=== PATIENT | female | born 1950 | race Asian ===

== ENCOUNTER 2018-01-09 13:09 | Outpatient (CLI) | payer MEDICARE, BC, SELFPAY ==
[2018-01-09 13:44] LABS: Abs Immature Grans 0.01 k/cumm (0.0-0.09); Absolute Basophil Count 0.01 k/cumm (0.0-0.2); Absolute Eosinophil Count 0.21 k/cumm (0.0-0.7); Absolute Lymphocyte Count 1.42 k/cumm (1.2-3.4); Absolute Neutrophil Count 2.07 k/cumm (1.2-6.7); Basophils % 0.3; Eosinophils % 5.4; HCT 36.4 % (36.0-46.0); HGB 12.5 g/dL (12.0-15.5); Immature Grans % 0.3; Lymphocytes % 36.2; Mean Corp. HGB Concentration 34.3 g/dL (32.0-36.0); Mean Corpuscular Hemoglobin 32.1 pg (27.0-33.0); Mean Corpuscular Volume 93.6 fL (80-95); Mean Platelet Volume 8.7 fL (8.0-11.0); Monocytes % 5.1; Neutrophils % 52.7; Platelet Count 187 x1000/uL (130-400); RBC 3.89 m/cumm (4.00-5.20); RBC Distribution Width 12.1 % (11.7-14.6); White Blood Cell Count 3.92 k/cumm (4.4-10.8)
[2018-01-09 13:58] LABS: ALT 20 U/L (12-78); AST 22 U/L (15-37); Albumin 3.4 g/dL (3.4-5.0); Alkaline Phosphatase 73 U/L (46-116); BUN 9 mg/dL (7-18); Bilirubin, Total 0.4 mg/dL (0.2-1.0); CREATININE 0.64 mg/dL (0.55-1.02); Calcium 8.8 mg/dL (8.5-10.1); Chloride 98 mmol/L (98-107); Glucose 99 mg/dL (70-100); Sodium 135 mmol/L (136-145); Total Protein 7.6 g/dL (6.4-8.2)
[2018-01-10 09:52] LABS: IgA 331 mg/dL (85-499); IgG 1750 mg/dL (610-1616); IgM 128 mg/dL (35-242); Kappa Free Light Chain 1.67 mg/dl (0.33-1.94); Lambda Free Light Chain 1.52 mg/dl (0.57-2.63)
[2018-01-10 13:17] LABS: Albumin 53.6 % (55.8-66.1); Total Protein 7.4 g/dl (6.3-8.2)
== END 2018-01-09 13:29 ==
PROVIDERS: PCP Emergency Medicine; Visit Provider Nurse Practitioner Family
DX: C90.00 Multiple myeloma not having achieved remission (principal)
CPT/HCPCS: 36415; 80053; 82784; 83883; 84165; 85025

== ENCOUNTER 2018-03-09 01:26 | Outpatient (CLI) | payer MEDICARE, BC, SELFPAY ==
--- NOTE | 2018-03-09 13:31 | DI.MAMMO_ITS ---
SYMPTOMS/DIAGNOSIS: SCREENING, Z12.31 BILATERAL SCREENING MAMMOGRAM: Mammograms were interpreted according to the usual protocol including computer analysis with CAD system, tomosynthesis and C view imaging. Comparison is made with exams from 2015 through 2017. The breasts are composed of heterogeneously dense fibroglandular tissue, breast density category C. No suspicious masses or suspicious microcalcifications are seen. There has been no significant change. IMPRESSION: Category 1C, negative mammogram. Yearly screening mammography is recommended. [facility] ASSESSMENT OF FINDINGS: Negative. Category 1. Patient will receive a letter notifying them of these results. Bi-RADS category C. The breasts are heterogeneously dense, which may obscure small masses.
== END 2018-03-09 01:46 ==
PROVIDERS: PCP Emergency Medicine; Visit Provider Family Medicine
DX: Z12.31 Encounter for screening mammogram for malignant neoplasm of breast (principal)
CPT/HCPCS: 77063; 77067

== ENCOUNTER 2018-04-20 12:59 | Outpatient (CLI) | payer MEDICARE, BC, SELFPAY ==
[2018-04-20 13:39] LABS: Absolute Basophil Count 0.01 k/cumm (0.0-0.2); Absolute Eosinophil Count 0.26 k/cumm (0.0-0.7); Absolute Lymphocyte Count 1.28 k/cumm (1.2-3.4); Absolute Monocyte Count 0.23 k/cumm (0.11-0.7); Absolute Neutrophil Count 1.98 k/cumm (1.2-6.7); Basophils % 0.3; Eosinophils % 6.9; HCT 36.3 % (36.0-46.0); HGB 12.7 g/dL (12.0-15.5); Mean Corpuscular Hemoglobin 32.5 pg (27.0-33.0); Mean Corpuscular Volume 92.8 fL (80-95); Mean Platelet Volume 8.9 fL (8.0-11.0); Monocytes % 6.1; Neutrophils % 52.7; Platelet Count 154 x1000/uL (130-400); RBC 3.91 m/cumm (4.00-5.20); RBC Distribution Width 11.9 % (11.7-14.6); White Blood Cell Count 3.76 k/cumm (4.4-10.8)
[2018-04-20 13:55] LABS: ALT 39 U/L (12-78); AST 25 U/L (15-37); Albumin 3.6 g/dL (3.4-5.0); Alkaline Phosphatase 74 U/L (46-116); Anion Gap 8.2 mmol/L (3-11); BUN 10 mg/dL (7-18); Bilirubin, Total 0.4 mg/dL (0.2-1.0); CO2 28.8 mmol/L (21.0-32.0); Calcium 8.9 mg/dL (8.5-10.1); Chloride 100 mmol/L (98-107); Glucose 92 mg/dL (70-100); Potassium 3.9 mmol/L (3.5-5.1); Sodium 137 mmol/L (136-145); Total Protein 7.6 g/dL (6.4-8.2)
[2018-04-21 11:23] LABS: IgA 289 mg/dL (85-499); IgG 1603 mg/dL (610-1616); IgM 123 mg/dL (35-242); Kappa Free Light Chain 1.61 mg/dl (0.33-1.94); Lambda Free Light Chain 1.06 mg/dl (0.57-2.63)
[2018-04-21 13:18] LABS: Albumin 55.7 % (55.8-66.1); Total Protein 7.3 g/dl (6.3-8.2)
== END 2018-04-20 13:19 ==
PROVIDERS: PCP Emergency Medicine; Visit Provider Internal Medicine Hematology & Oncology
DX: C90.00 Multiple myeloma not having achieved remission (principal)
CPT/HCPCS: 36415; 80053; 82784; 83883; 84165; 85025

== ENCOUNTER 2018-05-12 12:35 | Emergency (ER) | payer MEDICARE, BC, SELFPAY ==
[2018-05-12 12:44] VITALS: BP 116/80; PULSE 97; RESP 18; TEMP 36.5; O2SAT 97
--- NOTE | 2018-05-12 13:03 | ED.GENADUL_ITS ---
Discharge Plan Disposition Patient Disposition: HOME Condition: Good Discharge Details Chief Complaint: Cellulitis Clinical Impression: Shingles Primary Care Provider: Александр Davila ED Provider: Brigido Mcmanus Home Meds and New Rx's Prescriptions: New lidocaine [Lidoderm] 1 PATCH patch 1 patch Topical Q24H Qty: 4 RF: 0 acetaminophen [Mapap Extra Strength] 500 MG tablet 1,000 mg PO Q6H 5 Days Qty: 60 RF: 0 famciclovir 500 mg tablet 500 mg PO TID 7 Days Qty: 21 RF: 0 ibuprofen [Motrin IB] 200 MG tablet 600 mg PO Q6H 5 Days Qty: 60 RF: 0 capsaicin 0.1 % cream 1 applic TP TID Qty: 42.5 RF: 0 No Action flu vac 2018 [id number](PF) 45 mcg (15 mcg x 3)/0.5 mL syringe 45 mcg IM ONCE Qty: 0.5 RF: 0 omeprazole 40 MG capsule,delayed release(DR/EC) 40 mg PO DAILY Qty: 90 RF: 4 gabapentin 600 MG tablet 600 mg PO TID RF: 0 morphine [MS Contin] 30 MG tablet extended release 30 mg PO TID RF: 0 morphine 30 MG tablet 30 mg PO Q6H PRN RF: 0 diphenhydramine HCl 25 MG capsule 25 - 75 mg PO PRN PRNRF: 0 docusate sodium 100 MG capsule 1 cap PO DAILY PRN PRNRF: 0 aspirin [Aspirin Low-Strength] 81 MG tablet,chewable 81 mg PO DAILY RF: 0 Discharge Instructions Instructions: Arben (ED) Additional Instructions: Please take medication as directed. Please continue taking her gabapentin. If you notice any worsening of your symptoms, or any new symptoms such as vomiting, diarrhea, fever, chills, shortness of breath, chest pain, numbness, weakness, or fainting , please return immediately to the emergency department for reevaluation. Please follow up with your primary care provider as soon as possible for reassessment and reevaluation. As always, it was a pleasure participating in your medical care today. Referrals: Александр Davila, [Primary Care Provider] - Discharge Data Discharge Date/Time-TO BE ENTERED AT DEPARTURE: 05/12/18 13:35 Medical Decision Making This is a pleasant 67-year-old female who presents for evaluation of rash over her left neck, and scalp. Signs and symptoms are clinically consistent with shingles. She is on no immune suppressants. No evidence of involvement over the tip of the nose, the inside of the ear, or the eyes. Patient will be started on treatment for shingles. She has gabapentin we recommend that she continue this, we will start her on famciclovir, Lidoderm patch, spacing cream. I have extensively reviewed the treatment plan and discharge instructions with the patient and their family. I have addressed all patient concerns at this time. The patient and family was made aware of what symptoms to monitor for that would warrant a return to the emergency department. Discussed the plan with the patient and family, they demonstrate verbal understanding and agreement with our assessment and plan at this time. HPI General Date/Time Provider Initiated Documentation: 05/12/18 12:39 . HPI Narrative: This is a 67-year-old female with a past medical history of previous cancers which led to chronic pain and now chronic narcotic use for pain control, who presents today for rash on the left side of her face and neck and scalp. Patient states that it is been present for the last 2-3 days. She is concerned that it may be because of her shampoo but she has been using the shampoo for over a year. She describes the pain as tight, burning, and stabbing. She denies any severe headache or neck pain. She denies any fever or chills she did not get her shingles shot. She has no other complaints at this time. No other modifying factors. She denies any visual changes, numbness or tingling, auditory changes Related Data Home Medications Medication Instructions Recorded Confirmed omeprazole 40 mg PO DAILY #90 tab-cap 10/16/12 02/21/18 morphine 30 mg PO Q6H PRN 12/10/13 02/21/18 morphine [Ms Contin] 30 mg PO TID 12/10/13 02/21/18 aspirin [Aspirin Low-Strength] 81 mg PO DAILY 08/19/14 02/21/18 diphenhydramine HCl 25 - 75 mg PO PRN PRN 08/19/14 02/21/18 docusate sodium 1 cap PO DAILY PRN PRN 08/19/14 02/21/18 gabapentin 600 mg PO TID tab-cap 12/27/16 02/21/18 acetaminophen [Mapap Extra 1,000 mg PO Q6H 5 Days #60 tab 05/12/18 Strength] capsaicin 1 applic TP TID #42.5 gm 05/12/18 famciclovir 500 mg PO TID 7 Days #21 tab 05/12/18 ibuprofen [Motrin Ib] 600 mg PO Q6H 5 Days #60 tab 05/12/18 lidocaine [Lidoderm] 1 patch TOPICAL Q24H #4 patch 05/12/18 Previous Rx's Medication Instructions Recorded acetaminophen [Mapap Extra 1,000 mg PO Q6H 5 Days #60 tab 05/12/18 Strength] capsaicin 1 applic TP TID #42.5 gm 05/12/18 famciclovir 500 mg PO TID 7 Days #21 tab 05/12/18 ibuprofen [Motrin Ib] 600 mg PO Q6H 5 Days #60 tab 05/12/18 lidocaine [Lidoderm] 1 patch TOPICAL Q24H #4 patch 05/12/18 Allergies Allergy/AdvReac Type Severity Reaction Status Date / Time iodine Allergy Intermediate Unverified 02/21/18 13:19 DUST Allergy Unknown Uncoded 02/21/18 13:19 MOLD AND SMUT Allergy Unknown Uncoded 02/21/18 13:19 General Stated Complaint: Cellulitis RICKI: 4 Review of Systems Review of Systems All systems reviewed & are unremarkable except as noted in HPI and below PFSH Surgical History Biopsy of breast (05/11/16) Cholecystectomy Family History Mother No problems noted. Father No problems noted. Sister No problems noted. Sister No problems noted. Brother No problems noted. Brother No problems noted. Brother No problems noted. Brother No problems noted. Brother No problems noted. Son No problems noted. Social History highest education level completed: 3rd grade frequency: daily duration: 45-60 minutes/day Smoking and Tabacco status: Never alcohol intake: never substance use type: does not use shane/nondenominational: [employer] special shane needs: No Exam Narrative Exam Narrative: 1.Const: Well-nourished, Well-developed, appearing stated age 2.Eyes: PERRL, no conjunctival injection, and symmetrical lids. 3.ENT: Atraumatic external nose and ears. Moist MM. Neck: Symmetric, trachea midline, No thyromegaly. 4.CVS: +S1/S2, No murmurs or gallops. Peripheral pulses 2+ and equal in all extremities. Brisk capillary refill in all extremities. 5.RESP: Unlabored respiratory effort. Clear to auscultation bilaterally. No wheezes rales or rhonchi 6.GI: Soft, Nontender/Nondistended, No hepatosplenomegaly. No guarding or rebound. 7.MSK: Normocephalic/Atraumatic, Extremities w/o deformity or ttp No cyanosis or clubbing, Normal movement of all extremities 8.Skin: Warm, Dry. Notable vesicular lesions with signs and symptoms consistent with shingles of the dermatome of the left neck and scalp. There is some involvement over the posterior component of the ear. No evidence of shingles inside the ear or infection by the tympanic membrane. No shingles or rash or lesions on the nose, where the eyes. No evidence of staph scalded skin syndrome, Ferraro-Luis syndrome, toxic epidermal macro lysis. Negative Nikolsky sign. No oral lesions 9.Neuro: bobbin dumper II-XII grossly intact. Sensation grossly intact, no focal neurologic deficits. 10.Psych: (AAO) x3. Appropriate mood and affect Course Vital Signs Temperature 36.5 C 05/12/18 12:44 Pulse 97 H 05/12/18 12:44 Respiratory Rate 18 05/12/18 12:44 Blood Pressure 116/80 05/12/18 12:44 Pulse Oximetry 97 05/12/18 12:44 Temperature 36.5 C 05/12/18 12:44 Temperature Source Temporal Artery Scan 05/12/18 12:44 Pulse 97 H 05/12/18 12:44 Respiratory Rate 18 05/12/18 12:44 Respiratory Effort Non-Labored 05/12/18 12:46 Blood Pressure 116/80 05/12/18 12:44 Pulse Oximetry 97 05/12/18 12:44 Oxygen Delivery Method Room Air 05/12/18 12:44 Oxygen Flow Rate 0 05/12/18 12:44 Pain Level 10 05/12/18 12:44 Comment 05/12/18 12:44
[2018-05-12] MEDS: Lidocaine 5% Patch 1 PATCH TP (13:23)
[2018-05-12 13:43] VITALS: BP 116/80; PULSE 97; RESP 18; TEMP 36.5; O2SAT 97
== END 2018-05-12 13:35 | disposition home or self-care (01) ==
PROVIDERS: Emergency Provider Student in an Organized Health Care Education/Training Program; PCP Emergency Medicine
DX: B02.9 Zoster without complications (principal)
CPT/HCPCS: 99283

== ENCOUNTER 2018-05-17 12:30 | Outpatient (CLI) | payer MEDICARE, BC, SELFPAY ==
[2018-05-17 12:52] LABS: Absolute Basophil Count 0.01 k/cumm (0.0-0.2); Absolute Lymphocyte Count 1.84 k/cumm (1.2-3.4); Absolute Monocyte Count 0.23 k/cumm (0.11-0.7); Absolute Neutrophil Count 1.62 k/cumm (1.2-6.7); Basophils % 0.3; Eosinophils % 5.1; HCT 37.6 % (36.0-46.0); HGB 13.4 g/dL (12.0-15.5); Lymphocytes % 47.2; Mean Corp. HGB Concentration 35.6 g/dL (32.0-36.0); Mean Corpuscular Hemoglobin 32.1 pg (27.0-33.0); Mean Corpuscular Volume 90.2 fL (80-95); Mean Platelet Volume 8.4 fL (8.0-11.0); Monocytes % 5.9; Neutrophils % 41.5; Platelet Count 146 x1000/uL (130-400); RBC 4.17 m/cumm (4.00-5.20); RBC Distribution Width 11.8 % (11.7-14.6)
[2018-05-17 13:00] LABS: Bilirubin Negative (Negative); Blood Negative (Negative); Clarity Clear; Glucose Negative (Negative); Ketones Negative (Negative); Leukocyte Esterase Negative (Negative); Nitrite Negative (Negative); Urobilinogen 0.2 EU/dL (Up TO 0.2)
[2018-05-17 13:04] LABS: ALT 38 U/L (12-78); AST 37 U/L (15-37); Albumin 3.7 g/dL (3.4-5.0); Alkaline Phosphatase 91 U/L (46-116); BUN 8 mg/dL (7-18); Bilirubin, Total 0.3 mg/dL (0.2-1.0); CREATININE 0.71 mg/dL (0.55-1.02); Calcium 9.3 mg/dL (8.5-10.1); Chloride 97 mmol/L (98-107); Glucose 100 mg/dL (70-100); Potassium 4.2 mmol/L (3.5-5.1); Sodium 134 mmol/L (136-145); Total Protein 8.8 g/dL (6.4-8.2)
== END 2018-05-17 12:50 ==
PROVIDERS: PCP Family Medicine; Visit Provider Family Medicine
DX: B02.9 Zoster without complications (principal); R39.11 Hesitancy of micturition
CPT/HCPCS: 36415; 80053; 81003; 85025

== ENCOUNTER 2018-05-17 17:07 | Inpatient (IN) | payer MEDICARE, BC, SELFPAY ==
[2018-05-17 17:48] VITALS: BP 141/86; PULSE 78; RESP 18; TEMP 36.8; O2SAT 97
[2018-05-17 20:09] VITALS: BP 138/74; PULSE 74; RESP 18; TEMP 36.7; O2SAT 96
--- NOTE | 2018-05-17 21:02 | W.PM.HP.N ---
Date of service: 05/17/18 Time of Service: 21:02 Assessment and Plan (1) Disseminated zoster: Current visit: No Status: Acute change famcyclovir to iv acyclovir, incr. gabapentin to 900 mg TID and increase her morphine dose/frequency to help with her post herpetic pain. she will need 10 days of antiviral treatment however once all of her lesions have crusted over and she has no new outbreaks then she can be switched to oral meds. History of Present Illness Chief Complaint: shingles Narrative: 67 yr old female w/ PMH of uterine CA, multiple myeloma (currently in remission, not currently on immunosuppressive meds) who presents to the hospital as a direct admission from Dr. Berrios due to disseminated zoster that has been unresponsive to oral famcyclovir. The patient developed painful blistering dermatomal pattern lesions over the left side of her scalp, left cheek, external left ear, left neck 2 to 3 days prior to presenting to the ER on 05/12/2018 with the above complaints. she denies any eye pain, or pain inside her ears (but has pain over the external left ear), nor any fevers, headaches, or auditory changes. She was prescribed Famvir 500 mg tid x 7 days along w/ capsaicin 0.1% ointment, ibuprofen, and lidoderm patch. She has follow up with Dr Berrios today where she complained to him of unrelenting burning pain from the lesions over the left side of her face, neck, and scalp and development of new lesions over her right upper inner thigh, right buttock and over her right mid thoracic back. She still has no eye pain nor any lesions over over her eyes nor on the tip of her nose nor in her nostrils and none inside her mouth. She has a lesion over her right cheek near the stomal crease of her mouth. She still has no fevers, nor headaches other than pain w/ palpation of her scalp, however she has developed nausea and diarrhea having couple of watery stools today. She is admitted for iv acyclovir for treatment of disseminated zoster. Review of Systems Constitutional Reports difficulty sleeping, Denies fever(s) and Reports poor appetite Eyes Denies blurry vision, Denies change in vision, Denies diplopia, Reports eye discharge (complains of watery eyes), Denies loss of vision and Denies eye pain ENT Reports facial pain, Denies hearing loss and Denies mouth lesions Cardiovascular Reports system reviewed and no additional complaints, except as docu Respiratory Reports system reviewed and no additional complaints, except as docu Gastrointestinal Denies abdominal pain, Reports heartburn, Reports diarrhea, Reports loose stools, Reports nausea and Denies vomiting Genitourinary Reports system reviewed and no additional complaints, except as docu Musculoskeletal Reports system reviewed and no additional complaints, except as docu Integumentary/Breasts Reports as per HPI Neurologic Reports as per HPI and Denies loss of vision Psychiatric Reports system reviewed and no additional complaints, except as docu Endocrine Reports system reviewed and no additional complaints, except as docu Hematologic/Lymphatic Reports system reviewed and no additional complaints, except as docu Allergic/Immunologic Reports system reviewed and no additional complaints, except [facility] Medical History Psoriasis (Chronic) Onychomycosis (Chronic) Malignant neoplasm of uterus (Inactive) Chronic hepatitis B (Chronic 12/29/16) Multiple myeloma in remission (Chronic) GERD (gastroesophageal reflux disease) (Chronic) chronic diffuse bony pain (Chronic) Port catheter in place (Chronic) Surgical History H/O breast biopsy (Resolved) History of cholecystectomy (Resolved) Biopsy of breast (05/11/16) Cholecystectomy Family History Mother No problems noted. Father No problems noted. Sister No problems noted. Sister No problems noted. Brother No problems noted. Brother No problems noted. Brother No problems noted. Brother No problems noted. Brother No problems noted. Son No problems noted. Social History highest education level completed: 3rd grade frequency: daily duration: 45-60 minutes/day Smoking and Tabacco status: Never alcohol intake: never substance use type: does not use shane/[employer] special shane needs: No Meds Home Medications Medication Instructions Recorded Confirmed Type omeprazole 40 mg PO DAILY #90 tab-cap 10/16/12 05/17/18 History morphine 30 mg PO Q6H PRN 12/10/13 05/17/18 History morphine [Ms Contin] 30 mg PO TID 12/10/13 05/17/18 History aspirin [Aspirin Low-Strength] 81 mg PO DAILY 08/19/14 05/17/18 History diphenhydramine HCl 25 - 75 mg PO PRN PRN 08/19/14 05/17/18 History docusate sodium 1 cap PO DAILY PRN PRN 08/19/14 05/17/18 History gabapentin 600 mg PO TID tab-cap 12/27/16 05/17/18 History flu vacc 2018-(64yr 45 mcg IM ONCE #0.5 02/21/18 05/17/18 Clinic up)-MF59C(PF) 45 mcg(15 mcgx3)/0.5 mL IM syringe capsaicin 1 applic TP TID #42.5 gm 05/12/18 05/17/18 Rx lidocaine [Lidoderm] 1 patch TOPICAL Q24H #4 patch 05/12/18 05/17/18 Rx Allergies Allergy/AdvReac Type Severity Reaction Status Date / Time iodine Allergy Intermediate Unverified 05/17/18 11:24 DUST Allergy Unknown Uncoded 05/17/18 11:24 MOLD AND SMUT Allergy Unknown Uncoded 05/17/18 11:24 Exam Const General: cooperative, well developed, acute distress moderate, anxious and ill appearing acutely Nutritional Appearance: average body habitus Orientation: alert, awake and oriented x3 HENMT Head: scalp lesion vertex vesicle, left temporal vesicle, left occipital vesicle Ears: hearing grossly normal bilaterally and external ear abnormal auricular tenderness on the left and pain with movement of external ear on the left General nose exam: external nose normal and nasal mucous membranes and turbinates normal Face and sinus: face symmetric Mouth: oral mucosae normal, lip normal and tongue normal Throat: posterior oropharynx normal Eyes General: appearance normal, both eyes and all related structures Visual Hoover: normal visual hoover by confrontation Alignment and Position: alignment normal Periorbital: periorbital findings normal Eyelids: eyelids normal Conjunctivae: conjunctivae normal Sclera: sclerae normal Cornea: corneas normal Pupils: PERRL and normal by confrontation EOM: EOM intact bilaterally Direct ophthalmoscopy: normal light reflex Neck Neck: full ROM, no lymphadenopathy, no meningeal signs, trachea midline, supple and other (multiple erythematous, vesicular lesions over ext. ear, lobe, auricle) Carotids: normal carotid upstroke Chest Chest: normal inspection of the chest Resp Effort & Inspection: normal respiratory effort and able to speak in complete sentences Auscultation: clear to auscultation bilaterally Cardio Jugular venous pressure: no JVD Palpation: normal PMI Rate: regular rate Rhythm: regular rhythm Heart Sounds: S1 normal, S2 normal and normal, physiologic split S2 Pulses: normal peripheral pulses Back/Spine/Pelvis Back: no CVA tenderness Cervical Spine: normal cervical lordosis Thoracic/Lumbar Spine: thoracic and lumbar spine normal to inspection Skin Lesions: lesion noted vesicle left lateral scalp color with an erythematous base and violaceous and tender, vesicle left parietal region tender, vesicle left temporal region tender, vesicle left ear tender, vesicle left earlobe tender, vesicle left posterior auricular area tender, vesicle left neck tender, right back roller, right buttock tender, vesicle right dorsal upper leg tender Neuro General: alert, awake, oriented x3, moves all extremities and no focal motor deficits Cranial Nerves: CN's II-XI intact bilaterally Cognition: normal cognition Speech: speech normal Motor: muscle tone normal throughout, strength 5/5 throughout and no movement abnormalities noted Sensory Exam: no sensory deficits noted Extrem General: normal exam except as noted (as noted above per skin exam) and no clubbing, cyanosis or edema Psych Appearance: grossly normal Mental Status: mental status grossly normal Speech and Movement: speech and movement normal Mood: congruent mood Affect: normal affect Attitude: cooperative Thought Process: normal Thought Content: normal Insight: insight good Judgment: judgment good Results Labs : 05/19/18 07:00 05/18/18 11:20 Last Vital Signs Temp 36.7 C 05/17/18 20:09 Pulse 74 05/17/18 20:09 Resp 18 05/17/18 20:09 BP 138/74 05/17/18 20:09 Pulse Ox 96 05/17/18 20:09
--- NOTE | 2018-05-17 21:08 | HPE_ITS ---
Date of service: 05/17/18 Time of Service: 21:02 Assessment and Plan (1) Disseminated zoster: Current visit: No Status: Acute change famcyclovir to iv acyclovir, incr. gabapentin to 900 mg TID and increase her morphine dose/frequency to help with her post herpetic pain. she will need 10 days of antiviral treatment however once all of her lesions have crusted over and she has no new outbreaks then she can be switched to oral meds. History of Present Illness Chief Complaint: shingles Narrative: 67 yr old female w/ PMH of uterine CA, multiple myeloma (currently in remission, not currently on immunosuppressive meds) who presents to the hospital as a direct admission from Dr. Berrios due to disseminated zoster that has been unresponsive to oral famcyclovir. The patient developed painful blistering dermatomal pattern lesions over the left side of her scalp, left cheek, external left ear, left neck 2 to 3 days prior to presenting to the ER on 05/12/2018 with the above complaints. she denies any eye p ain, or pain inside her ears (but has pain over the external left ear), nor any fevers, headaches, or auditory changes. She was prescribed Famvir 500 mg tid x 7 days along w/ capsaicin 0.1% ointment, ibuprofen, and lidoderm patch. She has follow up with Dr Berrios today where she complained to him of unrelenting burning pain from the lesions over the left side of her face, neck, and scalp and development of new lesions over her right upper inner thigh, right buttock and over her right mid thoracic back. She still has no eye pain nor any lesions over over her eyes nor on the tip of her nose nor in her nostrils and none inside her mouth. She has a lesion over her right cheek near the stomal crease of her mouth. She still has no fevers, nor headaches other than pain w/ palpation of her scalp, however she has developed nausea and diarrhea having couple of watery stools today. She is admitted for iv acyclovir for treatment of disseminated zoster. Review of Systems Constitutional Reports difficulty sleeping, Denies fever(s) and Reports poor appetite Eyes Denies blurry vision, Denies change in vision, Denies diplopia, Reports eye discharge (complains of watery eyes), Denies loss of vision and Denies eye pain ENT Reports facial pain, Denies hearing loss and Denies mouth lesions Cardiovascular Reports system reviewed and no additional complaints, except as docu Respiratory Reports system reviewed and no additional complaints, except as docu Gastrointestinal Denies abdominal pain, Reports heartburn, Reports diarrhea, Reports loose stools, Reports nausea and Denies vomiting Genitourinary Reports system reviewed and no additional complaints, except as docu Musculoskeletal Reports system reviewed and no additional complaints, except as docu Integumentary/Breasts Reports as per HPI Neurologic Reports as per HPI and Denies loss of vision Psychiatric Reports system reviewed and no additional complaints, except as docu Endocrine Reports system reviewed and no additional complaints, except as docu Hematologic/Lymphatic Reports system reviewed and no additional complaints, except as docu Allergic/Immunologic Reports system reviewed and no additional complaints, except as docu PFSH Medical History Psoriasis (Chronic) Onychomycosis (Chronic) Malignant neoplasm of uterus (Inactive) Chronic hepatitis B (Chronic 12/29/16) Multiple myeloma in remission (Chronic) GERD (gastroesophageal reflux disease) (Chronic) chronic diffuse bony pain (Chronic) Port catheter in place (Chronic) Surgical History H/O breast biopsy (Resolved) History of cholecystectomy (Resolved) Biopsy of breast (05/11/16) Cholecystectomy Family History Mother No problems noted. Father No problems noted. Sister No problems noted. Sister No problems noted. Brother No problems noted. Brother No problems noted. Brother No problems noted. Brother No problems noted. Brother No problems noted. Son No problems noted. Social History highest education level completed: 3rd grade frequency: daily duration: 45-60 minutes/day Smoking and Tabacco status: Never alcohol intake: never substance use type: does not use shane/taoism: Quaker special shane needs: No Meds Home Medications Medication Instructions Recorded Confirmed Type omeprazole 40 mg PO DAILY #90 tab-cap 10/16/12 05/17/18 History morphine 30 mg PO Q6H PRN 12/10/13 05/17/18 History morphine [Ms Contin] 30 mg PO TID 12/10/13 05/17/18 History aspirin [Aspirin Low-Strength] 81 mg PO DAILY 08/19/14 05/17/18 History diphenhydramine HCl 25 - 75 mg PO PRN PRN 08/19/14 05/17/18 History docusate sodium 1 cap PO DAILY PRN PRN 08/19/14 05/17/18 History gabapentin 600 mg PO TID tab-cap 12/27/16 05/17/18 History flu vacc 2018-(64yr 45 mcg IM ONCE #0.5 02/21/18 05/17/18 Clinic up)-MF59C(PF) 45 mcg(15 mcgx3)/0.5 mL IM syringe capsaicin 1 applic TP TID #42.5 gm 05/12/18 05/17/18 Rx lidocaine [Lidoderm] 1 patch TOPICAL Q24H #4 patch 05/12/18 05/17/18 Rx Allergies Allergy/AdvReac Type Severity Reaction Status Date / Time iodine Allergy Intermediate Unverified 05/17/18 11:24 DUST Allergy Unknown Uncoded 05/17/18 11:24 MOLD AND SMUT Allergy Unknown Uncoded 05/17/18 11:24 Exam Const General: cooperative, well developed, acute distress moderate, anxious and ill appearing acutely Nutritional Appearance: average body habitus Orientation: alert, awake and oriented x3 HENMT Head: scalp lesion vertex vesicle, left temporal vesicle, left occipital vesicle Ears: hearing grossly normal bilaterally and external ear abnormal auricular tenderness on the left and pain with movement of external ear on the left General nose exam: external nose normal and nasal mucous membranes and turbinates normal Face and sinus: face symmetric Mouth: oral mucosae normal, lip normal and tongue normal Throat: posterior oropharynx normal Eyes General: appearance normal, both eyes and all related structures Visual Hoover: normal visual hoover by confrontation Alignment and Position: alignment normal Periorbital: periorbital findings normal Eyelids: eyelids normal Conjunctivae: conjunctivae normal Sclera: sclerae normal Cornea: corneas normal Pupils: PERRL and normal by confrontation EOM: EOM intact bilaterally Direct ophthalmoscopy: normal light reflex Neck Neck: full ROM, no lymphadenopathy, no meningeal signs, trachea midline, supple and other (multiple erythematous, vesicular lesions over ext. ear, lobe, auric le) Carotids: normal carotid upstroke Chest Chest: normal inspection of the chest Resp Effort & Inspection: normal respiratory effort and able to speak in complete sentences Auscultation: clear to auscultation bilaterally Cardio Jugular venous pressure: no JVD Palpation: normal PMI Rate: regular rate Rhythm: regular rhythm Heart Sounds: S1 normal, S2 normal and normal, physiologic split S2 Pulses: normal peripheral pulses Back/Spine/Pelvis Back: no CVA tenderness Cervical Spine: normal cervical lordosis Thoracic/Lumbar Spine: thoracic and lumbar spine normal to inspection Skin Lesions: lesion noted vesicle left lateral scalp color with an erythematous base and violaceous and tender, vesicle left parietal region tender, vesicle left temporal region tender, vesicle left ear tender, vesicle left earlobe tender, vesicle left posterior auricular area tender, vesicle left neck tender, right insulation board back tender, right buttock tender, vesicle right dorsal upper leg tender Neuro General: alert, awake, oriented x3, moves all extremities and no focal motor deficits Cranial Nerves: CN's II-XI intact bilaterally Cognition: normal cognition Speech: speech normal Motor: muscle tone normal throughout, strength 5/5 throughout and no movement abnormalities noted Sensory Exam: no sensory deficits noted Extrem General: normal exam except as noted (as noted above per skin exam) and no cl ubbing, cyanosis or edema Psych Appearance: grossly normal Mental Status: mental status grossly normal Speech and Movement: speech and movement normal Mood: congruent mood Affect: normal affect Attitude: cooperative Thought Process: normal Thought Content: normal Insight: insight good Judgment: judgment good Results Labs : 05/19/18 07:00 05/18/18 11:20 Last Vital Signs Temp 36.7 C 05/17/18 20:09 Pulse 74 05/17/18 20:09 Resp 18 05/17/18 20:09 BP 138/74 05/17/18 20:09 Pulse Ox 96 05/17/18 20:09
[2018-05-17] MEDS: Gabapentin 600 MG TAB PO (21:17)
[2018-05-17] MEDS: Lidocaine 5% Patch 1 PATCH TP (21:18)
[2018-05-17] MEDS: Famciclovir 500 MG TAB PO (21:56)
[2018-05-17] MEDS: Normal Saline 1,000 ML 125 ML IV (22:32)
[2018-05-18] MEDS: predniSONE 20 MG TAB 60 MG PO ×2 (01:36→08:45)
[2018-05-18] MEDS: Gabapentin 300 MG CAP PO (04:00)
[2018-05-18] MEDS: Gabapentin 300 MG CAP (04:56)
--- NOTE | 2018-05-18 07:27 | PDOC.CMIN ---
- If Service Date Differs Date of service: 05/18/18 Time of Service: 07:27 Care Management Initial Assess REASON FOR HOSPITALIZATION:: Disseminated Zoster PAST MEDICAL HISTORY/PAST SURGICAL HISTORY:: Psoriasis (Chronic). Onychomycosis (Chronic). Malignant neoplasm of uterus (Inactive). Chronic hepatitis B (Chronic 12/29/16). Multiple myeloma in remission (Chronic). GERD (gastroesophageal reflux disease) (Chronic). chronic diffuse bony pain (Chronic). Port catheter in place (Chronic). H/O breast biopsy (Resolved). History of cholecystectomy (Resolved). Biopsy of breast (05/11/16). Cholecystectomy PREVIOUS FUNCTIONAL STATUS/SOCIAL/FAMILY SUPPORTS:: Reyna resides with her Mick in [place]. She states that she has one son whom resides in [place] and she gets to see him once a year. Reyna states that she has had a lot of medical issues in the past and that it has taken a toll on her body. Reyna is independent at baseline, drives, and manages ADL's. CURRENT FUNCTIONAL STATUS:: Currently Reyna is sitting up in her bed, her Mick is in the room with her. ADVANCE DIRECTIVES:: None on file Has patient been provided with information about the portal?: Yes Did the patient sign up for the portal?: No CODE STATUS:: Full Code INSURANCE COVERAGE / FINANCIAL ISSUES:: Medicare, BCBS CURRENT HOME/COMMUNITY SERVICES/EQUIPMENT:: Currently Reyna has no services or medical equipment in the community. PRIMARY CARE PHYSICIAN:: Dr. Saha POTENTIAL DISCHARGE NEEDS:: F/U appointment with PCP PATIENT/FAMILY EDUCATION NEEDS:: Review DC instructions, any limitations, and ongoing DC planning discussion. Discuss 'Ask Me Three' ANTICIPATED BARRIERS TO DISCHARGE:: None identified at this time TRANSPORTATION:: Via private vehicle with Mick PLAN:: Reyna will return home with no anticipated services once medically cleared. She will F/U with PCP and plan of care as prescribed. Reyna's Mick will transport when ready.
--- NOTE | 2018-05-18 07:39 | INITIAL_ITS ---
- If Service Date Differs Date of service: 05/18/18 Time of Service: 07:27 Care Management Initial Assess REASON FOR HOSPITALIZATION:: Disseminated Zoster PAST MEDICAL HISTORY/PAST SURGICAL HISTORY:: Psoriasis (Chronic). Onychomycosis (Chronic). Malignant neoplasm of uterus (Inactive). Chronic hepatitis B (Chronic 12/29/16). Multiple myeloma in remission (Chronic). GERD (gastroesophageal reflux disease) (Chronic). chronic diffuse bony pain (Chronic ). Port catheter in place (Chronic). H/O breast biopsy (Resolved). History of cholecystectomy (Resolved). Biopsy of breast (05/11/16). Cholecystectomy PREVIOUS FUNCTIONAL STATUS/SOCIAL/FAMILY SUPPORTS:: Reyna resides with her Mick in [place]. She states that she has one son whom resides in [place] and she gets to see him once a year. Reyna states that she has had a lot of medical issues in the past and that it has taken a toll on her body. Reyna is independent at baseline, drives, and manages ADL's. CURRENT FUNCTIONAL STATUS:: Currently Reyna is sitting up in her bed, her Mick is in the room with her. ADVANCE DIRECTIVES:: None on file Has patient been provided with information about the portal?: Yes Did the patient sign up for the portal?: No CODE STATUS:: Full Code INSURANCE COVERAGE / FINANCIAL ISSUES:: Medicare, BCBS CURRENT HOME/COMMUNITY SERVICES/EQUIPMENT:: Currently Reyna has no services or medical equipment in the community. PRIMARY CARE PHYSICIAN:: Dr. Saha POTENTIAL DISCHARGE NEEDS:: F/U appointment with PCP PATIENT/FAMILY EDUCATION NEEDS:: Review DC instructions, any limitations, and ongoing DC planning discussion. Discuss 'Ask Me Three' ANTICIPATED BARRIERS TO DISCHARGE:: None identified at this time TRANSPORTATION:: Via private vehicle with Mick PLAN:: Reyna will return home with no anticipated services once medically cleared. She will F/U with PCP and plan of care as prescribed. Reyna's Mick will transport when ready.
[2018-05-18 07:45] VITALS: BP 141/84; PULSE 82; RESP 16; TEMP 36.7; O2SAT 95
[2018-05-18] MEDS: Aspirin 81 MG CHEW PO (08:44)
[2018-05-18] MEDS: Gabapentin 300 MG CAP 900 MG PO ×3 (08:44→20:10)
[2018-05-18] MEDS: Omeprazole 20 MG CAPCR 40 MG PO (08:45)
[2018-05-18] MEDS: Patch Removal 1 EACH TP (11:24)
[2018-05-18 11:46] LABS: ALT 34 U/L (12-78); AST 30 U/L (15-37); Albumin 3.4 g/dL (3.4-5.0); Alkaline Phosphatase 83 U/L (46-116); Anion Gap 10.6 mmol/L (3-11); BUN 7 mg/dL (7-18); Bilirubin, Direct 0.09 mg/dL (0.00-0.20); Bilirubin, Total 0.3 mg/dL (0.2-1.0); CO2 26.4 mmol/L (21.0-32.0); Calcium 8.8 mg/dL (8.5-10.1); Chloride 100 mmol/L (98-107); Glucose 158 mg/dL (70-100); Potassium 3.8 mmol/L (3.5-5.1); Sodium 137 mmol/L (136-145); Total Protein 8.1 g/dL (6.4-8.2)
[2018-05-18] MEDS: Normal Saline 1,000 ML 125 ML IV (12:46)
--- NOTE | 2018-05-18 13:20 | PHARADMIT ---
Addendum entered by Rajat Arechiga III 05/24/18 14:31: Pharmacy Note Subjective IV Acyclovir dc'd yesterday. SCr-1.97 improved today, Valtrex 1000mg Daily started. Chin lesions are crusting over Objective VS-OK K+5.3 H&H-up, Plts-177 Voids independently. Assessment Patiromer X 1 given, Plan Watch K+, Plan is for discharge home tomorrow Original Note: Addendum entered by Jane Saavedra 05/20/18 10:37: Pharmacy Note Subjective MD expects patient will require 1-2 more days of Acyclovir IV and steroids, until the lesions crust over Objective vs stable, pain 5-8/10 Assessment KCL x 1 , no med changes noted, gabapentin, lidoderm patch, morphine er and ir for pain Plan nursing to check for crusting lesions Original Note: Addendum entered by Rajat Arechiga III 05/19/18 16:50: Pharmacy Note Subjective MD expects patient will require 2-3 more days of Acyclovir IV and steroids, until the lesions crust over. Objective VS-OK Pain:5/10 H&H-10.7/30.8 Plts-168 Had BM today Assessment Capsaicin changed to TID prn,Lovenox started. Morphine PO for pain. Plan Waiting for Shingles lesions to crust over. Original Note: Admission Pharmacy Clinical Review ZOSTER (Disseminated) Code Status Full Code Current Weight Wgt-57.5 kg Renally Cleared and Narrow Therapeutic Index Meds CrCl~ 42.9mL/min Meds-OK QTc Value / Action Taken none current BP Control, Fever BP- 141/84 Tmax- 36.7C Electrolytes reviewed Na-137 K+3.8 Mag-2.0 DVT Prophylaxis ASA, Opiate Usage / Scheduled Bowel Regimen Ordered Yes Yes Plt/SCr for Heparin / Enoxaparin SCr-0.9 INR for Warfarin NA H/H stable, WBC/Bands NA Antibiotic appropriateness Acyclovir Cultures and Sensitivities Lactoferrin Surgical ABX d/c within 24 hr NA DM control / Insulin Dosing BG- 158 Heart Failure (Check EF%) (TOYA's, B-Block, Diuretics) NONE IV to PO Switch No Home Meds Reviewed Yes Home Meds Not Ordered Amoxil, Famvir, Comments
[2018-05-18 16:25] VITALS: BP 139/104; PULSE 103; RESP 18; TEMP 37.1; O2SAT 98
--- NOTE | 2018-05-18 17:08 | PGE_ITS ---
Date of Service Date of service: 05/18/18 Time of Service: 17:06 Assessment and Plan (1) Disseminated zoster: Current visit: No Status: Acute Improving. Continue IV Acyclovir, she will need 10 days of antiviral treatment however once all of her lesions have crusted over and she has no new outbreaks then she can be switched to oral antivirals. Continue gabapentin to 900 mg TID and PRN morphine. (2) DVT prophylaxis: Current visit: Yes Status: Acute Subcutaneous Lovenox. (3) Discharge planning issues: Current visit: Yes Status: Acute She is a FULL CODE. She will return home when she is medically stable. This case was discussed with Dr. Ott who is in agreement. Subjective Interval history since last seen: Reyna is a very pleasant 67-year-old female with a past medical history significant for uterine cancer, multiple myeloma (currently in remission, currently not on any immunosuppressive medications), and chornic hepatitis B who presented to the hospital yesterday due to disseminated zoster that has been unresponsive to oral antivirals. She is currently on IV acyclovir and oral prednisone. She reports lesions on the left side of her scalp, over her left ear, down the left side of her jaw, onto the left side of her face, (spares her eye), she has one lesion on below her nare on the right, one lesion under her left breast, on the right side of her back, right inner gluteal cleft, one on her left labia, and on the back of her right leg. She reports continued pain, which has improved mildly, she did not sleep well last night due to pain, she denies fevers, chills, shortness of breath, coughing, wheezing, chest pain, pressure, p alpitations, nausea, vomiting. She is eating and drinking and tolerating her diet. She did have some loose stools overnight, no loose stools reported today. She denies any dysuria or hematuria. Exam Narrative Exam Narrative: General: Awake and alert, sitting up in bed, in no acute distress. She is pleasant and cooperative, answers questions appropriately. Skin: Multiple lesions scattered about, some crusted, some remain vesicles (on left neck/face). She has lesions on the left side of her scalp, over her left ear, down the left side of her jaw, onto the left side of her face, (spares her eye), she has one lesion on below her nare on the right, one lesion under her left breast, on the right side of her back, right inner gluteal cleft, one on her left labia, and on the back of her right leg. HEENT: Normocephalic, atraumatic, mucous membranes moist, pupils equal and round. Neck: supple, no JVD. Respiratory: respirations even and unlabored, lung sounds clear to auscultation throughout. Cardiovasular: heart has regular rate and rhythm, no murmur appreciated. GI: abdomen soft, nontender, nondistended, normoactive bowel sounds throughout, no masses appreciated. Extremities: Well perfused, mild edema to her RLE. Mild muscle atrophy to her left calf. Pedal pulses palpable bilaterally. Objective Objective Clinical Data: Abnormal lab results 05/18/18 Range/Units 11:20 Glucose 158 H (70-100) mg/dL Vital Signs Temperature 37.1 C 05/18/18 16:25 Temperature Source Tympanic 05/18/18 16:25 Pulse 103 H 05/18/18 16:25 Pulse Rhythm Regular 05/18/18 09:10 Respiratory Rate 18 05/18/18 16:25 Respiratory Effort Non-Labored 05/18/18 09:10 Respiratory Depth Normal 05/18/18 09:10 Respiratory Pattern Normal 05/18/18 09:10 Blood Pressure 139/104 H 05/18/18 16:25 Pulse Oximetry 98 05/18/18 16:25 Oxygen Delivery Method Room Air 05/18/18 16:25 Oxygen Flow Rate 0 05/18/18 16:25 Pain Level 5 05/18/18 07:45 Intake & Output 05/17/18 05/18/18 05/18/18 23:59 11:59 23:59 Intake Total 240 / 240 1750 / 2240 490 / 2240 Output Total 500 / 500 200 / 500 300 / 500 Balance -260 / -260 1550 / 1740 190 / 1740 Weight 60.781 kg 57.5 kg Intake: IV 1510 / 1520 10 1520 Oral 240 / 240 240 / 720 480 / 720 Output: Urine 500 / 500 200 / 500 300 / 500 Other: Urine Color Yellow Yellow Yellow Urine Appearance Clear Urine Odor Normal Voiding Methods Toilet Toilet Toilet Laboratory Results Sodium 137 mmol/L (136-145) 05/18/18 11:20 Potassium 3.8 mmol/L (3.5-5.1) 05/18/18 11:20 Chloride 100 mmol/L (98-107) 05/18/18 11:20 Carbon Dioxide 26.4 mmol/L (21.0-32.0) 05/18/18 11:20 Anion Gap 10.6 mmol/L (3-11) 05/18/18 11:20 BUN 7 mg/dL (7-18) 05/18/18 11:20 Creatinine 0.90 mg/dL (0.55-1.02) 05/18/18 11:20 Estimated GFR/1.73 m2 >= 60.00 (mL/min/1.73m2) 05/18/18 11:20 Glucose 158 mg/dL (70-100) H 05/18/18 11:20 Calcium 8.8 mg/dL (8.5-10.1) 05/18/18 11:20 Magnesium 2.0 mg/dL (1.8-2.4) 05/18/18 11:20 Total Bilirubin 0.3 mg/dL (0.2-1.0) 05/18/18 11:20 Conjugated Bilirubin 0.09 mg/dL (0.00-0.20) 05/18/18 11:20 AST 30 U/L (15-37) 05/18/18 11:20 ALT 34 U/L (12-78) 05/18/18 11:20 Alkaline Phosphatase 83 U/L (46-116) 05/18/18 11:20 Total Protein 8.1 g/dL (6.4-8.2) 05/18/18 11:20 Albumin 3.4 g/dL (3.4-5.0) 05/18/18 11:20
[2018-05-18 17:09] VITALS: BP 138/87; PULSE 98; O2SAT 96
[2018-05-18] MEDS: Enoxaparin 40 MG/0.4 ML SYR SC (18:44)
[2018-05-18 20:07] VITALS: BP 144/80; PULSE 98; RESP 18; TEMP 37.1; O2SAT 97
[2018-05-18] MEDS: Acetaminophen 325 MG TAB PO (22:32)
[2018-05-19 00:14] VITALS: BP 140/80; PULSE 98; RESP 18; TEMP 37.1; O2SAT 95
[2018-05-19 07:27] LABS: HCT 30.8 % (36.0-46.0); HGB 10.7 g/dL (12.0-15.5); Mean Corp. HGB Concentration 34.7 g/dL (32.0-36.0); Mean Corpuscular Hemoglobin 31.8 pg (27.0-33.0); Mean Corpuscular Volume 91.4 fL (80-95); Mean Platelet Volume 8.7 fL (8.0-11.0); Platelet Count 168 x1000/uL (130-400); RBC 3.37 m/cumm (4.00-5.20); RBC Distribution Width 11.9 % (11.7-14.6)
[2018-05-19 07:48] VITALS: BP 133/80; PULSE 80; RESP 18; TEMP 36.9; O2SAT 98
[2018-05-19] MEDS: Gabapentin 300 MG CAP 900 MG PO ×3 (09:22→20:22)
[2018-05-19] MEDS: Omeprazole 20 MG CAPCR 40 MG PO (09:22)
[2018-05-19] MEDS: Aspirin 81 MG CHEW PO (09:23)
[2018-05-19] MEDS: predniSONE 20 MG TAB 60 MG PO (09:23)
[2018-05-19] MEDS: Potassium Chloride 20 MEQ TABCR PO (12:23)
--- NOTE | 2018-05-19 14:12 | PDOC.CMPRO ---
- If Service Date Differs Date of service: 05/19/18 Time of Service: 14:12 Care Management Progress Note S/O: Reyna is sitting up in her bed when this keno writer visits this morning, she is pleasant and receptive to discussion. Vi continues to report pain and states that it is difficult for her to get comfortable. Her has been at her bedside frequently and offers support. No change in DC plan. A: 67 y/o female admitted 05/17/18 for Disseminated Zoster P: Vi will return home with no anticipated services once medically cleared. She will F/U with PCP and plan of care as prescribed. Vi's Mick to transport when ready.
--- NOTE | 2018-05-19 14:18 | CMPROGNOTE_ITS ---
- If Service Date Differs Date of service: 05/19/18 Time of Service: 14:12 Care Management Progress Note S/O: Reyna is sitting up in her bed when this movie writer visits this morning, she is pleasant and receptive to discussion. Vi continues to report pain and states that it is difficult for her to get comfortable. Her has been at her bedside frequently and offers support. No change in DC plan. A: 67 y/o female admitted 05/17/18 for Disseminated Zoster P: Vi will return home with no anticipated services once medically cleared. She will F/U with PCP and plan of care as prescribed. Vi's Mick to transport when ready.
[2018-05-19 16:09] VITALS: BP 146/96; PULSE 79; RESP 18; TEMP 36.7; O2SAT 98
--- NOTE | 2018-05-19 16:44 | W.PM.PROGNOT ---
Date of Service Date of service: 05/19/18 Time of Service: 16:44 Assessment and Plan (1) Disseminated zoster: Current visit: No Status: Acute Improving. Continue IV Acyclovir, she will need 10 days of antiviral treatment however once all of her lesions have crusted over and she has no new outbreaks then she can be switched to oral antivirals. Continue gabapentin to 900 mg TID and PRN morphine. Capsaicin changed to PRN. (2) DVT prophylaxis: Current visit: Yes Status: Acute Subcutaneous Lovenox. (3) Discharge planning issues: Current visit: Yes Status: Acute She is a FULL CODE. She will return home when she is medically stable. This case was discussed with Dr. Ott who is in agreement. Subjective Interval history since last seen: Reyna is a very pleasant 67-year-old female with a past medical history significant for uterine cancer, multiple myeloma (currently in remission, currently not on any immunosuppressive medications), and chornic hepatitis B who presented to the hospital yesterday due to disseminated zoster that has been unresponsive to oral antivirals. She is currently on IV acyclovir and oral prednisone. She reports lesions on the left side of her scalp, over her left ear, down the left side of her jaw, onto the left side of her face, (spares her eye), she has one lesion on below her nare on the right, one lesion under her left breast, on the right side of her back, right inner gluteal cleft, one on her left labia, and on the back of her right leg. She reports continued pain, which has improved mildly, she did not sleep well last night due to pain. She did not experience relief from capsaicin cream. She denies fevers, chills, vision changes, eye pain, shortness of breath, coughing, wheezing, chest pain, pressure, palpitations, nausea, vomiting or diarrhea. She is eating and drinking and tolerating her diet. She denies any dysuria or hematuria. Exam Narrative Exam Narrative: General: Awake and alert, sitting up in bed, in no acute distress. She is pleasant and cooperative, answers questions appropriately. Skin: Multiple lesions scattered about, some crusted, some remain vesicles (on left neck/face). She has lesions on the left side of her scalp, over her left ear, down the left side of her jaw, onto the left side of her face, (spares her eye), she has one lesion on below her nare on the right, one lesion under her left breast, on the right side of her back, right inner gluteal cleft, one on her left labia (she declined inspection of her labia), and on the back of her right leg. HEENT: Normocephalic, atraumatic, mucous membranes moist, pupils equal and round. Neck: supple, no JVD. Respiratory: respirations even and unlabored, lung sounds clear to auscultation throughout. Cardiovasular: heart has regular rate and rhythm, no murmur appreciated. GI: abdomen soft, nontender, nondistended, normoactive bowel sounds throughout, no masses appreciated. Extremities: Well perfused, no significant edema to her lower extremities. Mild muscle atrophy to her left calf. Pedal pulses palpable bilaterally. Objective Objective Clinical Data: Abnormal lab results 05/19/18 Range/Units 07:00 RBC 3.37 L (4.00-5.20) m/cumm Hgb 10.7 L D (12.0-15.5) g/dL Hct 30.8 L (36.0-46.0) % Vital Signs Temperature 36.7 C 05/19/18 16:09 Temperature Source Tympanic 05/19/18 16:09 Pulse 79 05/19/18 16:09 Pulse Rhythm Regular 05/19/18 12:51 Respiratory Rate 18 05/19/18 16:09 Respiratory Effort 05/19/18 12:51 Respiratory Depth Shallow 05/19/18 12:51 Respiratory Pattern Normal 05/19/18 12:51 Blood Pressure 146/96 H 05/19/18 16:09 Pulse Oximetry 98 05/19/18 16:09 Oxygen Delivery Method Room Air 05/19/18 16:09 Oxygen Flow Rate 0 05/19/18 16:09 Pain Level 5 05/19/18 07:48 Comment 05/18/18 17:09 Intake & Output 05/18/18 05/19/18 05/19/18 23:59 11:59 23:59 Intake Total 2094.167 / 3844.167 1140 / 1140 Output Total 1000 / 1200 1250 / 1250 Balance 1094.167 / 2644.167 -110 / -110 Weight 56.7 kg Intake: IV 814.167 / 2324.167 500 / 500 Oral 1280 / 1520 640 / 640 Output: Urine 1000 / 1200 1250 / 1250 Other: Urine Color Yellow Yellow Urine Appearance Clear Clear Comment paitent is indepandabt in the bathroom Stool Size Moderate Stool Characteristics Soft Formed Brown Voiding Methods Toilet Toilet Laboratory Results WBC 6.70 k/cumm (4.4-10.8) 05/19/18 07:00 RBC 3.37 m/cumm (4.00-5.20) L 05/19/18 07:00 Hgb 10.7 g/dL (12.0-15.5) L D 05/19/18 07:00 Hct 30.8 % (36.0-46.0) L 05/19/18 07:00 MCV 91.4 fL (80-95) 05/19/18 07:00 MCH 31.8 pg (27.0-33.0) 05/19/18 07:00 MCHC 34.7 g/dL (32.0-36.0) 05/19/18 07:00 RDW 11.9 % (11.7-14.6) 05/19/18 07:00 Plt Count 168 x1000/uL (130-400) 05/19/18 07:00 MPV 8.7 fL (8.0-11.0) 05/19/18 07:00 Sodium 137 mmol/L (136-145) 05/18/18 11:20 Potassium 3.8 mmol/L (3.5-5.1) 05/18/18 11:20 Chloride 100 mmol/L (98-107) 05/18/18 11:20 Carbon Dioxide 26.4 mmol/L (21.0-32.0) 05/18/18 11:20 Anion Gap 10.6 mmol/L (3-11) 05/18/18 11:20 BUN 7 mg/dL (7-18) 05/18/18 11:20 Creatinine 0.90 mg/dL (0.55-1.02) 05/18/18 11:20 Estimated GFR/1.73 m2 >= 60.00 (mL/min/1.73m2) 05/18/18 11:20 Glucose 158 mg/dL (70-100) H 05/18/18 11:20 Calcium 8.8 mg/dL (8.5-10.1) 05/18/18 11:20 Magnesium 2.0 mg/dL (1.8-2.4) 05/18/18 11:20 Total Bilirubin 0.3 mg/dL (0.2-1.0) 05/18/18 11:20 Conjugated Bilirubin 0.09 mg/dL (0.00-0.20) 05/18/18 11:20 AST 30 U/L (15-37) 05/18/18 11:20 ALT 34 U/L (12-78) 05/18/18 11:20 Alkaline Phosphatase 83 U/L (46-116) 05/18/18 11:20 Total Protein 8.1 g/dL (6.4-8.2) 05/18/18 11:20 Albumin 3.4 g/dL (3.4-5.0) 05/18/18 11:20
[2018-05-19] MEDS: Enoxaparin 40 MG/0.4 ML SYR SC (18:12)
[2018-05-19] MEDS: Normal Saline Flush 10 ML SYR IVP (18:23)
[2018-05-19 23:40] VITALS: BP 140/86; PULSE 80; RESP 17; TEMP 36.4; O2SAT 100
[2018-05-20] MEDS: Omeprazole 20 MG CAPCR 40 MG PO (07:44)
[2018-05-20 07:45] VITALS: BP 144/86; PULSE 73; RESP 20; TEMP 36.7; O2SAT 98
[2018-05-20] MEDS: predniSONE 20 MG TAB 60 MG PO (07:45)
[2018-05-20] MEDS: Gabapentin 300 MG CAP 900 MG PO ×3 (07:45→20:40)
[2018-05-20] MEDS: Aspirin 81 MG CHEW PO (07:45)
[2018-05-20] MEDS: Normal Saline Flush 10 ML SYR IVP ×2 (07:45→15:41)
[2018-05-20 08:00] VITALS: BP 140/92; PULSE 78; RESP 18; TEMP 36.9; O2SAT 96
[2018-05-20 08:02] LABS: HCT 32.2 % (36.0-46.0); Mean Corp. HGB Concentration 34.2 g/dL (32.0-36.0); Mean Corpuscular Hemoglobin 31.3 pg (27.0-33.0); Mean Corpuscular Volume 91.7 fL (80-95); Platelet Count 187 x1000/uL (130-400); RBC 3.51 m/cumm (4.00-5.20); RBC Distribution Width 12.1 % (11.7-14.6); White Blood Cell Count 6.45 k/cumm (4.4-10.8)
[2018-05-20 12:23] LABS: Anion Gap 8.8 mmol/L (3-11); BUN 12 mg/dL (7-18); CO2 29.2 mmol/L (21.0-32.0); CREATININE 0.72 mg/dL (0.55-1.02); Calcium 8.6 mg/dL (8.5-10.1); Chloride 98 mmol/L (98-107); Glucose 92 mg/dL (70-100); Magnesium 2.1 mg/dL (1.8-2.4); Potassium 3.6 mmol/L (3.5-5.1); Sodium 136 mmol/L (136-145)
--- NOTE | 2018-05-20 13:42 | PDOC.CMPRO ---
Care Management Progress Note S/O: Independently ambulating in her room. Chatting on the phone and watching TV. No complaints offered. A: 67 y.o. female admitted for shingles outbreal and is receiving IV Acyclovir. Lesions are not yet crusting over. P:Return home when medically cleared for discharge. Mick will transport by private vehicle. No services needed.
[2018-05-20 15:53] VITALS: BP 148/84; PULSE 81; RESP 18; TEMP 36.4; O2SAT 94
[2018-05-20] MEDS: Enoxaparin 40 MG/0.4 ML SYR SC (17:42)
--- NOTE | 2018-05-20 19:33 | PGE_ITS ---
Date of Service Date of service: 05/20/18 Time of Service: 19:28 Assessment and Plan (1) Disseminated zoster: Current visit: No Status: Acute Improving. Continue IV Acyclovir. Needs otoscopic exam to ensure that she does not have any vessicles inside her ear. Continue gabapentin to 900 mg TID and PRN morphine. Capsaicin changed to PRN. Add amitryptilline. (2) Neuralgia, post-herpetic: Current visit: Yes Status: Acute Add amitryptilline; continue capsaicin and gabapentin (3) Multiple myeloma in remission: Current visit: No Status: Chronic F/u as outpatient (4) GERD (gastroesophageal reflux disease): Current visit: No Status: Chronic Continue PPI (5) Discharge planning issues: Current visit: No Status: Acute She is a FULL CODE. She will return home when she is medically stable. (6) DVT prophylaxis: Current visit: No Status: Acute Subcutaneous Lovenox. Subjective Interval history since last seen: Ms Haskins is complaining of a lot of pain under her L chin, on the left side of her face, her ear (sometimes inside her ear) and on top and at the back of her head. While she shows me her other lesions (LLE, under L breast, on her face under her nose), the left side of her neck/head is what bothers her the most. She can't sleep at night because of the pain. She denies dizziness, chest pain, shortness of breath, nausea, vomiting. Exam Narrative Exam Narrative: General: Very pleasant [place] female, appears uncomfortable HEENT: L-side of the neck/chin, ear and posterior head are covered in vessicles that are mostly crusted over today. Heart: RRR, no m/r/g Lungs: CTAB GI: abdomen is soft, nontender, nondistended Extremities; no e/c/c BLE's Objective Objective Clinical Data: Abnormal lab results 05/20/18 Range/Units 07:30 RBC 3.51 L (4.00-5.20) m/cumm Hgb 11.0 L (12.0-15.5) g/dL Hct 32.2 L (36.0-46.0) % Vital Signs Temperature 36.4 C L 05/20/18 15:53 Temperature Source Tympanic 05/20/18 15:53 Pulse 81 05/20/18 15:53 Pulse Rhythm Regular 05/20/18 07:45 Respiratory Rate 18 05/20/18 15:53 Respiratory Effort Non-Labored 05/20/18 07:45 Respiratory Depth Normal 05/20/18 07:45 Respiratory Pattern Normal 05/20/18 07:45 Blood Pressure 148/84 H 05/20/18 15:53 Pulse Oximetry 94 L 05/20/18 15:53 Oxygen Delivery Method Room Air 05/20/18 15:53 Oxygen Flow Rate 0 05/20/18 15:53 Pain Level 7 05/20/18 15:41 Comment 05/18/18 17:09 Intake & Output 05/19/18 05/20/18 05/20/18 23:59 11:59 23:59 Intake Total 610 / 1750 1240 / 2220 980 / 2220 Output Total 2125 / 3375 600 / 900 300 / 900 Balance -1515 / -1625 640 / 1320 680 / 1320 Intake: IV 250 / 750 520 / 780 260 / 780 Oral 360 / 1000 720 / 1440 720 / 1440 Output: Urine 2125 / 3375 600 / 900 300 / 900 Other: Urine Color Pale Yellow Yellow Urine Appearance Clear Clear Urine Odor None Comment paitent is indepandabt in the bathroom Pt toileting independently. Voiding Methods Toilet Toilet Toilet Laboratory Results WBC 6.45 k/cumm (4.4-10.8) 05/20/18 07:30 RBC 3.51 m/cumm (4.00-5.20) L 05/20/18 07:30 Hgb 11.0 g/dL (12.0-15.5) L 05/20/18 07:30 Hct 32.2 % (36.0-46.0) L 05/20/18 07:30 MCV 91.7 fL (80-95) 05/20/18 07:30 MCH 31.3 pg (27.0-33.0) 05/20/18 07:30 MCHC 34.2 g/dL (32.0-36.0) 05/20/18 07:30 RDW 12.1 % (11.7-14.6) 05/20/18 07:30 Plt Count 187 x1000/uL (130-400) 05/20/18 07:30 MPV 9.0 fL (8.0-11.0) 05/20/18 07:30 Sodium 136 mmol/L (136-145) 05/20/18 07:30 Potassium 3.6 mmol/L (3.5-5.1) 05/20/18 07:30 Chloride 98 mmol/L (98-107) 05/20/18 07:30 Carbon Dioxide 29.2 mmol/L (21.0-32.0) 05/20/18 07:30 Anion Gap 8.8 mmol/L (3-11) 05/20/18 07:30 BUN 12 mg/dL (7-18) 05/20/18 07:30 Creatinine 0.72 mg/dL (0.55-1.02) 05/20/18 07:30 Estimated GFR/1.73 m2 >= 60.00 (mL/min/1.73m2) 05/20/18 07:30 Glucose 92 mg/dL (70-100) D 05/20/18 07:30 Calcium 8.6 mg/dL (8.5-10.1) 05/20/18 07:30 Magnesium 2.1 mg/dL (1.8-2.4) 05/20/18 07:30 Total Bilirubin 0.3 mg/dL (0.2-1.0) 05/18/18 11:20 Conjugated Bilirubin 0.09 mg/dL (0.00-0.20) 05/18/18 11:20 AST 30 U/L (15-37) 05/18/18 11:20 ALT 34 U/L (12-78) 05/18/18 11:20 Alkaline Phosphatase 83 U/L (46-116) 05/18/18 11:20 Total Protein 8.1 g/dL (6.4-8.2) 05/18/18 11:20 Albumin 3.4 g/dL (3.4-5.0) 05/18/18 11:20
[2018-05-20] MEDS: Amitriptyline 10 MG TAB PO (22:10)
[2018-05-21] MEDS: Normal Saline Flush 10 ML SYR IVP ×3 (00:15→12:30)
[2018-05-21 00:58] VITALS: BP 140/82; PULSE 79; RESP 18; TEMP 36.5; O2SAT 95
[2018-05-21 07:40] VITALS: BP 122/64; PULSE 93; RESP 18; TEMP 37.5; O2SAT 94
[2018-05-21 07:44] LABS: HCT 30.9 % (36.0-46.0); HGB 10.8 g/dL (12.0-15.5); Mean Corpuscular Hemoglobin 32.3 pg (27.0-33.0); Mean Corpuscular Volume 92.5 fL (80-95); Mean Platelet Volume 8.8 fL (8.0-11.0); Platelet Count 172 x1000/uL (130-400); RBC 3.34 m/cumm (4.00-5.20); RBC Distribution Width 12.2 % (11.7-14.6); White Blood Cell Count 7.35 k/cumm (4.4-10.8)
[2018-05-21 07:55] LABS: Anion Gap 7.3 mmol/L (3-11); BUN 27 mg/dL (7-18); CO2 28.7 mmol/L (21.0-32.0); CREATININE 2.28 mg/dL (0.55-1.02); Calcium 8.6 mg/dL (8.5-10.1); Chloride 98 mmol/L (98-107); Glucose 105 mg/dL (70-100); Potassium 4.3 mmol/L (3.5-5.1); Sodium 134 mmol/L (136-145)
[2018-05-21] MEDS: Gabapentin 300 MG CAP 900 MG PO (08:47)
[2018-05-21] MEDS: Aspirin 81 MG CHEW PO (08:47)
[2018-05-21] MEDS: predniSONE 20 MG TAB 60 MG PO (08:47)
[2018-05-21] MEDS: Omeprazole 20 MG CAPCR 40 MG PO (08:48)
[2018-05-21] MEDS: Normal Saline 1,000 ML 100 ML IV ×2 (12:29→21:17)
[2018-05-21 15:41] VITALS: BP 114/62; PULSE 81; RESP 20; TEMP 37; O2SAT 94
--- NOTE | 2018-05-21 15:58 | W.PM.PROGNOT ---
Date of Service Date of service: 05/21/18 Time of Service: 15:58 Assessment and Plan (1) Disseminated zoster: Current visit: No Status: Acute Improving. Continue IV Acyclovir (dose adjusted) and prednisone. Continue gabapentin (dose adjusted due to TEX) and PRN morphine. Capsaicin PRN, amitryptilline. (2) [place] auricular syndrome: Current visit: Yes Status: Acute Appears to be better. Continue acyclovir/prednisone. (3) TEX (acute kidney injury): Current visit: Yes Status: Acute Gabapentin, lovenox, acyclovir doses adjusted. IVF started. Monitor Cr, I/O's and daily weights. (4) Neuralgia, post-herpetic: Current visit: Yes Status: Acute Continue amitryptilline; continue capsaicin and dose adjusted gabapentin (5) Multiple myeloma in remission: Current visit: No Status: Chronic F/u as outpatient (6) GERD (gastroesophageal reflux disease): Current visit: No Status: Chronic Continue PPI (7) Discharge planning issues: Current visit: No Status: Acute She is a FULL CODE. She will return home when she is medically stable. (8) DVT prophylaxis: Current visit: No Status: Acute Subcutaneous Lovenox. Subjective Interval history since last seen: Ms Haskins states her pain is a little bit better. It is still the worst in the back of her head and under her chin. She was able to sleep at night. Complains of feeling thirsty. Denies dizziness, chest pain, shortness of breath, nausea, vomiting. Exam Narrative Exam Narrative: General: Very pleasant [place] female, looks better today HEENT: L-side of the neck/chin with vessicles that are not quiet crusted over; vessciles over the L ear and posterior head are mostly crusted over today Otoscopic exam of L ear reveals crusted vessicles in the ear canal Heart: RRR, no m/r/g Lungs: CTAB GI: abdomen is soft, nontender, nondistended Extremities; no e/c/c BLE's Objective Objective Clinical Data: Abnormal lab results 05/21/18 05/21/18 Range/Units 07:12 07:12 RBC 3.34 L (4.00-5.20) m/cumm Hgb 10.8 L (12.0-15.5) g/dL Hct 30.9 L (36.0-46.0) % Sodium 134 L (136-145) mmol/L BUN 27 H D (7-18) mg/dL Creatinine 2.28 H D (0.55-1.02) mg/dL Glucose 105 H (70-100) mg/dL Vital Signs Temperature 37.0 C 05/21/18 15:41 Temperature Source Tympanic 05/21/18 15:41 Pulse 81 05/21/18 15:41 Pulse Rhythm Regular 05/21/18 08:40 Respiratory Rate 20 05/21/18 15:41 Respiratory Effort Non-Labored 05/21/18 08:40 Respiratory Depth Normal 05/21/18 08:40 Respiratory Pattern Normal 05/21/18 08:40 Blood Pressure 114/62 05/21/18 15:41 Pulse Oximetry 94 L 05/21/18 15:41 Oxygen Delivery Method Room Air 05/21/18 15:41 Oxygen Flow Rate 0 05/21/18 15:41 Pain Level 7 05/21/18 00:58 Comment 05/18/18 17:09 Intake & Output 05/20/18 05/21/18 05/21/18 23:59 11:59 23:59 Intake Total 980 / 2220 760 / 1075 315 / 1075 Output Total 1150 / 1750 450 / 450 Balance -170 / 470 310 / 625 315 / 625 Intake: IV 260 / 780 760 / 1075 315 / 1075 Oral 720 / 1440 Output: Urine 1150 / 1750 450 / 450 Other: Urine Color Yellow Yellow Urine Appearance Clear Clear Comment Pt toileting independently. Voiding Methods Toilet Toilet Laboratory Results WBC 7.35 k/cumm (4.4-10.8) 05/21/18 07:12 RBC 3.34 m/cumm (4.00-5.20) L 05/21/18 07:12 Hgb 10.8 g/dL (12.0-15.5) L 05/21/18 07:12 Hct 30.9 % (36.0-46.0) L 05/21/18 07:12 MCV 92.5 fL (80-95) 05/21/18 07:12 MCH 32.3 pg (27.0-33.0) 05/21/18 07:12 MCHC 35.0 g/dL (32.0-36.0) 05/21/18 07:12 RDW 12.2 % (11.7-14.6) 05/21/18 07:12 Plt Count 172 x1000/uL (130-400) 05/21/18 07:12 MPV 8.8 fL (8.0-11.0) 05/21/18 07:12 Sodium 134 mmol/L (136-145) L 05/21/18 07:12 Potassium 4.3 mmol/L (3.5-5.1) 05/21/18 07:12 Chloride 98 mmol/L (98-107) 05/21/18 07:12 Carbon Dioxide 28.7 mmol/L (21.0-32.0) 05/21/18 07:12 Anion Gap 7.3 mmol/L (3-11) 05/21/18 07:12 BUN 27 mg/dL (7-18) H D 05/21/18 07:12 Creatinine 2.28 mg/dL (0.55-1.02) H D 05/21/18 07:12 Estimated GFR/1.73 m2 21.30 (mL/min/1.73m2) 05/21/18 07:12 Glucose 105 mg/dL (70-100) H 05/21/18 07:12 Calcium 8.6 mg/dL (8.5-10.1) 05/21/18 07:12 Magnesium 2.0 mg/dL (1.8-2.4) 05/21/18 07:12 Total Bilirubin 0.3 mg/dL (0.2-1.0) 05/18/18 11:20 Conjugated Bilirubin 0.09 mg/dL (0.00-0.20) 05/18/18 11:20 AST 30 U/L (15-37) 05/18/18 11:20 ALT 34 U/L (12-78) 05/18/18 11:20 Alkaline Phosphatase 83 U/L (46-116) 05/18/18 11:20 Total Protein 8.1 g/dL (6.4-8.2) 05/18/18 11:20 Albumin 3.4 g/dL (3.4-5.0) 05/18/18 11:20
--- NOTE | 2018-05-21 16:49 | PDOC.CMPRO ---
Care Management Progress Note S/O: Independently ambulating in her room. watching TV. No complaints offered other than pain from lesions under her chin. A: 67 y.o. female admitted for shingles outbreak and is receiving IV Acyclovir. Lesions under her chin are not yet crusting over. P:Return home when medically cleared for discharge. Mick will transport by private vehicle. No services needed.
[2018-05-21] MEDS: Enoxaparin 30 MG/0.3 ML SYR SC (17:10)
[2018-05-21] MEDS: Amitriptyline 10 MG TAB PO (21:11)
[2018-05-22] MEDS: Acetaminophen 325 MG TAB PO (01:22)
[2018-05-22 01:25] VITALS: BP 161/90; PULSE 98; RESP 16; TEMP 37.1; O2SAT 95
[2018-05-22] MEDS: Normal Saline 1,000 ML 100 ML IV ×2 (06:00→16:38)
[2018-05-22 07:07] LABS: Abs Immature Grans 0.03 k/cumm (0.0-0.09); Absolute Lymphocyte Count 1.24 k/cumm (1.2-3.4); Absolute Monocyte Count 0.85 k/cumm (0.11-0.7); Absolute Neutrophil Count 5.23 k/cumm (1.2-6.7); HCT 28.5 % (36.0-46.0); Immature Grans % 0.4; Lymphocytes % 16.9; Mean Corp. HGB Concentration 35.1 g/dL (32.0-36.0); Mean Corpuscular Hemoglobin 32.4 pg (27.0-33.0); Mean Corpuscular Volume 92.2 fL (80-95); Mean Platelet Volume 8.3 fL (8.0-11.0); Monocytes % 11.6; Neutrophils % 71.1; Platelet Count 146 x1000/uL (130-400); RBC 3.09 m/cumm (4.00-5.20); White Blood Cell Count 7.35 k/cumm (4.4-10.8)
[2018-05-22 07:21] LABS: Anion Gap 6.9 mmol/L (3-11); BUN 38 mg/dL (7-18); CO2 26.1 mmol/L (21.0-32.0); CREATININE 2.61 mg/dL (0.55-1.02); Calcium 7.8 mg/dL (8.5-10.1); Chloride 104 mmol/L (98-107); Estimated GFR 18.22 (mL/min/1.73m2); Glucose 119 mg/dL (70-100); Magnesium 1.9 mg/dL (1.8-2.4); Potassium 4.3 mmol/L (3.5-5.1); Sodium 137 mmol/L (136-145)
[2018-05-22 07:55] VITALS: BP 124/71; PULSE 81; RESP 18; TEMP 36.4; O2SAT 92
[2018-05-22] MEDS: Omeprazole 20 MG CAPCR 40 MG PO (08:13)
[2018-05-22] MEDS: Gabapentin 300 MG CAP 600 MG PO (08:13)
[2018-05-22] MEDS: Aspirin 81 MG CHEW PO (08:13)
--- NOTE | 2018-05-22 14:55 | PDOC.CMPRO ---
- If Service Date Differs Date of service: 05/22/18 Time of Service: 14:55 Care Management Progress Note S/O: Reyna is sitting up in bed when this policy writer sales visits this morning, she is pleasant and receptive to discussion. Vi states that she is starting to feel better. Per morning report Vi to have bladder scans at this time. No change in DC plan. A: 67 y.o. female admitted for shingles outbreak and is receiving IV Acyclovir. Lesions under her chin are not yet crusting over. P:Return home when medically cleared for discharge. Mick will transport by private vehicle. No services needed.
[2018-05-22 16:09] VITALS: BP 128/98; PULSE 84; RESP 17; TEMP 36.7; O2SAT 97
[2018-05-22] MEDS: Enoxaparin 30 MG/0.3 ML SYR SC (18:09)
--- NOTE | 2018-05-22 20:17 | W.PM.PROGNOT ---
Date of Service Date of service: 05/22/18 Time of Service: 16:15 Assessment and Plan (1) Disseminated zoster: Current visit: No Status: Acute Improving. However, as the kidney function continues to worsen, consider discontinuing IV acyclovir. Finished prednisone. Continue gabapentin (dose adjusted due to TEX) and PRN morphine. Capsaicin PRN, amitryptilline. (2) [place] auricular syndrome: Current visit: Yes Status: Acute Appears to be better. Continue acyclovir. Finished prednisone. (3) TEX (acute kidney injury): Current visit: Yes Status: Acute Gabapentin, lovenox, acyclovir doses adjusted. Continue IV fluids. I am concerned that the creatinine is worse today. Consider stopping acyclovir entirely. Monitor Cr, I/O's and daily weights. (4) Neuralgia, post-herpetic: Current visit: Yes Status: Acute Continue amitryptilline; continue capsaicin and dose adjusted gabapentin (5) Multiple myeloma in remission: Current visit: No Status: Chronic F/u as outpatient (6) GERD (gastroesophageal reflux disease): Current visit: No Status: Chronic Continue PPI (7) Discharge planning issues: Current visit: No Status: Acute She is a FULL CODE. She will return home when she is medically stable. (8) DVT prophylaxis: Current visit: No Status: Acute Subcutaneous Lovenox. Subjective Interval history since last seen: Vi feels better today. She still reports pain at the back of her head, top of her head, under the chin, and into her ear, but all is better. She got more sleep last night as well. She denies any dizziness, chest pain, shortness of breath, cough, nausea, vomiting. She notes that her legs are a little bit more swollen today. Exam Narrative Exam Narrative: General: Very pleasant middle-aged [place] female, looks better today HEENT: L-side of the neck/chin with vessicles that are not quiet crusted over; vesicles over the L ear and posterior head are completely crusted over today Heart: RRR, no m/r/g Lungs: CTAB GI: abdomen is soft, nontender, nondistended Extremities; no e/c/c BLE's Objective Objective Clinical Data: Abnormal lab results 05/22/18 05/22/18 Range/Units 06:50 06:50 RBC 3.09 L (4.00-5.20) m/cumm Hgb 10.0 L (12.0-15.5) g/dL Hct 28.5 L (36.0-46.0) % Absolute Monocytes 0.85 H (0.11-0.7) k/cumm BUN 38 H D (7-18) mg/dL Creatinine 2.61 H (0.55-1.02) mg/dL Glucose 119 H (70-100) mg/dL Calcium 7.8 L (8.5-10.1) mg/dL Vital Signs Temperature 36.7 C 05/22/18 16:09 Temperature Source Tympanic 05/22/18 16:09 Pulse 84 05/22/18 16:09 Pulse Rhythm Regular 05/22/18 08:15 Respiratory Rate 17 05/22/18 16:09 Respiratory Effort Non-Labored 05/22/18 08:15 Respiratory Depth Normal 05/22/18 08:15 Respiratory Pattern Normal 05/22/18 08:15 Blood Pressure 128/98 H 05/22/18 16:09 Pulse Oximetry 97 05/22/18 16:09 Oxygen Delivery Method Room Air 05/22/18 16:09 Oxygen Flow Rate 0 05/22/18 16:09 Pain Level 4 05/22/18 08:15 Comment 05/22/18 01:25 Intake & Output 05/21/18 05/22/18 05/22/18 23:59 11:59 23:59 Intake Total 1610.000 / 2370.000 1781.667 / 3381.667 1600 / 3381.667 Output Total 400 / 850 400 / 1400 1000 / 1400 Balance 1210.000 / 6534.653 8645.667 / 1981.667 600 / 1980.667 Intake: IV 890.000 / 4678.983 0511.667 / 2121.667 1000 / 2121.667 Oral 720 / 720 660 / 1260 600 / 1260 Output: Urine 400 / 850 400 / 1400 1000 / 1400 Other: Urine Color Pale Yellow Yellow Yellow Urine Appearance Clear Clear Urine Odor Normal Comment Pt toileting independently. Stool Size Small Stool Characteristics Formed Voiding Methods Toilet Toilet Toilet Laboratory Results WBC 7.35 k/cumm (4.4-10.8) 05/22/18 06:50 RBC 3.09 m/cumm (4.00-5.20) L 05/22/18 06:50 Hgb 10.0 g/dL (12.0-15.5) L 05/22/18 06:50 Hct 28.5 % (36.0-46.0) L 05/22/18 06:50 MCV 92.2 fL (80-95) 05/22/18 06:50 MCH 32.4 pg (27.0-33.0) 05/22/18 06:50 MCHC 35.1 g/dL (32.0-36.0) 05/22/18 06:50 RDW 12.0 % (11.7-14.6) 05/22/18 06:50 Plt Count 146 x1000/uL (130-400) 05/22/18 06:50 MPV 8.3 fL (8.0-11.0) 05/22/18 06:50 Immature Gran % 0.4 05/22/18 06:50 Neutrophils % 71.1 05/22/18 06:50 Lymphocytes % 16.9 05/22/18 06:50 Monocytes % 11.6 05/22/18 06:50 Eosinophils % 0.0 05/22/18 06:50 Basophils % 0.0 05/22/18 06:50 Absolute Neutrophils 5.23 k/cumm (1.2-6.7) 05/22/18 06:50 Absolute Lymphocytes 1.24 k/cumm (1.2-3.4) 05/22/18 06:50 Absolute Monocytes 0.85 k/cumm (0.11-0.7) H 05/22/18 06:50 Absolute Eosinophils 0.00 k/cumm (0.0-0.7) 05/22/18 06:50 Absolute Basophils 0.00 k/cumm (0.0-0.2) 05/22/18 06:50 Sodium 137 mmol/L (136-145) 05/22/18 06:50 Potassium 4.3 mmol/L (3.5-5.1) 05/22/18 06:50 Chloride 104 mmol/L (98-107) 05/22/18 06:50 Carbon Dioxide 26.1 mmol/L (21.0-32.0) 05/22/18 06:50 Anion Gap 6.9 mmol/L (3-11) 05/22/18 06:50 BUN 38 mg/dL (7-18) H D 05/22/18 06:50 Creatinine 2.61 mg/dL (0.55-1.02) H 05/22/18 06:50 Estimated GFR/1.73 m2 18.22 (mL/min/1.73m2) 05/22/18 06:50 Glucose 119 mg/dL (70-100) H 05/22/18 06:50 Calcium 7.8 mg/dL (8.5-10.1) L 05/22/18 06:50 Magnesium 1.9 mg/dL (1.8-2.4) 05/22/18 06:50 Total Bilirubin 0.3 mg/dL (0.2-1.0) 05/18/18 11:20 Conjugated Bilirubin 0.09 mg/dL (0.00-0.20) 05/18/18 11:20 AST 30 U/L (15-37) 05/18/18 11:20 ALT 34 U/L (12-78) 05/18/18 11:20 Alkaline Phosphatase 83 U/L (46-116) 05/18/18 11:20 Total Protein 8.1 g/dL (6.4-8.2) 05/18/18 11:20 Albumin 3.4 g/dL (3.4-5.0) 05/18/18 11:20
[2018-05-22] MEDS: Amitriptyline 10 MG TAB PO (21:05)
[2018-05-22] MEDS: diphenhydrAMINE 25 MG CAP PO (21:05)
[2018-05-22 23:34] VITALS: BP 144/79; PULSE 83; RESP 18; TEMP 37.3; O2SAT 97
[2018-05-23] MEDS: Normal Saline 1,000 ML 100 ML IV ×3 (01:35→21:03)
[2018-05-23 07:35] VITALS: BP 131/77; PULSE 95; RESP 18; TEMP 37.2; O2SAT 94
[2018-05-23 07:58] LABS: Abs Immature Grans 0.05 k/cumm (0.0-0.09); Absolute Basophil Count 0.01 k/cumm (0.0-0.2); Absolute Eosinophil Count 0.06 k/cumm (0.0-0.7); Absolute Lymphocyte Count 1.62 k/cumm (1.2-3.4); Absolute Monocyte Count 0.57 k/cumm (0.11-0.7); Absolute Neutrophil Count 2.69 k/cumm (1.2-6.7); Basophils % 0.2; Eosinophils % 1.2; HCT 28.8 % (36.0-46.0); HGB 9.7 g/dL (12.0-15.5); Lymphocytes % 32.4; Mean Corp. HGB Concentration 33.7 g/dL (32.0-36.0); Mean Platelet Volume 8.7 fL (8.0-11.0); Monocytes % 11.4; Neutrophils % 53.8; Platelet Count 151 x1000/uL (130-400); RBC 3.03 m/cumm (4.00-5.20); RBC Distribution Width 12.7 % (11.7-14.6)
[2018-05-23 07:59] LABS: Anion Gap 5.5 mmol/L (3-11); BUN 34 mg/dL (7-18); CO2 27.5 mmol/L (21.0-32.0); CREATININE 2.42 mg/dL (0.55-1.02); Calcium 8.1 mg/dL (8.5-10.1); Chloride 109 mmol/L (98-107); Estimated GFR 19.88 (mL/min/1.73m2); Glucose 97 mg/dL (70-100); Magnesium 2.1 mg/dL (1.8-2.4); Potassium 5.3 mmol/L (3.5-5.1); Sodium 142 mmol/L (136-145)
[2018-05-23] MEDS: Gabapentin 300 MG CAP 600 MG PO (08:47)
[2018-05-23] MEDS: Aspirin 81 MG CHEW PO (08:47)
[2018-05-23] MEDS: Omeprazole 20 MG CAPCR 40 MG PO (08:47)
[2018-05-23] MEDS: Acetaminophen 325 MG TAB PO (08:47)
--- NOTE | 2018-05-23 10:18 | PDOC.CMPRO ---
- If Service Date Differs Date of service: 05/23/18 Time of Service: 10:18 Care Management Progress Note S/O: Reyna is sitting up in bed when this physician underwriter visits this afternoon. She is pleasant and receptive to discussion. Vi states that she is feeling okay today, and that the pain is much better than when she was first admitted to the hospital. A: 67 y.o. female admitted for shingles outbreak and is receiving IV Acyclovir. Lesions under her chin are not yet crusting over. P:Return home when medically cleared for discharge. Mick will transport by private vehicle. No services needed.
[2018-05-23 14:32] LABS: Anion Gap 5.6 mmol/L (3-11); BUN 28 mg/dL (7-18); CO2 28.4 mmol/L (21.0-32.0); CREATININE 2.43 mg/dL (0.55-1.02); Chloride 106 mmol/L (98-107); Creatine Kinase 45 U/L (26-192); Estimated GFR 19.79 (mL/min/1.73m2); Glucose 111 mg/dL (70-100); Potassium 5.2 mmol/L (3.5-5.1); Sodium 140 mmol/L (136-145)
[2018-05-23 15:50] VITALS: BP 139/84; PULSE 74; RESP 18; TEMP 37.6; O2SAT 97
--- NOTE | 2018-05-23 17:31 | W.PM.PROGNOT ---
Date of Service Date of service: 05/23/18 Time of Service: 17:31 Assessment and Plan (1) Disseminated zoster: Current visit: No Status: Acute Improving. Renal function not back to baseline. Prednisone course complete. Discontinue IV acyclovir today. Reassess BMP in the morning. Consider Oral Valacyclovir when renal function improves. (2) Prabhu Barbour auricular syndrome: Current visit: Yes Status: Acute Continues to improve. Continues to have pain in and around left ear. Prednisone completed. Discontinue acyclovir as above. (3) TEX (acute kidney injury): Current visit: Yes Status: Acute Creatinine improved but remains elevated. Continue IV fluids overnight. D/C acyclovir as above. Hold lovenox. Repeat BMP in the morning. Continue to monitor Intake and output and daily weights. (4) Neuralgia, post-herpetic: Current visit: Yes Status: Acute Continue amitryptilline; continue capsaicin and dose adjusted gabapentin. (5) Multiple myeloma in remission: Current visit: No Status: Chronic F/u as outpatient. (6) GERD (gastroesophageal reflux disease): Current visit: No Status: Chronic Continue PPI therapy. (7) DVT prophylaxis: Current visit: No Status: Acute Lovenox on hold due to TEX. Continue SCDs, TEDs, ambulation, hydration. (8) Discharge planning issues: Current visit: No Status: Acute She is a FULL CODE. She will return home when she is medically stable. This case was discussed with Dr. Goldman who is in agreement. Subjective Interval history since last seen: Reyna is a very pleasant 67 year female with a past medical history significant for multiple myeloma (in remission), uterine Ca, chronic hepatitis B and GERD, currently being treated for disseminated zoster. She has been on IV acyclovir, however, she has an acute kidney injury and the acyclovir has been stopped. She continues to report pain on her head (top and back), under her chin and in and around her left ear. She did not sleep well last night. The lesions are itchy. She denies dizziness, shortness of breath, coughing, wheezing, chest pain/pressure, palpitations, she continues to have edema in her legs. She is eating and drinking and tolerating her diet without nausea, vomiting or diarrhea. Exam Narrative Exam Narrative: General: Very pleasant Sammy female, laying in bed, appears fatigued. Answers questions appropriatly. HEENT: L-side of the neck/chin with vessicles that appear to be crusting over; vesicles over the L ear and posterior head are completely crusted over today Heart: regular rate and rhythm, no murmur appreciated. Lungs: respirations even and unlabored, lung sounds clear throughout. GI: abdomen is soft, nontender, nondistended with normoactive bowel sounds throughout. Extremities: She has trace to +1 pitting edema to BLEs, right greater than left. Peripheral pulses palpable bilaterally. Objective Objective Clinical Data: Abnormal lab results 05/23/18 05/23/18 05/23/18 Range/Units 07:16 07:16 14:10 RBC 3.03 L (4.00-5.20) m/cumm Hgb 9.7 L (12.0-15.5) g/dL Hct 28.8 L (36.0-46.0) % Potassium 5.3 H 5.2 H (3.5-5.1) mmol/L Chloride 109 H (98-107) mmol/L BUN 34 H 28 H (7-18) mg/dL Creatinine 2.42 H 2.43 H (0.55-1.02) mg/dL Glucose 111 H (70-100) mg/dL Calcium 8.1 L 8.0 L (8.5-10.1) mg/dL Vital Signs Temperature 37.6 C H 05/23/18 15:50 Temperature Source Tympanic 05/23/18 15:50 Pulse 74 05/23/18 15:50 Pulse Rhythm Regular 05/22/18 21:00 Respiratory Rate 18 05/23/18 15:50 Respiratory Effort Non-Labored 05/22/18 21:00 Respiratory Depth Normal 05/22/18 21:00 Respiratory Pattern Normal 05/22/18 21:00 Blood Pressure 139/84 05/23/18 15:50 Pulse Oximetry 97 05/23/18 15:50 Oxygen Delivery Method Room Air 05/23/18 15:50 Oxygen Flow Rate 0 05/23/18 15:50 Pain Level 4 05/23/18 08:47 Comment 05/22/18 01:25 Intake & Output 05/22/18 05/23/18 05/23/18 23:59 11:59 23:59 Intake Total 3160 / 3621.667 2968.333 / 2968.333 Output Total 4300 / 4700 1200 / 1700 500 / 1700 Balance -2460 / -7372.251 4746.333 / 1268.333 -500 / 1268.333 Intake: IV 1000 / 2121.667 1928.333 / 1928.333 Oral 840 / 1500 1040 / 1040 Output: Urine 2200 / 2600 1200 / 1700 500 / 1700 Stool 2100 / 2100 Other: Urine Color Yellow Pale Pale Yellow Yellow Urine Appearance Clear Clear Clear Urine Odor Normal None None Comment Void x1 in the toilet. Void x1 in the toilet. Stool Size Small Small Stool Characteristics Formed Soft Formed Brown Voiding Methods Toilet Toilet Toilet Laboratory Results WBC 5.00 k/cumm (4.4-10.8) D 05/23/18 07:16 RBC 3.03 m/cumm (4.00-5.20) L 05/23/18 07:16 Hgb 9.7 g/dL (12.0-15.5) L 05/23/18 07:16 Hct 28.8 % (36.0-46.0) L 05/23/18 07:16 MCV 95.0 fL (80-95) 05/23/18 07:16 MCH 32.0 pg (27.0-33.0) 05/23/18 07:16 MCHC 33.7 g/dL (32.0-36.0) 05/23/18 07:16 RDW 12.7 % (11.7-14.6) 05/23/18 07:16 Plt Count 151 x1000/uL (130-400) 05/23/18 07:16 MPV 8.7 fL (8.0-11.0) 05/23/18 07:16 Immature Gran % 1.0 05/23/18 07:16 Neutrophils % 53.8 05/23/18 07:16 Lymphocytes % 32.4 05/23/18 07:16 Monocytes % 11.4 05/23/18 07:16 Eosinophils % 1.2 05/23/18 07:16 Basophils % 0.2 05/23/18 07:16 Absolute Neutrophils 2.69 k/cumm (1.2-6.7) 05/23/18 07:16 Absolute Lymphocytes 1.62 k/cumm (1.2-3.4) 05/23/18 07:16 Absolute Monocytes 0.57 k/cumm (0.11-0.7) 05/23/18 07:16 Absolute Eosinophils 0.06 k/cumm (0.0-0.7) 05/23/18 07:16 Absolute Basophils 0.01 k/cumm (0.0-0.2) 05/23/18 07:16 Sodium 140 mmol/L (136-145) 05/23/18 14:10 Potassium 5.2 mmol/L (3.5-5.1) H 05/23/18 14:10 Chloride 106 mmol/L (98-107) 05/23/18 14:10 Carbon Dioxide 28.4 mmol/L (21.0-32.0) 05/23/18 14:10 Anion Gap 5.6 mmol/L (3-11) 05/23/18 14:10 BUN 28 mg/dL (7-18) H 05/23/18 14:10 Creatinine 2.43 mg/dL (0.55-1.02) H 05/23/18 14:10 Estimated GFR/1.73 m2 19.79 (mL/min/1.73m2) 05/23/18 14:10 Glucose 111 mg/dL (70-100) H 05/23/18 14:10 Calcium 8.0 mg/dL (8.5-10.1) L 05/23/18 14:10 Magnesium 2.1 mg/dL (1.8-2.4) 05/23/18 07:16 Total Bilirubin 0.3 mg/dL (0.2-1.0) 05/18/18 11:20 Conjugated Bilirubin 0.09 mg/dL (0.00-0.20) 05/18/18 11:20 AST 30 U/L (15-37) 05/18/18 11:20 ALT 34 U/L (12-78) 05/18/18 11:20 Alkaline Phosphatase 83 U/L (46-116) 05/18/18 11:20 Creatine Kinase 45 U/L (26-192) 05/23/18 14:10 Total Protein 8.1 g/dL (6.4-8.2) 05/18/18 11:20 Albumin 3.4 g/dL (3.4-5.0) 05/18/18 11:20 Stool Campylobacter PCR Cancelled 05/17/18 Unknown Stool Salmonella PCR Cancelled 05/17/18 Unknown Stool Shigella PCR Cancelled 05/17/18 Unknown Shiga Toxin (PCR) Cancelled 05/17/18 Unknown
[2018-05-23] MEDS: Amitriptyline 10 MG TAB PO (21:03)
[2018-05-23] MEDS: diphenhydrAMINE 25 MG CAP PO (21:03)
[2018-05-23 23:55] VITALS: BP 164/91; PULSE 93; RESP 18; TEMP 36.2; O2SAT 95
[2018-05-24] MEDS: Normal Saline 1,000 ML 100 ML IV (06:09)
[2018-05-24] MEDS: Acetaminophen 325 MG TAB PO (06:41)
[2018-05-24 07:36] LABS: HCT 31.2 % (36.0-46.0); HGB 10.5 g/dL (12.0-15.5); Mean Corp. HGB Concentration 33.7 g/dL (32.0-36.0); Mean Corpuscular Hemoglobin 32.2 pg (27.0-33.0); Mean Corpuscular Volume 95.7 fL (80-95); Platelet Count 177 x1000/uL (130-400); RBC 3.26 m/cumm (4.00-5.20); RBC Distribution Width 12.9 % (11.7-14.6); White Blood Cell Count 5.11 k/cumm (4.4-10.8)
[2018-05-24 07:47] LABS: Anion Gap 5.3 mmol/L (3-11); BUN 24 mg/dL (7-18); CO2 29.7 mmol/L (21.0-32.0); CREATININE 1.97 mg/dL (0.55-1.02); Calcium 9.3 mg/dL (8.5-10.1); Chloride 107 mmol/L (98-107); Estimated GFR 25.21 (mL/min/1.73m2); Glucose 101 mg/dL (70-100); Magnesium 1.9 mg/dL (1.8-2.4); Potassium 5.3 mmol/L (3.5-5.1); Sodium 142 mmol/L (136-145)
[2018-05-24 07:50] VITALS: BP 125/79; PULSE 94; RESP 18; TEMP 37.3; O2SAT 93
[2018-05-24] MEDS: Omeprazole 20 MG CAPCR 40 MG PO (08:56)
[2018-05-24] MEDS: Gabapentin 300 MG CAP 600 MG PO (08:56)
[2018-05-24] MEDS: Aspirin 81 MG CHEW PO (08:56)
[2018-05-24] MEDS: Normal Saline Flush 10 ML SYR IVP ×2 (08:57→09:40)
--- NOTE | 2018-05-24 14:47 | PDOC.CMPRO ---
- If Service Date Differs Date of service: 05/24/18 Time of Service: 14:47 Care Management Progress Note S/O: Reyna is sitting in bed today when this loan underwriter visits this morning, she is pleasant and receptive to discussion. Reyna discussed her stay with this loan underwriter this morning, and states that she hopes that she can go home soon. No change in DC plan at this time. A: 67 y.o. female admitted for shingles outbreak P:Return home when medically cleared for discharge. Mick will transport by private vehicle. No services needed.
--- NOTE | 2018-05-24 14:53 | CMPROGNOTE_ITS ---
- If Service Date Differs Date of service: 05/24/18 Time of Service: 14:47 Care Management Progress Note S/O: Reyna is sitting in bed today when this marketing underwriter visits this morning, she is pleasant and receptive to discussion. Reyna discussed her stay with this marketing underwriter this morning, and states that she hopes that she can go home soon. No change in DC plan at this time. A: 67 y.o. female admitted for shingles outbreak P:Return home when medically cleared for discharge. Mick will transport by private vehicle. No services needed.
--- NOTE | 2018-05-24 15:37 | W.PM.PROGNOT ---
Date of Service Date of service: 05/24/18 Time of Service: 15:37 Assessment and Plan (1) Disseminated zoster: Current visit: No Status: Acute Improving again today. Renal function not back to baseline. Prednisone course complete. IV acyclovir discontinued today. Oral Valacyclovir started today with renal dosing. Continue IV fluids at reduced rate. Reassess BMP in the morning. (2) Prabhu Barbour auricular syndrome: Current visit: Yes Status: Acute Continues to improve. Continues to have pain in and around left ear. Prednisone completed. Antivirals as above. (3) TEX (acute kidney injury): Current visit: Yes Status: Acute Creatinine improved but remains elevated. Continue IV fluids overnight at decreased rate. Acyclovir discontinued as above. Continue to hold lovenox. Valtrex started today, renally dosed. Repeat BMP in the morning. Continue to monitor Intake and output and daily weights. (4) Neuralgia, post-herpetic: Current visit: Yes Status: Acute Continue amitriptyline; continue capsaicin and dose adjusted gabapentin. (5) Multiple myeloma in remission: Current visit: No Status: Chronic F/u as outpatient. (6) GERD (gastroesophageal reflux disease): Current visit: No Status: Chronic Continue PPI therapy. (7) DVT prophylaxis: Current visit: No Status: Acute Lovenox on hold due to TEX. Continue SCDs, TEDs, ambulation, hydration. (8) Discharge planning issues: Current visit: No Status: Acute She is a FULL CODE. She will return home when she is medically stable. This case was discussed with Dr. Goldman who is in agreement. Subjective Interval history since last seen: Reyna is a very pleasant 67 year female with a past medical history significant for multiple myeloma (in remission), uterine Ca, chronic hepatitis B and GERD, currently being treated for disseminated zoster. She has been on IV acyclovir, however, she had an acute kidney injury and the acyclovir has been discontinued. Her renal function improved with IV fluids and she was started on Valtrex with renal dosing. Reyna continues to report pain mostly on her head (top and back), but also under her chin and in and around her left ear. She reports some improvement in her pain. She is not sleeping well. She was up voiding frequently last night. The lesions are itchy. She denies dizziness, shortness of breath, coughing, wheezing, chest pain/pressure, palpitations, she continues to have edema in her legs. She is eating and drinking and tolerating her diet without nausea, vomiting or diarrhea. Exam Narrative Exam Narrative: General: Very pleasant Sammy female, sitting up on the edge of the be. Answers questions appropriately. HEENT: L-side of the neck/chin with vesicles that appear crusted over; vesicles over the L ear and posterior head are completely crusted over today, the vesicles on her scalp appear to be crusted. Heart: regular rate and rhythm, no murmur appreciated. Lungs: respirations even and unlabored, lung sounds clear throughout. GI: abdomen is soft, nontender, nondistended with normoactive bowel sounds throughout. Extremities: She has trace edema to BLEs, right greater than left. Peripheral pulses palpable bilaterally. Objective Objective Clinical Data: Abnormal lab results 05/24/18 05/24/18 Range/Units 06:26 06:26 RBC 3.26 L (4.00-5.20) m/cumm Hgb 10.5 L (12.0-15.5) g/dL Hct 31.2 L (36.0-46.0) % MCV 95.7 H (80-95) fL Potassium 5.3 H (3.5-5.1) mmol/L BUN 24 H (7-18) mg/dL Creatinine 1.97 H (0.55-1.02) mg/dL Glucose 101 H (70-100) mg/dL Vital Signs Temperature 37.3 C 05/24/18 07:50 Temperature Source Tympanic 05/24/18 07:50 Pulse 94 H 05/24/18 07:50 Pulse Rhythm Regular 05/24/18 08:55 Respiratory Rate 18 05/24/18 07:50 Respiratory Effort Non-Labored 05/24/18 08:55 Respiratory Depth Normal 05/24/18 08:55 Respiratory Pattern Normal 05/24/18 08:55 Blood Pressure 125/79 05/24/18 07:50 Pulse Oximetry 93 L 05/24/18 07:50 Oxygen Delivery Method Room Air 05/24/18 07:50 Oxygen Flow Rate 0 05/24/18 07:50 Pain Level 4 05/23/18 08:47 Comment 05/22/18 01:25 Intake & Output 05/23/18 05/24/18 05/24/18 23:59 11:59 23:59 Intake Total 1936.667 / 4905.000 1520 / 1520 Output Total 1700 / 2900 1750 / 1750 Balance 236.667 / 2005.000 -230 / -230 Intake: IV 916.667 / 2845.000 920 / 920 Oral 1020 / 2060 600 / 600 Output: Urine 1700 / 2900 1750 / 1750 Other: Urine Color Yellow Pale Urine Appearance Clear Clear Urine Odor None None Comment Void x1 in the toilet. Pt toileting independently. Stool Size Moderate Stool Characteristics Soft Voiding Methods Toilet Toilet Laboratory Results WBC 5.11 k/cumm (4.4-10.8) 05/24/18 06:26 RBC 3.26 m/cumm (4.00-5.20) L 05/24/18 06:26 Hgb 10.5 g/dL (12.0-15.5) L 05/24/18 06:26 Hct 31.2 % (36.0-46.0) L 05/24/18 06:26 MCV 95.7 fL (80-95) H 05/24/18 06:26 MCH 32.2 pg (27.0-33.0) 05/24/18 06:26 MCHC 33.7 g/dL (32.0-36.0) 05/24/18 06:26 RDW 12.9 % (11.7-14.6) 05/24/18 06:26 Plt Count 177 x1000/uL (130-400) 05/24/18 06:26 MPV 9.0 fL (8.0-11.0) 05/24/18 06:26 Immature Gran % 1.0 05/23/18 07:16 Neutrophils % 53.8 05/23/18 07:16 Lymphocytes % 32.4 05/23/18 07:16 Monocytes % 11.4 05/23/18 07:16 Eosinophils % 1.2 05/23/18 07:16 Basophils % 0.2 05/23/18 07:16 Absolute Neutrophils 2.69 k/cumm (1.2-6.7) 05/23/18 07:16 Absolute Lymphocytes 1.62 k/cumm (1.2-3.4) 05/23/18 07:16 Absolute Monocytes 0.57 k/cumm (0.11-0.7) 05/23/18 07:16 Absolute Eosinophils 0.06 k/cumm (0.0-0.7) 05/23/18 07:16 Absolute Basophils 0.01 k/cumm (0.0-0.2) 05/23/18 07:16 Sodium 142 mmol/L (136-145) 05/24/18 06:26 Potassium 5.3 mmol/L (3.5-5.1) H 05/24/18 06:26 Chloride 107 mmol/L (98-107) 05/24/18 06:26 Carbon Dioxide 29.7 mmol/L (21.0-32.0) 05/24/18 06:26 Anion Gap 5.3 mmol/L (3-11) 05/24/18 06:26 BUN 24 mg/dL (7-18) H 05/24/18 06:26 Creatinine 1.97 mg/dL (0.55-1.02) H 05/24/18 06:26 Estimated GFR/1.73 m2 25.21 (mL/min/1.73m2) 05/24/18 06:26 Glucose 101 mg/dL (70-100) H 05/24/18 06:26 Calcium 9.3 mg/dL (8.5-10.1) 05/24/18 06:26 Magnesium 1.9 mg/dL (1.8-2.4) 05/24/18 06:26 Total Bilirubin 0.3 mg/dL (0.2-1.0) 05/18/18 11:20 Conjugated Bilirubin 0.09 mg/dL (0.00-0.20) 05/18/18 11:20 AST 30 U/L (15-37) 05/18/18 11:20 ALT 34 U/L (12-78) 05/18/18 11:20 Alkaline Phosphatase 83 U/L (46-116) 05/18/18 11:20 Creatine Kinase 45 U/L (26-192) 05/23/18 14:10 Total Protein 8.1 g/dL (6.4-8.2) 05/18/18 11:20 Albumin 3.4 g/dL (3.4-5.0) 05/18/18 11:20 Stool Campylobacter PCR Cancelled 05/17/18 Unknown Stool Salmonella PCR Cancelled 05/17/18 Unknown Stool Shigella PCR Cancelled 05/17/18 Unknown Shiga Toxin (PCR) Cancelled 05/17/18 Unknown
[2018-05-24 16:15] VITALS: BP 136/80; PULSE 80; RESP 16; TEMP 36.4; O2SAT 97
[2018-05-24] MEDS: Normal Saline 1,000 ML 50 ML IV (16:15)
--- NOTE | 2018-05-24 19:15 | NUR.NOTE ---
Nursing Note: Report received from the off going nurse, patient is currently in stable condition, resting in bed, no needs at this time, the bed is in the low and locked position, side rails up x2, call light within reach.
[2018-05-24] MEDS: Amitriptyline 10 MG TAB PO (21:32)
[2018-05-24 23:35] VITALS: BP 148/82; PULSE 90; RESP 16; TEMP 37.2; O2SAT 94
[2018-05-25] MEDS: Acetaminophen 325 MG TAB PO (04:42)
[2018-05-25 07:40] VITALS: BP 134/84; PULSE 90; RESP 18; TEMP 36.3; O2SAT 94
[2018-05-25] MEDS: Omeprazole 20 MG CAPCR 40 MG PO (08:53)
[2018-05-25] MEDS: Gabapentin 300 MG CAP 600 MG PO (08:53)
[2018-05-25] MEDS: Aspirin 81 MG CHEW PO (08:53)
[2018-05-25 10:58] LABS: Abs Immature Grans 0.05 k/cumm (0.0-0.09); Absolute Basophil Count 0.01 k/cumm (0.0-0.2); Absolute Eosinophil Count 0.32 k/cumm (0.0-0.7); Absolute Lymphocyte Count 1.38 k/cumm (1.2-3.4); Absolute Monocyte Count 0.41 k/cumm (0.11-0.7); Absolute Neutrophil Count 2.76 k/cumm (1.2-6.7); Basophils % 0.2; Eosinophils % 6.5; HCT 33.6 % (36.0-46.0); HGB 11.3 g/dL (12.0-15.5); Mean Corp. HGB Concentration 33.6 g/dL (32.0-36.0); Mean Corpuscular Volume 95.2 fL (80-95); Mean Platelet Volume 8.5 fL (8.0-11.0); Monocytes % 8.3; Platelet Count 181 x1000/uL (130-400); RBC 3.53 m/cumm (4.00-5.20); RBC Distribution Width 12.7 % (11.7-14.6); White Blood Cell Count 4.93 k/cumm (4.4-10.8)
[2018-05-25 11:11] LABS: Anion Gap 7.4 mmol/L (3-11); BUN 19 mg/dL (7-18); CO2 29.6 mmol/L (21.0-32.0); CREATININE 1.49 mg/dL (0.55-1.02); Calcium 8.7 mg/dL (8.5-10.1); Chloride 102 mmol/L (98-107); Glucose 100 mg/dL (70-100); Potassium 4.5 mmol/L (3.5-5.1); Sodium 139 mmol/L (136-145)
--- NOTE | 2018-05-25 14:00 | PDOC.CMPRO ---
- If Service Date Differs Date of service: 05/25/18 Time of Service: 14:00 Care Management Progress Note S/O: Reyna is sitting up in bed when this underwriter solicitation director visits this morning, she is pleasant and receptive to discussion. Reyna's Mick has been in to visit with her and is supportive. No change in DC plan. A: 67 y.o. female admitted for shingles outbreak P:Return home when medically cleared for discharge. Mick will transport by private vehicle. No services needed.
--- NOTE | 2018-05-25 14:12 | CMPROGNOTE_ITS ---
- If Service Date Differs Date of service: 05/25/18 Time of Service: 14:00 Care Management Progress Note S/O: Reyna is sitting up in bed when this technical writer and editor visits this morning, she is pleasant and receptive to discussion. Reyna's Mick has been in to visit with her and is supportive. No change in DC plan. A: 67 y.o. female admitted for shingles outbreak P:Return home when medically cleared for discharge. Mick will transport by private vehicle. No services needed.
--- NOTE | 2018-05-25 18:27 | W.PM.DS.N ---
Date of service: 05/25/18 Time of Service: 18:27 DS: Diagnosis Discharge Diagnosis (1) Disseminated zoster: Status: Acute (2) [place] auricular syndrome: Status: Acute (3) TEX (acute kidney injury): Status: Acute (4) Neuralgia, post-herpetic: Status: Acute (5) Multiple myeloma in remission: Status: Chronic (6) GERD (gastroesophageal reflux disease): Status: Chronic Discharge Plan Disposition Patient Disposition: HOME Condition: Improving Discharge Details Reason For Visit: ZOSTER Admit Date/Time: 05/17/18 17:07 Admit Provider: Cedrick Ott Attending Provider: Cedrick Ott [facility] Course: 67 yr old female w/ PMH of uterine CA, multiple myeloma (currently in remission, not currently on immunosuppressive meds) who presents to the hospital as a direct admission from Dr. Berrios due to disseminated zoster that has been unresponsive to oral famcyclovir. The patient developed painful blistering dermatomal pattern lesions over the left side of her scalp, left cheek, external left ear, left neck 2 to 3 days prior to presenting to the ER on 05/12/2018 with the above complaints. She was prescribed Famvir 500 mg tid x 7 days along w/ capsaicin 0.1% ointment, ibuprofen, and lidoderm patch. She is admitted for iv acyclovir for treatment of disseminated zoster. The acyclovir caused a bump in her creatinine to 1.61. Acyclovir was discontinued and she was changed to valacyclovir 1000 mg daily based on her creatinine clearance of 26. Her lesions have continued to improve and have all fully crusted over. She is still complaining of a significant significant amount of postherpetic neuralgic pain along the left side of her scalp, left ear, left neck. She did have a few satellite lesions in her mid back, mid left buttocks and behind her left thigh that have completely crusted over none grew larger than 7 mm in size. I spoke with Dr. Pradhan, hematology. She felt that she should be on chronic suppressive therapy and we decided on valacyclovir 500 mg twice daily. She will continue on the gabapentin at 600 mg daily based on her creatinine clearance. She will continue on the MS Contin 30 mg 3 times daily for continued pain control. Home Meds and New Rx's Prescriptions: New amitriptyline 10 mg Tablet 10 mg PO HS Qty: 30 RF: 0 gabapentin 300 mg Capsule 600 mg PO DAILY Qty: 60 RF: 3 valacyclovir 500 mg tablet 500 mg PO BID Qty: 60 RF: 3 Continued flu vac 2017 [id number](PF) 45 mcg (15 mcg x 3)/0.5 mL syringe 45 mcg IM ONCE Qty: 0.5 RF: 0 omeprazole 40 MG capsule,delayed release(DR/EC) 40 mg PO DAILY Qty: 90 RF: 4 morphine [MS Contin] 30 MG tablet extended release 30 mg PO TID RF: 0 morphine 30 MG tablet 30 mg PO Q6H PRN RF: 0 diphenhydramine HCl 25 MG capsule 25 - 75 mg PO PRN PRNRF: 0 docusate sodium 100 MG capsule 1 cap PO DAILY PRN PRNRF: 0 aspirin [Aspirin Low-Strength] 81 MG tablet,chewable 81 mg PO DAILY RF: 0 lidocaine [Lidoderm] 1 PATCH patch 1 patch Topical Q24H Qty: 4 RF: 0 capsaicin 0.1 % cream 1 applic TP TID Qty: 42.5 RF: 0 Discontinued gabapentin 600 MG tablet 600 mg PO TID RF: 0 Discharge Instructions Instructions: Shingles (DC) Stand Alone Forms: Nursing Discharge Form Referrals: Anu Roblero MD [ [facility] STAFF PHYSICIAN] - 05/31/18 12:30 pm Activity:: Activity as Tolerated Equipment/Supplies:: No Equipment Needed Diet:: As Tolerated Discharge Orders Discharge Orders: Discharge Order (Routine); Ordered 05/25/18 Ordered By: Eros Pak Discharge Data Discharge Date/Time-TO BE ENTERED AT DEPARTURE: 05/25/18 17:15 DS: Summary Time Spent with Patient Greater than 30 minutes Exam Narrative Exam Narrative: The patient has zoster rash on the left side of her face involving her left cheek, left neck, left scalp. There is no apparent involvement of her left eye. She had 3 other areas that had crusted over lesions that were satellite lesions on her left buttocks left posterior thigh and on her back. All of the lesions had crusted over and did not appear infected. She was complaining of pain primarily in the left side of her head but states it was better today. DS: Data Vitals/I&O Vitals and I&O: Vital Signs Temperature 36.3 C L 05/25/18 07:40 Temperature Source Tympanic 05/25/18 07:40 Pulse 90 05/25/18 07:40 Pulse Rhythm Regular 05/25/18 16:00 Respiratory Rate 18 05/25/18 07:40 Respiratory Effort Non-Labored 05/25/18 16:00 Respiratory Depth Normal 05/25/18 16:00 Respiratory Pattern Normal 05/25/18 16:00 Blood Pressure 134/84 05/25/18 07:40 Pulse Oximetry 94 L 05/25/18 07:40 Oxygen Delivery Method Room Air 05/25/18 07:40 Oxygen Flow Rate 0 05/25/18 07:40 Pain Level 1 05/25/18 05:42 Comment 05/22/18 01:25 Intake & Output 05/24/18 05/25/18 05/25/18 23:59 11:59 23:59 Intake Total 1755.834 / 3275.834 450 / 750 300 / 750 Output Total 950 / 2700 800 / 800 Balance 805.834 / 575.834 -350 / -50 300 / -50 Weight 59.8 kg Intake: IV 1095.834 / 2015.834 Oral 660 / 1260 450 / 750 300 / 750 Output: Urine 950 / 2700 800 / 800 Other: Urine Color Pale Pale Yellow Urine Appearance Clear Clear Urine Odor Strong Normal Comment reports voiding w/o difficuly Voiding Methods Toilet Toilet Labs on day of discharge: Labs from last 24 hours 05/25/18 05/25/18 10:50 10:50 WBC 4.93 RBC 3.53 L Hgb 11.3 L Hct 33.6 L MCV 95.2 H MCH 32.0 MCHC 33.6 RDW 12.7 Plt Count 181 MPV 8.5 Immature Gran % 1.0 Neutrophils % 56.0 Lymphocytes % 28.0 Monocytes % 8.3 Eosinophils % 6.5 Basophils % 0.2 Absolute Neutrophils 2.76 Absolute Lymphocytes 1.38 Absolute Monocytes 0.41 Absolute Eosinophils 0.32 Absolute Basophils 0.01 Sodium 139 Potassium 4.5 Chloride 102 Carbon Dioxide 29.6 Anion Gap 7.4 BUN 19 H Creatinine 1.49 H Estimated GFR/1.73 m2 34.80 Glucose 100 Calcium 8.7 [facility] Medical History Psoriasis (Chronic) Onychomycosis (Chronic) Malignant neoplasm of uterus (Inactive) Chronic hepatitis B (Chronic 12/29/16) Multiple myeloma in remission (Chronic) GERD (gastroesophageal reflux disease) (Chronic) chronic diffuse bony pain (Chronic) Port catheter in place (Chronic) Surgical History H/O breast biopsy (Resolved) History of cholecystectomy (Resolved) Biopsy of breast (05/11/16) Cholecystectomy Family History Mother No problems noted. Father No problems noted. Sister No problems noted. Sister No problems noted. Brother No problems noted. Brother No problems noted. Brother No problems noted. Brother No problems noted. Brother No problems noted. Son No problems noted. Social History highest education level completed: 3rd grade frequency: daily duration: 45-60 minutes/day Smoking and Tabacco status: Never alcohol intake: never substance use type: does not use shane/zoroastrian: Jew special shane needs: No
--- NOTE | 2018-05-25 18:30 | DSE_ITS ---
Date of service: 05/25/18 Time of Service: 18:27 DS: Diagnosis Discharge Diagnosis (1) Disseminated zoster: Status: Acute (2) [place] auricular syndrome: Status: Acute (3) TEX (acute kidney injury): Status: Acute (4) Neuralgia, post-herpetic: Status: Acute (5) Multiple myeloma in remission: Status: Chronic (6) GERD (gastroesophageal reflux disease): Status: Chronic Discharge Plan Disposition Patient Disposition: HOME Condition: Improving Discharge Details Reason For Visit: ZOSTER Admit Date/Time: 05/17/18 17:07 Admit Provider: Cedrick Ott Attending Provider: Cedrick Ott [facility] Hospital Course: 67 yr old female w/ PMH of uterine CA, multiple myeloma (currently in remission, not currently on immunosuppressive meds) who presents to the hospital as a direct admission from Dr. Berrios due to disseminated zoster that has been unresponsive to oral famcyclovir. The patient developed painful blistering dermatomal pattern lesions over the left side of her scalp, left cheek, external left ear, left neck 2 to 3 days prior to presenting to the ER on 05/12/2018 with the above complaints. She was prescribed Famvir 500 mg tid x 7 days along w/ capsaicin 0.1% ointment, ibuprofen, and lidoderm patch. She is admitted for iv acyclovir for treatment of disseminated zoster. The acyclovir caused a bump in her creatinine to 1.61. Acyclovir was discontinued and she was changed to valacyclovir 1000 mg daily based on her creatinine clearance of 26. Her lesions have continued to improve and have all fully crusted over. She is still complaining of a significant significant amount of postherpetic neuralgic pain along the left side of her scalp, left ear, left neck. She did have a few satellite lesions in her mid back, mid left buttocks and behind her left thigh that have completely crusted over none grew larger than 7 mm in size. I spoke with Dr. Pradhan, hematology. She felt that she should be on chronic suppressive therapy and we decided on valacyclovir 500 mg twice daily. She will continue on the gabapentin at 600 mg daily based on her creatinine clearance. She will continue on the MS Contin 30 mg 3 times daily for continued pain control. Home Meds and New Rx's Prescriptions: New amitriptyline 10 mg Tablet 10 mg PO HS Qty: 30 RF: 0 gabapentin 300 mg Capsule 600 mg PO DAILY Qty: 60 RF: 3 valacyclovir 500 mg tablet 500 mg PO BID Qty: 60 RF: 3 Continued flu vac 2017 [id number](PF) 45 mcg (15 mcg x 3)/0.5 mL syringe 45 mcg IM ONCE Qty: 0.5 RF: 0 omeprazole 40 MG capsule,delayed release(DR/EC) 40 mg PO DAILY Qty: 90 RF: 4 morphine [MS Contin] 30 MG tablet extended release 30 mg PO TID RF: 0 morphine 30 MG tablet 30 mg PO Q6H PRN RF: 0 diphenhydramine HCl 25 MG capsule 25 - 75 mg PO PRN PRNRF: 0 docusate sodium 100 MG capsule 1 cap PO DAILY PRN PRNRF: 0 aspirin [Aspirin Low-Strength] 81 MG tablet,chewable 81 mg PO DAILY RF: 0 lidocaine [Lidoderm] 1 PATCH patch 1 patch Topical Q24H Qty: 4 RF: 0 capsaicin 0.1 % cream 1 applic TP TID Qty: 42.5 RF: 0 Discontinued gabapentin 600 MG tablet 600 mg PO TID RF: 0 Discharge Instructions Instructions: [place] (DC) Stand Alone Forms: Nursing Discharge Form Referrals: Anu Roblero MD [ [facility] STAFF PHYSICIAN] - 05/31/18 12:30 pm Activity:: Activity as Tolerated Equipment/Supplies:: No Equipment Needed Diet:: As Tolerated Discharge Orders Discharge Orders: Discharge Order (Routine); Ordered 05/25/18 Ordered By: Eros Pak Discharge Data Discharge Date/Time-TO BE ENTERED AT DEPARTURE: 05/25/18 17:15 DS: Summary Time Spent with Patient Greater than 30 minutes Exam Narrative Exam Narrative: The patient has zoster rash on the left side of her face involving her left cheek, left neck, left scalp. There is no apparent involvement of her left eye. She had 3 other areas that had crusted over lesions that were satellite lesions on her left buttocks left posterior thigh and on her back. All of the lesions had crusted over and did not appear infected. She was complaining of pain primarily in the left side of her head but states it was better today. DS: Data Vitals/I&O Vitals and I&O: Vital Signs Temperature 36.3 C L 05/25/18 07:40 Temperature Source Tympanic 05/25/18 07:40 Pulse 90 05/25/18 07:40 Pulse Rhythm Regular 05/25/18 16:00 Respiratory Rate 18 05/25/18 07:40 Respiratory Effort Non-Labored 05/25/18 16:00 Respiratory Depth Normal 05/25/18 16:00 Respiratory Pattern Normal 05/25/18 16:00 Blood Pressure 134/84 05/25/18 07:40 Pulse Oximetry 94 L 05/25/18 07:40 Oxygen Delivery Method Room Air 05/25/18 07:40 Oxygen Flow Rate 0 05/25/18 07:40 Pain Level 1 05/25/18 05:42 Comment 05/22/18 01:25 Intake & Output 05/24/18 05/25/18 05/25/18 23:59 11:59 23:59 Intake Total 1755.834 / 3275.834 450 / 750 300 / 750 Output Total 950 / 2700 800 / 800 Balance 805.834 / 575.834 -350 / -50 300 / -50 Weight 59.8 kg Intake: IV 1095.834 / 2015.834 Oral 660 / 1260 450 / 750 300 / 750 Output: Urine 950 / 2700 800 / 800 Other: Urine Color Pale Pale Yellow Urine Appearance Clear Clear Urine Odor Strong Normal Comment reports voiding w/o difficuly Voiding Methods Toilet Toilet Labs on day of discharge: Labs from last 24 hours 05/25/18 05/25/18 10:50 10:50 WBC 4.93 RBC 3.53 L Hgb 11.3 L Hct 33.6 L MCV 95.2 H MCH 32.0 MCHC 33.6 RDW 12.7 Plt Count 181 MPV 8.5 Immature Gran % 1.0 Neutrophils % 56.0 Lymphocytes % 28.0 Monocytes % 8.3 Eosinophils % 6.5 Basophils % 0.2 Absolute Neutrophils 2.76 Absolute Lymphocytes 1.38 Absolute Monocytes 0.41 Absolute Eosinophils 0.32 Absolute Basophils 0.01 Sodium 139 Potassium 4.5 Chloride 102 Carbon Dioxide 29.6 Anion Gap 7.4 BUN 19 H Creatinine 1.49 H Estimated GFR/1.73 m2 34.80 Glucose 100 Calcium 8.7 [facility] Medical History Psoriasis (Chronic) Onychomycosis (Chronic) Malignant neoplasm of uterus (Inactive) Chronic hepatitis B (Chronic 12/29/16) Multiple myeloma in remission (Chronic) GERD (gastroesophageal reflux disease) (Chronic) chronic diffuse bony pain (Chronic) Port catheter in place (Chronic) Surgical History H/O breast biopsy (Resolved) History of cholecystectomy (Resolved) Biopsy of breast (05/11/16) Cholecystectomy Family History Mother No problems noted. Father No problems noted. Sister No problems noted. Sister No problems noted. Brother No problems noted. Brother No problems noted. Brother No problems noted. Brother No problems noted. Brother No problems noted. Son No problems noted. Social History highest education level completed: 3rd grade frequency: daily duration: 45-60 minutes/day Smoking and Tabacco status: Never alcohol intake: never substance use type: does not use shane/confucianism: Yarsani special shane needs: No
== END 2018-05-25 17:15 | disposition home or self-care (01) | DRG 866 ==
PROVIDERS: Internal Medicine; Nurse Practitioner; Admitting Provider Internal Medicine; PCP Family Medicine; Visit Provider Family Medicine
DX: B02.7 Disseminated zoster (principal); N17.9 Acute kidney failure, unspecified; C90.01 Multiple myeloma in remission; B18.1 Chronic viral hepatitis B without delta-agent; B02.21 Postherpetic geniculate ganglionitis; B02.29 Other postherpetic nervous system involvement; T37.5X5A Adverse effect of antiviral drugs, initial encounter; K21.9 Gastro-esophageal reflux disease without esophagitis; R60.0 Localized edema; R11.0 Nausea; R19.7 Diarrhea, unspecified
CPT/HCPCS: 36415; 80048; 80076; 82550; 85027; 99223; 99232; 99239; J1650; 83630; 83735; 85025; 99222; J0133; J3490; J7512

== ENCOUNTER 2018-07-03 13:37 | Outpatient (CLI) | payer MEDICARE, BC, SELFPAY ==
[2018-07-03 14:17] LABS: Abs Immature Grans 0.02 k/cumm (0.0-0.09); Absolute Basophil Count 0.02 k/cumm (0.0-0.2); Absolute Eosinophil Count 0.46 k/cumm (0.0-0.7); Absolute Lymphocyte Count 1.57 k/cumm (1.2-3.4); Absolute Monocyte Count 0.31 k/cumm (0.11-0.7); Basophils % 0.5; Eosinophils % 10.7; HCT 32.4 % (36.0-46.0); HGB 11.3 g/dL (12.0-15.5); Immature Grans % 0.5; Lymphocytes % 36.7; Mean Corp. HGB Concentration 34.9 g/dL (32.0-36.0); Mean Corpuscular Hemoglobin 33.6 pg (27.0-33.0); Mean Corpuscular Volume 96.4 fL (80-95); Mean Platelet Volume 9.1 fL (8.0-11.0); Monocytes % 7.2; Neutrophils % 44.4; Platelet Count 177 x1000/uL (130-400); RBC 3.36 m/cumm (4.00-5.20); RBC Distribution Width 13.6 % (11.7-14.6); White Blood Cell Count 4.28 k/cumm (4.4-10.8)
[2018-07-03 15:22] LABS: ALT 19 U/L (12-78); AST 21 U/L (15-37); Albumin 3.7 g/dL (3.4-5.0); Alkaline Phosphatase 72 U/L (46-116); Anion Gap 8.7 mmol/L (3-11); BUN 15 mg/dL (7-18); Bilirubin, Total 0.3 mg/dL (0.2-1.0); CO2 28.3 mmol/L (21.0-32.0); CREATININE 0.83 mg/dL (0.55-1.02); Calcium 8.7 mg/dL (8.5-10.1); Chloride 98 mmol/L (98-107); Glucose 94 mg/dL (70-100); Potassium 4.4 mmol/L (3.5-5.1); Sodium 135 mmol/L (136-145); Total Protein 7.5 g/dL (6.4-8.2)
[2018-07-04 11:41] LABS: IgA 255 mg/dL (85-499); IgG 1529 mg/dL (610-1616); IgM 117 mg/dL (35-242); Kappa Free Light Chain 1.96 mg/dl (0.33-1.94); Lambda Free Light Chain 1.48 mg/dl (0.57-2.63)
[2018-07-04 13:45] LABS: Albumin 55.8 % (55.8-66.1); Comment SEE COMMENTS; Monoclonal Spike 6.3 %; Total Protein 7.5 g/dl (6.3-8.2)
== END 2018-07-03 13:57 ==
PROVIDERS: PCP Family Medicine; Visit Provider Internal Medicine Hematology & Oncology
DX: C90.00 Multiple myeloma not having achieved remission (principal)
CPT/HCPCS: 36415; 80053; 82784; 83883; 84165; 85025; 86320

== ENCOUNTER 2018-08-10 13:12 | Outpatient (CLI) | payer MEDICARE, BC, SELFPAY ==
[2018-08-10 13:33] LABS: Abs Immature Grans 0.01 k/cumm (0.0-0.09); Absolute Basophil Count 0.01 k/cumm (0.0-0.2); Absolute Eosinophil Count 0.28 k/cumm (0.0-0.7); Absolute Lymphocyte Count 1.63 k/cumm (1.2-3.4); Absolute Monocyte Count 0.24 k/cumm (0.11-0.7); Basophils % 0.2; Eosinophils % 6.9; HCT 35.3 % (36.0-46.0); HGB 12.3 g/dL (12.0-15.5); Immature Grans % 0.2; Lymphocytes % 40.3; Mean Corp. HGB Concentration 34.8 g/dL (32.0-36.0); Mean Corpuscular Hemoglobin 33.6 pg (27.0-33.0); Mean Corpuscular Volume 96.4 fL (80-95); Mean Platelet Volume 8.9 fL (8.0-11.0); Monocytes % 5.9; Neutrophils % 46.5; Platelet Count 191 x1000/uL (130-400); RBC 3.66 m/cumm (4.00-5.20); RBC Distribution Width 12.1 % (11.7-14.6); White Blood Cell Count 4.04 k/cumm (4.4-10.8)
[2018-08-10 13:34] LABS: Absolute Neutrophil Count 1.88 k/cumm (1.2-6.7)
[2018-08-10 13:47] LABS: ALT 27 U/L (12-78); AST 21 U/L (15-37); Albumin 3.6 g/dL (3.4-5.0); Alkaline Phosphatase 75 U/L (46-116); Anion Gap 6.6 mmol/L (3-11); BUN 14 mg/dL (7-18); Bilirubin, Total 0.4 mg/dL (0.2-1.0); CO2 28.4 mmol/L (21.0-32.0); CREATININE 0.77 mg/dL (0.55-1.02); Chloride 100 mmol/L (98-107); Glucose 97 mg/dL (70-100); Potassium 4.3 mmol/L (3.5-5.1); Sodium 135 mmol/L (136-145); Total Protein 8.2 g/dL (6.4-8.2)
== END 2018-08-10 13:32 ==
PROVIDERS: PCP Family Medicine; Visit Provider Internal Medicine Hematology & Oncology
DX: C90.00 Multiple myeloma not having achieved remission (principal)
CPT/HCPCS: 36415; 80053; 85025

== ENCOUNTER 2018-08-23 14:02 | Outpatient (CLI) | payer MEDICARE, BC, SELFPAY ==
[2018-08-23 14:26] LABS: Absolute Basophil Count 0.01 k/cumm (0.0-0.2); Absolute Eosinophil Count 0.38 k/cumm (0.0-0.7); Absolute Lymphocyte Count 1.49 k/cumm (1.2-3.4); Absolute Monocyte Count 0.27 k/cumm (0.11-0.7); Absolute Neutrophil Count 1.68 k/cumm (1.2-6.7); Basophils % 0.3; Eosinophils % 9.9; HCT 35.9 % (36.0-46.0); HGB 12.2 g/dL (12.0-15.5); Lymphocytes % 38.9; Neutrophils % 43.9; Platelet Count 167 x1000/uL (130-400); RBC Distribution Width 11.8 % (11.7-14.6); White Blood Cell Count 3.83 k/cumm (4.4-10.8)
[2018-08-23 15:26] LABS: ALT 22 U/L (12-78); AST 22 U/L (15-37); Albumin 3.7 g/dL (3.4-5.0); Alkaline Phosphatase 69 U/L (46-116); Anion Gap 6.6 mmol/L (3-11); BUN 13 mg/dL (7-18); Bilirubin, Total 0.3 mg/dL (0.2-1.0); CO2 29.4 mmol/L (21.0-32.0); CREATININE 0.81 mg/dL (0.55-1.02); Calcium 8.8 mg/dL (8.5-10.1); Chloride 100 mmol/L (98-107); Glucose 88 mg/dL (70-100); Potassium 4.5 mmol/L (3.5-5.1); Sodium 136 mmol/L (136-145); Total Protein 7.5 g/dL (6.4-8.2)
[2018-08-24 09:44] LABS: IgA 264 mg/dL (85-499); IgG 1590 mg/dL (610-1616); IgM 125 mg/dL (35-242); Kappa Free Light Chain 1.58 mg/dl (0.33-1.94); Lambda Free Light Chain 1.18 mg/dl (0.57-2.63)
[2018-08-24 15:44] LABS: Albumin 56.7 % (55.8-66.1); Monoclonal Spike 6.2 %; Total Protein 7.6 g/dl (6.3-8.2)
== END 2018-08-23 14:22 ==
PROVIDERS: PCP Family Medicine; Visit Provider Internal Medicine Hematology & Oncology
DX: C90.00 Multiple myeloma not having achieved remission (principal)
CPT/HCPCS: 36415; 80053; 82784; 83883; 84165; 85025

== ENCOUNTER 2018-09-27 08:17 | Outpatient (CLI) | payer MEDICARE, BC, SELFPAY ==
[2018-09-27 08:41] LABS: Absolute Basophil Count 0.03 k/cumm (0.0-0.2); Absolute Eosinophil Count 0.34 k/cumm (0.0-0.7); Absolute Lymphocyte Count 1.47 k/cumm (1.2-3.4); Absolute Monocyte Count 0.41 k/cumm (0.11-0.7); Absolute Neutrophil Count 1.53 k/cumm (1.2-6.7); Basophils % 0.8; HCT 36.6 % (36.0-46.0); HGB 12.4 g/dL (12.0-15.5); Lymphocytes % 38.9; Mean Corp. HGB Concentration 33.9 g/dL (32.0-36.0); Mean Corpuscular Hemoglobin 32.6 pg (27.0-33.0); Mean Corpuscular Volume 96.3 fL (80-95); Mean Platelet Volume 8.8 fL (8.0-11.0); Monocytes % 10.8; Neutrophils % 40.5; Platelet Count 183 x1000/uL (130-400); RBC Distribution Width 12.1 % (11.7-14.6); White Blood Cell Count 3.78 k/cumm (4.4-10.8)
[2018-09-27 09:03] LABS: ALT 24 U/L (12-78); AST 25 U/L (15-37); Albumin 3.5 g/dL (3.4-5.0); Alkaline Phosphatase 74 U/L (46-116); Anion Gap 8.2 mmol/L (3-11); BUN 12 mg/dL (7-18); Bilirubin, Total 0.5 mg/dL (0.2-1.0); CO2 27.8 mmol/L (21.0-32.0); Calcium 8.7 mg/dL (8.5-10.1); Chloride 104 mmol/L (98-107); Glucose 88 mg/dL (70-100); Potassium 3.8 mmol/L (3.5-5.1); Sodium 140 mmol/L (136-145); Total Protein 7.9 g/dL (6.4-8.2)
[2018-09-28 09:49] LABS: IgA 258 mg/dL (85-499); IgG 1553 mg/dL (610-1616); IgM 117 mg/dL (35-242); Kappa Free Light Chain 2.75 mg/dl (0.33-1.94); Lambda Free Light Chain 1.66 mg/dl (0.57-2.63)
[2018-09-29 14:26] LABS: Albumin 55.6 % (55.8-66.1); Monoclonal Spike 4.1 %; Total Protein 7.1 g/dl (6.3-8.2)
[2018-09-29 16:10] LABS: HBV DNA Detect/Quant, PCR Undetected IU/mL (Undetected)
== END 2018-09-27 08:37 ==
PROVIDERS: PCP Family Medicine; Visit Provider Internal Medicine Hematology & Oncology
DX: C90.00 Multiple myeloma not having achieved remission (principal)
CPT/HCPCS: 36415; 80053; 82784; 87517; 83883; 84165; 85025; 86320

== ENCOUNTER 2018-10-19 10:51 | Outpatient (REF) | payer MEDICARE, BC, SELFPAY ==
--- NOTE | 2018-10-19 10:30 | PAPFTD_PTH ---
PATIENT: Reyna Haskins LOC: [facility] U#:[id number] AGE/SX: 68/F ROOM: RE10/19/[address]: Lor Devlin MD : 1950 BED: DIS: 10/19/2018 SPEC #: [id number] RECD: 10/19/18 12:58 STATUS: SANIYA REQ #: [id number] ARACELI: 10/19/18 10:[address]: Lor Devlin DEPT: [facility] Cytology RECD BY: Yessenia Landry ENTERED: 10/19/18 12:59 SP TYPE: PAPFTD OTHR DR: Gianfranco Saha MD Tissues: 1 - CX/ENDOCX FOR PAP SMEARS Procedures: PAP THIN PREP/UVM Diagnostic Comments: (UNSATISFACTORY FOR EVALUATION) [id number]
== END 2018-10-19 11:11 ==
LOC: LBN 10:51
PROVIDERS: PCP Family Medicine; Visit Provider Obstetrics & Gynecology
DX: Z12.4 Encounter for screening for malignant neoplasm of cervix (principal)
CPT/HCPCS: 88175

== ENCOUNTER 2018-10-27 13:35 | Outpatient (CLI) | payer MEDICARE, BC, SELFPAY ==
[2018-10-27 14:17] LABS: Absolute Basophil Count 0.01 k/cumm (0.0-0.2); Absolute Eosinophil Count 0.21 k/cumm (0.0-0.7); Absolute Monocyte Count 0.28 k/cumm (0.11-0.7); Absolute Neutrophil Count 1.67 k/cumm (1.2-6.7); Basophils % 0.3; Eosinophils % 6.1; HCT 35.9 % (36.0-46.0); HGB 12.3 g/dL (12.0-15.5); Lymphocytes % 37.5; Mean Corp. HGB Concentration 34.3 g/dL (32.0-36.0); Mean Corpuscular Hemoglobin 32.6 pg (27.0-33.0); Mean Corpuscular Volume 95.2 fL (80-95); Mean Platelet Volume 9.4 fL (8.0-11.0); Monocytes % 8.1; Platelet Count 194 x1000/uL (130-400); RBC 3.77 m/cumm (4.00-5.20); RBC Distribution Width 12.1 % (11.7-14.6); White Blood Cell Count 3.47 k/cumm (4.4-10.8)
[2018-10-27 14:47] LABS: ALT 29 U/L (12-78); AST 33 U/L (15-37); Albumin 3.4 g/dL (3.4-5.0); Alkaline Phosphatase 58 U/L (46-116); Anion Gap 8.7 mmol/L (3-11); BUN 15 mg/dL (7-18); Bilirubin, Total 0.3 mg/dL (0.2-1.0); CO2 27.3 mmol/L (21.0-32.0); CREATININE 0.67 mg/dL (0.55-1.02); Calcium 8.6 mg/dL (8.5-10.1); Chloride 101 mmol/L (98-107); Glucose 87 mg/dL (70-100); Potassium 3.9 mmol/L (3.5-5.1); Sodium 137 mmol/L (136-145); Total Protein 7.6 g/dL (6.4-8.2)
[2018-10-30 10:01] LABS: IgA 295 mg/dL (85-499); IgG 1526 mg/dL (610-1616); IgM 96 mg/dL (35-242); Kappa Free Light Chain 2.79 mg/dl (0.33-1.94); Lambda Free Light Chain 1.83 mg/dl (0.57-2.63)
[2018-10-30 13:19] LABS: Albumin 54.1 % (55.8-66.1); Total Protein 6.8 g/dl (6.3-8.2)
== END 2018-10-27 13:55 ==
PROVIDERS: PCP Family Medicine; Visit Provider Internal Medicine Hematology & Oncology
DX: C90.00 Multiple myeloma not having achieved remission (principal)
CPT/HCPCS: 36415; 80053; 82784; 83883; 84165; 85025; 86320

== ENCOUNTER 2018-11-24 14:26 | Outpatient (CLI) | payer MEDICARE, BC, SELFPAY ==
[2018-11-24 15:03] LABS: Abs Immature Grans 0.01 k/cumm (0.0-0.09); HCT 35.3 % (36.0-46.0); HGB 12.1 g/dL (12.0-15.5); Mean Corp. HGB Concentration 34.3 g/dL (32.0-36.0); Mean Corpuscular Hemoglobin 32.6 pg (27.0-33.0); Mean Corpuscular Volume 95.1 fL (80-95); Mean Platelet Volume 9.4 fL (8.0-11.0); Platelet Count 187 x1000/uL (130-400); RBC 3.71 m/cumm (4.00-5.20); RBC Distribution Width 12.3 % (11.7-14.6); White Blood Cell Count 3.16 k/cumm (4.4-10.8)
[2018-11-24 15:12] LABS: ALT 28 U/L (14-59); AST 23 U/L (15-37); Albumin 3.2 g/dL (3.4-5.0); Alkaline Phosphatase 72 U/L (46-116); Anion Gap 7.1 mmol/L (3-11); BUN 12 mg/dL (7-18); Bilirubin, Total 0.3 mg/dL (0.2-1.0); CO2 27.9 mmol/L (21.0-32.0); Calcium 8.1 mg/dL (8.5-10.1); Chloride 104 mmol/L (98-107); Glucose 88 mg/dL (70-100); Sodium 139 mmol/L (136-145); Total Protein 7.3 g/dL (6.4-8.2)
[2018-11-24 15:44] LABS: Absolute Eosinophil Count 0.13 k/cumm (0.0-0.7); Absolute Lymphocyte Count 1.36 k/cumm (1.2-3.4); Absolute Monocyte Count 0.25 k/cumm (0.11-0.7); Absolute Neutrophil Count 1.42 k/cumm (1.2-6.7)
[2018-11-24 15:45] LABS: Diff Comment Manual Differential; RBC Morphology Normal
[2018-11-27 11:12] LABS: Kappa Free Light Chain 2.64 mg/dl (0.33-1.94)
[2018-11-27 12:59] LABS: Albumin 55.4 % (55.8-66.1); Total Protein 6.9 g/dl (6.3-8.2)
== END 2018-11-24 14:46 ==
PROVIDERS: PCP Family Medicine; Visit Provider Internal Medicine Hematology & Oncology
DX: C90.00 Multiple myeloma not having achieved remission (principal)
CPT/HCPCS: 36415; 80053; 83883; 84165; 85025

== ENCOUNTER 2018-12-20 12:53 | Outpatient (CLI) | payer MEDICARE, BC, SELFPAY ==
[2018-12-20 13:26] LABS: HCT 37.3 % (36.0-46.0); HGB 12.8 g/dL (12.0-15.5); Mean Corp. HGB Concentration 34.3 g/dL (32.0-36.0); Mean Corpuscular Hemoglobin 31.6 pg (27.0-33.0); Mean Corpuscular Volume 92.1 fL (80-95); RBC 4.05 m/cumm (4.00-5.20)
[2018-12-20 13:27] LABS: Mean Platelet Volume 9.1 fL (8.0-11.0); Platelet Count 209 x1000/uL (130-400); RBC Distribution Width 12.9 % (11.7-14.6)
[2018-12-20 13:35] LABS: ALT 38 U/L (14-59); AST 29 U/L (15-37); Albumin 3.3 g/dL (3.4-5.0); Alkaline Phosphatase 79 U/L (46-116); Anion Gap 7.2 mmol/L (3-11); BUN 10 mg/dL (7-18); Bilirubin, Total 0.4 mg/dL (0.2-1.0); CO2 28.8 mmol/L (21.0-32.0); CREATININE 0.75 mg/dL (0.55-1.02); Calcium 8.5 mg/dL (8.5-10.1); Chloride 101 mmol/L (98-107); Glucose 93 mg/dL (70-100); Sodium 137 mmol/L (136-145); Total Protein 7.9 g/dL (6.4-8.2)
[2018-12-20 13:42] LABS: Absolute Basophil Count 0.03 k/cumm (0.0-0.2); Absolute Eosinophil Count 0.33 k/cumm (0.0-0.7); Absolute Lymphocyte Count 1.08 k/cumm (1.2-3.4); Absolute Monocyte Count 0.27 k/cumm (0.11-0.7); Absolute Neutrophil Count 1.29 k/cumm (1.2-6.7); Atypical Lymphocytes % 1; Diff Comment Manual Differential
[2018-12-20 13:43] LABS: Polychromasia Present
[2018-12-21 11:41] LABS: IgA 346 mg/dL (85-499); IgG 1620 mg/dL (610-1616); IgM 87 mg/dL (35-242); Kappa Free Light Chain 3.47 mg/dl (0.33-1.94); Lambda Free Light Chain 2.43 mg/dl (0.57-2.63)
[2018-12-21 15:12] LABS: Albumin 53.1 % (55.8-66.1); Comment SEE COMMENTS; Total Protein 7.5 g/dl (6.3-8.2)
[2018-12-23 15:41] LABS: HBV DNA Detect/Quant, PCR Undetected IU/mL (Undetected)
== END 2018-12-20 13:13 ==
PROVIDERS: PCP Family Medicine; Visit Provider Internal Medicine Hematology & Oncology
DX: C90.00 Multiple myeloma not having achieved remission (principal)
CPT/HCPCS: 36415; 80053; 82784; 87517; 83883; 84165; 85025; 86320

== ENCOUNTER 2019-01-17 13:52 | Outpatient (CLI) | payer MEDICARE, BC, SELFPAY ==
[2019-01-17 14:16] LABS: Abs Immature Grans 0.01 k/cumm (0.0-0.09); Absolute Basophil Count 0.01 k/cumm (0.0-0.2); Absolute Eosinophil Count 0.49 k/cumm (0.0-0.7); Absolute Lymphocyte Count 1.37 k/cumm (1.2-3.4); Absolute Monocyte Count 0.29 k/cumm (0.11-0.7); Absolute Neutrophil Count 0.89 k/cumm (1.2-6.7); Basophils % 0.3; HCT 33.4 % (36.0-46.0); HGB 11.4 g/dL (12.0-15.5); Immature Grans % 0.3; Lymphocytes % 44.8; Mean Corp. HGB Concentration 34.1 g/dL (32.0-36.0); Mean Corpuscular Hemoglobin 32.5 pg (27.0-33.0); Mean Corpuscular Volume 95.2 fL (80-95); Mean Platelet Volume 8.9 fL (8.0-11.0); Monocytes % 9.5; Neutrophils % 29.1; Platelet Count 181 x1000/uL (130-400); RBC 3.51 m/cumm (4.00-5.20); RBC Distribution Width 13.2 % (11.7-14.6); White Blood Cell Count 3.06 k/cumm (4.4-10.8)
[2019-01-17 14:33] LABS: Diff Comment Agrees w/ Instrument; RBC Morphology Normal
[2019-01-17 14:45] LABS: ALT 22 U/L (14-59); AST 22 U/L (15-37); Albumin 3.2 g/dL (3.4-5.0); Alkaline Phosphatase 72 U/L (46-116); Anion Gap 6.4 mmol/L (3-11); BUN 9 mg/dL (7-18); Bilirubin, Total 0.3 mg/dL (0.2-1.0); CO2 30.6 mmol/L (21.0-32.0); CREATININE 0.87 mg/dL (0.55-1.02); Calcium 8.3 mg/dL (8.5-10.1); Chloride 102 mmol/L (98-107); Glucose 89 mg/dL (70-100); Potassium 3.7 mmol/L (3.5-5.1); Sodium 139 mmol/L (136-145); Total Protein 7.1 g/dL (6.4-8.2)
[2019-01-18 09:32] LABS: IgA 326 mg/dL (85-499); IgG 1708 mg/dL (610-1616); IgM 80 mg/dL (35-242); Kappa Free Light Chain 3.97 mg/dl (0.33-1.94); Lambda Free Light Chain 2.48 mg/dl (0.57-2.63)
[2019-01-18 13:45] LABS: Albumin 53.7 % (55.8-66.1); Total Protein 7.1 g/dl (6.3-8.2)
== END 2019-01-17 14:12 ==
PROVIDERS: PCP Family Medicine; Visit Provider Internal Medicine Hematology & Oncology
DX: C90.00 Multiple myeloma not having achieved remission (principal)
CPT/HCPCS: 36415; 80053; 82784; 83883; 84165; 85025

== ENCOUNTER 2019-02-14 13:12 | Outpatient (CLI) | payer MEDICARE, BC, SELFPAY ==
[2019-02-14 13:51] LABS: ALT 23 U/L (14-59); AST 23 U/L (15-37); Albumin 3.3 g/dL (3.4-5.0); Alkaline Phosphatase 66 U/L (46-116); Anion Gap 4.1 mmol/L (3-11); BUN 12 mg/dL (7-18); Bilirubin, Total 0.3 mg/dL (0.2-1.0); CO2 29.9 mmol/L (21.0-32.0); CREATININE 0.74 mg/dL (0.55-1.02); Calcium 8.4 mg/dL (8.5-10.1); Chloride 102 mmol/L (98-107); Glucose 98 mg/dL (70-100); Potassium 4.2 mmol/L (3.5-5.1); Sodium 136 mmol/L (136-145); Total Protein 7.8 g/dL (6.4-8.2)
[2019-02-14 13:57] LABS: Abs Immature Grans 0.01 k/cumm (0.0-0.09); Absolute Basophil Count 0.02 k/cumm (0.0-0.2); Absolute Eosinophil Count 0.43 k/cumm (0.0-0.7); Absolute Lymphocyte Count 1.21 k/cumm (1.2-3.4); Absolute Monocyte Count 0.25 k/cumm (0.11-0.7); Absolute Neutrophil Count 0.96 k/cumm (1.2-6.7); Basophils % 0.7; Eosinophils % 14.9; HGB 12.3 g/dL (12.0-15.5); Immature Grans % 0.3; Mean Corp. HGB Concentration 34.2 g/dL (32.0-36.0); Mean Corpuscular Hemoglobin 32.8 pg (27.0-33.0); Mean Platelet Volume 9.1 fL (8.0-11.0); Monocytes % 8.7; Neutrophils % 33.4; Platelet Count 187 x1000/uL (130-400); RBC 3.75 m/cumm (4.00-5.20); White Blood Cell Count 2.88 k/cumm (4.4-10.8)
[2019-02-14 14:25] LABS: Diff Comment Agrees w/ Instrument; RBC Morphology Normal
[2019-02-16 11:23] LABS: Lambda Free Light Chain 1.93 mg/dL (0.57-2.63)
[2019-02-16 14:42] LABS: IgA 345 mg/dL (85-499); IgG 1893 mg/dL (610-1,616); IgM 94 mg/dL (35-242)
[2019-02-16 15:16] LABS: Albumin 54.3 % (55.8-66.1); Total Protein 7.5 g/dL (6.3-8.2)
== END 2019-02-14 13:32 ==
PROVIDERS: PCP Family Medicine; Visit Provider Internal Medicine Hematology & Oncology
DX: C90.00 Multiple myeloma not having achieved remission (principal)
CPT/HCPCS: 36415; 80053; 82784; 83883; 84165; 85025

== ENCOUNTER 2019-02-19 13:07 | Outpatient (CLI) | payer MEDICARE, BC, SELFPAY ==
[2019-02-19 13:41] LABS: Abs Immature Grans 0.01 k/cumm (0.0-0.09); Absolute Basophil Count 0.04 k/cumm (0.0-0.2); Absolute Lymphocyte Count 1.43 k/cumm (1.2-3.4); Absolute Monocyte Count 0.23 k/cumm (0.11-0.7); Absolute Neutrophil Count 1.24 k/cumm (1.2-6.7); Basophils % 1.2; Eosinophils % 9.2; Immature Grans % 0.3; Mean Corp. HGB Concentration 34.3 g/dL (32.0-36.0); Mean Corpuscular Volume 96.2 fL (80-95); Mean Platelet Volume 8.6 fL (8.0-11.0); Monocytes % 7.1; Neutrophils % 38.2; Platelet Count 195 x1000/uL (130-400); RBC 3.64 m/cumm (4.00-5.20); RBC Distribution Width 12.9 % (11.7-14.6); White Blood Cell Count 3.25 k/cumm (4.4-10.8)
== END 2019-02-19 13:27 ==
PROVIDERS: PCP Family Medicine; Visit Provider Internal Medicine Hematology & Oncology
DX: C90.00 Multiple myeloma not having achieved remission (principal)
CPT/HCPCS: 36415; 85025

== ENCOUNTER 2019-03-19 13:36 | Outpatient (CLI) | payer MEDICARE, BC, SELFPAY ==
[2019-03-19 14:06] LABS: Absolute Basophil Count 0.02 k/cumm (0.0-0.2); Absolute Eosinophil Count 0.24 k/cumm (0.0-0.7); Absolute Lymphocyte Count 1.57 k/cumm (1.2-3.4); Absolute Monocyte Count 0.25 k/cumm (0.11-0.7); Absolute Neutrophil Count 1.14 k/cumm (1.2-6.7); Basophils % 0.6; Eosinophils % 7.5; HCT 36.7 % (36.0-46.0); HGB 12.7 g/dL (12.0-15.5); Lymphocytes % 48.8; Mean Corp. HGB Concentration 34.6 g/dL (32.0-36.0); Mean Corpuscular Hemoglobin 33.1 pg (27.0-33.0); Mean Corpuscular Volume 95.6 fL (80-95); Mean Platelet Volume 8.6 fL (8.0-11.0); Monocytes % 7.8; Neutrophils % 35.3; Platelet Count 175 x1000/uL (130-400); RBC 3.84 m/cumm (4.00-5.20); RBC Distribution Width 12.3 % (11.7-14.6); White Blood Cell Count 3.22 k/cumm (4.4-10.8)
[2019-03-19 15:02] LABS: ALT 22 U/L (14-59); AST 22 U/L (15-37); Albumin 3.6 g/dL (3.4-5.0); Alkaline Phosphatase 69 U/L (46-116); Anion Gap 7.1 mmol/L (3-11); BUN 13 mg/dL (7-18); Bilirubin, Total 0.4 mg/dL (0.2-1.0); CO2 28.9 mmol/L (21.0-32.0); CREATININE 0.74 mg/dL (0.55-1.02); Calcium 8.5 mg/dL (8.5-10.1); Chloride 102 mmol/L (98-107); Glucose 87 mg/dL (74-106); Potassium 4.3 mmol/L (3.5-5.1); Sodium 138 mmol/L (136-145); Total Protein 7.7 g/dL (6.4-8.2)
[2019-03-20 12:00] LABS: IgA 341 mg/dL (85-499); IgG 1984 mg/dL (610-1,616); IgM 89 mg/dL (35-242); Kappa Free Light Chain 2.64 mg/dL (0.33-1.94); Lambda Free Light Chain 1.81 mg/dL (0.57-2.63)
[2019-03-21 16:10] LABS: Albumin 54.5 % (55.8-66.1); Total Protein 7.9 g/dL (6.3-8.2)
== END 2019-03-19 13:56 ==
PROVIDERS: PCP Family Medicine; Visit Provider Internal Medicine Hematology & Oncology
DX: C90.00 Multiple myeloma not having achieved remission (principal)
CPT/HCPCS: 36415; 80053; 82784; 83883; 84165; 85025

== ENCOUNTER 2019-03-27 02:54 | Outpatient (CLI) | payer MEDICARE, BC, SELFPAY ==
--- NOTE | 2019-03-27 11:43 | DI.MAMMO_ITS ---
EXAM: MG MAMMO SCREENING CLINICAL HISTORY: screening, Z12.31 TECHNIQUE: Bilateral full field digital CC and MLO mammographic images were obtained with 3D tomosyn thesis and utilizing computer aided detection (CAD). COMPARISON: Available for comparison. FINDINGS: Masses/Architectural Distortion: None seen. Microcalcifications: No suspicious pleomorphic-type are seen. Skin Thickening/Nipple Retraction: None. IMPRESSION: 1. No significant interval change with no specific features of malignancy noted. 2. Unless there is more urgent need, screening mammography is recommended, as per [employer] guidelines. ACR BI-RAD Category- 1 Negative Breast Density - Category C - Heterogeneously dense The mammogram demonstrates the patient's breast tissue is dense. Dense breast tissue is very common a nd is not abnormal but dense breast tissue can make it harder to find cancer on a mammogram. Also, de nse breast tissue may increase their breast cancer risk. This information about the result of the [facility] mogram report was provided to the patient to raise their awareness. Use this report when you speak wi th the patient about their risks for breast cancer, which includes their family history. At that time , you may recommend for more screening tests (Ultrasound or MRI) as they might be useful based on the ir risk. A negative radiographic report should not delay biopsy if a dominant or clinically suspicious mass is present. Up to ten percent of cancers are not identified on mammography. A negative report may reinforce clinical impression. Adenosis and dense breasts may obscure an underlying neoplasm. False positive reports average 6 to 10%. Patient will receive a letter notifying them of these results.
== END 2019-03-27 03:14 ==
PROVIDERS: PCP Family Medicine; Visit Provider Family Medicine
DX: Z12.31 Encounter for screening mammogram for malignant neoplasm of breast (principal)
CPT/HCPCS: 77063; 77067

== ENCOUNTER 2019-04-16 13:38 | Outpatient (CLI) | payer MEDICARE, BC, SELFPAY ==
[2019-04-16 14:29] LABS: Absolute Basophil Count 0.03 k/cumm (0.0-0.2); Absolute Eosinophil Count 0.13 k/cumm (0.0-0.7); Absolute Lymphocyte Count 1.26 k/cumm (1.2-3.4); Absolute Monocyte Count 0.25 k/cumm (0.11-0.7); Absolute Neutrophil Count 1.45 k/cumm (1.2-6.7); Eosinophils % 4.2; HCT 38.2 % (36.0-46.0); HGB 13.2 g/dL (12.0-15.5); Lymphocytes % 40.4; Mean Corp. HGB Concentration 34.6 g/dL (32.0-36.0); Mean Corpuscular Volume 95.5 fL (80-95); Mean Platelet Volume 8.7 fL (8.0-11.0); Neutrophils % 46.4; Platelet Count 207 x1000/uL (130-400); RBC Distribution Width 12.3 % (11.7-14.6); White Blood Cell Count 3.12 k/cumm (4.4-10.8)
[2019-04-16 14:44] LABS: ALT 20 U/L (14-59); AST 23 U/L (15-37); Albumin 3.7 g/dL (3.4-5.0); Alkaline Phosphatase 77 U/L (46-116); Anion Gap 7.7 mmol/L (3-11); BUN 18 mg/dL (7-18); Bilirubin, Total 0.3 mg/dL (0.2-1.0); CO2 28.3 mmol/L (21.0-32.0); CREATININE 0.69 mg/dL (0.55-1.02); Calcium 8.9 mg/dL (8.5-10.1); Chloride 99 mmol/L (98-107); Glucose 94 mg/dL (74-106); Potassium 4.1 mmol/L (3.5-5.1); Sodium 135 mmol/L (136-145); Total Protein 8.3 g/dL (6.4-8.2)
[2019-04-17 11:42] LABS: IgA 372 mg/dL (85-499); IgG 2097 mg/dL (610-1,616); IgM 89 mg/dL (35-242); Kappa Free Light Chain 2.65 mg/dL (0.33-1.94); Lambda Free Light Chain 2.13 mg/dL (0.57-2.63)
[2019-04-17 15:24] LABS: Albumin 54.4 % (55.8-66.1); Total Protein 8.6 g/dL (6.3-8.2)
== END 2019-04-16 13:58 ==
PROVIDERS: PCP Family Medicine; Visit Provider Internal Medicine Hematology & Oncology
DX: C90.00 Multiple myeloma not having achieved remission (principal)
CPT/HCPCS: 36415; 80053; 82784; 83883; 84165; 85025

== ENCOUNTER 2019-05-14 13:15 | Outpatient (CLI) | payer MEDICARE, BC, SELFPAY ==
[2019-05-14 14:03] LABS: Absolute Basophil Count 0.02 k/cumm (0.0-0.2); Absolute Eosinophil Count 0.17 k/cumm (0.0-0.7); Absolute Lymphocyte Count 1.43 k/cumm (1.2-3.4); Absolute Monocyte Count 0.24 k/cumm (0.11-0.7); Absolute Neutrophil Count 1.15 k/cumm (1.2-6.7); Basophils % 0.7; Eosinophils % 5.6; HCT 34.2 % (36.0-46.0); HGB 11.6 g/dL (12.0-15.5); Lymphocytes % 47.5; Mean Corp. HGB Concentration 33.9 g/dL (32.0-36.0); Mean Corpuscular Hemoglobin 32.7 pg (27.0-33.0); Mean Corpuscular Volume 96.3 fL (80-95); Mean Platelet Volume 8.5 fL (8.0-11.0); Neutrophils % 38.2; Platelet Count 200 x1000/uL (130-400); RBC 3.55 m/cumm (4.00-5.20); RBC Distribution Width 12.7 % (11.7-14.6); White Blood Cell Count 3.01 k/cumm (4.4-10.8)
[2019-05-14 14:06] LABS: ALT 21 U/L (14-59); AST 22 U/L (15-37); Albumin 3.1 g/dL (3.4-5.0); Alkaline Phosphatase 72 U/L (46-116); Anion Gap 4.1 mmol/L (3-11); BUN 10 mg/dL (7-18); Bilirubin, Total 0.3 mg/dL (0.2-1.0); CO2 28.9 mmol/L (21.0-32.0); CREATININE 0.74 mg/dL (0.55-1.02); Calcium 7.8 mg/dL (8.5-10.1); Chloride 101 mmol/L (98-107); Glucose 102 mg/dL (74-106); Potassium 4.1 mmol/L (3.5-5.1); Sodium 134 mmol/L (136-145); Total Protein 7.2 g/dL (6.4-8.2)
[2019-05-15 10:42] LABS: IgA 299 mg/dL (85-499); IgG 1532 mg/dL (610-1,616); IgM 77 mg/dL (35-242); Kappa Free Light Chain 2.38 mg/dL (0.33-1.94); Lambda Free Light Chain 1.52 mg/dL (0.57-2.63)
[2019-05-15 13:16] LABS: Albumin 52.4 % (55.8-66.1); Total Protein 6.9 g/dL (6.3-8.2)
== END 2019-05-14 13:35 ==
PROVIDERS: PCP Family Medicine; Visit Provider Internal Medicine Hematology & Oncology
DX: C90.00 Multiple myeloma not having achieved remission (principal)
CPT/HCPCS: 36415; 80053; 82784; 83883; 84165; 85025

== ENCOUNTER 2019-06-11 13:18 | Outpatient (CLI) | payer MEDICARE, BC, SELFPAY ==
[2019-06-11 14:38] LABS: Abs Immature Grans 0.01 k/cumm (0.0-0.09); Absolute Basophil Count 0.02 k/cumm (0.0-0.2); Absolute Eosinophil Count 0.18 k/cumm (0.0-0.7); Absolute Lymphocyte Count 1.18 k/cumm (1.2-3.4); Absolute Monocyte Count 0.21 k/cumm (0.11-0.7); Absolute Neutrophil Count 1.26 k/cumm (1.2-6.7); Basophils % 0.7; Eosinophils % 6.3; HCT 36.1 % (36.0-46.0); HGB 12.3 g/dL (12.0-15.5); Immature Grans % 0.3 %; Lymphocytes % 41.3; Mean Corp. HGB Concentration 34.1 g/dL (32.0-36.0); Mean Corpuscular Hemoglobin 33.3 pg (27.0-33.0); Mean Corpuscular Volume 97.8 fL (80-95); Mean Platelet Volume 9.1 fL (8.0-11.0); Monocytes % 7.3; Neutrophils % 44.1; Platelet Count 204 x1000/uL (130-400); RBC 3.69 m/cumm (4.00-5.20); White Blood Cell Count 2.86 k/cumm (4.4-10.8)
[2019-06-11 14:55] LABS: ALT 25 U/L (14-59); AST 26 U/L (15-37); Albumin 3.6 g/dL (3.4-5.0); Alkaline Phosphatase 74 U/L (46-116); Anion Gap 7.4 mmol/L (3-11); BUN 13 mg/dL (7-18); Bilirubin, Total 0.4 mg/dL (0.2-1.0); CO2 29.6 mmol/L (21.0-32.0); CREATININE 0.65 mg/dL (0.55-1.02); Calcium 8.7 mg/dL (8.5-10.1); Chloride 101 mmol/L (98-107); Glucose 84 mg/dL (74-106); Potassium 4.1 mmol/L (3.5-5.1); Sodium 138 mmol/L (136-145); Total Protein 7.7 g/dL (6.4-8.2)
[2019-06-12 10:25] LABS: IgA 347 mg/dL (85-499); IgG 1861 mg/dL (610-1,616); IgM 74 mg/dL (35-242); Kappa Free Light Chain 2.78 mg/dL (0.33-1.94)
[2019-06-12 15:27] LABS: Albumin 53.8 % (55.8-66.1); Total Protein 7.6 g/dL (6.3-8.2)
== END 2019-06-11 13:38 ==
PROVIDERS: PCP Family Medicine; Visit Provider Internal Medicine Hematology & Oncology
DX: C90.00 Multiple myeloma not having achieved remission (principal)
CPT/HCPCS: 36415; 80053; 82784; 83883; 84165; 85025

== ENCOUNTER 2019-07-09 02:18 | Outpatient (CLI) | payer MEDICARE, BC, SELFPAY ==
[2019-07-09 13:24] LABS: Absolute Basophil Count 0.02 k/cumm (0.0-0.2); Absolute Eosinophil Count 0.19 k/cumm (0.0-0.7); Absolute Lymphocyte Count 1.61 k/cumm (1.2-3.4); Absolute Monocyte Count 0.26 k/cumm (0.11-0.7); Absolute Neutrophil Count 1.62 k/cumm (1.2-6.7); Basophils % 0.5; Eosinophils % 5.1; HGB 12.4 g/dL (12.0-15.5); Lymphocytes % 43.6; Mean Corp. HGB Concentration 35.4 g/dL (32.0-36.0); Mean Corpuscular Hemoglobin 34.1 pg (27.0-33.0); Mean Corpuscular Volume 96.2 fL (80-95); Mean Platelet Volume 8.1 fL (8.0-11.0); Neutrophils % 43.8; Platelet Count 182 x1000/uL (130-400); RBC 3.64 m/cumm (4.00-5.20); RBC Distribution Width 12.4 % (11.7-14.6); White Blood Cell Count 3.69 k/cumm (4.4-10.8)
[2019-07-09 14:21] LABS: ALT 28 U/L (14-59); AST 25 U/L (15-37); Albumin 3.5 g/dL (3.4-5.0); Alkaline Phosphatase 65 U/L (46-116); Anion Gap 5.2 mmol/L (3-11); BUN 9 mg/dL (7-18); Bilirubin, Total 0.4 mg/dL (0.2-1.0); CO2 29.8 mmol/L (21.0-32.0); CREATININE 0.75 mg/dL (0.55-1.02); Calcium 8.5 mg/dL (8.5-10.1); Chloride 101 mmol/L (98-107); Glucose 83 mg/dL (74-106); Potassium 4.4 mmol/L (3.5-5.1); Sodium 136 mmol/L (136-145); Total Protein 7.6 g/dL (6.4-8.2)
[2019-07-10 09:56] LABS: IgA 320 mg/dL (85-499); IgG 1761 mg/dL (610-1,616); IgM 83 mg/dL (35-242); Kappa Free Light Chain 2.63 mg/dL (0.33-1.94); Lambda Free Light Chain 1.59 mg/dL (0.57-2.63)
[2019-07-11 15:46] LABS: Albumin 53.2 % (55.8-66.1); Total Protein 7.8 g/dL (6.3-8.2)
== END 2019-07-09 02:38 ==
PROVIDERS: PCP Family Medicine; Visit Provider Internal Medicine Hematology & Oncology
DX: C90.00 Multiple myeloma not having achieved remission (principal)
CPT/HCPCS: 36415; 80053; 82784; 83883; 84165; 85025

== ENCOUNTER 2019-08-06 03:22 | Outpatient (CLI) | payer MEDICARE, BC, SELFPAY ==
[2019-08-06 13:15] LABS: Absolute Basophil Count 0.01 k/cumm (0.0-0.2); Absolute Eosinophil Count 0.13 k/cumm (0.0-0.7); Absolute Lymphocyte Count 1.16 k/cumm (1.2-3.4); Absolute Monocyte Count 0.21 k/cumm (0.11-0.7); Basophils % 0.3; Eosinophils % 4.5; HCT 35.9 % (36.0-46.0); HGB 12.4 g/dL (12.0-15.5); Lymphocytes % 39.9; Mean Corp. HGB Concentration 34.5 g/dL (32.0-36.0); Mean Corpuscular Hemoglobin 33.3 pg (27.0-33.0); Mean Corpuscular Volume 96.5 fL (80-95); Mean Platelet Volume 8.6 fL (8.0-11.0); Monocytes % 7.2; Neutrophils % 48.1; Platelet Count 197 x1000/uL (130-400); RBC 3.72 m/cumm (4.00-5.20); RBC Distribution Width 12.2 % (11.7-14.6); White Blood Cell Count 2.91 k/cumm (4.4-10.8)
[2019-08-06 14:06] LABS: ALT 62 U/L (14-59); AST 28 U/L (15-37); Albumin 3.5 g/dL (3.4-5.0); Alkaline Phosphatase 91 U/L (46-116); Anion Gap 4.3 mmol/L (3-11); BUN 11 mg/dL (7-18); Bilirubin, Total 0.4 mg/dL (0.2-1.0); CO2 29.7 mmol/L (21.0-32.0); Calcium 8.6 mg/dL (8.5-10.1); Chloride 98 mmol/L (98-107); Glucose 95 mg/dL (74-106); Potassium 4.5 mmol/L (3.5-5.1); Sodium 132 mmol/L (136-145); Total Protein 7.8 g/dL (6.4-8.2)
[2019-08-08 14:25] LABS: IgA 349 mg/dL (85-499); IgG 1800 mg/dL (610-1,616); IgM 74 mg/dL (35-242); Kappa Free Light Chain 2.63 mg/dL (0.33-1.94); Lambda Free Light Chain 1.36 mg/dL (0.57-2.63)
[2019-08-08 15:21] LABS: Albumin 53.1 % (55.8-66.1); Total Protein 7.7 g/dL (6.3-8.2)
== END 2019-08-06 03:42 ==
PROVIDERS: PCP Family Medicine; Visit Provider Internal Medicine Hematology & Oncology
DX: C90.00 Multiple myeloma not having achieved remission (principal)
CPT/HCPCS: 36415; 80053; 82784; 83883; 84165; 85025

== ENCOUNTER 2019-09-03 02:33 | Outpatient (CLI) | payer MEDICARE, BC, SELFPAY ==
[2019-09-03 13:19] LABS: Absolute Basophil Count 0.02 k/cumm (0.0-0.2); Absolute Eosinophil Count 0.16 k/cumm (0.0-0.7); Absolute Lymphocyte Count 1.41 k/cumm (1.2-3.4); Absolute Monocyte Count 0.28 k/cumm (0.11-0.7); Absolute Neutrophil Count 1.36 k/cumm (1.2-6.7); Basophils % 0.6; HCT 36.2 % (36.0-46.0); HGB 12.4 g/dL (12.0-15.5); Lymphocytes % 43.7; Mean Corp. HGB Concentration 34.3 g/dL (32.0-36.0); Mean Corpuscular Hemoglobin 33.2 pg (27.0-33.0); Mean Corpuscular Volume 96.8 fL (80-95); Mean Platelet Volume 8.7 fL (8.0-11.0); Monocytes % 8.7; Platelet Count 225 x1000/uL (130-400); RBC 3.74 m/cumm (4.00-5.20); White Blood Cell Count 3.23 k/cumm (4.4-10.8)
[2019-09-03 13:33] LABS: ALT 86 U/L (14-59); AST 34 U/L (15-37); Albumin 3.6 g/dL (3.4-5.0); Alkaline Phosphatase 91 U/L (46-116); Anion Gap 2.9 mmol/L (3-11); BUN 10 mg/dL (7-18); Bilirubin, Total 0.4 mg/dL (0.2-1.0); CO2 30.1 mmol/L (21.0-32.0); CREATININE 0.82 mg/dL (0.55-1.02); Chloride 98 mmol/L (98-107); Glucose 90 mg/dL (74-106); Potassium 4.6 mmol/L (3.5-5.1); Sodium 131 mmol/L (136-145); Total Protein 8.1 g/dL (6.4-8.2)
[2019-09-04 10:04] LABS: IgA 316 mg/dL (85-499); IgG 1759 mg/dL (610-1,616); IgM 67 mg/dL (35-242); Kappa Free Light Chain 2.71 mg/dL (0.33-1.94); Lambda Free Light Chain 1.49 mg/dL (0.57-2.63)
[2019-09-04 12:56] LABS: Albumin 53.8 % (55.8-66.1); Total Protein 7.6 g/dL (6.3-8.2)
== END 2019-09-03 02:53 ==
PROVIDERS: PCP Family Medicine; Visit Provider Internal Medicine Hematology & Oncology
DX: C90.00 Multiple myeloma not having achieved remission (principal)
CPT/HCPCS: 36415; 80053; 82784; 83883; 84165; 85025

== ENCOUNTER 2019-10-01 04:59 | Outpatient (CLI) | payer MEDICARE, BC, SELFPAY ==
[2019-10-01 13:14] LABS: Absolute Basophil Count 0.02 k/cumm (0.0-0.2); Absolute Eosinophil Count 0.19 k/cumm (0.0-0.7); Absolute Lymphocyte Count 1.38 k/cumm (1.2-3.4); Absolute Monocyte Count 0.23 k/cumm (0.11-0.7); Absolute Neutrophil Count 1.11 k/cumm (1.2-6.7); Basophils % 0.7; Eosinophils % 6.5; HCT 33.7 % (36.0-46.0); Lymphocytes % 47.1; Mean Corp. HGB Concentration 35.6 g/dL (32.0-36.0); Mean Corpuscular Hemoglobin 34.1 pg (27.0-33.0); Mean Corpuscular Volume 95.7 fL (80-95); Mean Platelet Volume 8.4 fL (8.0-11.0); Monocytes % 7.8; Neutrophils % 37.9; Platelet Count 194 x1000/uL (130-400); RBC 3.52 m/cumm (4.00-5.20); RBC Distribution Width 12.4 % (11.7-14.6); White Blood Cell Count 2.93 k/cumm (4.4-10.8)
[2019-10-01 13:29] LABS: ALT 40 U/L (14-59); AST 33 U/L (15-37); Albumin 3.5 g/dL (3.4-5.0); Alkaline Phosphatase 81 U/L (46-116); Anion Gap 1.4 mmol/L (3-11); BUN 9 mg/dL (7-18); Bilirubin, Total 0.4 mg/dL (0.2-1.0); CO2 31.6 mmol/L (21.0-32.0); CREATININE 0.73 mg/dL (0.55-1.02); Calcium 8.9 mg/dL (8.5-10.1); Chloride 98 mmol/L (98-107); Glucose 94 mg/dL (74-106); Sodium 131 mmol/L (136-145); Total Protein 7.9 g/dL (6.4-8.2)
[2019-10-02 10:52] LABS: IgA 321 mg/dL (85-499); IgG 1883 mg/dL (610-1,616); IgM 66 mg/dL (35-242); Kappa Free Light Chain 2.71 mg/dL (0.33-1.94); Lambda Free Light Chain 1.58 mg/dL (0.57-2.63)
[2019-10-02 13:18] LABS: Albumin 53.9 % (55.8-66.1); Total Protein 7.4 g/dL (6.3-8.2)
== END 2019-10-01 05:19 ==
PROVIDERS: PCP Family Medicine; Visit Provider Internal Medicine Hematology & Oncology
DX: C90.00 Multiple myeloma not having achieved remission (principal)
CPT/HCPCS: 36415; 80053; 82784; 83883; 84165; 85025

== ENCOUNTER 2019-10-29 02:01 | Outpatient (CLI) | payer MEDICARE, BC, SELFPAY ==
[2019-10-29 13:41] LABS: Abs Immature Grans 0.01 k/cumm (0.0-0.09); Absolute Basophil Count 0.02 k/cumm (0.0-0.2); Absolute Eosinophil Count 0.18 k/cumm (0.0-0.7); Absolute Neutrophil Count 1.25 k/cumm (1.2-6.7); Basophils % 0.8; HCT 33.6 % (36.0-46.0); HGB 11.7 g/dL (12.0-15.5); Immature Grans % 0.4 %; Lymphocytes % 35.2; Mean Corp. HGB Concentration 34.8 g/dL (32.0-36.0); Mean Corpuscular Hemoglobin 33.8 pg (27.0-33.0); Mean Corpuscular Volume 97.1 fL (80-95); Monocytes % 7.8; Neutrophils % 48.8; Platelet Count 189 x1000/uL (130-400); RBC 3.46 m/cumm (4.00-5.20); RBC Distribution Width 12.5 % (11.7-14.6); White Blood Cell Count 2.56 k/cumm (4.4-10.8)
[2019-10-29 14:00] LABS: ALT 30 U/L (14-59); AST 32 U/L (15-37); Albumin 3.3 g/dL (3.4-5.0); Alkaline Phosphatase 68 U/L (46-116); Anion Gap 6.6 mmol/L (3-11); BUN 10 mg/dL (7-18); Bilirubin, Total 0.3 mg/dL (0.2-1.0); CO2 27.4 mmol/L (21.0-32.0); CREATININE 0.66 mg/dL (0.55-1.02); Calcium 8.4 mg/dL (8.5-10.1); Chloride 100 mmol/L (98-107); Glucose 89 mg/dL (74-106); Potassium 4.8 mmol/L (3.5-5.1); Sodium 134 mmol/L (136-145)
[2019-10-30 11:12] LABS: IgA 302 mg/dL (85-499); IgG 1685 mg/dL (610-1,616); IgM 60 mg/dL (35-242); Kappa Free Light Chain 2.74 mg/dL (0.33-1.94); Lambda Free Light Chain 1.58 mg/dL (0.57-2.63)
[2019-10-30 13:19] LABS: Albumin 53.4 % (55.8-66.1); Total Protein 6.9 g/dL (6.3-8.2)
== END 2019-10-29 02:21 ==
PROVIDERS: PCP Family Medicine; Visit Provider Internal Medicine Hematology & Oncology
DX: C90.00 Multiple myeloma not having achieved remission (principal)
CPT/HCPCS: 36415; 80053; 82784; 83883; 84165; 85025

== ENCOUNTER 2019-11-23 04:26 | Outpatient (CLI) | payer MEDICARE, BC, SELFPAY ==
[2019-11-23] MEDS: Omnipaque 350 MG/ML 100 ML BTL IJ (15:31)
--- NOTE | 2019-11-23 15:33 | DI.CT_ITS ---
EXAM: CT ABDOMEN PELVIS W CLINICAL HISTORY: S/P HYST,BSO,AND RADIATION FOR ENDOMETRIAL CA, VAG BLEEDING. TECHNIQUE: Imaging Protocol: Axial computed tomography images with coronal and sagittal reformatted images were created and reviewed CONTRAST MATERIAL: Intravenous: Omnipaque 350 Contrast volume:84 cc Patient was pre-medicated prior to the exam. No contrast reaction was observed. Oral: yes COMPARISON: CT CT Abdomen / Pelvis Wi from 11/18/2009 CR,RF CHOLANGIOGRAM T TUBE from 12/14/2013 CT ABD PELVIS WITH CONTRAST from 12/26/2016 FINDINGS: ABDOMEN: Lung Bases: Normal where visualized. Liver: Normal density. No measurable mass. Gallbladder and biliary tract: Status post cholecystectomy. Pancreas: Mildly atrophic. No abnormal calcifications or inflammatory process. Spleen: Normal. Kidneys: Normal size, contour and axis. No radiodense stones or obstructive uropathy. No masses seen. Adrenal glands: No masses seen. Abdominal Aorta: Abdominal portion non-dilated. Mild atherosclerotic changes. PELVIS: Bladder: Symmetric distention, no gross wall thickening. Bowel: No obstruction or bowel wall thickening. Increased stool. Peritoneal cavity: No ascites, collection or mesenteric inflammatory response. Bones: Degenerative changes and scoliosis in the spine. Stable appearance of chronic mixed lytic and sclerotic lesion in the left iliac wing. Stable mild L5 compression fracture. Stable lucencies in the L3 and L4 vertebral bodies. Reproductive organs: Status post hysterectomy. No vaginal mass is visible. Lymph nodes: Unremarkable. Impression: Status post hysterectomy. No evidence of mass or adenopathy. Chronic bony changes are seen. RADIATION DOSE DELIVERED: 1,162.97mGy.cm Total DLP DATA REPOSITORY: All CT scans at this facility are submitted to the National Radiology Data Registry (NRDR) Dose Index Registry (DIR) with the [employer] (A[employer]). RADIATION OPTIMIZATION: All CT scans at this facility use at least one of these dose optimization te chniques: automated exposure control; mA and/or kV adjustment per patient size (includes targeted exa ms where dose is matched to clinical indication); or iterative reconstruction.
== END 2019-11-23 04:46 ==
PROVIDERS: PCP Family Medicine; Visit Provider Radiology Radiation Oncology
DX: Z90.710 Acquired absence of both cervix and uterus (principal)
CPT/HCPCS: 74177; J3490

== ENCOUNTER 2019-11-26 02:38 | Outpatient (CLI) | payer MEDICARE, BC, SELFPAY ==
[2019-11-26 13:35] LABS: Absolute Basophil Count 0.03 10^3/uL (0.0-0.2); Absolute Eosinophil Count 0.13 10^3/uL (0.0-0.7); Absolute Lymphocyte Count 1.31 10^3/uL (1.2-3.4); Absolute Monocyte Count 0.32 10^3/uL (0.1-0.8); Absolute Neutrophil Count 1.86 10^3/uL (1.2-6.7); Basophils % 0.8; Eosinophils % 3.6; HCT 37.5 % (36.0-46.0); Lymphocytes % 35.9; MCH 33.8 pg (27.0-33.0); MCHC 34.7 % (32.0-36.0); MCV 97.4 fL (80-95); MPV 9.1 fL (8.0-11.0); Monocytes % 8.8; Neutrophils % 50.9; Nucleated RBC 0 %; Platelet Count 172 10^3/uL (130-400); RBC 3.85 10^6/uL (3.93-5.22); RDW 12.5 % (11.7-14.6); RDW-SD 44.6 fL; WBC 3.65 10^3/uL (4.4-10.8)
[2019-11-26 13:55] LABS: ALT 39 U/L (14-59); AST 27 U/L (15-37); Albumin 3.5 g/dL (3.4-5.0); Alkaline Phosphatase 67 U/L (46-116); Anion Gap 4.6 mmol/L (3-11); BUN 11 mg/dL (7-18); Bilirubin, Total 0.4 mg/dL (0.2-1.0); CO2 30.4 mmol/L (21.0-32.0); CREATININE 0.72 mg/dL (0.55-1.02); Chloride 99 mmol/L (98-107); Glucose 89 mg/dL (74-106); Potassium 3.8 mmol/L (3.5-5.1); Sodium 134 mmol/L (136-145); Total Protein 7.9 g/dL (6.4-8.2)
[2019-11-27 09:29] LABS: IgA 308 mg/dL (85-499); IgG 1672 mg/dL (610-1,616); IgM 66 mg/dL (35-242); Lambda Free Light Chain 1.29 mg/dL (0.57-2.63)
[2019-11-27 13:43] LABS: Albumin 53.8 % (55.8-66.1); Total Protein 7.3 g/dL (6.3-8.2)
== END 2019-11-26 02:58 ==
PROVIDERS: PCP Family Medicine; Visit Provider Internal Medicine Hematology & Oncology
DX: C90.00 Multiple myeloma not having achieved remission (principal)
CPT/HCPCS: 36415; 80053; 82784; 83883; 84165; 85025

== ENCOUNTER 2019-12-24 02:08 | Outpatient (CLI) | payer MEDICARE, BC, SELFPAY ==
[2019-12-24 13:21] LABS: Absolute Basophil Count 0.02 10^3/uL (0.0-0.2); Absolute Eosinophil Count 0.15 10^3/uL (0.0-0.7); Absolute Monocyte Count 0.27 10^3/uL (0.1-0.8); Absolute Neutrophil Count 1.36 10^3/uL (1.2-6.7); Basophils % 0.7; Eosinophils % 5.4; HCT 33.8 % (36.0-46.0); HGB 11.9 g/dL (11.2-15.7); Lymphocytes % 35.7; MCH 33.9 pg (27.0-33.0); MCHC 35.2 % (32.0-36.0); MCV 96.3 fL (80-95); MPV 9.4 fL (8.0-11.0); Monocytes % 9.6; Neutrophils % 48.6; Nucleated RBC 0 %; Platelet Count 177 10^3/uL (130-400); RBC 3.51 10^6/uL (3.93-5.22); RDW 12.7 % (11.7-14.6); RDW-SD 44.3 fL
[2019-12-24 13:23] LABS: ALT 45 U/L (14-59); AST 32 U/L (15-37); Albumin 3.2 g/dL (3.4-5.0); Alkaline Phosphatase 85 U/L (46-116); Anion Gap 3.8 mmol/L (3-11); BUN 12 mg/dL (7-18); Bilirubin, Total 0.5 mg/dL (0.2-1.0); CO2 30.2 mmol/L (21.0-32.0); CREATININE 0.76 mg/dL (0.55-1.02); Calcium 8.4 mg/dL (8.5-10.1); Chloride 98 mmol/L (98-107); Glucose 91 mg/dL (74-106); Potassium 4.4 mmol/L (3.5-5.1); Sodium 132 mmol/L (136-145); Total Protein 7.2 g/dL (6.4-8.2)
[2019-12-25 13:21] LABS: IgA 315 mg/dL (85-499); IgG 1480 mg/dL (610-1,616); IgM 66 mg/dL (35-242); Kappa Free Light Chain 3.09 mg/dL (0.33-1.94); Lambda Free Light Chain 1.82 mg/dL (0.57-2.63)
[2019-12-25 14:00] LABS: Albumin 53.7 % (55.8-66.1)
== END 2019-12-24 02:28 ==
PROVIDERS: PCP Family Medicine; Visit Provider Internal Medicine Hematology & Oncology
DX: C90.00 Multiple myeloma not having achieved remission (principal)
CPT/HCPCS: 36415; 80053; 82784; 83883; 84165; 85025

== ENCOUNTER 2020-01-21 12:57 | Outpatient (CLI) | payer MEDICARE, BC, SELFPAY ==
[2020-01-21 13:27] LABS: Absolute Basophil Count 0.02 10^3/uL (0.0-0.2); Absolute Eosinophil Count 0.16 10^3/uL (0.0-0.7); Absolute Lymphocyte Count 1.15 10^3/uL (1.2-3.4); Absolute Monocyte Count 0.24 10^3/uL (0.1-0.8); Absolute Neutrophil Count 1.32 10^3/uL (1.2-6.7); Basophils % 0.7; Eosinophils % 5.5; HCT 36.2 % (36.0-46.0); HGB 12.6 g/dL (11.2-15.7); Lymphocytes % 39.8; MCH 33.5 pg (27.0-33.0); MCHC 34.8 % (32.0-36.0); MCV 96.3 fL (80-95); MPV 8.8 fL (8.0-11.0); Monocytes % 8.3; Neutrophils % 45.7; Nucleated RBC 0 %; Platelet Count 165 10^3/uL (130-400); RBC 3.76 10^6/uL (3.93-5.22); RDW 12.2 % (11.7-14.6); RDW-SD 42.8 fL; WBC 2.89 10^3/uL (4.4-10.8)
[2020-01-21 13:30] LABS: ALT 62 U/L (14-59); AST 36 U/L (15-37); Albumin 3.5 g/dL (3.4-5.0); Alkaline Phosphatase 93 U/L (46-116); Anion Gap 3.7 mmol/L (3-11); BUN 9 mg/dL (7-18); Bilirubin, Total 0.5 mg/dL (0.2-1.0); CO2 29.3 mmol/L (21.0-32.0); CREATININE 0.68 mg/dL (0.55-1.02); Calcium 8.7 mg/dL (8.5-10.1); Chloride 97 mmol/L (98-107); Glucose 98 mg/dL (74-106); Potassium 4.3 mmol/L (3.5-5.1); Sodium 130 mmol/L (136-145); Total Protein 7.9 g/dL (6.4-8.2)
[2020-01-22 12:43] LABS: IgA 329 mg/dL (85-499); IgG 1619 mg/dL (610-1,616); IgM 71 mg/dL (35-242); Kappa Free Light Chain 2.42 mg/dL (0.33-1.94); Lambda Free Light Chain 1.43 mg/dL (0.57-2.63)
[2020-01-22 13:35] LABS: Albumin 53.5 % (55.8-66.1); Total Protein 7.5 g/dL (6.3-8.2)
== END 2020-01-21 13:17 ==
PROVIDERS: PCP Family Medicine; Visit Provider Internal Medicine Hematology & Oncology
DX: C90.00 Multiple myeloma not having achieved remission (principal)
CPT/HCPCS: 36415; 80053; 82784; 83883; 84165; 85025

== ENCOUNTER 2020-02-18 02:46 | Outpatient (CLI) | payer MEDICARE, BC, SELFPAY ==
[2020-02-18 13:21] LABS: Absolute Basophil Count 0.02 10^3/uL (0.0-0.2); Absolute Eosinophil Count 0.17 10^3/uL (0.0-0.7); Absolute Lymphocyte Count 1.45 10^3/uL (1.2-3.4); Absolute Monocyte Count 0.31 10^3/uL (0.1-0.8); Absolute Neutrophil Count 1.28 10^3/uL (1.2-6.7); Basophils % 0.6; Eosinophils % 5.3; HCT 34.9 % (36.0-46.0); HGB 12.4 g/dL (11.2-15.7); Lymphocytes % 44.9; MCH 34.3 pg (27.0-33.0); MCHC 35.5 % (32.0-36.0); MCV 96.7 fL (80-95); MPV 8.9 fL (8.0-11.0); Monocytes % 9.6; Neutrophils % 39.6; Nucleated RBC 0 %; Platelet Count 184 10^3/uL (130-400); RBC 3.61 10^6/uL (3.93-5.22); RDW 12.5 % (11.7-14.6); WBC 3.23 10^3/uL (4.4-10.8)
[2020-02-18 13:40] LABS: ALT 20 U/L (14-59); AST 22 U/L (15-37); Albumin 3.6 g/dL (3.4-5.0); Alkaline Phosphatase 66 U/L (46-116); Anion Gap 5.8 mmol/L (3-11); BUN 13 mg/dL (7-18); Bilirubin, Total 0.5 mg/dL (0.2-1.0); CO2 29.2 mmol/L (21.0-32.0); CREATININE 0.62 mg/dL (0.55-1.02); Calcium 8.7 mg/dL (8.5-10.1); Chloride 96 mmol/L (98-107); Glucose 87 mg/dL (74-106); Sodium 131 mmol/L (136-145); Total Protein 7.9 g/dL (6.4-8.2)
[2020-03-05 11:44] LABS: IgA 336 mg/dL (61-356); IgG 1740 mg/dL (767-1590); IgM 60 mg/dL (37-286); Kappa Free Light Chain 1.97 mg/dL (0.3300-1.94)
[2020-03-05 11:45] LABS: Albumin 3.5 g/dL (3.4-4.7); Lambda Free Light Chain 1.65 mg/dL (0.5700-2.63); Total Protein 7.3 g/dL (6.3-7.9)
[2020-03-05 11:46] LABS: Comment See Comments
== END 2020-02-18 03:06 ==
PROVIDERS: PCP Family Medicine; Visit Provider Internal Medicine Hematology & Oncology
DX: C90.00 Multiple myeloma not having achieved remission (principal)
CPT/HCPCS: 36415; 80053; 82784; 83883; 84165; 85025

== ENCOUNTER 2020-03-17 03:33 | Outpatient (CLI) | payer MEDICARE, BC, SELFPAY ==
[2020-03-17 13:27] LABS: Abs Immature Grans 0.01 10^3/uL (0.0-0.06); Absolute Basophil Count 0.02 10^3/uL (0.0-0.2); Absolute Eosinophil Count 0.16 10^3/uL (0.0-0.7); Absolute Lymphocyte Count 1.41 10^3/uL (1.2-3.4); Absolute Monocyte Count 0.25 10^3/uL (0.1-0.8); Absolute Neutrophil Count 1.18 10^3/uL (1.2-6.7); Basophils % 0.7; Eosinophils % 5.3; HCT 36.2 % (36.0-46.0); HGB 12.7 g/dL (11.2-15.7); Immature Grans % 0.3; Lymphocytes % 46.5; MCH 34.2 pg (27.0-33.0); MCHC 35.1 % (32.0-36.0); MCV 97.6 fL (80-95); MPV 8.7 fL (8.0-11.0); Monocytes % 8.3; Neutrophils % 38.9; Nucleated RBC 0 %; Platelet Count 175 10^3/uL (130-400); RBC 3.71 10^6/uL (3.93-5.22); RDW 12.2 % (11.7-14.6); RDW-SD 43.8 fL; WBC 3.03 10^3/uL (4.4-10.8)
[2020-03-17 14:30] LABS: ALT 22 U/L (14-59); AST 23 U/L (15-37); Albumin 3.7 g/dL (3.4-5.0); Alkaline Phosphatase 70 U/L (46-116); Anion Gap 4.2 mmol/L (3-11); BUN 11 mg/dL (7-18); Bilirubin, Total 0.5 mg/dL (0.2-1.0); CO2 28.8 mmol/L (21.0-32.0); CREATININE 0.75 mg/dL (0.55-1.02); Calcium 8.7 mg/dL (8.5-10.1); Chloride 97 mmol/L (98-107); Glucose 87 mg/dL (74-106); Potassium 4.1 mmol/L (3.5-5.1); Sodium 130 mmol/L (136-145); Total Protein 7.8 g/dL (6.4-8.2)
[2020-03-18 09:50] LABS: IgA 327 mg/dL (85-499); IgG 1626 mg/dL (610-1,616); IgM 66 mg/dL (35-242); Kappa Free Light Chain 2.26 mg/dL (0.33-1.94); Lambda Free Light Chain 1.59 mg/dL (0.57-2.63)
[2020-03-18 14:34] LABS: Albumin 54.5 % (55.8-66.1); Total Protein 7.6 g/dL (6.3-8.2)
== END 2020-03-17 03:53 ==
PROVIDERS: PCP Family Medicine; Visit Provider Internal Medicine Hematology & Oncology
DX: C90.00 Multiple myeloma not having achieved remission (principal)
CPT/HCPCS: 36415; 80053; 82784; 83883; 84165; 85025

== ENCOUNTER 2020-03-31 01:55 | Outpatient (CLI) | payer MEDICARE, BC, SELFPAY ==
--- NOTE | 2020-03-31 08:15 | DI.MAMMO_ITS ---
EXAM: MG MAMMO SCREENING CLINICAL HISTORY: screening, Z12.31. TECHNIQUE: Bilateral full field digital CC and MLO mammographic images were obtained with 3D tomosyn thesis and utilizing computer aided detection (CAD). COMPARISON: Prior mammograms dating back to 2011, the most recent being March 2019.. Breast ultr asound February 2015 was reviewed. FINDINGS: There are no CAD designations. The fibroglandular tissue is moderately dense. There are no new obvious spiculated masses nor malignant appearing microcalcification groups. There is no significant architectural distortion nor skin thickening-retraction. IMPRESSION: Moderately dense fibroglandular tissue. No obvious radiographic evidence of malignancy. Given the density of her fibroglandular tissue and the abnormal findings on the right breast ultrasou nd performed 2014 I recommend repeat breast ultrasound at this time. BI-RADS Category 0 - Assessment Incomplete: Need additional imaging evaluation Breast Density - Category C - Heterogeneously dense Breast density Category C or D implies that the patient has dense breast tissue. Dense breast tissue can make it harder to find cancer on a mammogram. Dense breast tissue is also associated with an incr eased risk of breast cancer. This information about the result of the mammogram report was provided to the patient to raise their awareness. Use this report when you speak with the patient about their risks for breast cancer, which includes their family history. At that time, you may recommend additional screening tests (Ultrasoun d or MRI) as these tests may add significant information. A negative radiographic report should not delay biopsy if a dominant or clinically suspicious mass is present. Up to ten percent of cancers are not identified on mammography. A negative report may reinforce clinical impression. Adenosis and dense breasts may obscure an underlying neoplasm. False positive reports average 6 to 10%. Patient will receive a letter notifying them of these results.
== END 2020-03-31 02:15 ==
PROVIDERS: PCP Family Medicine; Visit Provider Family Medicine
DX: Z12.31 Encounter for screening mammogram for malignant neoplasm of breast (principal); R92.8 Other abnormal and inconclusive findings on diagnostic imaging of breast
CPT/HCPCS: 77063; 77067

== ENCOUNTER 2020-04-08 01:33 | Outpatient (CLI) | payer MEDICARE, BC, SELFPAY ==
--- NOTE | 2020-04-08 | DI.US_ITS ---
EXAM: US BREAST RT COMPLETE CLINICAL HISTORY: F/U INCONCLUSIVE MAMMO, R92.8,COMPARE TO US 2015 TECHNIQUE: Ultrasound right breast performed using standard protocol. COMPARISON: US RIGHT BREAST ULTRASOUND from 03/05/2016 US ULTRASOUN GUIDED BIOPSY BREAST from 05/11/2016 MG MG MAMMO SCREENING from 03/27/2019 FINDINGS: All 4 quadrants of the right breast were evaluated sonographically. No solid or cystic masses, hypoe choic foci, areas of abnormal shadowing, or areas of skin thickening. IMPRESSION: No sonographically suspicious finding. Yearly mammography is recommended in this patient. Findings were discussed with the patient on the d ate of the examination. BI-RADS Category 1 - Negative DATA REPOSITORY:
== END 2020-04-08 01:53 ==
PROVIDERS: PCP Family Medicine; Visit Provider Family Medicine
DX: Z12.31 Encounter for screening mammogram for malignant neoplasm of breast (principal); R92.8 Other abnormal and inconclusive findings on diagnostic imaging of breast; N64.59 Other signs and symptoms in breast
CPT/HCPCS: 76642

== ENCOUNTER 2020-05-12 03:29 | Outpatient (CLI) | payer MEDICARE, BC, SELFPAY ==
[2020-05-12 13:05] LABS: Abs Immature Grans 0.01 10^3/uL (0.0-0.06); Absolute Basophil Count 0.02 10^3/uL (0.0-0.2); Absolute Eosinophil Count 0.12 10^3/uL (0.0-0.7); Absolute Lymphocyte Count 1.26 10^3/uL (1.2-3.4); Absolute Monocyte Count 0.28 10^3/uL (0.1-0.8); Basophils % 0.5; Eosinophils % 3.1; HCT 35.5 % (36.0-46.0); HGB 12.4 g/dL (11.2-15.7); Immature Grans % 0.3; Lymphocytes % 32.4; MCHC 34.9 % (32.0-36.0); MCV 97.3 fL (80-95); MPV 8.3 fL (8.0-11.0); Monocytes % 7.2; Neutrophils % 56.5; Nucleated RBC 0 %; Platelet Count 156 10^3/uL (130-400); RBC 3.65 10^6/uL (3.93-5.22); RDW 12.1 % (11.7-14.6); RDW-SD 42.9 fL; WBC 3.89 10^3/uL (4.4-10.8)
[2020-05-12 13:20] LABS: ALT 22 U/L (14-59); AST 18 U/L (15-37); Albumin 3.4 g/dL (3.4-5.0); Alkaline Phosphatase 80 U/L (46-116); Anion Gap 5.6 mmol/L (3-11); BUN 9 mg/dL (7-18); Bilirubin, Total 0.4 mg/dL (0.2-1.0); CO2 30.4 mmol/L (21.0-32.0); CREATININE 0.7 mg/dL (0.55-1.02); Calcium 8.7 mg/dL (8.5-10.1); Chloride 101 mmol/L (98-107); Glucose 87 mg/dL (74-106); Potassium 4.2 mmol/L (3.5-5.1); Sodium 137 mmol/L (136-145); Total Protein 7.7 g/dL (6.4-8.2)
[2020-05-13 10:53] LABS: IgA 321 mg/dL (85-499); IgG 1573 mg/dL (610-1,616); IgM 57 mg/dL (35-242); Kappa Free Light Chain 2.51 mg/dL (0.33-1.94); Lambda Free Light Chain 1.83 mg/dL (0.57-2.63)
[2020-05-13 15:01] LABS: Albumin 54.8 % (55.8-66.1); Total Protein 7.2 g/dL (6.3-8.2)
== END 2020-05-12 03:30 | disposition home or self-care (01) ==
LOC: LBO 03:30
PROVIDERS: PCP Family Medicine; Visit Provider Internal Medicine Hematology & Oncology
DX: C90.00 Multiple myeloma not having achieved remission (principal)
CPT/HCPCS: 36415; 80053; 82784; 83883; 84165; 85025

== ENCOUNTER 2020-07-07 04:27 | Outpatient (CLI) | payer MEDICARE, BC, SELFPAY ==
[2020-07-07 13:18] LABS: Absolute Basophil Count 0.02 10^3/uL (0.0-0.2); Absolute Eosinophil Count 0.12 10^3/uL (0.0-0.7); Absolute Lymphocyte Count 0.74 10^3/uL (1.2-3.4); Absolute Monocyte Count 0.25 10^3/uL (0.1-0.8); Absolute Neutrophil Count 1.23 10^3/uL (1.2-6.7); Basophils % 0.8; Eosinophils % 5.1; HCT 34.7 % (36.0-46.0); HGB 12.2 g/dL (11.2-15.7); Lymphocytes % 31.4; MCHC 35.2 % (32.0-36.0); MCV 96.7 fL (80-95); MPV 8.7 fL (8.0-11.0); Monocytes % 10.6; Neutrophils % 52.1; Nucleated RBC 0 %; Platelet Count 154 10^3/uL (130-400); RBC 3.59 10^6/uL (3.93-5.22); RDW 12.5 % (11.7-14.6); RDW-SD 44.3 fL; WBC 2.36 10^3/uL (4.4-10.8)
[2020-07-07 14:22] LABS: ALT 289 U/L (14-59); AST 604 U/L (15-37); Albumin 3.5 g/dL (3.4-5.0); Alkaline Phosphatase 118 U/L (46-116); Anion Gap 5.1 mmol/L (3-11); BUN 12 mg/dL (7-18); Bilirubin, Total 0.6 mg/dL (0.2-1.0); CO2 29.9 mmol/L (21.0-32.0); CREATININE 0.8 mg/dL (0.55-1.02); Calcium 8.7 mg/dL (8.5-10.1); Chloride 100 mmol/L (98-107); Glucose 89 mg/dL (74-106); Potassium 3.9 mmol/L (3.5-5.1); Sodium 135 mmol/L (136-145); Total Protein 7.5 g/dL (6.4-8.2)
[2020-07-08 12:10] LABS: IgA 324 mg/dL (85-499); IgG 1732 mg/dL (610-1,616); IgM 68 mg/dL (35-242); Kappa Free Light Chain 2.84 mg/dL (0.33-1.94); Lambda Free Light Chain 1.93 mg/dL (0.57-2.63)
[2020-07-08 15:22] LABS: Albumin 55.1 % (55.8-66.1); Total Protein 7.3 g/dL (6.3-8.2)
== END 2020-07-07 04:28 | disposition home or self-care (01) ==
LOC: LBO 04:28
PROVIDERS: PCP Family Medicine; Visit Provider Internal Medicine Hematology & Oncology
DX: C90.00 Multiple myeloma not having achieved remission (principal)
CPT/HCPCS: 36415; 80053; 82784; 83883; 84165; 85025

== ENCOUNTER 2020-07-09 03:27 | Outpatient (CLI) | payer MEDICARE, BC, SELFPAY ==
[2020-07-09 08:21] LABS: ALT 154 U/L (14-59); AST 69 U/L (15-37); Albumin 3.3 g/dL (3.4-5.0); Alkaline Phosphatase 106 U/L (46-116); Anion Gap 6.5 mmol/L (3-11); BUN 11 mg/dL (7-18); Bilirubin, Total 0.3 mg/dL (0.2-1.0); CO2 29.5 mmol/L (21.0-32.0); CREATININE 0.8 mg/dL (0.55-1.02); Calcium 8.7 mg/dL (8.5-10.1); Chloride 101 mmol/L (98-107); Glucose 69 mg/dL (74-106); Potassium 3.8 mmol/L (3.5-5.1); Sodium 137 mmol/L (136-145); Total Protein 7.7 g/dL (6.4-8.2)
[2020-07-10 11:11] LABS: IgA 303 mg/dL (85-499); IgG 1579 mg/dL (610-1,616); IgM 62 mg/dL (35-242)
[2020-07-10 15:21] LABS: ANA Interpretation Negative (Negative)
[2020-07-10 15:26] LABS: HCV RNA Qualitative Undetected (Undetected)
[2020-07-11 12:28] LABS: Smooth Muscle Ab Screen Negative (Negative)
[2020-07-11 13:01] LABS: EBNA IgG Negative (Negative); EBV Interpretation (See Note); VCA IgG Positive (Negative); VCA IgM Negative (Negative)
[2020-07-11 17:31] LABS: HBV DNA Detect/Quant, PCR Undetected IU/mL (Undetected)
[2020-07-11 20:49] LABS: EBV DNA Detect/Quant, P Undetected IU/mL (Undetected)
== END 2020-07-09 03:28 | disposition home or self-care (01) ==
LOC: LBO 03:27
PROVIDERS: PCP Family Medicine; Visit Provider Internal Medicine Hematology & Oncology
DX: K75.9 Inflammatory liver disease, unspecified (principal); C90.00 Multiple myeloma not having achieved remission
CPT/HCPCS: 36415; 80053; 82784; 87517; 87522; 87799; 86038; 86255; 86664; 86665

== ENCOUNTER 2020-07-14 04:09 | Outpatient (CLI) | payer MEDICARE, BC, SELFPAY ==
[2020-07-14 10:07] LABS: Abs Immature Grans 0.01 10^3/uL (0.0-0.06); Absolute Basophil Count 0.02 10^3/uL (0.0-0.2); Absolute Eosinophil Count 0.18 10^3/uL (0.0-0.7); Absolute Lymphocyte Count 1.36 10^3/uL (1.2-3.4); Absolute Monocyte Count 0.22 10^3/uL (0.1-0.8); Absolute Neutrophil Count 1.36 10^3/uL (1.2-6.7); Basophils % 0.6; Eosinophils % 5.7; HCT 34.7 % (36.0-46.0); HGB 12.2 g/dL (11.2-15.7); Immature Grans % 0.3; Lymphocytes % 43.2; MCH 33.8 pg (27.0-33.0); MCHC 35.2 % (32.0-36.0); MCV 96.1 fL (80-95); MPV 8.8 fL (8.0-11.0); Neutrophils % 43.2; Nucleated RBC 0 %; Platelet Count 173 10^3/uL (130-400); RBC 3.61 10^6/uL (3.93-5.22); RDW-SD 42.2 fL; WBC 3.15 10^3/uL (4.4-10.8)
[2020-07-14 10:20] LABS: ALT 53 U/L (14-59); AST 17 U/L (15-37); Albumin 3.3 g/dL (3.4-5.0); Alkaline Phosphatase 87 U/L (46-116); Anion Gap 5.9 mmol/L (3-11); BUN 11 mg/dL (7-18); Bilirubin, Total 0.3 mg/dL (0.2-1.0); CO2 29.1 mmol/L (21.0-32.0); CREATININE 0.9 mg/dL (0.55-1.02); Calcium 8.7 mg/dL (8.5-10.1); Chloride 99 mmol/L (98-107); Glucose 85 mg/dL (74-106); Potassium 4.2 mmol/L (3.5-5.1); Sodium 134 mmol/L (136-145); Total Protein 7.6 g/dL (6.4-8.2)
[2020-07-15 08:56] LABS: IgA 318 mg/dL (85-499); IgG 1631 mg/dL (610-1,616); IgM 62 mg/dL (35-242); Kappa Free Light Chain 2.47 mg/dL (0.33-1.94); Lambda Free Light Chain 1.69 mg/dL (0.57-2.63)
[2020-07-15 14:09] LABS: Albumin 54.6 % (55.8-66.1); Total Protein 7.2 g/dL (6.3-8.2)
== END 2020-07-14 04:10 | disposition home or self-care (01) ==
LOC: LBO 04:09
PROVIDERS: PCP Family Medicine; Visit Provider Internal Medicine Hematology & Oncology
DX: C90.00 Multiple myeloma not having achieved remission (principal)
CPT/HCPCS: 36415; 80053; 82784; 83883; 84165; 85025

== ENCOUNTER 2020-08-06 04:28 | Outpatient (CLI) | payer MEDICARE, BC, SELFPAY ==
[2020-08-06 10:20] LABS: Abs Immature Grans 0.01 10^3/uL (0.0-0.06); Absolute Basophil Count 0.01 10^3/uL (0.0-0.2); Absolute Eosinophil Count 0.19 10^3/uL (0.0-0.7); Absolute Lymphocyte Count 1.02 10^3/uL (1.2-3.4); Absolute Monocyte Count 0.24 10^3/uL (0.1-0.8); Absolute Neutrophil Count 0.72 10^3/uL (1.2-6.7); Basophils % 0.5; Eosinophils % 8.7; HCT 35.3 % (36.0-46.0); Immature Grans % 0.5; Lymphocytes % 46.6; MCH 33.3 pg (27.0-33.0); MCV 98.1 fL (80-95); MPV 9.3 fL (8.0-11.0); Neutrophils % 32.7; Nucleated RBC 0 %; Platelet Count 153 10^3/uL (130-400); RDW 12.5 % (11.7-14.6); RDW-SD 45.1 fL; WBC 2.19 10^3/uL (4.4-10.8)
[2020-08-06 10:37] LABS: Diff Comment Diff Reviewed; RBC Morphology Normal
[2020-08-06 10:40] LABS: ALT 29 U/L (14-59); AST 23 U/L (15-37); Albumin 3.4 g/dL (3.4-5.0); Alkaline Phosphatase 69 U/L (46-116); Anion Gap 3.9 mmol/L (3-11); BUN 12 mg/dL (7-18); Bilirubin, Total 0.5 mg/dL (0.2-1.0); CO2 32.1 mmol/L (21.0-32.0); CREATININE 0.9 mg/dL (0.55-1.02); Calcium 8.7 mg/dL (8.5-10.1); Chloride 105 mmol/L (98-107); Glucose 88 mg/dL (74-106); Potassium 3.8 mmol/L (3.5-5.1); Sodium 141 mmol/L (136-145); Total Protein 7.8 g/dL (6.4-8.2)
[2020-08-07 10:05] LABS: IgA 320 mg/dL (85-499); IgG 1664 mg/dL (610-1,616); IgM 64 mg/dL (35-242); Kappa Free Light Chain 3.68 mg/dL (0.33-1.94); Lambda Free Light Chain 2.18 mg/dL (0.57-2.63)
[2020-08-07 14:39] LABS: Albumin 54.7 % (55.8-66.1); Total Protein 7.2 g/dL (6.3-8.2)
== END 2020-08-06 04:29 | disposition home or self-care (01) ==
LOC: LBO 04:28
PROVIDERS: PCP Family Medicine; Visit Provider Internal Medicine Hematology & Oncology
DX: C90.00 Multiple myeloma not having achieved remission (principal)
CPT/HCPCS: 36415; 80053; 82784; 83883; 84165; 85025

== ENCOUNTER 2020-08-11 03:21 | Outpatient (CLI) | payer MEDICARE, BC, SELFPAY ==
[2020-08-11 13:19] LABS: Abs Immature Grans 0.03 10^3/uL (0.0-0.06); Absolute Basophil Count 0.02 10^3/uL (0.0-0.2); Absolute Eosinophil Count 0.07 10^3/uL (0.0-0.7); Absolute Lymphocyte Count 1.34 10^3/uL (1.2-3.4); Absolute Monocyte Count 0.23 10^3/uL (0.1-0.8); Absolute Neutrophil Count 1.87 10^3/uL (1.2-6.7); Basophils % 0.6; HCT 34.2 % (36.0-46.0); Immature Grans % 0.8; Lymphocytes % 37.6; MCH 34.3 pg (27.0-33.0); MCHC 35.1 % (32.0-36.0); MCV 97.7 fL (80-95); Monocytes % 6.5; Neutrophils % 52.5; Nucleated RBC 0 %; Platelet Count 162 10^3/uL (130-400); RDW 12.4 % (11.7-14.6); WBC 3.56 10^3/uL (4.4-10.8)
[2020-08-11 13:32] LABS: ALT 26 U/L (14-59); AST 22 U/L (15-37); Albumin 3.4 g/dL (3.4-5.0); Alkaline Phosphatase 70 U/L (46-116); Anion Gap 6.7 mmol/L (3-11); BUN 13 mg/dL (7-18); Bilirubin, Total 0.3 mg/dL (0.2-1.0); CO2 28.3 mmol/L (21.0-32.0); CREATININE 0.8 mg/dL (0.55-1.02); Calcium 8.4 mg/dL (8.5-10.1); Chloride 100 mmol/L (98-107); Glucose 101 mg/dL (74-106); Potassium 4.4 mmol/L (3.5-5.1); Sodium 135 mmol/L (136-145); Total Protein 7.8 g/dL (6.4-8.2)
[2020-08-13 12:16] LABS: IgA 318 mg/dL (85-499); IgG 1714 mg/dL (610-1,616); IgM 66 mg/dL (35-242); Kappa Free Light Chain 2.61 mg/dL (0.33-1.94); Lambda Free Light Chain 1.85 mg/dL (0.57-2.63)
[2020-08-13 14:04] LABS: Albumin 55.4 % (55.8-66.1); Total Protein 7.3 g/dL (6.3-8.2)
== END 2020-08-11 03:22 | disposition home or self-care (01) ==
LOC: LBO 03:21
PROVIDERS: PCP Family Medicine; Visit Provider Internal Medicine Hematology & Oncology
DX: C90.00 Multiple myeloma not having achieved remission (principal)
CPT/HCPCS: 36415; 80053; 82784; 83883; 84165; 85025

== ENCOUNTER 2020-09-08 09:22 | Outpatient (CLI) | payer MEDICARE, BC, SELFPAY ==
[2020-09-08 13:18] LABS: Abs Immature Grans 0.01 10^3/uL (0.0-0.06); Absolute Basophil Count 0.02 10^3/uL (0.0-0.2); Absolute Eosinophil Count 0.17 10^3/uL (0.0-0.7); Absolute Lymphocyte Count 1.43 10^3/uL (1.2-3.4); Absolute Monocyte Count 0.26 10^3/uL (0.1-0.8); Absolute Neutrophil Count 1.22 10^3/uL (1.2-6.7); Basophils % 0.6; Eosinophils % 5.5; HCT 34.2 % (36.0-46.0); HGB 12.1 g/dL (11.2-15.7); Immature Grans % 0.3; MCH 33.7 pg (27.0-33.0); MCHC 35.4 % (32.0-36.0); MCV 95.3 fL (80-95); MPV 8.9 fL (8.0-11.0); Monocytes % 8.4; Neutrophils % 39.2; Nucleated RBC 0 %; Platelet Count 156 10^3/uL (130-400); RBC 3.59 10^6/uL (3.93-5.22); RDW 12.2 % (11.7-14.6); RDW-SD 42.7 fL; WBC 3.11 10^3/uL (4.4-10.8)
[2020-09-08 13:26] LABS: ALT 37 U/L (14-59); AST 28 U/L (15-37); Albumin 3.3 g/dL (3.4-5.0); Alkaline Phosphatase 76 U/L (46-116); Anion Gap 7.2 mmol/L (3-11); BUN 15 mg/dL (7-18); Bilirubin, Total 0.3 mg/dL (0.2-1.0); CO2 26.8 mmol/L (21.0-32.0); CREATININE 0.8 mg/dL (0.55-1.02); Calcium 8.3 mg/dL (8.5-10.1); Chloride 101 mmol/L (98-107); Glucose 102 mg/dL (74-106); Potassium 4.2 mmol/L (3.5-5.1); Sodium 135 mmol/L (136-145); Total Protein 7.7 g/dL (6.4-8.2)
[2020-09-09 09:39] LABS: IgA 307 mg/dL (85-499); IgG 1666 mg/dL (610-1,616); IgM 64 mg/dL (35-242); Kappa Free Light Chain 2.58 mg/dL (0.33-1.94); Lambda Free Light Chain 1.71 mg/dL (0.57-2.63)
[2020-09-09 12:20] LABS: Albumin 55.3 % (55.8-66.1); Total Protein 7.3 g/dL (6.3-8.2)
== END 2020-09-08 09:23 | disposition home or self-care (01) ==
LOC: LBO 09:26
PROVIDERS: PCP Family Medicine; Visit Provider Internal Medicine Hematology & Oncology
DX: C90.00 Multiple myeloma not having achieved remission (principal)
CPT/HCPCS: 36415; 80053; 82784; 83883; 84165; 85025

== ENCOUNTER 2020-10-07 04:15 | Outpatient (CLI) | payer MEDICARE, BC, SELFPAY ==
[2020-10-07 13:24] LABS: Absolute Basophil Count 0.02 10^3/uL (0.0-0.2); Absolute Eosinophil Count 0.15 10^3/uL (0.0-0.7); Absolute Lymphocyte Count 1.29 10^3/uL (1.2-3.4); Absolute Monocyte Count 0.27 10^3/uL (0.1-0.8); Absolute Neutrophil Count 1.46 10^3/uL (1.2-6.7); Basophils % 0.6; Eosinophils % 4.7; HCT 35.2 % (36.0-46.0); HGB 12.3 g/dL (11.2-15.7); Lymphocytes % 40.4; MCH 33.7 pg (27.0-33.0); MCHC 34.9 % (32.0-36.0); MCV 96.4 fL (80-95); Monocytes % 8.5; Neutrophils % 45.8; Nucleated RBC 0 %; Platelet Count 162 10^3/uL (130-400); RBC 3.65 10^6/uL (3.93-5.22); RDW 12.3 % (11.7-14.6); RDW-SD 43.5 fL; WBC 3.19 10^3/uL (4.4-10.8)
[2020-10-07 13:40] LABS: ALT 31 U/L (14-59); AST 25 U/L (15-37); Albumin 3.4 g/dL (3.4-5.0); Alkaline Phosphatase 72 U/L (46-116); Anion Gap 8.7 mmol/L (3-11); BUN 13 mg/dL (7-18); Bilirubin, Total 0.4 mg/dL (0.2-1.0); CO2 26.3 mmol/L (21.0-32.0); CREATININE 0.8 mg/dL (0.55-1.02); Calcium 8.9 mg/dL (8.5-10.1); Chloride 103 mmol/L (98-107); Glucose 97 mg/dL (74-106); Potassium 4.5 mmol/L (3.5-5.1); Sodium 138 mmol/L (136-145); Total Protein 7.8 g/dL (6.4-8.2)
[2020-10-08 09:55] LABS: IgA 324 mg/dL (85-499); IgG 1775 mg/dL (610-1,616); IgM 69 mg/dL (35-242); Kappa Free Light Chain 2.55 mg/dL (0.33-1.94); Lambda Free Light Chain 1.85 mg/dL (0.57-2.63)
[2020-10-08 13:30] LABS: Albumin 54.3 % (55.8-66.1); Total Protein 7.5 g/dL (6.3-8.2)
== END 2020-10-07 04:16 | disposition home or self-care (01) ==
LOC: LBO 04:15
PROVIDERS: PCP Family Medicine; Visit Provider Internal Medicine Hematology & Oncology
DX: C90.00 Multiple myeloma not having achieved remission (principal)
CPT/HCPCS: 36415; 80053; 82784; 83883; 84165; 85025

== ENCOUNTER 2020-11-03 13:13 | Outpatient (CLI) | payer MEDICARE, BC, SELFPAY ==
[2020-11-03 13:19] LABS: Absolute Basophil Count 0.02 10^3/uL (0.0-0.2); Absolute Eosinophil Count 0.09 10^3/uL (0.0-0.7); Absolute Monocyte Count 0.22 10^3/uL (0.1-0.8); Basophils % 0.7; Eosinophils % 3.2; HCT 34.7 % (36.0-46.0); Lymphocytes % 42.4; MCH 33.1 pg (27.0-33.0); MCHC 34.6 % (32.0-36.0); MCV 95.6 fL (80-95); MPV 8.8 fL (8.0-11.0); Monocytes % 7.8; Neutrophils % 45.9; Nucleated RBC 0 %; Platelet Count 166 10^3/uL (130-400); RBC 3.63 10^6/uL (3.93-5.22); RDW 12.5 % (11.7-14.6); RDW-SD 43.8 fL; WBC 2.83 10^3/uL (4.4-10.8)
[2020-11-03 16:00] LABS: ALT 27 U/L (14-59); AST 26 U/L (15-37); Albumin 3.4 g/dL (3.4-5.0); Alkaline Phosphatase 66 U/L (46-116); Anion Gap 5.4 mmol/L (3-11); BUN 11 mg/dL (7-18); Bilirubin, Total 0.4 mg/dL (0.2-1.0); CO2 29.6 mmol/L (21.0-32.0); CREATININE 0.6 mg/dL (0.55-1.02); Calcium 8.8 mg/dL (8.5-10.1); Chloride 100 mmol/L (98-107); Glucose 87 mg/dL (74-106); Sodium 135 mmol/L (136-145); Total Protein 7.3 g/dL (6.4-8.2)
[2020-11-04 10:02] LABS: IgA 333 mg/dL (85-499); IgG 1827 mg/dL (610-1,616); IgM 64 mg/dL (35-242); Kappa Free Light Chain 2.32 mg/dL (0.33-1.94); Lambda Free Light Chain 1.71 mg/dL (0.57-2.63)
[2020-11-04 13:39] LABS: Albumin 53.6 % (55.8-66.1); Total Protein 7.3 g/dL (6.3-8.2)
== END 2020-11-03 13:14 | disposition home or self-care (01) ==
LOC: LBO 13:13
PROVIDERS: PCP Family Medicine; Visit Provider Internal Medicine Hematology & Oncology
DX: C90.00 Multiple myeloma not having achieved remission (principal)
CPT/HCPCS: 36415; 80053; 82784; 83883; 84165; 85025

== ENCOUNTER 2020-12-01 03:49 | Outpatient (CLI) | payer MEDICARE, BC, SELFPAY ==
[2020-12-01 13:32] LABS: Absolute Basophil Count 0.03 10^3/uL (0.0-0.2); Absolute Eosinophil Count 0.06 10^3/uL (0.0-0.7); Absolute Lymphocyte Count 0.85 10^3/uL (1.2-3.4); Absolute Neutrophil Count 1.55 10^3/uL (1.2-6.7); Basophils % 1.1; Eosinophils % 2.2; HCT 35.2 % (36.0-46.0); Lymphocytes % 31.6; MCH 33.1 pg (27.0-33.0); MCHC 34.1 % (32.0-36.0); MPV 9.3 fL (8.0-11.0); Monocytes % 7.4; Neutrophils % 57.7; Nucleated RBC 0 %; Platelet Count 173 10^3/uL (130-400); RBC 3.63 10^6/uL (3.93-5.22); RDW 12.9 % (11.7-14.6); RDW-SD 45.9 fL; WBC 2.69 10^3/uL (4.4-10.8)
[2020-12-01 13:41] LABS: ALT 39 U/L (14-59); AST 26 U/L (15-37); Albumin 3.4 g/dL (3.4-5.0); Alkaline Phosphatase 76 U/L (46-116); Anion Gap 4.2 mmol/L (3-11); BUN 8 mg/dL (7-18); Bilirubin, Total 0.3 mg/dL (0.2-1.0); CO2 30.8 mmol/L (21.0-32.0); CREATININE 0.7 mg/dL (0.55-1.02); Calcium 8.6 mg/dL (8.5-10.1); Chloride 101 mmol/L (98-107); Glucose 98 mg/dL (74-106); Potassium 4.4 mmol/L (3.5-5.1); Sodium 136 mmol/L (136-145); Total Protein 7.7 g/dL (6.4-8.2)
[2020-12-02 09:20] LABS: IgA 351 mg/dL (85-499); IgG 1702 mg/dL (610-1,616); IgM 66 mg/dL (35-242); Kappa Free Light Chain 2.14 mg/dL (0.33-1.94); Lambda Free Light Chain 1.64 mg/dL (0.57-2.63)
[2020-12-02 12:30] LABS: Albumin 55.2 % (55.8-66.1); Total Protein 7.2 g/dL (6.3-8.2)
== END 2020-12-01 03:50 | disposition home or self-care (01) ==
LOC: LBO 03:49
PROVIDERS: PCP Family Medicine; Visit Provider Internal Medicine Hematology & Oncology
DX: C90.00 Multiple myeloma not having achieved remission (principal)
CPT/HCPCS: 36415; 80053; 82784; 83883; 84165; 85025

== ENCOUNTER 2020-12-29 03:26 | Outpatient (CLI) | payer MEDICARE, BC, SELFPAY ==
[2020-12-29 13:07] LABS: Absolute Basophil Count 0.02 10^3/uL (0.0-0.2); Absolute Eosinophil Count 0.12 10^3/uL (0.0-0.7); Absolute Monocyte Count 0.27 10^3/uL (0.1-0.8); Basophils % 0.7; Eosinophils % 4.1; HGB 12.2 g/dL (11.2-15.7); Lymphocytes % 37.8; MCH 33.2 pg (27.0-33.0); MCHC 33.9 % (32.0-36.0); MCV 97.8 fL (80-95); MPV 8.1 fL (8.0-11.0); Monocytes % 9.3; Neutrophils % 48.1; Nucleated RBC 0 %; Platelet Count 148 10^3/uL (130-400); RBC 3.68 10^6/uL (3.93-5.22); RDW 12.7 % (11.7-14.6); RDW-SD 45.5 fL; WBC 2.91 10^3/uL (4.4-10.8)
[2020-12-29 13:23] LABS: ALT 29 U/L (14-59); AST 27 U/L (15-37); Albumin 3.4 g/dL (3.4-5.0); Alkaline Phosphatase 62 U/L (46-116); Anion Gap 2.5 mmol/L (3-11); BUN 11 mg/dL (7-18); Bilirubin, Total 0.3 mg/dL (0.2-1.0); CO2 31.5 mmol/L (21.0-32.0); CREATININE 0.7 mg/dL (0.55-1.02); Calcium 8.8 mg/dL (8.5-10.1); Chloride 102 mmol/L (98-107); Glucose 89 mg/dL (74-106); Potassium 4.2 mmol/L (3.5-5.1); Sodium 136 mmol/L (136-145); Total Protein 7.8 g/dL (6.4-8.2)
[2020-12-30 09:24] LABS: IgA 343 mg/dL (85-499); IgG 1743 mg/dL (610-1,616); IgM 65 mg/dL (35-242); Kappa Free Light Chain 2.32 mg/dL (0.33-1.94); Lambda Free Light Chain 1.83 mg/dL (0.57-2.63)
[2020-12-30 13:27] LABS: Albumin 56.4 % (55.8-66.1); Total Protein 7.4 g/dL (6.3-8.2)
== END 2020-12-29 03:27 | disposition home or self-care (01) ==
LOC: LBO 03:26
PROVIDERS: PCP Family Medicine; Visit Provider Internal Medicine Hematology & Oncology
DX: C90.00 Multiple myeloma not having achieved remission (principal)
CPT/HCPCS: 36415; 80053; 82784; 83883; 84165; 85025

== ENCOUNTER 2021-01-26 02:40 | Outpatient (CLI) | payer MEDICARE, BC, SELFPAY ==
[2021-01-26 13:18] LABS: Abs Immature Grans 0.01 10^3/uL (0.0-0.06); Absolute Basophil Count 0.03 10^3/uL (0.0-0.2); Absolute Eosinophil Count 0.09 10^3/uL (0.0-0.7); Absolute Monocyte Count 0.28 10^3/uL (0.1-0.8); Basophils % 0.9; Eosinophils % 2.7; HGB 12.2 g/dL (11.2-15.7); Immature Grans % 0.3; Lymphocytes % 33.2; MCH 33.3 pg (27.0-33.0); MCHC 33.9 % (32.0-36.0); MCV 98.4 fL (80-95); MPV 8.4 fL (8.0-11.0); Monocytes % 8.5; Neutrophils % 54.4; Nucleated RBC 0 %; Platelet Count 160 10^3/uL (130-400); RBC 3.66 10^6/uL (3.93-5.22); RDW 12.7 % (11.7-14.6); RDW-SD 45.4 fL; WBC 3.31 10^3/uL (4.4-10.8)
[2021-01-26 13:46] LABS: ALT 26 U/L (14-59); AST 22 U/L (15-37); Albumin 3.6 g/dL (3.4-5.0); Alkaline Phosphatase 69 U/L (46-116); Anion Gap 5.3 mmol/L (3-11); BUN 12 mg/dL (7-18); Bilirubin, Total 0.4 mg/dL (0.2-1.0); CO2 30.7 mmol/L (21.0-32.0); CREATININE 0.9 mg/dL (0.55-1.02); Calcium 8.7 mg/dL (8.5-10.1); Chloride 102 mmol/L (98-107); Glucose 95 mg/dL (74-106); Potassium 4.3 mmol/L (3.5-5.1); Sodium 138 mmol/L (136-145); Total Protein 8.1 g/dL (6.4-8.2)
[2021-01-27 12:06] LABS: IgA 351 mg/dL (85-499); IgG 1731 mg/dL (610-1,616); IgM 71 mg/dL (35-242); Kappa Free Light Chain 2.42 mg/dL (0.33-1.94); Lambda Free Light Chain 1.75 mg/dL (0.57-2.63)
[2021-01-27 13:29] LABS: Albumin 54.5 % (55.8-66.1); Total Protein 7.8 g/dL (6.3-8.2)
== END 2021-01-26 02:41 | disposition home or self-care (01) ==
LOC: LBO 02:41
PROVIDERS: PCP Family Medicine; Visit Provider Internal Medicine Hematology & Oncology
DX: C90.00 Multiple myeloma not having achieved remission (principal)
CPT/HCPCS: 36415; 80053; 82784; 83883; 84165; 85025

== ENCOUNTER 2021-02-23 03:39 | Outpatient (CLI) | payer MEDICARE, BC, SELFPAY ==
[2021-02-23 13:18] LABS: Absolute Basophil Count 0.03 10^3/uL (0.0-0.2); Absolute Eosinophil Count 0.14 10^3/uL (0.0-0.7); Absolute Lymphocyte Count 1.31 10^3/uL (1.2-3.4); Absolute Monocyte Count 0.31 10^3/uL (0.1-0.8); Absolute Neutrophil Count 1.15 10^3/uL (1.2-6.7); Eosinophils % 4.8; HCT 33.1 % (36.0-46.0); HGB 11.3 g/dL (11.2-15.7); Lymphocytes % 44.6; MCH 33.1 pg (27.0-33.0); MCHC 34.1 % (32.0-36.0); MCV 97.1 fL (80-95); MPV 8.9 fL (8.0-11.0); Monocytes % 10.5; Neutrophils % 39.1; Nucleated RBC 0 %; Platelet Count 163 10^3/uL (130-400); RBC 3.41 10^6/uL (3.93-5.22); RDW 12.9 % (11.7-14.6); RDW-SD 45.9 fL; WBC 2.94 10^3/uL (4.4-10.8)
[2021-02-23 13:30] LABS: ALT 59 U/L (14-59); AST 42 U/L (15-37); Albumin 3.4 g/dL (3.4-5.0); Alkaline Phosphatase 73 U/L (46-116); Anion Gap 3.5 mmol/L (3-11); BUN 16 mg/dL (7-18); Bilirubin, Total 0.3 mg/dL (0.2-1.0); CO2 31.5 mmol/L (21.0-32.0); CREATININE 0.7 mg/dL (0.55-1.02); Calcium 8.4 mg/dL (8.5-10.1); Chloride 99 mmol/L (98-107); Glucose 95 mg/dL (74-106); Potassium 4.6 mmol/L (3.5-5.1); Sodium 134 mmol/L (136-145); Total Protein 7.7 g/dL (6.4-8.2)
[2021-02-24 09:52] LABS: IgA 339 mg/dL (85-499); IgG 1754 mg/dL (610-1,616); IgM 60 mg/dL (35-242); Kappa Free Light Chain 2.55 mg/dL (0.33-1.94); Lambda Free Light Chain 1.81 mg/dL (0.57-2.63)
[2021-02-24 14:22] LABS: Albumin 56.1 % (55.8-66.1); Total Protein 7.6 g/dL (6.3-8.2)
== END 2021-02-23 03:40 | disposition home or self-care (01) ==
LOC: LBO 03:39
PROVIDERS: PCP Family Medicine; Visit Provider Internal Medicine Hematology & Oncology
DX: C90.00 Multiple myeloma not having achieved remission (principal)
CPT/HCPCS: 36415; 80053; 82784; 83883; 84165; 85025

== ENCOUNTER 2021-03-23 03:26 | Outpatient (CLI) | payer MEDICARE, BC, SELFPAY ==
[2021-03-23 13:26] LABS: Absolute Basophil Count 0.02 10^3/uL (0.0-0.2); Absolute Eosinophil Count 0.08 10^3/uL (0.0-0.7); Absolute Monocyte Count 0.22 10^3/uL (0.1-0.8); Absolute Neutrophil Count 1.48 10^3/uL (1.2-6.7); Basophils % 0.7; Eosinophils % 2.8; HCT 35.4 % (36.0-46.0); HGB 12.4 g/dL (11.2-15.7); Lymphocytes % 37.9; MCH 33.8 pg (27.0-33.0); MCV 96.5 fL (80-95); MPV 8.9 fL (8.0-11.0); Monocytes % 7.6; Nucleated RBC 0 %; Platelet Count 150 10^3/uL (130-400); RBC 3.67 10^6/uL (3.93-5.22); RDW 12.2 % (11.7-14.6); RDW-SD 43.1 fL
[2021-03-23 13:39] LABS: ALT 19 U/L (14-59); AST 23 U/L (15-37); Albumin 3.5 g/dL (3.4-5.0); Alkaline Phosphatase 60 U/L (46-116); Anion Gap 5.2 mmol/L (3-11); BUN 10 mg/dL (7-18); Bilirubin, Total 0.5 mg/dL (0.2-1.0); CO2 27.8 mmol/L (21.0-32.0); CREATININE 0.6 mg/dL (0.55-1.02); Calcium 8.4 mg/dL (8.5-10.1); Chloride 100 mmol/L (98-107); Glucose 92 mg/dL (74-106); Potassium 4.1 mmol/L (3.5-5.1); Sodium 133 mmol/L (136-145); Total Protein 7.9 g/dL (6.4-8.2)
[2021-03-23 16:27] LABS: Calculated LDL 103 mg/dL (<100); Cholesterol 212 mg/dL (<200); HDL Cholesterol 48 mg/dL (40-60); Triglyceride 306 mg/dL (<150)
[2021-03-24 09:29] LABS: IgA 348 mg/dL (85-499); IgG 1870 mg/dL (610-1,616); IgM 78 mg/dL (35-242); Kappa Free Light Chain 2.57 mg/dL (0.33-1.94); Lambda Free Light Chain 1.78 mg/dL (0.57-2.63)
[2021-03-24 13:51] LABS: Albumin 54.1 % (55.8-66.1); Total Protein 7.9 g/dL (6.3-8.2)
== END 2021-03-23 03:27 | disposition home or self-care (01) ==
LOC: LBO 03:26
PROVIDERS: PCP Family Medicine; Visit Provider Internal Medicine Hematology & Oncology
DX: C90.00 Multiple myeloma not having achieved remission (principal); E78.79 Other disorders of bile acid and cholesterol metabolism
CPT/HCPCS: 36415; 80053; 80061; 82784; 83883; 84165; 85025

== ENCOUNTER 2021-03-26 05:38 | Inpatient (IN) | payer MEDICARE, BC, SELFPAY ==
[2021-03-26] VITALS (69 sets, daily range): BP systolic 114–182; BP diastolic 50–97; PULSE 66–87; RESP 9–25; TEMP 37.2–37.9; O2SAT 91–100
--- NOTE | 2021-03-26 05:45 | DI.CT_ITS ---
Exam(s) CT ABDOMEN PELVIS W EXAM: CT ABDOMEN PELVIS W CLINICAL HISTORY: abd pain and vomiting. TECHNIQUE: Imaging Protocol: Axial computed tomography images with coronal and sagittal reformatted images were created and reviewed CONTRAST MATERIAL: Intravenous: Omnipaque 350 Contrast volume:100 ml Oral: no COMPARISON: CT CT ABDOMEN PELVIS W from 11/23/2019 FINDINGS: ABDOMEN: Lung Bases: Mild respiratory motion. Liver: Normal density. No measurable mass. Gallbladder and biliary tract: Status post cholecystectomy. Mild intrahepatic biliary dilatation, un changed. Pancreas: Mildly atrophic. Normal density, no abnormal calcifications or inflammatory process. Spleen: Normal. Kidneys: Normal size, contour and axis. No radiodense stones or obstructive uropathy. No masses seen. Adrenal glands: No masses seen. Abdominal Aorta: Abdominal portion non-dilated. PELVIS: Bladder: No gross wall thickening. No calculi.No focal mass. Bowel: Multiple dilated loops of small bowel with transition point in the mid lower pelvis, adjacent to the urinary bladder.. Colon decompressed. Peritoneal cavity: No ascites, collection or mesenteric inflammatory response. No mesenteric mass is seen. Bones: Stable mixed lytic sclerotic lesion left ilium. Stable mild compression of the superior endpl ate of S1. Stable small areas lucency in the lumbar spine. Reproductive organs: Status post hysterectomy. Lymph nodes: Unremarkable. Impression: Partial small bowel obstruction with transition point in the lower pelvis. RADIATION DOSE DELIVERED: 790.71mGy.cm Total DLP DATA REPOSITORY: All CT scans at this facility are submitted to the National Radiology Data Registry (NRDR) Dose Index Registry (DIR) with the [employer] (ACR). RADIATION OPTIMIZATION: All CT scans at this facility use at least one of these dose optimization te chniques: automated exposure control; mA and/or kV adjustment per patient size (includes targeted exa ms where dose is matched to clinical indication); or iterative reconstruction.
--- NOTE | 2021-03-26 05:45 | RT.EKG_ITS ---
APPROVED REPORT Exam: Resting ECG Reason for Exam: weakness Patient Location: E HR:67 bpm ECG Measurements Heart Rate 67 AXIS TX 151 P 28 QRSd 97 QRS 13 QT 495 T -72 QTc 522 Conclusion Sinus rhythm...normal P axis, V-rate 60- 99 Nonspecific T abnormalities, diffuse leads...T <-0.10mV, ant/lat/inf Prolonged QT interval...QTc >500mS I have reviewed and interpreted ECG and agree with software generated interpretation.
--- NOTE | 2021-03-26 05:45 | ED.GENADUL_ITS ---
Discharge Plan Disposition Patient Disposition: [facility] INPATIENT Condition: Stable Discharge Details Clinical Impression: Small bowel obstruction Admit Date/Time: 03/26/21 09:40 Admit Provider: Macarena Castrejon Attending Provider: Macarena Castrejon Primary Care Provider: Reyna Abrams ED Provider: Marie Ryder Medical Decision Making <Juan A Payne MD - Last Filed: 03/26/21 07:49> Patient presenting with 24 hours of diffuse abdominal pain, vomiting and now generalized weakness. She is not febrile. Her abdomen is soft and nontender. She has had previous surgery including cholecystectomy and hysterectomy. Concern for SBO. IV established and laboratory studies sent. Fluids, ketorolac, ondansetron ordered. CT scan with IV contrast of the abdomen pelvis ordered. Records report history of iodine allergy but previous CT scan with contrast has been done. After discussion with diesel technology instructor patient will get a dose of Benadryl prior to scan. Patient's labs look ok with baseline neutropenia and slight bump in transaminases but normal bilirubin. Urine and CT scan pending. Medical Records Medical records reviewed: Yes I reviewed the patient's medical records. Lab Data Lab results reviewed: Yes I reviewed the patient's lab results. ECG Data Attestation: I personally reviewed and interpreted this ECG (s) as follows: Prior ECG tracings: available for review Interpretation: see EKG <Marie Ryder DO - Last Filed: 03/26/21 15:05> 0800 -- Please see Dr. Payne's note for initial presentation, exam and plan. Case endorsed to follow-up on urinalysis, CT and final disposition. Patient assessed by me at bedside. She is complaining of feeling extremely fatigued and weak. She appears moderately dehydrated with dry mucous membranes and appears generally weak. Her abdomen is soft and diffusely mildly tender. We will give additional IV fluids and a dose of morphine. Urinalysis notes ketones but no evidence of infection. CT reviewed and notes: IMPRESSION: 1. Low-grade partial small bowel obstruction with a transition point in the lower pelvis, at the bed of the resected uterus. Thickened loops of bowel in this area suggest post radiation enteritis/fibrosis. Underlying neoplasm is not excluded, but a mesenteric mass is not visualized. No evidence of perforation or pneumatosis. 2. Thickening of the gastric and duodenal katz that may be secondary to gastroduodenitis or less likely under distention. 3. Diffuse thickening of the colonic wall without inflammatory stranding. This may be secondary to colitis or under distention. 4. Stable lytic lesions of the left iliac bone and multiple vertebral bodies as described. Case discussed with Dr. Castrejon who accepts patient for admission. Would like an NG tube if pt has return of vomiting and a CA-125 sent. Admission orders placed. Discussed with nursing welding supervisor and currently no beds available but there are pending discharges. Will hold in the ED at this time. 1200 -- Bed ready and pt now being transferred to the floor. Her pain and nausea is improved and she had no further vomiting. Medical Records Medical records reviewed: Yes I reviewed the patient's medical records. Imaging Data Radiologic Study: Radiologist's impression: CT Abdomen And Pelvis With Contrast Exam date and time: 03/26/2021 5:58 AM Age: 70 years old Clinical indication: Abdominal pain; Generalized; Patient HX: Abdomen pain and vomiting. There is history of uterine and vaginal cancer. TECHNIQUE: Imaging protocol: Computed tomography of the abdomen and pelvis with contrast. Radiation optimization: All CT scans at this facility use at least one of these dose optimization techniques: automated exposure control; mA and/or kV adjustment per patient size (includes targeted exams where dose is matched to clinical indication); or iterative reconstruction. Contrast material: OMNI-PAQUE 350; Contrast volume: 84 ml; Contrast route: INTRAVENOUS (IV); COMPARISON: CT ABDOMEN PELVIS W 11/23/2019 3:09 PM FINDINGS: Lungs: The visualized lung hoover show mild bibasilar atelectasis. Liver: No hepatomegaly. There are no enhancing liver masses. Gallbladder and bile ducts: There has been a cholecystectomy. There is a mild, expected degree of intrahepatic and common bile duct dilation. Pancreas: Normal in size and homogeneous enhancement. No ductal dilation. Spleen: Normal. No splenomegaly. Adrenal glands: Normal. No mass. Kidneys and ureters: There is no hydronephrosis. No renal or obstructing ureteral calculi. Stomach and bowel: There are multiple mildly dilated loops of small bowel, some with air-fluid levels (series 5, image 504; series 6, image 35). There is a transition point in the lower pelvis, at the bed of the uterus, where there are some matted loops of bowel with thickened katz, perhaps related to post radiation enteritis/fibrosis (series 5, images 606-650; series 6, images 66-75). Metastatic disease is not excluded. There is no pneumatosis or gas in the portal vein. No evidence of perforation. There is gas and stool throughout the colon. There is diffuse thickening of the colonic wall without inflammatory stranding that may be secondary to colitis or under distention. There is thickening of the gastric and duodenal katz that may be secondary to gastroduodenitis, less likely, under distention. Appendix: No evidence of appendicitis. Intraperitoneal space: No free air. No significant fluid collection. Vasculature: There is mild atherosclerotic calcification of the abdominal aorta and its branches without aneurysm. Lymph nodes: No enlarged retroperitoneal or mesenteric lymph nodes. Urinary bladder: The bladder shows a normal contour and is free of calcific opacities. Reproductive: Prior hysterectomy. Bones/joints: Moderate levoconvex lumbar rotoscoliosis, unchanged. Expansile blastic and lytic lesion of the left iliac bone, unchanged from comparison. Lumbar vertebral body lucencies at multiple levels remains stable. Soft tissues: Normal. IMPRESSION: 1. Low-grade partial small bowel obstruction with a transition point in the lower pelvis, at the bed of the resected uterus. Thickened loops of bowel in this area suggest post radiation enteritis/fibrosis. Underlying neoplasm is not excluded, but a mesenteric mass is not visualized. No evidence of perforation or pneumatosis. 2. Thickening of the gastric and duodenal katz that may be secondary to gastroduodenitis or less likely under distention. 3. Diffuse thickening of the colonic wall without inflammatory stranding. This may be secondary to colitis or under distention. 4. Stable lytic lesions of the left iliac bone and multiple vertebral bodies as described. Lab Data Lab results reviewed: Yes I reviewed the patient's lab results. Labs: Laboratory Tests Range/Units 03/26/21 03/26/21 03/26/21 05:57 05:57 07:50 WBC (4.4-10.8) 10^3/uL 3.85 L RBC (3.93-5.22) 10^6/uL 4.26 Hgb (11.2-15.7) g/dL 14.5 D Hct (36.0-46.0) % 40.5 MCV (80-95) fL 95.1 H MCH (27.0-33.0) pg 34.0 H MCHC (32.0-36.0) % 35.8 RDW (11.7-14.6) % 12.2 Plt Count (130-400) 10^3/uL 198 MPV (8.0-11.0) fL 9.6 Immature Gran % 0.5 Neutrophils % 74.5 Lymphocytes % 15.8 Monocytes % 8.1 Eosinophils % 0.3 Basophils % 0.8 Nucleated RBC % % 0 Absolute Neutrophils (1.2-6.7) 10^3/uL 2.87 Absolute Lymphocytes (1.2-3.4) 10^3/uL 0.61 L Absolute Monocytes (0.1-0.8) 10^3/uL 0.31 Absolute Eosinophils (0.0-0.7) 10^3/uL 0.01 Absolute Basophils (0.0-0.2) 10^3/uL 0.03 Sodium (136-145) mmol/L 133 L Potassium (3.5-5.1) mmol/L 3.6 Chloride (98-107) mmol/L 94 L Carbon Dioxide (21.0-32.0) mmol/L 30.2 Anion Gap (3-11) mmol/L 8.8 BUN (7-18) mg/dL 13 Creatinine (0.55-1.02) mg/dL 0.8 Estimated GFR/1.73 m2 (mL/min/1.73m2) >= 60.00 Glucose (74-106) mg/dL 158 H Calcium (8.5-10.1) mg/dL 10.3 H Magnesium (1.8-2.4) mg/dL 2.0 Total Bilirubin (0.2-1.0) mg/dL 0.8 AST (15-37) U/L 173 H ALT (14-59) U/L 97 H Alkaline Phosphatase (46-116) U/L 86 Troponin I (<or=60) ng/L < 50 Total Protein (6.4-8.2) g/dL 9.0 H Albumin (3.4-5.0) g/dL 4.0 Lipase (73-393) U/L 40 Urine Color (Yellow) Yellow Urine Clarity (Clear) Sl Cloudy Urine pH (5-8) 8.5 H Ur Specific [place] (1.005-1.025) 1.020 Urine Protein (Negative) mg/dL Negative Urine Ketones (Negative) mg/dL Trace H Urine Blood (Negative) Negative Urine Nitrite (Negative) Negative Urine Bilirubin (Negative) Negative Urine Urobilinogen (Up TO 0.2) EU/dL 1.0 H Ur Leukocyte Esterase (Negative) Negative Urine Glucose (Negative) mg/dL Negative HPI <Juan A Payne MD - Last Filed: 03/26/21 07:49> General Mode of arrival: EMS . Date/Time Provider Initiated Documentation: 03/26/21 05:39 . Limitations to Documentation: no limitations . Information obtained by: patient, RN notes reviewed and old records reviewed . HPI Narrative: Patient presents to the ED by ambulance with vomiting and abdominal pain for the last 24 hours. Patient reports generalized abdominal pain with persistent vomiting and inability to keep anything down. She has had previous abdominal surgery. She denies having any chest pain, shortness of breath, back pain. She reports generalized weakness at this point. She denies fever or cough. She does report that she continues to make urine needs to urinate but was too weak to get to her bathroom. Related Data Home Medications Medication Instructions Recorded Confirmed morphine 30 mg PO Q4H PRN PRN 12/10/13 03/26/21 aspirin [Aspirin Low-Strength] 81 mg PO DAILY 08/19/14 03/26/21 valacyclovir 500 mg PO BID #60 tab 05/25/18 03/26/21 lenalidomide 5 mg capsule 5 mg PO DAILY 02/21/19 03/26/21 omeprazole 40 mg capsule,delayed 40 mg PO DAILY PRN #90 tab-cap 02/21/19 03/26/21 release gabapentin 300 mg capsule 600 mg PO BID #60 cap 03/11/21 03/26/21 morphine 60 mg PO BID 03/26/21 03/26/21 Previous Rx's Medication Instructions Recorded valacyclovir 500 mg PO BID #60 tab 05/25/18 gabapentin 300 mg capsule 600 mg PO BID #60 cap 03/11/21 Allergies Allergy/AdvReac Type Severity Reaction Status Date / Time iodine Allergy Intermediate Unverified 03/26/21 05:46 DUST Allergy Unknown Uncoded 03/26/21 05:46 MOLD AND SMUT Allergy Unknown Uncoded 03/26/21 05:46 General Stated Complaint: Nausea/Vomit/Diar RICKI: 3 Review of Systems <Juan A Payne MD - Last Filed: 03/26/21 07:49> Narrative: 01/15 Review of Systems completed and is negative except as stated above in HPI (Systems reviewed: Const, Eyes, ENT, Resp, CV, GI, , MSK, Skin, Neuro) PFSH <Juan A Payne MD - Last Filed: 03/26/21 07:49> All Active Problems Small bowel obstruction (Acute) Pain from bone metastases (Acute) maintained on morphine ER and IR; managed by [facility] heme onc. 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 04/2011 Hyst and BSO at [facility] Path= stage A1, Gr 11 Multiple myeloma in remission on revlimid Psoriasis Prabhu Barbour auricular syndrome Surgical History H/O breast biopsy Right, 1o'clock, 12cm from nipple, US-guided needle core biopsy: negative for malignancy. fibroadipose tissue with assoc hemorrhage. History of cholecystectomy S/P hysterectomy Family History Mother , AGE 84 No problems noted. Father , AGE 92 No problems noted. Sister , AGE 79 No problems noted. Sister No problems noted. Brother , AGE 68 Stomach cancer Brother No problems noted. Brother No problems noted. Brother No problems noted. Brother No problems noted. Son No problems noted. 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 Pets and animals: No Sexually active: No Do you think of yourself as: straight/heterosexual Current gender identity: female What is your relationship status?: How often do you talk on the phone with friends or family?: three or more times per week How often do you attend gnosticist or restorationism services?: decline to answer Do you belong to any clubs or organized social groups?: no Panel score (0-1 are the most socially isolated patients): 2 What type of physical activity do you participate in: running Duration: 30-45 minutes/day Frequency: 3-4 times per week Christianne/Moravian: Shinto Seatbelt use: always Drive intox or ride w/intox 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 Exam <Juan A Payne MD - Last Filed: 03/26/21 07:49> Narrative Exam Narrative: Const: WDWN female in NAD. HEENT: NC/AT. Normal facial exam. Eyes: Normal conjunctiva and sclera. Neck: Supple. Trachea midline. Lungs: Normal respiratory effort. Lungs are clear. Cor: RRR without murmur/gallop. Good radial pulses. GI: Soft. NT/ND. No guarding or rebound. Neuro: A+O x 3. Normal speech, mentation, gait. Cranial nerves II - XII grossly intact. No gross motor or sensory deficit. Ext: No C/C/E. Skin: Warm and dry without rash. Course <Juan A Payne MD - Last Filed: 03/26/21 07:49> Vital Signs Vital signs: Vital Signs Pulse 69 03/26/21 05:39 Respiratory Rate 18 03/26/21 05:39 Blood Pressure 182/82 H 03/26/21 05:39 Pulse Oximetry 99 03/26/21 05:39 Pulse 69 03/26/21 05:39 Respiratory Rate 18 03/26/21 05:39 Blood Pressure 182/82 H 03/26/21 05:39 Pulse Oximetry 99 03/26/21 05:39 Pain Level 10 03/26/21 05:39 Sign Out <Juan A Payne MD - Last Filed: 03/26/21 07:49> Sign Out Data: Sign Out Comment: pending official radiology read but does look like bowel obstruction on my review Last updated by Juan A Payne MD at 03/26/21 08:21
[2021-03-26 06:13] LABS: Abs Immature Grans 0.02 10^3/uL (0.0-0.06); Absolute Basophil Count 0.03 10^3/uL (0.0-0.2); Absolute Eosinophil Count 0.01 10^3/uL (0.0-0.7); Absolute Lymphocyte Count 0.61 10^3/uL (1.2-3.4); Absolute Monocyte Count 0.31 10^3/uL (0.1-0.8); Absolute Neutrophil Count 2.87 10^3/uL (1.2-6.7); Basophils % 0.8; Eosinophils % 0.3; HCT 40.5 % (36.0-46.0); HGB 14.5 g/dL (11.2-15.7); Immature Grans % 0.5; Lymphocytes % 15.8; MCHC 35.8 % (32.0-36.0); MCV 95.1 fL (80-95); MPV 9.6 fL (8.0-11.0); Monocytes % 8.1; Neutrophils % 74.5; Nucleated RBC 0 %; Platelet Count 198 10^3/uL (130-400); RBC 4.26 10^6/uL (3.93-5.22); RDW 12.2 % (11.7-14.6); RDW-SD 42.7 fL; WBC 3.85 10^3/uL (4.4-10.8)
[2021-03-26] MEDS: Ondansetron 4 MG/2 ML VIAL IVP (06:20)
[2021-03-26] MEDS: Ketorolac 15 MG/ML VIAL IVP ×3 (06:20→21:50)
[2021-03-26] MEDS: diphenhydrAMINE 50 MG/ML VIAL IVP (06:20)
[2021-03-26] MEDS: Lactated Ringers 1,000 ML 1000 ML IV (06:21)
[2021-03-26 06:30] LABS: ALT 97 U/L (14-59); AST 173 U/L (15-37); Alkaline Phosphatase 86 U/L (46-116); Anion Gap 8.8 mmol/L (3-11); BUN 13 mg/dL (7-18); Bilirubin, Total 0.8 mg/dL (0.2-1.0); CO2 30.2 mmol/L (21.0-32.0); CREATININE 0.8 mg/dL (0.55-1.02); Calcium 10.3 mg/dL (8.5-10.1); Chloride 94 mmol/L (98-107); Glucose 158 mg/dL (74-106); Lipase 40 U/L (73-393); Potassium 3.6 mmol/L (3.5-5.1); Sodium 133 mmol/L (136-145); Troponin I < 50 ng/L (<or=60)
[2021-03-26] MEDS: Omnipaque 350 MG/ML 100 ML BTL 84 ML IJ (07:24)
[2021-03-26 07:59] LABS: Bilirubin Negative (Negative); Blood Negative (Negative); Clarity Sl Cloudy (Clear); Glucose Negative (Negative); Ketones Trace mg/dL (Negative); Leukocyte Esterase Negative (Negative); Nitrite Negative (Negative); pH 8.5 (5-8)
[2021-03-26] MEDS: Lactated Ringers 500 ML IV (09:05)
[2021-03-26] MEDS: Normal Saline Flush 10 ML SYR IVP ×4 (09:05→21:50)
--- NOTE | 2021-03-26 09:45 | DI.VRAD_ITS ---
PROCEDURE INFORMATION: Exam: CT Abdomen And Pelvis With Contrast Exam date and time: 03/26/2021 5:58 AM Age: 70 years old Clinical indication: Abdominal pain; Generalized; Patient HX: Abdomen pain and vomiting. There is history of uterine and vaginal cancer. TECHNIQUE: Imaging protocol: Computed tomography of the abdomen and pelvis with contrast. Radiation optimization: All CT scans at this facility use at least one of these dose optimization techniques: automated exposure control; mA and/or kV adjustment per patient size (includes targeted exams where dose is matched to clinical indication); or iterative reconstruction. Contrast material: OMNI-PAQUE 350; Contrast volume: 84 ml; Contrast route: INTRAVENOUS (IV); COMPARISON: CT ABDOMEN PELVIS W 11/23/2019 3:09 PM FINDINGS: Lungs: The visualized lung hoover show mild bibasilar atelectasis. Liver: No hepatomegaly. There are no enhancing liver masses. Gallbladder and bile ducts: There has been a cholecystectomy. There is a mild, expected degree of intrahepatic and common bile duct dilation. Pancreas: Normal in size and homogeneous enhancement. No ductal dilation. Spleen: Normal. No splenomegaly. Adrenal glands: Normal. No mass. Kidneys and ureters: There is no hydronephrosis. No renal or obstructing ureteral calculi. Stomach and bowel: There are multiple mildly dilated loops of small bowel, some with air-fluid levels (series 5, image 504; series 6, image 35). There is a transition point in the lower pelvis, at the bed of the uterus, where there are some matted loops of bowel with thickened katz, perhaps related to post radiation enteritis/fibrosis (series 5, images 606-650; series 6, images 66-75). Metastatic disease is not excluded. There is no pneumatosis or gas in the portal vein. No evidence of perforation. There is gas and stool throughout the colon. There is diffuse thickening of the colonic wall without inflammatory stranding that may be secondary to colitis or under distention. There is thickening of the gastric and duodenal katz that may be secondary to gastroduodenitis, less likely, under distention. Appendix: No evidence of appendicitis. Intraperitoneal space: No free air. No significant fluid collection. Vasculature: There is mild atherosclerotic calcification of the abdominal aorta and its branches without aneurysm. Lymph nodes: No enlarged retroperitoneal or mesenteric lymph nodes. Urinary bladder: The bladder shows a normal contour and is free of calcific opacities. Reproductive: Prior hysterectomy. Bones/joints: Moderate levoconvex lumbar rotoscoliosis, unchanged. Expansile blastic and lytic lesion of the left iliac bone, unchanged from comparison. Lumbar vertebral body lucencies at multiple levels remains stable. Soft tissues: Normal. IMPRESSION: 1. Low-grade partial small bowel obstruction with a transition point in the lower pelvis, at the bed of the resected uterus. Thickened loops of bowel in this area suggest post radiation enteritis/fibrosis. Underlying neoplasm is not excluded, but a mesenteric mass is not visualized. No evidence of perforation or pneumatosis. 2. Thickening of the gastric and duodenal katz that may be secondary to gastroduodenitis or less likely under distention. 3. Diffuse thickening of the colonic wall without inflammatory stranding. This may be secondary to colitis or under distention. 4. Stable lytic lesions of the left iliac bone and multiple vertebral bodies as described. THIS REPORT CONTAINS FINDINGS THAT MAY BE CRITICAL TO PATIENT CARE. The findings were verbally communicated via telephone conference with Dr. Ryder at 9:23 AM EST on 03/26/2021. The findings were acknowledged and understood. Findings were discussed with Dr. Ryedr at 03/26/2021 9:38 AM EST. Dictated and Authenticated by: Gianfranco Gee MD. Ordering:ALLISON Velazco MD
[2021-03-26 09:58] LABS: Source Nasal/Nares
[2021-03-26] MEDS: ACETAMINOPHEN 1,000 MG/100 ML BTL 400 MG IVPB ×2 (10:02→18:08)
--- NOTE | 2021-03-26 11:01 | HPE_ITS ---
Date of service: 03/26/21 Time of Service: 11:01 Assessment and Plan Assessment and plan (1) Small bowel obstruction: Status: Acute Assessment and plan: 70 year old with a SBO. Discussed ewith patient plan for admission and bowel rest. Hopefully the SBO will resolve on its own if it doesn't she may need surgery. Plan for NG tube placement and NPO status IV fluids DVT prophilaxis with lovenox and SCD's Needs to get up and walk (2) Pain from bone metastases: Status: Acute Assessment and plan: will need high dosed of pain medications History of Present Illness History of Present Illness Chief Complaint: N/V Consults Consult date: 03/26/21 Requesting physician: Marie Ryder Narrative: Ms Haskins presented to the ED by ambulance with vomiting and abdominal pain for the last 24 hours. Patient reports generalized abdominal pain with persistent vomiting and inability to keep anything down. She has had previous abdominal surgery. She denies having any chest pain, shortness of breath, back pain. She reports generalized weakness at this point. She denies fever or cough. She does report that she continues to make urine needs to urinate but was too weak to get to her bathroom. PAst medical history is significant for Cholecystectomy and FLAVIA and oopherectomy for uterin cancer. She has bone mets and is on chronic pain medications. She had a normal BM yesterday and was passing flatus yesterday. NO Flatus today. CT scan reviewed and shows a small bowel obstruction in the pelvis. Review of Systems Constitutional Constitutional: Reports fatigue, Denies fever(s) and Denies headache(s) Eyes Eyes: Denies change in vision ENT Ears, Nose, Mouth, and Throat: Denies change in voice, Denies dysphagia and Denies headache(s) Cardiovascular Cardiovascular: Denies chest pain, Denies chest pain at rest, Denies irregular heart rhythm, Denies dyspnea and Denies dyspnea on exertion Respiratory Respiratory: Denies cough, Denies dyspnea and Denies dyspnea on exertion Gastrointestinal Gastrointestinal: Reports as per HPI, Reports system reviewed and no additional complaints, except as documented and Denies dysphagia Genitourinary Genitourinary: Reports system reviewed and no additional complaints, except as documented, Denies dysuria, Denies urinary incontinence and Denies urinary urgency Musculoskeletal Musculoskeletal: Reports system reviewed and no additional complaints, except as documented Integumentary/Breasts Skin/Breast: Reports system reviewed and no additional complaints, except as documented Neurologic Neurologic: Reports system reviewed and no additional complaints, except as documented and Denies headache(s) Psychiatric Psychiatric: Reports system reviewed and no additional complaints, except as documented Endocrine Endocrine: Reports system reviewed and no additional complaints, except as documented and Reports fatigue Hematologic/Lymphatic Hematologic/Lymphatic: Reports system reviewed and no additional complaints, except as documented, Denies easy bruising and Denies lymphadenopathy PFSH All Active Problems Small bowel obstruction (Acute) Pain from bone metastases (Acute) maintained on morphine ER and IR; managed by [facility] heme onc. 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 04/2011 Hyst and BSO at [facility] Path= stage A1, Gr 11 Multiple myeloma in remission on revlimid Psoriasis [place] auricular syndrome Surgical History H/O breast biopsy Right, 1o'clock, 12cm from nipple, US-guided needle core biopsy: negative for malignancy. fibroadipose tissue with assoc hemorrhage. History of cholecystectomy S/P hysterectomy Family History Mother , AGE 84 No problems noted. Father , AGE 92 No problems noted. Sister , AGE 79 No problems noted. Sister No problems noted. Brother , AGE 68 Stomach cancer Brother No problems noted. Brother No problems noted. Brother No problems noted. Brother No problems noted. Son No problems noted. 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 Pets and animals: No Sexually active: No Do you think of yourself as: straight/heterosexual Current gender identity: female What is your relationship status?: How often do you talk on the phone with friends or family?: three or more times per week How often do you attend druze or cheondoism services?: decline to answer Do you belong to any clubs or organized social groups?: no Panel score (0-1 are the most socially isolated patients): 2 What type of physical activity do you participate in: running Duration: 30-45 minutes/day Frequency: 3-4 times per week Christianne/Shinto: Alevism Seatbelt use: always Drive intox or ride w/intox patrol driver: No Do you feel safe at home: Yes Do you feel safe in your relationship?: Yes Victim of physical abuse: No Victim of emotional abuse: No Victim of sexual abuse: No Additional Social history: Originally from [facility]; moved to age 23. Meds Allergies and Home Medications Allergies Allergy/AdvReac Type Severity Reaction Status Date / Time iodine Allergy Intermediate Unverified 03/26/21 05:46 DUST Allergy Unknown Uncoded 03/26/21 05:46 MOLD AND SMUT Allergy Unknown Uncoded 03/26/21 05:46 Home Medications Medication Instructions Recorded Confirmed Type morphine 30 mg PO Q6H PRN 12/10/13 03/26/21 History morphine [Ms Contin] 30 mg PO TID 12/10/13 03/26/21 History aspirin [Aspirin Low-Strength] 81 mg PO DAILY 08/19/14 03/26/21 History valacyclovir 500 mg PO BID #60 tab 05/25/18 03/26/21 Rx lenalidomide 5 mg capsule 5 mg PO DAILY 02/21/19 03/26/21 History omeprazole 40 mg capsule,delayed 40 mg PO DAILY PRN #90 tab-cap 02/21/19 03/26/21 History release gabapentin 300 mg capsule 600 mg PO BID #60 cap 03/11/21 03/26/21 Rx Exam Const General: cooperative, comfortable and no acute distress Orientation: alert and oriented x3 HENMT Head: normocephalic and atraumatic Resp Effort & Inspection: normal respiratory effort Auscultation: clear to auscultation bilaterally Cardio Rate: regular rate Rhythm: regular rhythm Heart Sounds: no gallops, no murmurs and no rubs GI Inspection: normal to inspection and non-distended Palpation: soft, no hepatosplenomegaly and tender (mild diffuse tenderness without gaurding or rebound) Auscultation: hypoactive bowel sounds Results Labs Result diagrams: 03/26/21 05:57 03/26/21 05:57 Labs: Laboratory Results - last 24 hr 03/26/21 03/26/21 03/26/21 05:57 05:57 07:50 WBC 3.85 L RBC 4.26 Hgb 14.5 D Hct 40.5 MCV 95.1 H MCH 34.0 H MCHC 35.8 RDW 12.2 Plt Count 198 MPV 9.6 Immature Gran % 0.5 Neutrophils % 74.5 Lymphocytes % 15.8 Monocytes % 8.1 Eosinophils % 0.3 Basophils % 0.8 Nucleated RBC % 0 Absolute Neutrophils 2.87 Absolute Lymphocytes 0.61 L Absolute Monocytes 0.31 Absolute Eosinophils 0.01 Absolute Basophils 0.03 Sodium 133 L Potassium 3.6 Chloride 94 L Carbon Dioxide 30.2 Anion Gap 8.8 BUN 13 Creatinine 0.8 Estimated GFR/1.73 m2 >= 60.00 Glucose 158 H Calcium 10.3 H Magnesium 2.0 Total Bilirubin 0.8 AST 173 H ALT 97 H Alkaline Phosphatase 86 Troponin I < 50 Total Protein 9.0 H Albumin 4.0 Lipase 40 Urine Color Yellow Urine Clarity Sl Cloudy Urine pH 8.5 H Ur Specific [place] 1.020 Urine Protein Negative Urine Ketones Trace H Urine Blood Negative Urine Nitrite Negative Urine Bilirubin Negative Urine Urobilinogen 1.0 H Ur Leukocyte Esterase Negative Urine Glucose Negative COVID-19 Source 03/26/21 09:45 WBC RBC Hgb Hct MCV MCH MCHC RDW Plt Count MPV Immature Gran % Neutrophils % Lymphocytes % Monocytes % Eosinophils % Basophils % Nucleated RBC % Absolute Neutrophils Absolute Lymphocytes Absolute Monocytes Absolute Eosinophils Absolute Basophils Sodium Potassium Chloride Carbon Dioxide Anion Gap BUN Creatinine Estimated GFR/1.73 m2 Glucose Calcium Magnesium Total Bilirubin AST ALT Alkaline Phosphatase Troponin I Total Protein Albumin Lipase Urine Color Urine Clarity Urine pH Ur Specific [place] Urine Protein Urine Ketones Urine Blood Urine Nitrite Urine Bilirubin Urine Urobilinogen Ur Leukocyte Esterase Urine Glucose COVID-19 Source Nasal/Nares Last Vital Signs Temp 99.0 F 03/26/21 10:09 Pulse 75 03/26/21 10:01 Resp 13 03/26/21 10:01 BP 124/53 L 03/26/21 10:01 Pulse Ox 96 03/26/21 10:01
[2021-03-26] MEDS: Lactated Ringers 1,000 ML 125 ML IV ×3 (11:30→22:40)
[2021-03-26] MEDS: Enoxaparin 40 MG/0.4 ML SYR SC (12:49)
[2021-03-26 13:30] LABS: COVID-19 PCR Negative (Negative)
--- NOTE | 2021-03-26 14:51 | DI.RAD_ITS ---
Exam(s) XR ABDOMEN FLAT PLATE EXAM: 2D digital imaging was performed. CLINICAL HISTORY: confirmation of NG tube placement.. COMPARISON: CT CT ABDOMEN PELVIS W from 03/26/2021 TECHNIQUE: Supine views of the abdomen performed. FINDINGS: A nasogastric tube has been inserted which projects in the body of the stomach. A small amount of ai r is noted within the stomach. There is no significant small bowel distension. The visualized porti ons of the lung bases are clear. A small amount of contrast remains and present within the renal col lecting systems and urinary bladder. Right upper quadrant surgical clips are seen. Degenerative americo nges and scoliosis are noted in the lumbar spine. A of sclerotic lesion is again noted in the left i lium. IMPRESSION: Satisfactory placement of nasogastric tube. DATA REPOSITORY: RADIATION DOSE DELIVERED:
[2021-03-26] MEDS: Pantoprazole 40 MG VIAL IVP (15:44)
[2021-03-27] MEDS: ACETAMINOPHEN 1,000 MG/100 ML BTL 400 MG IVPB ×3 (02:07→17:52)
[2021-03-27 03:14] VITALS: BP 131/72; PULSE 73; RESP 18; TEMP 37.1; O2SAT 95
[2021-03-27] MEDS: Ketorolac 15 MG/ML VIAL IVP ×4 (03:44→21:20)
[2021-03-27] MEDS: Normal Saline Flush 10 ML SYR IVP ×3 (03:45→21:21)
[2021-03-27] MEDS: Lactated Ringers 1,000 ML 125 ML IV ×2 (06:00→23:23)
[2021-03-27 07:10] LABS: Absolute Basophil Count 0.01 10^3/uL (0.0-0.2); Absolute Eosinophil Count 0.06 10^3/uL (0.0-0.7); Absolute Monocyte Count 0.34 10^3/uL (0.1-0.8); Absolute Neutrophil Count 1.12 10^3/uL (1.2-6.7); Basophils % 0.4; Eosinophils % 2.5; HCT 29.3 % (36.0-46.0); MCH 33.2 pg (27.0-33.0); MCHC 34.1 % (32.0-36.0); MCV 97.3 fL (80-95); MPV 9.7 fL (8.0-11.0); Neutrophils % 46.1; Nucleated RBC 0 %; Platelet Count 148 10^3/uL (130-400); RBC 3.01 10^6/uL (3.93-5.22); RDW 12.5 % (11.7-14.6); RDW-SD 44.6 fL; WBC 2.43 10^3/uL (4.4-10.8)
[2021-03-27 07:34] LABS: ALT 50 U/L (14-59); AST 40 U/L (15-37); Albumin 2.7 g/dL (3.4-5.0); Alkaline Phosphatase 62 U/L (46-116); Anion Gap 2.8 mmol/L (3-11); BUN 13 mg/dL (7-18); Bilirubin, Total 0.7 mg/dL (0.2-1.0); CO2 35.2 mmol/L (21.0-32.0); CREATININE 0.9 mg/dL (0.55-1.02); Calcium 8.5 mg/dL (8.5-10.1); Chloride 102 mmol/L (98-107); Glucose 94 mg/dL (74-106); Potassium 3.2 mmol/L (3.5-5.1); Sodium 140 mmol/L (136-145); Total Protein 6.3 g/dL (6.4-8.2)
--- NOTE | 2021-03-27 10:23 | INITIAL_ITS ---
- If Service Date Differs Date of service: 03/27/21 Time of Service: 10:23 Care Management Initial Assess REASON FOR HOSPITALIZATION:: Small bowel obstruction and vomiting. PAST MEDICAL HISTORY/PAST SURGICAL HISTORY:: All Active Problems: Small bowel obstruction (Acute), Pain from bone metastases (Acute) - maintained on morphine ER and IR; managed by [facility] heme onc., Onychomycosis (Chronic), and GERD (gastroesophageal reflux disease) (Chronic). Medical History: Chronic hepatitis B (12/29/16), Disseminated zoster -. hospitalized at [facility], on lifelong valacyclovir, Malaria, Malignant neoplasm of uterus - 04/01/11 [facility]; ADENOCARCINOMA; ENDOMETROID TYPE ESTIMATED FIGO GRADE I. - 04/2011 Hyst and BSO at [facility] Path= stage A1, Gr 11, Multiple myeloma in remission - on revlimid, Psoriasis, and [place] auricular syndrome. Surgical History: H/O breast biopsy - Right, 1o'clock, 12cm from nipple, US-guided needle core biopsy: negative for malignancy. fibroadipose tissue with assoc hemorrhage., History of cholecystectomy, and S/P hysterectomy. PREVIOUS FUNCTIONAL STATUS/SOCIAL/FAMILY SUPPORTS:: Reyna lives in [place] with her , Mick. The couple has one son who resides in [place]. Reyna shares that in the summer she enjoys gardening and caring for her khanna. During the winter months she crochets and watches television. Reyna states her is very supportive of her. CURRENT FUNCTIONAL STATUS:: Reyna is sitting in a chair when CM comes to meet with her. Her is present in the room. Reyna is pleasant and easily engages in conversation. She states she was home alone when she began having abdominal pain and the pain became so severe she had to call the ambulance. She is feeling better today and hopes she will get to go home tomorrow. ADVANCE DIRECTIVES:: On file; Mick Haskins is appointed as Health Care Agent. Has patient been provided with info about the portal/API?: Yes Did the patient sign up for the portal?: No CODE STATUS:: Full Code INSURANCE COVERAGE / FINANCIAL ISSUES:: BCBS and Medicare. CURRENT HOME/COMMUNITY SERVICES/EQUIPMENT:: No home/community services or equipment. PRIMARY CARE PHYSICIAN:: Reyna Abrams MD ([facility]). POTENTIAL DISCHARGE NEEDS:: Follow up appointment with PCP and plan of care. PATIENT/FAMILY EDUCATION NEEDS:: Review discharge instructions, limitations, and follow up plan of care; discuss Ask Me Three and self-management. ANTICIPATED BARRIERS TO DISCHARGE:: No anticipated barriers to discharge at this time. TRANSPORTATION:: Via private vehicle with , Mick. PLAN:: Vi will likely be discharged home when medically cleared by provider. She will follow up with her PCP and plan of care as directed. Her , Mick, will drive her home via private vehicle when ready. CM will continue to support Vi and any discharge planning needs.
[2021-03-27 10:25] LABS: CA 125 6 U/mL (<30)
[2021-03-27] MEDS: POTASSIUM CHLORIDE 20 MEQ/100 ML BAG 50 MEQ IVPB (13:21)
--- NOTE | 2021-03-27 14:23 | CHAPLAIN ---
Reyna was resting in bed. She didn't look comfortable and told me she would like to see the doctor right away about getting the Ng tube out. I told her I would let the Clinical Regional Education Coordinator know, and did that. Reyna is expecting her in at 1 p.m. to visit. According to our [employer], Reyna is [employer].
--- NOTE | 2021-03-27 15:28 | W.PM.PROGNOT ---
Date of Service Date of service: 03/27/21 Time of Service: 12:28 Assessment and Plan Assessment and plan (1) Small bowel obstruction: Status: Acute Assessment and plan: -Clinically improving with multiple bowel movements and flatus -Minimal NG tube output today -4 hour clamp trial; if <250cc ok to remove and start sips of clears -Ambulation encouraged -Abdominal x-ray ordered for tomorrow -Labs reviewed, leukopenia from chemotherapy, electrolytes repleted (2) Pain from bone metastases: Status: Acute Assessment and plan: -Will resume PO medications when tolerating PO -Chronic narcotics likely contributing to poor bowel motility in addition to adhesions from previous surgery (3) GERD (gastroesophageal reflux disease): Status: Chronic Assessment and plan: -IV Protonix daily Qualifiers: Esophagitis presence: esophagitis presence not specified Qualified Code(s): K21.9 - Gastro-esophageal reflux disease without esophagitis Subjective Subjective Patient reports: feels better, flatus and bowel movement; denies nausea and vomiting Exam Const General: cooperative, healthy appearing, comfortable and no acute distress Orientation: alert, awake and oriented x3 HENMT Head: normocephalic and atraumatic Face and sinus: other (NG tube in place) Eyes General: appearance normal, both eyes and all related structures Resp Effort & Inspection: normal respiratory effort, no audible wheezes, no cough and no respiratory distress Cardio Rate: regular rate Rhythm: regular rhythm GI Inspection: normal to inspection and non-distended Palpation: soft, no guarding and tender (mild tenderness in the suprapubic area) Percussion: normal to percussion Skin General skin exam: no rashes or lesions noted Objective Last Vital Signs Temp 98.8 F 03/27/21 03:14 Pulse 73 03/27/21 03:14 Resp 18 03/27/21 03:14 BP 131/72 03/27/21 03:14 Pulse Ox 95 03/27/21 03:14 Laboratory Results - last 24 hr 03/27/21 03/27/21 06:10 06:10 WBC 2.43 L D RBC 3.01 L Hgb 10.0 L D Hct 29.3 L D MCV 97.3 H MCH 33.2 H MCHC 34.1 RDW 12.5 Plt Count 148 MPV 9.7 Immature Gran % 0.0 Neutrophils % 46.1 Lymphocytes % 37.0 Monocytes % 14.0 Eosinophils % 2.5 Basophils % 0.4 Nucleated RBC % 0 Absolute Neutrophils 1.12 L Absolute Lymphocytes 0.90 L Absolute Monocytes 0.34 Absolute Eosinophils 0.06 Absolute Basophils 0.01 Sodium 140 Potassium 3.2 L Chloride 102 Carbon Dioxide 35.2 H Anion Gap 2.8 L BUN 13 Creatinine 0.9 Estimated GFR/1.73 m2 >= 60.00 Glucose 94 D Calcium 8.5 Total Bilirubin 0.7 AST 40 H ALT 50 Alkaline Phosphatase 62 Total Protein 6.3 L Albumin 2.7 L
[2021-03-27] MEDS: Pantoprazole 40 MG VIAL IVP (16:07)
[2021-03-27 21:30] VITALS: BP 130/74; PULSE 74; RESP 18; TEMP 36.6; O2SAT 96
[2021-03-28] MEDS: ACETAMINOPHEN 1,000 MG/100 ML BTL 400 MG IVPB ×3 (00:54→17:45)
[2021-03-28] MEDS: Ketorolac 15 MG/ML VIAL IVP ×4 (03:39→21:46)
[2021-03-28 03:52] VITALS: BP 167/78; PULSE 75; RESP 18; TEMP 36.3; O2SAT 98
[2021-03-28 06:06] LABS: Abs Immature Grans 0.01 10^3/uL (0.0-0.06); Absolute Basophil Count 0.01 10^3/uL (0.0-0.2); Absolute Monocyte Count 0.29 10^3/uL (0.1-0.8); Absolute Neutrophil Count 1.29 10^3/uL (1.2-6.7); Basophils % 0.4; Eosinophils % 3.6; HCT 31.2 % (36.0-46.0); Immature Grans % 0.4; Lymphocytes % 39.3; MCHC 35.3 % (32.0-36.0); MCV 96.3 fL (80-95); MPV 8.7 fL (8.0-11.0); Monocytes % 10.4; Neutrophils % 45.9; Nucleated RBC 0 %; Platelet Count 140 10^3/uL (130-400); RBC 3.24 10^6/uL (3.93-5.22); RDW 12.7 % (11.7-14.6); RDW-SD 44.8 fL
[2021-03-28 06:28] LABS: ALT 44 U/L (14-59); AST 36 U/L (15-37); Alkaline Phosphatase 61 U/L (46-116); Anion Gap 5.8 mmol/L (3-11); BUN 8 mg/dL (7-18); Bilirubin, Total 0.6 mg/dL (0.2-1.0); CO2 31.2 mmol/L (21.0-32.0); CREATININE 0.7 mg/dL (0.55-1.02); Calcium 8.2 mg/dL (8.5-10.1); Chloride 100 mmol/L (98-107); Glucose 81 mg/dL (74-106); Magnesium 1.8 mg/dL (1.8-2.4); PHOSPHORUS 2.5 mg/dL (2.6-4.7); Sodium 137 mmol/L (136-145); Total Protein 6.9 g/dL (6.4-8.2)
[2021-03-28 06:45] LABS: Potassium 2.8 mmol/L (3.5-5.1)
--- NOTE | 2021-03-28 08:35 | DI.RAD_ITS ---
Exam(s) XR ABDOMEN FLAT UPRIGHT EXAM: XR ABDOMEN FLAT UPRIGHT CLINICAL HISTORY: SBO. TECHNIQUE: 2D digital imaging was performed. COMPARISON: CR XR ABDOMEN FLAT PLATE from 03/26/2021 FINDINGS: Surgical clips are again noted in the right upper quadrant. The NG tube is been removed. Stomach is not distended. Air is seen in small and large bowel loops. No obstruction pattern and no free intr aperitoneal air evident. Again noted is a mixed lytic and sclerotic lesion left iliac wing which is unchanged. IMPRESSION: DATA REPOSITORY: RADIATION DOSE DELIVERED:
[2021-03-28 08:42] VITALS: BP 130/80; PULSE 70; RESP 15; TEMP 37.1; O2SAT 98
--- NOTE | 2021-03-28 09:13 | DI.VRAD_ITS ---
PROCEDURE INFORMATION: Exam: XR Abdomen Exam date and time: 03/28/2021 12:00 AM Age: 70 years old Clinical indication: Other: Sbo TECHNIQUE: Imaging protocol: XR of the abdomen. Views: 2 Views. Upright and supine views. COMPARISON: CR XR ABDOMEN FLAT PLATE 26/03/2021 14:46 FINDINGS: Gastrointestinal tract: There is a slightly increased amount of bowel gas present mainly within the colon with a few scattered short air-fluid levels. Intraperitoneal space: Surgical clips are present in the right upper quadrant. Bones/joints: There is levoscoliosis of the thoracolumbar spine centered at L1. Mixed lytic and sclerotic lesion in the left iliac wing is stable compared to previous exam. IMPRESSION: Mild colonic ileus. Dictated and Authenticated by: Sergo Ashley MD. Ordering:CINDY Drake MD
[2021-03-28] MEDS: Lactated Ringers 1,000 ML 125 ML IV ×2 (09:22→16:15)
[2021-03-28] MEDS: Potassium Chloride Liquid 20 MEQ PKT 40 MEQ PO (09:23)
[2021-03-28] MEDS: POTASSIUM CHLORIDE 20 MEQ/100 ML BAG 50 MEQ IVPB (11:13)
--- NOTE | 2021-03-28 12:22 | W.PM.PROGNOT ---
Date of Service Date of service: 03/28/21 Time of Service: 10:22 Assessment and Plan Assessment and plan (1) Small bowel obstruction: Status: Acute Assessment and plan: -Clinically improving with multiple bowel movements and flatus -Advanced to regular diet, advised to choose light, bland foods -Will decrease IVF rate as PO intake improves -Ambulation encouraged -Abdominal x-ray reviewed, gaseous colon, improvement -Labs reviewed, leukopenia from chemotherapy, electrolytes repleted -Repeat BMP 12pm -Lovenox for DVT ppx (2) Pain from bone metastases: Status: Acute Assessment and plan: -Will resume PO narcotic medications when tolerating PO better -Chronic narcotics likely contributing to poor bowel motility in addition to adhesions from previous surgery (3) GERD (gastroesophageal reflux disease): Status: Chronic Assessment and plan: -Home PO Omeprazole resumed Qualifiers: Esophagitis presence: esophagitis presence not specified Qualified Code(s): K21.9 - Gastro-esophageal reflux disease without esophagitis Subjective Subjective Patient reports: feels better, tolerating liquids well, flatus and bowel movement; denies nausea and vomiting Exam Const General: cooperative, comfortable and no acute distress Resp Effort & Inspection: normal respiratory effort, no audible wheezes, no cough and no respiratory distress Cardio Rate: regular rate Rhythm: regular rhythm GI Inspection: normal to inspection and distended (mildly) Palpation: soft, no guarding and nontender Percussion: tympanic to percussion Skin General skin exam: no rashes or lesions noted Objective Last Vital Signs Temp 98.8 F 03/28/21 08:42 Pulse 70 03/28/21 08:42 Resp 15 03/28/21 08:42 BP 130/80 03/28/21 08:42 Pulse Ox 98 03/28/21 08:42 Laboratory Results - last 24 hr 03/26/21 03/28/21 03/28/21 05:55 05:44 05:44 WBC 2.80 L RBC 3.24 L Hgb 11.0 L Hct 31.2 L MCV 96.3 H MCH 34.0 H MCHC 35.3 RDW 12.7 Plt Count 140 MPV 8.7 Immature Gran % 0.4 Neutrophils % 45.9 Lymphocytes % 39.3 Monocytes % 10.4 Eosinophils % 3.6 Basophils % 0.4 Nucleated RBC % 0 Absolute Neutrophils 1.29 Absolute Lymphocytes 1.10 L Absolute Monocytes 0.29 Absolute Eosinophils 0.10 Absolute Basophils 0.01 Sodium 137 Potassium 2.8 L* Chloride 100 Carbon Dioxide 31.2 Anion Gap 5.8 BUN 8 Creatinine 0.7 Estimated GFR/1.73 m2 >= 60.00 Glucose 81 Calcium 8.2 L Phosphorus 2.5 L Magnesium 1.8 Total Bilirubin 0.6 AST 36 ALT 44 Alkaline Phosphatase 61 Total Protein 6.9 Albumin 3.0 L CA 125 Antigen 6
[2021-03-28 12:54] LABS: Anion Gap 7.6 mmol/L (3-11); BUN 8 mg/dL (7-18); CO2 28.4 mmol/L (21.0-32.0); CREATININE 0.7 mg/dL (0.55-1.02); Calcium 8.5 mg/dL (8.5-10.1); Chloride 100 mmol/L (98-107); Glucose 111 mg/dL (74-106); Potassium 3.8 mmol/L (3.5-5.1); Sodium 136 mmol/L (136-145)
[2021-03-28] MEDS: Enoxaparin 40 MG/0.4 ML SYR SC (13:24)
[2021-03-28 15:22] VITALS: BP 138/78; RESP 17; TEMP 37.1; O2SAT 94
[2021-03-28 16:21] VITALS: BP 152/78; PULSE 70; RESP 18; TEMP 36.5; O2SAT 100
[2021-03-28] MEDS: Pantoprazole 40 MG VIAL IVP (17:45)
[2021-03-28] MEDS: Normal Saline Flush 10 ML SYR IVP (21:47)
[2021-03-28 22:48] VITALS: BP 152/75; PULSE 56; RESP 18; TEMP 36.8; O2SAT 99
[2021-03-29] MEDS: ACETAMINOPHEN 1,000 MG/100 ML BTL 400 MG IVPB (00:18)
[2021-03-29] MEDS: Lactated Ringers 1,000 ML 125 ML IV ×2 (00:19→09:20)
[2021-03-29] MEDS: Normal Saline Flush 10 ML SYR IVP ×2 (00:26→02:57)
[2021-03-29] MEDS: Ketorolac 15 MG/ML VIAL IVP ×2 (02:56→09:20)
[2021-03-29 06:10] LABS: Absolute Basophil Count 0.02 10^3/uL (0.0-0.2); Absolute Lymphocyte Count 1.27 10^3/uL (1.2-3.4); Absolute Monocyte Count 0.26 10^3/uL (0.1-0.8); Absolute Neutrophil Count 1.36 10^3/uL (1.2-6.7); Basophils % 0.7; Eosinophils % 3.3; HCT 29.8 % (36.0-46.0); HGB 10.6 g/dL (11.2-15.7); Lymphocytes % 42.2; MCH 33.8 pg (27.0-33.0); MCHC 35.6 % (32.0-36.0); MCV 94.9 fL (80-95); MPV 9.8 fL (8.0-11.0); Monocytes % 8.6; Neutrophils % 45.2; Nucleated RBC 0 %; Platelet Count 159 10^3/uL (130-400); RBC 3.14 10^6/uL (3.93-5.22); RDW 12.5 % (11.7-14.6); WBC 3.01 10^3/uL (4.4-10.8)
[2021-03-29 06:20] LABS: Anion Gap 5.9 mmol/L (3-11); BUN 6 mg/dL (7-18); CO2 29.1 mmol/L (21.0-32.0); CREATININE 0.7 mg/dL (0.55-1.02); Calcium 8.2 mg/dL (8.5-10.1); Chloride 103 mmol/L (98-107); Glucose 89 mg/dL (74-106); Sodium 138 mmol/L (136-145)
[2021-03-29 07:31] VITALS: BP 163/81; PULSE 62; RESP 17; TEMP 36.3; O2SAT 100
[2021-03-29] MEDS: Potassium Chloride Liquid 20 MEQ PKT 40 MEQ PO (09:21)
[2021-03-29 11:59] VITALS: BP 134/68; PULSE 62; RESP 17; TEMP 37.1; O2SAT 98
[2021-03-29 15:36] VITALS: BP 157/85; PULSE 62; RESP 16; TEMP 37.1; O2SAT 100
--- NOTE | 2021-03-29 17:17 | DSE_ITS ---
Date of service: 03/29/21 Time of Service: 16:17 DS: Diagnosis Discharge Diagnosis (1) Small bowel obstruction: Status: Acute Asessment and Plan: -Resolved, tolerating regular diet having multiple bowel movements (2) Pain from bone metastases: Status: Acute (3) GERD (gastroesophageal reflux disease): Status: Chronic Discharge Plan Disposition Patient Disposition: HOME Condition: Stable Discharge Details Reason For Visit: Small Bowel Obstruction, Vomiting Admit Date/Time: 03/29/21 10:43 Admit Provider: Macarena Castrejon Attending Provider: Macarena Castrejon Primary Care Provider: Reyna Abrams Hospital Course Hospital Course: Patient was admitted to the hospital after being found to have a small bowel obstruction. She had an NG tube placed and had significant clinical improvement with resolution of symptoms within 48 hours. On Hospital day #3 she was deemed stable to be discharged home as she was tolerating adequate PO intake and continued to have bowel activity without nausea or vomiting. Home Meds and New Rx's Prescriptions: Continued gabapentin 300 mg capsule 600 mg PO BID Qty: 60 RF: 3 Revlimid 5 mg capsule 5 mg PO DAILY RF: 0 omeprazole 40 mg capsule,delayed release(DR/EC) 40 mg PO DAILY PRNQty: 90 RF: 4 morphine 30 MG tablet 30 mg PO Q4H PRN PRN (Reason: Pain) RF: 0 aspirin [Aspirin Low-Strength] 81 MG tablet,chewable 81 mg PO DAILY RF: 0 valacyclovir 500 mg tablet 500 mg PO BID Qty: 60 RF: 3 morphine 60 mg Tablet Extended Release 60 mg PO BID RF: 0 Discharge Instructions Instructions: Diet for Stomach Ulcers and Gastritis (GEN) Referrals: Macarena Castrejon MD [ [facility] STAFF PHYSICIAN] - None (call for follow up as needed) Activity:: Activity as Tolerated Equipment/Supplies:: No Equipment Needed Diet:: [place]/soft for 1 weeks Discharge Orders Discharge Orders: Discharge Order (Routine); Ordered 03/29/21 Ordered By: Noelle Du DS: Summary Time Spent with Patient providing and/or coordinating discharge services: Less than 30 minutes Status at Discharge Functional status at discharge: independent ambulation Overall status at discharge: patient is progressing back to baseline Mental Status: mental status grossly normal Speech and Movement: speech and movement normal Mood: congruent mood Affect: normal affect Exam Const General: cooperative, comfortable and no acute distress Resp Effort & Inspection: normal respiratory effort, no audible wheezes, no cough and no respiratory distress Cardio Rate: regular rate Rhythm: regular rhythm GI Inspection: normal to inspection and non-distended Palpation: soft, no guarding and nontender Percussion: normal to percussion Skin General skin exam: no rashes or lesions noted Psych Mental Status: mental status grossly normal Speech and Movement: speech and movement normal Mood: congruent mood Affect: normal affect DS: Data Vitals/I&O Vitals and I&O: Vital Signs Temperature 98.8 F 03/29/21 15:36 Temperature Source Tympanic 03/29/21 15:36 Pulse 62 03/29/21 15:36 Pulse Rhythm Regular 03/29/21 15:56 Pulse 74 03/26/21 12:01 Respiratory Rate 16 03/29/21 15:36 Respiratory Effort Non-Labored 03/29/21 15:56 Respiratory Depth Normal 03/29/21 15:56 Respiratory Pattern Normal 03/29/21 15:56 Blood Pressure 157/85 H 03/29/21 15:36 Blood Pressure Mean 73 03/26/21 12:01 Pulse Oximetry 100 03/29/21 15:36 Oxygen Delivery Method Room Air 03/29/21 15:36 Oxygen Flow Rate 0 03/29/21 15:36 Pain Level 0 03/29/21 15:36 Intake & Output 03/28/21 03/29/21 03/29/21 23:59 11:59 23:59 Intake Total 1560.417 / 2660.417 3500 / 4000 500 / 4000 Output Total 650 / 2800 2200 / 2700 500 / 2700 Balance 910.417 / -305.933 4300 / 1300 0 / 1300 Intake: IV 1160.417 / 2260.417 3100 / 3100 Oral 400 / 400 400 / 900 500 / 900 Output: Urine 650 / 2800 2200 / 2700 500 / 2700 Other: Urine Color Yellow Yellow Yellow Urine Appearance Clear Clear Clear Urine Odor None Stool Size Small Stool Characteristics Soft Liquid Voiding Methods Bedside Commode Data Completed and Pending Labs on day of discharge: Labs from last 24 hours 03/29/21 03/29/21 05:48 05:48 WBC 3.01 L RBC 3.14 L Hgb 10.6 L Hct 29.8 L MCV 94.9 MCH 33.8 H MCHC 35.6 RDW 12.5 Plt Count 159 MPV 9.8 Immature Gran % 0.0 Neutrophils % 45.2 Lymphocytes % 42.2 Monocytes % 8.6 Eosinophils % 3.3 Basophils % 0.7 Nucleated RBC % 0 Absolute Neutrophils 1.36 Absolute Lymphocytes 1.27 Absolute Monocytes 0.26 Absolute Eosinophils 0.10 Absolute Basophils 0.02 Sodium 138 Potassium 3.0 L Chloride 103 Carbon Dioxide 29.1 Anion Gap 5.9 BUN 6 L Creatinine 0.7 Estimated GFR/1.73 m2 >= 60.00 Glucose 89 Calcium 8.2 L PFSH All Active Problems (Updated 03/27/21 @ 15:31 by Noelle Du DO) Small bowel obstruction (Acute) Pain from bone metastases (Acute) maintained on morphine ER and IR; managed by [facility] [facility] heme onc. Onychomycosis (Chronic) GERD (gastroesophageal reflux disease) (Chronic) Medical History Chronic hepatitis B (12/29/16) Disseminated zoster hospitalized at [facility], on lifelong valacyclovir Malaria Malignant neoplasm of uterus 04/01/11 [facility]; ADENOCARCINOMA; ENDOMETROID TYPE ESTIMATED FIGO GRADE I. 04/2011 Hyst and BSO at [facility] [place] Path= stage A1, Gr 11 Multiple myeloma in remission on revlimid Psoriasis Prabhu Barbour auricular syndrome Surgical History H/O breast biopsy Right, 1o'clock, 12cm from nipple, US-guided needle core biopsy: negative for malignancy. fibroadipose tissue with assoc hemorrhage. History of cholecystectomy S/P hysterectomy Family History Mother , AGE 84 No problems noted. Father , AGE 92 No problems noted. Sister , AGE 79 No problems noted. Sister No problems noted. Brother , AGE 68 Stomach cancer Brother No problems noted. Brother No problems noted. Brother No problems noted. Brother No problems noted. Son No problems noted. 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 Pets and animals: No Sexually active: No Do you think of yourself as: straight/heterosexual Current gender identity: female What is your relationship status?: How often do you talk on the phone with friends or family?: three or more times per week How often do you attend worship or baptism services?: decline to answer Do you belong to any clubs or organized social groups?: no Panel score (0-1 are the most socially isolated patients): 2 What type of physical activity do you participate in: running Duration: 30-45 minutes/day Frequency: 3-4 times per week Christianne/Quaker: Synagogue Seatbelt use: always Drive intox or ride w/intox class c driver: No Do you feel safe at home: Yes Do you feel safe in your relationship?: Yes Victim of physical abuse: No Victim of emotional abuse: No Victim of sexual abuse: No Additional Social history: Originally from [facility]; [place] 23.
--- NOTE | 2021-03-29 17:27 | PDOC.CMDIS ---
- If Service Date Differs Date of service: 03/29/21 Time of Service: 17:28 LACE Index Scoring Tool - Questions: Length of Stay (in days): 3 Acuity (Admit via E.D.?): Yes Comorbidities: Metastatic Solid Tumor E.D. Visits: 1 - Answers: Total Score: 12 Risk of Readmission: High Risk Care Management Discharge Reason for Hospitalization: Small bowel obstruction and vomiting. Discharge Plan: Reyna returned home today with no new services. Her drove her home via private vehicle. She will follow up with her PCP and discharge plan of care. Patient/Family Education Needs: Review discharge instructions and limitations, discussion of self care needs including ask me three.
== END 2021-03-29 18:15 | disposition home or self-care (01) | DRG 389 ==
LOC: ER 09:50 → MS 12:13
PROVIDERS: Emergency Medicine; Surgery; Admitting Provider Surgery; Emergency Provider Physician Assistant; PCP Family Medicine; Visit Provider Surgery
DX: K56.609 Unspecified intestinal obstruction, unspecified as to partial versus complete obstruction (principal); C79.51 Secondary malignant neoplasm of bone; C90.01 Multiple myeloma in remission; B02.7 Disseminated zoster; K21.9 Gastro-esophageal reflux disease without esophagitis; G89.3 Neoplasm related pain (acute) (chronic); Z85.42 Personal history of malignant neoplasm of other parts of uterus; L40.9 Psoriasis, unspecified
CPT/HCPCS: 36415; 80048; 80053; 83690; 86304; 87635; 93005; 96361; 96374; 96375; 99220; 99225; 99238; 99285; J1650; 74018; 74019; 74177; 81003; 83735; 84100; 84484; 85025; 93010; G0378; J0131; J1200; J1885; J2270; J2405; J3480; J3490

== ENCOUNTER 2021-04-20 14:17 | Outpatient (CLI) | payer MEDICARE, BC, SELFPAY ==
[2021-04-20 14:02] LABS: Abs Immature Grans 0.01 10^3/uL (0.0-0.06); Absolute Basophil Count 0.01 10^3/uL (0.0-0.2); Absolute Eosinophil Count 0.16 10^3/uL (0.0-0.7); Absolute Lymphocyte Count 1.88 10^3/uL (1.2-3.4); Absolute Neutrophil Count 1.47 10^3/uL (1.2-6.7); Basophils % 0.3; Eosinophils % 4.2; HCT 34.1 % (36.0-46.0); HGB 11.8 g/dL (11.2-15.7); Immature Grans % 0.3; MCH 33.6 pg (27.0-33.0); MCHC 34.6 % (32.0-36.0); MCV 97.2 fL (80-95); MPV 9.1 fL (8.0-11.0); Monocytes % 7.8; Neutrophils % 38.4; Nucleated RBC 0 %; Platelet Count 178 10^3/uL (130-400); RBC 3.51 10^6/uL (3.93-5.22); RDW 12.9 % (11.7-14.6); RDW-SD 45.4 fL; WBC 3.84 10^3/uL (4.4-10.8)
[2021-04-20 14:14] LABS: ALT 20 U/L (14-59); AST 20 U/L (15-37); Albumin 3.4 g/dL (3.4-5.0); Alkaline Phosphatase 67 U/L (46-116); Anion Gap 4.2 mmol/L (3-11); BUN 11 mg/dL (7-18); Bilirubin, Total 0.3 mg/dL (0.2-1.0); CO2 30.8 mmol/L (21.0-32.0); CREATININE 0.6 mg/dL (0.55-1.02); Calcium 8.7 mg/dL (8.5-10.1); Chloride 100 mmol/L (98-107); Glucose 89 mg/dL (74-106); Potassium 4.2 mmol/L (3.5-5.1); Sodium 135 mmol/L (136-145); Total Protein 7.7 g/dL (6.4-8.2)
[2021-04-21 10:42] LABS: IgA 325 mg/dL (85-499); IgG 1688 mg/dL (610-1,616); IgM 69 mg/dL (35-242); Kappa Free Light Chain 2.06 mg/dL (0.33-1.94); Lambda Free Light Chain 1.51 mg/dL (0.57-2.63)
[2021-04-21 13:15] LABS: Total Protein 7.6 g/dL (6.3-8.2)
== END 2021-04-20 14:18 | disposition home or self-care (01) ==
LOC: LBO 14:24
PROVIDERS: PCP Family Medicine; Visit Provider Internal Medicine Hematology & Oncology
DX: C90.00 Multiple myeloma not having achieved remission (principal)
CPT/HCPCS: 36415; 80053; 82784; 83883; 84165; 85025

== ENCOUNTER 2021-05-18 01:43 | Outpatient (CLI) | payer MEDICARE, BC, SELFPAY ==
[2021-05-18 13:21] LABS: Absolute Basophil Count 0.03 10^3/uL (0.0-0.2); Absolute Eosinophil Count 0.12 10^3/uL (0.0-0.7); Absolute Lymphocyte Count 1.69 10^3/uL (1.2-3.4); Absolute Neutrophil Count 1.49 10^3/uL (1.2-6.7); Basophils % 0.8; Eosinophils % 3.3; HCT 35.5 % (36.0-46.0); HGB 12.1 g/dL (11.2-15.7); Lymphocytes % 46.6; MCH 33.7 pg (27.0-33.0); MCHC 34.1 % (32.0-36.0); MCV 98.9 fL (80-95); MPV 8.7 fL (8.0-11.0); Monocytes % 8.3; Nucleated RBC 0 %; Platelet Count 155 10^3/uL (130-400); RBC 3.59 10^6/uL (3.93-5.22); RDW 12.4 % (11.7-14.6); RDW-SD 45.2 fL; WBC 3.63 10^3/uL (4.4-10.8)
[2021-05-18 13:42] LABS: ALT 20 U/L (14-59); AST 24 U/L (15-37); Albumin 3.6 g/dL (3.4-5.0); Alkaline Phosphatase 57 U/L (46-116); BUN 12 mg/dL (7-18); Bilirubin, Total 0.4 mg/dL (0.2-1.0); CREATININE 0.7 mg/dL (0.55-1.02); Calcium 8.9 mg/dL (8.5-10.1); Chloride 100 mmol/L (98-107); Glucose 94 mg/dL (74-106); Potassium 4.2 mmol/L (3.5-5.1); Sodium 133 mmol/L (136-145); Total Protein 8.1 g/dL (6.4-8.2)
[2021-05-19 10:37] LABS: IgA 337 mg/dL (85-499); IgG 1878 mg/dL (610-1,616); IgM 73 mg/dL (35-242); Lambda Free Light Chain 1.78 mg/dL (0.57-2.63)
[2021-05-19 14:58] LABS: Albumin 54.9 % (55.8-66.1); Total Protein 7.4 g/dL (6.3-8.2)
== END 2021-05-18 01:44 | disposition home or self-care (01) ==
LOC: LBO 01:43
PROVIDERS: PCP Family Medicine; Visit Provider Nurse Practitioner Family
DX: C90.00 Multiple myeloma not having achieved remission (principal)
CPT/HCPCS: 36415; 80053; 82784; 83883; 84165; 85025

== ENCOUNTER 2021-06-15 01:59 | Outpatient (CLI) | payer MEDICARE, BC, SELFPAY ==
[2021-06-15 13:12] LABS: Abs Immature Grans 0.01 10^3/uL (0.0-0.06); Absolute Basophil Count 0.02 10^3/uL (0.0-0.2); Absolute Eosinophil Count 0.12 10^3/uL (0.0-0.7); Absolute Lymphocyte Count 1.62 10^3/uL (1.2-3.4); Absolute Monocyte Count 0.24 10^3/uL (0.1-0.8); Basophils % 0.5; Eosinophils % 3.1; HCT 36.5 % (36.0-46.0); HGB 12.4 g/dL (11.2-15.7); Immature Grans % 0.3; Lymphocytes % 42.5; MCV 97.1 fL (80-95); MPV 8.3 fL (8.0-11.0); Monocytes % 6.3; Neutrophils % 47.3; Nucleated RBC 0 %; Platelet Count 150 10^3/uL (130-400); RBC 3.76 10^6/uL (3.93-5.22); RDW 12.3 % (11.7-14.6); RDW-SD 43.6 fL; WBC 3.81 10^3/uL (4.4-10.8)
[2021-06-15 14:18] LABS: ALT 23 U/L (14-59); AST 21 U/L (15-37); Albumin 3.6 g/dL (3.4-5.0); Alkaline Phosphatase 60 U/L (46-116); Anion Gap 4.1 mmol/L (3-11); BUN 14 mg/dL (7-18); Bilirubin, Total 0.3 mg/dL (0.2-1.0); CO2 30.9 mmol/L (21.0-32.0); CREATININE 0.7 mg/dL (0.55-1.02); Calcium 8.7 mg/dL (8.5-10.1); Chloride 99 mmol/L (98-107); Glucose 92 mg/dL (74-106); Potassium 4.2 mmol/L (3.5-5.1); Sodium 134 mmol/L (136-145); Total Protein 7.7 g/dL (6.4-8.2)
[2021-06-16 10:30] LABS: IgA 335 mg/dL (85-499); IgG 1770 mg/dL (610-1,616); IgM 62 mg/dL (35-242); Kappa Free Light Chain 2.53 mg/dL (0.33-1.94); Lambda Free Light Chain 1.86 mg/dL (0.57-2.63)
[2021-06-16 13:41] LABS: Albumin 52.9 % (55.8-66.1); Total Protein 7.6 g/dL (6.3-8.2)
== END 2021-06-15 02:00 | disposition home or self-care (01) ==
LOC: LBO 01:59
PROVIDERS: Nurse Practitioner Family; PCP Family Medicine; Visit Provider Internal Medicine Hematology & Oncology
DX: C90.00 Multiple myeloma not having achieved remission (principal)
CPT/HCPCS: 36415; 80053; 82784; 83883; 84165; 85025

== ENCOUNTER 2021-07-13 02:55 | Outpatient (CLI) | payer MEDICARE, BC, SELFPAY ==
[2021-07-13 13:11] LABS: Abs Immature Grans 0.01 10^3/uL (0.0-0.06); Absolute Basophil Count 0.03 10^3/uL (0.0-0.2); Absolute Eosinophil Count 0.13 10^3/uL (0.0-0.7); Absolute Lymphocyte Count 1.36 10^3/uL (1.2-3.4); Absolute Monocyte Count 0.28 10^3/uL (0.1-0.8); Basophils % 0.8; Eosinophils % 3.3; HCT 35.4 % (36.0-46.0); HGB 12.1 g/dL (11.2-15.7); Immature Grans % 0.3; MCH 33.1 pg (27.0-33.0); MCHC 34.2 % (32.0-36.0); MCV 96.7 fL (80-95); MPV 8.8 fL (8.0-11.0); Neutrophils % 54.6; Nucleated RBC 0 %; Platelet Count 160 10^3/uL (130-400); RBC 3.66 10^6/uL (3.93-5.22); RDW 12.5 % (11.7-14.6); RDW-SD 44.3 fL
[2021-07-13 13:13] LABS: Absolute Neutrophil Count 2.18 10^3/uL (1.2-6.7)
[2021-07-13 13:27] LABS: ALT 24 U/L (14-59); AST 18 U/L (15-37); Albumin 3.4 g/dL (3.4-5.0); Alkaline Phosphatase 60 U/L (46-116); Anion Gap 5.1 mmol/L (3-11); BUN 10 mg/dL (7-18); Bilirubin, Total 0.3 mg/dL (0.2-1.0); CO2 28.9 mmol/L (21.0-32.0); CREATININE 0.7 mg/dL (0.55-1.02); Calcium 8.6 mg/dL (8.5-10.1); Chloride 100 mmol/L (98-107); Glucose 100 mg/dL (74-106); Potassium 4.3 mmol/L (3.5-5.1); Sodium 134 mmol/L (136-145); Total Protein 7.7 g/dL (6.4-8.2)
[2021-07-14 09:54] LABS: IgA 327 mg/dL (85-499); IgG 1686 mg/dL (610-1,616); IgM 61 mg/dL (35-242); Lambda Free Light Chain 1.94 mg/dL (0.57-2.63)
[2021-07-14 12:31] LABS: Albumin 54.3 % (55.8-66.1); Total Protein 7.2 g/dL (6.3-8.2)
== END 2021-07-13 02:56 | disposition home or self-care (01) ==
LOC: LBO 02:55
PROVIDERS: PCP Family Medicine; Visit Provider Internal Medicine Hematology & Oncology
DX: C90.00 Multiple myeloma not having achieved remission (principal)
CPT/HCPCS: 36415; 80053; 82784; 83883; 84165; 85025

== ENCOUNTER 2021-08-03 09:39 | Day surgery (SDC) | payer MEDICARE, BC, SELFPAY ==
[2021-08-03 09:56] VITALS: BP 125/78; PULSE 67; RESP 16; TEMP 36.3; O2SAT 100
[2021-08-03] MEDS: Tropicam./Phenyleph. (1/2.5%) 5 ML BTL OS ×3 (10:11→10:22)
--- NOTE | 2021-08-03 10:17 | ANES.PREOP_ITS ---
General Info Date of Service Date Performed: 08/03/21 Height: 4 ft 11 in Weight: 59.2 kg Body Mass Index (BMI): 26.3 Surgical Procedure: Operation Date: 08/03/21 11:25 Proposed Procedure Side Surgeon p Cataract Extraction with IOL Implant Left Mike Wells MD Meds Allergies and Home Medications Allergies Allergy/AdvReac Type Severity Reaction Status Date / Time iodine Allergy Intermediate Verified 08/03/21 09:51 DUST Allergy Unknown Uncoded 07/31/21 11:23 MOLD AND SMUT Allergy Unknown Uncoded 07/31/21 11:23 Home Medication Medication Instructions Recorded morphine 30 mg immediate release 30 mg PO Q4H PRN PRN 12/10/13 tablet aspirin 81 mg chewable tablet 81 mg PO DAILY 08/19/14 (Aspirin Low-Strength) valacyclovir 500 mg tablet 500 mg PO BID #60 tab 05/25/18 lenalidomide 5 mg capsule 5 mg PO DAILY 02/21/19 (Revlimid) omeprazole 40 mg capsule,delayed 40 mg PO DAILY PRN #90 tab-cap 02/21/19 release gabapentin 300 mg capsule 600 mg PO BID #60 cap 03/11/21 morphine 60 mg tablet,extended 60 mg PO BID 03/26/21 release Current Visit Medications: Current Medications Generic Name Dose Route Start Last Admin Trade Name Freq PRN Reason Stop Dose Admin Acetaminophen 1,000 mg 08/03/21 06:00 Acetaminophen 500 Mg Tab PO Q4H PRN PRN Miscellaneous Medication 0 ml 08/03/21 06:00 Prednisolone 1%, Moxifloxacin 0.5%, Nepafenac 0.1% 5ml Btl OS DIRECTED [facility] Miscellaneous Medication 0 ml 08/03/21 06:00 08/03/21 10:17 Tropicam./Phenyleph. (1/2.5%) 5 Ml Btl OS 1 drp DIRECTED YESSENIA Administration Tetracaine HCl 0 ml 08/03/21 06:00 Tetracaine 0.5% 4 Ml Btl OS DIRECTED YESSENIA PFSH Active Problems Active Problems: Problem Status Onset Code GERD (gastroesophageal reflux disease) K21.9 Onychomycosis B35.1 Pain from bone metastases G89.3, C79.51 Nuclear sclerotic cataract of left eye H25.12 Cortical cataract of left eye H26.9 Medical History Medical History (Updated 08/02/21 @ 11:48 by Mike Wells MD) Chronic hepatitis B (12/29/16) Disseminated zoster hospitalized at [facility], on lifelong valacyclovir Malaria Malignant neoplasm of uterus 04/01/11 [facility]; ADENOCARCINOMA; ENDOMETROID TYPE ESTIMATED FIGO GRADE I. 04/2011 Hyst and BSO at [facility] [place] Path= stage A1, Gr 11 Multiple myeloma in remission on revlimid Psoriasis Tarkio Barbour auricular syndrome Small bowel obstruction (03/2021) admitted, resolved without intervention Surgical History Surgical History (Updated 08/03/21 @ 09:51 by Timothy Deng) H/O breast biopsy Right, 1o'clock, 12cm from nipple, US-guided needle core biopsy: negative for malignancy. fibroadipose tissue with assoc hemorrhage. History of cholecystectomy Hx of cholecystectomy S/P hysterectomy Tobacco Smoking/Tobacco Use Status: Never Passive smoking exposure: Yes Second hand exposure: Yes Alcohol Alcohol Intake: never Substance Use Substance use: Never Vital Signs and Lab Results Vital Signs Most Recent Vital Signs in EMR: Most Recent Vital Signs Temp Pulse Resp BP Pulse Ox 36.3 C L 67 16 125/78 100 08/03/21 09:56 08/03/21 09:56 08/03/21 09:56 08/03/21 09:56 08/03/21 09:56 Lab Results Blood Type / Crossmatch: No Data to Display Complete Blood Count: White Blood Count 4.00 10^3/uL (4.4-10.8) L 07/13/21 13:05 07/13/21 Red Blood Count 3.66 10^6/uL (3.93-5.22) L 07/13/21 13:05 07/13/21 Hemoglobin 12.1 g/dL (11.2-15.7) 07/13/21 13:05 07/13/21 Hematocrit 35.4 % (36.0-46.0) L 07/13/21 13:05 07/13/21 Platelet Count 160 10^3/uL (130-400) 07/13/21 13:05 07/13/21 Complete Metabolic Panel: Sodium Level 134 mmol/L (136-145) L 07/13/21 13:05 07/13/21 Potassium Level 4.3 mmol/L (3.5-5.1) 07/13/21 13:05 07/13/21 Chloride Level 100 mmol/L (98-107) 07/13/21 13:05 07/13/21 Carbon Dioxide Level 28.9 mmol/L (21.0-32.0) 07/13/21 13:05 07/13/21 Blood Urea Nitrogen 10 mg/dL (7-18) 07/13/21 13:05 07/13/21 Creatinine 0.7 mg/dL (0.55-1.02) 07/13/21 13:05 07/13/21 Estimated GFR/1.73 m2 >= 60.00 (mL/min/1.73m2) 07/13/21 13:05 07/13/21 Calcium Level 8.6 mg/dL (8.5-10.1) 07/13/21 13:05 07/13/21 Albumin 3.4 g/dL (3.4-5.0) 07/13/21 13:05 07/13/21 Glucose Level 100 mg/dL (74-106) 07/13/21 13:05 07/13/21 Liver Function Panel: Alanine Aminotransferase (ALT/SGPT) 24 U/L (14-59) 07/13/21 13:05 07/13/21 Aspartate Amino Transf (AST/SGOT) 18 U/L (15-37) 07/13/21 13:05 07/13/21 Coagulation Panel: No Data to Display Cardiac Panel: No Data to Display Arterial Blood Gas: No Data to Display Venous Blood Gas: No Data to Display Pancreas Panel: No Data to Display Thyroid Panel: No Data to Display Infectious Disease: No Data to Display Blood Cultures: No Data to Display Toxicology Panel: No Data to Display Anesthesia Assessment and Plan Anesthesia History Personal History: No History of Anesthesia Complications Family History: No Family History of Anesthesia Complications Exercise Tolerance Exercise Tolerance: Metabolic Equivalents>4 Cardiac & Pulmonary Exam Cardiac Exam: Normal S1/S2 Heart Sounds Pulmonary Exam: Clear Bilateral Breath Sounds Implantable Cardiac Device Does patient have a Pacemaker or an ICD?: No Airway Exam Known Difficult Airway: No Mallampati Class: 2 Mouth Opening: Normal (> 3cm) Thyromental Distance: Greater than 3 cm Neck Range of Motion: Full ROM Neck Circumference: Normal Teeth Condition: Removable Dentures/Plates Upper ASA Classification ASA Score: ASA 3 Emergency Case?: No NPO Status NPO Status: NPO Clears >2 hours, Solids >8 hours Anesthesia Plan Resuscitation Status: Full Code Anesthesia Technique: MAC Anesthesia Airway Planned: Natural Airway Monitors Used: Standard Monitors
[2021-08-03 10:21] VITALS: BMI 26.3
[2021-08-03] MEDS: Triamcinolone 40 MG/ML VIAL (10:51)
[2021-08-03] MEDS: Tetracaine 0.5% 4 ML BTL (10:52)
[2021-08-03] MEDS: Balanced Salt Soln.-PLUS 500 ML BAG (10:52)
[2021-08-03] MEDS: Duovisc Viscoelastic System EACH 1 EACH (10:53)
[2021-08-03] MEDS: Lidocaine 2% Jelly 6 ML SYR (10:54)
[2021-08-03] MEDS: Povidone-Iodine Ophth 30 ML BTL (10:55)
[2021-08-03 11:19] VITALS: BP 125/74; PULSE 66; RESP 16; TEMP 36.2; O2SAT 100
--- NOTE | 2021-08-03 11:23 | W.PM.DSUDISC ---
Discharge Plan Disposition Patient Disposition: HOME Condition: Good Discharge Details Attending Provider: Mike Wells Primary Care Provider: Reyna Abrams Home Meds and New Rx's Prescriptions: No Action gabapentin 300 mg capsule 600 mg PO BID Qty: 60 3RF lenalidomide [Revlimid] 5 mg capsule 5 mg PO DAILY 0RF omeprazole 40 mg capsule,delayed release(DR/EC) 40 mg PO DAILY PRNQty: 90 4RF Label Comments: 04/09/16 takes prn. mdh morphine 30 MG tablet 30 mg PO Q4H PRN PRN (Reason: Pain) 0RF aspirin [Aspirin Low-Strength] 81 MG tablet,chewable 81 mg PO DAILY 0RF Label Comments: 09-21-17 pt reports that she takes this med every other day. hb valacyclovir 500 mg tablet 500 mg PO BID Qty: 60 3RF morphine 60 mg Tablet Extended Release 60 mg PO BID 0RF Discharge Instructions Stand Alone Forms: Post-op Block Cataract, Post-op Topical Cataract, Press Ganey (DSU) Discharge Orders Discharge Orders: Discharge Order (Routine); Ordered 08/03/21 Ordered By: Mike Wells DS: Diagnosis Discharge Diagnosis (1) Nuclear sclerotic cataract of left eye: Status: Resolved (2) Cortical cataract of left eye: Status: Resolved
--- NOTE | 2021-08-03 11:24 | W.PM.OP ---
Date of service: 08/03/21 Time of Service: 11:24 Operative Note Operative Note DATE OF PROCEDURE: 08/03/21 PRE-OP DIAGNOSIS: Nuclear/cortical cataract, left POST-OP DIAGNOSIS: same PROCEDURE: Cataract extraction using phacoemulsification with intraocular lens implant, left eye SURGEON: Mike Wells ANESTHESIA TYPE: Local By Surgeon and MAC Refer to Anesthesia Record PATHOLOGY: none sent COMPLICATIONS: None Patient was transported to: same day Patient's condition: stable Implants: Luis and Luis / [employer] Tecnis [id number] Indications: Progressive decreased vision due to cataract, left eye Procedure Description: CATARACT SURGERY OPERATIVE REPORT PREOPERATIVE DIAGNOSIS: 1. Nuclear/cortical cataract, left eye POSTOPERATIVE DIAGNOSIS: Same OPERATION: 1. Cataract extraction using phacoemulsification with posterior chamber intraocular lens implant, left eye. IOL: IOL Pipe Fitter Supervisor Maintenance/Model: Luis & Luis / IVAN Tecnis [id number] IOL Power: + 17.5 diopters IOL Serial Number: [id number] Optic Diameter: 6.0 mm Haptic/Overall Diameter: 13.0 mm PHACO INFO: Mando[employer]leon Vision System with OZil and Active [employer]uidics Cumulative Dispersed Energy (CDE): 14.96 seconds SURGEON: Mike Wells MD, DREW ANESTHESIA: Monitored A [facility] (MAC), with local sub-tenon's anesthetic infiltration COMPLICATIONS: None SPECIMENS: None INDICATIONS FOR PROCEDURE: The patient is a 70-year-old lady with history of diminished visual acuity in both eyes secondary to the development of bilateral nuclear/cortical cataract. She is significantly symptomatic that she desires cataract surgery and attempt to improve and maximize her vision. In addition, she has an epiretinal membrane in the left eye with distortion of the foveal depression, and is at higher risk for postoperative steroid macular edema. The option of cataract surgery was offered to the patient and she wished to proceed. PROCEDURE: The correct surgical eye was identified and marked as the left eye and the pupil was dilated in the preoperative area using mydriatics and cycloplegics. The dilated pupil size was 7.0 mm. She elected to proceed without oral sedation. The patient was brought to the operating room where cardiopulmonary monitoring was instituted and surgical time-out was performed, confirming the correct operative eye and IOL power. Topical anesthesia was administered and ophthalmic povidone-iodine 5% was instilled into the conjunctival fornices. Lidocaine gel was applied to the cornea and the luis f-ocular area was prepped with Betadine 10% solution and draped in the usual sterile fashion for intraocular surgery, including an aperture drape. A Tegaderm transparent film dressing was cut in half and used to cover the lashes and lid margins. Care was taken to sequester the lashes and lid margins under the Tegaderm dressing. A lid speculum was placed between the lids of the operative eye and the Mando LuxOR Revalia operating microscope was maneuvered into position. Martita scissors were then used to make a conjunctival buttonhole approximately 6mm posterior to the limbus in the inferonasal quadrant. Blunt dissection was carried out to expose bare sclera, and a blunt-tipped sub-tenon?s anesthesia cannula was introduced and passed posteriorly along the globe where non-preserved plain lidocaine was injected into posterior sub-Tenon?s space. A sideport knife was used to make a paracentesis port superiorly/superiortemporally. Intraocular phenylephrine/lidocaine was injected int the anterior chamber.. The anterior chamber was filled with viscoelastic. A 2.4mm keratome knife was used to create a half-thickness groove at the limbus and then to construct a three-plane near-clear corneal tunnel extending 2.0mm into clear cornea at the 3:00 position. A flap was raised on the anterior capsule and capsulorhexis forceps were used to complete a continuous curvilinear capsulorhexis of 5.0 mm. Balanced salt solution was then used to perform cortical cleaving hydrodissection and nuclear hydrodelineation until the lens could be freely rotated within the capsular bag. The lens nucleus was then disassembled and removed within the capsular bag and iris plane using phacoemulsification. Residual cortical material was removed using the 45-degree angled silicone I/A tip with 0.3mm port. The posterior capsule was carefully polished to remove as much residual lens epithelial cells as safely possible. The capsular bag was then inflated and the anterior chamber deepened with viscoelastic. The lens implant described above was inserted into the capsular bag using the IVAN [place] Injector. A Kuglen hook was used to dial the IOL into position. Residual viscoelastic was then removed first from posterior to the IOL, then from the anterior chamber using the I/A handpiece. The lens implant was noted to center nicely within the capsular bag. The incisions were stromally hydrated, and the anterior chamber was reformed using BSS. Then 0.5cc of moxifloxacin 1.0mg/ml were injected into the capsular bag and anterior chamber. The incisions were checked with a Weck spear and found to be secure. Several drops of ophthalmic povidone-iodine 5% were then applied to the eye followed by two drops of Imprimis combination prednisolone/moxifloxacin/nepafenac solution. The drapes were removed and a clear plastic protective eye shield was placed over the eye. The patient was then returned to Same Day Surgery in stable condition.
--- NOTE | 2021-08-03 11:37 | W.ANESPOSTOP ---
Postoperative Evaluation Date, Time and Location Date Performed: 08/03/21 Time Performed: 11:30 Patient Location: Day Surgery Unit Vital Signs Most Recent Imported Vital Signs: Most Recent Vital Signs Temp Pulse Resp BP Pulse Ox 36.2 C L 66 16 125/74 100 08/03/21 11:19 08/03/21 11:19 08/03/21 11:19 08/03/21 11:19 08/03/21 11:19 Pain Score Most Recent Pain Score: Most Recent Pain Score Pain Level 0 08/03/21 11:19 Assessment Mental Status: Awake (Alert & Oriented to Patient Baseline) Airway and Respiratory Function: Patent airway with normal (patient baseline) respiratory exam Cardiovascular Function: Hemodynamically Stable Hydration Status: Adequately Hydrated Nausea & Vomiting: No Nausea or Vomiting Pain: Pt. Denies Any Pain Peripheral Nerve Block: Patient did not receive a nerve block
== END 2021-08-03 11:48 | disposition home or self-care (01) ==
PROVIDERS: PCP Family Medicine; Visit Provider Ophthalmology
PROC: (CPT 66984; principal; 2021-08-03 11:15)
DX: H25.12 Age-related nuclear cataract, left eye (principal); C90.01 Multiple myeloma in remission
CPT/HCPCS: 66984; V2632

== ENCOUNTER 2021-08-10 01:42 | Outpatient (CLI) | payer MEDICARE, BC, SELFPAY ==
[2021-08-10 13:19] LABS: Absolute Basophil Count 0.03 10^3/uL (0.0-0.2); Absolute Eosinophil Count 0.06 10^3/uL (0.0-0.7); Absolute Lymphocyte Count 1.64 10^3/uL (1.2-3.4); Absolute Monocyte Count 0.34 10^3/uL (0.1-0.8); Absolute Neutrophil Count 1.61 10^3/uL (1.2-6.7); Basophils % 0.8; Eosinophils % 1.6; HCT 35.6 % (36.0-46.0); HGB 12.3 g/dL (11.2-15.7); Lymphocytes % 44.6; MCH 32.5 pg (27.0-33.0); MCHC 34.6 % (32.0-36.0); MCV 94 fL (80-95); MPV 8.9 fL (8.0-11.0); Monocytes % 9.2; Neutrophils % 43.8; Platelet Count 190 10^3/uL (130-400); RBC 3.78 10^6/uL (3.93-5.22); RDW-SD 44.5 fL; WBC 3.68 10^3/uL (4.4-10.8)
[2021-08-10 14:16] LABS: ALT 92 U/L (14-59); AST 40 U/L (15-37); Albumin 3.5 g/dL (3.4-5.0); Alkaline Phosphatase 88 U/L (46-116); Anion Gap 4.7 mmol/L (3-11); BUN 14 mg/dL (7-18); Bilirubin, Total 0.4 mg/dL (0.2-1.0); CO2 29.3 mmol/L (21.0-32.0); CREATININE 0.8 mg/dL (0.55-1.02); Calcium 8.5 mg/dL (8.5-10.1); Chloride 98 mmol/L (98-107); Glucose 83 mg/dL (74-106); Potassium 4.2 mmol/L (3.5-5.1); Sodium 132 mmol/L (136-145); Total Protein 7.7 g/dL (6.4-8.2)
[2021-08-11 10:03] LABS: IgA 370 mg/dL (85-499); IgG 1821 mg/dL (610-1,616); IgM 70 mg/dL (35-242); Kappa Free Light Chain 2.47 mg/dL (0.33-1.94); Lambda Free Light Chain 1.61 mg/dL (0.57-2.63)
[2021-08-11 13:15] LABS: Albumin 53.8 % (55.8-66.1); Albumin g/dL 4.1 g/dL (3.6-5.2); Total Protein 7.7 g/dL (6.3-8.2)
== END 2021-08-10 01:43 | disposition home or self-care (01) ==
PROVIDERS: PCP Family Medicine; Visit Provider Nurse Practitioner Family
DX: C90.00 Multiple myeloma not having achieved remission (principal)
CPT/HCPCS: 36415; 80053; 82784; 83883; 84165; 85025

== ENCOUNTER 2021-08-17 08:13 | Day surgery (SDC) | payer MEDICARE, BC, SELFPAY ==
[2021-08-17] MEDS: Tropicam./Phenyleph. (1/2.5%) 5 ML BTL ×3 (08:44→08:58)
[2021-08-17 08:45] VITALS: BP 119/60; PULSE 65; RESP 16; TEMP 36.3; O2SAT 99
--- NOTE | 2021-08-17 09:22 | ANES.PREOP_ITS ---
General Info Date of Service Date Performed: 08/17/21 Height: 4 ft 11 in Weight: 58.7 kg Body Mass Index (BMI): 26.1 Surgical Procedure: Operation Date: 08/17/21 09:55 Proposed Procedure Side Surgeon p Cataract Extraction with IOL Implant Right Mike Wells MD Meds Allergies and Home Medications Allergies Allergy/AdvReac Type Severity Reaction Status Date / Time iodine Allergy Intermediate Verified 08/17/21 08:41 DUST Allergy Unknown Uncoded 08/17/21 08:41 MOLD AND SMUT Allergy Unknown Uncoded 08/17/21 08:41 Home Medication Medication Instructions Recorded morphine 30 mg immediate release 30 mg PO Q4H PRN PRN Pain 12/10/13 tablet aspirin 81 mg chewable tablet 81 mg PO DAILY 08/19/14 (Aspirin Low-Strength) valacyclovir 500 mg tablet 500 mg PO BID #60 tabs 05/25/18 lenalidomide 5 mg capsule 5 mg PO DAILY 02/21/19 (Revlimid) omeprazole 40 mg capsule,delayed 40 mg PO DAILY PRN #90 tab-caps 02/21/19 release gabapentin 300 mg capsule 600 mg PO BID #60 caps 03/11/21 morphine 60 mg tablet,extended 60 mg PO BID 03/26/21 release PFSH Active Problems Active Problems: Problem Status Onset Code GERD (gastroesophageal reflux disease) K21.9 Onychomycosis B35.1 Pain from bone metastases G89.3, C79.51 Nuclear sclerotic cataract of left eye H25.12 Cortical cataract of left eye H26.9 Nuclear sclerotic cataract of right eye H25.11 Cortical cataract of right eye H26.9 Medical History Medical History Chronic hepatitis B (12/29/16) Disseminated zoster hospitalized at [facility], on lifelong valacyclovir Malaria Malignant neoplasm of uterus 04/01/11 [facility]; ADENOCARCINOMA; ENDOMETROID TYPE ESTIMATED FIGO GRADE I. 04/2011 [place]st [place] [facility] Path= stage A1, Gr 11 Multiple myeloma in remission on revlimid Psoriasis Prabhu Barbour auricular syndrome Small bowel obstruction (03/2021) admitted, resolved without intervention Surgical History Surgical History (Updated 08/17/21 @ 08:37 by Areli Kirk) H/O breast biopsy Right, 1o'clock, 12cm from nipple, US-guided needle core biopsy: negative for malignancy. fibroadipose tissue with assoc hemorrhage. History of cholecystectomy Hx of cataract surgery Hx of cholecystectomy S/P hysterectomy Tobacco Smoking/Tobacco Use Status: Never Passive smoking exposure: Yes Second hand exposure: Yes Alcohol Alcohol Intake: never Substance Use Substance use: Never Substance use type: does not use Vital Signs and Lab Results Vital Signs Most Recent Vital Signs in EMR: Most Recent Vital Signs Temp Pulse Resp BP Pulse Ox 36.3 C L 65 16 119/60 99 08/17/21 08:45 08/17/21 08:45 08/17/21 08:45 08/17/21 08:45 08/17/21 08:45 Lab Results Blood Type / Crossmatch: No Data to Display Complete Blood Count: White Blood Count 3.68 10^3/uL (4.4-10.8) L 08/10/21 13:05 Red Blood Count 3.78 10^6/uL (3.93-5.22) L 08/10/21 13:05 Hemoglobin 12.3 g/dL (11.2-15.7) 08/10/21 13:05 Hematocrit 35.6 % (36.0-46.0) L 08/10/21 13:05 Platelet Count 190 10^3/uL (130-400) 08/10/21 13:05 Complete Metabolic Panel: Sodium Level 132 mmol/L (136-145) L 08/10/21 13:05 Potassium Level 4.2 mmol/L (3.5-5.1) 08/10/21 13:05 Chloride Level 98 mmol/L (98-107) 08/10/21 13:05 Carbon Dioxide Level 29.3 mmol/L (21.0-32.0) 08/10/21 13:05 Blood Urea Nitrogen 14 mg/dL (7-18) 08/10/21 13:05 Creatinine 0.8 mg/dL (0.55-1.02) 08/10/21 13:05 Estimated GFR/1.73 m2 >= 60.00 (mL/min/1.73m2) 08/10/21 13:05 Calcium Level 8.5 mg/dL (8.5-10.1) 08/10/21 13:05 Albumin 3.5 g/dL (3.4-5.0) 08/10/21 13:05 Glucose Level 83 mg/dL (74-106) 08/10/21 13:05 Liver Function Panel: Alanine Aminotransferase (ALT/SGPT) 92 U/L (14-59) H 08/10/21 1 3:05 Aspartate Amino Transf (AST/SGOT) 40 U/L (15-37) H 08/10/21 13: 05 Coagulation Panel: No Data to Display Cardiac Panel: No Data to Display Arterial Blood Gas: No Data to Display Venous Blood Gas: No Data to Display Pancreas Panel: No Data to Display Thyroid Panel: No Data to Display Infectious Disease: No Data to Display Blood Cultures: No Data to Display Toxicology Panel: No Data to Display Anesthesia Assessment and Plan Anesthesia History Personal History: No History of Anesthesia Complications Family History: No Family History of Anesthesia Complications Exercise Tolerance Exercise Tolerance: Metabolic Equivalents>4 Pertinent Negatives Pertinent Negatives: No Symptoms of GERD, No Major Cardiovascular Symptoms or Complaints, No Major Pulmonary Symptoms or Complaints and No History of CVA/TIA Cardiac & Pulmonary Exam Cardiac Exam: Normal S1/S2 Heart Sounds Pulmonary Exam: Clear Bilateral Breath Sounds Implantable Cardiac Device Does patient have a Pacemaker or an ICD?: No Airway Exam Known Difficult Airway: No Mallampati Class: 2 Mouth Opening: Normal (> 3cm) Thyromental Distance: Greater than 3 cm Neck Range of Motion: Full ROM Neck Circumference: Normal Teeth Condition: Removable Dentures/Plates Upper ASA Classification ASA Score: ASA 2 Emergency Case?: No NPO Status NPO Status: NPO Clears >2 hours, Solids >8 hours Anesthesia Plan Resuscitation Status: Full Code Anesthesia Technique: MAC Anesthesia Airway Planned: Natural Airway Monitors Used: Standard Monitors
[2021-08-17 09:24] VITALS: BMI 26.1
[2021-08-17] MEDS: Balanced Salt Soln.-PLUS 500 ML BAG (09:42)
[2021-08-17] MEDS: Triamcinolone 40 MG/ML VIAL (09:42)
[2021-08-17] MEDS: Duovisc Viscoelastic System EACH 1 EACH (09:43)
[2021-08-17] MEDS: Lidocaine 2% Jelly 6 ML SYR (09:43)
[2021-08-17] MEDS: Povidone-Iodine Ophth 30 ML BTL (09:44)
[2021-08-17] MEDS: Tetracaine 0.5% 4 ML BTL (09:45)
--- NOTE | 2021-08-17 10:10 | W.PM.DSUDISC ---
Discharge Plan Disposition Patient Disposition: HOME Condition: Good Discharge Details Attending Provider: Mike Wells Primary Care Provider: Reyna Abrams Home Meds and New Rx's Prescriptions: No Action gabapentin 300 mg capsule 600 mg PO BID Qty: 60 3RF lenalidomide [Revlimid] 5 mg capsule 5 mg PO DAILY omeprazole 40 mg capsule,delayed release(DR/EC) 40 mg PO DAILY PRNQty: 90 Label Comments: 04/09/16 takes prn. mdh morphine 30 MG tablet 30 mg PO Q4H PRN PRN (Reason: Pain) aspirin [Aspirin Low-Strength] 81 MG tablet,chewable 81 mg PO DAILY Label Comments: 09-21-17 pt reports that she takes this med every other day. hb valacyclovir 500 mg tablet 500 mg PO BID Qty: 60 3RF morphine 60 mg Tablet Extended Release 60 mg PO BID Discharge Instructions Stand Alone Forms: Post-op Topical Cataract, Press Ganey (DSU) Discharge Orders Discharge Orders: Discharge Order (Routine); Ordered 08/17/21 Ordered By: Mike Wells DS: Diagnosis Discharge Diagnosis (1) Nuclear sclerotic cataract of right eye: Status: Resolved (2) Cortical cataract of right eye: Status: Resolved
--- NOTE | 2021-08-17 10:11 | ROE_ITS ---
Date of service: 08/17/21 Time of Service: 09:11 Operative Note Operative Note DATE OF PROCEDURE: 08/17/21 PRE-OP DIAGNOSIS: Nuclear/cortical cataract, right eye POST-OP DIAGNOSIS: same PROCEDURE: Cataract extraction using phacoemulsification with intraocular lens implant, right eye SURGEON: Mike Wells ANESTHESIA TYPE: Local By Surgeon and MAC Refer to Anesthesia Record ESTIMATED BLOOD LOSS: 0 PATHOLOGY: none sent COMPLICATIONS: None Patient was transported to: same day Patient's condition: stable Implants: Luis & Luis/IVAN Tecnis [id number] Indications: Progressive visual loss due to cataract, right eye Procedure Description: CATARACT SURGERY OPERATIVE REPORT PREOPERATIVE DIAGNOSIS: 1. Nuclear/cortical cataract, right eye POSTOPERATIVE DIAGNOSIS: Same OPERATION: 1. Cataract extraction using phacoemulsification with posterior chamber intraocular lens implant, right eye. IOL: IOL Finisher Card Tender/Model: Luis & Luis / IVAN Tecnis [id number] IOL Power: + 18.0 diopters IOL Serial Number: [id number] Optic Diameter: 6.0mm Haptic/Overall Diameter: 13.0mm PHACO INFO: MandoCopinyurion Vision System with OZil and Active Fluidics Cumulative Dispersed Energy (CDE): 10.30 seconds SURGEON: Mike Wells MD, DREW ANESTHESIA: Monitored Anesthesia Care (MAC), with local sub-tenon's anesthetic infiltration COMPLICATIONS: None SPECIMENS: None INDICATIONS FOR PROCEDURE: The patient is a 70-year-old lady with history of diminished visual acuity in both eyes secondary to the development of bilateral nuclear/cortical cataract. She also has a history of bilateral epiretinal membranes. She has already undergone cataract surgery in the left eye and is doing well postoperatively. She now presents for cataract surgery in the right eye. PROCEDURE: The correct surgical eye was identified and marked as the right eye and the pupil was dilated in the preoperative area using mydriatics and cycloplegics. The dilated pupil size was 7.0 mm. She elected to proceed without sedation. The patient was brought to the operating room where cardiopulmonary monitoring was instituted and surgical time-out was performed, confirming the correct operative eye and IOL power. Topical anesthesia was administered and ophthalmic povidone-iodine 5% was instilled into the conjunctival fornices. Lidocaine gel was applied to the cornea and the luis f-ocular area was prepped with Betadine 10% solution and draped in the usual sterile fashion for intraocular surgery, including an aperture drape. A Tegaderm transparent film dressing was cut in half and used to cover the lashes and lid margins. Care was taken to sequester the lashes and lid margins under the Tegaderm dressing. A lid speculum was placed between the lids of the operative eye and the Mando LuxOR Revalia operating microscope was maneuvered into position. Exposure was challenging due to blepharospasm and a very narrow palpebral fissure. Martita scissors were then used to make a conjunctival buttonhole approximately 6mm posterior to the limbus in the inferonasal quadrant. Blunt dissection was carried out to expose bare sclera, and a blunt-tipped sub-tenon?s anesthesia cannula was introduced and passed posteriorly along the globe where non-p reserved plain lidocaine was injected into posterior sub-Tenon?s space. A sideport knife was used to make a paracentesis port inferotemporally. Intraocular phenylephrine/lidocaine was injected into the anterior chamber. The anterior chamber was filled with viscoelastic. A 2.4mm keratome knife was used to construct a 2-plane near-clear corneal tunnel extending 2.0mm into clear cornea superiortemporally. A flap was raised on the anterior capsule and capsulorhexis forceps were used to complete a continuous curvilinear capsulorhexis of 5.0 mm. Balanced salt solution was then used to perform cortical cleaving hydrodissection and nuclear hydrodelineation until the lens could be freely rotated within the capsular bag. The lens nucleus was then disassembled and removed within the capsular bag and iris plane using phacoemulsification. Residual cortical material was removed using the I/A handpiece. The posterior capsule was carefully polished to remove as much residual lens epithelial cells as safely possible. The capsular bag was then inflated and the anterior chamber deepened with viscoelastic. The lens implant described above was inserted into the capsular bag using the IVAN [place] Injector. A Kuglen hook was used to dial the IOL into position. Residual viscoelastic was then removed first from posterior to the IOL, then from the anterior chamber using the I/A handpiece. The lens implant was noted to center nicely within the capsular bag. The incisions were stromally hydrated, and the anterior chamber was reformed using BSS. Then 0.5cc of moxifloxacin 1.0mg/ml were injected into the capsular bag and anterior chamber. The incisions were checked with a Weck spear and found to be secure. At the conclusion of the procedure, Kenalog 20 mg in 0.5 cc were injected into posterior sub-tenon's space using the sub-tenon's anesthesia injection cannula. Several drops of ophthalmic povidone-iodine 5% were then applied to the eye followed by two drops of Imprimis combination prednisolone/moxifloxacin/nepafenac solution. The drapes were removed and a clear plastic protective eye shield was placed over the eye. The patient was then returned to Same Day Surgery in stable condition.
--- NOTE | 2021-08-17 10:12 | W.ANESPOSTOP ---
Postoperative Evaluation Date, Time and Location Date Performed: 08/17/21 Time Performed: 10:12 Patient Location: Day Surgery Unit Vital Signs Most Recent Imported Vital Signs: Most Recent Vital Signs Temp Pulse Resp BP Pulse Ox 36.3 C L 65 16 119/60 99 08/17/21 08:45 08/17/21 08:45 08/17/21 08:45 08/17/21 08:45 08/17/21 08:45 Most Recent Manually Entered Vital Signs: Adult Blood Pressure: 132/69 Heart Rate: 78 Respirations: 10 Oxygen Saturation (%): 98 Temperature (C): 36.1 C Pain Score (0-10 Scale): 0 Pain Score Most Recent Pain Score: Most Recent Pain Score Pain Level 0 08/17/21 08:45 Assessment Mental Status: Awake (Alert & Oriented to Patient Baseline) Airway and Respiratory Function: Patent airway with normal (patient baseline) respiratory exam Cardiovascular Function: Hemodynamically Stable Hydration Status: Adequately Hydrated Nausea & Vomiting: No Nausea or Vomiting Pain: Pt. Denies Any Pain Peripheral Nerve Block: Patient did not receive a nerve block
[2021-08-17 10:13] VITALS: BP 132/69; PULSE 78; RESP 10; TEMPC 36.1; O2SAT 98
[2021-08-17 10:17] VITALS: BP 132/69; PULSE 65; RESP 16; TEMP 36.1; O2SAT 100
== END 2021-08-17 10:39 | disposition home or self-care (01) ==
PROVIDERS: PCP Family Medicine; Visit Provider Ophthalmology
PROC: (CPT 66984; principal; 2021-08-17 09:45)
DX: H25.11 Age-related nuclear cataract, right eye (principal); K21.9 Gastro-esophageal reflux disease without esophagitis; C90.01 Multiple myeloma in remission
CPT/HCPCS: 66984; V2632

== ENCOUNTER 2021-09-07 03:48 | Outpatient (CLI) | payer MEDICARE, BC, SELFPAY ==
[2021-09-07 13:11] LABS: Absolute Basophil Count 0.02 10^3/uL (0.0-0.2); Absolute Eosinophil Count 0.12 10^3/uL (0.0-0.7); Absolute Lymphocyte Count 1.22 10^3/uL (1.2-3.4); Absolute Monocyte Count 0.31 10^3/uL (0.1-0.8); Absolute Neutrophil Count 1.54 10^3/uL (1.2-6.7); Basophils % 0.6; Eosinophils % 3.7; HCT 34.8 % (36.0-46.0); MCHC 34.5 % (32.0-36.0); MCV 96 fL (80-95); Monocytes % 9.7; Platelet Count 162 10^3/uL (130-400); RBC 3.64 10^6/uL (3.93-5.22); RDW 13.1 % (11.7-14.6); RDW-SD 46.2 fL; WBC 3.21 10^3/uL (4.4-10.8)
[2021-09-07 13:42] LABS: ALT 35 U/L (14-59); Albumin 3.4 g/dL (3.4-5.0); BUN 12 mg/dL (7-18); Calcium 9.2 mg/dL (8.5-10.1); Chloride 98 mmol/L (98-107); Sodium 134 mmol/L (136-145)
[2021-09-07 13:44] LABS: AST 40 U/L (15-37); Alkaline Phosphatase 59 U/L (46-116); Anion Gap 6.2 mmol/L (3-11); Bilirubin, Total 0.4 mg/dL (0.2-1.0); CO2 29.8 mmol/L (21.0-32.0); CREATININE 0.7 mg/dL (0.55-1.02); Glucose 99 mg/dL (74-106); Potassium 4.2 mmol/L (3.5-5.1); Total Protein 7.8 g/dL (6.4-8.2)
[2021-09-08 09:13] LABS: IgA 351 mg/dL (85-499); IgG 1646 mg/dL (610-1,616); IgM 61 mg/dL (35-242); Kappa Free Light Chain 2.34 mg/dL (0.33-1.94); Lambda Free Light Chain 1.65 mg/dL (0.57-2.63)
[2021-09-08 15:33] LABS: Albumin 52.8 % (55.8-66.1); Albumin g/dL 3.9 g/dL (3.6-5.2); Total Protein 7.3 g/dL (6.3-8.2)
== END 2021-09-07 03:49 | disposition home or self-care (01) ==
LOC: LBO 03:48
PROVIDERS: Nurse Practitioner Family; PCP Family Medicine; Visit Provider Internal Medicine Hematology & Oncology
DX: C90.00 Multiple myeloma not having achieved remission (principal)
CPT/HCPCS: 36415; 80053; 82784; 83883; 84165; 85025

== ENCOUNTER 2021-09-23 11:53 | Observation (INO) | payer MEDICARE, BC, SELFPAY ==
[2021-09-23] VITALS (39 sets, daily range): BP systolic 122–174; BP diastolic 67–133; PULSE 57–72; RESP 6–20; TEMP 36.3–37.5; O2SAT 94–100
--- NOTE | 2021-09-23 11:45 | RT.EKG_ITS ---
APPROVED REPORT Exam: Resting ECG Reason for Exam: abd pain Patient Location: E HR:65 bpm ECG Measurements Heart Rate 65 AXIS WY 150 P 34 QRSd 105 QRS 7 QT 438 T 18 QTc 455 Conclusion Sinus rhythm...normal P axis, V-rate 60- 99 Probable left ventricular hypertrophy...multiple LVH criteria
--- NOTE | 2021-09-23 11:45 | DI.CT_ITS ---
Exam(s) CT ABDOMEN PELVIS WO EXAM: CT ABDOMEN PELVIS WO CLINICAL HISTORY: BLoating, abd pain, nausea. TECHNIQUE: Imaging Protocol: Axial computed tomography images with coronal and sagittal reformatted images were created and reviewed. COMPARISON: CT CT ABDOMEN PELVIS W from 03/26/2021 FINDINGS: ABDOMEN: Lung Bases: Normal where visualized. Coronary artery calcifications are present. Liver: Normal density. No measurable mass. Gallbladder and biliary tract: Status post cholecystectomy. There is stable prominence of the extrah epatic bile ducts likely reflecting the post cholecystectomy state. Pancreas: Normal density, no abnormal calcifications or inflammatory process. Spleen: Normal. Kidneys: Normal size, contour and axis.No radiodense stones or obstructive uropathy. No masses seen. Adrenal glands: No mass is seen. Lymph nodes: Within normal limits. Abdominal Aorta: Abdominal portion non-dilated. Atherosclerosis is present. PELVIS: Bladder:Symmetric distention, no gross wall thickening. Bowel: The colon is of normal caliber. There is no evidence of appendicitis. There are dilated loop s of small bowel to the level of the distal ileum. The terminal ileum is of normal caliber. There i s fecalization of the distal small bowel. The findings are suspicious for small bowel obstruction. Peritoneal cavity: No ascites, collection or mesenteric inflammatory response. No free air. Reproductive organs: Status post hysterectomy. Bones: There again seen mixed lytic and sclerotic lesions and in the bones which appears stable. Soft Tissues: Within normal limits. IMPRESSION: 1. Dilated loops of small bowel to the level of the distal ileum suspicious for small bowel obstructi on. 2. Results of this exam have been verbally communicated with provider. RADIATION DOSE DELIVERED: 686.5mGy.cm Total DLP DATA REPOSITORY: All CT scans at this facility are submitted to the National Radiology Data Registry (NRDR) Dose Index Registry (DIR) with the [employer] (ACR). RADIATION OPTIMIZATION: All CT scans at this facility use at least one of these dose optimization te chniques: automated exposure control; mA and/or kV adjustment per patient size (includes targeted exa ms where dose is matched to clinical indication); or iterative reconstruction.
--- NOTE | 2021-09-23 12:00 | W.ED.GENAD ---
Discharge Plan Disposition Patient Disposition: [facility] INPATIENT Condition: Improving Discharge Details Clinical Impression: Multiple myeloma in remission, Pain from bone metastases, Therapeutic opioid induced constipation Primary Care Provider: Reyna Abrams ED Provider: Sergo Evans Home Meds and New Rx's Prescriptions: No Action gabapentin 300 mg capsule 600 mg PO BID Qty: 60 3RF triamcinolone acetonide 0.1 % cream 1 applic TP BID Qty: 30 1RF nystatin 100,000 unit/gram cream 1 applic TP BID Qty: 30 1RF Movantik 12.5 mg tablet 12.5 mg PO QAM Qty: 30 1RF Rx Instructions: must be taken on empty stomach; no food 1 hr after or 2-3 hrs before dose lenalidomide [Revlimid] 5 mg capsule 5 mg PO DAILY omeprazole 40 mg capsule,delayed release(DR/EC) 40 mg PO DAILY PRNQty: 90 Label Comments: 04/09/16 takes prn. mdh morphine 30 MG tablet 30 mg PO Q4H PRN PRN (Reason: Pain) aspirin [Aspirin Low-Strength] 81 MG tablet,chewable 81 mg PO DAILY Label Comments: 09-21-17 pt reports that she takes this med every other day. hb valacyclovir 500 mg tablet 500 mg PO BID Qty: 60 3RF morphine 60 mg Tablet Extended Release 60 mg PO BID Medical Decision Making 71-year-old female presents from home via EMS. She has a history of bowel obstructions, has a history of multiple Aloma with bony disease for which she takes morphine twice daily. She reports 2 to 3 days of intermittent slowing of her bowels, progressive bloating and distention with nausea. She has not had emesis and no fever. No diarrhea. She arrives to the ER alert and interactive, in some pain. She is at risk for Paramus's syndrome, bowel obstruction. IV access is established, patient given analgesia and antiemetic. Fluids initiated and she is referred for CT imaging. Patient's lab work reveals a white count of 3.6, hematocrit 34, platelets 162. She has had mild hyponatremia in the past and today sodium 131, potassium 3.6, chloride 95, bicarb 29, BUN 10, creatinine 0.7. LFTs unremarkable. Troponin and lipase were negative. Per Dr. Man, patient has evidence of small bowel obstruction. NG tube was placed, case discussed with Dr. Castrejon. This may be more of an Mi's type syndrome with constipation. Dr. Castrejon recommends admission. HPI General Mode of arrival: ambulatory. Date/Time Provider Initiated Documentation: 09/23/21 13:01. Limitations to Documentation: no limitations. Information obtained by: patient. History of Present Illness 71 year old F presents to the emergency department with the chief complaint of Abdominal pain and bloating, described as moderate, Quality is described as dull, and is localized to the abdomen. Patient reports no radiation. Patient started experiencing this day(s) and it has been intermittent. No relieving factors improve symptom(s), No exacerbating factors reported . Patient notes loss of appetite and other (Nauseated without emesis); denies fever/chills. Patient did receive the following treatments prior to arrival, none Related Data Home Medications Medication Instructions Recorded Confirmed morphine 30 mg immediate release 30 mg PO Q4H PRN PRN Pain 12/10/13 09/23/21 tablet aspirin 81 mg chewable tablet 81 mg PO DAILY 08/19/14 09/23/21 (Aspirin Low-Strength) valacyclovir 500 mg tablet 500 mg PO BID #60 tabs 05/25/18 09/23/21 lenalidomide 5 mg capsule 5 mg PO DAILY 02/21/19 09/23/21 (Revlimid) omeprazole 40 mg capsule,delayed 40 mg PO DAILY PRN #90 tab-caps 02/21/19 09/23/21 release gabapentin 300 mg capsule 600 mg PO BID #60 caps 03/11/21 09/23/21 morphine 60 mg tablet,extended 60 mg PO BID 03/26/21 09/23/21 release naloxegol 12.5 mg tablet (Movantik) 12.5 mg PO QAM #30 tabs 08/26/21 09/23/21 nystatin 100,000 unit/gram topical 1 applic topical BID #30 grams 08/26/21 09/23/21 cream triamcinolone acetonide 0.1 % 1 applic topical BID #30 grams 08/26/21 09/23/21 topical cream Previous Rx's Medication Instructions Recorded valacyclovir 500 mg tablet 500 mg PO BID #60 tabs 05/25/18 gabapentin 300 mg capsule 600 mg PO BID #60 caps 03/11/21 naloxegol 12.5 mg tablet (Movantik) 12.5 mg PO QAM #30 tabs 08/26/21 nystatin 100,000 unit/gram topical 1 applic topical BID #30 grams 08/26/21 cream triamcinolone acetonide 0.1 % 1 applic topical BID #30 grams 08/26/21 topical cream Allergies Allergy/AdvReac Type Severity Reaction Status Date / Time iodine Allergy Intermediate Verified 09/23/21 12:22 DUST Allergy Unknown Uncoded 09/23/21 12:22 MOLD AND SMUT Allergy Unknown Uncoded 09/23/21 12:22 General Stated Complaint: Abd Prob RICKI: 3 Review of Systems Narrative: No fever. Had a bowel movement that was small this morning. Feels similar to previous bowel obstructions. Takes morphine twice daily for multiple myeloma and bone pain. 8 systems were reviewed and otherwise negative PFSH All Active Problems (Updated 09/23/21 @ 14:28 by POLLY Belcher) Small bowel obstruction (Acute) Radiation vulvitis (Chronic) Therapeutic opioid induced constipation (Acute) Chronic hepatitis B (Acute 12/29/16) Multiple myeloma in remission (Acute) on revlimid GERD (gastroesophageal reflux disease) (Chronic) Onychomycosis (Chronic) Pain from bone metastases (Acute) maintained on morphine ER and IR; managed by [facility] heme onc. Medical History Disseminated zoster hospitalized at [facility], on lifelong valacyclovir Malaria Malignant neoplasm of uterus 04/01/11 [facility]; ADENOCARCINOMA; ENDOMETROID TYPE ESTIMATED FIGO GRADE I. 04/2011 Hyst and BSO at [facility] Path= stage A1, Gr 11 Psoriasis [place] Barbour auricular syndrome Small bowel obstruction (03/2021) admitted, resolved without intervention Surgical History H/O breast biopsy Right, 1o'clock, 12cm from nipple, US-guided needle core biopsy: negative for malignancy. fibroadipose tissue with assoc hemorrhage. History of cholecystectomy Hx of cataract surgery Hx of cholecystectomy S/P hysterectomy Family History Mother , AGE 84 No problems noted. Father , AGE 92 No problems noted. Sister , AGE 79 No problems noted. Sister No problems noted. Brother , AGE 68 Stomach cancer Brother No problems noted. Brother No problems noted. Brother No problems noted. Brother No problems noted. Son No problems noted. 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 Pets and animals: No Sexually active: No Do you think of yourself as: straight/heterosexual Current gender identity: female What is your relationship status?: How often do you talk on the phone with friends or family?: three or more times per week How often do you attend jehovah's witness or episcopal services?: decline to answer Do you belong to any clubs or organized social groups?: no Panel score (0-1 are the most socially isolated patients): 2 What type of physical activity do you participate in: running Duration: 30-45 minutes/day Frequency: 3-4 times per week Christianne/Gnosticist: Caodaism Seatbelt use: always Drive intox or ride w/intox log driver: No Do you feel safe at home: Yes Do you feel safe in your relationship?: Yes Victim of physical abuse: No Victim of emotional abuse: No Victim of sexual abuse: No Exam Narrative Exam Narrative: GEN: awake, alert, oriented 3. Pleasant, well groomed, interactive, in mild to moderate distress. HEAD: Normocephalic, atraumatic ENT: Mucous membranes moist, oropharynx unremarkable, External ear exam unremarkable EYES: PERRL, EOMI NECK: Full ROM, no LEX, no menigismus CHEST/RESP: Nontender, clear to auscultation bilateral, no wheeze/rhonchi/rales CARDIOVASCULAR: RRR, no murmur, rub karrie. 2+ Rad pulse bilateral ABDOMEN: Soft, distended, diffusely tender, absent bowel sounds EXT: Full ROM, no edema, no rash Neuro: Grossly normal neurologic exam, conversant, interactive. Psych: Speech fluent, thoughts congruent, affect normal Course Vital Signs Vital signs: Temperature Source Skin 09/23/21 11:54 Oxygen Delivery Method Room Air 09/23/21 11:54 Oxygen Flow Rate 0 09/23/21 11:54 Pain Level 10 09/23/21 11:54
[2021-09-23] MEDS: Normal Saline 1,000 ML 125 ML IV ×2 (12:10→20:22)
[2021-09-23] MEDS: Normal Saline Flush 10 ML SYR IVP ×2 (12:10→17:52)
[2021-09-23] MEDS: Ondansetron 4 MG/2 ML VIAL IVP ×3 (12:10→19:39)
[2021-09-23] MEDS: MORPHine 10 MG/ML VIAL 8 MG IVP (12:11)
[2021-09-23 12:26] LABS: Abs Immature Grans 0.01 10^3/uL (0.0-0.06); Absolute Basophil Count 0.02 10^3/uL (0.0-0.2); Absolute Eosinophil Count 0.05 10^3/uL (0.0-0.7); Absolute Lymphocyte Count 0.56 10^3/uL (1.2-3.4); Absolute Monocyte Count 0.34 10^3/uL (0.1-0.8); Absolute Neutrophil Count 2.71 10^3/uL (1.2-6.7); Basophils % 0.5; Eosinophils % 1.4; HCT 34.7 % (36.0-46.0); HGB 12.5 g/dL (11.2-15.7); Immature Grans % 0.3; Lymphocytes % 15.2; MCH 34.2 pg (27.0-33.0); MCV 95 fL (80-95); MPV 9.2 fL (8.0-11.0); Monocytes % 9.2; Neutrophils % 73.4; Platelet Count 162 10^3/uL (130-400); RBC 3.65 10^6/uL (3.93-5.22); RDW-SD 45.1 fL; WBC 3.69 10^3/uL (4.4-10.8)
[2021-09-23 12:53] LABS: ALT 30 U/L (14-59); AST 22 U/L (15-37); Albumin 3.4 g/dL (3.4-5.0); Alkaline Phosphatase 62 U/L (46-116); Anion Gap 6.9 mmol/L (3-11); BUN 10 mg/dL (7-18); Bilirubin, Total 0.4 mg/dL (0.2-1.0); CO2 29.1 mmol/L (21.0-32.0); CREATININE 0.7 mg/dL (0.55-1.02); Calcium 9.3 mg/dL (8.5-10.1); Chloride 95 mmol/L (98-107); Glucose 109 mg/dL (74-106); Lipase 58 U/L (73-393); Magnesium 1.9 mg/dL (1.8-2.4); Potassium 3.6 mmol/L (3.5-5.1); Sodium 131 mmol/L (136-145); Total Protein 8.1 g/dL (6.4-8.2); Troponin I < 50 ng/L (<or=60)
[2021-09-23 14:23] LABS: Source Nasal/Nares
[2021-09-23] MEDS: Lidocaine 2% Jelly 6 ML SYR (14:23)
--- NOTE | 2021-09-23 14:24 | HPE_ITS ---
Assessment and Plan Assessment and plan (1) Small bowel obstruction: Status: Acute Assessment and plan: Small bowel obstruction versus obstipation due to chronic morphine use. Patient will be admitted for bowel decompression, bowel rest, pain control and IV hydration Recommend placement of NG tube Will order enemas to promote bowel movements. Pain control IV tylenol and dilaudid NPO Ambulation, sitting in the chair as tolerated History of Present Illness Narrative: 71-year-old female with a history of bowel obstructions, GERD and multiple myeloma presented to the ER with complaints of a 2 to 3-day history of decrease in bowels, progressive bloating and abdominal distention that was associated with nausea without vomiting. CT scan was performed and noted question of small bowel obstruction. Patient reports severe abdominal pain. She states she last ate yesterday 09/22 at 6 PM. She denies feeling nauseous at this time. Patient denies feeling short of breath or having chest pain. PFSH All Active Problems (Updated 09/23/21 @ 14:28 by POLLY Belcher) Small bowel obstruction (Acute) Radiation vulvitis (Chronic) Therapeutic opioid induced constipation (Acute) Chronic hepatitis B (Acute 12/29/16) Multiple myeloma in remission (Acute) on revlimid GERD (gastroesophageal reflux disease) (Chronic) Onychomycosis (Chronic) Pain from bone metastases (Acute) maintained on morphine ER and IR; managed by [facility] heme onc. 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 04/2011 Hyst and BSO at [facility] Path= stage A1, Gr 11 Psoriasis Gonzales Barbour auricular syndrome Small bowel obstruction (03/2021) admitted, resolved without intervention Surgical History H/O breast biopsy Right, 1o'clock, 12cm from nipple, US-guided needle core biopsy: negative for malignancy. fibroadipose tissue with assoc hemorrhage. History of cholecystectomy Hx of cataract surgery Hx of cholecystectomy S/P hysterectomy Family History Mother , AGE 84 No problems noted. Father , AGE 92 No problems noted. Sister , AGE 79 No problems noted. Sister No problems noted. Brother , AGE 68 Stomach cancer Brother No problems noted. Brother No problems noted. Brother No problems noted. Brother No problems noted. Son No problems noted. 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 Pets and animals: No Sexually active: No Do you think of yourself as: straight/heterosexual Current gender identity: female What is your relationship status?: How often do you talk on the phone with friends or family?: three or more times per week How often do you attend tenriism or christian services?: decline to answer Do you belong to any clubs or organized social groups?: no Panel score (0-1 are the most socially isolated patients): 2 What type of physical activity do you participate in: running Duration: 30-45 minutes/day Frequency: 3-4 times per week Christianne/Holiness: Denominational Seatbelt use: always Drive intox 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 Do you feel safe at home: Yes Do you feel safe in your relationship?: Yes Victim of physical abuse: No Victim of emotional abuse: No Victim of sexual abuse: No Meds Allergies and Home Medications Allergies Allergy/AdvReac Type Severity Reaction Status Date / Time iodine Allergy Intermediate Verified 09/23/21 12:22 DUST Allergy Unknown Uncoded 09/23/21 12:22 MOLD AND SMUT Allergy Unknown Uncoded 09/23/21 12:22 Home Medications Medication Instructions Recorded Confirmed Type morphine 30 mg immediate release 30 mg PO Q4H PRN PRN Pain 12/10/13 09/23/21 History tablet aspirin 81 mg chewable tablet 81 mg PO DAILY 08/19/14 09/23/21 History (Aspirin Low-Strength) valacyclovir 500 mg tablet 500 mg PO BID #60 tabs 05/25/18 09/23/21 Rx lenalidomide 5 mg capsule 5 mg PO DAILY 02/21/19 09/23/21 History (Revlimid) omeprazole 40 mg capsule,delayed 40 mg PO DAILY PRN #90 tab-caps 02/21/19 09/23/21 History release gabapentin 300 mg capsule 600 mg PO BID #60 caps 03/11/21 09/23/21 Rx morphine 60 mg tablet,extended 60 mg PO BID 03/26/21 09/23/21 History release naloxegol 12.5 mg tablet (Movantik) 12.5 mg PO QAM #30 tabs 08/26/21 09/23/21 Rx nystatin 100,000 unit/gram topical 1 applic topical BID #30 grams 08/26/21 09/23/21 Rx cream triamcinolone acetonide 0.1 % 1 applic topical BID #30 grams 08/26/21 09/23/21 Rx topical cream Exam Const General: cooperative and in distress moderate Orientation: alert and oriented x3 Resp Effort & Inspection: normal respiratory effort, no audible wheezes and no cough GI Inspection: distended Palpation: soft, no guarding and tender (Throughout) Auscultation: high-pitched sounds Results Labs Result diagrams: 09/23/21 12:15 09/23/21 12:15 Labs: Laboratory Results - last 24 hr 09/23/21 09/23/21 09/23/21 12:15 12:15 12:15 WBC 3.69 L RBC 3.65 L Hgb 12.5 Hct 34.7 L MCV 95 MCH 34.2 H MCHC 36.0 RDW 13.0 Plt Count 162 MPV 9.2 Immature Gran % 0.3 Neutrophils % 73.4 Lymphocytes % 15.2 Monocytes % 9.2 Eosinophils % 1.4 Basophils % 0.5 Nucleated RBC % 0.0 Absolute Neutrophils 2.71 Absolute Lymphocytes 0.56 L Absolute Monocytes 0.34 Absolute Eosinophils 0.05 Absolute Basophils 0.02 Sodium 131 L Potassium 3.6 Chloride 95 L Carbon Dioxide 29.1 Anion Gap 6.9 BUN 10 Creatinine 0.7 Estimated GFR/1.73 m2 >= 60.00 Glucose 109 H Calcium 9.3 Magnesium Cancelled 1.9 Total Bilirubin 0.4 AST 22 ALT 30 Alkaline Phosphatase 62 Troponin I Cancelled < 50 Total Protein 8.1 Albumin 3.4 Lipase Cancelled 58 COVID-19 Source 09/23/21 14:10 WBC RBC Hgb Hct MCV MCH MCHC RDW Plt Count MPV Immature Gran % Neutrophils % Lymphocytes % Monocytes % Eosinophils % Basophils % Nucleated RBC % Absolute Neutrophils Absolute Lymphocytes Absolute Monocytes Absolute Eosinophils Absolute Basophils Sodium Potassium Chloride Carbon Dioxide Anion Gap BUN Creatinine Estimated GFR/1.73 m2 Glucose Calcium Magnesium Total Bilirubin AST ALT Alkaline Phosphatase Troponin I Total Protein Albumin Lipase COVID-19 Source Nasal/Nares Last Vital Signs Temp 36.4 C L 09/23/21 11:54 Pulse 60 09/23/21 14:23 Resp 12 09/23/21 14:23 BP 158/67 H 09/23/21 14:23 Pulse Ox 100 09/23/21 14:23
[2021-09-23 14:43] LABS: Bilirubin Negative (Negative); Blood Negative (Negative); Clarity Sl Cloudy (Clear); Glucose Negative (Negative); Ketones Negative (Negative); Leukocyte Esterase Negative (Negative); Nitrite Negative (Negative); Urobilinogen 0.2 EU/dL (Up TO 0.2); pH 8.5 (5-8)
[2021-09-23] MEDS: ACETAMINOPHEN 1,000 MG/100 ML BTL 400 MG IVPB (14:58)
[2021-09-23 15:22] LABS: COVID-19 PCR Negative (Negative)
--- NOTE | 2021-09-23 16:40 | NUR.NOTE ---
Nursing Note: Mick [phone]
[2021-09-23] MEDS: Enoxaparin 40 MG/0.4 ML SYR SC (17:49)
[2021-09-23] MEDS: Magnesium Citrate 300 ML BTL PO (17:49)
[2021-09-23] MEDS: Pantoprazole 40 MG VIAL IVP (17:51)
--- NOTE | 2021-09-23 18:34 | NUR.NOTE ---
Nursing Note: 150 cc of milk and molasses enema given via gravity bag at 1830.
[2021-09-23] MEDS: HYDROmorphone 2 MG/ML SYR 0.5 MG IVP (20:00)
--- NOTE | 2021-09-23 22:00 | DI.RAD_ITS ---
Exam(s) XR PORTABLE CHEST AP EXAM: XR PORTABLE CHEST AP CLINICAL HISTORY: confirmation of NG tube placement TECHNIQUE: 2D digital imaging was performed. COMPARISON: CR CHEST 2 VIEWS PA,LAT from 12/26/2016 FINDINGS: LUNGS: Poorly inflated but clear. No pleural abnormality seen. HEART: Mildly enlarged. Tortuous aorta. AORTA: Normal. BONES: Scoliosis and degenerative changes. Soft tissues: Nasogastric tube projects in stomach.. IMPRESSION: Satisfactory placement nasogastric tube. DATA REPOSITORY: RADIATION DOSE DELIVERED:
--- NOTE | 2021-09-23 22:29 | NUR.NOTE ---
Nursing Note: at shift change, this RN spoke with pharmacist in charge to clarify md order for NGT to be to suction or not. md confirmed to place to suction if patient has nausea/vomiting, otherwise clamped. this rn notified relief charge nursern ccu was not verified and requested cxr. relief charge nurse and this rn aspirated contents from NG and used gastric contents ph strip with result of 4-5. order was also placed for cxr, pending results at this time. 2230-patient is currently sleeping comfortably after phenergan administration at this time
[2021-09-23] MEDS: Ketorolac 15 MG/ML VIAL IVP (22:59)
--- NOTE | 2021-09-23 23:05 | DI.VRAD_ITS ---
PROCEDURE INFORMATION: Exam: XR Chest Exam date and time: 09/23/2021 9:34 PM Age: 71 years old Clinical indication: Device placement; Ng tube TECHNIQUE: Imaging protocol: Radiologic exam of the chest. Views: 1 view. COMPARISON: CR CHEST 2 VIEWS PA,LAT 12/26/2016 2:51 AM FINDINGS: Tubes, catheters and devices: Enteric tube in place with distal tip and side port subdiaphragmatic. Lungs: Lungs are adequately inflated. No focal consolidation. Mild basilar atelectasis. Pleural spaces: No visible pleural effusion. No pneumothorax. Heart/Mediastinum: Cardiomediastinal contour stable, mildly enlarged. Vasculature: Thoracic aorta appears tortuous. Diaphragm: Asymmetric elevation of the right hemidiaphragm, similar to mildly worsened to prior. Bones/joints: Multilevel thoracic spondylosis. No acute osseous finding. Organs: Cholecystectomy clips are in place. IMPRESSION: Enteric tube in place with distal tip and side port subdiaphragmatic. Dictated and Authenticated by: Bryant Liz MD. Ordering:RAUL Fiore MD
[2021-09-24] MEDS: HYDROmorphone 2 MG/ML SYR 0.5 MG IVP ×2 (02:13→08:24)
[2021-09-24] MEDS: Ketorolac 15 MG/ML VIAL IVP ×2 (05:05→13:14)
[2021-09-24 07:34] VITALS: BP 175/96; PULSE 77; RESP 18; TEMP 37.3; O2SAT 98
[2021-09-24] MEDS: Ondansetron 4 MG/2 ML VIAL IVP ×2 (08:13→13:37)
--- NOTE | 2021-09-24 08:25 | W.PM.PROGNOT ---
Date of Service Date of service: 09/24/21 Time of Service: 08:25 Assessment and Plan Assessment and plan (1) Small bowel obstruction: Status: Acute Assessment and plan: Small bowel obstruction versus obstipation due to chronic morphine use. 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 c/o severe nausea. min from NGT + BS check ngt positon/flat plate passed air today but no flatus still having overall generalized pain. addendum-patient been having a bowel movement with Relistor. We will pull NG tube and start her on clears. Hopefully DC home in a.m. Subjective Subjective Interval history since last seen: Arrived with patient sitting up in the chair. She states she feels slightly better this morning however is feeling nauseous. She denies any fevers, chills or night sweats Exam Const General: cooperative and comfortable Orientation: alert and oriented x3 Resp Effort & Inspection: normal respiratory effort, no audible wheezes and no cough GI Inspection: distended Palpation: soft, no guarding and nontender Auscultation: hypoactive bowel sounds Other: NG tube in place on intermittent suction. Objective Last Vital Signs Temp 37.3 C 09/24/21 07:34 Pulse 77 09/24/21 07:34 Resp 18 09/24/21 07:34 BP 175/96 H 09/24/21 07:34 Pulse Ox 98 09/24/21 07:34 Laboratory Results - last 24 hr 09/23/21 09/23/21 09/23/21 12:15 12:15 12:15 WBC 3.69 L RBC 3.65 L Hgb 12.5 Hct 34.7 L MCV 95 MCH 34.2 H MCHC 36.0 RDW 13.0 Plt Count 162 MPV 9.2 Immature Gran % 0.3 Neutrophils % 73.4 Lymphocytes % 15.2 Monocytes % 9.2 Eosinophils % 1.4 Basophils % 0.5 Nucleated RBC % 0.0 Absolute Neutrophils 2.71 Absolute Lymphocytes 0.56 L Absolute Monocytes 0.34 Absolute Eosinophils 0.05 Absolute Basophils 0.02 Sodium 131 L Potassium 3.6 Chloride 95 L Carbon Dioxide 29.1 Anion Gap 6.9 BUN 10 Creatinine 0.7 Estimated GFR/1.73 m2 >= 60.00 Glucose 109 H Calcium 9.3 Magnesium Cancelled 1.9 Total Bilirubin 0.4 AST 22 ALT 30 Alkaline Phosphatase 62 Troponin I Cancelled < 50 Total Protein 8.1 Albumin 3.4 Lipase Cancelled 58 Urine Color Urine Clarity Urine pH Ur Specific [place] Urine Protein Urine Ketones Urine Blood Urine Nitrite Urine Bilirubin Urine Urobilinogen Ur Leukocyte Esterase Urine Glucose COVID-19 Source SARS-CoV-2 (PCR) 09/23/21 09/23/21 14:10 14:19 WBC RBC Hgb Hct MCV MCH MCHC RDW Plt Count MPV Immature Gran % Neutrophils % Lymphocytes % Monocytes % Eosinophils % Basophils % Nucleated RBC % Absolute Neutrophils Absolute Lymphocytes Absolute Monocytes Absolute Eosinophils Absolute Basophils Sodium Potassium Chloride Carbon Dioxide Anion Gap BUN Creatinine Estimated GFR/1.73 m2 Glucose Calcium Magnesium Total Bilirubin AST ALT Alkaline Phosphatase Troponin I Total Protein Albumin Lipase Urine Color Yellow Urine Clarity Sl Cloudy Urine pH 8.5 H Ur Specific [place] 1.020 Urine Protein Negative Urine Ketones Negative Urine Blood Negative Urine Nitrite Negative Urine Bilirubin Negative Urine Urobilinogen 0.2 Ur Leukocyte Esterase Negative Urine Glucose Negative COVID-19 Source Nasal/Nares SARS-CoV-2 (PCR) Negative
[2021-09-24] MEDS: Normal Saline 1,000 ML 125 ML IV (13:08)
[2021-09-24 15:16] VITALS: BP 157/77; PULSE 81; RESP 18; TEMP 37.7; O2SAT 97
--- NOTE | 2021-09-24 16:45 | DI.RAD_ITS ---
Exam(s) XR PORTABLE CHEST AP EXAM: XR PORTABLE CHEST AP CLINICAL HISTORY: NG tube placement TECHNIQUE: 2D digital imaging was performed of the chest. One image was obtained. An AP view was ob tained. COMPARISON: No exams were available for comparison FINDINGS: MEDIASTINUM: Normal. HEART: Normal. PULMONARY VASCULATURE: Normal. LUNGS: No focal consolidating infiltrates. PLEURAL SPACE: No pleural effusion or pneumothorax. BONE:Within normal limits for the patient's age. There is an S-type thoracolumbar scoliosis. OTHER FINDINGS:The nasogastric tube tip is seen in the stomach. The side-port is seen in the distal esophagus. Surgical clips are seen in the right upper quadrant likely IMPRESSION: The tip of the nasogastric tube is seen in the stomach. The side port is seen in the distal esophagu s. Consider slight advancement of the tube for better positioning. DATA REPOSITORY: RADIATION DOSE DELIVERED:
[2021-09-24] MEDS: Pantoprazole 40 MG VIAL IVP (17:31)
[2021-09-24] MEDS: Enoxaparin 40 MG/0.4 ML SYR SC (17:31)
[2021-09-24] MEDS: Methylnaltrexone 12 MG/0.6 ML VIAL 8 MG SC (17:31)
--- NOTE | 2021-09-24 17:44 | DI.VRAD_ITS ---
PROCEDURE INFORMATION: Exam: XR Chest Exam date and time: 09/24/2021 4:45 PM Age: 71 years old Clinical indication: Device placement; Ng tube TECHNIQUE: Imaging protocol: Radiologic exam of the chest. Views: 1 view. COMPARISON: XR PORTABLE CHEST AP 09/23/2021 9:34 PM FINDINGS: Tubes, catheters and devices: NG tube tip projects over the stomach with the side port overlying the distal esophagus. Lungs: Subsegmental left basilar atelectasis. Pleural spaces: Unremarkable. No pleural effusion. No pneumothorax. Heart/Mediastinum: Unremarkable. No cardiomegaly. Vasculature: Atherosclerotic calcification of the aortic arch. Bones/joints: Degenerative osseous changes. Chronic left rib fractures. Intraperitoneal space: Right upper quadrant surgical clips. IMPRESSION: NG tube tip projects over the stomach with side port overlying the distal esophagus. Consider slight advancement for optimal positioning. Dictated and Authenticated by: Bernard Tijerina MD. Ordering:NAM Ring MD
[2021-09-24] MEDS: valACYclovir 500 MG TAB PO (19:32)
[2021-09-24] MEDS: Docusate Sodium 100 MG CAP PO (19:34)
[2021-09-24] MEDS: Gabapentin 300 MG CAP 600 MG PO (19:34)
[2021-09-24 22:19] VITALS: BP 157/82; PULSE 78; RESP 20; TEMP 37.8; O2SAT 97
[2021-09-25 07:25] VITALS: BP 99/55; PULSE 78; RESP 16; TEMP 36.4; O2SAT 97
[2021-09-25] MEDS: Polyethylene Glycol 3350 17 GM PACKET PO (07:45)
[2021-09-25] MEDS: valACYclovir 500 MG TAB PO (07:46)
[2021-09-25] MEDS: Methylnaltrexone 12 MG/0.6 ML VIAL 8 MG SC (07:46)
[2021-09-25] MEDS: Docusate Sodium 100 MG CAP PO ×2 (07:47→13:33)
[2021-09-25] MEDS: Gabapentin 300 MG CAP 600 MG PO (07:47)
--- NOTE | 2021-09-25 08:00 | DI.RAD_ITS ---
Exam(s) XR ABDOMEN FLAT UPRIGHT EXAM: 2D digital imaging was performed. CLINICAL HISTORY: fecal impaction. COMPARISON: CR,XR XR ABDOMEN FLAT UPRIGHT from 03/28/2021 CR,XR XR PORTABLE CHEST AP from 09/23/2021 TECHNIQUE: Supine and upright views of the abdomen was performed. Two images were obtained. FINDINGS: LUNG BASES: Clear. BOWEL GAS PATTERN: Nondistended. FREE AIR: None. CALCIFICATIONS: No radiopaque calcifications. OSSEOUS STRUCTURES: Normal for age. There is a left convex thoracolumbar scoliosis. There is unchang ed sclerosis of the left iliac bone. OTHER FINDINGS: The nasogastric tube has been removed. Surgical clips are seen in the right upper qu adrant likely reflecting prior cholecystectomy. IMPRESSION: No evidence of bowel obstruction. DATA REPOSITORY: RADIATION DOSE DELIVERED:
[2021-09-25] MEDS: Normal Saline Flush 10 ML SYR IVP (09:44)
--- NOTE | 2021-09-25 09:51 | PDOC.CMIN ---
- If Service Date Differs Date of service: 09/25/21 Time of Service: 09:51 Care Management Initial Assess REASON FOR HOSPITALIZATION:: Multiple myeloma in remission, Pain from bone metastases, Therapeutic opioid induced constipation; Obstipation PAST MEDICAL HISTORY/PAST SURGICAL HISTORY:: Medical History . Disseminated zoster. hospitalized at [facility], on lifelong valacyclovir. Malaria. Malignant neoplasm of uterus. 04/01/11 [facility]; ADENOCARCINOMA; ENDOMETROID TYPE ESTIMATED FIGO GRADE I. 04/2011 [place]st [place] [facility] Path= stage A1, Gr 11. Psoriasis. [facility] Barbour auricular syndrome. Small bowel obstruction (03/2021). admitted, resolved without intervention. Surgical History . H/O breast biopsy. Right, 1o'clock, 12cm from nipple, US-guided needle core biopsy: negative for malignancy. fibroadipose tissue with assoc hemorrhage. History of cholecystectomy. Hx of cataract surgery. Hx of cholecystectomy. S/P hysterectomy PREVIOUS FUNCTIONAL STATUS/SOCIAL/FAMILY SUPPORTS:: Resides in [place] with , Mick. 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 CURRENT FUNCTIONAL STATUS:: Reyna is being treated for constipation, per provider constipation secondary to narcotic use for chronic pain. She remains on IVF, NG tube, bowel rest and IV pain medication. ADVANCE DIRECTIVES:: None on file. Has patient been provided with info about the portal/API?: Yes Did the patient sign up for the portal?: No CODE STATUS:: Full Code INSURANCE COVERAGE / FINANCIAL ISSUES:: BC/BS. Medicare CURRENT HOME/COMMUNITY SERVICES/EQUIPMENT:: None, currently. PRIMARY CARE PHYSICIAN:: Reyna Abrams POTENTIAL DISCHARGE NEEDS:: Follow up appointments. PATIENT/FAMILY EDUCATION NEEDS:: Review discharge instructions, discuss Ask Me Three. ANTICIPATED BARRIERS TO DISCHARGE:: None identified. TRANSPORTATION:: Via private vehicle with her . PLAN:: Reyna will return home when ready per MD. She will follow up with her PCP and plan of care as prescribed. She will transport via private vehicle with her .
--- NOTE | 2021-09-25 10:35 | CHAPLAIN ---
Reyna was up in the chair when I visited. She said she is feeling better, but that she had had severe abdominal pain and her called 911 to bring her to the ED. Something is twisted in her stomach, she said, and that's causing the pain. Reyna is from [facility] [place]. She has family in [facility] [place] and in [place]. She hopes to visit family again in [facility] [place], but COVID has prevented her from traveling there. Reyna is part of a [employer] community, somewhere in the [facility]. I wasn't able to follow exactly where she was describing. She's not part of the [employer] centers in [place], this one is somewhere else. They are preparing for three Buddhas to visit this summer, she said. Reyna has been in touch with her by phone. She is worried about her khanna and hopes that he is watering them.
--- NOTE | 2021-09-25 12:14 | DSE_ITS ---
Date of service: 09/25/21 Time of Service: 12:27 DS: Diagnosis Discharge Diagnosis (1) Small bowel obstruction: Status: Acute Asessment and Plan: -Resolved -Tolerating PO diet -Having bowel movements Discharge Plan Disposition Patient Disposition: HOME Condition: Improving Discharge Details Reason For Visit: Obstipation Admit Date/Time: 09/23/21 16:12 Admit Provider: Macarena Castrejon Attending Provider: Macarena Castrejon Primary Care Provider: Reyna Abrams Hospital Course Hospital Course: Patient was admitted and treated for small bowel obstruction, shes having bowel movements and tolerating regular diet. Home Meds and New Rx's Prescriptions: Continued gabapentin 300 mg capsule 600 mg PO BID Qty: 60 3RF triamcinolone acetonide 0.1 % cream 1 applic TP BID Qty: 30 1RF nystatin 100,000 unit/gram cream 1 applic TP BID Qty: 30 1RF Movantik 12.5 mg tablet 12.5 mg PO QAM Qty: 30 1RF Rx Instructions: must be taken on empty stomach; no food 1 hr after or 2-3 hrs before dose lenalidomide [Revlimid] 5 mg capsule 5 mg PO DAILY omeprazole 40 mg capsule,delayed release(DR/EC) 40 mg PO DAILY PRNQty: 90 Label Comments: 04/09/16 takes prn. md morphine 30 MG tablet 30 mg PO Q4H PRN PRN (Reason: Pain) aspirin [Aspirin Low-Strength] 81 MG tablet,chewable 81 mg PO DAILY Label Comments: 09-21-17 pt reports that she takes this med every other day. hb valacyclovir 500 mg tablet 500 mg PO BID Qty: 60 3RF morphine 60 mg Tablet Extended Release 60 mg PO BID Discharge Instructions Instructions: Bowel Obstruction (DC) Referrals: Macarena Castrejon MD [ [facility] STAFF PHYSICIAN] - Activity:: Activity as Tolerated Equipment/Supplies:: No Equipment Needed Diet:: As Tolerated Discharge Orders Discharge Orders: Discharge Order (Routine); Ordered 09/25/21 Ordered By: Noelle Du DS: Summary Time Spent with Patient providing and/or coordinating discharge services: Less than 30 minutes Status at Discharge Functional status at discharge: independent ambulation Overall status at discharge: patient is progressing back to baseline Mental Status: mental status grossly normal Speech and Movement: speech and movement normal Mood: congruent mood Affect: normal affect Exam Const General: cooperative and comfortable Orientation: alert and oriented x3 Resp Effort & Inspection: normal respiratory effort, no audible wheezes and no cough GI Inspection: normal to inspection and non-distended Palpation: soft, no guarding and nontender Skin General skin exam: no rashes or lesions noted Psych Mental Status: mental status grossly normal Speech and Movement: speech and movement normal Mood: congruent mood Affect: normal affect DS: Data Vitals/I&O Vitals and I&O: Vital Signs Temperature 97.5 F L 09/25/21 07:25 Temperature Source Tympanic 09/25/21 07:25 Pulse 78 09/25/21 07:25 Pulse Rhythm Regular 09/25/21 10:17 Pulse 63 09/23/21 15:50 Respiratory Rate 16 09/25/21 07:25 Respiratory Effort Non-Labored 09/25/21 10:17 Respiratory Depth Normal 09/25/21 10:17 Respiratory Pattern Normal 09/25/21 10:17 Blood Pressure 99/55 L 09/25/21 07:25 Blood Pressure Mean 81 09/23/21 15:46 Pulse Oximetry 97 09/25/21 07:25 Oxygen Delivery Method Room Air 09/25/21 07:25 Oxygen Flow Rate 0 09/25/21 07:25 Pain Level 3 09/25/21 07:25 Comment 09/25/21 07:25 Intake & Output 09/24/21 09/25/21 09/25/21 23:59 11:59 23:59 Intake Total 590.833 / 1590.833 729.167 / 729.167 Output Total 1199 / 2024 Balance -609.167 / -434.167 729.167 / 729.167 Intake: IV 470.833 / 1470.833 529.167 / 529.167 Oral 120 / 120 200 / 200 Output: Gastric Drainage 1150 / 1150 Left Nare 1150 / 1150 Urine 50 / 875 Other: Urine Color Yellow Urine Appearance Clear Clear Urine Odor Normal Comment unclear amount of urine, no hat, was mixed with a little stool. could not evaluate, mixed with stool Stool Size Small Large Stool Characteristics Formed Liquid Voiding Methods Bedside Commode PFSH All Active Problems (Updated 09/23/21 @ 14:28 by Janette Montrose, PA) Small bowel obstruction (Acute) Radiation vulvitis (Chronic) Therapeutic opioid induced constipation (Acute) Chronic hepatitis B (Acute 12/29/16) Multiple myeloma in remission (Acute) on revlimid GERD (gastroesophageal reflux disease) (Chronic) Onychomycosis (Chronic) Pain from bone metastases (Acute) maintained on morphine ER and IR; [place] [facility] [place]. 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 fibroadipose tissue with assoc hemorrhage. History of cholecystectomy Hx of cataract surgery Hx of cholecystectomy S/P hysterectomy Family History Mother , AGE 84 No problems noted. Father , AGE 92 No problems noted. Sister , AGE 79 No problems noted. Sister No problems noted. Brother , AGE 68 Stomach cancer Brother No problems noted. Brother No problems noted. Brother No problems noted. Brother No problems noted. Son No problems noted. 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 Pets and animals: No Sexually active: No Do you think of yourself as: straight/heterosexual Current gender identity: female What is your relationship status?: How often do you talk on the phone with friends or family?: three or more times per week How often do you attend anglican or gnosticism services?: decline to answer Do you belong to any clubs or organized social groups?: no Panel score (0-1 are the most socially isolated patients): 2 What type of physical activity do you participate in: running Duration: 30-45 minutes/day Frequency: 3-4 times per week Christianne/Faith: Yarsanism Seatbelt use: always Drive intox 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
[2021-09-25 14:39] VITALS: BP 106/66; PULSE 71; RESP 18; TEMP 36.4; O2SAT 99
== END 2021-09-25 17:16 | disposition home or self-care (01) ==
LOC: ER 14:37 → MS 09-24 07:23
PROVIDERS: Admitting Provider Surgery; Emergency Provider Emergency Medicine; PCP Family Medicine; Visit Provider Surgery
DX: K56.609 Unspecified intestinal obstruction, unspecified as to partial versus complete obstruction (principal); K21.9 Gastro-esophageal reflux disease without esophagitis; L40.9 Psoriasis, unspecified; B02.21 Postherpetic geniculate ganglionitis; C79.51 Secondary malignant neoplasm of bone; G89.3 Neoplasm related pain (acute) (chronic); K59.03 Drug induced constipation; T40.2X5A Adverse effect of other opioids, initial encounter; E87.1 Hypo-osmolality and hyponatremia; N76.2 Acute vulvitis; Y84.2 Radiological procedure and radiotherapy as the cause of abnormal reaction of the patient, or of later complication, without mention of misadventure at the time of the procedure; B18.1 Chronic viral hepatitis B without delta-agent; C90.01 Multiple myeloma in remission; Z86.13 Personal history of malaria; B02.7 Disseminated zoster; Z85.42 Personal history of malignant neoplasm of other parts of uterus
CPT/HCPCS: 80053; 83690; 87635; 93005; 96361; 96365; 96372; 96374; 96375; 96376; 99217; 99219; 99225; 99285; J1650; 71045; 74019; 74176; 81003; 83735; 84484; 85025; 93010; G0378; J0131; J1170; J1885; J2270; J2405

== ENCOUNTER 2021-10-12 03:06 | Outpatient (CLI) | payer MEDICARE, BC, SELFPAY ==
[2021-10-12 13:09] LABS: Absolute Basophil Count 0.02 10^3/uL (0.0-0.2); Absolute Eosinophil Count 0.08 10^3/uL (0.0-0.7); Absolute Lymphocyte Count 1.13 10^3/uL (1.2-3.4); Absolute Monocyte Count 0.25 10^3/uL (0.1-0.8); Absolute Neutrophil Count 1.69 10^3/uL (1.2-6.7); Basophils % 0.6; Eosinophils % 2.5; HCT 32.5 % (36.0-46.0); HGB 11.4 g/dL (11.2-15.7); Lymphocytes % 35.6; MCH 34.4 pg (27.0-33.0); MCHC 35.1 % (32.0-36.0); MCV 98 fL (80-95); MPV 8.6 fL (8.0-11.0); Monocytes % 7.9; Neutrophils % 53.4; Platelet Count 163 10^3/uL (130-400); RBC 3.31 10^6/uL (3.93-5.22); RDW-SD 46.4 fL; WBC 3.17 10^3/uL (4.4-10.8)
[2021-10-12 13:28] LABS: ALT 25 U/L (14-59); AST 25 U/L (15-37); Albumin 3.2 g/dL (3.4-5.0); Alkaline Phosphatase 83 U/L (46-116); Anion Gap 5.8 mmol/L (3-11); BUN 10 mg/dL (7-18); Bilirubin, Total 0.3 mg/dL (0.2-1.0); CO2 28.2 mmol/L (21.0-32.0); CREATININE 0.7 mg/dL (0.55-1.02); Calcium 8.3 mg/dL (8.5-10.1); Chloride 98 mmol/L (98-107); Glucose 97 mg/dL (74-106); Potassium 4.1 mmol/L (3.5-5.1); Sodium 132 mmol/L (136-145); Total Protein 7.2 g/dL (6.4-8.2)
[2021-10-13 08:45] LABS: IgA 328 mg/dL (85-499); IgG 1495 mg/dL (610-1,616); IgM 54 mg/dL (35-242); Kappa Free Light Chain 2.14 mg/dL (0.33-1.94); Lambda Free Light Chain 1.45 mg/dL (0.57-2.63)
[2021-10-13 13:16] LABS: Albumin 54.2 % (55.8-66.1); Albumin g/dL 3.7 g/dL (3.6-5.2); Total Protein 6.8 g/dL (6.3-8.2)
== END 2021-10-12 03:07 | disposition home or self-care (01) ==
PROVIDERS: PCP Family Medicine; Visit Provider Nurse Practitioner Family
DX: C90.00 Multiple myeloma not having achieved remission (principal)
CPT/HCPCS: 36415; 80053; 82784; 83883; 84165; 85025

== ENCOUNTER 2021-11-09 03:56 | Outpatient (CLI) | payer MEDICARE, BC, SELFPAY ==
[2021-11-09 13:26] LABS: Absolute Basophil Count 0.03 10^3/uL (0.0-0.2); Absolute Eosinophil Count 0.08 10^3/uL (0.0-0.7); Absolute Lymphocyte Count 1.41 10^3/uL (1.2-3.4); Absolute Monocyte Count 0.32 10^3/uL (0.1-0.8); Basophils % 0.8; Eosinophils % 2.3; HCT 33.4 % (36.0-46.0); HGB 11.7 g/dL (11.2-15.7); Lymphocytes % 39.8; MCH 34.1 pg (27.0-33.0); MCV 97 fL (80-95); MPV 9.1 fL (8.0-11.0); Neutrophils % 48.1; Platelet Count 174 10^3/uL (130-400); RBC 3.43 10^6/uL (3.93-5.22); RDW 12.8 % (11.7-14.6); RDW-SD 45.1 fL; WBC 3.54 10^3/uL (4.4-10.8)
[2021-11-09 13:39] LABS: ALT 23 U/L (14-59); AST 22 U/L (15-37); Albumin 3.4 g/dL (3.4-5.0); Alkaline Phosphatase 57 U/L (46-116); Anion Gap 5.7 mmol/L (3-11); BUN 12 mg/dL (7-18); Bilirubin, Total 0.4 mg/dL (0.2-1.0); CO2 27.3 mmol/L (21.0-32.0); CREATININE 0.8 mg/dL (0.55-1.02); Calcium 8.3 mg/dL (8.5-10.1); Chloride 98 mmol/L (98-107); Glucose 100 mg/dL (74-106); Potassium 4.3 mmol/L (3.5-5.1); Sodium 131 mmol/L (136-145); Total Protein 7.5 g/dL (6.4-8.2)
[2021-11-10 10:16] LABS: IgA 329 mg/dL (85-499); IgG 1634 mg/dL (610-1,616); IgM 59 mg/dL (35-242); Kappa Free Light Chain 2.66 mg/dL (0.33-1.94); Lambda Free Light Chain 1.71 mg/dL (0.57-2.63)
[2021-11-10 14:10] LABS: Albumin 55.2 % (55.8-66.1); Albumin g/dL 3.9 g/dL (3.6-5.2); Total Protein 7.1 g/dL (6.3-8.2)
== END 2021-11-09 03:57 | disposition home or self-care (01) ==
LOC: LBO 03:56
PROVIDERS: PCP Family Medicine; Visit Provider Internal Medicine Hematology & Oncology
DX: C90.00 Multiple myeloma not having achieved remission (principal)
CPT/HCPCS: 36415; 80053; 82784; 83883; 84165; 85025

== ENCOUNTER 2021-12-08 13:02 | Outpatient (CLI) | payer MEDICARE, BC, SELFPAY ==
[2021-12-08 13:16] LABS: Absolute Basophil Count 0.03 10^3/uL (0.0-0.2); Absolute Eosinophil Count 0.12 10^3/uL (0.0-0.7); Absolute Lymphocyte Count 1.37 10^3/uL (1.2-3.4); Absolute Monocyte Count 0.34 10^3/uL (0.1-0.8); Absolute Neutrophil Count 1.67 10^3/uL (1.2-6.7); Basophils % 0.8; Eosinophils % 3.4; HCT 35.2 % (36.0-46.0); Lymphocytes % 38.8; MCH 33.4 pg (27.0-33.0); MCHC 34.1 % (32.0-36.0); MCV 98 fL (80-95); MPV 8.9 fL (8.0-11.0); Monocytes % 9.6; Neutrophils % 47.4; Platelet Count 167 10^3/uL (130-400); RBC 3.59 10^6/uL (3.93-5.22); RDW 12.2 % (11.7-14.6); RDW-SD 43.7 fL; WBC 3.53 10^3/uL (4.4-10.8)
[2021-12-08 13:42] LABS: ALT 28 U/L (14-59); AST 23 U/L (15-37); Albumin 3.3 g/dL (3.4-5.0); Alkaline Phosphatase 59 U/L (46-116); Anion Gap 2.4 mmol/L (3-11); BUN 12 mg/dL (7-18); Bilirubin, Total 0.4 mg/dL (0.2-1.0); CO2 32.6 mmol/L (21.0-32.0); CREATININE 0.9 mg/dL (0.55-1.02); Calcium 8.5 mg/dL (8.5-10.1); Chloride 99 mmol/L (98-107); Estimated GFR 67.92 (mL/min/1.73m2); Glucose 96 mg/dL (74-106); Potassium 4.1 mmol/L (3.5-5.1); Sodium 134 mmol/L (136-145); Total Protein 7.8 g/dL (6.4-8.2)
[2021-12-09 11:22] LABS: IgA 339 mg/dL (85-499); IgG 1709 mg/dL (610-1,616); IgM 59 mg/dL (35-242); Kappa Free Light Chain 2.85 mg/dL (0.33-1.94); Lambda Free Light Chain 1.88 mg/dL (0.57-2.63)
[2021-12-09 13:37] LABS: Albumin 53.1 % (55.8-66.1); Albumin g/dL 3.9 g/dL (3.6-5.2); Total Protein 7.3 g/dL (6.3-8.2)
== END 2021-12-08 13:03 | disposition home or self-care (01) ==
LOC: LBO 13:10
PROVIDERS: PCP Family Medicine; Visit Provider Nurse Practitioner Family
DX: C90.00 Multiple myeloma not having achieved remission (principal)
CPT/HCPCS: 36415; 80053; 82784; 83883; 84165; 85025

== ENCOUNTER 2022-01-04 04:44 | Outpatient (CLI) | payer MEDICARE, BC, SELFPAY ==
[2022-01-04 13:19] LABS: Abs Immature Grans 0.02 10^3/uL (0.0-0.06); Absolute Basophil Count 0.01 10^3/uL (0.0-0.2); Absolute Eosinophil Count 0.03 10^3/uL (0.0-0.7); Absolute Lymphocyte Count 0.78 10^3/uL (1.2-3.4); Absolute Monocyte Count 0.16 10^3/uL (0.1-0.8); Absolute Neutrophil Count 2.12 10^3/uL (1.2-6.7); Basophils % 0.3; HCT 35.7 % (36.0-46.0); HGB 12.5 g/dL (11.2-15.7); Immature Grans % 0.6; MCH 33.8 pg (27.0-33.0); MCV 97 fL (80-95); MPV 8.5 fL (8.0-11.0); Monocytes % 5.1; Platelet Count 166 10^3/uL (130-400); RDW 12.2 % (11.7-14.6); RDW-SD 43.3 fL; WBC 3.12 10^3/uL (4.4-10.8)
[2022-01-04 13:38] LABS: ALT 24 U/L (14-59); AST 22 U/L (15-37); Albumin 3.5 g/dL (3.4-5.0); Alkaline Phosphatase 71 U/L (46-116); Anion Gap 4.1 mmol/L (3-11); BUN 9 mg/dL (7-18); Bilirubin, Total 0.4 mg/dL (0.2-1.0); CO2 30.9 mmol/L (21.0-32.0); CREATININE 0.7 mg/dL (0.55-1.02); Chloride 99 mmol/L (98-107); Estimated GFR 91.83 (mL/min/1.73m2); Glucose 104 mg/dL (74-106); Potassium 3.9 mmol/L (3.5-5.1); Sodium 134 mmol/L (136-145); Total Protein 8.2 g/dL (6.4-8.2)
[2022-01-05 09:45] LABS: IgA 370 mg/dL (85-499); IgG 1830 mg/dL (610-1,616); IgM 68 mg/dL (35-242); Kappa Free Light Chain 2.71 mg/dL (0.33-1.94); Lambda Free Light Chain 1.85 mg/dL (0.57-2.63)
[2022-01-05 14:57] LABS: Albumin 52.5 % (55.8-66.1); Albumin g/dL 3.9 g/dL (3.6-5.2); Total Protein 7.5 g/dL (6.3-8.2)
== END 2022-01-04 04:45 | disposition home or self-care (01) ==
PROVIDERS: PCP Family Medicine; Visit Provider Nurse Practitioner Family
DX: C90.00 Multiple myeloma not having achieved remission (principal)
CPT/HCPCS: 36415; 80053; 82784; 83883; 84165; 85025

== ENCOUNTER 2022-02-01 13:19 | Outpatient (CLI) | payer MEDICARE, BC, SELFPAY ==
[2022-02-01 13:21] LABS: Absolute Basophil Count 0.02 10^3/uL (0.0-0.2); Absolute Eosinophil Count 0.12 10^3/uL (0.0-0.7); Absolute Lymphocyte Count 1.18 10^3/uL (1.2-3.4); Absolute Monocyte Count 0.27 10^3/uL (0.1-0.8); Absolute Neutrophil Count 1.31 10^3/uL (1.2-6.7); Basophils % 0.7; Eosinophils % 4.1; HCT 36.5 % (36.0-46.0); HGB 12.8 g/dL (11.2-15.7); Lymphocytes % 40.7; MCHC 35.1 % (32.0-36.0); MCV 97 fL (80-95); MPV 8.7 fL (8.0-11.0); Monocytes % 9.3; Neutrophils % 45.2; Platelet Count 156 10^3/uL (130-400); RBC 3.76 10^6/uL (3.93-5.22); RDW 12.5 % (11.7-14.6); RDW-SD 44.2 fL
[2022-02-01 13:53] LABS: ALT 22 U/L (14-59); AST 22 U/L (15-37); Albumin 3.5 g/dL (3.4-5.0); Alkaline Phosphatase 61 U/L (46-116); Anion Gap 6.1 mmol/L (3-11); BUN 9 mg/dL (7-18); Bilirubin, Total 0.4 mg/dL (0.2-1.0); CO2 29.9 mmol/L (21.0-32.0); CREATININE 0.7 mg/dL (0.55-1.02); Calcium 8.9 mg/dL (8.5-10.1); Chloride 102 mmol/L (98-107); Estimated GFR 91.83 (mL/min/1.73m2); Glucose 92 mg/dL (74-106); Sodium 138 mmol/L (136-145); Total Protein 8.2 g/dL (6.4-8.2)
[2022-02-03 11:38] LABS: IgA 365 mg/dL (85-499); IgG 1845 mg/dL (610-1,616); IgM 64 mg/dL (35-242); Kappa Free Light Chain 3.26 mg/dL (0.33-1.94); Lambda Free Light Chain 1.91 mg/dL (0.57-2.63)
[2022-02-03 14:09] LABS: Albumin 53.5 % (55.8-66.1); Albumin g/dL 3.9 g/dL (3.6-5.2); Total Protein 7.3 g/dL (6.3-8.2)
== END 2022-02-01 13:20 | disposition home or self-care (01) ==
PROVIDERS: PCP Family Medicine; Visit Provider Nurse Practitioner Family
DX: C90.00 Multiple myeloma not having achieved remission (principal)
CPT/HCPCS: 36415; 80053; 82784; 83883; 84165; 85025

== ENCOUNTER 2022-03-01 14:25 | Outpatient (CLI) | payer MEDICARE, BC, SELFPAY ==
[2022-03-01 13:19] LABS: Absolute Basophil Count 0.02 10^3/uL (0.0-0.2); Absolute Eosinophil Count 0.09 10^3/uL (0.0-0.7); Absolute Monocyte Count 0.23 10^3/uL (0.1-0.8); Absolute Neutrophil Count 1.67 10^3/uL (1.2-6.7); Basophils % 0.7; Eosinophils % 3.2; HCT 34.3 % (36.0-46.0); HGB 12.1 g/dL (11.2-15.7); Lymphocytes % 28.5; MCH 34.2 pg (27.0-33.0); MCHC 35.3 % (32.0-36.0); MCV 97 fL (80-95); MPV 8.2 fL (8.0-11.0); Monocytes % 8.2; Neutrophils % 59.4; Platelet Count 168 10^3/uL (130-400); RBC 3.54 10^6/uL (3.93-5.22); RDW 12.5 % (11.7-14.6); WBC 2.81 10^3/uL (4.4-10.8)
[2022-03-01 13:27] LABS: ALT 19 U/L (14-59); AST 24 U/L (15-37); Albumin 3.3 g/dL (3.4-5.0); Alkaline Phosphatase 63 U/L (46-116); Anion Gap 5.3 mmol/L (3-11); BUN 11 mg/dL (7-18); Bilirubin, Total 0.4 mg/dL (0.2-1.0); CO2 29.7 mmol/L (21.0-32.0); CREATININE 0.7 mg/dL (0.55-1.02); Calcium 8.3 mg/dL (8.5-10.1); Chloride 98 mmol/L (98-107); Estimated GFR 91.83 (mL/min/1.73m2); Glucose 92 mg/dL (74-106); Potassium 4.1 mmol/L (3.5-5.1); Sodium 133 mmol/L (136-145); Total Protein 7.8 g/dL (6.4-8.2)
[2022-03-02 09:15] LABS: IgA 362 mg/dL (85-499); IgG 1738 mg/dL (610-1616); IgM 62 mg/dL (35-242); Kappa Free Light Chain 2.95 mg/dL (0.33-1.94); Lambda Free Light Chain 1.76 mg/dL (0.57-2.63)
[2022-03-02 13:27] LABS: Albumin 53.4 % (55.8-66.1); Albumin g/dL 3.8 g/dL (3.6-5.2); Total Protein 7.1 g/dL (6.3-8.2)
== END 2022-03-01 14:26 | disposition home or self-care (01) ==
LOC: LBO 14:25
PROVIDERS: PCP Family Medicine; Visit Provider Nurse Practitioner Family
DX: C90.00 Multiple myeloma not having achieved remission (principal)
CPT/HCPCS: 36415; 80053; 82784; 83883; 84165; 85025

== ENCOUNTER → 2022-03-08 03:26 | Outpatient (CLI) | payer MEDICARE, BC, SELFPAY ==
--- NOTE | 2022-03-08 07:30 | DI.MAMMO_ITS ---
Exam(s) MAMMO SCREENING EXAM: MAMMO SCREENING CLINICAL HISTORY: screening,z12.39 TECHNIQUE: Mammograms were interpreted according to the usual protocol including computer analysis w Revaluate CAD system, tomosynthesis and C-view imaging. COMPARISON: 2012 through 2019 FINDINGS: The breasts are composed of scattered fibroglandular densities, Breast Density category B. No suspicious masses or suspicious microcalcifications are seen. No skin thickening or abnormal axillary lymph nodes are seen. There has been no significant change from prior exams. IMPRESSION: BI-RADS Category 1, Negative mammogram Yearly screening mammography is recommended. Breast Density - Category B, scattered fibroglandular densities. A negative radiographic report should not delay biopsy if a dominant or clinically suspicious mass is present. Up to ten percent of cancers are not identified on mammography. A negative report may reinforce clinical impression. Adenosis and dense breasts may obscure an underlying neoplasm. False positive reports average 6 to 10%. Patient will receive a letter notifying them of these results.
== END ==
PROVIDERS: PCP Family Medicine; Visit Provider Family Medicine
DX: Z12.31 Encounter for screening mammogram for malignant neoplasm of breast (principal)
CPT/HCPCS: 77063; 77067

== ENCOUNTER 2022-03-30 04:01 | Outpatient (CLI) | payer MEDICARE, BC, SELFPAY ==
[2022-03-30 13:11] LABS: Abs Immature Grans 0.01 10^3/uL (0.0-0.06); Absolute Basophil Count 0.02 10^3/uL (0.0-0.2); Absolute Eosinophil Count 0.08 10^3/uL (0.0-0.7); Absolute Lymphocyte Count 1.48 10^3/uL (1.2-3.4); Absolute Monocyte Count 0.41 10^3/uL (0.1-0.8); Absolute Neutrophil Count 2.07 10^3/uL (1.2-6.7); Basophils % 0.5; HCT 34.7 % (36.0-46.0); HGB 12.5 g/dL (11.2-15.7); Immature Grans % 0.2; Lymphocytes % 36.4; MCH 33.8 pg (27.0-33.0); MCV 94 fL (80-95); MPV 8.3 fL (8.0-11.0); Monocytes % 10.1; Neutrophils % 50.8; Platelet Count 189 10^3/uL (130-400); RDW 12.2 % (11.7-14.6); RDW-SD 42.5 fL; WBC 4.07 10^3/uL (4.4-10.8)
[2022-03-30 13:26] LABS: ALT 89 U/L (14-59); AST 36 U/L (15-37); Albumin 3.8 g/dL (3.4-5.0); Alkaline Phosphatase 97 U/L (46-116); Anion Gap 6.1 mmol/L (3-11); BUN 11 mg/dL (7-18); Bilirubin, Total 0.4 mg/dL (0.2-1.0); CO2 28.9 mmol/L (21.0-32.0); CREATININE 0.7 mg/dL (0.55-1.02); Chloride 96 mmol/L (98-107); Estimated GFR 91.83 (mL/min/1.73m2); Glucose 104 mg/dL (74-106); Potassium 3.2 mmol/L (3.5-5.1); Sodium 131 mmol/L (136-145); Total Protein 8.5 g/dL (6.4-8.2)
[2022-03-31 09:53] LABS: IgA 421 mg/dL (85-499); IgG 1914 mg/dL (610-1616); IgM 70 mg/dL (35-242); Lambda Free Light Chain 1.71 mg/dL (0.57-2.63)
[2022-03-31 12:28] LABS: Albumin 52.3 % (55.8-66.1); Albumin g/dL 4.3 g/dL (3.6-5.2); Total Protein 8.2 g/dL (6.3-8.2)
== END 2022-03-30 04:02 | disposition home or self-care (01) ==
LOC: LBO 04:01
PROVIDERS: PCP Family Medicine; Visit Provider Internal Medicine Hematology & Oncology
DX: C90.00 Multiple myeloma not having achieved remission (principal)
CPT/HCPCS: 36415; 80053; 82784; 83883; 84165; 85025

== ENCOUNTER 2022-04-26 13:43 | Outpatient (CLI) | payer MEDICARE, BC, SELFPAY ==
[2022-04-26 13:18] LABS: Abs Immature Grans 0.01 10^3/uL (0.0-0.06); Absolute Basophil Count 0.02 10^3/uL (0.0-0.2); Absolute Eosinophil Count 0.06 10^3/uL (0.0-0.7); Absolute Lymphocyte Count 1.29 10^3/uL (1.2-3.4); Absolute Monocyte Count 0.26 10^3/uL (0.1-0.8); Absolute Neutrophil Count 1.75 10^3/uL (1.2-6.7); Basophils % 0.6; Eosinophils % 1.8; HCT 33.4 % (36.0-46.0); HGB 12.1 g/dL (11.2-15.7); Immature Grans % 0.3; Lymphocytes % 38.1; MCH 34.3 pg (27.0-33.0); MCHC 36.2 % (32.0-36.0); MCV 95 fL (80-95); MPV 8.4 fL (8.0-11.0); Monocytes % 7.7; Neutrophils % 51.5; Platelet Count 179 10^3/uL (130-400); RBC 3.53 10^6/uL (3.93-5.22); RDW 12.5 % (11.7-14.6); RDW-SD 43.1 fL; WBC 3.39 10^3/uL (4.4-10.8)
[2022-04-26 13:34] LABS: ALT 21 U/L (14-59); AST 27 U/L (15-37); Albumin 3.5 g/dL (3.4-5.0); Alkaline Phosphatase 60 U/L (46-116); Anion Gap 6.4 mmol/L (3-11); BUN 11 mg/dL (7-18); Bilirubin, Total 0.5 mg/dL (0.2-1.0); CO2 27.6 mmol/L (21.0-32.0); CREATININE 0.7 mg/dL (0.55-1.02); Calcium 8.4 mg/dL (8.5-10.1); Chloride 96 mmol/L (98-107); Estimated GFR 91.83 (mL/min/1.73m2); Glucose 99 mg/dL (74-106); Potassium 3.9 mmol/L (3.5-5.1); Sodium 130 mmol/L (136-145); Total Protein 7.7 g/dL (6.4-8.2)
[2022-04-27 09:02] LABS: IgA 388 mg/dL (85-499); IgG 1755 mg/dL (610-1616); IgM 59 mg/dL (35-242); Kappa Free Light Chain 3.02 mg/dL (0.33-1.94)
[2022-04-27 13:06] LABS: Albumin 54.1 % (55.8-66.1); Albumin g/dL 4.1 g/dL (3.6-5.2); Total Protein 7.6 g/dL (6.3-8.2)
== END 2022-04-26 13:44 | disposition home or self-care (01) ==
LOC: LBO 13:44
PROVIDERS: PCP Family Medicine; Visit Provider Nurse Practitioner Family
DX: C90.00 Multiple myeloma not having achieved remission (principal)
CPT/HCPCS: 36415; 80053; 82784; 83883; 84165; 85025

== ENCOUNTER 2022-05-24 12:34 | Outpatient (CLI) | payer MEDICARE, BC, SELFPAY ==
[2022-05-24 13:21] LABS: Abs Immature Grans 0.01 10^3/uL (0.0-0.06); Absolute Basophil Count 0.01 10^3/uL (0.0-0.2); Absolute Eosinophil Count 0.08 10^3/uL (0.0-0.7); Absolute Lymphocyte Count 1.29 10^3/uL (1.2-3.4); Absolute Monocyte Count 0.25 10^3/uL (0.1-0.8); Absolute Neutrophil Count 1.81 10^3/uL (1.2-6.7); Basophils % 0.3; Eosinophils % 2.3; HCT 34.1 % (36.0-46.0); HGB 12.1 g/dL (11.2-15.7); Immature Grans % 0.3; Lymphocytes % 37.4; MCHC 35.5 % (32.0-36.0); MCV 96 fL (80-95); MPV 8.4 fL (8.0-11.0); Monocytes % 7.2; Neutrophils % 52.5; Platelet Count 173 10^3/uL (130-400); RBC 3.56 10^6/uL (3.93-5.22); RDW 13.1 % (11.7-14.6); RDW-SD 46.5 fL; WBC 3.45 10^3/uL (4.4-10.8)
[2022-05-24 13:53] LABS: ALT 21 U/L (14-59); AST 22 U/L (15-37); Albumin 3.6 g/dL (3.4-5.0); Alkaline Phosphatase 51 U/L (46-116); Anion Gap 6.3 mmol/L (3-11); BUN 10 mg/dL (7-18); Bilirubin, Total 0.5 mg/dL (0.2-1.0); CO2 30.7 mmol/L (21.0-32.0); CREATININE 0.7 mg/dL (0.55-1.02); Calcium 8.8 mg/dL (8.5-10.1); Chloride 97 mmol/L (98-107); Estimated GFR 91.83 (mL/min/1.73m2); Glucose 92 mg/dL (74-106); Potassium 3.8 mmol/L (3.5-5.1); Sodium 134 mmol/L (136-145); Total Protein 7.6 g/dL (6.4-8.2)
[2022-05-25 10:57] LABS: IgA 354 mg/dL (85-499); IgG 1626 mg/dL (610-1616); IgM 59 mg/dL (35-242); Kappa Free Light Chain 2.52 mg/dL (0.33-1.94); Lambda Free Light Chain 1.64 mg/dL (0.57-2.63)
[2022-05-25 13:59] LABS: Albumin 55.7 % (55.8-66.1); Albumin g/dL 4.2 g/dL (3.6-5.2); Total Protein 7.6 g/dL (6.3-8.2)
== END 2022-05-24 12:35 | disposition home or self-care (01) ==
PROVIDERS: PCP Family Medicine; Visit Provider Nurse Practitioner Adult Health
DX: C90.00 Multiple myeloma not having achieved remission (principal)
CPT/HCPCS: 36415; 80053; 82784; 83883; 84165; 85025

== ENCOUNTER 2022-06-21 13:23 | Outpatient (CLI) | payer MEDICARE, BC, SELFPAY ==
[2022-06-21 13:29] LABS: Abs Immature Grans 0.01 10^3/uL (0.0-0.06); Absolute Basophil Count 0.03 10^3/uL (0.0-0.2); Absolute Eosinophil Count 0.06 10^3/uL (0.0-0.7); Absolute Lymphocyte Count 1.07 10^3/uL (1.2-3.4); Absolute Monocyte Count 0.36 10^3/uL (0.1-0.8); Absolute Neutrophil Count 2.28 10^3/uL (1.2-6.7); Basophils % 0.8; Eosinophils % 1.6; HCT 35.7 % (36.0-46.0); HGB 12.9 g/dL (11.2-15.7); Immature Grans % 0.3; Lymphocytes % 28.1; MCH 34.5 pg (27.0-33.0); MCHC 36.1 % (32.0-36.0); MCV 96 fL (80-95); MPV 8.6 fL (8.0-11.0); Monocytes % 9.4; Neutrophils % 59.8; Platelet Count 180 10^3/uL (130-400); RBC 3.74 10^6/uL (3.93-5.22); RDW 12.7 % (11.7-14.6); RDW-SD 44.6 fL; WBC 3.81 10^3/uL (4.4-10.8)
[2022-06-21 13:55] LABS: ALT 31 U/L (14-59); AST 28 U/L (15-37); Albumin 3.7 g/dL (3.4-5.0); Alkaline Phosphatase 59 U/L (46-116); BUN 11 mg/dL (7-18); Bilirubin, Total 0.5 mg/dL (0.2-1.0); CREATININE 0.7 mg/dL (0.55-1.02); Calcium 8.7 mg/dL (8.5-10.1); Chloride 96 mmol/L (98-107); Estimated GFR 91.83 (mL/min/1.73m2); Glucose 94 mg/dL (74-106); Potassium 3.9 mmol/L (3.5-5.1); Sodium 133 mmol/L (136-145)
[2022-06-22 09:55] LABS: IgA 364 mg/dL (85-499); IgG 1705 mg/dL (610-1616); IgM 66 mg/dL (35-242); Kappa Free Light Chain 2.61 mg/dL (0.33-1.94)
[2022-06-22 12:54] LABS: Albumin 55.7 % (55.8-66.1); Albumin g/dL 4.3 g/dL (3.6-5.2); Total Protein 7.8 g/dL (6.3-8.2)
== END 2022-06-21 13:24 | disposition home or self-care (01) ==
LOC: LBO 13:24
PROVIDERS: PCP Family Medicine; Visit Provider Nurse Practitioner Adult Health
DX: C90.00 Multiple myeloma not having achieved remission (principal)
CPT/HCPCS: 36415; 80053; 82784; 83883; 84165; 85025

== ENCOUNTER 2022-07-26 01:31 | Outpatient (CLI) | payer MEDICARE, BC, SELFPAY ==
[2022-07-26 14:02] LABS: Abs Immature Grans 0.01 10^3/uL (0.0-0.06); Absolute Basophil Count 0.03 10^3/uL (0.0-0.2); Absolute Eosinophil Count 0.05 10^3/uL (0.0-0.7); Absolute Lymphocyte Count 1.08 10^3/uL (1.2-3.4); Absolute Monocyte Count 0.28 10^3/uL (0.1-0.8); Absolute Neutrophil Count 2.17 10^3/uL (1.2-6.7); Basophils % 0.8; Eosinophils % 1.4; HCT 36.3 % (36.0-46.0); HGB 12.6 g/dL (11.2-15.7); Immature Grans % 0.3; Lymphocytes % 29.8; MCH 33.3 pg (27.0-33.0); MCHC 34.7 % (32.0-36.0); MCV 96 fL (80-95); Monocytes % 7.7; Platelet Count 202 10^3/uL (130-400); RBC 3.78 10^6/uL (3.93-5.22); RDW 12.9 % (11.7-14.6); RDW-SD 45.6 fL; WBC 3.62 10^3/uL (4.4-10.8)
[2022-07-26 14:10] LABS: ALT 30 U/L (14-59); AST 28 U/L (15-37); Albumin 3.6 g/dL (3.4-5.0); Alkaline Phosphatase 68 U/L (46-116); Anion Gap 4.8 mmol/L (3-11); BUN 10 mg/dL (7-18); Bilirubin, Total 0.5 mg/dL (0.2-1.0); CO2 30.2 mmol/L (21.0-32.0); CREATININE 0.7 mg/dL (0.55-1.02); Calcium 8.5 mg/dL (8.5-10.1); Chloride 96 mmol/L (98-107); Estimated GFR 91.83 (mL/min/1.73m2); Glucose 93 mg/dL (74-106); Sodium 131 mmol/L (136-145); Total Protein 7.7 g/dL (6.4-8.2)
[2022-07-27 09:33] LABS: IgA 377 mg/dL (85-499); IgG 1622 mg/dL (610-1616); IgM 62 mg/dL (35-242); Kappa Free Light Chain 2.68 mg/dL (0.33-1.94); Lambda Free Light Chain 1.64 mg/dL (0.57-2.63)
[2022-07-27 13:15] LABS: Albumin 54.8 % (55.8-66.1); Albumin g/dL 4.2 g/dL (3.6-5.2); Total Protein 7.7 g/dL (6.3-8.2)
== END 2022-07-26 01:32 | disposition home or self-care (01) ==
PROVIDERS: PCP Family Medicine; Visit Provider Nurse Practitioner Adult Health
DX: C90.00 Multiple myeloma not having achieved remission (principal)
CPT/HCPCS: 36415; 80053; 82784; 83883; 84165; 85025

== ENCOUNTER 2022-07-29 00:19 | Inpatient (IN) | payer MEDICARE, BC, SELFPAY ==
[2022-07-29] VITALS (7 sets, daily range): BP systolic 156–186; BP diastolic 81–96; PULSE 71–85; RESP 16–20; TEMP 36.2–37.6; O2SAT 97–100
--- NOTE | 2022-07-29 00:15 | DI.CT_ITS ---
Exam(s) CT ABDOMEN PELVIS WO EXAM: CT ABDOMEN PELVIS WO CLINICAL HISTORY: nausea and abdominal pain, r/o obstruction. TECHNIQUE: Imaging Protocol: Axial computed tomography images with coronal and sagittal reformatted images were created and reviewed. COMPARISON: CT CT ABDOMEN PELVIS WO from 09/23/2021 FINDINGS: ABDOMEN: Lung Bases: There is coronary artery calcifications are present. Liver: Normal density. No measurable mass. Gallbladder and biliary tract: Status post cholecystectomy. No significant biliary ductal dilatation . Pancreas: Normal density, no abnormal calcifications or inflammatory process. Spleen: Normal. Kidneys: Normal size, contour and axis.No radiodense stones or obstructive uropathy. No masses seen. Adrenal glands: No mass is seen. Lymph nodes: Within normal limits. Abdominal Aorta: Abdominal portion non-dilated. Atherosclerosis is present. PELVIS: Bladder:Symmetric distention, no gross wall thickening. Bowel: There are dilated loops of small bowel present air-fluid levels are seen in several loops of s mall bowel. The terminal ileum appears to be of normal caliber. The transition appears to lie in th e posterior pelvis. No bowel wall thickening is present. The stomach is distended. Appendix is unr emarkable. Peritoneal cavity: There is a trace amount of free fluid in the pelvis. No focal fluid collection is seen. No free air. Reproductive organs: Status post hysterectomy. Bones: Within normal limits for the patient's age. There is a left convex lumbar scoliosis. The exp ansile and sclerotic lesion in the left iliac bone is unchanged. Soft Tissues: Within normal limits. IMPRESSION: 1. Mildly dilated loops of small bowel with air-fluid levels. The transition appears to lie in the p osterior pelvis. Findings are suspicious for obstruction. RADIATION DOSE DELIVERED: 516.99mGy.cm Total DLP DATA REPOSITORY: All CT scans at this facility are submitted to the National Radiology Data Registry (NRDR) Dose Index Registry (DIR) with the [employer] (ACR). RADIATION OPTIMIZATION: All CT scans at this facility use at least one of these dose optimization te chniques: automated exposure control; mA and/or kV adjustment per patient size (includes targeted exa ms where dose is matched to clinical indication); or iterative reconstruction.
[2022-07-29 00:33] LABS: Abs Immature Grans 0.03 10^3/uL (0.0-0.06); Absolute Basophil Count 0.04 10^3/uL (0.0-0.2); Absolute Eosinophil Count 0.05 10^3/uL (0.0-0.7); Absolute Lymphocyte Count 1.18 10^3/uL (1.2-3.4); Absolute Monocyte Count 0.49 10^3/uL (0.1-0.8); Absolute Neutrophil Count 3.88 10^3/uL (1.2-6.7); Basophils % 0.7; Eosinophils % 0.9; HCT 37.2 % (36.0-46.0); HGB 13.4 g/dL (11.2-15.7); Immature Grans % 0.5; Lymphocytes % 20.8; MCH 33.8 pg (27.0-33.0); MCV 94 fL (80-95); MPV 8.9 fL (8.0-11.0); Monocytes % 8.6; Neutrophils % 68.5; Platelet Count 189 10^3/uL (130-400); RBC 3.97 10^6/uL (3.93-5.22); RDW 12.3 % (11.7-14.6); RDW-SD 42.5 fL; WBC 5.67 10^3/uL (4.4-10.8)
[2022-07-29 00:36] LABS: Lactate 2.1 mmol/L (0.6-1.4)
--- NOTE | 2022-07-29 00:49 | W.ED.GENAD ---
Discharge Plan Disposition Patient Disposition: Admit to [facility] Condition: Improving Discharge Details Clinical Impression: SBO (small bowel obstruction) Primary Care Provider: Reyna Abrams ED Provider: Brigido Mcmanus Home Meds and New Rx's Prescriptions: No Action gabapentin 300 mg capsule 600 mg PO BID Qty: 60 3RF Movantik 12.5 mg tablet 12.5 mg PO QAM Qty: 30 12RF triamcinolone acetonide 0.1 % cream 1 applic TP BID Qty: 30 1RF nystatin 100,000 unit/gram cream 1 applic TP BID Qty: 30 1RF lenalidomide [Revlimid] 5 mg capsule 5 mg PO DAILY omeprazole 40 mg capsule,delayed release(DR/EC) 40 mg PO DAILY PRNQty: 90 Patient Comments: 04/09/16 takes prn. eugene duloxetine 30 mg capsule,delayed release(DR/EC) 30 mg PO DAILY Qty: 30 5RF aspirin [Aspirin Low-Strength] 81 MG tablet,chewable 81 mg PO DAILY Patient Comments: 09-21-17 pt reports that she takes this med every other day. hb valacyclovir 500 mg tablet 500 mg PO BID Qty: 60 3RF morphine 60 mg Tablet Extended Release 60 mg PO BID Medical Decision Making 71-year-old female with past medical history of uterine cancer, previous small bowel obstructions, cholecystectomy, hysterectomy, who presents today for evaluation of abdominal pain and bloating. Patient states that she had a bowel movement 24 hours ago. She has not had any since then. She has been nauseous but no vomiting. She denies chest pain or shortness of breath. She states that her abdominal pain feels like her previous obstructions. She denies any fever or chills. No other complaints at this time. No other modifying factors. Exam demonstrates mild abdominal distention, diminished bowel sounds throughout. Concern for potential obstruction. We will get a CT scan, gently rehydrate, monitor closely and reassess. 2:07 AM Laboratory work-up demonstrates mild hyponatremia, mild hypokalemia. Magnesium level normal. Patient had already been given a fluid bolus of normal saline, will continue at 150 mL/h. Repeat labs in the morning. We will give 20 mill equivalents of IV potassium. CT scan shows evidence of dilated small bowel loops, concerning for obstruction. Discussed risks and benefits of NG tube, patient elected for NG tube as she has had it before. NG tube was placed by nursing staff without complication. I did contact Dr. Castrejon of surgery and discussed the case with her. She accepts the patient for admission. At her request I will place bridging orders on her behalf. I will continue the saline, every 6 hours Tylenol, and Zofran as needed. Patient has refused narcotics here when we did try to get morphine earlier. I have extensively reviewed the treatment plan with the patient. I have addressed all patient concerns at this time. I have also discussed the plan with the admitting physician and they agree with the current assessment and plan and have agreed to assume responsibility for the patient. All parties demonstrate verbal understanding and agreement with our assessment and plan at this time. The documentation in this chart was dictated using [employer] dictation software. Please excuse any dictation errors. FINDINGS: Lungs: Unremarkable. No consolidation. Pleural spaces: Unremarkable. No pleural effusion. No pneumothorax. Heart/Mediastinum: NG tube tip overlies stomach. No cardiomegaly. Bones/joints: Unremarkable. IMPRESSION: No acute findings. Thank you for allowing us to participate in the care of your patient. Dictated and Authenticated by: Eros Lowe MD 07/29/2022 2:20 AM Eastern Time ([place] & [place]) FINDINGS: Liver: Normal. No mass. Gallbladder and bile ducts: Status post cholecystectomy. Pancreas: Normal. No ductal dilation. Spleen: Normal. No splenomegaly. Adrenal glands: Normal. No mass. Kidneys and ureters: Normal. No hydronephrosis. Stomach and bowel: Borderline dilated small bowel loops , suspicious for obstruction with transition point in the pelvis. Appendix: No evidence of appendicitis. Intraperitoneal space: Minimal intraperitoneal free fluid. Vasculature: Unremarkable. No abdominal aortic aneurysm. Lymph nodes: Unremarkable. No enlarged lymph nodes. Urinary bladder: Unremarkable as visualized. Reproductive: Status post hysterectomy Bones/joints: Unremarkable. No acute fracture. Soft tissues: Unremarkable. IMPRESSION: 1. Borderline dilated small bowel loops , suspicious for obstruction with transition point in the pelvis. 2. Minimal intraperitoneal free fluid. Thank you for allowing us to participate in the care of your patient. Dictated and Authenticated by: Eros Lowe MD 07/29/2022 1:16 AM Eastern Time ([place] & [place]) HPI General Date/Time Provider Initiated Documentation: 07/29/22 00:48. HPI Narrative: 71-year-old female with past medical history of uterine cancer, previous small bowel obstructions, cholecystectomy, hysterectomy, who presents today for evaluation of abdominal pain and bloating. Patient states that she had a bowel movement 24 hours ago. She has not had any since then. She has been nauseous but no vomiting. She denies chest pain or shortness of breath. She states that her abdominal pain feels like her previous obstructions. She denies any fever or chills. No other complaints at this time. No other modifying factors. Related Data Home Medications Medication Instructions Recorded Confirmed aspirin 81 mg chewable tablet 81 mg PO DAILY 08/19/14 03/17/22 (Aspirin Low-Strength) valacyclovir 500 mg tablet 500 mg PO BID #60 tabs 05/25/18 03/17/22 lenalidomide 5 mg capsule 5 mg PO DAILY 02/21/19 03/17/22 (Revlimid) omeprazole 40 mg capsule,delayed 40 mg PO DAILY PRN #90 tab-caps 02/21/19 03/17/22 release gabapentin 300 mg capsule 600 mg PO BID #60 caps 03/11/21 03/17/22 morphine 60 mg tablet,extended 60 mg PO BID 03/26/21 03/17/22 release nystatin 100,000 unit/gram topical 1 applic topical BID #30 grams 01/01/22 03/17/22 cream triamcinolone acetonide 0.1 % 1 applic topical BID #30 grams 01/01/22 03/17/22 topical cream naloxegol 12.5 mg tablet (Movantik) 12.5 mg PO QAM #30 tabs 03/17/22 03/17/22 duloxetine 30 mg capsule,delayed 30 mg PO DAILY #30 caps 05/28/22 release Previous Rx's Medication Instructions Recorded valacyclovir 500 mg tablet 500 mg PO BID #60 tabs 05/25/18 gabapentin 300 mg capsule 600 mg PO BID #60 caps 03/11/21 nystatin 100,000 unit/gram topical 1 applic topical BID #30 grams 01/01/22 cream triamcinolone acetonide 0.1 % 1 applic topical BID #30 grams 01/01/22 topical cream naloxegol 12.5 mg tablet (Movantik) 12.5 mg PO QAM #30 tabs 03/17/22 duloxetine 30 mg capsule,delayed 30 mg PO DAILY #30 caps 05/28/22 release Allergies Allergy/AdvReac Type Severity Reaction Status Date / Time iodine Allergy Intermediate Verified 03/17/22 14:10 DUST Allergy Unknown Uncoded 03/17/22 14:10 MOLD AND SMUT Allergy Unknown Uncoded 03/17/22 14:10 General Stated Complaint: Abd Prob RICKI: 3 Review of Systems All systems reviewed & are unremarkable except as noted in HPI and below PFSH All Active Problems (Updated 07/29/22 @ 02:09 by Brigido Mcmanus DO) Multiple myeloma in remission (Acute) on revlimid GERD (gastroesophageal reflux disease) (Chronic) Chronic hepatitis B (Acute 12/29/16) Onychomycosis (Chronic) Radiation vulvitis (Chronic) Pain from bone metastases (Acute) maintained on morphine ER; managed by [facility] [place] [place] heme [place]. 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 fibroadipose tissue with assoc hemorrhage. History of cholecystectomy Hx of cataract surgery Hx of cholecystectomy S/P hysterectomy Family History Mother , AGE 84 No problems noted. Father , AGE 92 No problems noted. Sister , AGE 79 No problems noted. Sister No problems noted. Brother , AGE 68 Stomach cancer Brother No problems noted. Brother No problems noted. Brother No problems noted. Brother No problems noted. Son No problems noted. 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 and animals: No Sexually active: No Do you think of yourself as: straight/heterosexual Current gender identity: female What is your relationship status?: How often do you talk on the phone with friends or family?: twice per week How often do you get together with friends or relatives?: decline to answer How often do you attend advent or hoahaoism services?: decline to answer Do you belong to any clubs or organized social groups?: no Panel score (0-1 are the most socially isolated patients): 1 What type of physical activity do you participate in: walking and running Duration: 30-45 minutes/day Frequency: 3-4 times per week Christianne/Holiness: Tenriism Special christianne needs: No Seatbelt use: always Drive intox 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 3.ENT: Atraumatic external nose and ears. Dry MM. Neck: Symmetric, trachea midline, No thyromegaly. 4.CVS: +S1/S2, No murmurs or gallops. Peripheral pulses 2+ and equal in all extremities. Brisk capillary refill in all extremities. 5.RESP: Unlabored respiratory effort. Clear to auscultation bilaterally. No wheezes rales or rhonchi 6.GI: Mildly distended, no guarding or rebound. Mild generalized tenderness throughout. No focal tenderness. 7.MSK: Normocephalic/Atraumatic, Extremities w/o deformity or ttp No cyanosis or clubbing, Normal movement of all extremities 8.Skin: Warm, Dry. No rashes or lesions. 9.Neuro: statistics manager II-XII grossly intact. Sensation grossly intact, no focal neurologic deficits. 10.Psych: (AAO) x3. Appropriate mood and affect Course Vital Signs Vital signs: Vital Signs Temperature 36.2 C L 07/29/22 00:14 Pulse 71 07/29/22 00:14 Respiratory Rate 20 07/29/22 00:14 Blood Pressure 172/94 H 07/29/22 00:14 Pulse Oximetry 100 07/29/22 00:14 Temperature 36.2 C L 07/29/22 00:14 Temperature Source Skin 07/29/22 00:14 Pulse 71 07/29/22 00:14 Respiratory Rate 20 07/29/22 00:14 Respiratory Effort Normal 07/29/22 00:16 Blood Pressure 172/94 H 07/29/22 00:14 Blood Pressure Position Supine 07/29/22 00:14 Pulse Oximetry 100 07/29/22 00:14 Oxygen Delivery Method Room Air 07/29/22 00:14 Oxygen Flow Rate 0 07/29/22 00:14 Pain Level 10 07/29/22 00:14 Lab/Test Results Lab/Test Results: Laboratory Tests Range/Units 07/29/22 07/29/22 00:27 00:27 WBC (4.4-10.8) 10^3/uL 5.67 RBC (3.93-5.22) 10^6/uL 3.97 Hgb (11.2-15.7) g/dL 13.4 Hct (36.0-46.0) % 37.2 MCV (80-95) fL 94 MCH (27.0-33.0) pg 33.8 H MCHC (32.0-36.0) % 36.0 RDW (11.7-14.6) % 12.3 Plt Count (130-400) 10^3/uL 189 MPV (8.0-11.0) fL 8.9 Immature Gran % 0.5 Neutrophils % 68.5 Lymphocytes % 20.8 Monocytes % 8.6 Eosinophils % 0.9 Basophils % 0.7 Nucleated RBC % (0.0-0.3) % 0.0 Absolute Neutrophils (1.2-6.7) 10^3/uL 3.88 Absolute Lymphocytes (1.2-3.4) 10^3/uL 1.18 L Absolute Monocytes (0.1-0.8) 10^3/uL 0.49 Absolute Eosinophils (0.0-0.7) 10^3/uL 0.05 Absolute Basophils (0.0-0.2) 10^3/uL 0.04 VBG Lactate (0.6-1.4) mmol/L 2.1 H
[2022-07-29 00:50] LABS: ALT 33 U/L (14-59); AST 37 U/L (15-37); Albumin 3.8 g/dL (3.4-5.0); Alkaline Phosphatase 71 U/L (46-116); Anion Gap 6.7 mmol/L (3-11); BUN 11 mg/dL (7-18); Bilirubin, Total 0.4 mg/dL (0.2-1.0); CO2 29.3 mmol/L (21.0-32.0); CREATININE 0.8 mg/dL (0.55-1.02); Calcium 8.8 mg/dL (8.5-10.1); Chloride 90 mmol/L (98-107); Estimated GFR 78.24 (mL/min/1.73m2); Glucose 116 mg/dL (74-106); Lipase 29 U/L (16-77); Potassium 3.3 mmol/L (3.5-5.1); Sodium 126 mmol/L (136-145); Total Protein 8.1 g/dL (6.4-8.2)
[2022-07-29] MEDS: Normal Saline 1,000 ML 1000 ML IV (00:50)
[2022-07-29] MEDS: Ondansetron 4 MG/2 ML VIAL IVP ×2 (00:50→06:27)
[2022-07-29] MEDS: ACETAMINOPHEN 1,000 MG/100 ML BTL 400 MG IVPB ×2 (00:57→16:13)
--- NOTE | 2022-07-29 01:15 | DI.RAD_ITS ---
Exam(s) XR PORTABLE CHEST AP EXAM: XR PORTABLE CHEST AP CLINICAL HISTORY: post ng tube placement TECHNIQUE: 2D digital imaging was performed of the chest. One image was obtained. An AP view was ob tained. COMPARISON: CR,XR XR PORTABLE CHEST AP from 09/24/2021 FINDINGS: MEDIASTINUM: Normal. HEART: Normal. PULMONARY VASCULATURE: Normal. LUNGS: Clear. PLEURAL SPACE: No pleural effusion or pneumothorax. BONE:Within normal limits for the patient's age. There is a reverse S-type thoracolumbar scoliosis. OTHER FINDINGS:The tip of the enteric tube is below the hemidiaphragms within the stomach in good pos ition. IMPRESSION: 1. No acute pulmonary findings. 2. Tip of the enteric tube is in good position in the stomach. DATA REPOSITORY: RADIATION DOSE DELIVERED:
--- NOTE | 2022-07-29 01:16 | DI.VRAD_ITS ---
PROCEDURE INFORMATION: Exam: CT Abdomen And Pelvis Without Contrast Exam date and time: 07/29/2022 12:40 AM Age: 71 years old Clinical indication: Abdominal pain; Generalized; Additional info: Nausea and abdominal pain, R/O obstruction TECHNIQUE: Imaging protocol: Computed tomography of the abdomen and pelvis without contrast. Radiation optimization: All CT scans at this facility use at least one of these dose optimization techniques: automated exposure control; mA and/or kV adjustment per patient size (includes targeted exams where dose is matched to clinical indication); or iterative reconstruction. COMPARISON: CT ABDOMEN PELVIS WO 09/23/2021 12:52 PM FINDINGS: Liver: Normal. No mass. Gallbladder and bile ducts: Status post cholecystectomy. Pancreas: Normal. No ductal dilation. Spleen: Normal. No splenomegaly. Adrenal glands: Normal. No mass. Kidneys and ureters: Normal. No hydronephrosis. Stomach and bowel: Borderline dilated small bowel loops , suspicious for obstruction with transition point in the pelvis. Appendix: No evidence of appendicitis. Intraperitoneal space: Minimal intraperitoneal free fluid. Vasculature: Unremarkable. No abdominal aortic aneurysm. Lymph nodes: Unremarkable. No enlarged lymph nodes. Urinary bladder: Unremarkable as visualized. Reproductive: Status post hysterectomy. Bones/joints: Unremarkable. No acute fracture. Soft tissues: Unremarkable. IMPRESSION: 1. Borderline dilated small bowel loops , suspicious for obstruction with transition point in the pelvis. 2. Minimal intraperitoneal free fluid. Dictated and Authenticated by: Eros Lowe MD. Ordering:RAND Fofana MD
[2022-07-29 01:55] LABS: Bilirubin Negative (Negative); Blood Trace-intact (Negative); Clarity Clear (Clear); Glucose Negative (Negative); Ketones Negative (Negative); Leukocyte Esterase Negative (Negative); Nitrite Negative (Negative); Specific Gravity 1.015 (1.005-1.025); Urobilinogen 0.2 mg/dL (Up to 0.2)
[2022-07-29 02:03] LABS: Bacteria Rare HPF (Negative); C & S Indicated? No; Crystals Negative HPF (Negative); Epithelial Cells Rare HPF (Negative); Mucus Negative (Negative); RBC 0-2 HPF (0-2); WBC 0-2 HPF (0-5)
--- NOTE | 2022-07-29 02:20 | DI.VRAD_ITS ---
PROCEDURE INFORMATION: Exam: XR Chest Exam date and time: 07/29/2022 2:14 AM Age: 71 years old Clinical indication: Device placement; Ng tube TECHNIQUE: Imaging protocol: Radiologic exam of the chest. Views: 1 view. COMPARISON: XR PORTABLE CHEST AP 09/24/2021 4:45 PM FINDINGS: Lungs: Unremarkable. No consolidation. Pleural spaces: Unremarkable. No pleural effusion. No pneumothorax. Heart/Mediastinum: NG tube tip overlies stomach. No cardiomegaly. Bones/joints: Unremarkable. IMPRESSION: No acute findings. Dictated and Authenticated by: Eros Lowe MD. Ordering:RAND Fofana MD
[2022-07-29] MEDS: POTASSIUM CHLORIDE 20 MEQ/100 ML BAG 50 MEQ IVPB (02:22)
[2022-07-29] MEDS: Normal Saline 1,000 ML 150 ML IV (03:16)
[2022-07-29] MEDS: Acetaminophen 650 MG SUPP PR (06:25)
[2022-07-29 06:44] LABS: Anion Gap 6.9 mmol/L (3-11); BUN 8 mg/dL (7-18); CO2 26.1 mmol/L (21.0-32.0); CREATININE 0.7 mg/dL (0.55-1.02); Calcium 8.4 mg/dL (8.5-10.1); Chloride 95 mmol/L (98-107); Estimated GFR 91.83 (mL/min/1.73m2); Glucose 105 mg/dL (74-106); Potassium 4.2 mmol/L (3.5-5.1); Sodium 128 mmol/L (136-145)
--- NOTE | 2022-07-29 09:12 | INITIAL_ITS ---
- If Service Date Differs Date of service: 07/29/22 Time of Service: 09:12 Care Management Initial Assess REASON FOR HOSPITALIZATION:: SBO PAST MEDICAL HISTORY/PAST SURGICAL HISTORY:: All Active Problems (Updated 09/23/21 @ 14:28 by POLLY Belcher). Small bowel obstruction (Acute). Radiation vulvitis (Chronic). Therapeutic opioid induced constipation (Acute). Chronic hepatitis B (Acute 12/29/16). Multiple myeloma in remission (Acute). on revlimid. GERD (gastroesophageal reflux disease) (Chronic). Onychomycosis (Chronic). Pain from bone metastases (Acute). maintained on morphine ER and IR; managed by [facility] heme onc. Medical History . 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 Malaria. Malignant neoplasm of uterus. 04/01/11 [facility]; ADENOCARCINOMA; ENDOMETROID TYPE ESTIMATED FIGO GRADE I. 04/2011 Hyst and BSO at [facility] Path= stage A1, Gr 11. Psoriasis. [place] auricular syndrome. Small bowel obstruction (03/2021). admitted, resolved without intervention. Surgical History . H/O breast biopsy. Right, 1o'clock, 12cm from nipple, US-guided needle core biopsy: negative for malignancy. fibroadipose tissue with assoc hemorrhage. History of cholecystectomy. Hx of cataract surgery. Hx of cholecystectomy. S/P hysterectomy PREVIOUS FUNCTIONAL STATUS/SOCIAL/FAMILY SUPPORTS:: Reyna lives in [place] with her , Mick. She has one son who lives in [place]. Reyna is independent at baseline in the community, but is disabled due to multiple myeloma. 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 CURRENT FUNCTIONAL STATUS:: Reyna was sitting up in a chair when CM met with her. She has an NG tube and informed CM that it is very uncomfortable. Reyna also stated that she has not slept in 2 days, and is very tired. CM chose to abbreviate the meeting and will see her tomorrow. She remains NPO and did state that the pain medicine helps to control her pain. ADVANCE DIRECTIVES:: On file. Mick [facility] Has patient been provided with info about the portal/API?: Yes Did the patient sign up for the portal?: No CODE STATUS:: Full Code INSURANCE COVERAGE / FINANCIAL ISSUES:: Medicare. BC BS CURRENT HOME/COMMUNITY SERVICES/EQUIPMENT:: none PRIMARY CARE PHYSICIAN:: Reyna Abrams POTENTIAL DISCHARGE NEEDS:: follow up with surgery, PCP and plan of care PATIENT/FAMILY EDUCATION NEEDS:: Review of discharge instructions, limitations, diet, follow up plan and discuss [facility] Me [employer] TRANSPORTATION:: via private vehicle with family PLAN:: Anticipate Vi will be dischjarged home with no new services. She will follow up with her surgeon and plan of care and transport with family. CM will follow and assess for discharge planning concerns.
--- NOTE | 2022-07-29 09:35 | DI.RAD_ITS ---
Exam(s) XR ABDOMEN FLAT UPRIGHT EXAM: 2D digital imaging was performed. CLINICAL HISTORY: sbo. COMPARISON: CR XR ABDOMEN FLAT UPRIGHT from 09/25/[address] ABDOMEN PELVIS WO from 07/29/2022 TECHNIQUE: Supine and upright views of the abdomen was performed. Three images were obtained. FINDINGS: LUNG BASES: Clear. BOWEL GAS PATTERN: Nondistended. There is a small amount of stool seen in the ascending colon. FREE AIR: None. CALCIFICATIONS: No radiopaque calcifications. OSSEOUS STRUCTURES: Within normal limits for the patient's age. There is an S-type thoracolumbar sco liosis. OTHER FINDINGS: The tip of the enteric tube is in good position within the stomach. Surgical clips a re seen in the right upper quadrant of the abdomen. IMPRESSION: No evidence of an acute abdomen. DATA REPOSITORY: RADIATION DOSE DELIVERED:
[2022-07-29] MEDS: MORPHine 2 MG/ML SYR IVP ×4 (09:38→21:50)
[2022-07-29] MEDS: Normal Saline Flush 10 ML SYR IVP (09:39)
--- NOTE | 2022-07-29 10:25 | HPE_ITS ---
Date of service: 07/29/22 Time of Service: 08:30 Assessment and Plan Assessment and plan (1) Multiple myeloma in remission: Status: Acute Assessment and plan: we will need to hold the lenalidomide (2) GERD (gastroesophageal reflux disease): Status: Chronic Assessment and plan: IV protonix Qualifiers: Esophagitis presence: esophagitis presence not specified Qualified Code(s): K21.9 - Gastro-esophageal reflux disease without esophagitis (3) Pain from bone metastases: Status: Acute Assessment and plan: Patient is on 120 MME's daily. I did discuss this with pharmacy. This works out to roughly 2 mg IV every hour to cover her baseline pain. Patient has not been taking any narcotics since she got to the floor. Patient is encouraged to use the narcotics for pain control of this acute pain issue and for her chronic pain otherwise she is going to go into withdrawal and will exacerbate her obstruction (4) SBO (small bowel obstruction): Status: Acute Assessment and plan: NGT decompression. Flate plate does show quit a bit of stool in R colon. We will try some relistor and see if this helps w/ her bowels. Also noted on CT. On CT there is a transition point in the pelvis. Her last two SBO's have resolved w/ conservative management. (5) Disseminated zoster: Assessment and plan: currently holding valtrix (6) Malaria: (7) [place] auricular syndrome: (8) S/P hysterectomy: (9) Chronic narcotic dependence: Status: Acute History of Present Illness Narrative: . Patient is known to the surgical service. She has a history of small bowel obstructions. She had a radical hysterectomy in the past for cancer. She does follow-up with [facility]. I did review her CT. She does have a transition point that seems to be down in the pelvis. She also has had a open cholecystectomy for acute disease. She also has multiple myeloma with bony metastases. She is on 120 MME's a day for chronic pain. She normally takes Movantik. Today she is still having acute abdominal pain and nausea and vomiting around her NG tube. She has not had any narcotics since [facility]. She is actually been refusing pain meds. On exam today her abdomen is soft but there are no bowel sounds. She does not have any peritonitis. But she is very acutely uncomfortable and has not had any narcotics since 1 AM. And given her baseline dose I am worried that she may be in a little withdrawal at this time. We do need to get her more comfortable. Review of Systems All systems reviewed & are unremarkable except as noted in HPI and below PFSH All Active Problems Chronic narcotic dependence (Acute) Multiple myeloma in remission (Acute) on revlimid GERD (gastroesophageal reflux disease) (Chronic) Chronic hepatitis B (Acute 12/29/16) Onychomycosis (Chronic) Radiation vulvitis (Chronic) Pain from bone metastases (Acute) maintained on morphine ER; managed by [facility] [place]. SBO (small bowel obstruction) (Acute) Medical History Disseminated zoster hospitalized at [facility], on lifelong valacyclovir Malaria Malignant neoplasm of uterus 04/01/11 [facility]; ADENOCARCINOMA; ENDOMETROID TYPE ESTIMATED FIGO GRADE I. 04/2011 Hyst and BSO [place] [facility] Path= stage A1, Gr 11 Psoriasis [place] auricular syndrome Small bowel obstruction (03/2021) admitted, resolved without intervention Surgical History H/O breast biopsy Right, 1o'clock, 12cm from nipple, US-guided needle core biopsy: negative for malignancy. fibroadipose tissue with assoc hemorrhage. History of cholecystectomy Hx of cataract surgery Hx of cholecystectomy S/P hysterectomy Family History Mother , AGE 84 No problems noted. Father , AGE 92 No problems noted. Sister , AGE 79 No problems noted. Sister No problems noted. Brother , AGE 68 Stomach cancer Brother No problems noted. Brother No problems noted. Brother No problems noted. Brother No problems noted. Son No problems noted. 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 Pets and animals: No Sexually active: No Do you think of yourself as: straight/heterosexual Current gender identity: female What is your relationship status?: How often do you talk on the phone with friends or family?: twice per week How often do you get together with friends or relatives?: decline to answer How often do you attend oriental orthodox or orthodoxy services?: decline to answer Do you belong to any clubs or organized social groups?: no Panel score (0-1 are the most socially isolated patients): 1 What type of physical activity do you participate in: walking and running Duration: 30-45 minutes/day Frequency: 3-4 times per week Christianne/Restoration: Caodaism Special christianne needs: No Seatbelt use: always Drive intox or ride w/intox combine driver: No Do you feel safe at home: Yes Do you feel safe in your relationship?: Yes Victim of physical abuse: No Victim of emotional abuse: No Victim of sexual abuse: No Meds Allergies and Home Medications Allergies Allergy/AdvReac Type Severity Reaction Status Date / Time iodine Allergy Intermediate Verified 03/17/22 14:10 DUST Allergy Unknown Uncoded 03/17/22 14:10 MOLD AND SMUT Allergy Unknown Uncoded 03/17/22 14:10 Home Medications Medication Instructions Recorded Confirmed Type aspirin 81 mg chewable tablet 81 mg PO DAILY 08/19/14 07/29/22 History (Aspirin Low-Strength) valacyclovir 500 mg tablet 500 mg PO BID #60 tabs 05/25/18 07/29/22 Rx lenalidomide 5 mg capsule 5 mg PO DAILY 02/21/19 07/29/22 History (Revlimid) omeprazole 40 mg capsule,delayed 40 mg PO DAILY PRN #90 tab-caps 02/21/19 07/29/22 History release gabapentin 300 mg capsule 600 mg PO BID #60 caps 03/11/21 07/29/22 Rx morphine 60 mg tablet,extended 60 mg PO BID 03/26/21 07/29/22 History release nystatin 100,000 unit/gram topical 1 applic topical BID #30 grams 01/01/22 07/29/22 Rx cream triamcinolone acetonide 0.1 % 1 applic topical BID #30 grams 01/01/22 07/29/22 Rx topical cream naloxegol 12.5 mg tablet (Movantik) 12.5 mg PO QAM #30 tabs 03/17/22 07/29/22 Rx duloxetine 30 mg capsule,delayed 30 mg PO DAILY #30 caps 05/28/22 07/29/22 Rx release Exam Chest Chest: normal inspection of the chest Resp Effort & Inspection: normal respiratory effort and able to speak in complete sentences Auscultation: clear to auscultation bilaterally Cardio Rate: regular rate Rhythm: regular rhythm GI Other: soft no peritonitis pain in lower abdomen no BS Extrem General: no clubbing, cyanosis or edema Results Labs 07/29/22 00:27 07/29/22 06:05 Labs: Laboratory Results - last 24 hr 07/29/22 07/29/22 07/29/22 00:27 00:27 00:27 WBC 5.67 RBC 3.97 Hgb 13.4 Hct 37.2 MCV 94 MCH 33.8 H MCHC 36.0 RDW 12.3 Plt Count 189 MPV 8.9 Immature Gran % 0.5 Neutrophils % 68.5 Lymphocytes % 20.8 Monocytes % 8.6 Eosinophils % 0.9 Basophils % 0.7 Nucleated RBC % 0.0 Absolute Neutrophils 3.88 Absolute Lymphocytes 1.18 L Absolute Monocytes 0.49 Absolute Eosinophils 0.05 Absolute Basophils 0.04 VBG Lactate 2.1 H Sodium 126 L Potassium 3.3 L Chloride 90 L Carbon Dioxide 29.3 Anion Gap 6.7 BUN 11 Creatinine 0.8 Est GFR (CKD-EPI 2020) 78.24 Glucose 116 H Calcium 8.8 Magnesium Total Bilirubin 0.4 AST 37 ALT 33 Alkaline Phosphatase 71 Total Protein 8.1 Albumin 3.8 Lipase 29 Urine Color Urine Clarity Urine pH Ur Specific [place] Urine Protein Urine Ketones Urine Blood Urine Nitrite Urine Bilirubin Urine Urobilinogen Ur Leukocyte Esterase Urine RBC Urine WBC Ur Epithelial Cells Urine Crystals Urine Bacteria Urine Mucus Ur Culture Indicated? Urine Glucose 07/29/22 07/29/22 07/29/22 00:27 01:46 06:05 WBC RBC Hgb Hct MCV MCH MCHC RDW Plt Count MPV Immature Gran % Neutrophils % Lymphocytes % Monocytes % Eosinophils % Basophils % Nucleated RBC % Absolute Neutrophils Absolute Lymphocytes Absolute Monocytes Absolute Eosinophils Absolute Basophils VBG Lactate Sodium 128 L Potassium 4.2 Chloride 95 L Carbon Dioxide 26.1 Anion Gap 6.9 BUN 8 Creatinine 0.7 Est GFR (CKD-EPI 2020) 91.83 Glucose 105 Calcium 8.4 L Magnesium 2.0 Total Bilirubin AST ALT Alkaline Phosphatase Total Protein Albumin Lipase Urine Color Yellow Urine Clarity Clear Urine pH 7.0 Ur Specific [place] 1.015 Urine Protein Negative Urine Ketones Negative Urine Blood Trace-intact H Urine Nitrite Negative Urine Bilirubin Negative Urine Urobilinogen 0.2 Ur Leukocyte Esterase Negative Urine RBC 0-2 Urine WBC 0-2 Ur Epithelial Cells Rare Urine Crystals Negative Urine Bacteria Rare Urine Mucus Negative Ur Culture Indicated? No Urine Glucose Negative Last Vital Signs Temp 37.5 C 07/29/22 06:19 Pulse 77 07/29/22 06:19 Resp 18 07/29/22 06:19 BP 184/90 H 07/29/22 06:19 Pulse Ox 99 07/29/22 06:19 Time Spent Time spent with Patient: 55-74 minutes Time was spent: preparing to see the patient(eg.review tests), obtaining and/or reviewing separately otained hiistory, ordering medications,tests, procedures, referring, communicating with other health progressive care manager, indepentently interpreting results, counseling the patient and care coordination
[2022-07-29] MEDS: Pantoprazole 40 MG VIAL IVP (11:31)
[2022-07-29] MEDS: Methylnaltrexone 12 MG/0.6 ML VIAL 8 MG SC (11:32)
[2022-07-29 12:55] LABS: Lab Add On Test DONE
[2022-07-29 13:06] LABS: C-Reactive Protein 0.13 mg/dL (0.0-0.3)
[2022-07-29] MEDS: LORazepam 2 MG/ML VIAL 0.5 MG IVP (21:47)
[2022-07-30] VITALS (10 sets, daily range): BP systolic 153–204; BP diastolic 71–87; PULSE 65–85; RESP 16–20; TEMP 36.5–36.9; O2SAT 99–100
[2022-07-30] MEDS: ACETAMINOPHEN 1,000 MG/100 ML BTL 400 MG IVPB ×4 (01:15→23:50)
[2022-07-30] MEDS: POTASSIUM CHLORIDE/D5-0.45NACL 1,000 ML 80 MEQ IV ×2 (01:16→11:16)
[2022-07-30 07:02] LABS: Anion Gap 6.4 mmol/L (3-11); BUN 9 mg/dL (7-18); CO2 30.6 mmol/L (21.0-32.0); CREATININE 0.9 mg/dL (0.55-1.02); Calcium 8.3 mg/dL (8.5-10.1); Chloride 99 mmol/L (98-107); Estimated GFR 67.92 (mL/min/1.73m2); Glucose 108 mg/dL (74-106); Magnesium 2.2 mg/dL (1.8-2.4); Potassium 3.4 mmol/L (3.5-5.1); Sodium 136 mmol/L (136-145)
--- NOTE | 2022-07-30 09:06 | PDOC.CMPRO ---
- If Service Date Differs Date of service: 07/30/22 Time of Service: 09:06 Care Management Progress Note S/O:Reyna was sitting up in a chair when CM met with her.She informed CM that her NG tube is very uncomfortable and she hopes that it can be removed soon. Reyna remains NPO. She stated that her pain is well managed and that she has had several bowel movements. Reyna also shared that she is lonely at [facility]. She has no family here except for her . Reyna is from [facility] and her extended family is there. She has one son, but he lives in [place] and does not get to visit often as he has a family of his own and works. A: Reyna is a 71 year old woman admitted on 07/29/22 with a SBO P:Anticipate Reyna will be discharged home with no new services. She will follow up with her surgeon and plan of care and transport with family. CM will follow and assess for discharge planning concerns.
--- NOTE | 2022-07-30 09:45 | DI.RAD_ITS ---
Exam(s) XR ABDOMEN FLAT UPRIGHT EXAM: 2D digital imaging was performed. CLINICAL HISTORY: sbo. COMPARISON: CR XR ABDOMEN FLAT UPRIGHT from 07/29/[address] ABDOMEN PELVIS WO from 07/29/2022 TECHNIQUE: Supine and uprightSupine and Lateral views of the abdomen were performed. FINDINGS: BOWEL GAS PATTERN: Nasogastric tube again noted within the stomach. Gas scattered in small and large bowel. Mild dilatation of central small bowel. No evidence of pneumatosis. No free air. Surgical clips right upper quadrant. CALCIFICATIONS: No urinary tract calcifications. OSSEOUS STRUCTURES: Degenerative changes and scoliosis. Chronic appearing sclerotic lesion again not ed in the left ilium. Visualized portions of chest: Unremarkable. IMPRESSION: Mild small bowel dilatation. DATA REPOSITORY: RADIATION DOSE DELIVERED:
[2022-07-30] MEDS: MORPHine 2 MG/ML SYR IVP ×3 (10:16→21:53)
[2022-07-30] MEDS: Pantoprazole 40 MG VIAL IVP (10:17)
--- NOTE | 2022-07-30 11:19 | W.PM.PROGNOT ---
Date of Service Date of service: 07/30/22 Time of Service: 11:19 Assessment and Plan Assessment and plan (1) SBO (small bowel obstruction): Status: Acute Assessment and plan: Patient did have another bowel movement today. 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 She has been up and walking today. Patient is encouraged to walk She can have ice chips and hard candies. Patient would like me to discuss her care with her . He will be there at 1:00 tomorrow and I will try to meet him at that time. Patient looks much better today (2) Chronic narcotic dependence: Status: Acute Assessment and plan: Patient is trying to wean herself off narcotics. She notes she has a lot of leg pain at night still but gets around during the day She continue to work with Dr. Abrams for this. (3) Multiple myeloma in remission: Status: Acute Assessment and plan: We are currently holding her medication. (4) GERD (gastroesophageal reflux disease): Status: Chronic Qualifiers: Esophagitis presence: esophagitis presence not specified Qualified Code(s): K21.9 - Gastro-esophageal reflux disease without esophagitis (5) Chronic hepatitis B: Status: Acute (6) HTN (hypertension): Status: Chronic Assessment and plan: Patient is having some elevated blood pressure readings tonight. She is not having any significant amount of pain. She has been making good urine. She is not having any tachycardia. She is not having any fevers. She is not normally on blood pressure meds at home. Patient did receive 5 mg of IV metoprolol with good results in decreasing her blood pressure but not dropping her heart rate. Patient is resting comfortably. Please see nurses notes for numbers. We will continue her on IV metoprolol until she can tolerate oral Subjective Subjective Interval history since last seen: Pt is doing well. no headaches. No CP or SOB. no productive cough. no dysuria. no leg pain or swelling. Patient has had good urine output. She complains of some occasional crampy pain. Patient had 2 bowel movements yesterday. She is having 450 on her NG tube so far today. Upright was read as continued SBO. He was up walking today and does have a few bowel sounds in her abdomen Exam Resp Effort & Inspection: normal respiratory effort and able to speak in complete sentences Auscultation: clear to auscultation bilaterally Cardio Rate: regular rate Rhythm: regular rhythm GI Palpation: soft Other: No pain currently. Less distention today. She has had a couple bowel movements. She does have a few small scattered bowel sounds this afternoon. Extrem General: no clubbing, cyanosis or edema Objective Last Vital Signs Temp 36.7 C 07/30/22 11:11 Pulse 73 07/30/22 11:11 Resp 20 07/30/22 11:11 BP 161/71 H 07/30/22 11:11 Pulse Ox 100 07/30/22 11:11 Laboratory Results - last 24 hr 07/29/22 07/29/22 07/30/22 00:27 Unknown 06:05 Sodium 136 Potassium 3.4 L Chloride 99 Carbon Dioxide 30.6 Anion Gap 6.4 BUN 9 Creatinine 0.9 Est GFR (CKD-EPI 2020) 67.92 Glucose 108 H Calcium 8.3 L Magnesium 2.2 C-Reactive Protein 0.13 Add-On Test Request DONE Time Spent with Patient Time Spent with Patient: 25-34 minutes Time was spent: preparing to see the patient(eg.review tests), obtaining and/or reviewing separately otained hiistory, ordering medications,tests, procedures, referring, communicating with other health occasional caregiver, indepentently interpreting results, counseling the patient and care coordination
[2022-07-30] MEDS: POTASSIUM CHLORIDE 10 MEQ/100 ML BAG 100 MEQ IVPB (13:52)
[2022-07-30] MEDS: Normal Saline Flush 10 ML SYR IVP (15:17)
[2022-07-30] MEDS: LORazepam 2 MG/ML VIAL 0.5 MG IVP (21:53)
[2022-07-30] MEDS: Metoprolol 5 MG/5 ML VIAL IVP (21:53)
[2022-07-31] VITALS (14 sets, daily range): BP systolic 124–184; BP diastolic 75–102; PULSE 61–80; RESP 15–20; TEMP 36.8–37.6; O2SAT 97–100
[2022-07-31] MEDS: POTASSIUM CHLORIDE/D5-0.45NACL 1,000 ML 80 MEQ IV ×2 (01:31→14:54)
[2022-07-31 06:29] LABS: Abs Immature Grans 0.01 10^3/uL (0.0-0.06); Absolute Basophil Count 0.02 10^3/uL (0.0-0.2); Absolute Eosinophil Count 0.06 10^3/uL (0.0-0.7); Absolute Lymphocyte Count 1.32 10^3/uL (1.2-3.4); Absolute Monocyte Count 0.37 10^3/uL (0.1-0.8); Absolute Neutrophil Count 2.28 10^3/uL (1.2-6.7); Basophils % 0.5; Eosinophils % 1.5; HGB 12.5 g/dL (11.2-15.7); Immature Grans % 0.2; Lymphocytes % 32.5; MCH 33.4 pg (27.0-33.0); MCHC 35.7 % (32.0-36.0); MCV 94 fL (80-95); MPV 9.1 fL (8.0-11.0); Monocytes % 9.1; Neutrophils % 56.2; Platelet Count 203 10^3/uL (130-400); RBC 3.74 10^6/uL (3.93-5.22); RDW 12.6 % (11.7-14.6); RDW-SD 42.7 fL; WBC 4.06 10^3/uL (4.4-10.8)
[2022-07-31 06:55] LABS: Anion Gap 7.2 mmol/L (3-11); BUN 6 mg/dL (7-18); C-Reactive Protein 0.86 mg/dL (0.0-0.3); CO2 28.8 mmol/L (21.0-32.0); CREATININE 0.7 mg/dL (0.55-1.02); Calcium 8.7 mg/dL (8.5-10.1); Chloride 101 mmol/L (98-107); Estimated GFR 91.83 (mL/min/1.73m2); Glucose 117 mg/dL (74-106); Magnesium 2.1 mg/dL (1.8-2.4); Sodium 137 mmol/L (136-145)
[2022-07-31] MEDS: ACETAMINOPHEN 1,000 MG/100 ML BTL 400 MG IVPB ×2 (07:51→16:21)
--- NOTE | 2022-07-31 08:15 | DI.RAD_ITS ---
Exam(s) XR ABDOMEN FLAT UPRIGHT EXAM: 2D digital imaging was performed. CLINICAL HISTORY: sbo. COMPARISON: CR XR ABDOMEN FLAT UPRIGHT from 07/30/2022 TECHNIQUE: Supine and upright views of the abdomen was performed. Three images were obtained. FINDINGS: LUNG BASES: Clear. BOWEL GAS PATTERN: Nondistended. FREE AIR: None. CALCIFICATIONS: No radiopaque calcifications. OSSEOUS STRUCTURES: Within normal limits for the patient's age. There is a left convex thoracolumbar scoliosis. There is an unchanged sclerotic focus in the left ilium. OTHER FINDINGS: The tip of the nasogastric tube is below the diaphragms in the stomach. There are rosenberg rgical clips in the right upper quadrant of the abdomen. IMPRESSION: No evidence of an acute abdomen. DATA REPOSITORY: RADIATION DOSE DELIVERED:
--- NOTE | 2022-07-31 09:11 | DI.VRAD_ITS ---
PROCEDURE INFORMATION: Exam: XR Abdomen Exam date and time: 07/31/2022 9:02 AM Age: 71 years old Clinical indication: Other: Sbo TECHNIQUE: Imaging protocol: Radiologic exam of the abdomen. Views: 2 Views. Upright and supine views. COMPARISON: CR XR ABDOMEN FLAT UPRIGHT 07/30/2022 9:44 AM FINDINGS: Tubes, catheters and devices: Nasogastric tube to the stomach. Gastrointestinal tract: Nonspecific bowel gas pattern, without gaseous distention. Intraperitoneal space: Normal. No free air. Bones/joints: Scoliotic curvature of the thoracolumbar spine. Stable chronic appearing sclerotic lesion left ilium. IMPRESSION: Nonspecific bowel gas pattern, without gaseous distention. Dictated and Authenticated by: Ginny Smith MD. Ordering:NAM Ring MD
[2022-07-31] MEDS: Pantoprazole 40 MG VIAL IVP (09:48)
[2022-07-31] MEDS: Metoprolol 5 MG/5 ML VIAL IVP ×3 (09:49→21:33)
[2022-07-31] MEDS: MORPHine 2 MG/ML SYR IVP ×3 (10:23→18:13)
--- NOTE | 2022-07-31 11:36 | PGE_ITS ---
Date of Service Date of service: 07/31/22 Time of Service: 11:36 Assessment and Plan Assessment and plan (1) SBO (small bowel obstruction): Status: Acute Assessment and plan: -resolving d/c NGT clears encourage walking resume valacyclovir & lenalidomide &duloxatine (2) HTN (hypertension): Status: Chronic Assessment and plan: been consistently elevated added atenolol (3) Chronic narcotic dependence: Status: Acute Assessment and plan: Patient is interested in getting off of her chronic narcotics increase nerutontin to TID celebrex q 12 Duloxatine (4) Multiple myeloma in remission: Status: Acute (5) GERD (gastroesophageal reflux disease): Status: Chronic Qualifiers: Esophagitis presence: esophagitis presence not specified Qualified Code(s): K21.9 - Gastro-esophageal reflux disease without esophagitis (6) Chronic hepatitis B: Status: Acute (7) Pain from bone metastases: Status: Acute Subjective Subjective Interval history since last seen: Pt is doing well. no headaches. No CP or SOB. no productive cough. no dysuria. no leg pain or swelling. She has been passing gas today. She has been tolerating ice chips. She has had her NG tube clamped for multiple hours. She has been walking adn passing gas and had BM today. Will d/c NGT adn starts clears. Abdomen is soft w/ good BS. Exam Narrative Exam Narrative: PHYSICAL EXAM GENERAL APPEARANCE: Alert, healthy appearance, oriented, x 3,? in no acute distress LUNGS: normal respiration/normal chest excursion. ?Clear to auscultation bilaterally. ? ?HEART: Regular rate and rhythm. no murmurs EXTREMITY: No edema or cyanosis.? no leg pain, redness, swelling.? ABDOMEN: soft and non-tender to palpation.? Normal bowel sounds.? Objective Last Vital Signs Temp 37 C 07/31/22 10:18 Pulse 72 07/31/22 10:19 Resp 20 07/31/22 10:18 BP 178/83 H 07/31/22 10:19 Pulse Ox 100 07/31/22 10:18 Laboratory Results - last 24 hr 07/31/22 07/31/22 06:20 06:20 WBC 4.06 L RBC 3.74 L Hgb 12.5 Hct 35.0 L MCV 94 MCH 33.4 H MCHC 35.7 RDW 12.6 Plt Count 203 MPV 9.1 Immature Gran % 0.2 Neutrophils % 56.2 Lymphocytes % 32.5 Monocytes % 9.1 Eosinophils % 1.5 Basophils % 0.5 Nucleated RBC % 0.0 Absolute Neutrophils 2.28 Absolute Lymphocytes 1.32 Absolute Monocytes 0.37 Absolute Eosinophils 0.06 Absolute Basophils 0.02 Sodium 137 Potassium 3.0 L Chloride 101 Carbon Dioxide 28.8 Anion Gap 7.2 BUN 6 L Creatinine 0.7 Est GFR (CKD-EPI 2020) 91.83 Glucose 117 H Calcium 8.7 Magnesium 2.1 C-Reactive Protein 0.86 H Time Spent with Patient Time Spent with Patient: 35-49 minutes Time was spent: preparing to see the patient(eg.review tests), obtaining and/or reviewing separately otained hiistory, ordering medications,tests, procedures, r eferring, communicating with other health care program director, indepentently interpreting results, counseling the patient and care coordination
[2022-07-31] MEDS: POTASSIUM CHLORIDE 10 MEQ/100 ML BAG 100 MEQ IVPB ×2 (11:54→15:11)
[2022-07-31] MEDS: Celecoxib 100 MG CAP PO (20:30)
[2022-07-31] MEDS: Normal Saline Flush 10 ML SYR IVP ×2 (20:31→22:47)
[2022-07-31] MEDS: Gabapentin 300 MG CAP 600 MG PO (20:47)
[2022-07-31] MEDS: valACYclovir 500 MG TAB PO (21:24)
[2022-07-31] MEDS: LORazepam 2 MG/ML VIAL 0.5 MG IVP (22:47)
[2022-08-01] VITALS (12 sets, daily range): BP systolic 134–181; BP diastolic 75–96; PULSE 58–80; RESP 15–21; TEMP 36.2–37; O2SAT 97–100
[2022-08-01] MEDS: MORPHine 2 MG/ML SYR IVP (01:39)
[2022-08-01] MEDS: POTASSIUM CHLORIDE/D5-0.45NACL 1,000 ML 80 MEQ IV (04:10)
[2022-08-01 06:42] LABS: Anion Gap 6.9 mmol/L (3-11); BUN 4 mg/dL (7-18); CO2 28.1 mmol/L (21.0-32.0); CREATININE 0.7 mg/dL (0.55-1.02); Calcium 8.3 mg/dL (8.5-10.1); Chloride 106 mmol/L (98-107); Estimated GFR 91.83 (mL/min/1.73m2); Glucose 115 mg/dL (74-106); Magnesium 2.1 mg/dL (1.8-2.4); Sodium 141 mmol/L (136-145)
[2022-08-01 06:53] LABS: Potassium 2.8 mmol/L (3.5-5.1)
[2022-08-01] MEDS: Polyethylene Glycol 3350 17 GM PACKET PO (08:02)
[2022-08-01] MEDS: Gabapentin 300 MG CAP 600 MG PO ×3 (08:02→23:44)
[2022-08-01] MEDS: Atenolol 25 MG TAB 12.5 MG PO ×2 (08:03→21:57)
[2022-08-01] MEDS: DULoxetine 30 MG CAP PO (08:06)
[2022-08-01] MEDS: Celecoxib 100 MG CAP PO ×2 (08:06→21:58)
[2022-08-01] MEDS: valACYclovir 500 MG TAB PO ×2 (08:11→21:58)
[2022-08-01] MEDS: POTASSIUM CHLORIDE 10 MEQ/100 ML BAG 100 MEQ IVPB ×3 (09:05→11:25)
[2022-08-01] MEDS: Normal Saline Flush 10 ML SYR IVP (10:26)
[2022-08-01] MEDS: Pantoprazole 40 MG VIAL IVP (10:26)
[2022-08-01] MEDS: Metoprolol 5 MG/5 ML VIAL IVP (10:28)
--- NOTE | 2022-08-01 14:09 | PGE_ITS ---
Date of Service Date of service: 08/01/22 Time of Service: 12:00 Assessment and Plan Assessment and plan (1) HTN (hypertension): Status: Chronic Assessment and plan: Atenolol 12.5 twice daily (2) Chronic narcotic dependence: Status: Acute Assessment and plan: - The patient is used minimal narcotics since she has been in the hospital. She is kind of detoxed so to speak because of her n.p.o. status. We have adjusted her medications to try to get her on a nonnarcotic pain regimen. This may account for the elevation of her blood pressure due to decreased amount of narcotic use and will need to be monitored closely in the outpatient so that we are not overtreating her blood pressure. But in the meantime she seems to be tolerating the atenolol well. -I do feel that narcotics to played some extent in her developing a bowel obstruction. She definitely has scar tissue from her hysterectomy. But it sounds like she has been struggling struggling with constipation from the pain meds. She may actually notice some diarrhea at this time because she is not taking the narcotics until her body adjusts to not having them on board. -Discussed with the patient and her . I will also send a message to Dr. Gama. Patient would prefer to not be on narcotics. Hopefully she continues to do well without them. She has not seemed to require a lot since she has been in the hospital and is not complaining of significant leg pain today (3) Multiple myeloma in remission: Status: Acute (4) GERD (gastroesophageal reflux disease): Status: Chronic Qualifiers: Esophagitis presence: esophagitis presence not specified Qualified Code(s): K21.9 - Gastro-esophageal reflux disease without esophagitis (5) Chronic hepatitis B: Status: Acute (6) SBO (small bowel obstruction): Status: Acute Assessment and plan: Advance diet to soft Encourage walking Anticipate discharge in a.m. Subjective Subjective Interval history since last seen: Pt is doing well. no headaches. No CP or SOB. no productive cough. no dysuria. no leg pain or swelling. Patient is tolerating clear liquids. She reports she is liquid bowel movements 3 times today. Patient's only had liquids for the past 24 hours. I did review with nursing her narcotic use. Yesterday she had 6 mg morphine IV push. So far today she has only had 2 mg IV morphine push. I did increase her gabapentin to 3 times a day. I started her on Celebrex twice a day. As well as scheduled Tylenol every 8 hours. I encouraged her to do Robaxin instead of narcotics. And may be a small dose of oxycodone at bedtime. Exam Const Other: Abdomen is soft and nontender today. She has had multiple bowel movements. She is tolerating clears. Lungs are clear bilaterally Heart is regular rate and rhythm. Blood pressures been better since we started the atenolol. Lower extremities-no pain or swelling Objective Last Vital Signs Temp 36.2 C L 08/01/22 11:44 Pulse 65 08/01/22 11:44 Resp 21 08/01/22 11:44 BP 181/82 H 08/01/22 11:44 Pulse Ox 100 08/01/22 11:44 Laboratory Results - last 24 hr 08/01/22 06:08 Sodium 141 Potassium 2.8 L* Chloride 106 Carbon Dioxide 28.1 Anion Gap 6.9 BUN 4 L Creatinine 0.7 Est GFR (CKD-EPI 2020) 91.83 Glucose 115 H Calcium 8.3 L Magnesium 2.1 Time Spent with Patient Time Spent with Patient: 35-49 minutes Time was spent: preparing to see the patient(eg.review tests), obtaining and/or reviewing separately otained hiistory, ordering medications,tests, procedures, referring, communicating with other health district manager primary care sales, indepentently interpreting results, counseling the patient and care coordination
[2022-08-01] MEDS: LORazepam 2 MG/ML VIAL 0.5 MG IVP ×2 (15:07→21:58)
--- NOTE | 2022-08-01 17:51 | NUR.NOTE ---
Nursing Note: Pt refusing SCDs. Pt educated on benefits of use. Pt refusing.
[2022-08-01] MEDS: oxyCODONE 5 MG TAB PO ×2 (17:55→23:43)
--- NOTE | 2022-08-01 19:05 | NUR.NOTE ---
Nursing Note: Pt requesting anti-anxiety medication, stating, I feel shaky also c/o generalized pain. Pt advised that she can have ativan again after 8 pm. Per order, Robaxin offered with pt questioning whether medication will help her feel less shaky. Pt advised that oxycodone is also available but preferably after robaxin, per physician order. Pt agreeable to try the oxycodone as the oral medication will provide longer relief; declined robaxin.
[2022-08-01] MEDS: traZODone 50 MG TAB PO (21:58)
[2022-08-01] MEDS: Methocarbamol 750 MG TAB PO (21:58)
[2022-08-02] MEDS: Acetaminophen 500 MG TAB 1000 MG PO (00:14)
[2022-08-02 06:34] VITALS: BP 147/84; PULSE 86; RESP 16; TEMP 36.8; O2SAT 97
[2022-08-02 07:36] VITALS: BP 112/61; PULSE 69; RESP 17; TEMP 36.6; O2SAT 96
[2022-08-02] MEDS: Celecoxib 100 MG CAP PO (08:02)
[2022-08-02] MEDS: Polyethylene Glycol 3350 17 GM PACKET PO (08:02)
[2022-08-02] MEDS: Gabapentin 300 MG CAP 600 MG PO (08:02)
[2022-08-02] MEDS: valACYclovir 500 MG TAB PO (08:02)
[2022-08-02] MEDS: Atenolol 25 MG TAB 12.5 MG PO (08:02)
[2022-08-02] MEDS: DULoxetine 30 MG CAP PO (08:02)
[2022-08-02] MEDS: Omeprazole 20 MG CAPCR 40 MG PO (08:02)
--- NOTE | 2022-08-02 09:22 | PDOC.CMPRO ---
- If Service Date Differs Date of service: 08/02/22 Time of Service: 09:22 Care Management Progress Note S/O:Reyna was sitting up in a chair when CM met with her. A: Reyna is a 71 year old woman admitted on 07/29/22 with a SBO P:Anticipate Vi will be discharged home with no new services. She will follow up with her surgeon and plan of care and transport with family. CM will follow and assess for discharge planning concerns.
--- NOTE | 2022-08-02 11:12 | DSE_ITS ---
Date of service: 08/02/22 Time of Service: 11:12 DS: Diagnosis Discharge Diagnosis (1) HTN (hypertension): Status: Chronic (2) Chronic narcotic dependence: Status: Acute (3) Multiple myeloma in remission: Status: Acute (4) GERD (gastroesophageal reflux disease): Status: Chronic (5) Chronic hepatitis B: Status: Acute (6) SBO (small bowel obstruction): Status: Acute Discharge Plan Disposition Patient Disposition: Home Condition: Improving Discharge Details Reason For Visit: SBO Admit Date/Time: 07/29/22 01:56 Admit Provider: Macarena Castrejon Attending Provider: Macarena Castrejon Primary Care Provider: Reyna Abrams Hospital Course Hospital Course: see addendum Home Meds and New Rx's Prescriptions: New acetaminophen 500 mg Tablet 1,000 mg PO Q8H PRN PRNQty: 60 0RF celecoxib [Celebrex] 100 mg capsule 100 mg PO BID Qty: 60 0RF Rx Instructions: take in 7am and 7pm methocarbamol 750 mg tablet 750 mg PO QID Qty: 120 0RF acetaminophen [Tylenol Extra Strength] 500 mg tablet 1,000 mg PO Q6H PRNQty: 60 0RF Rx Instructions: take at noon and bedtime oxycodone 5 mg tablet 5 mg PO Q6H PRNQty: 20 0RF polyethylene glycol 3350 [Miralax] 17 gram/dose powder 17 g PO HS Qty: 238 0RF Rx Instructions: take a dose at bedtime if no BM during the day Continued triamcinolone acetonide 0.1 % cream 1 applic TP BID Qty: 30 1RF nystatin 100,000 unit/gram cream 1 applic TP BID Qty: 30 1RF lenalidomide [Revlimid] 5 mg capsule 5 mg PO DAILY omeprazole 40 mg capsule,delayed release(DR/EC) 40 mg PO DAILY PRNQty: 90 Patient Comments: 04/09/16 takes prn. mdh duloxetine 30 mg capsule,delayed release(DR/EC) 30 mg PO DAILY Qty: 30 5RF aspirin [Aspirin Low-Strength] 81 MG tablet,chewable 81 mg PO DAILY Patient Comments: 09-21-17 pt reports that she takes this med every other day. hb valacyclovir 500 mg tablet 500 mg PO BID Qty: 60 3RF Changed gabapentin 300 mg capsule 600 mg PO TID Qty: 60 3RF Discontinued Movantik 12.5 mg tablet 12.5 mg PO QAM Qty: 30 12RF morphine 60 mg Tablet Extended Release 60 mg PO BID Discharge Instructions Instructions: GERD (Gastroesophageal Reflux Disease) (DC), Chronic Hypertension (DC) Additional Instructions: Gastrointestinal Soft Diet Overview Overview What is a gastrointestinal soft diet? This diet is soft in texture, low in fiber, and easy to digest. The goal is to decrease) ?in the bowel that may cause and discomfort. This diet is often used after abdominal surgery or as a transitional diet after flares. Meats & Meat Substitutes ? Foods Allowed: Chicken, turkey, fish, tender cuts of beef and pork, ground meats, eggs, creamy nut butters, tofu, skinless hot dogs, sausage patties without whole spices ? Foods to Avoid : Tough, fibrous meats with gristle, meat with casings (hot dogs, sausage, kielbasa), lunch meats with whole spices, shellfish, beans, chunky peanut butter, nuts Fruits and Juices ? Foods Allowed: Fruit juices without pulp, banana, avocado, applesauce, canned peaches and pears, cooked fruit without the skin/seeds.? Ground or over- cooked fruits.? Fruits ground finely in a ?smoothie?. ? Foods to Avoid: Juices with pulp, fresh fruit (except banana and avocado), dried fruits, canned fruit cocktail and pineapple, coconut, frozen/thawed berries Vegetables ? Foods Allowed: Well-cooked or canned vegetables, potatoes without skin, tomato sauces, vegetable juice ? Foods to Avoid: Raw vegetables, all corn, all mushrooms, stewed tomatoes, potato skins, stir-orozco vegetables, sauerkraut, pickles, olives, all dried beans, peas, and legumes Cereals and Grains ? Foods Allowed: Low- fiber dry or cooked cereals (less than 2 grams fiber per serving), white rice, pasta, macaroni, or noodles ? Foods to Avoid: Cereals with nuts, berries, dried fruits, whole grain cereals, bran cereals, granola, brown or wild rice, whole grain pasta Breads and Crackers ? Foods Allowed: White/refined breads and rolls, plain bagel, toast, plain multi craft maintenance technician ckers, leobardo crackers ? Foods to Avoid: Whole grain breads- including white whole grain; bread/ rolls with raisins, nuts or seeds, multi-grain crackers Dairy ? Foods Allowed: Milk, cheese, yogurt, milkshakes, pudding, ice cream, cottage cheese, sherbet ;?lactose free or low lactose versions if lactose intolerant ? Foods to Avoid: Dairy product mixed with fresh fruit (except banana), berries, nuts or seeds Desserts ? Foods Allowed: Plain cake, pudding, custard, ice cream, sherbet, gelatin, fruit whips ? Foods to Avoid: Any dessert that contains nuts, dried fruits, coconut, or fruits with seeds Herbs and Spices ? Foods Allowed: All ground spices or herbs, salt ? Foods to Avoid: Whole spices such as peppercorns, whole cloves, anise seeds, celery seeds, constantine, mario seeds, and fresh herbs Snacks/Other Foods ? Foods Allowed: Sugar, honey, jelly, mayonnaise, mustard, soy sauce, oil, butter, margarine, marshmallows, cookies without dried fruits or nuts, snack chips and pretzels using refined flours ? Foods to Avoid: Carbonated beverages, jams or jellies with seeds, popcorn After several weeks, slowly start to reintroduce the ?Foods to Avoid? back into your diet unless your doctor has told you otherwise. Try a small portion of one of these foods each day. If it does not bother you within 24 hours, it can be added to your diet. Continue to add new foods in this way. Some people may continue to have food sensitivities and may need to continue to avoid certain foods. If you cannot tolerate a food, avoid that food for a few weeks before you try it again. Guidelines when eating 1.??? Avoid any food that you cannot tolerate or that causes gas, bloating, or stomach pain. 2.??? Make time for your meals. Do not eat while you are in a hurry. Cut your food into small pieces. Chew each bite to a mashed potato consistency. Do not eat when you cannot concentrate on chewing well. 3.??? Drink at least 6-8 cups of fluid per day? Fluids include: water, coffee, tea, juice, milk, popsicles, soups, gelatin, pudding, ice cream, sherbet, and yogurt. In addition, choose caffeine-free beverages more often, especially if yo u are having?diarrhea. 4.??? A daily multivitamin may be recommended if diet is limited in amounts or variety of foods. Do not take any herbal supplements without first checking with your doctor. -stay on a Soft Diet for 5 days. Than transition to a regular diet -F/u w/ Dr. Hamilton in 2 wks -Make sure you are moving your bowels daily. If you do not have a BM during the day, take a dose of Miralax at bedtime. -You may find you are more tired after being in the hospital. Rest as needed. -Fluid- 8-12 glasses of water a day PAIN PLAN -Celebrex 100mg (relieves inflammation). Take a dose in am and than another dose 12 hours later -Tylenol 1000mg (Relieves inflammation). Take a dose at noon and at bedtime -Methocarbamol 800mg (Muscle relaxer). take a dose 3-4 times a day as needed for pain/muscle spasms or jumping -oxcodone 5mg. Can take 1-2 times a day for SEVERE pain that is not relieved by the muscle relaxers. Trazadone 50mg (sleeping pill). Take as needed if you cannot sleep at night Stand Alone Forms: Nursing Discharge Form Referrals: Reyna Abrams MD [Primary Care Provider] - 08/16/22 9:20 am Activity:: Activity as Tolerated Equipment/Supplies:: No Equipment Needed Diet:: see above Discharge Orders Discharge Orders: Discharge Order (Routine); Ordered 08/02/22 Ordered By: María Elena Mcelroy DS: Summary Time Spent with Patient providing and/or coordinating discharge services: Greater than 30 minutes Status at Discharge Functional status at discharge: independent ambulation Overall status at discharge: patient is progressing back to baseline Mental Status: mental status grossly normal Speech and Movement: speech and movement normal Mood: congruent mood Affect: normal affect Exam Const Other: PHYSICAL EXAM GENERAL APPEARANCE: Alert, healthy appearance, oriented, x 3,? in no acute distress HYDRATION: Well hydrated HEAD, EYES, EARS, NECK, THROAT: Head is normocephalic, pupils equal, round, reactive to light and accommodation, ocular movement intact, sclera clear and no jaundice. ?Dentition intact. NECK: no lymphadenopathy.? Trachea midline.? Neck supple.? No JVD LUNGS: normal respiration/normal chest excursion. ?Clear to auscultation bilaterally. ?No wheeze. ?HEART: Regular rate and rhythm. no murmurs EXTREMITY: No edema or cyanosis.? no leg pain, redness, swelling.? Patient states her pain is well controlled on a nonnarcotic pain regimen ABDOMEN: soft and non-tender to palpation.? Normal bowel sounds.? Abdomen is soft and nontender. She is tolerating a soft diet. She has been having bowel movements. Psych Mental Status: mental status grossly normal Speech and Movement: speech and movement normal Mood: congruent mood Affect: normal affect DS: Data Vitals/I&O Vitals and I&O: Vital Signs Temperature 36.6 C 08/02/22 07:36 Temperature Source Tympanic 08/02/22 07:36 Pulse 69 08/02/22 07:36 Pulse Rhythm Regular 08/02/22 08:00 Respiratory Rate 17 08/02/22 07:36 Respiratory Effort Normal, Non-Labored 08/02/22 08:00 Respiratory Depth Normal 08/02/22 08:00 Respiratory Pattern Normal 08/02/22 08:00 Blood Pressure 112/61 08/02/22 07:36 Blood Pressure Position Supine 07/29/22 00:14 Pulse Oximetry 96 08/02/22 07:36 Oxygen Delivery Method Room Air 08/02/22 07:36 Oxygen Flow Rate 0 08/02/22 07:36 Pain Level 0 08/02/22 07:36 Comment tele shows sinus rosas. 08/01/22 04:22 Intake & Output 08/01/22 08/01/22 08/02/22 11:59 23:59 11:59 Intake Total 1398.333 / 1758.333 360 / 6216.149 4786 / 1100 Output Total 1150 / 1350 200 / 1350 Balance 248.333 / 408.333 160 / 033.663 5104 / 1100 Weight 60 kg 61 kg Intake: IV 1198.333 / 7746.460 7488 / 1100 Oral 200 / 560 360 / 560 Output: Urine 950 / 1150 200 / 1150 Stool 200 / 200 Other: Urine Color Yellow Yellow Urine Appearance Cloudy Clear Urine Odor Normal Comment Void x1 in the bedside commode. Mixed with stool. Patient voiding independently. Stool Size Moderate Small Stool Characteristics Soft Liquid Brown Voiding Methods Bedside Commode Toilet PFSH All Active Problems (Updated 07/30/22 @ 22:47 by María Elena Mcelroy DO) HTN (hypertension) (Chronic) Chronic narcotic dependence (Acute) Multiple myeloma in remission (Acute) on revlimid GERD (gastroesophageal reflux disease) (Chronic) Chronic hepatitis B (Acute 12/29/16) Onychomycosis (Chronic) Radiation vulvitis (Chronic) Pain from bone metastases (Acute) maintained on morphine ER; managed by [facility] [place] heme onc. 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 fibroadipose tissue with assoc hemorrhage. History of cholecystectomy Hx of cataract surgery Hx of cholecystectomy S/P hysterectomy Family History Mother , AGE 84 No problems noted. Father , AGE 92 No problems noted. Sister , AGE 79 No problems noted. Sister No problems noted. Brother , AGE 68 Stomach cancer Brother No problems noted. Brother No problems noted. Brother No problems noted. Brother No problems noted. Son No problems noted. 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 Pets and animals: No Sexually active: No Do you think of yourself as: straight/heterosexual Current gender identity: female What is your relationship status?: How often do you talk on the phone with friends or family?: twice per week How often do you get together with friends or relatives?: decline to answer How often do you attend scientologist or caodaism services?: decline to answer Do you belong to any clubs or organized social groups?: no Panel score (0-1 are the most socially isolated patients): 1 What type of physical activity do you participate in: walking and running Duration: 30-45 minutes/day Frequency: 3-4 times per week Christianne/Sabianism: Shinto Special christianne needs: No Seatbelt use: always Drive intox or ride w/intox bookmobile driver: No Do you feel safe at home: Yes Do you feel safe in your relationship?: Yes Victim of physical abuse: No Victim of emotional abuse: No Victim of sexual abuse: No Time Spent with Patient Time Spent with Patient: 45-69 minutes Time was spent: preparing to see the patient(eg.review tests), obtaining and/or reviewing separately otained hiistory, ordering medications,tests, procedures, referring, communicating with other health daycare director, indepentently interpreting results, counseling the patient and care coordination
[2022-08-02 11:13] VITALS: BP 131/76; PULSE 69; RESP 16; TEMP 36.9; O2SAT 100
--- NOTE | 2022-08-02 11:53 | CMDISCH_ITS ---
- If Service Date Differs Date of service: 08/02/22 Time of Service: 11:53 LACE Index Scoring Tool - Questions: Length of Stay (in days): 4 - 6 Acuity (Admit via E.D.?): Yes Comorbidities: Liver or Renal Disease, Metastatic Solid Tumor E.D. Visits: 2 - Answers: Total Score: 14 Risk of Readmission: High Risk Care Management Discharge Reason for Hospitalization: SBO Discharge Plan: Vi will be discharged home with no new services. She will follow up with her surgeon and plan of care and transport with her . CM provided Vi with information re: [facility] [employer] [facility], at her request. While she identified that she does not need any additional services or support at this time, she anticipates a possible need in the future. Patient/Family Education Needs: Review of discharge instructions, limitations, diet, follow up plan and discuss Ask Me Three
== END 2022-08-02 13:21 | disposition home or self-care (01) | DRG 389 ==
LOC: ER 02:46 → MS 02:47
PROVIDERS: Surgery; Admitting Provider Surgery; Emergency Provider Student in an Organized Health Care Education/Training Program; PCP Family Medicine; Visit Provider Surgery
DX: K56.699 Other intestinal obstruction unspecified as to partial versus complete obstruction (principal); B02.21 Postherpetic geniculate ganglionitis; B02.7 Disseminated zoster; C79.51 Secondary malignant neoplasm of bone; E87.1 Hypo-osmolality and hyponatremia; B18.1 Chronic viral hepatitis B without delta-agent; C90.01 Multiple myeloma in remission; F11.20 Opioid dependence, uncomplicated; G89.3 Neoplasm related pain (acute) (chronic); K21.9 Gastro-esophageal reflux disease without esophagitis; Z85.42 Personal history of malignant neoplasm of other parts of uterus; E87.6 Hypokalemia; N76.2 Acute vulvitis; Y84.2 Radiological procedure and radiotherapy as the cause of abnormal reaction of the patient, or of later complication, without mention of misadventure at the time of the procedure; Z79.899 Other long term (current) drug therapy; L40.9 Psoriasis, unspecified; I10 Essential (primary) hypertension; K59.03 Drug induced constipation; T40.2X5A Adverse effect of other opioids, initial encounter
CPT/HCPCS: 36415; 80048; 80053; 83690; 96361; 96365; 96375; 99222; 99231; 99232; 99239; 99285; 71045; 74019; 74176; 81003; 81015; 83605; 83735; 85025; 86140; J0131; J2060; J2270; J2405; J3480

== ENCOUNTER 2022-08-06 01:19 | Outpatient (CLI) | payer MEDICARE, BC, SELFPAY ==
[2022-08-06 12:24] LABS: ALT 55 U/L (14-59); AST 38 U/L (15-37); Albumin 3.6 g/dL (3.4-5.0); Alkaline Phosphatase 94 U/L (46-116); Anion Gap 5.6 mmol/L (3-11); BUN 7 mg/dL (7-18); Bilirubin, Total 0.4 mg/dL (0.2-1.0); CO2 31.4 mmol/L (21.0-32.0); CREATININE 0.7 mg/dL (0.55-1.02); Chloride 95 mmol/L (98-107); Estimated GFR 91.83 (mL/min/1.73m2); Glucose 93 mg/dL (74-106); Sodium 132 mmol/L (136-145)
[2022-08-06 12:36] LABS: Potassium 2.5 mmol/L (3.5-5.1)
== END 2022-08-06 01:20 | disposition home or self-care (01) ==
LOC: LOS 01:20
PROVIDERS: PCP Family Medicine; Visit Provider Family Medicine
DX: I10 Essential (primary) hypertension (principal)
CPT/HCPCS: 36415; 80053

== ENCOUNTER 2022-08-10 12:43 | Outpatient (CLI) | payer MEDICARE, BC, SELFPAY ==
[2022-08-10 12:48] LABS: Anion Gap 5.2 mmol/L (3-11); BUN 12 mg/dL (7-18); CO2 30.8 mmol/L (21.0-32.0); CREATININE 0.8 mg/dL (0.55-1.02); Calcium 9.3 mg/dL (8.5-10.1); Chloride 96 mmol/L (98-107); Estimated GFR 78.24 (mL/min/1.73m2); Glucose 104 mg/dL (74-106); Sodium 132 mmol/L (136-145)
== END 2022-08-10 12:44 | disposition home or self-care (01) ==
LOC: LOS 12:44
PROVIDERS: PCP Family Medicine; Visit Provider Family Medicine
DX: E87.6 Hypokalemia (principal); I10 Essential (primary) hypertension
CPT/HCPCS: 36415; 80048

== ENCOUNTER 2022-08-13 23:05 | Emergency (ER) | payer MEDICARE, BC, SELFPAY ==
[2022-08-13 23:12] VITALS: BP 139/73; PULSE 81; RESP 16; O2SAT 98
--- NOTE | 2022-08-13 23:28 | ED.GENADUL_ITS ---
Discharge Plan Disposition Patient Disposition: Home Discharge Details Chief Complaint: Abd Prob Clinical Impression: Abdominal pain Primary Care Provider: Reyna Abrams ED Provider: Mike Julian Home Meds and New Rx's Prescriptions: No Action triamcinolone acetonide 0.1 % cream 1 applic TP BID Qty: 30 1RF nystatin 100,000 unit/gram cream 1 applic TP BID Qty: 30 1RF polyethylene glycol 3350 [Miralax] 17 gram/dose powder 17 g PO HS PRN (Reason: constipation) Rx Instructions: take a dose at bedtime if no BM during the day buprenorphine HCl 150 mcg film 150 mcg buccal Q12H Qty: 60 0RF lenalidomide [Revlimid] 5 mg capsule 5 mg PO DAILY omeprazole 40 mg capsule,delayed release(DR/EC) 40 mg PO DAILY PRNQty: 90 Patient Comments: 04/09/16 takes prn. md aspirin [Aspirin Low-Strength] 81 MG tablet,chewable 81 mg PO DAILY Patient Comments: 09-21-17 pt reports that she takes this med every other day. hb valacyclovir 500 mg tablet 500 mg PO BID Qty: 60 3RF acetaminophen 500 mg Tablet 1,000 mg PO Q8H PRN PRNQty: 60 0RF Hold Instructions: Changed by Provider celecoxib [Celebrex] 100 mg capsule 100 mg PO BID Qty: 60 0RF Hold Instructions: Changed by Provider Rx Instructions: take in 7am and 7pm methocarbamol 750 mg tablet 750 mg PO QID Qty: 120 0RF Hold Instructions: Changed by Provider acetaminophen [Tylenol Extra Strength] 500 mg tablet 1,000 mg PO Q6H PRNQty: 60 0RF Hold Instructions: Changed by Provider Rx Instructions: take at noon and bedtime gabapentin 300 mg capsule 600 mg PO TID Qty: 60 3RF Hold Instructions: Changed by Provider oxycodone 5 mg tablet 5 mg PO Q6H PRNQty: 20 0RF Hold Instructions: Changed by Provider Discharge Instructions Instructions: Abdominal Pain (ED) Additional Instructions: Please return to the emergency department if you develop worsening symptoms. Please follow-up with your primary care physician Medical Decision Making 71-year-old female history of SBO presents with resolved constipation, gave her prune juice that she was constipated earlier today and now she is having diarrhea and abdominal cramping. Patient is afebrile nontoxic nondistended nonperitoneal. Currently on the commode having a BM. Consider resolving constipation in the setting of chronic opioid use. Must also consider SBO given age and history. Lower suspicion for colitis or appendicitis. Screening labs imaging fluids Zofran close reassessment likely home with close follow-up 1: [address] performed given patient's iodine allergy, limiting detailed scan. Patient does not have clinical evidence of appendicitis or bowel obstruction at this time. Patient had bowel movement at bedside, no vomiting. Abdomen soft nontender nondistended. Afebrile no white count. Feeling better after fluids and Zofran. Likely component of chronic ileus related to opiate use and cramping from diarrhea. Home care instructions and strict return precautions given for worsening symptoms HPI General Date/Time Provider Initiated Documentation: 08/13/22 23:18 . HPI Narrative: 71-year-old female history of SBO presents with abdominal cramping, was constipated earlier today, her gave her some prune juice now she is having some diarrhea. Related Data Home Medications Medication Instructions Recorded Confirmed aspirin 81 mg chewable tablet 81 mg PO DAILY 08/19/14 08/04/22 (Aspirin Low-Strength) valacyclovir 500 mg tablet 500 mg PO BID #60 tabs 05/25/18 08/04/22 lenalidomide 5 mg capsule 5 mg PO DAILY 02/21/19 08/04/22 (Revlimid) omeprazole 40 mg capsule,delayed 40 mg PO DAILY PRN #90 tab-caps 02/21/19 08/04/22 release nystatin 100,000 unit/gram topical 1 applic topical BID #30 grams 01/01/22 08/04/22 cream triamcinolone acetonide 0.1 % 1 applic topical BID #30 grams 01/01/22 08/04/22 topical cream acetaminophen 500 mg tablet 1,000 mg PO Q8H PRN PRN #60 tabs 08/02/22 08/04/22 acetaminophen 500 mg tablet 1,000 mg PO Q6H PRN #60 tabs 08/02/22 08/04/22 (Tylenol Extra Strength) celecoxib 100 mg capsule (Celebrex) 100 mg PO BID #60 caps 08/02/22 08/04/22 gabapentin 300 mg capsule 600 mg PO TID #60 caps 08/02/22 08/04/22 methocarbamol 750 mg tablet 750 mg PO QID #120 tabs 08/02/22 08/04/22 oxycodone 5 mg tablet 5 mg PO Q6H PRN #20 tabs 08/02/22 08/04/22 buprenorphine HCl 150 mcg buccal 150 mcg buccal Q12H #60 ea 08/04/22 08/04/22 film polyethylene glycol 3350 17 17 g PO HS PRN constipation 08/04/22 08/04/22 gram/dose oral powder (Miralax) Previous Rx's Medication Instructions Recorded valacyclovir 500 mg tablet 500 mg PO BID #60 tabs 05/25/18 nystatin 100,000 unit/gram topical 1 applic topical BID #30 grams 01/01/22 cream triamcinolone acetonide 0.1 % 1 applic topical BID #30 grams 01/01/22 topical cream acetaminophen 500 mg tablet 1,000 mg PO Q8H PRN PRN #60 tabs 08/02/22 acetaminophen 500 mg tablet 1,000 mg PO Q6H PRN #60 tabs 08/02/22 (Tylenol Extra Strength) celecoxib 100 mg capsule (Celebrex) 100 mg PO BID #60 caps 08/02/22 gabapentin 300 mg capsule 600 mg PO TID #60 caps 08/02/22 methocarbamol 750 mg tablet 750 mg PO QID #120 tabs 08/02/22 oxycodone 5 mg tablet 5 mg PO Q6H PRN #20 tabs 08/02/22 buprenorphine HCl 150 mcg buccal 150 mcg buccal Q12H #60 ea 08/04/22 film Allergies Allergy/AdvReac Type Severity Reaction Status Date / Time iodine Allergy Intermediate Verified 08/04/22 14:42 DUST Allergy Unknown Uncoded 08/04/22 14:42 MOLD AND SMUT Allergy Unknown Uncoded 08/04/22 14:42 General Stated Complaint: Abd Prob RICKI: 3 Review of Systems Narrative: Review of Systems Constitutional: negative Eyes: negative ENT: negative Cardiovascular: negative Respiratory: negative Gastrointestinal: Constipation, now diarrhea : negative Musculoskeletal: negative Skin: negative Neurologic: negative Psych: negative PFSH All Active Problems (Updated 08/14/22 @ 01:55 by Mike Julian MD) Multiple myeloma in remission (Acute) on revlimid GERD (gastroesophageal reflux disease) (Chronic) Chronic hepatitis B (Acute 12/29/16) Onychomycosis (Chronic) Radiation vulvitis (Chronic) Pain from bone metastases (Acute) maintained on morphine ER; [place] [facility] [place]. 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 [place] to be due to opioid-induced constipation. Resolves with bowel rest. Malaria Malignant neoplasm of uterus 04/01/11 [facility]; ADENOCARCINOMA; ENDOMETROID TYPE ESTIMATED FIGO GRADE I. 04/2011 Hyst and BSO [place] [facility] Path= stage A1, Gr 11 Psoriasis [place] [place] auricular syndrome Surgical History H/O breast biopsy Right, 1o'clock, 12cm from nipple, US-guided needle core biopsy: negative for malignancy. fibroadipose tissue with assoc hemorrhage. History of cholecystectomy Hx of cataract surgery Hx of cholecystectomy S/P hysterectomy Family History Mother , AGE 84 No problems noted. Father , AGE 92 No problems noted. Sister , AGE 79 No problems noted. Sister No problems noted. Brother , AGE 68 Stomach cancer Brother No problems noted. Brother No problems noted. Brother No problems noted. Brother No problems noted. Son No problems noted. 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 Pets and animals: No Sexually active: No Do you think of yourself as: straight/heterosexual Current gender identity: female What is your relationship status?: How often do you talk on the phone with friends or family?: twice per week How often do you get together with friends or relatives?: decline to answer How often do you attend yazidism or anabaptist services?: decline to answer Do you belong to any clubs or organized social groups?: no Panel score (0-1 are the most socially isolated patients): 1 What type of physical activity do you participate in: walking and running Duration: 30-45 minutes/day Frequency: 3-4 times per week Christianne/Lutheran: Spiritism Special christianne needs: No Seatbelt use: always Drive intox or ride w/intox tanker driver: No Do you feel safe at home: Yes Do you feel safe in your relationship?: Yes Victim of physical abuse: No Victim of emotional abuse: No Victim of sexual abuse: No Exam Narrative Exam Narrative: Physical Examination General: alert, awake, cooperative, resting comfortably, no acute distress HEENT: normocephalic, atraumatic; PERRL, EOM intact, conjunctiva normal; no nasal discharge; moist mucous membranes, oral and pharyngeal mucosa normal, tolerating secretions Neck: supple, trachea midline; full ROM Chest: normal to inspection Respiratory: normal respiratory effort, speaking in full sentences, clear to auscultation, no wheezing, rales or rhonchi Cardiac: regular rate, regular rhythm, S1S2 intact, no murmurs rubs or gallops GI: abdomen soft, non-tender, non-distended; no palpable mass or hepatosplenomegaly Skin: no lesions, rashes or trauma appreciated Neuro: AAOx3, normal speech, moving all extremities Psych: Appropriate mood and affect Course Vital Signs Vital signs: Vital Signs Pulse 81 08/13/22 23:12 Respiratory Rate 16 08/13/22 23:12 Blood Pressure 139/73 08/13/22 23:12 Pulse Oximetry 98 08/13/22 23:12 Pulse 81 08/13/22 23:12 Respiratory Rate 16 08/13/22 23:12 Respiratory Effort Normal 08/13/22 23:12 Blood Pressure 139/73 08/13/22 23:12 Blood Pressure Position Sitting 08/13/22 23:12 Pulse Oximetry 98 08/13/22 23:12 Pain Level 19 08/13/22 23:12
--- NOTE | 2022-08-13 23:30 | DI.CT_ITS ---
Exam(s) CT ABDOMEN PELVIS WO EXAM: CT ABDOMEN PELVIS WO CLINICAL HISTORY: diarrhea now constipation, hx of SBO. TECHNIQUE: Imaging Protocol: Axial computed tomography images with coronal and sagittal reformatted images were created and reviewed. Oral: no COMPARISON: CT CT ABDOMEN PELVIS WO from 07/29/2022 CR,XR XR ABDOMEN FLAT UPRIGHT from 07/31/2022 FINDINGS: ABDOMEN: Lung Bases: Normal where visualized. Liver: Normal density. No measurable mass. Gallbladder and biliary tract: No radiodense calculus or dilation. Pancreas: Normal density, no abnormal calcifications or inflammatory process. Spleen: Normal. Kidneys: Normal size, contour and axis. No radiodense stones or obstructive uropathy. No masses seen. Adrenal glands: No masses seen. Lymph nodes: Within normal limits. Abdominal Aorta: Abdominal portion non-dilated. PELVIS: Bladder: Symmetric distention, no gross wall thickening. Bowel: Large amount of food and fluid within stomach. Diffuse dilatation of small and large bowel wi th which is fluid filled. Tendon also appears dilated or there is no definite wall thickening. No t ransition point identified. Findings consistent with diffuse ileus. No pneumatosis. Peritoneal cavity: Small amount of fluid around the liver. Reproductive organs: Status post hysterectomy. Bones: Stable appearance of severe no scoliosis and degenerative changes. Stable mild L5 compression fracture. Stable mild compression superior S1. Stable sclerotic lesion left ilium. IMPRESSION: Diffuse dilatation of small and large bowel compatible with ileus. Trace ascites. RADIATION DOSE DELIVERED: 588.1mGy.cm Total DLP DATA REPOSITORY: All CT scans at this facility are submitted to the National Radiology Data Registry (NRDR) Dose Index Registry (DIR) with the [employer] (ACR). RADIATION OPTIMIZATION: All CT scans at this facility use at least one of these dose optimization te chniques: automated exposure control; mA and/or kV adjustment per patient size (includes targeted exa ms where dose is matched to clinical indication); or iterative reconstruction.
[2022-08-13 23:50] LABS: Abs Immature Grans 0.03 10^3/uL (0.0-0.06); Absolute Basophil Count 0.04 10^3/uL (0.0-0.2); Absolute Eosinophil Count 0.05 10^3/uL (0.0-0.7); Absolute Lymphocyte Count 0.67 10^3/uL (1.2-3.4); Absolute Monocyte Count 0.26 10^3/uL (0.1-0.8); Absolute Neutrophil Count 6.02 10^3/uL (1.2-6.7); Basophils % 0.6; Eosinophils % 0.7; HCT 39.8 % (36.0-46.0); HGB 13.9 g/dL (11.2-15.7); Immature Grans % 0.4; Lymphocytes % 9.5; MCH 33.6 pg (27.0-33.0); MCHC 34.9 % (32.0-36.0); MCV 96 fL (80-95); MPV 8.8 fL (8.0-11.0); Monocytes % 3.7; Neutrophils % 85.1; Platelet Count 245 10^3/uL (130-400); RBC 4.14 10^6/uL (3.93-5.22); RDW 12.6 % (11.7-14.6); RDW-SD 44.3 fL; WBC 7.07 10^3/uL (4.4-10.8)
[2022-08-13] MEDS: Normal Saline 500 ML 1000 ML IV (23:50)
[2022-08-13] MEDS: Ondansetron 4 MG/2 ML VIAL IVP (23:57)
[2022-08-14 00:06] LABS: ALT 97 U/L (14-59); AST 52 U/L (15-37); Albumin 4.2 g/dL (3.4-5.0); Alkaline Phosphatase 115 U/L (46-116); Anion Gap 7.8 mmol/L (3-11); BUN 13 mg/dL (7-18); Bilirubin, Total 0.6 mg/dL (0.2-1.0); CO2 29.2 mmol/L (21.0-32.0); CREATININE 0.9 mg/dL (0.55-1.02); Calcium 9.5 mg/dL (8.5-10.1); Chloride 92 mmol/L (98-107); Estimated GFR 67.92 (mL/min/1.73m2); Glucose 141 mg/dL (74-106); Potassium 4.2 mmol/L (3.5-5.1); Sodium 129 mmol/L (136-145); Total Protein 9.1 g/dL (6.4-8.2)
--- NOTE | 2022-08-14 01:39 | DI.VRAD_ITS ---
PROCEDURE INFORMATION: Exam: CT Abdomen And Pelvis Without Contrast Exam date and time: 08/14/2022 12:13 AM Age: 71 years old Clinical indication: Other: Diarrhea now constipation, HX of sbo TECHNIQUE: Imaging protocol: Computed tomography of the abdomen and pelvis without contrast. Radiation optimization: All CT scans at this facility use at least one of these dose optimization techniques: automated exposure control; mA and/or kV adjustment per patient size (includes targeted exams where dose is matched to clinical indication); or iterative reconstruction. COMPARISON: CT ABDOMEN PELVIS WO 07/29/2022 12:40 AM FINDINGS: Liver: Normal. No mass. Gallbladder and bile ducts: Status post cholecystectomy. Pancreas: Normal. No ductal dilation. Spleen: Normal. No splenomegaly. Adrenal glands: Normal. No mass. Kidneys and ureters: Normal. No hydronephrosis. Stomach and bowel: Numerous dilated small bowel loops suspicious for ileus with obstruction not excluded. Appendix: Tubular structure near base of cecum is suspicious for mildly dilated appendix with evaluation limited due to lack of oral contrast, recommend clinical exclusion of acute appendicitis.. Intraperitoneal space: Small ascites. Vasculature: Unremarkable. No abdominal aortic aneurysm. Lymph nodes: Unremarkable. No enlarged lymph nodes. Urinary bladder: Unremarkable as visualized. Reproductive: Status post hysterectomy. Bones/joints: Unremarkable. No acute fracture. Soft tissues: Unremarkable. IMPRESSION: 1. Tubular structure near base of cecum is suspicious for mildly dilated appendix with evaluation limited due to lack of oral contrast, recommend clinical exclusion of acute appendicitis.. 2. Small ascites. 3. Numerous dilated small bowel loops suspicious for ileus with obstruction not excluded. Dictated and Authenticated by: Eros Lowe MD. Ordering:JUNIOR Mckeon MD
[2022-08-14 02:00] VITALS: BP 124/64; PULSE 84; RESP 16; TEMP 37; O2SAT 100
== END 2022-08-14 02:18 | disposition home or self-care (01) ==
PROVIDERS: Emergency Provider Emergency Medicine; PCP Family Medicine
DX: R10.9 Unspecified abdominal pain (principal); R11.10 Vomiting, unspecified; R19.7 Diarrhea, unspecified
CPT/HCPCS: 36415; 80053; 96361; 96374; 99284; 74176; 85025; J2405

== ENCOUNTER 2022-08-23 02:03 | Outpatient (CLI) | payer MEDICARE, BC, SELFPAY ==
[2022-08-23 13:17] LABS: Abs Immature Grans 0.01 10^3/uL (0.0-0.06); Absolute Basophil Count 0.01 10^3/uL (0.0-0.2); Absolute Lymphocyte Count 1.44 10^3/uL (1.2-3.4); Absolute Monocyte Count 0.25 10^3/uL (0.1-0.8); Absolute Neutrophil Count 1.76 10^3/uL (1.2-6.7); Basophils % 0.3; Eosinophils % 5.4; HCT 33.6 % (36.0-46.0); HGB 11.6 g/dL (11.2-15.7); Immature Grans % 0.3; Lymphocytes % 39.2; MCH 33.4 pg (27.0-33.0); MCHC 34.5 % (32.0-36.0); MCV 97 fL (80-95); MPV 8.5 fL (8.0-11.0); Monocytes % 6.8; Platelet Count 183 10^3/uL (130-400); RBC 3.47 10^6/uL (3.93-5.22); RDW-SD 46.1 fL; WBC 3.67 10^3/uL (4.4-10.8)
[2022-08-23 14:02] LABS: ALT 23 U/L (14-59); AST 23 U/L (15-37); Albumin 3.5 g/dL (3.4-5.0); Alkaline Phosphatase 78 U/L (46-116); Anion Gap 2.6 mmol/L (3-11); BUN 8 mg/dL (7-18); Bilirubin, Total 0.4 mg/dL (0.2-1.0); CO2 29.4 mmol/L (21.0-32.0); CREATININE 0.8 mg/dL (0.55-1.02); Calcium 8.5 mg/dL (8.5-10.1); Chloride 98 mmol/L (98-107); Estimated GFR 78.24 (mL/min/1.73m2); Glucose 96 mg/dL (74-106); Potassium 4.1 mmol/L (3.5-5.1); Sodium 130 mmol/L (136-145); Total Protein 7.6 g/dL (6.4-8.2)
[2022-08-24 09:50] LABS: IgA 332 mg/dL (85-499); IgG 1429 mg/dL (610-1616); IgM 53 mg/dL (35-242); Kappa Free Light Chain 2.22 mg/dL (0.33-1.94); Lambda Free Light Chain 1.29 mg/dL (0.57-2.63)
[2022-08-24 13:22] LABS: Albumin 55.3 % (55.8-66.1); Albumin g/dL 3.9 g/dL (3.6-5.2)
== END 2022-08-23 02:04 | disposition home or self-care (01) ==
PROVIDERS: PCP Family Medicine; Visit Provider Nurse Practitioner Adult Health
DX: C90.00 Multiple myeloma not having achieved remission (principal)
CPT/HCPCS: 36415; 80053; 82784; 83883; 84165; 85025

== ENCOUNTER 2022-09-20 04:14 | Outpatient (CLI) | payer MEDICARE, BC, SELFPAY ==
[2022-09-20 13:17] LABS: Abs Immature Grans 0.01 10^3/uL (0.0-0.06); Absolute Basophil Count 0.04 10^3/uL (0.0-0.2); Absolute Eosinophil Count 0.12 10^3/uL (0.0-0.7); Absolute Lymphocyte Count 1.18 10^3/uL (1.2-3.4); Absolute Monocyte Count 0.28 10^3/uL (0.1-0.8); Absolute Neutrophil Count 3.15 10^3/uL (1.2-6.7); Basophils % 0.8; Eosinophils % 2.5; HCT 30.1 % (36.0-46.0); HGB 10.4 g/dL (11.2-15.7); Immature Grans % 0.2; Lymphocytes % 24.7; MCH 33.7 pg (27.0-33.0); MCHC 34.6 % (32.0-36.0); MCV 97 fL (80-95); MPV 8.3 fL (8.0-11.0); Monocytes % 5.9; Neutrophils % 65.9; Platelet Count 277 10^3/uL (130-400); RBC 3.09 10^6/uL (3.93-5.22); RDW 12.8 % (11.7-14.6); RDW-SD 45.7 fL; WBC 4.78 10^3/uL (4.4-10.8)
[2022-09-20 14:04] LABS: ALT 43 U/L (14-59); AST 25 U/L (15-37); Albumin 2.9 g/dL (3.4-5.0); Alkaline Phosphatase 160 U/L (46-116); BUN 6 mg/dL (7-18); Bilirubin, Total 0.2 mg/dL (0.2-1.0); CREATININE 0.7 mg/dL (0.55-1.02); Calcium 9.2 mg/dL (8.5-10.1); Chloride 99 mmol/L (98-107); Estimated GFR 91.26 (mL/min/1.73m2); Glucose 104 mg/dL (74-106); Potassium 3.5 mmol/L (3.5-5.1); Sodium 135 mmol/L (136-145); Total Protein 8.3 g/dL (6.4-8.2)
[2022-09-21 12:03] LABS: Kappa Free Light Chain 3.57 mg/dL (0.33-1.94); Lambda Free Light Chain 2.11 mg/dL (0.57-2.63)
[2022-09-21 13:25] LABS: Albumin 45.4 % (55.8-66.1); Albumin g/dL 3.4 g/dL (3.6-5.2); Comment (See Note); Total Protein 7.4 g/dL (6.3-8.2)
[2022-09-21 14:33] LABS: IgA 393 mg/dL (85-499); IgG 1501 mg/dL (610-1616); IgM 96 mg/dL (35-242)
[2022-09-21 15:26] LABS: Immunotyping, Serum (See Note)
== END 2022-09-20 04:15 | disposition home or self-care (01) ==
LOC: LBO 04:14
PROVIDERS: PCP Family Medicine; Visit Provider Internal Medicine Hematology & Oncology
DX: C90.00 Multiple myeloma not having achieved remission (principal)
CPT/HCPCS: 36415; 80053; 82784; 99213; 83883; 84165; 85025; 86320

== ENCOUNTER 2022-10-18 13:28 | Outpatient (CLI) | payer MEDICARE, BC, SELFPAY ==
[2022-10-18 13:39] LABS: Absolute Basophil Count 0.04 10^3/uL (0.0-0.2); Absolute Eosinophil Count 0.46 10^3/uL (0.0-0.7); Absolute Lymphocyte Count 1.49 10^3/uL (1.2-3.4); Absolute Monocyte Count 0.39 10^3/uL (0.1-0.8); Absolute Neutrophil Count 1.58 10^3/uL (1.2-6.7); Eosinophils % 11.6; HGB 11.9 g/dL (11.2-15.7); Lymphocytes % 37.6; MCV 97 fL (80-95); MPV 8.1 fL (8.0-11.0); Monocytes % 9.8; Platelet Count 172 10^3/uL (130-400); RDW 13.1 % (11.7-14.6); RDW-SD 46.4 fL; WBC 3.96 10^3/uL (4.4-10.8)
[2022-10-18 14:03] LABS: ALT 25 U/L (14-59); AST 28 U/L (15-37); Albumin 3.6 g/dL (3.4-5.0); Alkaline Phosphatase 81 U/L (46-116); Anion Gap 3.6 mmol/L (3-11); BUN 9 mg/dL (7-18); Bilirubin, Total 0.4 mg/dL (0.2-1.0); CO2 30.4 mmol/L (21.0-32.0); CREATININE 0.8 mg/dL (0.55-1.02); Chloride 100 mmol/L (98-107); Estimated GFR 77.75 (mL/min/1.73m2); Glucose 101 mg/dL (74-106); Potassium 4.1 mmol/L (3.5-5.1); Sodium 134 mmol/L (136-145); Total Protein 7.9 g/dL (6.4-8.2)
[2022-10-18 16:10] LABS: Iron 78 ug/dL (50-170); Total Iron Binding Capacity 378 ug/dL (250-450); Transferrin Sat 21 % (15-50)
[2022-10-18 16:40] LABS: Ferritin 40 ng/mL (8-252); TSH 2.56 uIU/mL (0.36-3.74); Vitamin B12 292 pg/mL (193-986)
[2022-10-18 16:42] LABS: Folate > 20.0 ng/mL (8.6-20.0)
[2022-10-19 09:30] LABS: IgA 430 mg/dL (85-499); IgG 1737 mg/dL (610-1616); IgM 76 mg/dL (35-242); Kappa Free Light Chain 3.73 mg/dL (0.33-1.94); Lambda Free Light Chain 1.93 mg/dL (0.57-2.63)
[2022-10-19 14:38] LABS: Albumin 52.4 % (55.8-66.1); Albumin g/dL 4.1 g/dL (3.6-5.2); Alpha 1 g/dL 0.27 g/dL (0.15-0.40); Alpha 2 g/dL 0.62 g/dL (0.50-1.00); Beta g/dL 0.97 g/dL (0.60-1.20); Gamma g/dL 1.86 g/dL (0.60-1.60); Total Protein 7.8 g/dL (6.3-8.2)
[2022-10-20 17:11] LABS: Erythropoietin 22.6 mIU/mL (2.6 - 18.5)
== END 2022-10-18 13:29 | disposition home or self-care (01) ==
LOC: LBO 13:29
PROVIDERS: Internal Medicine Hematology & Oncology; PCP Family Medicine; Visit Provider Nurse Practitioner Adult Health
DX: C90.00 Multiple myeloma not having achieved remission (principal); D64.9 Anemia, unspecified
CPT/HCPCS: 36415; 80053; 82668; 82784; 82607; 82728; 82746; 83540; 83550; 83883; 84165; 84443; 85025

== ENCOUNTER 2022-10-26 09:49 | Day surgery (SDC) | payer MEDICARE, BC, SELFPAY ==
--- NOTE | 2022-10-25 19:54 | HPE_ITS ---
Date of service: 10/26/22 Time of Service: 11:24 Assessment and Plan Assessment and plan (1) GERD (gastroesophageal reflux disease): Status: Chronic Qualifiers: Esophagitis presence: esophagitis presence not specified Qualified Code(s): K21.9 - Gastro-esophageal reflux disease without esophagitis (2) Chronic hepatitis B: Status: Acute (3) Multiple myeloma in remission: Status: Chronic (4) Pain from bone metastases: Status: Acute (5) Therapeutic opioid induced constipation: Status: Chronic (6) Chronic narcotic dependence: Status: Chronic (7) HTN (hypertension): Status: Chronic (8) Hx SBO: Assessment and plan: Informed consent is obtained for the procedural (explained in simple layman's terms that the pt. and/or family could understand) explaining risks vs benefits and alternatives to the procedure and consequences if we do not do the procedure and need/rational for the procedure. Risks include but are not limited to: bleeding, infection, perforation of esophagus, stomach, colon, small intestines, bronchus or trachea, or PTX. This would necessitate emergency surgery to repair the damage w/ possible ostomy; and other associated complications w/ the required surgery. Also complications of anesthesia including aspiration, NV/CVA/. History of Present Illness Narrative: today 10/26: Patient is here today for colonoscopy for CRC screening.??? They completed a bowel prep with just a clear yellow residual effluent.? They not having any chest pain or shortness of breath, currently.? They are not experiencing any fev er or chills.? They deny any productive cough or upper respiratory tract infection signs or symptoms.? They are not having abdominal pain, or nausea and vomiting.? They have not had any changes in medications, past medical history or past surgical history since previously being seen in the office. They have not had any accidents or have been in the ER since the clinic pre-operative evaluation. ??I reviewed the procedure with the patient today, including risks and benefits of the procedure, and what they could expect at home for recovery.? All questions are answered to the patient?s satisfaction today, and they are stable to proceed with the proposed procedure. THey stopped her narcotics and she is buprenorphine. Clinic Consult 09/20 Pt was inpatient in early August for possible SBO.? Pt was in pt for several days w/ an SBO vs fecal impaction from chronic narcotics.? She is working w/ PCP to wean off of medications.? She has also had a FLAVIA Her bowels have been working daily to QOD. We d/w importance of fiber therapy and pt was given information on this. She has had an open jony.? She has had x12 SBO's. ? No issues today w/ obstruction s/s. She is still on revlimid that she takes daily.? She is on daily buprenorphine for chronic pain now instead of just narcotics.? Pt seen at the request of PCP regarding colon cancer screening. Pt has never had a colon cancer screening before.?? They deny any pain or difficulty with bowel movements, or rectal bleeding.? There is no family history of any colon cancer.? Pt has not had any weight loss.? Their appetite is good.? ?They deny heart, lung, or kidney problems. They are not having heartburn or indigestion. They have not had any prior colo-rectal surgery.? She has had a prior FLAVIA for u terine cancer and had XRT.? ? They deny any problems with anesthesia in the past. Anesthesia: general (without airway) Previous surgical intolerances: No Previous surgical complications: No Pulmonary risk factors: Date of surgery: Planned procedure: Yes Sleep apnea risks: No COPD/Asthma/Smoker:no Can climb one flight of stairs (12-13 steps) in less than [address] and without symptoms: Yes The surgery proposed for this patient is: low risk Active cardiac conditions: none Active risk factors: none ASA (acetylsalicylic acid): yes Beta blockers: not used Kidneys: no concerns DM:no mUlt Myleoma and chronic revlimid therapy (daily) chronic narcotic therapy due to chronic pain from MM ?Patient needs to be Natural airway general because of:? Medical conditions/airway control/ ?Pain control? Meds/NKDA/PMHx/PSHx: see [facility] ?ROS: 4 point ROS neg other than the symptoms noted above in the HPI. Review of Systems All systems reviewed & are unremarkable except as noted in HPI and below PFSH All Active Problems Screening for malignant neoplasm of colon performed (Acute) Multiple myeloma in remission (Chronic) on revlimid GERD (gastroesophageal reflux disease) (Chronic) Chronic hepatitis B (Acute 12/29/16) Onychomycosis (Chronic) Radiation vulvitis (Chronic) Pain from bone metastases (Acute) maintained on morphine ER; managed by [facility] [place]. 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 [place] to be due to opioid-induced constipation. Resolves with bowel rest. Malaria Malignant neoplasm of uterus 04/01/11 [facility]; ADENOCARCINOMA; ENDOMETROID TYPE ESTIMATED FIGO GRADE I. 04/2011 Hyst and BSO at [facility] Path= stage A1, Gr 11 Psoriasis [place] auricular syndrome Surgical History H/O breast biopsy Right, 1o'clock, 12cm from nipple, US-guided needle core biopsy: negative for malignancy. fibroadipose tissue with assoc hemorrhage. History of cholecystectomy Hx of cataract surgery Hx of cholecystectomy S/P hysterectomy Family History Mother , AGE 84 No problems noted. Father , AGE 92 No problems noted. Sister , AGE 79 No problems noted. Sister No problems noted. Brother , AGE 68 Stomach cancer Brother No problems noted. Brother No problems noted. Brother No problems noted. Brother No problems noted. Son No problems noted. 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 and animals: No Sexually active: No Do you think of yourself as: straight/heterosexual Current gender identity: female What is your relationship status?: How often do you talk on the phone with friends or family?: twice per week How often do you get together with friends or relatives?: decline to answer How often do you attend sabianism or christian services?: decline to answer Do you belong to any clubs or organized social groups?: no Panel score (0-1 are the most socially isolated patients): 1 What type of physical activity do you participate in: walking and running Duration: 30-45 minutes/day Frequency: 3-4 times per week Christianne/Yarsanism: Amish Special christianne needs: No Seatbelt use: always Drive intox or ride w/intox hazardous materials driver: No Do you feel safe at home: Yes Do you feel safe in your relationship?: Yes Victim of physical abuse: No Victim of emotional abuse: No Victim of sexual abuse: No Meds Allergies and Home Medications Allergies Allergy/AdvReac Type Severity Reaction Status Date / Time iodine Allergy Intermediate Verified 10/26/22 10:15 DUST Allergy Unknown Uncoded 10/26/22 10:15 MOLD AND SMUT Allergy Unknown Uncoded 10/26/22 10:15 Home Medications Medication Instructions Recorded Confirmed Type aspirin 81 mg chewable tablet 81 mg PO DAILY 08/19/14 10/26/22 History (Aspirin Low-Strength) valacyclovir 500 mg tablet 500 mg PO BID #60 tabs 05/25/18 10/26/22 Rx lenalidomide 5 mg capsule 5 mg PO DAILY 02/21/19 10/26/22 History (Revlimid) omeprazole 40 mg capsule,delayed 40 mg PO DAILY PRN #90 tab-caps 02/21/19 10/26/22 History release nystatin 100,000 unit/gram topical 1 applic topical BID #30 grams 01/01/22 10/26/22 Rx cream triamcinolone acetonide 0.1 % 1 applic topical BID #30 grams 01/01/22 10/26/22 Rx topical cream acetaminophen 500 mg tablet 1,000 mg PO Q8H PRN PRN #60 tabs 08/02/22 10/26/22 Rx polyethylene glycol 3350 17 17 g PO HS PRN constipation 08/04/22 10/26/22 History gram/dose oral powder (Miralax) buprenorphine HCl 150 mcg buccal 150 mcg buccal Q12H #60 ea 08/20/22 10/26/22 Rx film gabapentin 300 mg capsule 300 mg PO TID #270 caps 08/20/22 10/26/22 Rx Exam Narrative Exam Narrative: PHYSICAL EXAM GENERAL APPEARANCE: Alert, healthy appearance, oriented, x 3,? in no acute distress HYDRATION: Well hydrated HEAD, EYES, EARS, NECK, THROAT: Head is normocephalic, pupils equal, round, reactive to light and accommodation, ocular movement intact, sclera clear and no jaundice. LUNGS: normal respiration/normal chest excursion. ?Clear to auscultation bilaterally. ?No wheeze. ?HEART: Regular rate and rhythm. no murmurs ABDOMEN: soft and non-tender to palpation.? Normal bowel sounds. Time Spent Time spent with Patient: <40 minutes Time was spent: preparing to see the patient(eg.review tests), obtaining and/or reviewing separately otained hiistory, ordering medications,tests, procedures, referring, communicating with other health rn urgent care, indepentently interpreting results, counseling the patient and care coordination
--- NOTE | 2022-10-25 20:01 | COLE_ITS ---
Date of service: 10/26/22 Time of Service: 12:00 Colonoscopy Report Date of procedure: 10/26/22 Pre-op diagnosis general: CRC screening Post-op diagnosis procedure note: other (-Internal and external hemorrhoids) Surgeon: María Elena Mcelroy Anesthesia Type: General:No Airway Estimated blood loss (mL): 0 Pathology: none sent Complications: None Disposition: same day Prep: Miralax/Dulcolax Retraction Time: 7 Procedure Description: After informed consent was obtained the patient was taken to the procedure room and placed in a left decubitous position. Monitors were applied and a time out was done. The patients name, date of , procedure, allergies to medications and metal in their body was reviewed. The patient was then sedated. Once sedated and comfortable a rectal exam was done. External exam shows moderate ex ternal hemorrhoids. There is no thrombosis. Internal exam revealed a normal sphincter tone and no palpable masses. The scope was then introduced and retrofelexed. Grade 2 in all 3 columns equine intern al hemorrhoids were identified. The scope was then advanced to the cecum without difficulty. The colon is tortuous and floppy. The TI and appendiceal orifice were identified. The prep was BBPS 2 in all segments for a total of 6. The scope was then slowly retracted over 7 minutes back into the rectum. there are no polyps, AVMs, or diverticula visualized today. The mucosa is pink and healthy with a normal vascular pattern. The scope was removed and the patient was woken up and taken back to Same day surgery in stable condition. The patient tolerated the procedure well and there were no immediate complications. Follow up: The patient should follow up in 10 years unless they develop changes in bowel habits or other new gastrointestinal complaints.
--- NOTE | 2022-10-25 20:02 | PDOC.DSDIS_ITS ---
Date of service: 10/26/22 Time of Service: 11:23 Discharge Plan Disposition Patient Disposition: Home Condition: Good Discharge Details Reason For Visit: colon scope Attending Provider: María Elena Mcelroy Primary Care Provider: Reyna Abrams Home Meds and New Rx's Prescriptions: Continued triamcinolone acetonide 0.1 % cream 1 applic TP BID Qty: 30 1RF nystatin 100,000 unit/gram cream 1 applic TP BID Qty: 30 1RF polyethylene glycol 3350 [Miralax] 17 gram/dose powder 17 g PO HS PRN (Reason: constipation) Rx Instructions: take a dose at bedtime if no BM during the day buprenorphine HCl 150 mcg film 150 mcg buccal Q12H Qty: 60 3RF gabapentin 300 mg capsule 300 mg PO TID Qty: 270 3RF Hold Instructions: Changed by Provider lenalidomide [Revlimid] 5 mg capsule 5 mg PO DAILY omeprazole 40 mg capsule,delayed release(DR/EC) 40 mg PO DAILY PRNQty: 90 Patient Comments: 04/09/16 takes prn. [facility] aspirin [Aspirin Low-Strength] 81 MG tablet,chewable 81 mg PO DAILY Patient Comments: 09-21-17 pt reports that she takes this med every other day. hb valacyclovir 500 mg tablet 500 mg PO BID Qty: 60 3RF acetaminophen 500 mg Tablet 1,000 mg PO Q8H PRN PRNQty: 60 0RF Hold Instructions: Changed by Provider Discontinued polyethylene glycol 3350 17 gram/dose powder 238 g PO ONCE Qty: 238 0RF Rx Instructions: take per colonoscopy instructions bisacodyl [Dulcolax (bisacodyl)] 5 mg tablet,delayed release (DR/EC) 5 mg PO ONCE Qty: 8 0RF Rx Instructions: take per colonoscopy instructions Discharge Instructions Instructions: Hemorrhoids (GEN) Additional Instructions: DSU Colonoscopy Post- Op Instructions Instructions for Everyone who is given Anesthesia: For your safety, please do the following for the next twenty-four (24) hours: *Do Not operate a motor vehicle (car, truck, motorcycle, etc.) *Do Not drink alcoholic beverages or use any recreational drugs for the first 24 hours or while taking pain medications. The medications in your body may have a reaction that can be dangerous. *Do Not make any important decisions or sign any important papers. Findings: Internal and external hemorrhoids. Otherwise normal -Consider starting metamucil daily. See handout Follow up: F/u W/ Dr. Abrams as aleena 1. No lifting over 20 pounds or strenuous activity for the first 24 hours after your procedure. After 24 hours there are no restrictions on your activity but y ou may feel fatigued for a few days. 2. After you arrive home you may have a light meal and return to your normal diet as you can tolerate it without feeling sick to your stomach. 3. You may have a bloated, gaseous feeling in your belly (abdomen) after a colonoscopy. Passing gas and belching will help. Walking or lying down on your left side with your knees flexed may relieve the discomfort. Call the office at [phone] (Office) or [phone] (Hospital) right away if you notice any of the following: a.Vomiting of blood or ?coffee ground stools?. b.Rectal bleeding 1Tbsp, blood clots or continuous bleeding. c.Severe belly (abdominal) pain. d.A hard distended belly (abdomen) and an inability to pass gas. 4. Please don?t expect to have a normal BM (bowel movement) for 2-3 days after your procedure. 5. If there are questions regarding the findings of your procedure, please contact your doctor 6. If you are unable to contact your doctor with a problem, contact the hospital at [phone]. 7. Continue all your regular medications unless directed otherwise. I understand the above instructions and have no questions. Signature of Patient or Adult Escort Name of Responsible Adult Escort Signature of Nurse Date/Time Stand Alone Forms: Anesthesia Discharge Inst., Kyler Piedra (DSU) Activity:: see above Diet:: see above Discharge Orders Discharge Orders: Discharge Order (Routine); Ordered 10/26/22 Ordered By: María Elena Mcelroy DS: Diagnosis Discharge Diagnosis (1) GERD (gastroesophageal reflux disease): Status: Chronic (2) Chronic hepatitis B: Status: Acute (3) Multiple myeloma in remission: Status: Chronic (4) Pain from bone metastases: Status: Acute (5) Therapeutic opioid induced constipation: Status: Chronic (6) Chronic narcotic dependence: Status: Chronic (7) HTN (hypertension): Status: Chronic (8) Hx SBO: (9) Screening for malignant neoplasm of colon performed: Status: Acute Asessment and Plan: ? The patient is seen and examined after their colonoscopy.? The patient has been able to pass gas.? They are not having abdominal pain.? They have been able to tolerate liquids and a snack.? They do not have any nausea or vomiting.? They are not having any chest pain or shortness of breath.??? They are not having any rectal bleeding. Their vital signs have been stable-see nursing notes.? ? We discussed findings during their colonoscopy, and any biopsies that were done/polyps that were removed. The patient will be sent a letter with any biopsy results, and when to repeat the colonoscopy.-see discharge instructions.? ? Patient was given explicit instructions to follow-up regarding colonoscopy-refer to discharge instructions.? We reviewed resumption of medications.? Patient verbalized understanding and discharged in stable and satisfactory condition- See nursing notes.?
--- NOTE | 2022-10-26 07:14 | W.ANESPRE ---
General Info Date of Service Date Performed: 10/26/22 Height: 4 ft 11 in Weight: 56.245 kg Body Mass Index (BMI): 25.0 Surgical Procedure: Operation Date: 10/26/22 10:50 Proposed Procedure Side Surgeon stephani Mcelroy, Meds Allergies and Home Medications Allergies Allergy/AdvReac Type Severity Reaction Status Date / Time iodine Allergy Intermediate Verified 10/26/22 10:15 DUST Allergy Unknown Uncoded 10/26/22 10:15 MOLD AND SMUT Allergy Unknown Uncoded 10/26/22 10:15 Home Medication Medication Instructions Recorded aspirin 81 mg chewable tablet 81 mg PO DAILY 08/19/14 (Aspirin Low-Strength) valacyclovir 500 mg tablet 500 mg PO BID #60 tabs 05/25/18 lenalidomide 5 mg capsule 5 mg PO DAILY 02/21/19 (Revlimid) omeprazole 40 mg capsule,delayed 40 mg PO DAILY PRN #90 tab-caps 02/21/19 release nystatin 100,000 unit/gram topical 1 applic topical BID #30 grams 01/01/22 cream triamcinolone acetonide 0.1 % 1 applic topical BID #30 grams 01/01/22 topical cream acetaminophen 500 mg tablet 1,000 mg PO Q8H PRN PRN #60 tabs 08/02/22 polyethylene glycol 3350 17 17 g PO HS PRN constipation 08/04/22 gram/dose oral powder (Miralax) buprenorphine HCl 150 mcg buccal 150 mcg buccal Q12H #60 ea 08/20/22 film gabapentin 300 mg capsule 300 mg PO TID #270 caps 08/20/22 Current Visit Medications: Current Medications Generic Name Dose Route Start Last Admin Trade Name Freq PRN Reason Stop Dose Admin Ringer's Solution 1,000 mls @ 80 mls/hr 10/26/22 06:00 IV 11/24/22 23:59 INFUSION [facility] IV Miscellaneous Supplies 1 each 10/26/22 06:00 Iv Access IV 11/24/22 23:59 DIRECTED [facility] Ondansetron HCl 4 mg 10/26/22 07:51 Ondansetron 4 Mg/2 Ml Vial IVP 11/25/22 07:50 Q4H PRN PRN Nausea / Vomiting Sodium Chloride 0 ml 10/26/22 06:00 Normal Saline Flush 10 Ml Syr IV 11/24/22 23:59 PRN PRN Sodium Chloride 0 ml 10/26/22 06:00 Normal Saline 10 Ml Vial IJ 11/24/22 23:59 DIRECTED PRN Sterile Water 0 ml 10/26/22 06:00 Water,Injection,Sterile 10 Ml Vial IJ 11/24/22 23:59 DIRECTED PRN PFSH Active Problems Active Problems: Problem Status Onset Code Screening for malignant neoplasm of colon performed Z12.11 Multiple myeloma in remission C90.01 GERD (gastroesophageal reflux disease) K21.9 Chronic hepatitis B 12/29/16 B18.1 Onychomycosis B35.1 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 [place] to be due to opioid-induced constipation. Resolves with bowel rest. Malaria Malignant neoplasm of uterus 04/01/11 [facility]; ADENOCARCINOMA; ENDOMETROID TYPE ESTIMATED FIGO GRADE I. 04/2011 Hyst and BSO at [facility] Path= stage A1, Gr 11 Psoriasis Prabhu Barbour auricular syndrome Surgical History Surgical History H/O breast biopsy Right, 1o'clock, 12cm from nipple, US-guided needle core biopsy: negative for malignancy. fibroadipose tissue with assoc hemorrhage. History of cholecystectomy Hx of cataract surgery Hx of cholecystectomy S/P hysterectomy Tobacco Smoking/Tobacco Use Status: Never Passive smoking exposure: Yes Second hand exposure: Yes Alcohol Alcohol Intake: never Substance Use Substance use: Never Substance use type: does not use Vital Signs and Lab Results Vital Signs Most Recent Vital Signs in EMR: Temp Pulse Resp BP Pulse Ox 36.1 C L 66 16 136/74 99 10/26/22 10:12 10/26/22 10:12 10/26/22 10:12 10/26/22 10:12 10/26/22 10:12 Lab Results Blood Type / Crossmatch: No Data to Display Complete Blood Count: White Blood Count 3.96 10^3/uL (4.4-10.8) L 10/18/22 13:34 Red Blood Count 3.50 10^6/uL (3.93-5.22) L 10/18/22 13:34 Hemoglobin 11.9 g/dL (11.2-15.7) 10/18/22 13:34 Hematocrit 34.0 % (36.0-46.0) L 10/18/22 13:34 Platelet Count 172 10^3/uL (130-400) 10/18/22 13:34 Complete Metabolic Panel: Sodium 134 mmol/L (136-145) L 10/18/22 13:34 Potassium 4.1 mmol/L (3.5-5.1) 10/18/22 13:34 Chloride 100 mmol/L (98-107) 10/18/22 13:34 Carbon Dioxide 30.4 mmol/L (21.0-32.0) 10/18/22 13:34 BUN 9 mg/dL (7-18) 10/18/22 13:34 Creatinine 0.8 mg/dL (0.55-1.02) 10/18/22 13:34 Est GFR (CKD-EPI 2020) 77.75 (mL/min/1.73m2) 10/18/22 13:34 Calcium 9.0 mg/dL (8.5-10.1) 10/18/22 13:34 Albumin 3.6 g/dL (3.4-5.0) 10/18/22 13:34 Glucose 101 mg/dL (74-106) 10/18/22 13:34 Liver Function Panel: Alanine Aminotransferase (ALT/SGPT) 25 U/L (14-59) 10/18/22 13:34 Aspartate Amino Transf (AST/SGOT) 28 U/L (15-37) 10/18/22 13:34 Coagulation Panel: No Data to Display Cardiac Panel: No Data to Display Arterial Blood Gas: No Data to Display Venous Blood Gas: No Data to Display Pancreas Panel: No Data to Display Thyroid Panel: Thyroid Stimulating Hormone (TSH) 2.56 uIU/mL (0.36-3.74) 10/18/22 13:34 Infectious Disease: No Data to Display Blood Cultures: No Data to Display Toxicology Panel: No Data to Display Imaging and Studies Imaging and Studies Study information below may be from another EMR and interpreted by another provider. Please see original notes in EMR for more complete details. EKG Summary: EKG PATIENT NAME: Ned Haskins #: [id number] ORDERING PROVIDER: David King M.D. PRIMARY CARE PROVIDER:SARAH BETH CORTES MD DATE/TIME OF SERVICE: 09/23/21 1211 : 1950PERFORMING LOCATION: [place] APPROVED REPORT Exam: Resting ECG Reason for Exam: abd pain Patient Location: E HR:65 bpm ECG Measurements Heart Rate 65 AXIS AL 150 P 34 QRSd 105 QRS 7 QT 438 T18 QTc 455 Conclusion Sinus rhythm...normal P axis, V-rate 60- 99 Probable left ventricular hypertrophy...multiple LVH criteria <Electronically signed by DAVID KING MD in [place]> E-Sign Date: 09/23/21 E-Sign Time: 1213 ADDENDUM APPROVED REPORT Exam: Resting ECG Reason for Exam: abd pain Patient Location: E HR:65 bpm ECG Measurements Heart Rate 65 AXIS AL 150 P 34 QRSd 105 QRS 7 QT 438 T18 QTc 455 Conclusion Sinus rhythm...normal P axis, V-rate 60- 99 Probable left ventricular hypertrophy...multiple LVH criteria I have reviewed and I agree with the emergency room physician's ECG interpretation. Electronically signed by: <Electronically signed by Marilu Marks M.D. in [place]> 09/24/21 0835 Cosigned by: Anesthesia Assessment and Plan Anesthesia History Personal History: No History of Anesthesia Complications Family History: No Family History of Anesthesia Complications Exercise Tolerance Exercise Tolerance: Metabolic Equivalents>4 Pertinent Negatives Pertinent Negatives: No Symptoms of GERD (Some symptoms during prep, now better. ), No Major Cardiovascular Symptoms or Complaints, No Major Pulmonary Symptoms or Complaints and No History of CVA/TIA Cardiac & Pulmonary Exam Cardiac Exam: Normal S1/S2 Heart Sounds Pulmonary Exam: Clear Bilateral Breath Sounds Implantable Cardiac Device Does patient have a Pacemaker or an ICD?: No Airway Exam Known Difficult Airway: No Mallampati Class: 2 Mouth Opening: Normal (> 3cm) Thyromental Distance: Greater than 3 cm Neck Range of Motion: Full ROM Neck Circumference: Normal Teeth Condition: Removable Dentures/Plates Upper (Left at home) ASA Classification ASA Score: ASA 2 Emergency Case?: No NPO Status NPO Status: NPO Clears >2 hours, Solids >8 hours Anesthesia Plan Resuscitation Status: Full Code Anesthesia Technique: General Anesthesia Airway Planned: Natural Airway Monitors Used: Standard Monitors
[2022-10-26 07:17] VITALS: BMI 25.0
[2022-10-26 10:12] VITALS: BP 136/74; PULSE 66; RESP 16; TEMP 36.1; O2SAT 99
[2022-10-26] MEDS: Lactated Ringers 1,000 ML 80 ML IV (10:40)
[2022-10-26 11:58] VITALS: BP 112/59; PULSE 59; RESP 16; TEMP 36; O2SAT 100
--- NOTE | 2022-10-26 12:07 | W.ANESPOSTOP ---
Postoperative Evaluation Date, Time and Location Date Performed: 10/26/22 Time Performed: 12:07 Patient Location: Day Surgery Unit Vital Signs Most Recent Imported Vital Signs: Most Recent Vital Signs Temp Pulse Resp BP Pulse Ox 36 C L 59 L 16 112/59 L 100 10/26/22 11:58 10/26/22 11:58 10/26/22 11:58 10/26/22 11:58 10/26/22 11:58 Assessment Mental Status: Arousable with meaningful communication Airway and Respiratory Function: Patent airway with normal (patient baseline) respiratory exam Cardiovascular Function: Hemodynamically Stable Hydration Status: Adequately Hydrated Nausea & Vomiting: No Nausea or Vomiting Pain: Pt. Denies Any Pain Peripheral Nerve Block: Patient did not receive a nerve block
[2022-10-26 12:26] VITALS: BP 130/66; PULSE 57; RESP 16; TEMP 36; O2SAT 100
== END 2022-10-26 13:00 | disposition home or self-care (01) ==
PROVIDERS: PCP Family Medicine; Visit Provider Surgery
PROC: 0DJD8ZZ Inspection of Lower Intestinal Tract, Via Natural or Artificial Opening Endoscopic (ICD-10-PCS; CPT 45378; principal; 2022-10-26 10:45)
DX: Z12.11 Encounter for screening for malignant neoplasm of colon (principal); K64.4 Residual hemorrhoidal skin tags; K64.8 Other hemorrhoids
CPT/HCPCS: G0121

== ENCOUNTER 2022-11-11 12:06 | Inpatient (IN) | payer MEDICARE, BC, SELFPAY ==
[2022-11-11] VITALS (36 sets, daily range): BP systolic 123–152; BP diastolic 61–79; PULSE 63–78; RESP 11–24; TEMP 36.7–37.1; O2SAT 96–100
--- NOTE | 2022-11-11 12:38 | W.ED.GENAD ---
Discharge Plan Disposition Patient Disposition: Admit to [facility] Condition: Stable Discharge Details Clinical Impression: Ileus Primary Care Provider: Reyna Abrams ED Provider: Anuradha Jennings Home Meds and New Rx's Prescriptions: No Action triamcinolone acetonide 0.1 % cream 1 applic TP BID Qty: 30 1RF Patient Comments: pt not sure if taking nystatin 100,000 unit/gram cream 1 applic TP BID Qty: 30 1RF Patient Comments: not taking per pt polyethylene glycol 3350 [Miralax] 17 gram/dose powder 17 g PO HS PRN (Reason: constipation) Rx Instructions: take a dose at bedtime if no BM during the day buprenorphine HCl 150 mcg film 150 mcg buccal Q12H Qty: 60 3RF Patient Comments: pt not sure if still taking gabapentin 300 mg capsule 300 mg PO TID Qty: 270 3RF Hold Instructions: Changed by Provider lenalidomide [Revlimid] 5 mg capsule 5 mg PO DAILY omeprazole 40 mg capsule,delayed release(DR/EC) 40 mg PO DAILY PRNQty: 90 Patient Comments: 04/09/16 takes prn. eugene aspirin [Aspirin Low-Strength] 81 MG tablet,chewable 81 mg PO DAILY Patient Comments: 09-21-17 pt reports that she takes this med every other day. hb valacyclovir 500 mg tablet 500 mg PO BID Qty: 60 3RF acetaminophen 500 mg Tablet 1,000 mg PO Q8H PRN PRNQty: 60 0RF Hold Instructions: Changed by Provider Medical Decision Making 72-year-old female with a past medical history of multiple myeloma in remission, GERD, chronic hepatitis B, hypertension presents to the ER with chief complaint of generalized abdominal pain, periumbilical abdominal pain subjective fever chills body aches and nausea and vomiting since last night. Patient denies any diarrhea. She recently was admitted and discharged from the hospital in August for similar episode. She had a colonoscopy couple weeks ago which was normal. She reports dizziness. 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 Patient is on buprenorphine which was filled on the November 04 per [employer]. Patient was given 500 cc normal saline, [address] abdomen pelvis ordered without contrast due to allergy to iodine patient reports that she gets hives. Abdominal workup ordered. CT exam shows mild to moderately dilated loops of small bowel throughout the entire length suggesting an ileus. She does have some stable distended fluid-filled appendix without surrounding inflammation abscess or air. No other acute changes. 1439: Spoke with Dr. Mcelroy with general surgery who is familiar with the patient. I did discuss CT results with her she will review the images and call me back. 1452: Spoke again with Dr. Mcelroy who agrees to accept patient for admission and does recommend admission at this time she also recommends NG tube and small amount of Ativan prior to NG tube placement. Will discuss plan of care with patient. Dr. Mcelroy here in department at bedside for patient eval and speak with patient. ED admission holding orders placed. Discussed plan of care with patient who verbalizes understanding she is in agreement with the plan. This text was generated using [employer] system, please disregard any oddities of phrase or misspellings. Medical Records Medical records reviewed: Yes I reviewed the patient's medical records. Lab Data Lab results reviewed: Yes I reviewed the patient's lab results. Labs: Laboratory Tests Range/Units 11/11/22 11/11/22 12:32 12:32 WBC (4.4-10.8) 10^3/uL 4.15 L RBC (3.93-5.22) 10^6/uL 4.37 Hgb (11.2-15.7) g/dL 14.4 Hct (36.0-46.0) % 41.3 MCV (80-95) fL 95 MCH (27.0-33.0) pg 33.0 MCHC (32.0-36.0) % 34.9 RDW (11.7-14.6) % 12.8 Plt Count (130-400) 10^3/uL 223 MPV (8.0-11.0) fL 8.5 Immature Gran % 0.2 Neutrophils % 80.3 Lymphocytes % 12.3 Monocytes % 6.3 Eosinophils % 0.2 Basophils % 0.7 Absolute Neutrophils (1.2-6.7) 10^3/uL 3.33 Absolute Lymphocytes (1.2-3.4) 10^3/uL 0.51 L Absolute Monocytes (0.1-0.8) 10^3/uL 0.26 Absolute Eosinophils (0.0-0.7) 10^3/uL 0.01 Absolute Basophils (0.0-0.2) 10^3/uL 0.03 Sodium (136-145) mmol/L 134 L Potassium (3.5-5.1) mmol/L 4.1 Chloride (98-107) mmol/L 96 L Carbon Dioxide (21.0-32.0) mmol/L 27.7 Anion Gap (3-11) mmol/L 10.3 BUN (7-18) mg/dL 12 Creatinine (0.55-1.02) mg/dL 0.9 Est GFR (CKD-EPI 2020) (mL/min/1.73m2) 67.50 Glucose (74-106) mg/dL 135 H Calcium (8.5-10.1) mg/dL 9.8 Magnesium (1.8-2.4) mg/dL 2.0 Total Bilirubin (0.2-1.0) mg/dL 0.6 AST (15-37) U/L 36 ALT (14-59) U/L 34 Alkaline Phosphatase (46-116) U/L 85 Total Protein (6.4-8.2) g/dL 9.2 H Albumin (3.4-5.0) g/dL 4.1 Lipase (16-77) U/L 35 HPI General Mode of arrival: wheelchair. Date/Time Provider Initiated Documentation: 11/11/22 12:06. Limitations to Documentation: no limitations. Information obtained by: patient, RN notes reviewed and old records reviewed. HPI Narrative: 72-year-old female with a past medical history of multiple myeloma in remission, GERD, chronic hepatitis B, hypertension presents to the ER with chief complaint of generalized abdominal pain, periumbilical abdominal pain subjective fever chills body aches and nausea and vomiting since last night. Patient denies any diarrhea. She recently was admitted and discharged from the hospital in August for similar episode. She had a colonoscopy couple weeks ago which was normal. She reports dizziness. 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 Related Data Home Medications Medication Instructions Recorded Confirmed aspirin 81 mg chewable tablet 81 mg PO DAILY 08/19/14 11/11/22 (Aspirin Low-Strength) valacyclovir 500 mg tablet 500 mg PO BID #60 tabs 02/21/19 08/10/23 lenalidomide 5 mg capsule 5 mg PO DAILY 02/21/19 11/11/22 (Revlimid) omeprazole 40 mg capsule,delayed 40 mg PO DAILY PRN #90 tab-caps 02/21/19 11/11/22 release nystatin 100,000 unit/gram topical 1 applic topical BID #30 grams 01/01/22 10/26/22 cream triamcinolone acetonide 0.1 % 1 applic topical BID #30 grams 01/01/22 10/26/22 topical cream acetaminophen 500 mg tablet 1,000 mg PO Q8H PRN PRN #60 tabs 08/02/22 11/11/22 polyethylene glycol 3350 17 17 g PO HS PRN constipation 08/04/22 11/11/22 gram/dose oral powder (Miralax) buprenorphine HCl 150 mcg buccal 150 mcg buccal Q12H #60 ea 08/20/22 11/11/22 film gabapentin 300 mg capsule 300 mg PO TID #270 caps 08/20/22 11/11/22 Previous Rx's Medication Instructions Recorded valacyclovir 500 mg tablet 500 mg PO BID #60 tabs 05/25/18 nystatin 100,000 unit/gram topical 1 applic topical BID #30 grams 01/01/22 cream triamcinolone acetonide 0.1 % 1 applic topical BID #30 grams 01/01/22 topical cream acetaminophen 500 mg tablet 1,000 mg PO Q8H PRN PRN #60 tabs 08/02/22 buprenorphine HCl 150 mcg buccal 150 mcg buccal Q12H #60 ea 08/20/22 film gabapentin 300 mg capsule 300 mg PO TID #270 caps 08/20/22 Allergies Allergy/AdvReac Type Severity Reaction Status Date / Time iodine Allergy Intermediate Verified 11/11/22 12:18 DUST Allergy Unknown Uncoded 11/11/22 12:18 MOLD AND SMUT Allergy Unknown Uncoded 11/11/22 12:18 General Stated Complaint: Abd Prob RICKI: 3 Review of Systems All systems reviewed & are unremarkable except as noted in HPI and below ENT Ears, Nose, Mouth, and Throat: Reports dizziness Cardiovascular Cardiovascular: Denies chest pain, Reports lightheadedness and Denies dyspnea Respiratory Respiratory: Denies cough and Denies dyspnea Gastrointestinal Gastrointestinal: Reports abdominal pain, Reports nausea and Reports vomiting Genitourinary Genitourinary: Reports urinary hesitancy Musculoskeletal Musculoskeletal: Reports numbness (At baseline feet, from Chemo Patient states) Neurologic Neurologic: Denies abnormal speech, Denies confusion, Reports dizziness, Denies localized weakness and Reports numbness (At baseline feet, from Chemo Patient states) Psychiatric Psychiatric: Denies confusion PFSH All Active Problems (Updated 11/11/22 @ 15:09 by Anuradha Jennings NP) Ileus (Acute) Screening for malignant neoplasm of colon performed (Acute) Multiple myeloma in remission (Chronic) on revlimid GERD (gastroesophageal reflux disease) (Chronic) Chronic hepatitis B (Acute 12/29/16) Onychomycosis (Chronic) Radiation vulvitis (Chronic) Pain from bone metastases (Acute) maintained on morphine ER; managed by [facility] heme onc. 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 [place] to be due to opioid-induced constipation. Resolves with bowel rest. Malaria Malignant neoplasm of uterus 04/01/11 [facility]; ADENOCARCINOMA; ENDOMETROID TYPE ESTIMATED FIGO GRADE I. 04/2011 Hyst and BSO at [facility] Path= stage A1, Gr 11 Psoriasis Prabhu Barbour auricular syndrome Surgical History H/O breast biopsy Right, 1o'clock, 12cm from nipple, US-guided needle core biopsy: negative for malignancy. fibroadipose tissue with assoc hemorrhage. History of cholecystectomy History of colonoscopy (~10/2022) Hx of cataract surgery Hx of cholecystectomy S/P hysterectomy Family History Mother , AGE 84 No problems noted. Father , AGE 92 No problems noted. Sister , AGE 79 No problems noted. Sister No problems noted. Brother , AGE 68 Stomach cancer Brother No problems noted. Brother No problems noted. Brother No problems noted. Brother No problems noted. Son No problems noted. 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 Pets and animals: No Sexually active: No Do you think of yourself as: straight/heterosexual Current gender identity: female What is your relationship status?: How often do you talk on the phone with friends or family?: twice per week How often do you get together with friends or relatives?: decline to answer How often do you attend temple or anabaptism services?: decline to answer Do you belong to any clubs or organized social groups?: no Panel score (0-1 are the most socially isolated patients): 1 What type of physical activity do you participate in: walking and running Duration: 30-45 minutes/day Frequency: 3-4 times per week Christianne/Congregation: [employer] Special christianne needs: No Seatbelt use: always Drive intox or ride 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 Appears stated age. Normal body habitus. Head: Normocephalic, no trauma. Eyes: Pupils PERRL, Red reflex noted, EOM's intact. Eyelids symmetrical without lesions, discharge, or swelling. ENT: Bilateral TM's WNL, External ear normal to inspection, no mastoid TTP, swelling, or erythema, Nasal turbinates WNL, no nasal discharge. Posterior pharynx WNL, no exudate. Chest: RRR, Normal S1, S2, distal pulses intact. Resp: Lungs clear to auscultation bilaterally, no wheezes, rales, or rhonchi. Abdomen: Soft, non-distended, tenderness to left lower quadrant and mid lower quadrant, no masses. Musculoskeletal: Unable to assess gait, she does have some swelling to her right lower leg which is baseline for her. She does have some numbness to her lower extremities which she reports is from the chemo and at her baseline. /5 strength to all four extremities. Skin: No suspicious rashes or lesions. Capillary refill less than 2 sec. Neurologic: Cranial nerves II-XII intact. Alert and oriented x 3. Motor: No deficits noted. Sensory: Decreased in her lower extremities from her feet up to her mid calf she reports this is her baseline. Hematologic/Lymphatic: No ecchymosis, no lymphadenopathy. Course Vital Signs Vital signs: Vital Signs Temperature 36.7 C 11/11/22 12:16 Pulse 73 11/11/22 12:16 Respiratory Rate 18 11/11/22 12:16 Blood Pressure 132/68 11/11/22 12:16 Pulse Oximetry 99 11/11/22 12:16 Temperature 36.7 C 11/11/22 12:16 Temperature Source Skin 11/11/22 12:16 Pulse 73 11/11/22 12:16 Respiratory Rate 18 11/11/22 12:16 Respiratory Effort Normal 11/11/22 12:34 Blood Pressure 132/68 11/11/22 12:16 Blood Pressure Position Sitting 11/11/22 12:16 Pulse Oximetry 99 11/11/22 12:16 Oxygen Delivery Method Room Air 11/11/22 12:16 Oxygen Flow Rate 0 11/11/22 12:16 Pain Level 10 11/11/22 12:16
[2022-11-11 12:44] LABS: HCT 41.3 % (36.0-46.0); HGB 14.4 g/dL (11.2-15.7); RBC 4.37 10^6/uL (3.93-5.22); WBC 4.15 10^3/uL (4.4-10.8)
[2022-11-11 12:45] LABS: Absolute Basophil Count 0.03 10^3/uL (0.0-0.2); Absolute Eosinophil Count 0.01 10^3/uL (0.0-0.7); Absolute Lymphocyte Count 0.51 10^3/uL (1.2-3.4); Absolute Monocyte Count 0.26 10^3/uL (0.1-0.8); Absolute Neutrophil Count 3.33 10^3/uL (1.2-6.7); Basophils % 0.7; Eosinophils % 0.2; Immature Grans % 0.2; Lymphocytes % 12.3; MCHC 34.9 % (32.0-36.0); MCV 95 fL (80-95); MPV 8.5 fL (8.0-11.0); Monocytes % 6.3; Neutrophils % 80.3; Platelet Count 223 10^3/uL (130-400); RDW 12.8 % (11.7-14.6); RDW-SD 44.3 fL
--- NOTE | 2022-11-11 12:45 | DI.CT_ITS ---
Exam(s) CT ABDOMEN PELVIS WO EXAM: CT ABDOMEN PELVIS WO CLINICAL HISTORY: Abd PAin, N/V, R/O SBO. TECHNIQUE: Imaging Protocol: Axial computed tomography images with coronal and sagittal reformatted images were created and reviewed. COMPARISON: CT CT ABDOMEN PELVIS WO from 07/29/[address] ABDOMEN PELVIS WO from 08/14/2022 FINDINGS: ABDOMEN: Lung Bases: Normal where visualized. Liver: Normal density. No measurable mass. Gallbladder and biliary tract: Status post cholecystectomy. No significant biliary ductal dilatation . Pancreas: Normal density, no abnormal calcifications or inflammatory process. Spleen: Normal. Kidneys: Normal size, contour and axis.No radiodense stones or obstructive uropathy. No masses seen. Adrenal glands: No mass is seen. Lymph nodes: Within normal limits. Abdominal Aorta: Abdominal portion non-dilated. Atherosclerosis is present. PELVIS: Bladder:Symmetric distention, no gross wall thickening. Bowel: There are mild to moderately dilated loops of small bladder all with air-fluid levels. There is no transition. The entire small bowel appears dilated. The colon is within normal limits in size or is a moderate amount of stool throughout the colon. The appendix is distended measuring 9 mm in diameter. It is fluid-filled. No appendicoliths is seen. No Radhika appendiceal inflammatory changes are present. It appears unchanged compared to 08/14/2022. Peritoneal cavity: No ascites, collection or mesenteric inflammatory response. No free air. Reproductive organs: Status post hysterectomy. Bones: Within normal limits. There has been no change in appearance of the mixed lytic and sclerotic lesion in the left iliac bone. There is a left convex curvature of the thoracolumbar spine. Soft Tissues: Within normal limits. IMPRESSION: 1. Mild to moderately dilated loops of small bowel through its entire length suggesting an ileus. Ob struction cannot be entirely excluded. 2. Stable distended fluid-filled appendix without periappendiceal inflammation. No appendicoliths, a bscess or free air. Please correlate for clinical indications for acute appendicitis. 3. Findings were discussed with Anuradha Jennings at 2:24 p.m. on 11/11/2022. RADIATION DOSE DELIVERED: 687.22mGy.cm Total DLP DATA REPOSITORY: All CT scans at this facility are submitted to the National Radiology Data Registry (NRDR) Dose Index Registry (DIR) with the [employer] (ACR). RADIATION OPTIMIZATION: All CT scans at this facility use at least one of these dose optimization te chniques: automated exposure control; mA and/or kV adjustment per patient size (includes targeted exa ms where dose is matched to clinical indication); or iterative reconstruction.
[2022-11-11] MEDS: Normal Saline 500 ML IV (12:57)
[2022-11-11 13:01] LABS: Calcium 9.8 mg/dL (8.5-10.1)
[2022-11-11 13:02] LABS: Albumin 4.1 g/dL (3.4-5.0); Alkaline Phosphatase 85 U/L (46-116); BUN 12 mg/dL (7-18); Bilirubin, Total 0.6 mg/dL (0.2-1.0); CREATININE 0.9 mg/dL (0.55-1.02); Glucose 135 mg/dL (74-106); Potassium 4.1 mmol/L (3.5-5.1); Sodium 134 mmol/L (136-145); Total Protein 9.2 g/dL (6.4-8.2)
[2022-11-11] MEDS: Ondansetron 4 MG/2 ML VIAL IVP (13:02)
[2022-11-11 13:03] LABS: ALT 34 U/L (14-59); AST 36 U/L (15-37); Anion Gap 10.3 mmol/L (3-11); CO2 27.7 mmol/L (21.0-32.0); Chloride 96 mmol/L (98-107); Lipase 35 U/L (16-77)
[2022-11-11] MEDS: FAMOTIDINE 20 MG in Normal Saline 100 ML 400 MG IVPB (14:04)
[2022-11-11 15:21] LABS: Bilirubin Negative (Negative); Blood Trace-intact (Negative); Clarity Clear (Clear); Glucose Negative (Negative); Ketones Negative (Negative); Leukocyte Esterase Negative (Negative); Nitrite Negative (Negative); Urobilinogen 0.2 mg/dL (Up to 0.2)
[2022-11-11 15:22] LABS: Bacteria Negative HPF (Negative); C & S Indicated? No; Casts Negative LPF (Negative); Crystals Negative HPF (Negative); Epithelial Cells Few HPF (Negative); Mucus Trace (Negative); RBC 0-2 HPF (0-2); WBC Negative HPF (0-5)
[2022-11-11] MEDS: LORazepam 2 MG/ML VIAL 0.5 MG IVP (15:56)
[2022-11-11] MEDS: Lactated Ringers 1,000 ML 75 ML IV (16:59)
--- NOTE | 2022-11-11 17:43 | W.PM.HP.N ---
Date of service: 11/11/22 Time of Service: 17:43 Assessment and Plan Assessment and plan (1) Small bowel obstruction: Status: Resolved Assessment and plan: recurrent supportive care NGT decompression relistor for BM pt has signif iodine allergy and cannot give gastrografin. (2) Multiple myeloma in remission: Status: Chronic (3) GERD (gastroesophageal reflux disease): Status: Chronic Qualifiers: Esophagitis presence: esophagitis presence not specified Qualified Code(s): K21.9 - Gastro-esophageal reflux disease without esophagitis (4) Chronic hepatitis B: Status: Acute (5) Therapeutic opioid induced constipation: Status: Chronic (6) Chronic narcotic dependence: Status: Chronic (7) HTN (hypertension): Status: Chronic (8) Malignant neoplasm of uterus: (9) Hx of cholecystectomy: (10) S/P hysterectomy: (11) History of radiation therapy: Status: Acute History of Present Illness Narrative: Is a 72-year-old female well-known to the surgical service. She has a history of bowel obstructions. She also is on chronic narcotic therapy due to bony metastases from multiple myeloma. She suffers from chronic constipation and I think this does play a part of her recurrent bowel obstructions. She is open also had an open cholecystectomy and a hysterectomy. She also had pelvic radiation for endometrial cancer. Tuesday night she started having diffuse crampy abdominal pain. She woke up today and had pretty significant epigastric and lower abdominal/pelvic pain. Currently she is having mostly pelvic pain. She did have a small bowel movement early this morning. She has not passed any flatus since that time. She complains of nausea but she has not had any vomiting. She denies any chest pain or shortness of breath. She denies any trauma. She currently has no fever or elevated white count or peritoneal signs She recently had a colonoscopy because of her chronic bowel issues. And this was significant only for internal and external hemorrhoids. Review of Systems All systems reviewed & are unremarkable except as noted in HPI and below PFSH All Active Problems (Updated 11/11/22 @ 17:55 by María Elena Mcelroy DO) History of radiation therapy (Acute) Multiple myeloma in remission (Chronic) on revlimid GERD (gastroesophageal reflux disease) (Chronic) Chronic hepatitis B (Acute 12/29/16) Onychomycosis (Chronic) Radiation vulvitis (Chronic) Pain from bone metastases (Acute) maintained on morphine ER; managed by [facility] heme onc. 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 [place] to be due to opioid-induced constipation. Resolves with bowel rest. Malaria Malignant neoplasm of uterus 04/01/11 [facility]; ADENOCARCINOMA; ENDOMETROID TYPE ESTIMATED FIGO GRADE I. 04/2011 Hyst and BSO at [facility] Path= stage A1, Gr 11 Psoriasis Prabhu Barbour auricular syndrome Screening for malignant neoplasm of colon performed Surgical History H/O breast biopsy Right, 1o'clock, 12cm from nipple, US-guided needle core biopsy: negative for malignancy. fibroadipose tissue with assoc hemorrhage. History of cholecystectomy History of colonoscopy (~10/2022) Hx of cataract surgery Hx of cholecystectomy S/P hysterectomy Family History Mother , AGE 84 No problems noted. Father , AGE 92 No problems noted. Sister , AGE 79 No problems noted. Sister No problems noted. Brother , AGE 68 Stomach cancer Brother No problems noted. Brother No problems noted. Brother No problems noted. Brother No problems noted. Son No problems noted. 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 Pets and animals: No Sexually active: No Do you think of yourself as: straight/heterosexual Current gender identity: female What is your relationship status?: How often do you talk on the phone with friends or family?: twice per week How often do you get together with friends or relatives?: decline to answer How often do you attend gnosticist or sikhism services?: decline to answer Do you belong to any clubs or organized social groups?: no Panel score (0-1 are the most socially isolated patients): 1 What type of physical activity do you participate in: walking and running Duration: 30-45 minutes/day Frequency: 3-4 times per week Christianne/Zoroastrian: Presybeterian Special christianne needs: No Seatbelt use: always Drive intox or ride w/intox bus driver school: No Do you feel safe at home: Yes Do you feel safe in your relationship?: Yes Victim of physical abuse: No Victim of emotional abuse: No Victim of sexual abuse: No Meds Allergies and Home Medications Allergies Allergy/AdvReac Type Severity Reaction Status Date / Time iodine Allergy Intermediate Verified 11/11/22 12:18 DUST Allergy Unknown Uncoded 11/11/22 12:18 MOLD AND SMUT Allergy Unknown Uncoded 11/11/22 12:18 Home Medications Medication Instructions Recorded Confirmed Type aspirin 81 mg chewable tablet 81 mg PO DAILY 08/19/14 11/11/22 History (Aspirin Low-Strength) valacyclovir 500 mg tablet 500 mg PO BID #60 tabs 05/25/18 11/11/22 Rx lenalidomide 5 mg capsule 5 mg PO DAILY 02/21/19 11/11/22 History (Revlimid) omeprazole 40 mg capsule,delayed 40 mg PO DAILY PRN #90 tab-caps 02/21/19 11/11/22 History release nystatin 100,000 unit/gram topical 1 applic topical BID #30 grams 01/01/22 10/26/22 Rx cream triamcinolone acetonide 0.1 % 1 applic topical BID #30 grams 01/01/22 10/26/22 Rx topical cream acetaminophen 500 mg tablet 1,000 mg PO Q8H PRN PRN #60 tabs 08/02/22 11/11/22 Rx polyethylene glycol 3350 17 17 g PO HS PRN constipation 08/04/22 11/11/22 History gram/dose oral powder (Miralax) buprenorphine HCl 150 mcg buccal 150 mcg buccal Q12H #60 ea 08/20/22 11/11/22 Rx film gabapentin 300 mg capsule 300 mg PO TID #270 caps 08/20/22 11/11/22 Rx Exam Const General: cooperative, comfortable and no acute distress Nutritional Appearance: average body habitus Orientation: alert, awake and oriented x3 HENMT Ears: hearing grossly normal bilaterally Mouth: oral mucosae normal Teeth and gingiva: dentition normal Resp Effort & Inspection: normal respiratory effort and able to speak in complete sentences Auscultation: clear to auscultation bilaterally Cardio Rate: regular rate Rhythm: regular rhythm GI Other: mild distention pain in mid-abdomen and pelvis no BS post-surgical changes noted. Extrem General: no clubbing, cyanosis or edema Results Labs 11/11/22 12:32 11/11/22 12:32 Labs: Laboratory Results - last 24 hr 11/11/22 11/11/22 11/11/22 12:32 12:32 14:39 WBC 4.15 L RBC 4.37 Hgb 14.4 Hct 41.3 MCV 95 MCH 33.0 MCHC 34.9 RDW 12.8 Plt Count 223 MPV 8.5 Immature Gran % 0.2 Neutrophils % 80.3 Lymphocytes % 12.3 Monocytes % 6.3 Eosinophils % 0.2 Basophils % 0.7 Absolute Neutrophils 3.33 Absolute Lymphocytes 0.51 L Absolute Monocytes 0.26 Absolute Eosinophils 0.01 Absolute Basophils 0.03 Sodium 134 L Potassium 4.1 Chloride 96 L Carbon Dioxide 27.7 Anion Gap 10.3 BUN 12 Creatinine 0.9 Est GFR (CKD-EPI 2020) 67.50 Glucose 135 H Calcium 9.8 Magnesium 2.0 Total Bilirubin 0.6 AST 36 ALT 34 Alkaline Phosphatase 85 Total Protein 9.2 H Albumin 4.1 Lipase 35 Urine Color Yellow Urine Clarity Clear Urine pH 7.0 Ur Specific [place] 1.020 Urine Protein Trace H Urine Ketones Negative Urine Blood Trace-intact H Urine Nitrite Negative Urine Bilirubin Negative Urine Urobilinogen 0.2 Ur Leukocyte Esterase Negative Urine RBC 0-2 Urine WBC Negative Ur Epithelial Cells Few Urine Crystals Negative Urine Bacteria Negative Urine Casts Negative Urine Mucus Trace Ur Culture Indicated? No Urine Glucose Negative Last Vital Signs Temp 37.1 C 11/11/22 17:25 Pulse 70 11/11/22 17:25 Resp 17 11/11/22 17:25 BP 152/79 H 11/11/22 17:25 Pulse Ox 99 11/11/22 17:25 Time Spent Time spent with Patient: 40-54 minutes Time was spent: preparing to see the patient(eg.review tests), obtaining and/or reviewing separately otained hiistory, ordering medications,tests, procedures, referring, communicating with other health rn homecare, indepentently interpreting results, counseling the patient and care coordination
[2022-11-11] MEDS: ACETAMINOPHEN 1,000 MG/100 ML BTL 400 MG IVPB (18:04)
[2022-11-11] MEDS: Enoxaparin 40 MG/0.4 ML SYR SC (18:08)
[2022-11-11] MEDS: Methylnaltrexone 12 MG/0.6 ML VIAL 8 MG SC (18:08)
[2022-11-11] MEDS: MORPHine 2 MG/ML SYR IVP (20:32)
[2022-11-11] MEDS: Normal Saline Flush 10 ML SYR IVP (20:32)
[2022-11-12] MEDS: MORPHine 2 MG/ML SYR IVP ×4 (06:59→23:16)
[2022-11-12] MEDS: Lactated Ringers 1,000 ML 75 ML IV ×2 (07:00→21:23)
--- NOTE | 2022-11-12 07:00 | DI.RAD_ITS ---
Exam(s) XR ABDOMEN FLAT PLATE EXAM: 2D digital imaging was performed. CLINICAL HISTORY: sbo. COMPARISON: CT CT ABDOMEN PELVIS WO from 11/11/2022 TECHNIQUE: Supine views of the abdomen performed. FINDINGS: A nasogastric tube is been placed which projects in the stomach. Mildly dilated loops of small bowel are seen in the mid abdomen. The colon is not distended. Lung bases are clear. Scoliosis and degenerative changes in the spine. Sclerotic lesion again noted left ilium. IMPRESSION: Mild small-bowel dilatation seen centrally. DATA REPOSITORY: RADIATION DOSE DELIVERED:
[2022-11-12 07:19] VITALS: BP 146/75; PULSE 65; RESP 20; TEMP 36.9; O2SAT 100
[2022-11-12] MEDS: Pantoprazole 40 MG VIAL IVP (08:51)
--- NOTE | 2022-11-12 09:06 | PDOC.CMIN ---
Date of service: 11/12/22 Time of Service: 09:06 Care Management Initial Assmt Initial Assessment REASON FOR HOSPITALIZATION:: Ileus, N/v PREVIOUS FUNCTIONAL STATUS/SOCIAL/FAMILY SUPPORTS:: Reyna lives in a single family home in [place], [place] with her Mick. She has one son who lives in [place]. 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 She receives disability because of her multiple myeloma but is otherwise independent. She does not receive any community services. CURRENT FUNCTIONAL STATUS:: Reyna was sitting up in bed when CM met with her. She engaged readily with CM, known to her from previous admissions. Reyna explained that she is frustrated by the fact that she keeps developing either an ileus or bowel obstruction every few months. Sometimes it requires an inpatient stay and sometimes just an ED visit. She stated that it really limits her. She shared that she would love to go back to [facility] but is afraid to travel. ADVANCE DIRECTIVES:: On file. Mick SOLIZ Has patient been provided with info about the portal/API?: Yes Did the patient sign up for the portal?: No CODE STATUS:: Full Code INSURANCE COVERAGE / FINANCIAL ISSUES:: Medicare BC/BS CURRENT HOME/COMMUNITY SERVICES/EQUIPMENT:: none PRIMARY CARE PHYSICIAN:: Reyna Abrams POTENTIAL DISCHARGE NEEDS:: follow up with surgeon, PCP and plan of care PATIENT/FAMILY EDUCATION NEEDS:: Review of discharge instructions, limitations, diet, follow up plan and discuss [employer] TRANSPORTATION:: via private vehicle PLAN:: Anticipate Reyna will be discharged home with no new services. She will follow up with her surgeon and plan of care and transport with family. CM will follow and assess for discharge planning concerns. PFSH All Active Problems (Updated 11/11/22 @ 17:55 by María Elena Mcelroy DO) History of radiation therapy (Acute) Multiple myeloma in remission (Chronic) on revlimid GERD (gastroesophageal reflux disease) (Chronic) Chronic hepatitis B (Acute 12/29/16) Onychomycosis (Chronic) Radiation vulvitis (Chronic) Pain from bone metastases (Acute) maintained on morphine ER; managed [place] [facility] [place]. 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 [place] to be due to opioid-induced constipation. Resolves with bowel rest. Malaria Malignant neoplasm of uterus 04/01/11 [facility]; ADENOCARCINOMA; ENDOMETROID TYPE ESTIMATED FIGO GRADE I. 04/2011 Hyst and [place] [facility] Path= stage A1, Gr 11 Psoriasis Prabhu Barbour auricular syndrome Screening for malignant neoplasm of colon performed Surgical History H/O breast biopsy Right, 1o'clock, 12cm from nipple, US-guided needle core biopsy: negative for malignancy. fibroadipose tissue with assoc hemorrhage. History of cholecystectomy History of colonoscopy (~10/2022) Hx of cataract surgery Hx of cholecystectomy S/P hysterectomy Family History Mother , AGE 84 No problems noted. Father , AGE 92 No problems noted. Sister , AGE 79 No problems noted. Sister No problems noted. Brother , AGE 68 Stomach cancer Brother No problems noted. Brother No problems noted. Brother No problems noted. Brother No problems noted. Son No problems noted. 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 Pets and animals: No Sexually active: No Do you think of yourself as: straight/heterosexual Current gender identity: female What is your relationship status?: How often do you talk on the phone with friends or family?: twice per week How often do you get together with friends or relatives?: decline to answer How often do you attend jew or spiritism services?: decline to answer Do you belong to any clubs or organized social groups?: no Panel score (0-1 are the most socially isolated patients): 1 What type of physical activity do you participate in: walking and running Duration: 30-45 minutes/day Frequency: 3-4 times per week Chirstianne/Adventism: Scientology Special christinane needs: No Seatbelt use: always Drive intox or ride w/intox ems driver: No Do you feel safe at home: Yes Do you feel safe in your relationship?: Yes Victim of physical abuse: No Victim of emotional abuse: No Victim of sexual abuse: No
--- NOTE | 2022-11-12 14:20 | W.PM.PROGNOT ---
Date of Service Date of service: 11/12/22 Time of Service: 14:20 Assessment and Plan Assessment and plan (1) Hx SBO: Assessment and plan: Vi si doing OK. NG output has decreased, but is still bilious. BS are hypoactive Continue with bowel rest tonight. Recheck tomorrow Up and walking OK to clamp NG to walk around Subjective Subjective Interval history since last seen: Vi is doing well. feels better then yesterday. Has had a few small BM's. NG tube still with bilious output although decreased 300 cc recorded so far ABDO XRay still with some dilated loops of small bowel although dilatation is decreased Exam Const General: cooperative, comfortable and no acute distress Nutritional Appearance: average body habitus Orientation: alert and oriented x3 HENMT Head: normocephalic and atraumatic Resp Effort & Inspection: normal respiratory effort Auscultation: clear to auscultation bilaterally Cardio Rate: regular rate Rhythm: regular rhythm GI Inspection: normal to inspection Palpation: soft, no hepatosplenomegaly and nontender Auscultation: hypoactive bowel sounds Objective Last Vital Signs Temp 98.4 F 11/12/22 07:19 Pulse 65 11/12/22 07:19 Resp 20 11/12/22 07:19 BP 146/75 H 11/12/22 07:19 Pulse Ox 100 11/12/22 07:19 Laboratory Results - last 24 hr 11/11/22 14:39 Urine Color Yellow Urine Clarity Clear Urine pH 7.0 Ur Specific [place] 1.020 Urine Protein Trace H Urine Ketones Negative Urine Blood Trace-intact H Urine Nitrite Negative Urine Bilirubin Negative Urine Urobilinogen 0.2 Ur Leukocyte Esterase Negative Urine RBC 0-2 Urine WBC Negative Ur Epithelial Cells Few Urine Crystals Negative Urine Bacteria Negative Urine Casts Negative Urine Mucus Trace Ur Culture Indicated? No Urine Glucose Negative Time Spent with Patient Time Spent with Patient: 25-34 minutes Time was spent: preparing to see the patient(eg.review tests), obtaining and/or reviewing separately otained hiistory, referring, communicating with other health senior care provider, indepentently interpreting results, counseling the patient and care coordination
[2022-11-12 15:40] VITALS: BP 115/77; PULSE 72; TEMP 37.3; O2SAT 98
[2022-11-12] MEDS: Enoxaparin 40 MG/0.4 ML SYR SC (18:20)
[2022-11-12] MEDS: ACETAMINOPHEN 1,000 MG/100 ML BTL 400 MG IVPB (20:13)
[2022-11-12] MEDS: Normal Saline Flush 10 ML SYR IVP (23:16)
[2022-11-12 23:33] VITALS: BP 170/75; PULSE 64; RESP 20; TEMP 36.7; O2SAT 99
[2022-11-13] MEDS: MORPHine 2 MG/ML SYR IVP (03:09)
[2022-11-13 07:40] VITALS: BP 154/77; PULSE 68; RESP 18; TEMP 36.5; O2SAT 98
[2022-11-13] MEDS: Pantoprazole 40 MG VIAL IVP (08:06)
--- NOTE | 2022-11-13 09:15 | DI.RAD_ITS ---
Exam(s) XR ABDOMEN FLAT PLATE EXAM: 2D digital imaging was performed. CLINICAL HISTORY: ileus, N/V. COMPARISON: CR XR ABDOMEN FLAT PLATE from 11/12/2022 TECHNIQUE: Supine views of the abdomen performed. FINDINGS: BOWEL GAS PATTERN: Nondistended. Nasogastric tube remains in stomach. CALCIFICATIONS: No radiopaque calcifications. OSSEOUS STRUCTURES: Scoliosis and degenerative changes. OTHER FINDINGS: Lung bases are clear. IMPRESSION: 1. Nonobstructive bowel gas pattern. DATA REPOSITORY: RADIATION DOSE DELIVERED:
--- NOTE | 2022-11-13 10:03 | DI.VRAD_ITS ---
PROCEDURE INFORMATION: Exam: XR Abdomen Exam date and time: 11/13/2022 9:46 AM Age: 72 years old Clinical indication: Other: Ileus, n/v TECHNIQUE: Imaging protocol: Radiologic exam of the abdomen. Views: Frontal supine view of the abdomen. 1 View. COMPARISON: CR XR ABDOMEN FLAT PLATE 11/12/2022 8:02 AM FINDINGS: Tubes, catheters and devices: Nasogastric tube within the stomach Gastrointestinal tract: Normal. No bowel dilation. Bones/joints: Multilevel degenerative change with scoliosis. Sclerotic lesion in the left ilium. IMPRESSION: Nasogastric tube within the stomach. Nonspecific bowel gas pattern Dictated and Authenticated by: Elissa Cisse MD. Ordering:NAM Ring MD
[2022-11-13 12:24] LABS: Absolute Basophil Count 0.02 10^3/uL (0.0-0.2); Absolute Eosinophil Count 0.06 10^3/uL (0.0-0.7); Absolute Monocyte Count 0.34 10^3/uL (0.1-0.8); Absolute Neutrophil Count 1.97 10^3/uL (1.2-6.7); Basophils % 0.6; Eosinophils % 1.7; HCT 34.6 % (36.0-46.0); HGB 12.1 g/dL (11.2-15.7); Lymphocytes % 31.5; MCH 33.3 pg (27.0-33.0); MCV 95 fL (80-95); MPV 9.1 fL (8.0-11.0); Monocytes % 9.7; Neutrophils % 56.5; Platelet Count 192 10^3/uL (130-400); RBC 3.63 10^6/uL (3.93-5.22); RDW 12.9 % (11.7-14.6); WBC 3.49 10^3/uL (4.4-10.8)
--- NOTE | 2022-11-13 14:56 | W.PM.DS.N ---
Date of service: 11/13/22 Time of Service: 14:57 DS: Diagnosis Discharge Diagnosis (1) Hx SBO: Discharge Plan Disposition Patient Disposition: Home Condition: Stable Discharge Details Reason For Visit: Ileus, N/V Admit Date/Time: 11/11/22 15:27 Admit Provider: María Elena Mcelroy Attending Provider: María Elena Mcelroy Primary Care Provider: Reyna Abrams Hospital Course Hospital Course: Mrs Haskins is a pleasant 72 year old female with a history of SBO and ileus. Some of it is thought to be due to her chronic pain medication use. She was re-admitted for SBO on 11/11/22. She had an NG tube placed. On PAD #1 her output decreased but she was not passing flatus and her Abdo Xray showed a Partial SBO. On the day of discharge her XRay was normal. Her NG tube was removed. She was given clear liquids for 2 meals that she tolerated. I was going to order a regular dinner and get her home tomorrow. Patient feels really well and would like to go home today. She is having diarrhea now which is not unusual after having a SBO. Recommend a regular diet. Once diarrhea has resolved she should start taking 1/2 a capfull of Miralax daily to try and avoid constipation. I also discussed trying to wean off her pain medications No need for surgery follow up as outpatient Home Meds and New Rx's Prescriptions: Continued triamcinolone acetonide 0.1 % cream 1 applic TP BID Qty: 30 1RF Patient Comments: pt not sure if taking nystatin 100,000 unit/gram cream 1 applic TP BID Qty: 30 1RF Patient Comments: not taking per pt buprenorphine HCl 150 mcg film 150 mcg buccal Q12H Qty: 60 3RF Patient Comments: pt not sure if still taking gabapentin 300 mg capsule 300 mg PO TID Qty: 270 3RF Hold Instructions: Changed by Provider lenalidomide [Revlimid] 5 mg capsule 5 mg PO DAILY omeprazole 40 mg capsule,delayed release(DR/EC) 40 mg PO DAILY PRNQty: 90 Patient Comments: 04/09/16 takes prn. md aspirin [Aspirin Low-Strength] 81 MG tablet,chewable 81 mg PO DAILY Patient Comments: 09-21-17 pt reports that she takes this med every other day. hb valacyclovir 500 mg tablet 500 mg PO BID Qty: 60 3RF acetaminophen 500 mg Tablet 1,000 mg PO Q8H PRN PRNQty: 60 0RF Hold Instructions: Changed by Provider Changed polyethylene glycol 3350 [Miralax] 17 gram/dose powder 8.5 g PO HS Qty: 0 0RF Rx Instructions: take a dose at bedtime if no BM during the day Discharge Instructions Instructions: Bowel Obstruction (DC) Referrals: Reyna Abrams MD [Primary Care Provider] - Activity:: Activity as Tolerated Equipment/Supplies:: No Equipment Needed Diet:: As Tolerated Discharge Orders Discharge Orders: Discharge Order (Routine); Ordered 11/13/22 Ordered By: Macarena Castrejon DS: Summary Time Spent with Patient providing and/or coordinating discharge services: Greater than 30 minutes Status at Discharge Functional status at discharge: independent ambulation Overall status at discharge: patient is back to baseline Mental Status: mental status grossly normal Speech and Movement: speech and movement normal Mood: congruent mood Affect: normal affect Exam Const General: cooperative, comfortable and no acute distress Nutritional Appearance: average body habitus Orientation: alert and oriented x3 HENMT Head: normocephalic and atraumatic Resp Effort & Inspection: normal respiratory effort Auscultation: clear to auscultation bilaterally Cardio Rate: regular rate Rhythm: regular rhythm GI Inspection: normal to inspection Palpation: soft, no hepatosplenomegaly and nontender Auscultation: normal bowel sounds Psych Mental Status: mental status grossly normal Speech and Movement: speech and movement normal Mood: congruent mood Affect: normal affect DS: Data Vitals/I&O Vitals and I&O: Vital Signs Temperature 97.7 F 11/13/22 07:40 Temperature Source Tympanic 11/13/22 07:40 Pulse 68 11/13/22 07:40 Pulse Rhythm Regular 11/13/22 07:30 Pulse 78 11/11/22 16:20 Respiratory Rate 18 11/13/22 07:40 Respiratory Effort Normal, Non-Labored 11/13/22 07:30 Respiratory Depth Normal 11/13/22 07:30 Respiratory Pattern Normal 11/13/22 07:30 Blood Pressure 154/77 H 11/13/22 07:40 Blood Pressure Mean 89 11/11/22 16:00 Blood Pressure Position Sitting 11/11/22 12:16 Pulse Oximetry 98 11/13/22 07:40 Oxygen Delivery Method Room Air 11/13/22 07:40 Oxygen Flow Rate 0 11/13/22 07:40 Pain Level 10 11/13/22 07:40 Comment RN informed of VS/ VS taken upon admission 11/11/22 17:25 Intake & Output 11/12/22 11/13/22 11/13/22 23:59 11:59 23:59 Intake Total 1092.50 / 1842.50 Output Total 800 / 1400 1200 / 1500 300 / 1500 Balance 292.50 / 442.50 -1200 / -1500 -300 / -1500 Intake: IV 1092.50 / 1842.50 Output: Gastric Drainage 800 / 1100 250 / 550 300 / 550 Left Nare 800 / 1100 250 / 550 300 / 550 Urine 950 / 950 Other: Urine Color Yellow Yellow Urine Appearance Clear Urine Odor None Stool Size Moderate Stool Characteristics Soft Brown Voiding Methods Bedside Commode Toilet Data Completed and Pending Labs on day of discharge: Labs from last 24 hours 11/13/22 11:58 WBC 3.49 L RBC 3.63 L Hgb 12.1 D Hct 34.6 L MCV 95 MCH 33.3 H MCHC 35.0 RDW 12.9 Plt Count 192 MPV 9.1 Immature Gran % 0.0 Neutrophils % 56.5 Lymphocytes % 31.5 Monocytes % 9.7 Eosinophils % 1.7 Basophils % 0.6 Nucleated RBC % 0.0 Absolute Neutrophils 1.97 Absolute Lymphocytes 1.10 L Absolute Monocytes 0.34 Absolute Eosinophils 0.06 Absolute Basophils 0.02 PFSH All Active Problems History of radiation therapy (Acute) Multiple myeloma in remission (Chronic) on revlimid GERD (gastroesophageal reflux disease) (Chronic) Chronic hepatitis B (Acute 12/29/16) Onychomycosis (Chronic) Radiation vulvitis (Chronic) Pain from bone metastases (Acute) maintained on morphine ER; managed by [facility] heme onc. 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 [place] to be due to opioid-induced constipation. Resolves with bowel rest. Malaria Malignant neoplasm of uterus 04/01/11 [facility]; ADENOCARCINOMA; ENDOMETROID TYPE ESTIMATED FIGO GRADE I. 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 fibroadipose tissue with assoc hemorrhage. History of cholecystectomy History of colonoscopy (~10/2022) Hx of cataract surgery Hx of cholecystectomy S/P hysterectomy Family History Mother , AGE 84 No problems noted. Father , AGE 92 No problems noted. Sister , AGE 79 No problems noted. Sister No problems noted. Brother , AGE 68 Stomach cancer Brother No problems noted. Brother No problems noted. Brother No problems noted. Brother No problems noted. Son No problems noted. 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 Pets and animals: No Sexually active: No Do you think of yourself as: straight/heterosexual Current gender identity: female What is your relationship status?: How often do you talk on the phone with friends or family?: twice per week How often do you get together with friends or relatives?: decline to answer How often do you attend orthodox or latter-day services?: decline to answer Do you belong to any clubs or organized social groups?: no Panel score (0-1 are the most socially isolated patients): 1 What type of physical activity do you participate in: walking and running Duration: 30-45 minutes/day Frequency: 3-4 times per week Christianne/Amish: Jehovah'S Witness Special christianne needs: No Seatbelt use: always 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
--- NOTE | 2022-11-13 15:43 | CMDISCH_ITS ---
Date of service: 11/13/22 Time of Service: 15:43 LACE Index Scoring Tool Questions: Length of Stay (in days): 2 Was the patient admitted via the E.D.?: Yes E.D. Visits: 2 Answers: Total Score: 7 Risk of Readmission: Low Risk Care Management Discharge Plan Reason for Hospitalization: Ileus, N/v Discharge Plan: Vi will return home today with no new services. Her will drive her home via private vehicle. She will follow up with her PCP and disch arge plan of care. She is happy to be going home. Patient/Family Education Needs: Review discharge instructions and limitations, discussion of self care needs including ask me three.
== END 2022-11-13 15:40 | disposition home or self-care (01) | DRG 389 ==
LOC: ER 15:40 → MS 16:49
PROVIDERS: Admitting Provider Surgery; Emergency Provider Registered Nurse Emergency; PCP Family Medicine; Visit Provider Surgery
DX: K56.609 Unspecified intestinal obstruction, unspecified as to partial versus complete obstruction (principal); B02.21 Postherpetic geniculate ganglionitis; B18.1 Chronic viral hepatitis B without delta-agent; C90.01 Multiple myeloma in remission; C79.51 Secondary malignant neoplasm of bone; K21.9 Gastro-esophageal reflux disease without esophagitis; I10 Essential (primary) hypertension; Z79.899 Other long term (current) drug therapy; Z86.13 Personal history of malaria; K59.03 Drug induced constipation; T40.2X5A Adverse effect of other opioids, initial encounter; Z85.42 Personal history of malignant neoplasm of other parts of uterus
CPT/HCPCS: 36415; 80053; 83690; 96361; 96365; 96375; 99222; 99233; 99236; 99239; 99285; J1650; 74018; 74176; 81003; 81015; 83735; 85025; J0131; J2060; J2270; J2405

== ENCOUNTER 2022-11-15 13:48 | Outpatient (CLI) | payer MEDICARE, BC, SELFPAY ==
[2022-11-15 13:18] LABS: Abs Immature Grans 0.01 10^3/uL (0.0-0.06); Absolute Basophil Count 0.02 10^3/uL (0.0-0.2); Absolute Eosinophil Count 0.13 10^3/uL (0.0-0.7); Absolute Lymphocyte Count 1.59 10^3/uL (1.2-3.4); Absolute Monocyte Count 0.42 10^3/uL (0.1-0.8); Absolute Neutrophil Count 1.16 10^3/uL (1.2-6.7); Basophils % 0.6; Eosinophils % 3.9; HCT 32.4 % (36.0-46.0); HGB 11.5 g/dL (11.2-15.7); Immature Grans % 0.3; Lymphocytes % 47.7; MCH 33.2 pg (27.0-33.0); MCHC 35.5 % (32.0-36.0); MCV 94 fL (80-95); MPV 8.8 fL (8.0-11.0); Monocytes % 12.6; Neutrophils % 34.9; Platelet Count 183 10^3/uL (130-400); RBC 3.46 10^6/uL (3.93-5.22); RDW 12.7 % (11.7-14.6); RDW-SD 43.3 fL; WBC 3.33 10^3/uL (4.4-10.8)
[2022-11-15 13:51] LABS: ALT 59 U/L (14-59); AST 56 U/L (15-37); Albumin 3.5 g/dL (3.4-5.0); Alkaline Phosphatase 70 U/L (46-116); Anion Gap 6.6 mmol/L (3-11); BUN 5 mg/dL (7-18); Bilirubin, Total 0.4 mg/dL (0.2-1.0); CO2 30.4 mmol/L (21.0-32.0); CREATININE 0.9 mg/dL (0.55-1.02); Chloride 98 mmol/L (98-107); Glucose 101 mg/dL (74-106); Sodium 135 mmol/L (136-145); Total Protein 7.7 g/dL (6.4-8.2)
[2022-11-15 14:05] LABS: Potassium 2.9 mmol/L (3.5-5.1)
[2022-11-16 09:37] LABS: IgA 376 mg/dL (85-499); IgG 1557 mg/dL (610-1616); IgM 95 mg/dL (35-242); Kappa Free Light Chain 3.42 mg/dL (0.33-1.94); Lambda Free Light Chain 1.78 mg/dL (0.57-2.63)
[2022-11-16 12:46] LABS: Albumin 54.3 % (55.8-66.1); Total Protein 7.4 g/dL (6.3-8.2)
== END 2022-11-15 13:49 | disposition home or self-care (01) ==
LOC: LBO 13:49
PROVIDERS: PCP Family Medicine; Visit Provider Nurse Practitioner Adult Health
DX: C90.00 Multiple myeloma not having achieved remission (principal)
CPT/HCPCS: 36415; 80053; 82784; 83883; 84165; 85025

== ENCOUNTER 2022-11-22 13:24 | Outpatient (CLI) | payer MEDICARE, BC, SELFPAY ==
[2022-11-22 13:18] LABS: Abs Immature Grans 0.01 10^3/uL (0.0-0.06); Absolute Basophil Count 0.03 10^3/uL (0.0-0.2); Absolute Eosinophil Count 0.12 10^3/uL (0.0-0.7); Absolute Monocyte Count 0.24 10^3/uL (0.1-0.8); Absolute Neutrophil Count 1.21 10^3/uL (1.2-6.7); Eosinophils % 3.9; Immature Grans % 0.3; Lymphocytes % 48.2; MCHC 34.3 % (32.0-36.0); MCV 96 fL (80-95); MPV 8.6 fL (8.0-11.0); Monocytes % 7.7; Neutrophils % 38.9; Platelet Count 186 10^3/uL (130-400); RBC 3.64 10^6/uL (3.93-5.22); RDW 12.7 % (11.7-14.6); RDW-SD 44.2 fL; WBC 3.11 10^3/uL (4.4-10.8)
[2022-11-22 14:00] LABS: ALT 31 U/L (14-59); AST 22 U/L (15-37); Albumin 3.5 g/dL (3.4-5.0); Alkaline Phosphatase 66 U/L (46-116); Anion Gap 4.6 mmol/L (3-11); BUN 5 mg/dL (7-18); Bilirubin, Total 0.5 mg/dL (0.2-1.0); CO2 30.4 mmol/L (21.0-32.0); CREATININE 0.7 mg/dL (0.55-1.02); Calcium 8.5 mg/dL (8.5-10.1); Chloride 94 mmol/L (98-107); Estimated GFR 91.26 (mL/min/1.73m2); Ferritin 26 ng/mL (8-252); Glucose 94 mg/dL (74-106); Potassium 4.6 mmol/L (3.5-5.1); Sodium 129 mmol/L (136-145); TSH 1.75 uIU/mL (0.36-3.74); Total Protein 7.7 g/dL (6.4-8.2); Vitamin B12 181 pg/mL (193-986)
[2022-11-22 14:02] LABS: Folate > 20.0 ng/mL (8.6-20.0)
[2022-11-22 14:04] LABS: Iron 88 ug/dL (50-170); Total Iron Binding Capacity 390 ug/dL (250-450); Transferrin Sat 23 % (15-50)
[2022-11-23 10:09] LABS: IgA 393 mg/dL (85-499); IgG 1697 mg/dL (610-1616); IgM 67 mg/dL (35-242); Kappa Free Light Chain 3.82 mg/dL (0.33-1.94); Lambda Free Light Chain 1.89 mg/dL (0.57-2.63)
[2022-11-23 14:40] LABS: Albumin 54.8 % (55.8-66.1); Albumin g/dL 4.3 g/dL (3.6-5.2); Total Protein 7.9 g/dL (6.3-8.2)
[2022-11-24 13:35] LABS: Erythropoietin 25.3 mIU/mL (2.6 - 18.5)
== END 2022-11-22 13:25 | disposition home or self-care (01) ==
LOC: LBO 13:24
PROVIDERS: PCP Family Medicine; Visit Provider Nurse Practitioner Adult Health
DX: C90.00 Multiple myeloma not having achieved remission (principal); D64.9 Anemia, unspecified; Z79.899 Other long term (current) drug therapy
CPT/HCPCS: 36415; 80053; 82668; 82784; 82607; 82728; 82746; 83540; 83550; 83883; 84165; 84443; 85025

== ENCOUNTER 2022-12-13 02:08 | Outpatient (CLI) | payer MEDICARE, BC, SELFPAY ==
[2022-12-13 14:00] LABS: Absolute Basophil Count 0.02 10^3/uL (0.0-0.2); Absolute Eosinophil Count 0.06 10^3/uL (0.0-0.7); Absolute Lymphocyte Count 1.23 10^3/uL (1.2-3.4); Absolute Monocyte Count 0.24 10^3/uL (0.1-0.8); Absolute Neutrophil Count 1.07 10^3/uL (1.2-6.7); Basophils % 0.8; Eosinophils % 2.3; HCT 33.7 % (36.0-46.0); HGB 11.6 g/dL (11.2-15.7); Lymphocytes % 46.9; MCH 33.2 pg (27.0-33.0); MCHC 34.4 % (32.0-36.0); MCV 97 fL (80-95); MPV 8.7 fL (8.0-11.0); Monocytes % 9.2; Neutrophils % 40.8; Platelet Count 211 10^3/uL (130-400); RBC 3.49 10^6/uL (3.93-5.22); RDW 13.1 % (11.7-14.6); RDW-SD 46.4 fL; WBC 2.62 10^3/uL (4.4-10.8)
[2022-12-13 14:55] LABS: Iron 114 ug/dL (50-170); Total Iron Binding Capacity 378 ug/dL (250-450); Transferrin Sat 30 % (15-50)
[2022-12-13 15:06] LABS: ALT 24 U/L (14-59); AST 24 U/L (15-37); Albumin 3.4 g/dL (3.4-5.0); Alkaline Phosphatase 60 U/L (46-116); Anion Gap 5.5 mmol/L (3-11); BUN 8 mg/dL (7-18); Bilirubin, Total 0.5 mg/dL (0.2-1.0); CO2 28.5 mmol/L (21.0-32.0); CREATININE 0.7 mg/dL (0.55-1.02); Calcium 8.7 mg/dL (8.5-10.1); Chloride 98 mmol/L (98-107); Estimated GFR 91.26 (mL/min/1.73m2); Ferritin 23 ng/mL (8-252); Glucose 91 mg/dL (74-106); Potassium 3.9 mmol/L (3.5-5.1); Sodium 132 mmol/L (136-145); TSH 1.43 uIU/mL (0.36-3.74); Total Protein 7.7 g/dL (6.4-8.2); Vitamin B12 108 pg/mL (193-986)
[2022-12-13 15:09] LABS: Folate > 20.0 ng/mL (8.6-20.0)
[2022-12-14 10:14] LABS: IgA 366 mg/dL (85-499); IgG 1656 mg/dL (610-1616); IgM 61 mg/dL (35-242); Kappa Free Light Chain 3.72 mg/dL (0.33-1.94); Lambda Free Light Chain 1.59 mg/dL (0.57-2.63)
[2022-12-14 15:14] LABS: Albumin g/dL 4.1 g/dL (3.6-5.2); Total Protein 7.4 g/dL (6.3-8.2)
== END 2022-12-13 02:09 | disposition home or self-care (01) ==
LOC: LBO 02:09
PROVIDERS: PCP Family Medicine; Visit Provider Internal Medicine Hematology & Oncology
DX: C90.00 Multiple myeloma not having achieved remission (principal); D64.9 Anemia, unspecified; Z79.899 Other long term (current) drug therapy
CPT/HCPCS: 36415; 80053; 82668; 82784; 82607; 82728; 82746; 83540; 83550; 83883; 84165; 84443; 85025

== ENCOUNTER 2022-12-20 04:42 | Outpatient (CLI) | payer MEDICARE, BC, SELFPAY ==
[2022-12-20 13:22] LABS: Abs Immature Grans 0.01 10^3/uL (0.0-0.06); Absolute Basophil Count 0.02 10^3/uL (0.0-0.2); Absolute Eosinophil Count 0.06 10^3/uL (0.0-0.7); Absolute Lymphocyte Count 1.15 10^3/uL (1.2-3.4); Absolute Monocyte Count 0.22 10^3/uL (0.1-0.8); Absolute Neutrophil Count 2.04 10^3/uL (1.2-6.7); Basophils % 0.6; Eosinophils % 1.7; HCT 32.3 % (36.0-46.0); HGB 11.4 g/dL (11.2-15.7); Immature Grans % 0.3; Lymphocytes % 32.9; MCH 33.7 pg (27.0-33.0); MCHC 35.3 % (32.0-36.0); MCV 96 fL (80-95); MPV 8.9 fL (8.0-11.0); Monocytes % 6.3; Neutrophils % 58.2; Platelet Count 187 10^3/uL (130-400); RBC 3.38 10^6/uL (3.93-5.22); RDW-SD 45.6 fL
[2022-12-20 13:46] LABS: ALT 21 U/L (14-59); AST 28 U/L (15-37); Albumin 3.4 g/dL (3.4-5.0); Alkaline Phosphatase 65 U/L (46-116); Anion Gap 5.4 mmol/L (3-11); BUN 5 mg/dL (7-18); Bilirubin, Total 0.4 mg/dL (0.2-1.0); CO2 27.6 mmol/L (21.0-32.0); CREATININE 0.7 mg/dL (0.55-1.02); Calcium 8.9 mg/dL (8.5-10.1); Chloride 97 mmol/L (98-107); Estimated GFR 91.26 (mL/min/1.73m2); Glucose 91 mg/dL (74-106); Sodium 130 mmol/L (136-145); Total Protein 8.1 g/dL (6.4-8.2)
[2022-12-21 09:49] LABS: IgA 401 mg/dL (85-499); IgG 1670 mg/dL (610-1616); IgM 65 mg/dL (35-242); Kappa Free Light Chain 2.96 mg/dL (0.33-1.94); Lambda Free Light Chain 1.45 mg/dL (0.57-2.63)
[2022-12-21 15:07] LABS: Albumin g/dL 4.1 g/dL (3.6-5.2); Total Protein 7.7 g/dL (6.3-8.2)
== END 2022-12-20 04:43 | disposition home or self-care (01) ==
PROVIDERS: PCP Family Medicine; Visit Provider Nurse Practitioner Adult Health
DX: C90.00 Multiple myeloma not having achieved remission (principal)
CPT/HCPCS: 36415; 80053; 82784; 83883; 84165; 85025

== ENCOUNTER → 2023-01-11 13:51 | Outpatient (BNVA) | payer MEDICARE, BC, SELFPAY | PROVIDERS: PCP Family Medicine; Referring Provider Family Medicine; Visit Provider Nurse Practitioner Adult Health | DX: R20.2 Paresthesia of skin (principal); I10 Essential (primary) hypertension | CPT/HCPCS: 99203; 99213 ==

== ENCOUNTER 2023-01-17 04:48 | Outpatient (CLI) | payer MEDICARE, BC, SELFPAY ==
[2023-01-17 13:19] LABS: Abs Immature Grans 0.01 10^3/uL (0.0-0.06); Absolute Basophil Count 0.01 10^3/uL (0.0-0.2); Absolute Lymphocyte Count 1.32 10^3/uL (1.2-3.4); Absolute Monocyte Count 0.26 10^3/uL (0.1-0.8); Absolute Neutrophil Count 1.23 10^3/uL (1.2-6.7); Basophils % 0.3; Eosinophils % 3.4; HCT 34.7 % (36.0-46.0); HGB 12.3 g/dL (11.2-15.7); Immature Grans % 0.3; Lymphocytes % 45.1; MCH 34.2 pg (27.0-33.0); MCHC 35.4 % (32.0-36.0); MCV 96 fL (80-95); MPV 8.4 fL (8.0-11.0); Monocytes % 8.9; Platelet Count 174 10^3/uL (130-400); RDW 13.5 % (11.7-14.6); RDW-SD 48.4 fL; WBC 2.93 10^3/uL (4.4-10.8)
[2023-01-17 13:59] LABS: ALT 24 U/L (14-59); AST 25 U/L (15-37); Albumin 3.5 g/dL (3.4-5.0); Alkaline Phosphatase 61 U/L (46-116); Anion Gap 6.5 mmol/L (3-11); BUN 12 mg/dL (7-18); Bilirubin, Total 0.4 mg/dL (0.2-1.0); CO2 27.5 mmol/L (21.0-32.0); CREATININE 0.6 mg/dL (0.55-1.02); Chloride 100 mmol/L (98-107); Estimated GFR 94.72 (mL/min/1.73m2); Glucose 97 mg/dL (74-106); Potassium 3.9 mmol/L (3.5-5.1); Sodium 134 mmol/L (136-145); Total Protein 7.9 g/dL (6.4-8.2)
[2023-01-18 09:52] LABS: IgA 400 mg/dL (85-499); IgG 1591 mg/dL (610-1616); IgM 82 mg/dL (35-242); Kappa Free Light Chain 2.98 mg/dL (0.33-1.94)
[2023-01-18 12:38] LABS: Albumin 55.9 % (55.8-66.1); Albumin g/dL 4.1 g/dL (3.6-5.2); Total Protein 7.4 g/dL (6.3-8.2)
== END 2023-01-17 04:49 | disposition home or self-care (01) ==
PROVIDERS: PCP Family Medicine; Visit Provider Nurse Practitioner Adult Health
DX: C90.00 Multiple myeloma not having achieved remission (principal)
CPT/HCPCS: 36415; 80053; 82784; 83883; 84165; 85025

== ENCOUNTER 2023-02-14 20:45 | Outpatient (CLI) | payer MEDICARE, BC, SELFPAY ==
[2023-02-14 13:27] LABS: Abs Immature Grans 0.01 10^3/uL (0.0-0.06); Absolute Basophil Count 0.02 10^3/uL (0.0-0.2); Absolute Eosinophil Count 0.14 10^3/uL (0.0-0.7); Absolute Lymphocyte Count 1.39 10^3/uL (1.2-3.4); Absolute Monocyte Count 0.23 10^3/uL (0.1-0.8); Absolute Neutrophil Count 1.25 10^3/uL (1.2-6.7); Basophils % 0.7; Eosinophils % 4.6; HCT 36.7 % (36.0-46.0); HGB 13.1 g/dL (11.2-15.7); Immature Grans % 0.3; Lymphocytes % 45.7; MCH 34.7 pg (27.0-33.0); MCHC 35.7 % (32.0-36.0); MCV 97 fL (80-95); MPV 8.6 fL (8.0-11.0); Monocytes % 7.6; Neutrophils % 41.1; Platelet Count 160 10^3/uL (130-400); RBC 3.78 10^6/uL (3.93-5.22); RDW 12.7 % (11.7-14.6); RDW-SD 44.7 fL; WBC 3.04 10^3/uL (4.4-10.8)
[2023-02-14 13:38] LABS: ALT 30 U/L (14-59); AST 24 U/L (15-37); Albumin 3.8 g/dL (3.4-5.0); Alkaline Phosphatase 62 U/L (46-116); Anion Gap 5.9 mmol/L (3-11); BUN 12 mg/dL (7-18); Bilirubin, Total 0.5 mg/dL (0.2-1.0); CO2 29.1 mmol/L (21.0-32.0); CREATININE 0.7 mg/dL (0.55-1.02); Calcium 9.3 mg/dL (8.5-10.1); Chloride 97 mmol/L (98-107); Estimated GFR 91.26 (mL/min/1.73m2); Glucose 97 mg/dL (74-106); Potassium 3.9 mmol/L (3.5-5.1); Sodium 132 mmol/L (136-145); Total Protein 8.1 g/dL (6.4-8.2)
[2023-02-15 09:31] LABS: IgA 423 mg/dL (85-499); IgG 1744 mg/dL (610-1616); IgM 86 mg/dL (35-242); Kappa Free Light Chain 3.28 mg/dL (0.33-1.94); Lambda Free Light Chain 1.28 mg/dL (0.57-2.63)
[2023-02-15 14:16] LABS: Albumin 56.6 % (55.8-66.1); Albumin g/dL 4.7 g/dL (3.6-5.2); Total Protein 8.3 g/dL (6.3-8.2)
== END 2023-02-14 20:46 | disposition home or self-care (01) ==
LOC: LBO 20:47
PROVIDERS: PCP Family Medicine; Visit Provider Nurse Practitioner Adult Health
DX: C90.00 Multiple myeloma not having achieved remission (principal)
CPT/HCPCS: 36415; 80053; 82784; 83883; 84165; 85025

== ENCOUNTER 2023-03-14 04:44 | Outpatient (CLI) | payer MEDICARE, BC, SELFPAY ==
[2023-03-14 13:22] LABS: Abs Immature Grans 0.01 10^3/uL (0.0-0.06); Absolute Basophil Count 0.02 10^3/uL (0.0-0.2); Absolute Eosinophil Count 0.11 10^3/uL (0.0-0.7); Absolute Lymphocyte Count 1.13 10^3/uL (1.2-3.4); Absolute Monocyte Count 0.25 10^3/uL (0.1-0.8); Absolute Neutrophil Count 2.21 10^3/uL (1.2-6.7); Basophils % 0.5; Eosinophils % 2.9; HCT 34.8 % (36.0-46.0); HGB 12.2 g/dL (11.2-15.7); Immature Grans % 0.3; Lymphocytes % 30.3; MCH 34.5 pg (27.0-33.0); MCHC 35.1 % (32.0-36.0); MCV 98 fL (80-95); MPV 8.3 fL (8.0-11.0); Monocytes % 6.7; Neutrophils % 59.3; Platelet Count 169 10^3/uL (130-400); RBC 3.54 10^6/uL (3.93-5.22); RDW 12.2 % (11.7-14.6); RDW-SD 44.3 fL; WBC 3.73 10^3/uL (4.4-10.8)
[2023-03-14 14:01] LABS: Iron 104 ug/dL (50-170); Total Iron Binding Capacity 306 ug/dL (250-450); Transferrin Sat 34 % (15-50)
[2023-03-14 14:07] LABS: ALT 26 U/L (14-59); AST 23 U/L (15-37); Albumin 3.6 g/dL (3.4-5.0); Alkaline Phosphatase 63 U/L (46-116); Anion Gap 6.8 mmol/L (3-11); BUN 8 mg/dL (7-18); Bilirubin, Total 0.4 mg/dL (0.2-1.0); CO2 28.2 mmol/L (21.0-32.0); CREATININE 0.7 mg/dL (0.55-1.02); Calcium 8.8 mg/dL (8.5-10.1); Chloride 98 mmol/L (98-107); Estimated GFR 91.26 (mL/min/1.73m2); Ferritin 312 ng/mL (8-252); Glucose 95 mg/dL (74-106); Potassium 3.6 mmol/L (3.5-5.1); Sodium 133 mmol/L (136-145); Total Protein 8.2 g/dL (6.4-8.2); Vitamin B12 398 pg/mL (193-986)
[2023-03-15 09:51] LABS: IgA 345 mg/dL (85-499); IgG 1484 mg/dL (610-1616); IgM 63 mg/dL (35-242); Kappa Free Light Chain 2.76 mg/dL (0.33-1.94); Lambda Free Light Chain 1.37 mg/dL (0.57-2.63)
[2023-03-15 13:42] LABS: Albumin 54.7 % (55.8-66.1); Albumin g/dL 4.2 g/dL (3.6-5.2); Total Protein 7.7 g/dL (6.3-8.2)
== END 2023-03-14 04:45 | disposition home or self-care (01) ==
PROVIDERS: PCP Family Medicine; Visit Provider Internal Medicine Hematology & Oncology
DX: D50.9 Iron deficiency anemia, unspecified (principal); C90.01 Multiple myeloma in remission
CPT/HCPCS: 36415; 80053; 82784; 82607; 82728; 83540; 83550; 83883; 84165; 85025

== ENCOUNTER 2023-04-11 05:11 | Outpatient (CLI) | payer MEDICARE, BC, SELFPAY ==
[2023-04-11 13:29] LABS: Abs Immature Grans 0.01 10^3/uL (0.0-0.06); Absolute Basophil Count 0.03 10^3/uL (0.0-0.2); Absolute Eosinophil Count 0.08 10^3/uL (0.0-0.7); Absolute Lymphocyte Count 1.51 10^3/uL (1.2-3.4); Absolute Monocyte Count 0.23 10^3/uL (0.1-0.8); Absolute Neutrophil Count 2.17 10^3/uL (1.2-6.7); Basophils % 0.7; HCT 36.1 % (36.0-46.0); HGB 13.1 g/dL (11.2-15.7); Immature Grans % 0.2; Lymphocytes % 37.5; MCH 35.4 pg (27.0-33.0); MCHC 36.3 % (32.0-36.0); MCV 98 fL (80-95); MPV 8.6 fL (8.0-11.0); Monocytes % 5.7; Neutrophils % 53.9; Platelet Count 221 10^3/uL (130-400); RDW 12.7 % (11.7-14.6); RDW-SD 45.4 fL; WBC 4.03 10^3/uL (4.4-10.8)
[2023-04-11 13:56] LABS: Iron 138 ug/dL (50-170); Total Iron Binding Capacity 332 ug/dL (250-450); Transferrin Sat 42 % (15-50)
[2023-04-11 14:14] LABS: ALT 28 U/L (14-59); AST 20 U/L (15-37); Albumin 3.7 g/dL (3.4-5.0); Alkaline Phosphatase 74 U/L (46-116); Anion Gap 4.1 mmol/L (3-11); BUN 11 mg/dL (7-18); Bilirubin, Total 0.5 mg/dL (0.2-1.0); CO2 28.9 mmol/L (21.0-32.0); CREATININE 0.7 mg/dL (0.55-1.02); Calcium 8.8 mg/dL (8.5-10.1); Chloride 97 mmol/L (98-107); Estimated GFR 91.26 (mL/min/1.73m2); Ferritin 370 ng/mL (8-252); Glucose 95 mg/dL (74-106); Sodium 130 mmol/L (136-145); Total Protein 8.5 g/dL (6.4-8.2); Vitamin B12 395 pg/mL (193-986)
[2023-04-12 10:07] LABS: IgA 427 mg/dL (85-499); IgG 1787 mg/dL (610-1616); IgM 78 mg/dL (35-242); Lambda Free Light Chain 1.51 mg/dL (0.57-2.63)
[2023-04-12 14:54] LABS: Albumin 53.7 % (55.8-66.1); Albumin g/dL 4.4 g/dL (3.6-5.2); Total Protein 8.2 g/dL (6.3-8.2)
== END 2023-04-11 05:12 | disposition home or self-care (01) ==
PROVIDERS: PCP Family Medicine; Visit Provider Internal Medicine Hematology & Oncology
DX: D50.9 Iron deficiency anemia, unspecified (principal)
CPT/HCPCS: 36415; 80053; 82784; 82607; 82728; 83540; 83550; 83883; 84165; 85025

== ENCOUNTER 2023-05-09 05:11 | Outpatient (CLI) | payer MEDICARE, BC, SELFPAY ==
[2023-05-09 13:27] LABS: Abs Immature Grans 0.01 10^3/uL (0.0-0.06); Absolute Basophil Count 0.02 10^3/uL (0.0-0.2); Absolute Lymphocyte Count 1.47 10^3/uL (1.2-3.4); Absolute Monocyte Count 0.27 10^3/uL (0.1-0.8); Absolute Neutrophil Count 1.55 10^3/uL (1.2-6.7); Basophils % 0.6; Eosinophils % 2.9; HCT 36.6 % (36.0-46.0); HGB 13.1 g/dL (11.2-15.7); Immature Grans % 0.3; MCH 35.4 pg (27.0-33.0); MCHC 35.8 % (32.0-36.0); MCV 99 fL (80-95); MPV 8.7 fL (8.0-11.0); Monocytes % 7.9; Neutrophils % 45.3; Platelet Count 171 10^3/uL (130-400); RDW 12.5 % (11.7-14.6); RDW-SD 45.4 fL; WBC 3.42 10^3/uL (4.4-10.8)
[2023-05-09 14:25] LABS: ALT 32 U/L (14-59); AST 28 U/L (15-37); Albumin 3.9 g/dL (3.4-5.0); Alkaline Phosphatase 59 U/L (46-116); Anion Gap 6.2 mmol/L (3-11); BUN 12 mg/dL (7-18); Bilirubin, Total 0.4 mg/dL (0.2-1.0); CO2 29.8 mmol/L (21.0-32.0); CREATININE 0.6 mg/dL (0.55-1.02); Calcium 8.6 mg/dL (8.5-10.1); Chloride 97 mmol/L (98-107); Estimated GFR 94.72 (mL/min/1.73m2); Ferritin 265 ng/mL (8-252); Glucose 94 mg/dL (74-106); Potassium 3.9 mmol/L (3.5-5.1); Sodium 133 mmol/L (136-145); Total Protein 8.6 g/dL (6.4-8.2); Vitamin B12 298 pg/mL (193-986)
[2023-05-09 15:16] LABS: Iron 67 ug/dL (50-170); Total Iron Binding Capacity 357 ug/dL (250-450); Transferrin Sat 19 % (15-50)
[2023-05-10 09:39] LABS: IgA 433 mg/dL (85-499); IgG 1798 mg/dL (610-1616); IgM 71 mg/dL (35-242); Kappa Free Light Chain 3.27 mg/dL (0.33-1.94); Lambda Free Light Chain 1.56 mg/dL (0.57-2.63)
[2023-05-10 13:10] LABS: Albumin 55.3 % (55.8-66.1); Albumin g/dL 4.6 g/dL (3.6-5.2); Total Protein 8.3 g/dL (6.3-8.2)
== END 2023-05-09 05:12 | disposition home or self-care (01) ==
LOC: LBO 05:11
PROVIDERS: PCP Family Medicine; Visit Provider Internal Medicine Hematology & Oncology
DX: D50.9 Iron deficiency anemia, unspecified (principal)
CPT/HCPCS: 36415; 80053; 82784; 82607; 82728; 83540; 83550; 83883; 84165; 85025

== ENCOUNTER 2023-05-13 14:13 | Inpatient (IN) | payer MEDICARE, BC, SELFPAY ==
[2023-05-13] VITALS (20 sets, daily range): BP systolic 112–170; BP diastolic 49–104; PULSE 65–84; RESP 16–18; TEMP 36.7–37.6; O2SAT 92–100
--- NOTE | 2023-05-13 | DI.RAD_ITS ---
Exam(s) XR PORTABLE CHEST AP EXAM: XR PORTABLE CHEST AP CLINICAL HISTORY: assess for NG in stomach TECHNIQUE: 2D digital imaging was performed. COMPARISON: CR,XR XR PORTABLE CHEST AP from 07/29/2022 FINDINGS: Nasogastric tube has been inserted. The tip lies in the fundus of the stomach. LUNGS: Clear. No pleural abnormality seen. HEART: Normal size. AORTA: Normal diameter. BONES: Scoliosis and degenerative changes. Soft tissues: Residual contrast in the renal collecting systems related to prior CT. IMPRESSION: Tip of nasogastric tube projects in gastric fundus. DATA REPOSITORY: RADIATION DOSE DELIVERED:
[2023-05-13] MEDS: Normal Saline 1,000 ML 1000 ML IV (14:38)
[2023-05-13] MEDS: Ondansetron 4 MG/2 ML VIAL IVP (14:39)
[2023-05-13 14:40] LABS: Abs Immature Grans 0.03 10^3/uL (0.0-0.06); Absolute Basophil Count 0.03 10^3/uL (0.0-0.2); Absolute Lymphocyte Count 0.86 10^3/uL (1.2-3.4); Absolute Neutrophil Count 6.31 10^3/uL (1.2-6.7); Basophils % 0.4; HCT 42.2 % (36.0-46.0); HGB 15.5 g/dL (11.2-15.7); Immature Grans % 0.4; Lymphocytes % 11.6; MCH 35.1 pg (27.0-33.0); MCHC 36.7 % (32.0-36.0); MCV 96 fL (80-95); MPV 9.1 fL (8.0-11.0); Monocytes % 2.7; Neutrophils % 84.9; Platelet Count 202 10^3/uL (130-400); RBC 4.41 10^6/uL (3.93-5.22); RDW 12.1 % (11.7-14.6); RDW-SD 42.4 fL; WBC 7.43 10^3/uL (4.4-10.8)
[2023-05-13] MEDS: Normal Saline Flush 10 ML SYR IVP ×2 (14:40→20:37)
--- NOTE | 2023-05-13 14:44 | ED.GENADUL_ITS ---
HPI General Mode of arrival: ambulatory . Date/Time Provider Initiated Documentation: 05/13/23 14:19 . Limitations to Documentation: no limitations . Information obtained by: patient . History of Present Illness 72 year old F presents to the emergency department with the chief complaint of Abdominal pain, described as severe, with intensity rated at 8. Quality is described as aching and sharp, and is localized to the abdomen. Patient reports no radiation. Patient started experiencing this day(s) (3) and it has been constant. No relieving factors improve symptom(s), No exacerbating factors reported . Patient notes nausea/vomiting. Patient did receive the following treatments prior to arrival, NSAID and Aspirin Related Data Home Medications Medication Instructions Recorded Confirmed aspirin 81 mg chewable tablet 81 mg PO DAILY 08/19/14 05/13/23 (Aspirin Low-Strength) valacyclovir 500 mg tablet 500 mg PO BID #60 tabs 05/25/18 05/13/23 lenalidomide 5 mg capsule 5 mg PO DAILY 02/21/19 05/13/23 (Revlimid) omeprazole 40 mg capsule,delayed 40 mg PO DAILY PRN #90 tab-caps 02/21/19 05/13/23 release acetaminophen 500 mg tablet 1,000 mg (2 x 500 mg) PO Q8H PRN 08/02/22 05/13/23 PRN #60 tabs gabapentin 300 mg capsule 300 mg PO TID #270 caps 08/20/22 05/13/23 polyethylene glycol 3350 17 8.5 g PO HS #0 grams 11/13/22 05/13/23 gram/dose oral powder (Miralax) buprenorphine HCl 150 mcg buccal 150 mcg buccal Q12H #60 ea 02/02/23 05/13/23 film nystatin 100,000 unit/gram topical 1 applic topical BID #30 grams 03/02/23 05/13/23 cream triamcinolone acetonide 0.1 % 1 applic topical BID #30 grams 03/02/23 05/13/23 topical cream acetaminophen 325 mg tablet 325 mg PO ONCE PRN 04/05/23 05/13/23 ibuprofen 200 mg tablet 200 mg PO Q6H PRN 04/05/23 05/13/23 Previous Rx's Medication Instructions Recorded valacyclovir 500 mg tablet 500 mg PO BID #60 tabs 05/25/18 acetaminophen 500 mg tablet 1,000 mg (2 x 500 mg) PO Q8H PRN 08/02/22 PRN #60 tabs gabapentin 300 mg capsule 300 mg PO TID #270 caps 08/20/22 polyethylene glycol 3350 17 8.5 g PO HS #0 grams 11/13/22 gram/dose oral powder (Miralax) buprenorphine HCl 150 mcg buccal 150 mcg buccal Q12H #60 ea 02/02/23 film nystatin 100,000 unit/gram topical 1 applic topical BID #30 grams 03/02/23 cream triamcinolone acetonide 0.1 % 1 applic topical BID #30 grams 03/02/23 topical cream Allergies Allergy/AdvReac Type Severity Reaction Status Date / Time iodine Allergy Intermediate rashes Verified 05/13/23 14:28 DUST Allergy Unknown sneezing Uncoded 05/13/23 14:28 MOLD AND SMUT Allergy Unknown respiratory Uncoded 05/13/23 14:28 General Stated Complaint: Abd Prob RICKI: 3 Review of Systems Constitutional Constitutional: Reports fatigue, Denies fever(s) and Denies weakness Cardiovascular Cardiovascular: Denies chest pain and Denies dyspnea Respiratory Respiratory: Denies cough and Denies dyspnea Gastrointestinal Gastrointestinal: Reports abdominal pain, Denies coffee ground emesis, Reports constipation (History of, last bowel movement 7 AM), Denies diarrhea, Reports nausea, Reports vomiting and Denies hematemesis Genitourinary Genitourinary: Denies dysuria Musculoskeletal Musculoskeletal: Denies back pain Integumentary/Breasts Skin/Breast: Denies rash Neurologic Neurologic: Denies weakness Endocrine Endocrine: Reports fatigue Hematologic/Lymphatic Hematologic/Lymphatic: Denies easy bleeding and Denies easy bruising Exam Const General: cooperative and no acute distress Orientation: alert, awake and oriented x3 HENMT Head: normal to inspection, normocephalic and atraumatic Mouth: moist mucous membranes abnormal (Dry) Eyes Conjunctivae: conjunctivae normal Neck Neck: normal visual inspection, trachea midline and supple Resp Effort & Inspection: normal respiratory effort and able to speak in complete sentences Auscultation: clear to auscultation bilaterally Cardio Rate: regular rate Rhythm: regular rhythm GI Inspection: normal to inspection Palpation: soft, not firm, no guarding, not rigid and tender in the LLQ, in the RLQ, in the LUQ and in the RUQ Auscultation: other (Decreased bowel sounds upper quadrants, absent lower quadrants.) Back/Spine/Pelvis Back: no CVA tenderness and No back tenderness Skin General skin exam: no rashes or lesions noted Neuro General: patient alert, patient awake, moves all extremities and no focal motor deficits Cognition: normal cognition Speech: speech normal Sensory Exam: no sensory deficits noted Extrem General: normal to inspection, full ROM and no pedal edema Psych Appearance: grossly normal Mental Status: mental status grossly normal Course Vital Signs Vital signs: Vital Signs Temperature 36.7 C 05/13/23 14:19 Pulse 65 05/13/23 14:19 Respiratory Rate 16 05/13/23 14:19 Blood Pressure 155/104 H 05/13/23 14:19 Pulse Oximetry 100 05/13/23 14:19 Temperature 36.7 C 05/13/23 14:19 Temperature Source Temporal Artery Scan 05/13/23 14:19 Pulse 65 05/13/23 14:19 Respiratory Rate 16 05/13/23 14:19 Respiratory Effort Normal, Non-Labored 05/13/23 14:23 Blood Pressure 155/104 H 05/13/23 14:19 Pulse Oximetry 100 05/13/23 14:19 End Tidal Co2 10 05/13/23 14:19 Lab/Test Results Lab/Test Results: Laboratory Tests Range/Units 05/13/23 14:30 WBC (4.4-10.8) 10^3/uL 7.43 RBC (3.93-5.22) 10^6/uL 4.41 Hgb (11.2-15.7) g/dL 15.5 Hct (36.0-46.0) % 42.2 MCV (80-95) fL 96 H MCH (27.0-33.0) pg 35.1 H MCHC (32.0-36.0) % 36.7 H RDW (11.7-14.6) % 12.1 Plt Count (130-400) 10^3/uL 202 MPV (8.0-11.0) fL 9.1 Immature Gran % 0.4 Neutrophils % 84.9 Lymphocytes % 11.6 Monocytes % 2.7 Eosinophils % 0.0 Basophils % 0.4 Nucleated RBC % (0.0-0.3) % 0.0 Absolute Neutrophils (1.2-6.7) 10^3/uL 6.31 Absolute Lymphocytes (1.2-3.4) 10^3/uL 0.86 L Absolute Monocytes (0.1-0.8) 10^3/uL 0.20 Absolute Eosinophils (0.0-0.7) 10^3/uL 0.00 Absolute Basophils (0.0-0.2) 10^3/uL 0.03 Medical Decision Making This is a 72-year-old female with a past medical history of GERD, history of multiple myeloma with bony metastasis, hypertension, prior chronic narcotic dependence which caused opioid-induced constipation, patient has been taken off of all narcotic medication and is now on buprenorphine. She does report history of cholecystectomy and hysterectomy. Reports multiple small bowel obstructions which never required surgical intervention. Plan to obtain IV access, give IV fluids, patient is requesting Tylenol, will give this IV as well. Certainly concern for small bowel obstruction, will have low threshold to give IV narcotic if needed. Patient does state that she had a bowel movement this morning but has not been able to have any food for the last couple of days. Reports increased abdominal pain, nausea, vomiting over the past 3 days. Decreased upper bowel sounds, very diminished or absent lower bowel sounds. Plan to obtain routine screening laboratory values including lactate. Once labs have resulted and kidney function has been assessed, will obtain CT imaging with IV contrast if able otherwise we will obtain without. Patient reports moderate relief with IV Tylenol. White blood cell count of 7.43 hemoglobin 15.4 hematocrit 42.2 platelet count 202. Sodium 132 potassium 3.9 anion gap 12.4 creatinine 0.9 with a GFR of 67.50. Will obtain CT imaging of the abdomen and pelvis with IV contrast. Glucose 178 calcium 10.6 total bili 0.9 AST 54 ALT 39 alk phosphatase 71 lipase 32. Urinalysis trace ketones trace blood trace leuk esterase. Negative nitrates. 0-2 red cells, 3-5 white cells. Culture indicated. Lactate pending. Case signed out to my colleague POLLY Cintron pending CT imaging of abdomen and pelvis, lactate, reassessment and final disposition. All questions were answered. Agree and understand treatment plan. Will call if any changes or concerns. Medical Records Medical records reviewed: Yes I reviewed the patient's medical records. Lab Data Lab results reviewed: Yes I reviewed the patient's lab results. Labs: 05/13/23 15:00 Urine - Reflex from Ua Urine Culture - Pending Laboratory Tests Range/Units 05/13/23 05/13/23 14:30 15:00 WBC (4.4-10.8) 10^3/uL 7.43 RBC (3.93-5.22) 10^6/uL 4.41 Hgb (11.2-15.7) g/dL 15.5 Hct (36.0-46.0) % 42.2 MCV (80-95) fL 96 H MCH (27.0-33.0) pg 35.1 H MCHC (32.0-36.0) % 36.7 H RDW (11.7-14.6) % 12.1 Plt Count (130-400) 10^3/uL 202 MPV (8.0-11.0) fL 9.1 Immature Gran % 0.4 Neutrophils % 84.9 Lymphocytes % 11.6 Monocytes % 2.7 Eosinophils % 0.0 Basophils % 0.4 Nucleated RBC % (0.0-0.3) % 0.0 Absolute Neutrophils (1.2-6.7) 10^3/uL 6.31 Absolute Lymphocytes (1.2-3.4) 10^3/uL 0.86 L Absolute Monocytes (0.1-0.8) 10^3/uL 0.20 Absolute Eosinophils (0.0-0.7) 10^3/uL 0.00 Absolute Basophils (0.0-0.2) 10^3/uL 0.03 Sodium (136-145) mmol/L 132 L Potassium (3.5-5.1) mmol/L 3.9 Chloride (98-107) mmol/L 91 L Carbon Dioxide (21.0-32.0) mmol/L 28.6 Anion Gap (3-11) mmol/L 12.4 H BUN (7-18) mg/dL 14 Creatinine (0.55-1.02) mg/dL 0.9 Est GFR (CKD-EPI 2020) (mL/min/1.73m2) 67.50 Glucose (74-106) mg/dL 178 H Calcium (8.5-10.1) mg/dL 10.6 H Total Bilirubin (0.2-1.0) mg/dL 0.9 AST (15-37) U/L 54 H ALT (14-59) U/L 39 Alkaline Phosphatase (46-116) U/L 71 Total Protein (6.4-8.2) g/dL 10.1 H Albumin (3.4-5.0) g/dL 4.7 Lipase (16-77) U/L 32 Urine Color (Yellow) Yellow Urine Clarity (Clear) Clear Urine pH (5-8) 7.0 Ur Specific [place] (1.005-1.025) 1.020 Urine Protein (Negative) mg/dL 30 H Urine Ketones (Negative) mg/dL Trace H Urine Blood (Negative) Trace-intact H Urine Nitrite (Negative) Negative Urine Bilirubin (Negative) Negative Urine Urobilinogen (Up to 0.2) mg/dL 0.2 Ur Leukocyte Esterase (Negative) Trace H Urine RBC (0-2) HPF 0-2 Urine WBC (0-5) HPF 3-5 Ur Epithelial Cells (Negative) HPF Few Urine Crystals (Negative) HPF Negative Urine Bacteria (Negative) HPF Rare Urine Casts (Negative) LPF 5-10 Hyaline Urine Mucus (Negative) Trace Ur Culture Indicated? Yes Urine Glucose (Negative) mg/dL Negative Quality:SDOH Health Related Social Needs: No Data to Display PFSH All Active Problems (Updated 05/13/23 @ 15:36 by POLLY Schulte) Abdominal pain (Acute) Insomnia (Acute) Right hand paresthesia (Acute) HTN (hypertension) (Chronic) Chronic narcotic dependence (Chronic) changed from morphine to buprenorphine Therapeutic opioid induced constipation (Chronic) Pain from bone metastases (Chronic) maintained on morphine ER; managed by [facility] heme onc. Now on buprenorphine. Radiation vulvitis (Chronic) Onychomycosis (Chronic) GERD (gastroesophageal reflux disease) (Chronic) Medical History History of radiation therapy Screening for malignant neoplasm of colon performed Hx SBO Multiple hospitalizations. [place] to be due to opioid-induced constipation. Resolves with bowel rest. 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 04/2011 Hyst and BSO at [facility] Path= stage A1, Gr 11 Chronic hepatitis B (12/29/16) Multiple myeloma in remission on revlimid Surgical History History of colonoscopy (~10/2022) Hx of cataract surgery Hx of cholecystectomy S/P hysterectomy History of cholecystectomy H/O breast biopsy Right, 1o'clock, 12cm from nipple, US-guided needle core biopsy: negative for malignancy. fibroadipose tissue with assoc hemorrhage. Family History Mother , AGE 84 No problems noted. Father , AGE 92 No problems noted. Sister , AGE 79 No problems noted. Sister No problems noted. Brother , AGE 68 Stomach cancer Brother No problems noted. Brother No problems noted. Brother No problems noted. Brother No problems noted. Son No problems noted. 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 Pets and animals: No Sexually active: No Do you think of yourself as: straight/heterosexual Current gender identity: female What is your relationship status?: How often do you talk on the phone with friends or family?: three or more times per week How often do you get together with friends or relatives?: decline to answer How often do you attend amish or jew services?: decline to answer Do you belong to any clubs or organized social groups?: no Panel score (0-1 are the most socially isolated patients): 2 What type of physical activity do you participate in: walking and running Duration: 30-45 minutes/day Frequency: 3-4 times per week Chrsitianne/Jehovah'S Witness: Baptist Special christianne needs: No Seatbelt use: always Drive intox or ride w/intox drivers license examiner: Yes Drive intox or w/intox drivers license examiner: rarely Working smoke detector in home: Yes Carbon monox detector in home: Yes Firearms in home: Yes Firearms unloaded and locked: Yes Do you feel safe at home: Yes Do you feel safe in your relationship?: Yes Victim of physical abuse: No Victim of emotional abuse: No Victim of sexual abuse: No Would you like helpful sources: No Discharge Plan Discharge Details Chief Complaint: Abd Prob Clinical Impression: Abdominal pain Primary Care Provider: Reyna Abrams ED Provider: Jasen Negron Home Meds and New Rx's Prescriptions: No Action gabapentin 300 mg capsule 300 mg PO TID Qty: 270 3RF Hold Instructions: Changed by Provider lenalidomide [Revlimid] 5 mg capsule 5 mg PO DAILY ibuprofen 200 mg tablet 200 mg PO Q6H PRN acetaminophen 325 mg tablet 325 mg PO ONCE PRN nystatin 100,000 unit/gram cream 1 applic TP BID Qty: 30 1RF Patient Comments: not taking per pt triamcinolone acetonide 0.1 % cream 1 applic TP BID Qty: 30 1RF Patient Comments: pt not sure if taking omeprazole 40 mg capsule,delayed release(DR/EC) 40 mg PO DAILY PRNQty: 90 Patient Comments: 04/09/16 takes prn. mdh buprenorphine HCl 150 mcg film 150 mcg buccal Q12H Qty: 60 3RF Patient Comments: pt not sure if still taking aspirin [Aspirin Low-Strength] 81 MG tablet,chewable 81 mg PO DAILY Patient Comments: 09-21-17 pt reports that she takes this med every other day. hb polyethylene glycol 3350 [Miralax] 17 gram/dose powder 8.5 g PO HS Qty: 0 0RF Rx Instructions: take a dose at bedtime if no BM during the day valacyclovir 500 mg tablet 500 mg PO BID Qty: 60 3RF acetaminophen 500 mg Tablet 1,000 mg PO Q8H PRN PRNQty: 60 0RF Hold Instructions: Changed by Provider
[2023-05-13 15:15] LABS: Bilirubin Negative (Negative); Blood Trace-intact (Negative); Clarity Clear (Clear); Glucose Negative (Negative); Ketones Trace mg/dL (Negative); Leukocyte Esterase Trace (Negative); Nitrite Negative (Negative); Urobilinogen 0.2 mg/dL (Up to 0.2)
[2023-05-13 15:20] LABS: ALT 39 U/L (14-59); AST 54 U/L (15-37); Albumin 4.7 g/dL (3.4-5.0); Alkaline Phosphatase 71 U/L (46-116); Anion Gap 12.4 mmol/L (3-11); BUN 14 mg/dL (7-18); Bilirubin, Total 0.9 mg/dL (0.2-1.0); CO2 28.6 mmol/L (21.0-32.0); CREATININE 0.9 mg/dL (0.55-1.02); Calcium 10.6 mg/dL (8.5-10.1); Chloride 91 mmol/L (98-107); Glucose 178 mg/dL (74-106); Lipase 32 U/L (16-77); Potassium 3.9 mmol/L (3.5-5.1); Sodium 132 mmol/L (136-145); Total Protein 10.1 g/dL (6.4-8.2)
[2023-05-13 15:27] LABS: Bacteria Rare HPF (Negative); C & S Indicated? Yes; Casts 5-10 Hyaline LPF (Negative); Crystals Negative HPF (Negative); Epithelial Cells Few HPF (Negative); Mucus Trace (Negative); RBC 0-2 HPF (0-2)
[2023-05-13 15:54] LABS: Lactate 4.1 MMOL/l (0.9-1.7)
--- NOTE | 2023-05-13 16:39 | DI.CT_ITS ---
Exam(s) CT ABDOMEN PELVIS W EXAM: CT ABDOMEN PELVIS W CLINICAL HISTORY: Pain, hx of SBO. TECHNIQUE: Imaging Protocol: Axial computed tomography images with coronal and sagittal reformatted images were created and reviewed CONTRAST MATERIAL: Intravenous: Omnipaque 350 Contrast volume:100 ml Oral: yes / no COMPARISON: CT CT ABDOMEN PELVIS WO from 07/29/[address] ABDOMEN PELVIS WO from 08/14/[address] ABDOMEN PELVIS WO from 11/11/2022 FINDINGS: ABDOMEN and PELVIS: Lung Bases: No acute findings. Liver: Normal density. No measurable mass. Gallbladder and biliary tract: Status post cholecystectomy. Stable mild dilatation of the common corie e duct and intrahepatic ducts.. Pancreas: Normal density. No abnormal calcifications or inflammatory process. No evidence of mass. Spleen: Normal. Kidneys: Normal size, contour and axis. No radiodense stones. No obstructive uropathy. No suspicious masses seen. Adrenal glands: No masses seen. Vasculature: Abdominal aorta non-dilated. Soft tissues: Unremarkable. Bladder: No gross wall thickening. No calculi.No focal mass. Bowel: Wall thickening of the antrum of the stomach. Moderate dilatation of small bowel loops down t o the low pelvis where there is a transition point in the right lower quadrant. There is some fecule nt material within small bowel loops just proximal to the area transition point.. Appendix normal. Peritoneal cavity: Trace ascites. No focal collection or mesenteric inflammatory response. Bones: Scoliosis and degenerative changes. Mild L5 compression fracture, stable. No change in area of sclerosis in the left ilium. Reproductive organs: Status post hysterectomy. Lymph nodes: Unremarkable. IMPRESSION:: Small-bowel obstruction with transition point in right lower quadrant. No pneumatosis. Findings discussed with ER provider. RADIATION DOSE DELIVERED: 634.63mGy.cm Total DLP DATA REPOSITORY: All CT scans at this facility are submitted to the National Radiology Data Registry (NRDR) Dose Index Registry (DIR) with the [employer] (ACR). RADIATION OPTIMIZATION: All CT scans at this facility use at least one of these dose optimization te chniques: automated exposure control; mA and/or kV adjustment per patient size (includes targeted exa ms where dose is matched to clinical indication); or iterative reconstruction.
[2023-05-13] MEDS: Normal Saline - Diluent 50 ML VIAL IJ (16:43)
[2023-05-13] MEDS: Omnipaque 350 MG/ML 100 ML BTL IJ (16:45)
[2023-05-13] MEDS: Lactated Ringers 1,000 ML 125 ML IV (18:16)
--- NOTE | 2023-05-13 19:11 | SCONE_ITS ---
Date of service: 05/13/23 Time of Service: 18:00 Assessment and Plan Assessment and plan (1) Small bowel obstruction: Status: Acute Assessment and plan: 72 yo woman with another mechanical SBO. HD stable and without peritoneal signs 3-4 days into the evolution of this. It can be assumed her bowel is not ischemic considering the timeline and she likely just needs hydration, resuscitation and decompression therapy. PLAN: Place NGT NPO with NGT - meds and ice around NGT ok. NG can be clamped 1 hour for necessary oral meds. IVF + replace NG losses analgesia prn DVT prophylaxis History of Present Illness Narrative: Called by ED provider to consult/admit patient known to us. History of mechanical SBO in the past that have resolved/responded to non- operative management multiple times. Reports that once again, patient comes in after 3-4 days of abdominal pain and discomfort. CT shows SBO in RLQ. Surgical history of multiple open procedures as well as radiation in the pelvis. Reportedly has chronic pain syndrome related to metastatic bone cancer and use of opiates for this problem considered to contribute to her presentation. [facility] All Active Problems (Updated 05/13/23 @ 17:42 by POLLY Richey) Small bowel obstruction (Acute) Abdominal pain (Acute) Insomnia (Acute) Right hand paresthesia (Acute) HTN (hypertension) (Chronic) Chronic narcotic dependence (Chronic) changed from morphine to buprenorphine Therapeutic opioid induced constipation (Chronic) Pain from bone metastases (Chronic) maintained on morphine ER; managed by [facility] heme onc. Now on buprenorphine. Radiation vulvitis (Chronic) Onychomycosis (Chronic) GERD (gastroesophageal reflux disease) (Chronic) Medical History History of radiation therapy Screening for malignant neoplasm of colon performed Hx SBO Multiple hospitalizations. [place] to be due to opioid-induced constipation. Resolves with bowel rest. 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 04/2011 Hyst and BSO at [facility] Path= stage A1, Gr 11 Chronic hepatitis B (12/29/16) Multiple myeloma in remission on revlimid Surgical History History of colonoscopy (~10/2022) Hx of cataract surgery Hx of cholecystectomy S/P hysterectomy History of cholecystectomy H/O breast biopsy Right, 1o'clock, 12cm from nipple, US-guided needle core biopsy: negative for malignancy. fibroadipose tissue with assoc hemorrhage. Family History Mother , AGE 84 No problems noted. Father , AGE 92 No problems noted. Sister , AGE 79 No problems noted. Sister No problems noted. Brother , AGE 68 Stomach cancer Brother No problems noted. Brother No problems noted. Brother No problems noted. Brother No problems noted. Son No problems noted. 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 and animals: No Sexually active: No Do you think of yourself as: straight/heterosexual Current gender identity: female What is your relationship status?: How often do you talk on the phone with friends or family?: three or more times per week How often do you get together with friends or relatives?: decline to answer How often do you attend nondenominational or jain services?: decline to answer Do you belong to any clubs or organized social groups?: no Panel score (0-1 are the most socially isolated patients): 2 What type of physical activity do you participate in: walking and running Duration: 30-45 minutes/day Frequency: 3-4 times per week Christianne/Restorationism: Jain Special christianne needs: No Seatbelt use: always Drive intox or ride w/intox experienced truck driver: Yes Drive intox or w/intox experienced truck driver: rarely Working smoke detector in home: Yes Carbon monox detector in home: Yes Firearms in home: Yes Firearms unloaded and locked: Yes Do you feel safe at home: Yes Do you feel safe in your relationship?: Yes Victim of physical abuse: No Victim of emotional abuse: No Victim of sexual abuse: No Would you like helpful sources: No Exam Narrative Exam Narrative: Per ER provider: Gen: Not toxic, comfortable and interative Neuro: AxOx3 Abdomen: Soft, distended, no peritoneal signs or any significant tenderness. Results Last Vital Signs Temp 98.1 F 05/13/23 14:19 Pulse 65 05/13/23 14:19 Resp 16 05/13/23 14:19 BP 155/104 H 05/13/23 14:19 Pulse Ox 100 05/13/23 14:19 Labs 05/13/23 14:30 05/13/23 14:30 Labs: Laboratory Results - last 24 hr 05/13/23 05/13/23 05/13/23 14:30 15:00 15:35 WBC 7.43 RBC 4.41 Hgb 15.5 Hct 42.2 MCV 96 H MCH 35.1 H MCHC 36.7 H RDW 12.1 Plt Count 202 MPV 9.1 Immature Gran % 0.4 Neutrophils % 84.9 Lymphocytes % 11.6 Monocytes % 2.7 Eosinophils % 0.0 Basophils % 0.4 Nucleated RBC % 0.0 Absolute Neutrophils 6.31 Absolute Lymphocytes 0.86 L Absolute Monocytes 0.20 Absolute Eosinophils 0.00 Absolute Basophils 0.03 VBG Lactate 4.1 H* Sodium 132 L Potassium 3.9 Chloride 91 L Carbon Dioxide 28.6 Anion Gap 12.4 H BUN 14 Creatinine 0.9 Est GFR (CKD-EPI 2020) 67.50 Glucose 178 H Calcium 10.6 H Total Bilirubin 0.9 AST 54 H ALT 39 Alkaline Phosphatase 71 Total Protein 10.1 H Albumin 4.7 Lipase 32 Urine Color Yellow Urine Clarity Clear Urine pH 7.0 Ur Specific [place] 1.020 Urine Protein 30 H Urine Ketones Trace H Urine Blood Trace-intact H Urine Nitrite Negative Urine Bilirubin Negative Urine Urobilinogen 0.2 Ur Leukocyte Esterase Trace H Urine RBC 0-2 Urine WBC 3-5 Ur Epithelial Cells Few Urine Crystals Negative Urine Bacteria Rare Urine Casts 5-10 Hyaline Urine Mucus Trace Ur Culture Indicated? Yes Urine Glucose Negative
[2023-05-13] MEDS: Enoxaparin 40 MG/0.4 ML SYR SC (20:37)
[2023-05-13] MEDS: MORPHine 2 MG/ML SYR IVP (20:37)
--- NOTE | 2023-05-13 22:21 | DI.VRAD_ITS ---
PROCEDURE INFORMATION: Exam: XR Chest Exam date and time: 05/13/2023 9:57 PM Age: 72 years old Clinical indication: Device placement; Ng tube; Patient HX: Assess for ng in stomach TECHNIQUE: Imaging protocol: Radiologic exam of the chest. Views: 1 view. COMPARISON: CR XR PORTABLE CHEST AP 07/29/2022 2:14 AM FINDINGS: Tubes, catheters and devices: NG tube enters the stomach. Tip is in the gastric fundal region. Lungs: Lung bases are clear. Pleural spaces: Unremarkable. No pleural effusion. No pneumothorax. Heart/Mediastinum: Unremarkable. No cardiomegaly. Bones/joints: Thoracolumbar dextroscoliosis. IMPRESSION: NG tube with distal tip in the region of the gastric fundus. Dictated and Authenticated by: Ed Calvillo MD. Ordering:YARELI Cisneros MD
[2023-05-13] MEDS: ACETAMINOPHEN 1,000 MG/100 ML BTL 400 MG IVPB (22:54)
[2023-05-14] MEDS: Lactated Ringers 1,000 ML 125 ML IV ×2 (02:07→11:44)
[2023-05-14] MEDS: ACETAMINOPHEN 1,000 MG/100 ML BTL 400 MG IVPB ×4 (03:01→22:30)
[2023-05-14] MEDS: MORPHine 2 MG/ML SYR IVP (05:22)
[2023-05-14] MEDS: Normal Saline Flush 10 ML SYR IVP (05:23)
[2023-05-14 06:51] LABS: Abs Immature Grans 0.01 10^3/uL (0.0-0.06); Absolute Basophil Count 0.02 10^3/uL (0.0-0.2); Absolute Eosinophil Count 0.06 10^3/uL (0.0-0.7); Absolute Lymphocyte Count 1.09 10^3/uL (1.2-3.4); Absolute Monocyte Count 0.27 10^3/uL (0.1-0.8); Absolute Neutrophil Count 1.53 10^3/uL (1.2-6.7); Basophils % 0.7; HGB 12.8 g/dL (11.2-15.7); Immature Grans % 0.3; Lymphocytes % 36.6; MCH 34.9 pg (27.0-33.0); MCHC 36.6 % (32.0-36.0); MCV 95 fL (80-95); MPV 9.1 fL (8.0-11.0); Monocytes % 9.1; Neutrophils % 51.3; Platelet Count 168 10^3/uL (130-400); RBC 3.67 10^6/uL (3.93-5.22); RDW 12.4 % (11.7-14.6); RDW-SD 43.3 fL; WBC 2.98 10^3/uL (4.4-10.8)
[2023-05-14 06:53] LABS: Lactate 1.5 mmol/L (0.6-1.4)
[2023-05-14 07:13] LABS: Anion Gap 9.6 mmol/L (3-11); BUN 20 mg/dL (7-18); CO2 29.4 mmol/L (21.0-32.0); Calcium 9.2 mg/dL (8.5-10.1); Chloride 95 mmol/L (98-107); Estimated GFR 59.49 (mL/min/1.73m2); Glucose 115 mg/dL (74-106); Potassium 3.6 mmol/L (3.5-5.1); Sodium 134 mmol/L (136-145)
[2023-05-14 07:14] VITALS: BP 134/62; PULSE 76; RESP 16; TEMP 36.7; O2SAT 95
[2023-05-14] MEDS: Docusate Sodium 100 MG/10 ML CUP PO ×2 (07:49→19:55)
--- NOTE | 2023-05-14 08:05 | W.PM.PROGNOT ---
Date of Service Date of service: 05/14/23 Time of Service: 10:00 Assessment and Plan Assessment and plan (1) Small bowel obstruction: Status: Acute Assessment and plan: 72-year-old woman with a small bowel obstruction that seems to be resolving clinically. 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 She is hemodynamically stable. Her abdominal exam is pretty benign although just a tiny bit distended still. Along with having bowel function now her NG tube is stopped putting out. This is all promising but she still has a little bit of subjective cramping. Overall plan: Gastrografin down the NG tube and clamp it. Will check for residuals in 6 hours-if less than 250 cc and will pull the tube and start her on clear liquids If she gets nauseated again we can put it back to suction and see where the oral contrast is going. Replace NG tube losses with IV fluid Hopeful discharge tomorrow Subjective Subjective Interval history since last seen: At the bedside the patient endorses feeling a lot better. She has had a bowel movement and passed much gas this morning. She says this is the fifth time this has happened. She has needed to tube every time. The NG tube has stopped having output as of this morning. The pain she was having yesterday is mostly gone but she says a small amount is still there. Exam Narrative Exam Narrative: General: Nontoxic, comfortable and interactive Neuro: Alert and oriented x 3 Psych: Good mood and affect, good insight and understanding NG tube: Scant gastric juice in the tubing at the bedside. (Over a liter out of bilious overnight) Abdomen: Soft, minimally distended, nontender Objective Last Vital Signs Temp 98.1 F 05/14/23 07:14 Pulse 76 05/14/23 07:14 Resp 16 05/14/23 07:14 BP 134/62 05/14/23 07:14 Pulse Ox 95 05/14/23 07:14 Laboratory Results - last 24 hr 05/13/23 05/13/23 05/13/23 14:30 15:00 15:35 WBC 7.43 RBC 4.41 Hgb 15.5 Hct 42.2 MCV 96 H MCH 35.1 H MCHC 36.7 H RDW 12.1 Plt Count 202 MPV 9.1 Immature Gran % 0.4 Neutrophils % 84.9 Lymphocytes % 11.6 Monocytes % 2.7 Eosinophils % 0.0 Basophils % 0.4 Nucleated RBC % 0.0 Absolute Neutrophils 6.31 Absolute Lymphocytes 0.86 L Absolute Monocytes 0.20 Absolute Eosinophils 0.00 Absolute Basophils 0.03 VBG Lactate 4.1 H* Sodium 132 L Potassium 3.9 Chloride 91 L Carbon Dioxide 28.6 Anion Gap 12.4 H BUN 14 Creatinine 0.9 Est GFR (CKD-EPI 2020) 67.50 Glucose 178 H Calcium 10.6 H Total Bilirubin 0.9 AST 54 H ALT 39 Alkaline Phosphatase 71 Total Protein 10.1 H Albumin 4.7 Lipase 32 Urine Color Yellow Urine Clarity Clear Urine pH 7.0 Ur Specific [place] 1.020 Urine Protein 30 H Urine Ketones Trace H Urine Blood Trace-intact H Urine Nitrite Negative Urine Bilirubin Negative Urine Urobilinogen 0.2 Ur Leukocyte Esterase Trace H Urine RBC 0-2 Urine WBC 3-5 Ur Epithelial Cells Few Urine Crystals Negative Urine Bacteria Rare Urine Casts 5-10 Hyaline Urine Mucus Trace Ur Culture Indicated? Yes Urine Glucose Negative 05/14/23 05/14/23 06:14 06:44 WBC 2.98 L RBC 3.67 L Hgb 12.8 D Hct 35.0 L MCV 95 MCH 34.9 H MCHC 36.6 H RDW 12.4 Plt Count 168 MPV 9.1 Immature Gran % 0.3 Neutrophils % 51.3 Lymphocytes % 36.6 Monocytes % 9.1 Eosinophils % 2.0 Basophils % 0.7 Nucleated RBC % 0.0 Absolute Neutrophils 1.53 Absolute Lymphocytes 1.09 L Absolute Monocytes 0.27 Absolute Eosinophils 0.06 Absolute Basophils 0.02 VBG Lactate 1.5 H Sodium 134 L Potassium 3.6 Chloride 95 L Carbon Dioxide 29.4 Anion Gap 9.6 BUN 20 H Creatinine 1.0 Est GFR (CKD-EPI 2020) 59.49 Glucose 115 H Calcium 9.2 Total Bilirubin AST ALT Alkaline Phosphatase Total Protein Albumin Lipase Urine Color Urine Clarity Urine pH Ur Specific [place] Urine Protein Urine Ketones Urine Blood Urine Nitrite Urine Bilirubin Urine Urobilinogen Ur Leukocyte Esterase Urine RBC Urine WBC Ur Epithelial Cells Urine Crystals Urine Bacteria Urine Casts Urine Mucus Ur Culture Indicated? Urine Glucose Time Spent with Patient Time Spent with Patient: 25-34 minutes Time was spent: preparing to see the patient(eg.review tests), ordering medications,tests, procedures, referring, communicating with other health memory care program director, indepentently interpreting results, counseling the patient and care coordination
[2023-05-14] MEDS: Gabapentin 300 MG CAP PO ×3 (10:55→19:55)
[2023-05-14] MEDS: Aspirin 81 MG CHEW PO (10:55)
[2023-05-14] MEDS: Gastrografin 120 ML BTL NG (11:04)
--- NOTE | 2023-05-14 14:36 | INITIAL_ITS ---
Date of service: 05/14/23 Time of Service: 14:37 Care Management Initial Assmt Initial Assessment REASON FOR HOSPITALIZATION:: SBO-recurrent bowel obstruction in the setting of multiple surgeries and likely adhesion disease PREVIOUS FUNCTIONAL STATUS/SOCIAL/FAMILY SUPPORTS:: Reyna lives in [place] with her , Mick. She has one son who lives in [place]. Reyna is independent at baseline in the community, but is disabled due to multiple myeloma. CURRENT FUNCTIONAL STATUS:: Lying in bed, reports feeling much better. CM following. ADVANCE DIRECTIVES:: On file. Mick [facility] Has patient been provided with info about the portal/API?: Yes Did the patient sign up for the portal?: No CODE STATUS:: Full Code INSURANCE COVERAGE / FINANCIAL ISSUES:: Medicare PRIMARY CARE PHYSICIAN:: Reyna Abrams POTENTIAL DISCHARGE NEEDS:: Follow up appointments. PATIENT/FAMILY EDUCATION NEEDS:: Review discharge instructions, discuss Ask Me Three. ANTICIPATED BARRIERS TO DISCHARGE:: None identified. TRANSPORTATION:: Via private vehicle with family. PLAN:: Per MD, obstruction seems to be resolving clinically, awaiting NG tube removal and diet advancements. Anticipate discharge home with no services, CM following. PFSH All Active Problems (Updated 05/13/23 @ 19:56 by SUHA BIANCHI) Small bowel obstruction (Acute) Abdominal pain (Acute) Insomnia (Acute) Right hand paresthesia (Acute) HTN (hypertension) (Chronic) Chronic narcotic dependence (Chronic) changed from morphine to buprenorphine Therapeutic opioid induced constipation (Chronic) Pain from bone metastases (Chronic) maintained on morphine ER; managed by [facility] heme onc. Now on buprenorphine. Radiation vulvitis (Chronic) Onychomycosis (Chronic) GERD (gastroesophageal reflux disease) (Chronic) Medical History History of radiation therapy Screening for malignant neoplasm of colon performed Hx SBO Multiple hospitalizations. [place] to be due to opioid-induced constipation. Resolves with bowel rest. 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 04/2011 Hyst and BSO at [facility] Path= stage A1, Gr 11 Chronic hepatitis B (12/29/16) Multiple myeloma in remission on revlimid Surgical History History of colonoscopy (~10/2022) Hx of cataract surgery Hx of cholecystectomy S/P hysterectomy History of cholecystectomy H/O breast biopsy Right, 1o'clock, 12cm from nipple, US-guided needle core biopsy: negative for malignancy. fibroadipose tissue with assoc hemorrhage. Family History Mother , AGE 84 No problems noted. Father , AGE 92 No problems noted. Sister , AGE 79 No problems noted. Sister No problems noted. Brother , AGE 68 Stomach cancer Brother No problems noted. Brother No problems noted. Brother No problems noted. Brother No problems noted. Son No problems noted. 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 Pets and animals: No Sexually active: No Do you think of yourself as: straight/heterosexual Current gender identity: female What is your relationship status?: How often do you talk on the phone with friends or family?: three or more times per week How often do you get together with friends or relatives?: decline to answer How often do you attend jain or mandaeism services?: decline to answer Do you belong to any clubs or organized social groups?: no Panel score (0-1 are the most socially isolated patients): 2 What type of physical activity do you participate in: walking and running Duration: 30-45 minutes/day Frequency: 3-4 times per week Christianne/Bahai: Episcopal Special christianne needs: No Seatbelt use: always Drive intox or ride w/intox backhaul driver: Yes Drive intox or w/intox backhaul driver: rarely Working smoke detector in home: Yes Carbon monox detector in home: Yes Firearms in home: Yes Firearms unloaded and locked: Yes Do you feel safe at home: Yes Do you feel safe in your relationship?: Yes Victim of physical abuse: No Victim of emotional abuse: No Victim of sexual abuse: No Would you like helpful sources: No SDOH(Care Management) Screening Will the Patient Participate in the Screening?: Yes Do you worry about having a steady place to live?: yes Problems where you live: no known problems In the past 12 months, have you had to go without electric, gas, oil or water in your home?: no Have you or anyone in your house had to go without enough food to eat?: no Has lack of transportation kept you from medical appointments or from doing things needed for daily living?: no Has anyone in your support network made you feel unsafe for any reason?: no Health Related Social Needs Health related social needs: housing instability, housed, with risk of homelessness(Z59.811)
--- NOTE | 2023-05-14 15:46 | NUR.NOTE ---
Nursing Note: Patient has had frequent moderate, mostly liquid stools throughout the day. This RN saw an episode but patient has reported at least ten occurrences of diarrhea. Patient is otherwise asymptomatic at this time and denies discomfort.
[2023-05-14 16:00] VITALS: BP 145/76; PULSE 77; RESP 16; TEMP 37.3; O2SAT 96
[2023-05-14 19:51] VITALS: BP 147/71; PULSE 89; RESP 18; TEMP 36.7; O2SAT 98
[2023-05-14] MEDS: Enoxaparin 40 MG/0.4 ML SYR SC (19:55)
--- NOTE | 2023-05-15 | DI.RAD_ITS ---
Exam(s) XR ABDOMEN FLAT UPRIGHT EXAM: 2D digital imaging was performed. CLINICAL HISTORY: Assess for transit of gastrograffin to colon/rectm. COMPARISON: CT CT ABDOMEN PELVIS W from 05/13/2023 TECHNIQUE: Supine and uprightSupine and Lateral views of the abdomen were performed. FINDINGS: BOWEL GAS PATTERN: Mildly dilated loops of small bowel in left and central abdomen. Findings appear somewhat improved when compared the previous exam. The colon is unremarkable. No significant quanti ty of stool visible. No free air. CALCIFICATIONS: No urinary tract calcifications. OSSEOUS STRUCTURES: Scoliosis and degenerative changes. Stable appearance of sclerotic lesion in lef t ilium. Visualized portions of chest: Unremarkable. IMPRESSION: Some improvement in small bowel obstruction. No free air. DATA REPOSITORY: RADIATION DOSE DELIVERED:
[2023-05-15] MEDS: MORPHine 2 MG/ML SYR IVP (00:34)
[2023-05-15] MEDS: Lactated Ringers 1,000 ML 125 ML IV ×2 (01:44→05:23)
[2023-05-15] MEDS: ACETAMINOPHEN 1,000 MG/100 ML BTL 400 MG IVPB ×4 (03:28→22:06)
[2023-05-15 07:26] VITALS: BP 138/71; PULSE 73; RESP 20; TEMP 36.5; O2SAT 98
[2023-05-15] MEDS: Gabapentin 300 MG CAP PO ×3 (09:09→19:50)
[2023-05-15] MEDS: Aspirin 81 MG CHEW PO (09:09)
--- NOTE | 2023-05-15 11:06 | PGE_ITS ---
Date of Service Date of service: 05/15/23 Time of Service: 11:06 Assessment and Plan Assessment and plan (1) Small bowel obstruction: Status: Acute Assessment and plan: 72-year-old woman with a resolving small bowel obstruction secondary to mechanical adhesion disease. She is hemodynamically stable. She has a benign abdominal exam. She is having excellent bowel function. There are 2 problems: #1. She is still having some cramping abdominal colic every hour or so. #2. Frequency of recurring small bowel obstructions, transition point in the same location each time. While I am very happy with her abdominal exam and the amount of bowel function she is having, I have some concern about the fact that she is still having some pain. It is not significant pain, but she is NOT symptom-free. With that said, even if she becomes symptom-free in the next 24 hours, it sounds like she is starting to live in fear from these obstructions and it sounds like she has partial obstructions from time to time at her home that resolved without her needing to come to the hospital. As such, I think she is having more frequent obstruction than we realize. Certainly she is going to have some dense adhesion disease within her abdominal cavity as the underlying culprit under almost all likely circumstances. I think her best opportunity for surgical exploration is under the current situation which is resolving obstruction which would render her bowel to be non- dilated to allow laparoscopic/minimally invasive exploration but also recent enough to her obstruction to hopefully show where the transition point likely is in her right lower quadrant. She is traveling to [place] in 3 weeks and is worried she is not going to be able to make the trip or worse, she will have an obstruction while she is on that trip. This is a reasonable fear. Certainly we could do an outpatient elective surgery for exploration, but that places her at risk to have another obstruction between now and then and also gives the bowel enough time to completely normalize making the transition/obstructing area more difficult to find potentially. I am and have a discussion with her and her later today. This is not an emergency surgery and it does not need to be done today on the weekend. I am going to recommend to them that she undergo diagnostic laparoscopy with likely laparoscopic lysis of adhesions and hopefully no bowel resection but that is possible if a bad segment is really twisted up and not viable to lyse free. I think it is in her interest to proceed with this because of how frequently she is having trouble. Despite having multiple open procedures in the past, minimally invasive approach is definitely a possibility but will likely be tedious and may be a 3 to 4-hour surgery. Alternatively, it could be very straightforward and short. There is no way to know. Overall plan: Family discussion in a few hours Possible diagnostic laparoscopy/laparoscopic exploration Tuesday or Tuesday. Subjective Subjective Interval history since last seen: In the last 24 hours the patient had a clamp trial and had Gastrografin administered. She tolerated the clamp trial for 6 hours and then had the NG tube removed because she was having no nausea or vomiting and was having significant bowel function and there was scant residual on the NG tube suction trial. Since having it removed she has been on a clear liquid diet and tolerating that without nausea or vomiting. She has had multiple bowel movements this morning. All of this being said, she remains concerned. She is still having cramping abdominal pain every 30 or 40 minutes that lasts just for a few seconds but she still feels some discomfort. She is further concerned because she says this is happening all the time now. She complains this is my fifth or sixth time in the last few years and it is happening more frequently. She volunteers I think I need to have more surgery to fix this so I do not keep coming to the hospital to be admitted. Exam Narrative Exam Narrative: General: Nontoxic, comfortable and interactive Neuro: Alert and oriented x 3 Psych: Good mood and affect, good insight and understanding into her condition Chest: Nonlabored breathing Heart: Regular Abdomen: Soft, nondistended, nontender. Objective Last Vital Signs Temp 97.7 F 05/15/23 07:26 Pulse 73 05/15/23 07:26 Resp 20 05/15/23 07:26 BP 138/71 05/15/23 07:26 Pulse Ox 98 05/15/23 07:26 Time Spent with Patient Time Spent with Patient: >50 minutes Time was spent: preparing to see the patient(eg.review tests), obtaining and/or reviewing separately otained hiistory, ordering medications,tests, procedures, indepentently interpreting results, counseling the patient and care coordination
[2023-05-15 11:45] LABS: Lactate 0.7 mmol/L (0.6-1.4)
[2023-05-15] MEDS: POTASSIUM CHLORIDE/D5-0.45NACL 1,000 ML 75 MEQ IV (11:45)
--- NOTE | 2023-05-15 11:45 | DI.VRAD_ITS ---
PROCEDURE INFORMATION: Exam: XR Abdomen Exam date and time: 05/15/2023 11:22 AM Age: 72 years old Clinical indication: Condition or disease; Intestinal condition; Obstruction; Patient HX: ? Sbo. PT administered gastrograffin 1 day ago TECHNIQUE: Imaging protocol: Radiologic exam of the abdomen. Views: 2 Views. Upright and supine views. COMPARISON: CT ABDOMEN PELVIS W 05/13/2023 4:20 PM FINDINGS: Gastrointestinal tract: No retained contrast material within the small bowel. There remains a few mildly distended air-filled loops of small bowel in the left hemiabdomen. Intraperitoneal space: Normal. No free air. Bones/joints: Osteopenia with multilevel degenerative change. There is a scoliosis. There are pagetoid changes in the left ilium. IMPRESSION: No residual contrast material within the bowel. Mildly distended air-filled loops of small bowel in the left hemiabdomen Dictated and Authenticated by: Elissa Cisse MD. Ordering:YARELI Cisneros MD
[2023-05-15 11:47] LABS: Absolute Basophil Count 0.01 10^3/uL (0.0-0.2); Absolute Eosinophil Count 0.04 10^3/uL (0.0-0.7); Absolute Lymphocyte Count 0.87 10^3/uL (1.2-3.4); Absolute Monocyte Count 0.16 10^3/uL (0.1-0.8); Absolute Neutrophil Count 1.07 10^3/uL (1.2-6.7); Basophils % 0.5; Eosinophils % 1.9; HCT 34.5 % (36.0-46.0); HGB 12.1 g/dL (11.2-15.7); Lymphocytes % 40.5; MCH 34.7 pg (27.0-33.0); MCHC 35.1 % (32.0-36.0); MCV 99 fL (80-95); MPV 8.7 fL (8.0-11.0); Monocytes % 7.4; Neutrophils % 49.7; Platelet Count 152 10^3/uL (130-400); RBC 3.49 10^6/uL (3.93-5.22); RDW 12.3 % (11.7-14.6); RDW-SD 44.5 fL; WBC 2.15 10^3/uL (4.4-10.8)
[2023-05-15 11:57] LABS: Anion Gap 8.2 mmol/L (3-11); BUN 10 mg/dL (7-18); CO2 30.8 mmol/L (21.0-32.0); CREATININE 0.7 mg/dL (0.55-1.02); Calcium 8.8 mg/dL (8.5-10.1); Chloride 98 mmol/L (98-107); Estimated GFR 91.26 (mL/min/1.73m2); Glucose 96 mg/dL (74-106); Potassium 3.1 mmol/L (3.5-5.1); Sodium 137 mmol/L (136-145)
[2023-05-15] MEDS: Docusate Sodium 100 MG/10 ML CUP PO (14:09)
[2023-05-15 14:54] VITALS: BP 159/80; PULSE 65; RESP 18; TEMP 36.6; O2SAT 99
[2023-05-15] MEDS: Enoxaparin 40 MG/0.4 ML SYR SC (19:50)
[2023-05-15 19:55] VITALS: BP 161/72; PULSE 71; RESP 18; TEMP 36.9; O2SAT 100
[2023-05-16] MEDS: POTASSIUM CHLORIDE/D5-0.45NACL 1,000 ML 75 MEQ IV (00:59)
[2023-05-16] MEDS: MORPHine 2 MG/ML SYR IVP (01:30)
[2023-05-16 07:27] VITALS: BP 110/64; PULSE 70; RESP 20; TEMP 36.6; O2SAT 98
[2023-05-16] MEDS: Docusate Sodium 100 MG/10 ML CUP PO ×2 (08:44→14:52)
[2023-05-16] MEDS: Aspirin 81 MG CHEW PO (08:44)
[2023-05-16] MEDS: Gabapentin 300 MG CAP PO ×3 (08:44→21:02)
[2023-05-16] MEDS: ACETAMINOPHEN 1,000 MG/100 ML BTL 400 MG IVPB ×3 (08:44→21:02)
--- NOTE | 2023-05-16 09:33 | CMPROGNOTE_ITS ---
Date of service: 05/16/23 Time of Service: 09:33 Care Management Progress Note Progress Note Text Progress Note Text: S/O:Reyna was sitting up in a chair when CM met with her. She was pleasant in manner and engaged easily with CM, well known to her from previous hosp italizations. Reyna stated that she is feeling much better today and is having less pain. She informed CM that yesterday she experienced abdominal pain whenever she ate anything. Reyna reported that she hopes to be able to go home tomorrow if her pain stays well controlled. Reyna also talked about the fact that she is lonely. She had one good friend who about a year ago. She and her do not have any relatives close by and do most things together. She informed CM that she is very active and always on the go, but that Mick likes to sit and is less active. A: Reyna is a 72 year old woman admitted on 05/13/23 with a SBO P:Anticipate Reyna will be discharged home with no new services. She will follow up with her surgeon and plan of care and transport with family. CM will follow and assess for discharge planning concerns. SDOH(Care Management) Screening Will the Patient Participate in the Screening?: Yes Do you worry about having a steady place to live?: yes Problems where you live: no known problems In the past 12 months, have you had to go without electric, gas, oil or water in your home?: no Have you or anyone in your house had to go without enough food to eat?: no Has lack of transportation kept you from medical appointments or from doing things needed for daily living?: no Has anyone in your support network made you feel unsafe for any reason?: no Health Related Social Needs Health related social needs: housing instability, housed, with risk of homelessness(Z59.811)
--- NOTE | 2023-05-16 10:37 | PGE_ITS ---
Date of Service Date of service: 05/16/23 Time of Service: 08:30 Assessment and Plan Assessment and plan (1) GERD (gastroesophageal reflux disease): Status: Chronic Qualifiers: Esophagitis presence: esophagitis presence not specified Qualified Code(s): K21.9 - Gastro-esophageal reflux disease without esophagitis (2) Small bowel obstruction: Status: Acute Assessment and plan: Patient is well-known to me. She has a small bowel obstruction approximately once a year. She has had a open cholecystectomy and open radical hysterectomy and pelvic radiation. She was recently weaned off chronic narcotics and started on buprenorphine. Patient has been very diligent about taking Metamucil, stool softeners and drinking water daily. (3) Chronic narcotic dependence: Status: Chronic (4) Radiation vulvitis: Status: Chronic (5) Hx SBO: Assessment and plan: Patient is feeling better today and is tolerating clears. She has had multiple bowel movements. -Patient has a upcoming trip to [facility] in 2 weeks time. We discussed during surgery today. I have a feeling she is going to have extensive adhesions from her previous open [place] and open hysterectomy and pelvic radiation. This is not something we would be able to do laparoscopically and would require an open surgery and extensive adhesiolysis. She runs a high risk for enterotomy. And if she has a open procedure then she is at risk for developing more scar tissue. I do feel that this surgery would interfere with her upcoming trip. I also do not think a 20-hour plane ride or prolonged travel would be advisable 2 weeks after major surgery. There are no guarantees that she will not get sick again before she goes on her trip or while she is in [facility]. But I also do not feel that it is advisable to leave the country after extensive surgery/well in the postop. We will try a soft diet tonight and see how she feels in the morning. If she is tolerating soft diet then we will plan on discharge. Patient is concerned and wants to make sure she gets her valtrex adn lenalidomide before she goes home. And again we reviewed the importance of making sure she is moving her bowels regularly. The buprenorphine will still make her constipated This document was created with voice activated software and may contain errors. 30 mins spent with the patient today. (6) Malignant neoplasm of uterus: (7) History of radiation therapy: (8) Hypokalemia due to loss of potassium: Status: Acute Assessment and plan: Replaced (9) Multiple myeloma in remission: Subjective Subjective Interval history since last seen: Pt is doing well. no headaches. No CP or SOB. no productive cough. no dy suria. no leg pain or swelling. She is tolerating clear liquids today. She does not have any abdominal pain today Exam Const General: cooperative, healthy appearing, comfortable and no acute distress Other: PHYSICAL EXAM LUNGS: normal respiration/normal chest excursion. ?Clear to auscultation bilaterally. ?No wheeze. ?HEART: Regular rate and rhythm. no murmurs EXTREMITY: No edema or cyanosis.? no leg pain, redness, swelling.? ABDOMEN: soft and non-tender to palpation.? Normal bowel sounds.? No hernias.? Postsurgical changes noted Objective Last Vital Signs Temp 36.6 C 05/16/23 07:27 Pulse 70 05/16/23 07:27 Resp 20 05/16/23 07:27 BP 110/64 05/16/23 07:27 Pulse Ox 98 05/16/23 07:27 Laboratory Results - last 24 hr 05/15/23 11:40 WBC 2.15 L RBC 3.49 L Hgb 12.1 Hct 34.5 L MCV 99 H D MCH 34.7 H MCHC 35.1 RDW 12.3 Plt Count 152 MPV 8.7 Immature Gran % 0.0 Neutrophils % 49.7 Lymphocytes % 40.5 Monocytes % 7.4 Eosinophils % 1.9 Basophils % 0.5 Nucleated RBC % 0.0 Absolute Neutrophils 1.07 L Absolute Lymphocytes 0.87 L Absolute Monocytes 0.16 Absolute Eosinophils 0.04 Absolute Basophils 0.01 VBG Lactate 0.7 Sodium 137 Potassium 3.1 L Chloride 98 Carbon Dioxide 30.8 Anion Gap 8.2 BUN 10 Creatinine 0.7 Est GFR (CKD-EPI 2020) 91.26 Glucose 96 Calcium 8.8 Time Spent with Patient Time Spent with Patient: 25-34 minutes Time was spent: preparing to see the patient(eg.review tests), obtaining and/or reviewing separately otained hiistory, ordering medications,tests, procedures, referring, communicating with other health acute care physical therapist, indepentently interpreting results, counseling the patient and care coordination
--- NOTE | 2023-05-16 13:31 | PHA.REVIEW2 ---
Pharmacy Admission Review Admission Clinical Review Admission Pharmacy Review: Small bowel obstruction (Acute) Abdominal pain (Acute) iodine Allergy (Intermediate, Verified 05/13/23 14:28) rashes DUST Allergy (Unknown, Uncoded 05/13/23 14:28) sneezing MOLD AND SMUT Allergy (Unknown, Uncoded 05/13/23 14:28) respiratory Resuscitation Status Full Code Height 4 ft 11 in Weight 59.959 kg Pharmacy Admission Review Renal Dosing Renal Dosing: BUN 10 mg/dL (7-18) 05/15/23 11:40 Creatinine 0.7 mg/dL (0.55-1.02) 05/15/23 11:40 Medications needing adjustments: Reviewed (CrCl 47.43 mL/min) Anticoagulation Anticoagulation: Hgb 12.1 g/dL (11.2-15.7) 05/15/23 11:40 Hct 34.5 % (36.0-46.0) L 05/15/23 11:40 Plt Count 152 10^3/uL (130-400) 05/15/23 11:40 Creatinine 0.7 mg/dL (0.55-1.02) 05/15/23 11:40 DVT Prophylaxis: Reviewed Medications: Enoxaparin (40mg q24h) Opiate Usage Evaluate Pain Scale/Pains Meds: Reviewed (PRN morphine) Scheduled Bowel Reg ordered if on Opiates?: Yes (Docusate) Relevant Labs Relevant Labs: Sodium 137 mmol/L (136-145) 05/15/23 11:40 Potassium 3.1 mmol/L (3.5-5.1) L 05/15/23 11:40 Chloride 98 mmol/L (98-107) 05/15/23 11:40 Electrolytes, C-Reactive P, ESR: Reviewed (Urine culture growing gram positive mixed jessi. No other new labs for today) Cardiac Review BP, HR, EF%: Reviewed (BP and HR WNL) QTc Review QTc: Reviewed (Last EKG was 09/23/21 and QTc was 455) IV to PO Switch IV Medications: Reviewed Home Meds Home Med List reviewed: Reviewed Relevent Home Meds Not ordered & why?: On home med list but no order: Ibuprofen (PRN) and nystatin (PRN) Patient had [place] (non-formulary) brought it, patients lenalidomide was also put in as patients own but it was not brought it. Called nursing to make them aware. Current Meds Current Medication Order Review: Reviewed
[2023-05-16 15:23] VITALS: BP 169/76; PULSE 63; RESP 18; TEMP 36.6; O2SAT 99
[2023-05-16 21:01] VITALS: BP 147/78; PULSE 64; RESP 16; TEMP 36.6; O2SAT 99
[2023-05-16] MEDS: valACYclovir 500 MG TAB PO (21:02)
[2023-05-16] MEDS: Potassium Chloride 20 MEQ TABCR PO (21:02)
[2023-05-16] MEDS: Enoxaparin 40 MG/0.4 ML SYR SC (21:03)
[2023-05-17] MEDS: ACETAMINOPHEN 1,000 MG/100 ML BTL 400 MG IVPB ×2 (03:23→10:40)
[2023-05-17 07:09] LABS: HCT 30.5 % (36.0-46.0); HGB 10.9 g/dL (11.2-15.7); MCH 35.2 pg (27.0-33.0); MCHC 35.7 % (32.0-36.0); MCV 98 fL (80-95); MPV 9.3 fL (8.0-11.0); Platelet Count 132 10^3/uL (130-400); RDW 12.2 % (11.7-14.6); RDW-SD 44.3 fL; WBC 2.63 10^3/uL (4.4-10.8)
[2023-05-17 07:26] VITALS: BP 120/75; PULSE 63; RESP 16; TEMP 36.7; O2SAT 99
[2023-05-17] MEDS: Potassium Chloride 20 MEQ TABCR PO (08:09)
[2023-05-17] MEDS: valACYclovir 500 MG TAB PO (08:09)
[2023-05-17] MEDS: Gabapentin 300 MG CAP PO (08:09)
--- NOTE | 2023-05-17 08:27 | PDOC.CMPRO ---
Date of service: 05/17/23 Time of Service: 08:27 Care Management Progress Note Progress Note Text Progress Note Text: A: Vi is a 72 year old woman admitted on 05/13/23 with a SBO P:Anticipate Vi will be discharged home with no new services. She will follow up with her surgeon and plan of care and transport with family. CM will follow and assess for discharge planning concerns. SDOH(Care Management) Screening Will the Patient Participate in the Screening?: Yes Do you worry about having a steady place to live?: yes Problems where you live: no known problems In the past 12 months, have you had to go without electric, gas, oil or water in your home?: no Have you or anyone in your house had to go without enough food to eat?: no Has lack of transportation kept you from medical appointments or from doing things needed for daily living?: no Has anyone in your support network made you feel unsafe for any reason?: no Health Related Social Needs Health related social needs: housing instability, housed, with risk of homelessness(Z59.811)
[2023-05-17 10:06] LABS: Lab Add On Test DONE
[2023-05-17 10:17] LABS: BUN 5 mg/dL (7-18); CREATININE 0.7 mg/dL (0.55-1.02); Calcium 8.2 mg/dL (8.5-10.1); Chloride 104 mmol/L (98-107); Estimated GFR 91.26 (mL/min/1.73m2); Glucose 91 mg/dL (74-106); Potassium 3.4 mmol/L (3.5-5.1); Sodium 140 mmol/L (136-145)
--- NOTE | 2023-05-17 10:27 | W.PM.PROGNOT ---
Date of Service Date of service: 05/17/23 Time of Service: 10:27 Assessment and Plan Assessment and plan (1) GERD (gastroesophageal reflux disease): Status: Chronic Qualifiers: Esophagitis presence: esophagitis presence not specified Qualified Code(s): K21.9 - Gastro-esophageal reflux disease without esophagitis (2) Small bowel obstruction: Status: Acute (3) Chronic narcotic dependence: Status: Chronic (4) Radiation vulvitis: Status: Chronic (5) Hx SBO: Assessment and plan: Patient symptoms have resolved and she is eager to have a little food and to be discharged. She denies having any nausea or vomiting. Her abdominal symptoms have resolved. She will continue on her bowel regimen upon discharge. Discharge home later today. (6) Malignant neoplasm of uterus: (7) History of radiation therapy: (8) Hypokalemia due to loss of potassium: Status: Acute Assessment and plan: Replaced (9) Multiple myeloma in remission: Subjective Subjective Interval history since last seen: Arrived the patient sitting in the chair. She states that she is feeling much better today. She has had multiple bowel movements. Exam Const General: cooperative, healthy appearing and comfortable Orientation: alert and oriented x3 Resp Effort & Inspection: normal respiratory effort, no audible wheezes and no cough GI Inspection: normal to inspection and non-distended Palpation: soft, no guarding and nontender Objective Last Vital Signs Temp 36.7 C 05/17/23 07:26 Pulse 63 05/17/23 07:26 Resp 16 05/17/23 07:26 BP 120/75 05/17/23 07:26 Pulse Ox 99 05/17/23 07:26 Laboratory Results - last 24 hr 05/17/23 05/17/23 05/17/23 06:13 09:53 09:55 WBC 2.63 L RBC 3.10 L Hgb 10.9 L Hct 30.5 L MCV 98 H MCH 35.2 H MCHC 35.7 RDW 12.2 Plt Count 132 MPV 9.3 Sodium 140 Cancelled Potassium 3.4 L Cancelled Chloride 104 Cancelled Carbon Dioxide 26.0 Cancelled Anion Gap 10.0 Cancelled BUN 5 L Cancelled Creatinine 0.7 Cancelled Est GFR (CKD-EPI 2020) 91.26 Cancelled Glucose 91 Cancelled Calcium 8.2 L Cancelled Add-On Test Request DONE Time Spent with Patient Time Spent with Patient: <25 minutes Time was spent: preparing to see the patient(eg.review tests), obtaining and/or reviewing separately otained hiistory and counseling the patient
--- NOTE | 2023-05-17 10:30 | W.PM.DS.N ---
Date of service: 05/17/23 Time of Service: 10:30 DS: Diagnosis Discharge Diagnosis (1) GERD (gastroesophageal reflux disease): Status: Chronic (2) Small bowel obstruction: Status: Acute (3) Chronic narcotic dependence: Status: Chronic (4) Radiation vulvitis: Status: Chronic (5) Hx SBO: (6) Malignant neoplasm of uterus: (7) History of radiation therapy: (8) Hypokalemia due to loss of potassium: Status: Acute (9) Multiple myeloma in remission: Discharge Plan Disposition Condition: Stable Condition: Good Discharge Details Reason For Visit: SBO Admit Date/Time: 05/13/23 19:01 Admit Provider: Blayne Villareal Attending Provider: Blayne Villareal Primary Care Provider: Reyna Abrams Hospital Course Hospital Course: 72-year-old female who is well-known to the surgical department was admitted for small bowel obstruction. Over the course of few days with IV hydration and bowel rest her SBO resolved spontaneously. She had complete return of her bowel function. She was able to tolerate a soft diet. She will be discharged home. She has an upcoming trip to [facility], recommend that she follow-up in the surgical group with Dr. Mcelroy following her return Home Meds and New Rx's Prescriptions: Continued gabapentin 300 mg capsule 300 mg PO TID Qty: 270 3RF Hold Instructions: Changed by Provider lenalidomide [Revlimid] 5 mg capsule 5 mg PO DAILY ibuprofen 200 mg tablet 200 mg PO Q6H PRN acetaminophen 325 mg tablet 325 mg PO ONCE PRN nystatin 100,000 unit/gram cream 1 applic TP BID Qty: 30 1RF Patient Comments: not taking per pt triamcinolone acetonide 0.1 % cream 1 applic TP BID Qty: 30 1RF Patient Comments: pt not sure if taking omeprazole 40 mg capsule,delayed release(DR/EC) 40 mg PO DAILY PRNQty: 90 Patient Comments: 04/09/16 takes prn. md buprenorphine HCl 150 mcg film 150 mcg buccal Q12H Qty: 60 3RF Patient Comments: pt not sure if still taking aspirin [Aspirin Low-Strength] 81 MG tablet,chewable 81 mg PO DAILY Patient Comments: 09-21-17 pt reports that she takes this med every other day. hb polyethylene glycol 3350 [Miralax] 17 gram/dose powder 8.5 g PO HS Qty: 0 0RF Rx Instructions: take a dose at bedtime if no BM during the day valacyclovir 500 mg tablet 500 mg PO BID Qty: 60 3RF acetaminophen 500 mg Tablet 1,000 mg PO Q8H PRN PRNQty: 60 0RF Hold Instructions: Changed by Provider Discharge Instructions Referrals: María Elena Mcelroy DO [OSTEOPATHIC DOCTOR] - (1 month) Activity:: Activity as Tolerated Activity:: Activity as Tolerated Equipment/Supplies:: No Equipment Needed Diet:: Normal Diet DS: Summary Time Spent with Patient providing and/or coordinating discharge services: Less than 30 minutes Status at Discharge Functional status at discharge: independent ambulation Overall status at discharge: patient is back to baseline Mental Status: mental status grossly normal Speech and Movement: speech and movement normal Mood: congruent mood Affect: normal affect Quality:SDOH Health Related Social Needs: Health related social needs risk of homeless Exam Const General: cooperative, healthy appearing and comfortable Orientation: alert and oriented x3 Resp Effort & Inspection: normal respiratory effort, no audible wheezes and no cough GI Inspection: normal to inspection and non-distended Palpation: soft, no guarding and nontender Psych Mental Status: mental status grossly normal Speech and Movement: speech and movement normal Mood: congruent mood Affect: normal affect DS: Data Vitals/I&O Vitals and I&O: Vital Signs Temperature 36.7 C 05/17/23 07:26 Temperature Source Tympanic 05/16/23 21:01 Pulse 63 05/17/23 07:26 Pulse Rhythm Regular 05/17/23 10:04 Respiratory Rate 16 05/17/23 07:26 Respiratory Effort Normal, Non-Labored 05/17/23 10:04 Respiratory Depth Normal 05/17/23 10:04 Respiratory Pattern Normal 05/17/23 10:04 Blood Pressure 120/75 05/17/23 07:26 Blood Pressure Mean 92 05/13/23 19:46 Pulse Oximetry 99 05/17/23 07:26 Oxygen Delivery Method Room Air 05/17/23 07:26 Oxygen Flow Rate 0 05/17/23 07:26 End Tidal Co2 10 05/13/23 14:19 Pain Level 3 05/16/23 21:01 Comment Complains of headache but no other pain is present at this time - KW 05/17/23 07:26 Intake & Output 05/16/23 05/17/23 05/17/23 18:59 06:59 18:59 Intake Total 1210 / 1310 100 / 1310 100 / 100 Balance 1210 / 1310 100 / 1310 100 / 100 Intake: IV 1210 / 1310 100 / 1310 100 / 100 Other: Urine Color Pale Pale Urine Appearance Clear Clear Clear Urine Odor Normal Stool Size Small Large Stool Characteristics Liquid Liquid Brown Voiding Methods Bedside Commode Bedside Commode Data Completed and Pending Labs on day of discharge: Labs from last 24 hours 05/17/23 05/17/23 05/17/23 09:55 09:53 06:13 WBC 2.63 L RBC 3.10 L Hgb 10.9 L Hct 30.5 L MCV 98 H MCH 35.2 H MCHC 35.7 RDW 12.2 Plt Count 132 MPV 9.3 Sodium Cancelled 140 Potassium Cancelled 3.4 L Chloride Cancelled 104 Carbon Dioxide Cancelled 26.0 Anion Gap Cancelled 10.0 BUN Cancelled 5 L Creatinine Cancelled 0.7 Est GFR (CKD-EPI 2020) Cancelled 91.26 Glucose Cancelled 91 Calcium Cancelled 8.2 L Add-On Test Request DONE PFSH All Active Problems (Updated 05/16/23 @ 21:54 by María Elena Mcelroy DO) Hypokalemia due to loss of potassium (Acute) Small bowel obstruction (Acute) Abdominal pain (Acute) Insomnia (Acute) Right hand paresthesia (Acute) HTN (hypertension) (Chronic) Chronic narcotic dependence (Chronic) changed from morphine to buprenorphine Therapeutic opioid induced constipation (Chronic) Pain from bone metastases (Chronic) maintained on morphine ER; managed by [facility] heme onc. Now on buprenorphine. Radiation vulvitis (Chronic) Onychomycosis (Chronic) GERD (gastroesophageal reflux disease) (Chronic) Medical History History of radiation therapy Screening for malignant neoplasm of colon performed Hx SBO Multiple hospitalizations. [place] to be due to opioid-induced constipation. Resolves with bowel rest. 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 04/2011 Hyst and BSO at [facility] Path= stage A1, Gr 11 Chronic hepatitis B (12/29/16) Multiple myeloma in remission on revlimid Surgical History History of colonoscopy (~10/2022) Hx of cataract surgery Hx of cholecystectomy S/P hysterectomy History of cholecystectomy H/O breast biopsy Right, 1o'clock, 12cm from nipple, US-guided needle core biopsy: negative for malignancy. fibroadipose tissue with assoc hemorrhage. Family History Mother , AGE 84 No problems noted. Father , AGE 92 No problems noted. Sister , AGE 79 No problems noted. Sister No problems noted. Brother , AGE 68 Stomach cancer Brother No problems noted. Brother No problems noted. Brother No problems noted. Brother No problems noted. Son No problems noted. 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 Pets and animals: No Sexually active: No Do you think of yourself as: straight/heterosexual Current gender identity: female What is your relationship status?: How often do you talk on the phone with friends or family?: three or more times per week How often do you get together with friends or relatives?: decline to answer How often do you attend taoist or buddhism services?: decline to answer Do you belong to any clubs or organized social groups?: no Panel score (0-1 are the most socially isolated patients): 2 What type of physical activity do you participate in: walking and running Duration: 30-45 minutes/day Frequency: 3-4 times per week Christianne/Presybeterian: Jehovah'S Witness Special christianne needs: No Seatbelt use: always Drive intox or ride w/intox 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
[2023-05-17] MEDS: Normal Saline Flush 10 ML SYR IVP (10:38)
--- NOTE | 2023-05-17 13:02 | PDOC.CMDIS ---
Date of service: 05/17/23 Time of Service: 13:02 LACE Index Scoring Tool Questions: Length of Stay (in days): 4 - 6 Was the patient admitted via the E.D.?: Yes Comorbidities: Any Tumor and Liver or Renal Disease E.D. 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 She will follow up with her surgeon and plan of care and transport with family. Patient/Family Education Needs: Review of discharge instructions, activity, limitations, follow up plan, discuss Ask Me Three SDOH Health Related Social Needs: Health related social needs risk of homeless Health related social needs: housing instability, housed, with risk of homelessness(Z59.811)
== END 2023-05-17 12:34 | disposition home or self-care (01) | DRG 389 ==
LOC: ER 19:30 → MS 19:57
PROVIDERS: Physician Assistant; Surgery; Admitting Provider Student in an Organized Health Care Education/Training Program; Emergency Provider Physician Assistant; PCP Family Medicine; Visit Provider Student in an Organized Health Care Education/Training Program
DX: K56.609 Unspecified intestinal obstruction, unspecified as to partial versus complete obstruction (principal); C79.51 Secondary malignant neoplasm of bone; C90.01 Multiple myeloma in remission; G89.3 Neoplasm related pain (acute) (chronic); G47.00 Insomnia, unspecified; I10 Essential (primary) hypertension; K21.9 Gastro-esophageal reflux disease without esophagitis; N76.3 Subacute and chronic vulvitis; Y84.2 Radiological procedure and radiotherapy as the cause of abnormal reaction of the patient, or of later complication, without mention of misadventure at the time of the procedure; E87.6 Hypokalemia; Z85.42 Personal history of malignant neoplasm of other parts of uterus; Z79.891 Long term (current) use of opiate analgesic
CPT/HCPCS: 00123; 36415; 80048; 80053; 83690; 85027; 96361; 96365; 96366; 96367; 96368; 96372; 96374; 96375; 99222; 99232; 99233; 99238; 99285; J1650; 71045; 74019; 74177; 81003; 81015; 83605; 85025; 87086; J0131; J2270; J2405; J3490

== ENCOUNTER 2023-07-06 05:07 | Outpatient (CLI) | payer MEDICARE, BC, SELFPAY ==
[2023-07-06 13:21] LABS: Abs Immature Grans 0.01 10^3/uL (0.0-0.06); Absolute Basophil Count 0.01 10^3/uL (0.0-0.2); Absolute Eosinophil Count 0.34 10^3/uL (0.0-0.7); Absolute Lymphocyte Count 1.46 10^3/uL (1.2-3.4); Absolute Monocyte Count 0.29 10^3/uL (0.1-0.8); Basophils % 0.2; Eosinophils % 7.8; HCT 35.5 % (36.0-46.0); HGB 12.5 g/dL (11.2-15.7); Immature Grans % 0.2; Lymphocytes % 33.6; MCH 35.5 pg (27.0-33.0); MCHC 35.2 % (32.0-36.0); MCV 101 fL (80-95); Monocytes % 6.7; Neutrophils % 51.5; Platelet Count 185 10^3/uL (130-400); RBC 3.52 10^6/uL (3.93-5.22); RDW 12.4 % (11.7-14.6); RDW-SD 45.8 fL; WBC 4.34 10^3/uL (4.4-10.8)
[2023-07-06 13:23] LABS: Absolute Neutrophil Count 2.24 10^3/uL (1.2-6.7)
[2023-07-06 13:45] LABS: Iron 100 ug/dL (50-170); Total Iron Binding Capacity 277 ug/dL (250-450); Transferrin Sat 36 % (15-50)
[2023-07-06 14:15] LABS: ALT 27 U/L (14-59); AST 20 U/L (15-37); Albumin 3.5 g/dL (3.4-5.0); Alkaline Phosphatase 62 U/L (46-116); Anion Gap 6.6 mmol/L (3-11); BUN 14 mg/dL (7-18); Bilirubin, Total 0.3 mg/dL (0.2-1.0); CO2 30.4 mmol/L (21.0-32.0); CREATININE 0.8 mg/dL (0.55-1.02); Calcium 8.5 mg/dL (8.5-10.1); Chloride 103 mmol/L (98-107); Estimated GFR 77.75 (mL/min/1.73m2); Ferritin 224 ng/mL (8-252); Glucose 92 mg/dL (74-106); Potassium 3.5 mmol/L (3.5-5.1); Sodium 140 mmol/L (136-145); Total Protein 7.2 g/dL (6.4-8.2); Vitamin B12 279 pg/mL (193-986)
[2023-07-07 09:34] LABS: IgA 340 mg/dL (85-499); IgG 1505 mg/dL (610-1616); IgM 70 mg/dL (35-242); Kappa Free Light Chain 2.92 mg/dL (0.33-1.94); Lambda Free Light Chain 1.41 mg/dL (0.57-2.63)
[2023-07-07 13:59] LABS: Albumin 56.8 % (55.8-66.1); Albumin g/dL 4.1 g/dL (3.6-5.2); Total Protein 7.3 g/dL (6.3-8.2)
== END 2023-07-06 05:08 | disposition home or self-care (01) ==
LOC: LBO 05:07
PROVIDERS: PCP Family Medicine; Visit Provider Internal Medicine Hematology & Oncology
DX: D50.9 Iron deficiency anemia, unspecified (principal); C90.01 Multiple myeloma in remission
CPT/HCPCS: 36415; 80053; 82784; 82607; 82728; 83540; 83550; 83883; 84165; 85025

== ENCOUNTER 2023-07-09 13:34 | Emergency (ER) | payer MEDICARE, BC, SELFPAY ==
[2023-07-09] VITALS (15 sets, daily range): BP systolic 145–185; BP diastolic 66–74; PULSE 73–89; RESP 11–27; TEMP 37.1; O2SAT 96–99
--- NOTE | 2023-07-09 13:49 | ED.GENADUL_ITS ---
Discharge Plan Disposition Patient Disposition: Home Condition: Stable Discharge Details Clinical Impression: Localized allergic contact urticaria Primary Care Provider: Reyna Abrams ED Provider: Anuradha Jennings Home Meds and New Rx's Prescriptions: New prednisone 20 mg tablet 60 mg PO DAILY 3 Days Qty: 9 0RF Rx Instructions: Take 3 tablets once daily x 3 days No Action gabapentin 300 mg capsule 300 mg PO TID Qty: 270 3RF Hold Instructions: Changed by Provider lenalidomide [Revlimid] 5 mg capsule 5 mg PO DAILY ibuprofen 200 mg tablet 200 mg PO Q6H PRN acetaminophen 325 mg tablet 325 mg PO ONCE PRN nystatin 100,000 unit/gram cream 1 applic TP BID Qty: 30 1RF Patient Comments: not taking per pt triamcinolone acetonide 0.1 % cream 1 applic TP BID Qty: 30 1RF Patient Comments: pt not sure if taking buprenorphine HCl 150 mcg film 150 mcg buccal Q12H Qty: 60 3RF Patient Comments: pt not sure if still taking omeprazole 40 mg capsule,delayed release(DR/EC) 40 mg PO DAILY PRNQty: 90 Patient Comments: 04/09/16 takes prn. eugene aspirin [Aspirin Low-Strength] 81 MG tablet,chewable 81 mg PO DAILY Patient Comments: 09-21-17 pt reports that she takes this med every other day. hb polyethylene glycol 3350 [Miralax] 17 gram/dose powder 8.5 g PO HS Qty: 0 0RF Rx Instructions: take a dose at bedtime if no BM during the day valacyclovir 500 mg tablet 500 mg PO BID Qty: 60 3RF acetaminophen 500 mg Tablet 1,000 mg PO Q8H PRN PRNQty: 60 0RF Hold Instructions: Changed by Provider Discharge Instructions Instructions: Urticaria (ED) Additional Instructions: I do suspect that you have had an allergic reaction to the hair dye. At this time it does seem to be localized. Use topical benadryl gel which you can get over the counter. Take Pepcid daily for extra histamine blockage. Take the steroid as directed. Follow up with primary care provider in 3-5 days. Return to ED sooner if any worsening or concerns. Referrals: Reyna Abrams MD [Primary Care Provider] - 3 days HPI <Anuradha Jennings NP - Last Filed: 07/09/23 15:00> General Mode of arrival: ambulatory . Date/Time Provider Initiated Documentation: 07/09/23 13:35 . Limitations to Documentation: no limitations . Information obtained by: patient, RN notes reviewed and old records reviewed . HPI Narrative: 72 year old female who recently returned from [facility] complains of pruitic rash to scalp and left side of face. She reports she has taken Benadryl [employer] with some relief, only known exposure is new hair dye. No throat swelling, no wheezing noted. She does have reddness to back of neck, scalp, and left side of face. Related Data Home Medications Medication Instructions Recorded Confirmed aspirin 81 mg chewable tablet 81 mg PO DAILY 08/19/14 07/09/23 (Aspirin Low-Strength) valacyclovir 500 mg tablet 500 mg PO BID #60 tabs 05/25/18 07/09/23 lenalidomide 5 mg capsule 5 mg PO DAILY 02/21/19 07/09/23 (Revlimid) omeprazole 40 mg capsule,delayed 40 mg PO DAILY PRN #90 tab-caps 02/21/19 07/09/23 release acetaminophen 500 mg tablet 1,000 mg (2 x 500 mg) PO Q8H PRN 08/02/22 07/09/23 PRN #60 tabs gabapentin 300 mg capsule 300 mg PO TID #270 caps 08/20/22 07/09/23 polyethylene glycol 3350 17 8.5 g PO HS #0 grams 11/13/22 07/09/23 gram/dose oral powder (Miralax) nystatin 100,000 unit/gram topical 1 applic topical BID #30 grams 03/02/23 07/09/23 cream triamcinolone acetonide 0.1 % 1 applic topical BID #30 grams 03/02/23 07/09/23 topical cream acetaminophen 325 mg tablet 325 mg PO ONCE PRN 04/05/23 07/09/23 ibuprofen 200 mg tablet 200 mg PO Q6H PRN 04/05/23 07/09/23 buprenorphine HCl 150 mcg buccal 150 mcg buccal Q12H #60 ea 05/20/23 07/09/23 film prednisone 20 mg tablet 60 mg (3 x 20 mg) PO DAILY 3 days 07/09/23 #9 tabs Previous Rx's Medication Instructions Recorded valacyclovir 500 mg tablet 500 mg PO BID #60 tabs 05/25/18 acetaminophen 500 mg tablet 1,000 mg (2 x 500 mg) PO Q8H PRN 08/02/22 PRN #60 tabs gabapentin 300 mg capsule 300 mg PO TID #270 caps 08/20/22 polyethylene glycol 3350 17 8.5 g PO HS #0 grams 11/13/22 gram/dose oral powder (Miralax) nystatin 100,000 unit/gram topical 1 applic topical BID #30 grams 03/02/23 cream triamcinolone acetonide 0.1 % 1 applic topical BID #30 grams 03/02/23 topical cream buprenorphine HCl 150 mcg buccal 150 mcg buccal Q12H #60 ea 05/20/23 film prednisone 20 mg tablet 60 mg (3 x 20 mg) PO DAILY 3 days 07/09/23 #9 tabs Allergies Allergy/AdvReac Type Severity Reaction Status Date / Time iodine Allergy Intermediate rashes Verified 05/20/23 13:12 DUST Allergy Unknown sneezing Uncoded 05/20/23 13:12 MOLD AND SMUT Allergy Unknown respiratory Uncoded 05/20/23 13:12 General Stated Complaint: Allergic RICKI: 3 Review of Systems <Anuradha Jennings NP - Last Filed: 07/09/23 15:00> ENT Ears, Nose, Mouth, and Throat: Denies lip swelling, Denies throat swelling and Denies tongue swelling Respiratory Respiratory: Denies wheezing Integumentary/Breasts Skin/Breast: Reports as per HPI, Reports pruritus and Reports erythema Allergic/Immunologic Allergic/Immunologic: Denies urticaria, Denies lip swelling, Denies throat swelling, Denies tongue swelling and Denies wheezing Exam <Anuradha Jennings NP - Last Filed: 07/09/23 15:00> Narrative Exam Narrative: Constitutional: Alert and oriented x3. Appears stated age. Normal body habitus. Head: Normocephalic, no trauma. Eyes: Pupils PERRL, Red reflex noted, EOM's intact. Eyelids symmetrical without lesions, discharge, or swelling. ENT: Bilateral TM's WNL, External ear normal to inspection, no mastoid TTP, swelling, or erythema, Nasal turbinates WNL, no nasal discharge. Normal dentition, Posterior pharynx WNL, no exudate. Chest: RRR, Normal S1, S2, distal pulses intact. Resp: Lungs clear to auscultation bilaterally, no wheezes, rales, or rhonchi. Abdomen: Soft, non-distended, Normoactive bowel sounds all 4 quads. Musculoskeletal: Normal gait, Skin: No suspicious rashes or lesions. Capillary refill less than 2 sec. redness noted to the left side of face, back, neck and scalp. No hives no urticaria. Neurologic: Cranial nerves II-XII intact. Alert and oriented x 3. Motor: No deficits noted. Sensory: Intact bilaterally all 4 extremities. Hematologic/Lymphatic: No ecchymosis, no lymphadenopathy. Course <Anuradha Jennings NP - Last Filed: 07/09/23 15:00> Vital Signs Vital signs: Vital Signs Temperature 37.1 C 07/09/23 13:36 Pulse 88 07/09/23 13:36 Respiratory Rate 16 07/09/23 13:36 Pulse Oximetry 98 07/09/23 13:36 Temperature 37.1 C 07/09/23 13:36 Temperature Source Oral 07/09/23 13:36 Pulse 88 07/09/23 13:36 Respiratory Rate 16 07/09/23 13:36 Respiratory Effort Normal 07/09/23 13:42 Respiratory Pattern Normal 07/09/23 13:42 Blood Pressure Position Supine 07/09/23 13:36 Pulse Oximetry 98 07/09/23 13:36 Oxygen Delivery Method Room Air 07/09/23 13:36 Oxygen Flow Rate 0 07/09/23 13:36 Medical Decision Making <Anuradha Jennings NP - Last Filed: 07/09/23 15:00> 72 year old female who recently returned from [facility] complains of pruitic rash to scalp and left side of face. She reports she has taken Benadryl [employer] with some relief, only known exposure is new hair dye. No throat swelling, no wheezing noted. She does have reddness to back of neck, scalp, and left side of face. 125 Solu-Medrol and Pepcid ordered. Patient did take 3 tablets of Benadryl prior to arrival. Patient improved prior to discharge, has continued to remain hemodynamically stable. No worsening in symptoms, do suspect a local contact dermatitis related to her hair dye. Discussed follow-up care. This text was generated using Mapflowation system, please disregard any oddities of phrase or misspellings. Valentine Sherwood: My name was added to this chart in error. Quality:SDOH Health Related Social Needs: Health related social needs risk of homeless <POLLY Hutchinson - Last Filed: 07/09/23 14:26> 125 Solu-Medrol and Pepcid ordered. Patient did take 3 tablets of Benadryl prior to arrival. Valentine Sherwood: My name was added to this chart in error. PFSH <Anuradha Jennings NP - Last Filed: 07/09/23 15:00> All Active Problems (Updated 07/09/23 @ 14:44 by Anuradha Jennings NP) Localized allergic contact urticaria (Acute) Hypokalemia due to loss of potassium (Acute) Insomnia (Acute) Right hand paresthesia (Acute) HTN (hypertension) (Chronic) Chronic narcotic dependence (Chronic) changed from morphine to buprenorphine Therapeutic opioid induced constipation (Chronic) Pain from bone metastases (Chronic) hx ofmorphine ER; managed by [facility] heme onc. Now on buprenorphine managed by [facility]. Radiation vulvitis (Chronic) Onychomycosis (Chronic) GERD (gastroesophageal reflux disease) (Chronic) Medical History History of radiation therapy Screening for malignant neoplasm of colon performed Hx SBO Multiple hospitalizations. Terrell to be due to opioid-induced constipation. Resolves with bowel rest. 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 04/2011 Hyst and BSO at [facility] Path= stage A1, Gr 11 Chronic hepatitis B (12/29/16) Multiple myeloma in remission on revlimid Surgical History History of colonoscopy (~10/2022) Hx of cataract surgery Hx of cholecystectomy S/P hysterectomy History of cholecystectomy H/O breast biopsy Right, 1o'clock, 12cm from nipple, US-guided needle core biopsy: negative for malignancy. fibroadipose tissue with assoc hemorrhage. Family History Mother , AGE 84 No problems noted. Father , AGE 92 No problems noted. Sister , AGE 79 No problems noted. Sister No problems noted. Brother , AGE 68 Stomach cancer Brother No problems noted. Brother No problems noted. Brother No problems noted. Brother No problems noted. Son No problems noted. 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 Pets and animals: No Sexually active: No Do you think of yourself as: straight/heterosexual Current gender identity: female What is your relationship status?: How often do you talk on the phone with friends or family?: three or more times per week How often do you get together with friends or relatives?: decline to answer How often do you attend taoist or yazdanism services?: decline to answer Do you belong to any clubs or organized social groups?: no Panel score (0-1 are the most socially isolated patients): 2 What type of physical activity do you participate in: walking and running Duration: 30-45 minutes/day Frequency: 3-4 times per week Christianne/Adventist: Christianity Special christianne needs: No Seatbelt use: always Drive intox or ride w/intox 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
[2023-07-09] MEDS: methylPREDNISolone SUCC 125 MG VIAL IVP (14:03)
[2023-07-09] MEDS: Famotidine 20 MG/2 ML VIAL IVP (14:05)
== END 2023-07-09 14:54 | disposition home or self-care (01) ==
PROVIDERS: Emergency Provider Registered Nurse Emergency; PCP Family Medicine
DX: L23.4 Allergic contact dermatitis due to dyes (principal)
CPT/HCPCS: 96374; 96375; 99284; 99283; J2919

== ENCOUNTER → 2023-07-25 10:51 | Outpatient (BNVA) | payer MEDICARE, BC, SELFPAY | PROVIDERS: PCP Family Medicine; Referring Provider Family Medicine; Visit Provider Surgery | DX: R10.9 Unspecified abdominal pain (principal) | CPT/HCPCS: 99213 ==

== ENCOUNTER 2023-08-01 05:49 | Outpatient (CLI) | payer MEDICARE, BC, SELFPAY ==
[2023-08-01 13:23] LABS: Abs Immature Grans 0.01 10^3/uL (0.0-0.06); Absolute Basophil Count 0.03 10^3/uL (0.0-0.2); Absolute Eosinophil Count 0.25 10^3/uL (0.0-0.7); Absolute Neutrophil Count 1.64 10^3/uL (1.2-6.7); Basophils % 0.8; Eosinophils % 6.9; HCT 34.8 % (36.0-46.0); HGB 12.2 g/dL (11.2-15.7); Immature Grans % 0.3; Lymphocytes % 38.6; MCH 35.4 pg (27.0-33.0); MCHC 35.1 % (32.0-36.0); MCV 101 fL (80-95); MPV 8.6 fL (8.0-11.0); Monocytes % 8.3; Neutrophils % 45.1; Platelet Count 183 10^3/uL (130-400); RBC 3.45 10^6/uL (3.93-5.22); RDW 12.2 % (11.7-14.6); RDW-SD 45.5 fL; WBC 3.63 10^3/uL (4.4-10.8)
[2023-08-01 14:03] LABS: Iron 94 ug/dL (50-170); Total Iron Binding Capacity 296 ug/dL (250-450); Transferrin Sat 32 % (15-50)
[2023-08-01 14:16] LABS: ALT 27 U/L (14-59); AST 23 U/L (15-37); Albumin 3.8 g/dL (3.4-5.0); Alkaline Phosphatase 59 U/L (46-116); BUN 11 mg/dL (7-18); Bilirubin, Total 0.5 mg/dL (0.2-1.0); CREATININE 0.8 mg/dL (0.55-1.02); Calcium 8.8 mg/dL (8.5-10.1); Chloride 99 mmol/L (98-107); Estimated GFR 77.75 (mL/min/1.73m2); Ferritin 220 ng/mL (8-252); Glucose 94 mg/dL (74-106); Sodium 132 mmol/L (136-145); Total Protein 7.7 g/dL (6.4-8.2); Vitamin B12 286 pg/mL (193-986)
[2023-08-02 09:26] LABS: IgA 345 mg/dL (85-499); IgG 1372 mg/dL (610-1616); IgM 70 mg/dL (35-242); Kappa Free Light Chain 2.62 mg/dL (0.33-1.94); Lambda Free Light Chain 1.28 mg/dL (0.57-2.63)
[2023-08-02 13:54] LABS: Albumin 57.3 % (55.8-66.1); Albumin g/dL 4.3 g/dL (3.6-5.2); Total Protein 7.5 g/dL (6.3-8.2)
== END 2023-08-01 05:50 | disposition home or self-care (01) ==
LOC: LBO 05:49
PROVIDERS: PCP Family Medicine; Visit Provider Internal Medicine Hematology & Oncology
DX: D50.9 Iron deficiency anemia, unspecified (principal); C90.01 Multiple myeloma in remission; D51.9 Vitamin B12 deficiency anemia, unspecified
CPT/HCPCS: 36415; 80053; 82784; 82607; 82728; 83540; 83550; 83883; 84165; 85025

== ENCOUNTER 2023-09-04 19:35 | Inpatient (IN) | payer MEDICARE, BC, SELFPAY ==
[2023-09-04] VITALS (27 sets, daily range): BP systolic 142–198; BP diastolic 52–112; PULSE 60–79; RESP 8–24; TEMP 35.7–37.5; O2SAT 94–100
--- NOTE | 2023-09-04 19:30 | RT.EKG_ITS ---
APPROVED REPORT Exam: Resting ECG Reason for Exam: weakness Patient Location: E HR:63 bpm ECG Measurements Heart Rate 63 AXIS CO 169 P 43 QRSd 87 QRS -6 QT 408 T 1 QTc 418 Conclusion Sinus rhythm 63 no stemi
--- NOTE | 2023-09-04 19:30 | DI.CT_ITS ---
Exam(s) CT ABDOMEN PELVIS W EXAM: CT ABDOMEN PELVIS W CLINICAL HISTORY: severe pain, hx of sbo TECHNIQUE: Imaging Protocol: Axial computed tomography images with coronal and sagittal reformatted images were created and reviewed. CONTRAST MATERIAL: Intravenous: Omnipaque 350 Contrast volume:90 mL Oral: No COMPARISON: CT ABD PELVIS WO CONTRAST from 12/10/[address] ABDOMEN PELVIS WO from 07/29/[address] ABDOMEN PELVIS WO from 08/14/[address] ABDOMEN PELVIS WO from 11/11/[address] ABDOMEN PELVIS W from 05/13/2023 FINDINGS: ABDOMEN: Lung Bases: There is a small hiatal hernia. Liver: Normal density. No measurable mass. Portal, Superior Mesenteric, and Splenic Veins: Unremarkable. Gallbladder and Biliary Tract: Status post cholecystectomy. Stable intra and extrahepatic biliary du ctal dilatation. Pancreas: Normal density, no abnormal calcifications or inflammatory process. Spleen: Normal. Adrenals: No masses seen. Kidneys: Normal size, contour and axis. No radiodense stones or obstructive uropathy. No masses seen. Abdominal Aorta: Abdominal portion non-dilated. Atherosclerotic calcification is present. Bowel: There are fluid-filled loops of small bowel present. The stomach is distended. There is thic kening of the wall of the distal stomach. The terminal ileum is of normal caliber. The transition l ies in the right lower quadrant. At the transition on the coronal images, series 6, image 36 there i s a question of a soft tissue mass measuring 1.7 cm. No pneumatosis is seen. There is no evidence o f appendicitis. Peritoneal Cavity: No ascites, collection or mesenteric inflammatory response. No free air. Lymph Nodes: Within normal limits. Bones: Within normal limits for the patient's age. Pelvic bones appears stable. Soft Tissues: Unremarkable. PELVIS: Bladder: Symmetric distention, no gross wall thickening. Reproductive Organs: Status post hysterectomy. Lymph Nodes: Within normal limits. Bones: Within normal limits for the patient's age. IMPRESSION: 1. Findings of a small-bowel obstruction with a transition in the right lower quadrant. On the coron al images there is a question of 1.7 cm soft tissue mass at the transition point. 2. Thickening of the wall of the distal stomach which may represent a gastritis. Please correlate cl inically. 3. No evidence of pneumoperitoneum. RADIATION DOSE DELIVERED: 681.21mGy.cm Total DLP DATA REPOSITORY: All CT scans at this facility are submitted to the National Radiology Data Registry (NRDR) Dose Index Registry (DIR) with the [employer] (ACR). RADIATION OPTIMIZATION: All CT scans at this facility use at least one of these dose optimization te chniques: automated exposure control; mA and/or kV adjustment per patient size (includes targeted exa ms where dose is matched to clinical indication); or iterative reconstruction.
--- NOTE | 2023-09-04 19:45 | DI.RAD_ITS ---
Exam(s) XR CHEST 2V PA LATERAL EXAM: XR CHEST 2V PA LATERAL CLINICAL HISTORY: epigastric pain TECHNIQUE: 2D digital imaging was performed of the chest. Two images were obtained. PA and lateral views were obtained. COMPARISON: CR CHEST 2 VIEWS PA,LAT from 12/26/2016 CR,XR XR PORTABLE CHEST AP from 09/23/2021 CR,XR XR PORTABLE CHEST AP from 09/24/2021 CR,XR XR PORTABLE CHEST AP from 07/29/2022 CR,XR XR PORTABLE CHEST AP from 05/13/2023 FINDINGS: MEDIASTINUM: Normal. HEART: Normal. PULMONARY VASCULATURE: Normal. LUNGS: Clear. PLEURAL SPACE: No pleural effusion or pneumothorax. BONE:Within normal limits for the patient's age. Multiple stable compression fracture deformities ar e seen in the spine. OTHER FINDINGS:Normal. IMPRESSION: No acute pulmonary findings. DATA REPOSITORY: RADIATION DOSE DELIVERED:
[2023-09-04] MEDS: HYDROmorphone 2 MG/ML SYR 0.5 MG IVP (19:56)
[2023-09-04 19:58] LABS: Lactate 1.2 mmol/L (0.6-1.4)
[2023-09-04] MEDS: Normal Saline 1,000 ML 1000 ML IV (19:58)
[2023-09-04] MEDS: Ondansetron 4 MG/2 ML VIAL IVP (19:58)
[2023-09-04 20:00] LABS: Abs Immature Grans 0.02 10^3/uL (0.0-0.06); Absolute Basophil Count 0.03 10^3/uL (0.0-0.2); Absolute Eosinophil Count 0.14 10^3/uL (0.0-0.7); Absolute Lymphocyte Count 0.96 10^3/uL (1.2-3.4); Absolute Monocyte Count 0.27 10^3/uL (0.1-0.8); Absolute Neutrophil Count 5.75 10^3/uL (1.2-6.7); Basophils % 0.4 %; HCT 40.6 % (36.0-46.0); HGB 14.6 g/dL (11.2-15.7); Immature Grans % 0.3 %; Lymphocytes % 13.4 %; MCH 34.9 pg (27.0-33.0); MCV 97 fL (80-95); Monocytes % 3.8 %; Neutrophils % 80.1 %; Platelet Count 196 10^3/uL (130-400); RBC 4.18 10^6/uL (3.93-5.22); RDW 11.4 % (11.7-14.6); WBC 7.17 10^3/uL (4.4-10.8)
[2023-09-04] MEDS: Omnipaque 350 MG/ML 100 ML BTL IJ (20:09)
[2023-09-04] MEDS: Normal Saline - Diluent 50 ML VIAL IJ (20:11)
[2023-09-04 20:17] LABS: ALT 27 U/L (14-59); AST 27 U/L (15-37); Albumin 4.5 g/dL (3.4-5.0); Alkaline Phosphatase 74 U/L (46-116); Anion Gap 5.7 mmol/L (3-11); BUN 15 mg/dL (7-18); Bilirubin, Total 0.7 mg/dL (0.2-1.0); CO2 28.3 mmol/L (21.0-32.0); CREATININE 0.9 mg/dL (0.55-1.02); Calcium 9.7 mg/dL (8.5-10.1); Chloride 95 mmol/L (98-107); Glucose 128 mg/dL (74-106); Lipase 39 U/L (16-77); Potassium 4.2 mmol/L (3.5-5.1); Sodium 129 mmol/L (136-145); Total Protein 8.9 g/dL (6.4-8.2)
[2023-09-04 20:18] LABS: Troponin I < 50 ng/L (< or =60)
--- NOTE | 2023-09-04 20:45 | DI.RAD_ITS ---
Exam(s) XR ABDOMEN FLAT PLATE EXAM: 2D digital imaging was performed. CLINICAL HISTORY: ng confirmation. COMPARISON: CR,XR XR ABDOMEN FLAT PLATE from 11/13/2022 TECHNIQUE: Supine views of the abdomen was performed. One images were obtained. FINDINGS: LUNG BASES: Clear. BOWEL GAS PATTERN: Nondistended. FREE AIR: None. CALCIFICATIONS: No radiopaque calcifications. OSSEOUS STRUCTURES: Normal for age. There is a left convex lumbar scoliosis. Stable mixed lytic and sclerotic lesion is seen in the left ilium. OTHER FINDINGS: There is an enteric tube present. The tip is in the distal stomach. Contrast is see n in the renal collecting systems consistent with the patient's recent CT scan. There are surgical c lips in the right upper quadrant of the abdomen consistent with prior cholecystectomy. IMPRESSION: The tip of the enteric tube is seen in the distal stomach. DATA REPOSITORY: RADIATION DOSE DELIVERED:
[2023-09-04] MEDS: Lidocaine 2% Viscous 15 ML CUP (20:58)
[2023-09-04 21:02] LABS: Bilirubin Negative (Negative); Blood Negative (Negative); Clarity Clear (Clear); Glucose Negative (Negative); Ketones Negative (Negative); Leukocyte Esterase Negative (Negative); Nitrite Negative (Negative); Specific Gravity 1.015 (1.005-1.025); Urobilinogen 0.2 mg/dL (Up to 0.2); pH 7.5 (5-8)
--- NOTE | 2023-09-04 21:15 | DI.RAD_ITS ---
Exam(s) XR ABDOMEN FLAT PLATE EXAM: 2D digital imaging was performed. CLINICAL HISTORY: ng placement. COMPARISON: CR,XR XR ABDOMEN FLAT PLATE from 09/04/2023 TECHNIQUE: Supine views of the abdomen was performed. One images were obtained. FINDINGS: LUNG BASES: Clear. BOWEL GAS PATTERN: Nondistended. FREE AIR: None. CALCIFICATIONS: No radiopaque calcifications. OSSEOUS STRUCTURES: Normal for age. There is a left convex thoracolumbar scoliosis. The mixed lytic and sclerotic lesion in the left ilium is stable. OTHER FINDINGS: The enteric tube has been retracted but still lies within the stomach. There is agai n seen contrast in the renal collecting system from the patient's recent CT scan. Surgical clips are seen in the right upper quadrant consistent with prior cholecystectomy. IMPRESSION: The enteric tube is still lies within the stomach. DATA REPOSITORY: RADIATION DOSE DELIVERED:
--- NOTE | 2023-09-04 21:33 | DI.VRAD_ITS ---
Addendum created by Emiliana Candelario MD on 09/04/2023 10:14:55 PM EDT: Upon further review, there is interloop fluid near the transition point. This can sometimes be a sign of bowel compromise.THIS REPORT CONTAINS FINDINGS THAT MAY BE CRITICAL TO PATIENT CARE. The findings were verbally communicated via telephone conference with Yessenia Horvath at 10:14 PM EDT on 09/04/2023. The findings were acknowledged and understood. Addendum created by Emiliana Candelario MD on 09/04/2023 9:36:42 PM EDT: THIS REPORT CONTAINS FINDINGS THAT MAY BE CRITICAL TO PATIENT CARE. The findings were verbally communicated via telephone conference with Yessenia Horvath at 9:35 PM EDT on 09/04/2023. The findings were acknowledged and understood. A surgical consult was recommended. Per the ordering clinician, the patient does have a history of multiple myeloma which would account for the lucent lesions. The expansile lesion in the pelvis remains indeterminate. Consider MRI for further evaluation if this has not already been performed. Initial report created on 09/04/2023 9:32:23 PM EDT: PROCEDURE INFORMATION: Exam: CT Abdomen And Pelvis With Contrast Exam date and time: 09/04/2023 8:14 PM Age: 72 years old Clinical indication: Abdominal pain; Patient HX: Severe pain, HX of sbo TECHNIQUE: Imaging protocol: Computed tomography of the abdomen and pelvis with contrast. COMPARISON: CT ABDOMEN PELVIS W 05/13/2023 4:20 PM FINDINGS: Lungs: Atelectasis versus scarring at the lung bases. Liver: Again seen is a small hypodensity near the falciform ligament. This is a good location for focal fat or a small portal perfusion defect. If indicated, diagnosis can be confirmed with MRI. Gallbladder and bile ducts: Cholecystectomy clips. Again seen is intrahepatic and extrahepatic biliary ductal dilation. This may be secondary to the patient's cholecystectomy status. However, correlation with lab values is suggested. Pancreas: There is mild prominence to the pancreatic duct, similar to prior examination. If there is concern for pancreatic pathology, a dedicated MRI/MRCP would be beneficial. Spleen: Normal. No splenomegaly. Adrenal glands: Normal. No mass. Kidneys and ureters: Normal. No hydronephrosis. Stomach and bowel: Heterogeneous contents to the stomach, favored to be related to ingested products. Some are hyperdense. Blood products are not excluded. There is wall prominence to the distal stomach/proximal duodenal which should be correlated with any concern for gastritis/duodenitis. There are mildly dilated loops of fluid-filled small bowel which end in the right lower quadrant of the abdomen on series 4, image 56 where an abrupt transition is identified. Findings are most consistent with a small bowel obstruction. The loop of bowel just upstream from the transition has a subtle qvjz-aclxle-o-ring appearance. A polyp or other obstructing abnormality in this region is not excluded. Intussusception is thought to be less likely as there is no fat between the layers. There is also some upstream fecalization. Gas and stool remains noted in the colon so this may be early or partial. Appendix: No evidence of appendicitis. Intraperitoneal space: No free air. Vasculature: There are vascular calcifications.. No abdominal aortic aneurysm. Lymph nodes: Unremarkable. No enlarged lymph nodes. Urinary bladder: Unremarkable as visualized. Reproductive: Hysterectomy changes Bones/joints: Skeletal degenerative changes and osteopenia are noted. There is scoliosis. Expansile heterogeneous lesion in the left iliac bone is similar to prior examination and of uncertain significance. Scattered skeletal lucent lesions are also similar in appearance. Findings should be correlated with any history of underlying malignancy. Loss in height of the L5 vertebral body is again seen. No acute fracture appreciated. Soft tissues: Unremarkable. IMPRESSION: 1.There are dilated loops of fluid-filled small bowel which end in the right lower quadrant of the abdomen on series 4, image 56 where an abrupt transition is identified. Findings are most consistent with a small bowel obstruction. The loop of bowel just upstream from the transition has a subtle wayx-qgykbu-i-ring appearance. A polyp or other obstructing abnormality in this region is not excluded. Intussusception is thought to be less likely as there is no fat between the layers. Gas and stool remains noted in the colon so this may be early or partial. 2. Heterogeneous contents to the stomach, favored to be related to ingested products. Some are hyperdense. Blood products are not excluded. 3. Some wall prominence to the distal stomach/proximal duodenal which should be correlated with any concern for gastritis/duodenitis. 4. Persistent intrahepatic and extrahepatic biliary ductal dilation. This may be secondary to the patient's cholecystectomy status. However, correlation with lab values is suggested. 5. No significant change in expansile heterogeneous lesion in the left iliac bone and multiple scattered lucent lesions in the bony skeleton. Correlation with any history of underlying malignancy is recommended. Consider MRI for further evaluation. Other findings/details as above. Dictated and Authenticated by: Emiliana Candelario MD. Ordering:SEB Casas MD
--- NOTE | 2023-09-04 21:46 | DI.VRAD_ITS ---
PROCEDURE INFORMATION: Exam: XR Abdomen Exam date and time: 09/04/2023 8:59 PM Age: 72 years old Clinical indication: Device placement; Gi device; Nasogastric tube; Patient HX: Ng tube confirmation TECHNIQUE: Imaging protocol: Radiologic exam of the abdomen. Views: Frontal supine view of the abdomen. 1 View. COMPARISON: CT ABDOMEN PELVIS W 09/04/2023 8:14 PM FINDINGS: Tubes, catheters and devices: NG tube tip at the antrum of the stomach. Gastrointestinal tract: Paucity of bowel gas throughout the abdomen and pelvis, nonspecific. Organs: Residual contrast at the renal collecting systems and bladder from previous IV contrast administration. Bones/joints: Thoracolumbar scoliosis. IMPRESSION: NG tube tip at the antrum of the stomach. Dictated and Authenticated by: Adolfo Mcgrath MD. Ordering:SEB Casas MD
--- NOTE | 2023-09-04 21:54 | DI.VRAD_ITS ---
PROCEDURE INFORMATION: Exam: XR Chest Exam date and time: 09/04/2023 8:23 PM Age: 72 years old Clinical indication: Patient HX: Epigastric pain TECHNIQUE: Imaging protocol: Radiologic exam of the chest. Views: 2 views. COMPARISON: CR XR PORTABLE CHEST AP 05/13/2023 9:57 PM FINDINGS: Lungs: Unremarkable. No consolidation. Pleural spaces: Unremarkable. No pleural effusion. No pneumothorax. Heart/Mediastinum: Unremarkable. No cardiomegaly. Bones/joints: Thoracolumbar scoliosis. IMPRESSION: No acute abnormality identified. Dictated and Authenticated by: Adolfo Mcgrath MD. Ordering:SEB Casas MD
--- NOTE | 2023-09-04 21:58 | SCONE_ITS ---
Date of service: 09/04/23 Time of Service: 22:02 Assessment and Plan Assessment and plan (1) SBO (small bowel obstruction): Status: Acute Assessment and plan: 72 yo woman with recurrent SBO. RLQ transition point. Presumably mechanical, but this is a recurring theme for her. Her prior obstructions resolve with NG tube decompression. No surgical emergency, but I do think she should have definitive surgical intervention this admission. This has been going on long enough. I'll discuss with her and her tomorrow and plan for a semi-elective exploration that will likely be somewhat lengthy in time, but at this point seems necessary in her long-term care. We can't let this keep going on in my opinion. Plan for tonight: NPO NGT IVF resuscitation Planning and discussion tomorrow Diagnostic Laparoscopy in next few days after the bowel is decompressed and she is resuscitated. History of Present Illness Narrative: Patient known to me with another SBO with transition point in the same location as before. Patient has known chronic pain and also bone malignancy contributing. Some degree of narcotic dependance. Previously we've had discussion about semi-elective surgery. Per ED provider: Pain started earlier today. ED placed NGT. PFSH All Active Problems (Updated 09/04/23 @ 22:02 by Blayne Villareal MD) SBO (small bowel obstruction) (Acute) Hypokalemia due to loss of potassium (Acute) Insomnia (Acute) Right hand paresthesia (Acute) HTN (hypertension) (Chronic) Chronic narcotic dependence (Chronic) changed from morphine to buprenorphine Therapeutic opioid induced constipation (Chronic) Pain from bone metastases (Chronic) hx ofmorphine ER; managed by [facility] heme onc. Now on buprenorphine managed by CM. Radiation vulvitis (Chronic) Onychomycosis (Chronic) GERD (gastroesophageal reflux disease) (Chronic) Medical History History of radiation therapy Screening for malignant neoplasm of colon performed Hx SBO Multiple hospitalizations. [place] to be due to opioid-induced constipation. Resolves with bowel rest. 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 04/2011 Hyst and BSO at [facility] Path= stage A1, Gr 11 Chronic hepatitis B (12/29/16) Multiple myeloma in remission on revlimid Surgical History History of colonoscopy (~10/2022) Hx of cataract surgery Hx of cholecystectomy S/P hysterectomy History of cholecystectomy H/O breast biopsy Right, 1o'clock, 12cm from nipple, US-guided needle core biopsy: negative for malignancy. fibroadipose tissue with assoc hemorrhage. Family History Mother , AGE 84 No problems noted. Father , AGE 92 No problems noted. Sister , AGE 79 No problems noted. Sister No problems noted. Brother , AGE 68 Stomach cancer Brother No problems noted. Brother No problems noted. Brother No problems noted. Brother No problems noted. Son No problems noted. 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 Pets and animals: No Sexually active: No Do you think of yourself as: straight/heterosexual Current gender identity: female What is your relationship status?: How often do you talk on the phone with friends or family?: three or more times per week How often do you get together with friends or relatives?: decline to answer How often do you attend tenriism or shinto services?: decline to answer Do you belong to any clubs or organized social groups?: no Panel score (0-1 are the most socially isolated patients): 2 What type of physical activity do you participate in: walking and running Duration: 30-45 minutes/day Frequency: 3-4 times per week Christianne/Catholic: Christianity Special christianne needs: No Seatbelt use: always Drive intox or 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 Abdomen: Distended, but without peritoneal signs. Results Last Vital Signs Temp 99.5 F 09/04/23 19:45 Pulse 74 09/04/23 21:46 Resp 12 09/04/23 21:50 BP 166/70 H 09/04/23 21:46 Pulse Ox 96 09/04/23 21:50 Labs 09/04/23 19:50 09/04/23 19:50 Labs: Laboratory Results - last 24 hr 09/04/23 09/04/23 19:50 20:50 WBC 7.17 RBC 4.18 Hgb 14.6 Hct 40.6 MCV 97 H MCH 34.9 H MCHC 36.0 RDW 11.4 L Plt Count 196 MPV 9.0 Immature Gran % 0.3 Neutrophils % 80.1 Lymphocytes % 13.4 Monocytes % 3.8 Eosinophils % 2.0 Basophils % 0.4 Nucleated RBC % 0.0 Absolute Neutrophils 5.75 Absolute Lymphocytes 0.96 L Absolute Monocytes 0.27 Absolute Eosinophils 0.14 Absolute Basophils 0.03 VBG Lactate 1.2 Sodium 129 L Potassium 4.2 Chloride 95 L Carbon Dioxide 28.3 Anion Gap 5.7 BUN 15 Creatinine 0.9 Est GFR (CKD-EPI 2020) 67.50 Glucose 128 H Calcium 9.7 Total Bilirubin 0.7 AST 27 ALT 27 Alkaline Phosphatase 74 Troponin I < 50 Total Protein 8.9 H Albumin 4.5 Lipase 39 Urine Color Yellow Urine Clarity Clear Urine pH 7.5 Ur Specific [place] 1.015 Urine Protein Negative Urine Ketones Negative Urine Blood Negative Urine Nitrite Negative Urine Bilirubin Negative Urine Urobilinogen 0.2 Ur Leukocyte Esterase Negative Urine Glucose Negative
--- NOTE | 2023-09-04 22:14 | DI.VRAD_ITS ---
PROCEDURE INFORMATION: Exam: XR Abdomen Exam date and time: 09/04/2023 9:35 PM Age: 72 years old Clinical indication: Device placement; Gi device; Nasogastric tube; Patient HX: Ng tube confirmation TECHNIQUE: Imaging protocol: Radiologic exam of the abdomen. Views: Frontal supine view of the abdomen. 1 View. COMPARISON: CR XR ABDOMEN FLAT PLATE 09/04/2023 8:59 PM FINDINGS: Tubes, catheters and devices: NG tube tip overlies stomach. Gastrointestinal tract: Normal. No bowel dilation. Bones/joints: Scoliosis and degenerative change of the spine. IMPRESSION: No acute finding. Dictated and Authenticated by: Eros Lowe MD. Ordering:SEB Casas MD
[2023-09-04] MEDS: HYDROmorphone 2 MG/ML SYR 1 MG IVP (22:22)
[2023-09-04] MEDS: ACETAMINOPHEN 1,000 MG/100 ML BTL 400 MG IVPB (22:42)
[2023-09-04] MEDS: Pantoprazole 40 MG VIAL IVP (22:43)
[2023-09-04] MEDS: Heparin 5,000 UNITS/ML VIAL 5000 UNITS SC (22:43)
[2023-09-04 23:08] LABS: Troponin I < 50 ng/L (< or =60)
[2023-09-04] MEDS: Lactated Ringers 1,000 ML 125 ML IV (23:42)
[2023-09-05] MEDS: Ondansetron 4 MG/2 ML VIAL IVP (00:30)
[2023-09-05 03:03] VITALS: BP 116/57; PULSE 78; RESP 18; TEMP 36.1; O2SAT 96
[2023-09-05] MEDS: ACETAMINOPHEN 1,000 MG/100 ML BTL 400 MG IVPB ×4 (04:12→22:16)
[2023-09-05 06:56] LABS: Anion Gap 8.5 mmol/L (3-11); BUN 8 mg/dL (7-18); CO2 25.5 mmol/L (21.0-32.0); CREATININE 0.8 mg/dL (0.55-1.02); Calcium 8.5 mg/dL (8.5-10.1); Chloride 103 mmol/L (98-107); Estimated GFR 77.75 (mL/min/1.73m2); Glucose 104 mg/dL (74-106); Potassium 4.2 mmol/L (3.5-5.1); Sodium 137 mmol/L (136-145)
[2023-09-05 07:00] VITALS: BP 141/95; PULSE 74; RESP 20; TEMP 36.6; O2SAT 100
[2023-09-05] MEDS: Lactated Ringers 1,000 ML 125 ML IV (08:06)
--- NOTE | 2023-09-05 08:33 | PGE_ITS ---
Date of Service Date of service: 09/05/23 Time of Service: 08:33 Assessment and Plan Assessment and plan (1) SBO (small bowel obstruction): Status: Acute Assessment and plan: 72-year-old woman with recurrent small bowel obstructions. She reports that this 1 has resolved subjectively and wants her NG tube removed. I removed it at the bedside. Her abdomen is soft and she has been having bowel function. There is no distention. I recommend operative intervention in the near future to prevent another recurrence. I have tentatively scheduled her for , 3 days from now. I had a long and detailed discussion with her and her at the bedside. I do not think this is an avoidable situation going forward. She is going to continue to have obstructions and it sounds like she has symptoms on a near?daily basis with her having some amount of food fear and trying to manipulate her diet such that she will not have another blockage. I have reviewed her prior CT scans. Her obstructions are always in the same location. There is clearly a pathologic segment of small bowel which is pretty distal. She has had prior open surgery and has had pelvic radiation. I did tell her that that segment/section of small bowel really probably simply needs to be resected although that can only be decided at the time of the operation. I recommend proceeding with an operation. She will clearly continue to get on and off obstructions. I recommend proceeding with an attempt at laparoscopic lysis of adhesions. She may warrant a mini?laparotomy and a small bowel resection but I am optimistic that a laparoscopic/minimally invasive attempt at this is possible. Overall plan: She wants to go home and she is not having any more pain and I have started her on clear liquids. She can be discharged later this afternoon and is being given an operative time on for exploration. Subjective Subjective Interval history since last seen: At the bedside the patient reports the obstruction has already passed. I have had 3 bowel movements this morning and I do not have any more pain. The NG tube does not put out much of anything since midnight. Exam Narrative Exam Narrative: General: Nontoxic, comfortable and interactive Neuro: Alert and oriented x 3 Psych: Good mood and affect, good insight and understanding into her conditions Abdomen: Soft, nondistended and nontender Objective Last Vital Signs Temp 97.9 F 09/05/23 07:00 Pulse 74 09/05/23 07:00 Resp 20 09/05/23 07:00 BP 141/95 H 09/05/23 07:00 Pulse Ox 100 09/05/23 07:00 Laboratory Results - last 24 hr 09/04/23 09/04/23 09/04/23 19:50 20:50 22:45 WBC 7.17 RBC 4.18 Hgb 14.6 Hct 40.6 MCV 97 H MCH 34.9 H MCHC 36.0 RDW 11.4 L Plt Count 196 MPV 9.0 Immature Gran % 0.3 Neutrophils % 80.1 Lymphocytes % 13.4 Monocytes % 3.8 Eosinophils % 2.0 Basophils % 0.4 Nucleated RBC % 0.0 Absolute Neutrophils 5.75 Absolute Lymphocytes 0.96 L Absolute Monocytes 0.27 Absolute Eosinophils 0.14 Absolute Basophils 0.03 VBG Lactate 1.2 Sodium 129 L Potassium 4.2 Chloride 95 L Carbon Dioxide 28.3 Anion Gap 5.7 BUN 15 Creatinine 0.9 Est GFR (CKD-EPI 2020) 67.50 Glucose 128 H Calcium 9.7 Total Bilirubin 0.7 AST 27 ALT 27 Alkaline Phosphatase 74 Troponin I < 50 < 50 Total Protein 8.9 H Albumin 4.5 Lipase 39 Urine Color Yellow Urine Clarity Clear Urine pH 7.5 Ur Specific [place] 1.015 Urine Protein Negative Urine Ketones Negative Urine Blood Negative Urine Nitrite Negative Urine Bilirubin Negative Urine Urobilinogen 0.2 Ur Leukocyte Esterase Negative Urine Glucose Negative 09/05/23 06:35 WBC RBC Hgb Hct MCV MCH MCHC RDW Plt Count MPV Immature Gran % Neutrophils % Lymphocytes % Monocytes % Eosinophils % Basophils % Nucleated RBC % Absolute Neutrophils Absolute Lymphocytes Absolute Monocytes Absolute Eosinophils Absolute Basophils VBG Lactate Sodium 137 Potassium 4.2 Chloride 103 Carbon Dioxide 25.5 Anion Gap 8.5 BUN 8 Creatinine 0.8 Est GFR (CKD-EPI 2020) 77.75 Glucose 104 Calcium 8.5 Total Bilirubin AST ALT Alkaline Phosphatase Troponin I Total Protein Albumin Lipase Urine Color Urine Clarity Urine pH Ur Specific [place] Urine Protein Urine Ketones Urine Blood Urine Nitrite Urine Bilirubin Urine Urobilinogen Ur Leukocyte Esterase Urine Glucose Time Spent with Patient Time Spent with Patient: 35-49 minutes Time was spent: preparing to see the patient(eg.review tests), indepentently interpreting results, counseling the patient and care coordination
--- NOTE | 2023-09-05 08:49 | INITIAL_ITS ---
Date of service: 09/05/23 Time of Service: 08:49 Care Management Initial Assmt Initial Assessment Reason for Hospitalization: SBO Functional Status/Living Situation Patient Presentation: Reyna was sitting in a chair and is accompanied by her when CM met with her. Reyna has a history of bowel obstructions and is planning on going to the OR for surgical intervention on . Per pt, she needs surgery because she has a narrowing in her bowel and the obstruction will keep coming back. Reyna reported to CM that she prefers to discharge home and have the procedure as an outpatient rather than here until . Town of Residence: [place] Resides with: Spouse (Mick) Significant Other/Family: Out of area (Her son Александр lives in [place]. ) Employment Status: Retired Instrumental Activities of Daily Living (ADLs): Independent Medications Medication Management: No Issues/Barriers identified Physical Functioning/Mobility Assistive Device: None Advance Directives Advance Directives: Do you have an Advance Directive: Y 02/13/19 10:16 AD On File at [facility]: Y 02/13/19 10:16 Date Asked AD Date Reviewed 09/04/23 09/04/23 22:57 COLST On File at [facility] No 05/13/23 19:57 COLST Date Scanned Code Status Resuscitation Status Full Code Portal Pt does not currently have a portal and education provided: Yes Insurance Coverage/Financial Issues Insurance: BC BS [place] ACO Member: Yes Care Team Visit Care Team Role Provider Type Reyna Abrams MD Primary Care Provider [facility] STAFF PHYSICIAN POLLY Franco Emergency Provider [facility] Blayne Villareal MD Admit Provider [facility] STAFF PHYSICIAN Attending Provider Discharge Potential Discharge Needs: PT Evaluation and PCP F/U Appt Anticipated Barriers to Discharge: None Identified Patient/Family Education Needs: Review discharge instructions, discuss Ask Me Three Transportation: Private vehicle Plan: Surgical Intervention of SBO needed ? inpt vs. outpt procedure to be determined. Anticipate Reyna will discharge home when medically ready. Follow up with community providers and her discharge plan of care as instructed. [facility] services, if indicated. [facility] All Active Problems (Updated 09/04/23 @ 22:02 by Blayne Villareal MD) SBO (small bowel obstruction) (Acute) Hypokalemia due to loss of potassium (Acute) Insomnia (Acute) Right hand paresthesia (Acute) HTN (hypertension) (Chronic) Chronic narcotic dependence (Chronic) changed from morphine to buprenorphine Therapeutic opioid induced constipation (Chronic) Pain from bone metastases (Chronic) hx ofmorphine ER; managed by [facility] [place] heme onc. Now on buprenorphine managed by CM. Radiation vulvitis (Chronic) Onychomycosis (Chronic) GERD (gastroesophageal reflux disease) (Chronic) Medical History History of radiation therapy Screening for malignant neoplasm of colon performed Hx SBO Multiple hospitalizations. [place] to be due to opioid-induced constipation. Resolves with bowel rest. 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 04/2011 Hyst and BSO at [facility] [place] Path= stage A1, Gr 11 Chronic hepatitis B (12/29/16) Multiple myeloma in remission on revlimid Surgical History History of colonoscopy (~10/2022) Hx of cataract surgery Hx of cholecystectomy S/P hysterectomy History of cholecystectomy H/O breast biopsy Right, 1o'clock, 12cm from nipple, US-guided needle core biopsy: negative for malignancy. fibroadipose tissue with assoc hemorrhage. Family History Mother , AGE 84 No problems noted. Father , AGE 92 No problems noted. Sister , AGE 79 No problems noted. Sister No problems noted. Brother , AGE 68 Stomach cancer Brother No problems noted. Brother No problems noted. Brother No problems noted. Brother No problems noted. Son No problems noted. 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 Pets and animals: No Sexually active: No Do you think of yourself as: straight/heterosexual Current gender identity: female What is your relationship status?: How often do you talk on the phone with friends or family?: three or more times per week How often do you get together with friends or relatives?: decline to answer How often do you attend spiritism or jainism services?: decline to answer Do you belong to any clubs or organized social groups?: no Panel score (0-1 are the most socially isolated patients): 2 What type of physical activity do you participate in: walking and running Duration: 30-45 minutes/day Frequency: 3-4 times per week Christianne/[employer] Special christianne needs: No Seatbelt use: always Drive 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 Drive intox or w/intox dinkey driver: rarely Working smoke detector in home: Yes Carbon monox detector in home: Yes Firearms in home: Yes Firearms unloaded and locked: Yes Do you feel safe at home: Yes Do you feel safe in your relationship?: Yes Victim of physical abuse: No Victim of emotional abuse: No Victim of sexual abuse: No Would you like helpful sources: No SDOH(Care Management) Screening Will the Patient Participate in the Screening?: Yes Do you worry about having a steady place to live?: no In the past 12 months, have you had to go without electric, gas, oil or water in your home?: no Have you or anyone in your house had to go without enough food to eat?: no Has lack of transportation kept you from medical appointments or from doing things needed for daily living?: no Has anyone in your support network made you feel unsafe for any reason?: no
[2023-09-05] MEDS: Heparin 5,000 UNITS/ML VIAL 5000 UNITS SC ×2 (10:32→22:17)
[2023-09-05] MEDS: Normal Saline Flush 10 ML SYR IVP ×2 (10:56→18:02)
--- NOTE | 2023-09-05 11:26 | PHA.REVIEW2 ---
Pharmacy Admission Review Admission Clinical Review Admission Pharmacy Review: (Updated 09/04/23 @ 22:02 by Blayne Villareal MD) SBO (small bowel obstruction) (Acute) iodine Allergy (Intermediate, Verified 05/20/23 13:12) rashes DUST Allergy (Unknown, Uncoded 05/20/23 13:12) sneezing MOLD AND SMUT Allergy (Unknown, Uncoded 05/20/23 13:12) respiratory Resuscitation Status Full Code Height 4 ft 11 in Weight 58.967 kg Comments Comments/Follow Ups: Surgery today Pharmacy Admission Review Renal Dosing Renal Dosing: BUN 8 mg/dL (7-18) 09/05/23 06:35 Creatinine 0.8 mg/dL (0.55-1.02) 09/05/23 06:35 Medications needing adjustments: Reviewed (CrCl 46.64 mL/min) List of meds needing interventions: Current medications are okay Anticoagulation Anticoagulation: Hgb 14.6 g/dL (11.2-15.7) 09/04/23 19:50 Hct 40.6 % (36.0-46.0) 09/04/23 19:50 Plt Count 196 10^3/uL (130-400) 09/04/23 19:50 Creatinine 0.8 mg/dL (0.55-1.02) 09/05/23 06:35 DVT Prophylaxis: Reviewed Medications: Heparin (q12h) Opiate Usage Evaluate Pain Scale/Pains Meds: Reviewed (PRN hydromorphone - no doses given so far) Scheduled Bowel Reg ordered if on Opiates?: No Relevant Labs Relevant Labs: Sodium 137 mmol/L (136-145) 09/05/23 06:35 Potassium 4.2 mmol/L (3.5-5.1) 09/05/23 06:35 Chloride 103 mmol/L (98-107) 09/05/23 06:35 Electrolytes, C-Reactive P, ESR: Reviewed Cardiac Review Cardiac Review: Troponin I < 50 ng/L (< or =60) 09/04/23 22:45 Blood Pressure 141/95 0700 Blood Pressure 116/57 0303 BP, HR, EF%: Reviewed (BP 141/95, HR WNL) QTc Review QTc: Reviewed (418 from 09/04/23) IV to PO Switch IV Medications: Reviewed (Patient NPO for surgery today) Home Meds Home Med List reviewed: Reviewed Relevent Home Meds Not ordered & why?: aspirin, buprenorphine, gabapentin, ibuprofen, lenalidomide, nystatin, omeprazole, Miralax, triamcinolone and valacyclovir No fill history shown except for buprenorphine, last filled 05/28 for 30 day supply Current Meds Current Medication Order Review: Reviewed Comments Comments/Follow Ups: Surgery today
--- NOTE | 2023-09-05 11:31 | NUR.NOTE ---
laborer driver removed NG tube with acute care certified nursing assistant and surgeons order. Nursing Note:
--- NOTE | 2023-09-05 12:17 | NUR.NOTE ---
Dr. Villareal removed NG tube with nursing services manager present and gave Cherelle to nursing services manager to give pt sips and chips. Will await orders. Nursing Note:
--- NOTE | 2023-09-05 14:12 | NUR.NOTE ---
Spoke to surgeon, who told pt she could go home tonight after tolerating a normal diet for dinner. Nursing Note:
[2023-09-05 15:15] VITALS: BP 144/84; PULSE 71; RESP 18; TEMP 36.4; O2SAT 100
--- NOTE | 2023-09-05 17:17 | ED.GENADUL_ITS ---
Discharge Plan Disposition Patient Disposition: Home Condition: Stable Discharge Details Clinical Impression: Complete small bowel obstruction Primary Care Provider: Reyna Abrams ED Provider: Yessenia Horvath Discharge Data Discharge Date/Time-TO BE ENTERED AT DEPARTURE: 09/04/23 23:02 HPI General Date/Time Provider Initiated Documentation: 09/04/23 19:43 . HPI Narrative: This 72-year-old female presents with vomiting and abdominal pain that came on abruptly at 1 PM today. History of bowel obstruction with a relatively recent cholecystectomy. Similar symptoms today. Denies any chest pain or shortness of breath. Denies any blood in vomitus. Denies fever or chills. Related Data Home Medications Medication Instructions Recorded Confirmed aspirin 81 mg chewable tablet 81 mg PO DAILY 08/19/14 09/04/23 (Aspirin Low-Strength) valacyclovir 500 mg tablet 500 mg PO BID #60 tabs 05/25/18 09/04/23 lenalidomide 5 mg capsule 5 mg PO DAILY 02/21/19 09/04/23 (Revlimid) omeprazole 40 mg capsule,delayed 40 mg PO DAILY PRN #90 tab-caps 02/21/19 09/04/23 release acetaminophen 500 mg tablet 1,000 mg (2 x 500 mg) PO Q8H PRN 08/02/22 09/04/23 PRN #60 tabs polyethylene glycol 3350 17 8.5 g PO HS #0 grams 11/13/22 09/04/23 gram/dose oral powder (Miralax) nystatin 100,000 unit/gram topical 1 applic topical BID #30 grams 03/02/23 09/04/23 cream triamcinolone acetonide 0.1 % 1 applic topical BID #30 grams 03/02/23 09/04/23 topical cream acetaminophen 325 mg tablet 325 mg PO ONCE PRN 04/05/23 07/29/23 ibuprofen 200 mg tablet 200 mg PO Q6H PRN 04/05/23 09/04/23 buprenorphine HCl 150 mcg buccal 150 mcg buccal Q12H #60 ea 05/20/23 09/04/23 film gabapentin 300 mg capsule 300 mg PO TID #270 caps 08/08/23 09/04/23 Previous Rx's Medication Instructions Recorded valacyclovir 500 mg tablet 500 mg PO BID #60 tabs 05/25/18 acetaminophen 500 mg tablet 1,000 mg (2 x 500 mg) PO Q8H PRN 08/02/22 PRN #60 tabs polyethylene glycol 3350 17 8.5 g PO HS #0 grams 11/13/22 gram/dose oral powder (Miralax) nystatin 100,000 unit/gram topical 1 applic topical BID #30 grams 03/02/23 cream triamcinolone acetonide 0.1 % 1 applic topical BID #30 grams 03/02/23 topical cream buprenorphine HCl 150 mcg buccal 150 mcg buccal Q12H #60 ea 05/20/23 film gabapentin 300 mg capsule 300 mg PO TID #270 caps 08/08/23 Allergies Allergy/AdvReac Type Severity Reaction Status Date / Time iodine Allergy Intermediate rashes Verified 05/20/23 13:12 DUST Allergy Unknown sneezing Uncoded 05/20/23 13:12 MOLD AND SMUT Allergy Unknown respiratory Uncoded 05/20/23 13:12 General Stated Complaint: Nausea/Vomit/Diar RCIKI: 3 Exam Narrative Exam Narrative: Alert and oriented female in acute distress,, pupils equal round reactive to light and accommodation, lungs clear to auscultation, cardiac rate rhythm regular, diffuse abdominal tenderness, alert and oriented, no peripheral edema Course Vital Signs Vital signs: Vital Signs Temperature 35.7 C L 09/04/23 19:40 Pulse 60 09/04/23 19:40 Respiratory Rate 18 09/04/23 19:40 Blood Pressure 150/53 H 09/04/23 19:40 Pulse Oximetry 100 09/04/23 19:40 Temperature 36.4 C L 09/05/23 15:15 Temperature Source Tympanic 09/05/23 15:15 Pulse 71 09/05/23 15:15 Pulse Rhythm Regular 09/05/23 16:23 Pulse 76 09/04/23 22:50 Respiratory Rate 18 09/05/23 15:15 Respiratory Effort Normal 09/05/23 16:23 Respiratory Depth Normal 09/05/23 16:23 Respiratory Pattern Normal 09/05/23 16:23 Blood Pressure 144/84 H 09/05/23 15:15 Blood Pressure Mean 91 09/04/23 22:45 Blood Pressure Position Sitting 09/04/23 19:40 Pulse Oximetry 100 09/05/23 15:15 Oxygen Delivery Method Room Air 09/05/23 15:15 Oxygen Flow Rate 0 09/05/23 15:15 Pain Level 0 09/05/23 15:15 Lab/Test Results Lab/Test Results: Laboratory Tests Range/Units 09/04/23 09/04/23 19:50 20:50 WBC (4.4-10.8) 10^3/uL 7.17 RBC (3.93-5.22) 10^6/uL 4.18 Hgb (11.2-15.7) g/dL 14.6 Hct (36.0-46.0) % 40.6 MCV (80-95) fL 97 H MCH (27.0-33.0) pg 34.9 H MCHC (32.0-36.0) % 36.0 RDW (11.7-14.6) % 11.4 L Plt Count (130-400) 10^3/uL 196 MPV (8.0-11.0) fL 9.0 Immature Gran % % 0.3 Neutrophils % % 80.1 Lymphocytes % % 13.4 Monocytes % % 3.8 Eosinophils % % 2.0 Basophils % % 0.4 Nucleated RBC % (0.0-0.3) % 0.0 Absolute Neutrophils (1.2-6.7) 10^3/uL 5.75 Absolute Lymphocytes (1.2-3.4) 10^3/uL 0.96 L Absolute Monocytes (0.1-0.8) 10^3/uL 0.27 Absolute Eosinophils (0.0-0.7) 10^3/uL 0.14 Absolute Basophils (0.0-0.2) 10^3/uL 0.03 VBG Lactate (0.6-1.4) mmol/L 1.2 Sodium (136-145) mmol/L 129 L Potassium (3.5-5.1) mmol/L 4.2 Chloride (98-107) mmol/L 95 L Carbon Dioxide (21.0-32.0) mmol/L 28.3 Anion Gap (3-11) mmol/L 5.7 BUN (7-18) mg/dL 15 Creatinine (0.55-1.02) mg/dL 0.9 Est GFR (CKD-EPI 2020) (mL/min/1.73m2) 67.50 Glucose (74-106) mg/dL 128 H Calcium (8.5-10.1) mg/dL 9.7 Total Bilirubin (0.2-1.0) mg/dL 0.7 AST (15-37) U/L 27 ALT (14-59) U/L 27 Alkaline Phosphatase (46-116) U/L 74 Troponin I (< or =60) ng/L < 50 Total Protein (6.4-8.2) g/dL 8.9 H Albumin (3.4-5.0) g/dL 4.5 Lipase (16-77) U/L 39 Urine Color (Yellow) Yellow Urine Clarity (Clear) Clear Urine pH (5-8) 7.5 Ur Specific [place] (1.005-1.025) 1.015 Urine Protein (Neg-Trace) mg/dL Negative Urine Ketones (Negative) mg/dL Negative Urine Blood (Negative) Negative Urine Nitrite (Negative) Negative Urine Bilirubin (Negative) Negative Urine Urobilinogen (Up to 0.2) mg/dL 0.2 Ur Leukocyte Esterase (Negative) Negative Urine Glucose (Negative) mg/dL Negative Medical Decision Making This 72-year-old female presents with acute distress, concern for bowel obstruction presenting similarly several months ago. CT was ordered for further evaluation, CT with evidence of right lower quadrant obstruction, transition point. NG tube was placed by nursing staff, patient tolerated this without incident. This was atraumatic but there is some scant pink blood noted, Gastroccult positive but patient denies any history of GI bleed or history of alcohol use. Feeling mild improvement but still requesting pain medication and still seemingly uncomfortable. Diagnostic labs indicate that patient is hemodynamically stable, CT was results with , will admit to his service. Does not recommend Protonix at this time. Patient agreeable to admission, NG tube that was placed to low intermittent suction, approximately 500 cc of drainage thus far. Quality:SDOH Health Related Social Needs: Health related social needs risk of homeless Critical Care Time Critical Care Time Attestation: 35 minutes of critical care time secondary to acute bowel obstruction requiring NG tube placement and surgical consultation, CT interpretation and review, telemetry monitoring and ultimately admission to the hospital [facility] All Active Problems (Updated 09/05/23 @ 17:22 by POLLY Franco) Complete small bowel obstruction (Acute) SBO (small bowel obstruction) (Acute) Hypokalemia due to loss of potassium (Acute) Insomnia (Acute) Right hand paresthesia (Acute) HTN (hypertension) (Chronic) Chronic narcotic dependence (Chronic) changed from morphine to buprenorphine Therapeutic opioid induced constipation (Chronic) Pain from bone metastases (Chronic) hx ofmorphine ER; [place] [facility] [place] Now on buprenorphine managed by CM. Radiation vulvitis (Chronic) Onychomycosis (Chronic) GERD (gastroesophageal reflux disease) (Chronic) Medical History History of radiation therapy Screening for malignant neoplasm of colon performed Hx SBO Multiple hospitalizations. [place] to be due to opioid-induced constipation. Resolves with bowel rest. 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 04/2011 [place]st [place] [facility] Path= stage A1, Gr 11 Chronic hepatitis B (12/29/16) Multiple myeloma in remission on revlimid Surgical History History of colonoscopy (~10/2022) Hx of cataract surgery Hx of cholecystectomy S/P hysterectomy History of cholecystectomy H/O breast biopsy Right, 1o'clock, 12cm from nipple, US-guided needle core biopsy: negative for malignancy. fibroadipose tissue with assoc hemorrhage. Family History Mother , AGE 84 No problems noted. Father , AGE 92 No problems noted. Sister , AGE 79 No problems noted. Sister No problems noted. Brother , AGE 68 Stomach cancer Brother No problems noted. Brother No problems noted. Brother No problems noted. Brother No problems noted. Son No problems noted. 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 Pets and animals: No Sexually active: No Do you think of yourself as: straight/heterosexual Current gender identity: female What is your relationship status?: How often do you talk on the phone with friends or family?: three or more times per week How often do you get together with friends or relatives?: decline to answer How often do you attend yarsanism or jainism services?: decline to answer Do you belong to any clubs or organized social groups?: no Panel score (0-1 are the most socially isolated patients): 2 What type of physical activity do you participate in: walking and running Duration: 30-45 minutes/day Frequency: 3-4 times per week Christianne/Mormonism: Zoroastrianism Special christianne needs: No Seatbelt use: always Drive intox or ride w/intox bung driver: Yes Drive intox or w/intox bung driver: rarely Working smoke detector in home: Yes Carbon monox detector in home: Yes Firearms in home: Yes Firearms unloaded and locked: Yes Do you feel safe at home: Yes Do you feel safe in your relationship?: Yes Victim of physical abuse: No Victim of emotional abuse: No Victim of sexual abuse: No Would you like helpful sources: No
--- NOTE | 2023-09-05 17:37 | NUR.NOTE ---
Pt BP high, she states that she has been uncomfortable since morphine was taken away. She has pain in her mid abdomen that comes and goes, sharp. 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 Nursing Note:
[2023-09-05 17:38] VITALS: BP 178/88; PULSE 75; RESP 18; TEMP 36.8; O2SAT 100
[2023-09-05] MEDS: HYDROmorphone 2 MG/ML SYR 0.5 MG IVP (18:01)
[2023-09-05 19:31] VITALS: BP 179/87; PULSE 74; RESP 20; TEMP 36.6; O2SAT 98
[2023-09-05] MEDS: Lactated Ringers 1,000 ML 75 ML IV (21:00)
[2023-09-05] MEDS: Pantoprazole 40 MG VIAL IVP (22:16)
[2023-09-05 23:18] VITALS: BP 149/70; PULSE 73; RESP 16; TEMP 36.7; O2SAT 94
[2023-09-06] MEDS: ACETAMINOPHEN 1,000 MG/100 ML BTL 400 MG IVPB (04:13)
[2023-09-06 07:13] VITALS: BP 152/82; PULSE 80; RESP 18; TEMP 37.2; O2SAT 97
--- NOTE | 2023-09-06 09:32 | NUR.NOTE ---
Per discussion with surgeon, pt will dc this morning, become NPO at midnight tomorrow night for surgery . Nursing Note:
--- NOTE | 2023-09-06 09:40 | DSE_ITS ---
Date of service: 09/06/23 Time of Service: 09:40 DS: Diagnosis Discharge Diagnosis (1) SBO (small bowel obstruction): Status: Acute Asessment and Plan: Passing bowel movements and passing gas. She says her abdominal pain is gone. Tolerating p.o. intake without vomiting. Discharge Plan Disposition Patient Disposition: Home Condition: Stable Condition: Good Discharge Details Reason For Visit: SBO Admit Date/Time: 09/04/23 22:06 Admit Provider: Blayne Villareal Attending Provider: Blayne Villareal Primary Care Provider: Reyna Abrams Home Meds and New Rx's Prescriptions: No Action lenalidomide [Revlimid] 5 mg capsule 5 mg PO DAILY ibuprofen 200 mg tablet 200 mg PO Q6H PRN acetaminophen 325 mg tablet 325 mg PO ONCE PRN nystatin 100,000 unit/gram cream 1 applic TP BID Qty: 30 1RF Patient Comments: not taking per pt triamcinolone acetonide 0.1 % cream 1 applic TP BID Qty: 30 1RF Patient Comments: pt not sure if taking buprenorphine HCl 150 mcg film 150 mcg buccal Q12H Qty: 60 3RF Patient Comments: pt not sure if still taking omeprazole 40 mg capsule,delayed release(DR/EC) 40 mg PO DAILY PRNQty: 90 Patient Comments: 04/09/16 takes prn. md gabapentin 300 mg capsule 300 mg PO TID Qty: 270 3RF Hold Instructions: Changed by Provider aspirin [Aspirin Low-Strength] 81 MG tablet,chewable 81 mg PO DAILY Patient Comments: 09-21-17 pt reports that she takes this med every other day. hb polyethylene glycol 3350 [Miralax] 17 gram/dose powder 8.5 g PO HS Qty: 0 0RF Rx Instructions: take a dose at bedtime if no BM during the day valacyclovir 500 mg tablet 500 mg PO BID Qty: 60 3RF acetaminophen 500 mg Tablet 1,000 mg PO Q8H PRN PRNQty: 60 0RF Hold Instructions: Changed by Provider Discharge Instructions Additional Instructions: You will get called for the time of your surgery which will be morning. You can eat regular food as tolerated for the next 2 days. Do not eat anything after Tuesday night midnight. Stay hydrated. Activity:: Activity as Tolerated Equipment/Supplies:: No Equipment Needed Diet:: As Tolerated DS: Summary Time Spent with Patient providing and/or coordinating discharge services: Greater than 30 minutes Status at Discharge Functional status at discharge: independent ambulation Overall status at discharge: patient is back to baseline Mental Status: mental status grossly normal Speech and Movement: speech and movement normal Mood: congruent mood Affect: normal affect Quality:SDOH Health Related Social Needs: Health related social needs risk of homeless Exam Narrative Exam Narrative: General: Nontoxic, comfortable and interactive Neuro: Alert and oriented x 3 Psych: Good mood and affect, good insight and understanding Abdomen: Soft, nondistended and nontender Psych Mental Status: mental status grossly normal Speech and Movement: speech and movement normal Mood: congruent mood Affect: normal affect DS: Data Vitals/I&O Vitals and I&O: Vital Signs Temperature 99.0 F 09/06/23 07:13 Temperature Source Tympanic 09/06/23 07:13 Pulse 80 09/06/23 07:13 Pulse Rhythm Regular 09/06/23 08:19 Pulse 76 09/04/23 22:50 Respiratory Rate 18 09/06/23 07:13 Respiratory Effort Normal 09/06/23 08:19 Respiratory Depth Normal 09/06/23 08:19 Respiratory Pattern Normal 09/06/23 08:19 Blood Pressure 152/82 H 09/06/23 07:13 Blood Pressure Mean 91 09/04/23 22:45 Blood Pressure Position Sitting 09/04/23 19:40 Pulse Oximetry 97 09/06/23 07:13 Oxygen Delivery Method Room Air 09/06/23 07:13 Oxygen Flow Rate 0 09/06/23 07:13 Pain Level 6 09/06/23 07:13 Comment pT stated that she can't get comfortable. 09/06/23 07:13 Intake & Output 09/05/23 09/05/23 09/06/23 11:59 23:59 11:59 Intake Total 1200 / 2920.0 1720.0 / 2920.0 1338.75 / 1338.75 Output Total 1680 / 3080 1400 / 3080 400 / 400 Balance -480 / -160.0 320.0 / -160.0 938.75 / 938.75 Intake: IV 1200 / 2400.0 1200.0 / 2400.0 938.75 / 938.75 Oral 520 / 520 400 / 400 Output: Gastric Drainage 80 / 80 Left Nare 80 / 80 Urine 1600 / 3000 1400 / 3000 400 / 400 Other: Urine Color Pale Yellow Yellow Yellow Urine Appearance Clear Clear Clear Urine Odor None None Normal Comment voided with stool Stool Size Moderate Small Stool Characteristics Soft Formed Liquid Voiding Methods Bedside Commode Bedside Commode Bedside Commode [facility] All Active Problems (Updated 09/05/23 @ 17:22 by POLLY Franco) Complete small bowel obstruction (Acute) SBO (small bowel obstruction) (Acute) Hypokalemia due to loss of potassium (Acute) Insomnia (Acute) Right hand paresthesia (Acute) HTN (hypertension) (Chronic) Chronic narcotic dependence (Chronic) changed from morphine to buprenorphine 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 Now on buprenorphine managed by CM. Radiation vulvitis (Chronic) Onychomycosis (Chronic) GERD (gastroesophageal reflux disease) (Chronic) Medical History History of radiation therapy Screening for malignant neoplasm of colon performed Hx SBO Multiple hospitalizations. [place] to be due to opioid-induced constipation. Resolves with bowel rest. 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 04/2011 Hyst and BSO at [facility] Path= stage A1, Gr 11 Chronic hepatitis B (12/29/16) Multiple myeloma in remission on revlimid Surgical History History of colonoscopy (~10/2022) Hx of cataract surgery Hx of cholecystectomy S/P hysterectomy History of cholecystectomy H/O breast biopsy Right, 1o'clock, 12cm from nipple, US-guided needle core biopsy: negative for malignancy. fibroadipose tissue with assoc hemorrhage. Family History Mother , AGE 84 No problems noted. Father , AGE 92 No problems noted. Sister , AGE 79 No problems noted. Sister No problems noted. Brother , AGE 68 Stomach cancer Brother No problems noted. Brother No problems noted. Brother No problems noted. Brother No problems noted. Son No problems noted. 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 Pets and animals: No Sexually active: No Do you think of yourself as: straight/heterosexual Current gender identity: female What is your relationship status?: How often do you talk on the phone with friends or family?: three or more times per week How often do you get together with friends or relatives?: decline to answer How often do you attend scientologist or mu-ism services?: decline to answer Do you belong to any clubs or organized social groups?: no Panel score (0-1 are the most socially isolated patients): 2 What type of physical activity do you participate in: walking and running Duration: 30-45 minutes/day Frequency: 3-4 times per week Christianne/Orthodox: Druze Special christianne needs: No Seatbelt use: always Drive intox or ride w/intox dump truck driver: 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
--- NOTE | 2023-09-06 10:02 | PDOC.CMDIS ---
Date of service: 09/06/23 Time of Service: 10:02 LACE Index Scoring Tool Questions: Length of Stay (in days): 2 Was the patient admitted via the E.D.?: Yes Comorbidities: Metastatic Solid Tumor (Multiple Myeloma ) E.D. Visits: 3 Answers: Total Score: 13 Risk of Readmission: High Risk Care Management Discharge Plan Reason for Hospitalization: Small [place] Obstruction Discharge Plan: Vi is discharged home via private vehicle with her . Vi will follow up with community providers and her discharge plan of care as instructed. Surgical intervention is planned on . No new services are ordered prior to discharge. Patient/Family Education Needs: Review discharge instructions, limitations, medications and plan to follow up with community providers. Discuss ask me three. SDOH Health Related Social Needs: Health related social needs risk of homeless
== END 2023-09-06 10:15 | disposition home or self-care (01) | DRG 389 ==
LOC: ER 19:47 → MS 22:57
PROVIDERS: Admitting Provider Student in an Organized Health Care Education/Training Program; Emergency Provider Physician Assistant; PCP Family Medicine; Visit Provider Student in an Organized Health Care Education/Training Program
DX: K56.601 Complete intestinal obstruction, unspecified as to cause (principal); B18.1 Chronic viral hepatitis B without delta-agent; C79.51 Secondary malignant neoplasm of bone; C90.01 Multiple myeloma in remission; E87.6 Hypokalemia; G47.00 Insomnia, unspecified; I10 Essential (primary) hypertension; K59.03 Drug induced constipation; K21.9 Gastro-esophageal reflux disease without esophagitis; B35.1 Tinea unguium; Z79.891 Long term (current) use of opiate analgesic; L40.9 Psoriasis, unspecified; Z86.13 Personal history of malaria; Z85.42 Personal history of malignant neoplasm of other parts of uterus
CPT/HCPCS: 00123; 36415; 80048; 80053; 83690; 93005; 96361; 96365; 96372; 96375; 96376; 99222; 99232; 99238; 99291; 71046; 74018; 74177; 81003; 83605; 84484; 85025; 93010; J0131; J1170; J1644; J2405; J2470; J3490

== ENCOUNTER 2023-09-08 14:50 | Observation (INO) | payer MEDICARE, BC, SELFPAY ==
[2023-09-08] VITALS (42 sets, daily range): BP systolic 96–171; BP diastolic 53–77; PULSE 51–90; RESP 0–20; TEMP 36.1–37.5; O2SAT 93–100; BMI 24.5
[2023-09-08] MEDS: Acetaminophen 500 MG TAB 1000 MG PO (08:33)
[2023-09-08] MEDS: Lactated Ringers 1,000 ML 75 ML IV ×2 (08:33→16:24)
[2023-09-08] MEDS: metroNIDAZOLE 500 MG/100 ML BAG 100 MG IVPB (08:33)
[2023-09-08] MEDS: Heparin 5,000 UNITS/ML VIAL 5000 UNITS SC ×3 (08:34→23:54)
--- NOTE | 2023-09-08 09:21 | W.ANESPRE ---
General Info Date of Service Date Performed: 09/08/23 Height: 4 ft 11 in Weight: 55 kg Body Mass Index (BMI): 24.5 Surgical Procedure: Operation Date: 09/08/23 10:40 Proposed Procedure Side Surgeon p Lysis of Adhesions Laparoscopic Blayne Villareal MD Meds Allergies and Home Medications Allergies Allergy/AdvReac Type Severity Reaction Status Date / Time iodine Allergy Intermediate rashes Verified 09/08/23 08:11 DUST Allergy Unknown sneezing Uncoded 09/08/23 08:11 MOLD AND SMUT Allergy Unknown respiratory Uncoded 09/08/23 08:11 Home Medication Medication Instructions Recorded aspirin 81 mg chewable tablet 81 mg PO DAILY 08/19/14 (Aspirin Low-Strength) valacyclovir 500 mg tablet 500 mg PO BID #60 tabs 05/25/18 lenalidomide 5 mg capsule 5 mg PO DAILY 02/21/19 (Revlimid) omeprazole 40 mg capsule,delayed 40 mg PO DAILY PRN #90 tab-caps 02/21/19 release acetaminophen 500 mg tablet 1,000 mg (2 x 500 mg) PO Q8H PRN 08/02/22 PRN #60 tabs polyethylene glycol 3350 17 8.5 g PO HS #0 grams 11/13/22 gram/dose oral powder (Miralax) nystatin 100,000 unit/gram topical 1 applic topical BID #30 grams 03/02/23 cream triamcinolone acetonide 0.1 % 1 applic topical BID #30 grams 03/02/23 topical cream acetaminophen 325 mg tablet 325 mg PO ONCE PRN 04/05/23 ibuprofen 200 mg tablet 200 mg PO Q6H PRN 04/05/23 buprenorphine HCl 150 mcg buccal 150 mcg buccal Q12H #60 ea 05/20/23 film gabapentin 300 mg capsule 300 mg PO TID #270 caps 08/08/23 Current Visit Medications: Current Medications Generic Name Dose Route Start Last Admin Trade Name Freq PRN Reason Stop Dose Admin Acetaminophen 1,000 mg 09/08/23 06:00 09/08/23 08:33 Acetaminophen 500 Mg Tab PO 09/08/23 23:59 1,000 mg PREOP YESSENIA Administration Heparin Sodium (Porcine) 5,000 units 09/08/23 06:00 09/08/23 08:34 Heparin 5,000 Units/Ml Vial SC 09/08/23 23:59 5,000 units PREOP YESSENIA Administration Ringer's Solution 1,000 mls @ 75 mls/hr 09/08/23 06:00 09/08/23 08:33 IV 09/08/23 23:59 75 mls/hr INFUSION YESSENIA Administration Cefazolin Sodium/Dextrose 2 gm in 50 mls @ 100 mls/hr 09/08/23 06:00 Ancef Duplex IVPB 09/08/23 23:59 PREOP YESSENIA Metronidazole 500 mg in 100 mls @ 100 mls/hr 09/08/23 06:00 09/08/23 08:33 Flagyl IVPB 09/08/23 23:59 100 mls/hr PREOP YESSENIA Administration IV Miscellaneous Supplies 1 each 09/08/23 06:00 Iv Access IV 09/08/23 23:59 DIRECTED YESSENIA Sodium Chloride 0 ml 09/08/23 06:00 Normal Saline Flush 10 Ml Syr IV 09/08/23 23:59 PRN PRN Sodium Chloride 0 ml 09/08/23 06:00 Normal Saline 10 Ml Vial IJ 09/08/23 23:59 DIRECTED PRN Sterile Water 0 ml 09/08/23 06:00 Water,Injection,Sterile 10 Ml Vial IJ 09/08/23 23:59 DIRECTED PRN PFSH Active Problems Active Problems: Problem Status Onset Code Complete small bowel obstruction K56.601 SBO (small bowel obstruction) K56.609 Hypokalemia due to loss of potassium E87.6 Insomnia G47.00 Right hand paresthesia R20.2 HTN (hypertension) I10 Chronic narcotic dependence F11.20 Therapeutic opioid induced constipation K59.03, T40.2X5A Pain from bone metastases G89.3, C79.51 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 [place] to be due to opioid-induced constipation. Resolves with bowel rest. 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 04/[address] [facility] Path= stage A1, Gr 11 Chronic hepatitis B (12/29/16) Multiple myeloma in remission on revlimid Surgical History Surgical History History of colonoscopy (~10/2022) Hx of cataract surgery Hx of cholecystectomy S/P hysterectomy History of cholecystectomy H/O breast biopsy Right, 1o'clock, 12cm from nipple, US-guided needle core biopsy: negative for malignancy. fibroadipose tissue with assoc hemorrhage. Tobacco Smoking/Tobacco Use Status: Never Passive smoking exposure: Yes Second hand exposure: Yes Alcohol Alcohol Intake: never Substance Use Substance use: Never Substance use type: does not use Vital Signs and Lab Results Vital Signs Most Recent Vital Signs in EMR: Most Recent Vital Signs Temp Pulse Resp BP Pulse Ox 36.5 C 67 16 135/75 98 09/08/23 08:26 09/08/23 08:26 09/08/23 08:26 09/08/23 08:26 09/08/23 08:26 Lab Results Blood Type / Crossmatch: No Data to Display Complete Blood Count: White Blood Count 7.17 10^3/uL (4.4-10.8) 09/04/23 19:50 Red Blood Count 4.18 10^6/uL (3.93-5.22) 09/04/23 19:50 Hemoglobin 14.6 g/dL (11.2-15.7) 09/04/23 19:50 Hematocrit 40.6 % (36.0-46.0) 09/04/23 19:50 Platelet Count 196 10^3/uL (130-400) 09/04/23 19:50 Venous Blood Lactate 1.2 mmol/L (0.6-1.4) 09/04/23 19:50 Complete Metabolic Panel: Sodium 137 mmol/L (136-145) 09/05/23 06:35 Potassium 4.2 mmol/L (3.5-5.1) 09/05/23 06:35 Chloride 103 mmol/L (98-107) 09/05/23 06:35 Carbon Dioxide 25.5 mmol/L (21.0-32.0) 09/05/23 06:35 BUN 8 mg/dL (7-18) 09/05/23 06:35 Creatinine 0.8 mg/dL (0.55-1.02) 09/05/23 06:35 Est GFR (CKD-EPI 2020) 77.75 (mL/min/1.73m2) 09/05/23 06:35 Calcium 8.5 mg/dL (8.5-10.1) 09/05/23 06:35 Albumin 4.5 g/dL (3.4-5.0) 09/04/23 19:50 Glucose 104 mg/dL (74-106) 09/05/23 06:35 Liver Function Panel: Alanine Aminotransferase (ALT/SGPT) 27 U/L (14-59) 09/04/23 19:50 Aspartate Amino Transf (AST/SGOT) 27 U/L (15-37) 09/04/23 19:50 Coagulation Panel: No Data to Display Cardiac Panel: Troponin I < 50 ng/L (< or =60) 09/04/23 Arterial Blood Gas: No Data to Display Venous Blood Gas: No Data to Display Pancreas Panel: Lipase 39 U/L (16-77) 09/04/23 19:50 Thyroid Panel: No Data to Display Infectious Disease: No Data to Display Blood Cultures: No Data to Display Toxicology Panel: No Data to Display Imaging and Studies Imaging and Studies Study information below may be from another EMR and interpreted by another provider. Please see original notes in EMR for more complete details. EKG Summary: EKG PATIENT NAME: Ned Haskins #: [id number] ORDERING PROVIDER: David King M.D. PRIMARY CARE PROVIDER:SARAH BETH CORTES MD DATE/TIME OF SERVICE: 09/23/21 1211 : 1950PERFORMING LOCATION: [place] APPROVED REPORT Exam: Resting ECG Reason for Exam: abd pain Patient Location: E HR:65 bpm ECG Measurements Heart Rate 65 AXIS [place] 150 P 34 QRSd 105 QRS 7 QT 438 T18 QTc 455 Conclusion Sinus rhythm...normal P axis, V-rate 60- 99 Probable left ventricular hypertrophy...multiple LVH criteria <Electronically signed by DAVID KING MD in OV> E-Sign Date: 09/23/21 E-Sign Time: 1213 ADDENDUM APPROVED REPORT Exam: Resting ECG Reason for Exam: abd pain Patient Location: E HR:65 bpm ECG Measurements Heart Rate 65 AXIS [place] 150 P 34 QRSd 105 QRS 7 QT 438 T18 QTc 455 Conclusion Sinus rhythm...normal P axis, V-rate 60- 99 Probable left ventricular hypertrophy...multiple LVH criteria I have reviewed and I agree with the emergency room physician's ECG interpretation. Electronically signed by: <Electronically signed by Marilu Marks M.D. in OV> 09/24/21 0835 Cosigned by: Anesthesia Assessment and Plan Anesthesia History Personal History: No History of Anesthesia Complications Family History: No Family History of Anesthesia Complications Exercise Tolerance Exercise Tolerance: Metabolic Equivalents>4 Pertinent Negatives Pertinent Negatives: No Symptoms of GERD (controlled with meds PRN), No Major Cardiovascular Symptoms or Complaints, No Major Pulmonary Symptoms or Complaints and No History of CVA/TIA Cardiac & Pulmonary Exam Cardiac Exam: Normal S1/S2 Heart Sounds Pulmonary Exam: Clear Bilateral Breath Sounds Implantable Cardiac Device Does patient have a Pacemaker or an ICD?: No Airway Exam Known Difficult Airway: No Mallampati Class: 2 Mouth Opening: Normal (> 3cm) Thyromental Distance: Greater than 3 cm Neck Range of Motion: Full ROM Neck Circumference: Normal Teeth Condition: Normal Dentition and Removable Dentures/Plates Upper (Left at home upper partial) ASA Classification ASA Score: ASA 2 Emergency Case?: No NPO Status NPO Status: NPO Clears >2 hours, Solids >8 hours Anesthesia Plan Resuscitation Status: Full Code Anesthesia Technique: General Anesthesia Airway Planned: Endotracheal Tube Pain Management: Surgeon and patient request nerve block Monitors Used: Standard Monitors Preoperative Comments:: GETA with corie TAP blocks for post op pain
[2023-09-08] MEDS: ceFAZolin 2 GM/50 ML BAG IVPB (11:03)
[2023-09-08] MEDS: Bupivacaine 0.25% Pres-Free 10 ML VIAL (11:41)
--- NOTE | 2023-09-08 12:17 | APP_PTH ---
PATIENT: Reyna Haskins LOC: [place] Quintana#:[id number] AGE/SX: 72/F ROOM: RE09/08/[address]: Blayne Villareal : 1950 BED: A DIS: 09/11/2023 SPEC #: [id number] RECD: 09/08/23 18:25 STATUS: [facility] #: [id number] ARACELI: 09/08/23 12:[address]: Blayne Villareal DEPT: Surgical Specimen RECD BY: Yessenia Landry ENTERED: 09/08/23 18:27 SP TYPE: Appendix OTHR DR: Reyna Abrams Tissues: 1 - APPENDIX INCIDENTAL 2 - BIOPSY BOWEL 3 - BOWEL RESECTION(OTHER) Procedures: GROSS AND MICRO LEVEL 4 GROSS AND MICRO LEVEL 5 GROSS AND MICRO LEVEL 3 Comments: [id number]
--- NOTE | 2023-09-08 13:45 | W.ANESNERVE ---
Nerve Block Single Injection Procedure Date and Time Date Performed: 09/08/23 Procedure Start: 11:06 Location Where Procedure Performed Procedure Location: Operating Room Procedure Stop: 11:18 Reason Performed: Postoperative Analgesia Requesting Provider: Blayne Villareal Timeout Performed Timeout Performed: Yes Monitoring Used ECG, Blood Pressure, SpO2, ETCO2 and See EMR for corresponding vital signs Sterility Sterility: Hand Hygiene, Surgical Cap, Surgical Mask, Sterile Gloves, Sterile Drape/Sheet and Chlorhexidine Sedation Given During Procedure Sedation Given (Indicate Dose Given): No Sedation given Patient Mental Status Patient Mental Status: Performed under general anesthesia Nerve Block 1st Nerve Block: Laterality: Bilateral Block Type: TAP Bilateral Ultrasound Image Saved?: Yes Needle / Catheter Used: 100mm SonoPlex II Local Anesthetic Bolus (Indicate Dose Given): Injected in 3-5ml increments after negative blood aspiration, Half of Total block solution given into each side, Bupivacaine 0.25% Dose:: 30 ml and Exparel Dose:: 20 ml Additives (Indicate Dose Given): None Ultrasound: Sterile probe cover and gel used Nerve Stimulator: Not Used Paresthesia: None Procedure Tolerated: No Complications Procedure Outcome: Successful Performed By: Jennifer Brown
--- NOTE | 2023-09-08 14:49 | ROE_ITS ---
Date of service: 09/08/23 Time of Service: 14:49 Operative Note Operative Note Refer to Anesthesia Record Procedure Description: Procedures: 1. Diagnostic laparoscopy 2. Laparoscopic lysis of adhesions 3. Laparoscopic enterectomy 4. Laparoscopic Enteroenterostomy 5. Laparoscopic Appendectomy Preoperative Diagnosis: Chronic Small bowel obstruction Postoperative Diagnosis: Ileum stricture, chronic appendicitis, intra-abdominal adhesions Surgeon: Nesha Villareal Assist: None Anesthesia: General Anesthesiologist: Shahana Indication: 72 yo woman with recurrent small bowel obstructions at the same location each time. History of prior open surgeries and pelvic radiation. Decision made to operate before another acute obstruction happens. Findings: Focal ileum stricture easily identified - unknown etiology(mass vs ischemic/radiation). Small bowel resection performed, [id number] anastomosis created. Appendix inspected and did not appear normal or feel normal. Very hard and thickened at the end with adhesions. Radiation injury vs mass. Appendectomy performed. Omental adhesions to RUQ abdominal wall lysed to release the omentum to [place] anatomical location/lay. Lesion/stud on the terminal ileum biopsied. Complications: None Estimated Blood Loss: 10cc Urine Output: Not measured Specimens removed: 1. Segmental ileum resection with stricture/mesentery 2. Appendix 3. Terminal Ileum /lesion/stud biopsy Grafts or implants: None Procedure in detail: Written consent was obtained from the patient who was in agreement the risks, the likely benefits and indications for the procedure. The patient was taken to the operating suite and laid supine on the operating table with left arm tucked. Preoperative antibiotic prophylaxis were given because of anticipated bowel resection. Venodynes were in place. Heparin subcutaneous had been given. General anesthesia was administered which was tolerated very well. Anesthesia performed an U/S-guided TAP block(see their notes for details). Next we prepped and draped the abdomen in sterile fashion. A timeout was performed. When we were all in agreement we began the procedure. Just below the left costal margin, a small stab incision was made and a 5mm optiview trocar was used to enter and to insufflate the abdomen. The patient tolerated this well. Four-quadrant diagnostic laparoscopy was performed with the findings noted above. Another 5mm port was placed in the umbilicus and a 12mm port placed suprapubic. The reason for the stricture that was easily found was unclear. It was firm to palpation and very obvious. No mesenteric lymph nodes of concern associated. It was somewhat near the appendix which felt very hard and thickened in the distal third. Adhesions were present here. I was concerned it may be a small appendix mass, though maybe simply seconary to the prior radiation history. In any event, the appendix was not normal and I decided to remove it. This was then removed from the abdomen with an endocatch bag. Next, I used a Ligasure to divide the small bowel mesentery about 5cm on either side of the stricture. I ensured I took a ~5cm wedge of associated mesentery below it though no lymph ndes were palable or visible. Next I used the EndoGIA and divided the small bowel distal and proximal. The specimen was removed from the peritoneal cavity with another endocatch bag. I performed a [id number] anastomosis with the EndoGIA in usual fashion and closed the common enterotomy in 2 layers with Vircyl. I closed the mesentery defect with Vicryl as well. I ran the distal small bowel to ensure no strange kinks or twists, and none were seen. Hemostasis was excellent. While doing this, I encountered a stud on the T.I. just before the ileocecal valve. It was very concerning in appearance for malignancy. Using the endosheers I sharply excised it and removed it THRU the 12mm trocar. None was spilled or lost. This did leave a small serosal defect and I closed that with Lembert style stitch of Vicryl. Lastly, I freed the omentum from up against the superior abdominal wall (prior open jony incision) using the Ligasure. This allowed the omentum to lay, draped over the small bowel, as it normal should/would. Hemostasis was excellent. The 12mm port was closed thru fascia with a Vicryl stitch using Chris Burger. I removed the 5 mm ports. I closed the skin with a running Monocryl. Dermabond was placed on the skin. The sponge, instrument and sharps counts were correct x3 at the end of the procedure. The patient tolerated the procedure well and was taken to the PACU in hemodynamically stable condition.
[2023-09-08] MEDS: fentaNYL 100 MCG/2 ML VIAL IVP (15:03)
--- NOTE | 2023-09-08 15:33 | W.ANESPOSTOP ---
Postoperative Evaluation Date, Time and Location Date Performed: 09/08/23 Time Performed: 15:25 Patient Location: PACU Vital Signs Most Recent Imported Vital Signs: Most Recent Vital Signs Temp Pulse Resp BP Pulse Ox 36.2 C L 53 L 7 L 141/60 H 97 09/08/23 15:10 09/08/23 15:15 09/08/23 15:16 09/08/23 15:15 09/08/23 15:16 Pain Score Most Recent Pain Score: Most Recent Pain Score Pain Level 0 09/08/23 08:26 Assessment Mental Status: Arousable with meaningful communication Airway and Respiratory Function: Patent airway with normal (patient baseline) respiratory exam Cardiovascular Function: Hemodynamically Stable Hydration Status: Adequately Hydrated Nausea & Vomiting: No Nausea or Vomiting Pain: Pain is Moderate or Severe Postoperative Pain Management: Pain being addressed with medication Peripheral Nerve Block: Patient did not receive a nerve block Postoperative Comments:: Patient with planned admission to the floor.
[2023-09-08] MEDS: HYDROmorphone 2 MG/ML SYR 0.5 MG IVP ×2 (16:24→20:34)
[2023-09-08] MEDS: ACETAMINOPHEN 1,000 MG/100 ML BTL 400 MG IVPB ×2 (16:24→22:30)
[2023-09-09] MEDS: Normal Saline Flush 10 ML SYR IVP ×6 (02:58→21:58)
[2023-09-09] MEDS: HYDROmorphone 2 MG/ML SYR 0.5 MG IVP ×2 (02:58→21:58)
[2023-09-09] MEDS: ACETAMINOPHEN 1,000 MG/100 ML BTL 400 MG IVPB (05:08)
[2023-09-09] MEDS: Lactated Ringers 1,000 ML 75 ML IV ×2 (05:57→16:11)
[2023-09-09 07:14] VITALS: BP 143/65; PULSE 64; RESP 17; TEMP 36.7; O2SAT 98
[2023-09-09] MEDS: Ketorolac 15 MG/ML VIAL IVP ×2 (10:29→20:56)
[2023-09-09] MEDS: Heparin 5,000 UNITS/ML VIAL 5000 UNITS SC ×2 (10:31→18:25)
--- NOTE | 2023-09-09 12:37 | PGE_ITS ---
Date of Service Date of service: 09/09/23 Time of Service: 10:00 Assessment and Plan Assessment and plan (1) SBO (small bowel obstruction): Status: Acute Assessment and plan: (1) Overall, doing well POD#, s/p Laparscopy with ROSALIA and segmental SBR for recurrent SBO (2) Tolerating clears, will advance to Full Liquids for lunch today. (3) Continue IVF, will wean and plan to saline lock tomorrow. Subjective Subjective Interval history since last seen: Patient seen and examined on morning rounds today. Now POD#1, s/p Laparoscopic SBR and adhesiolysis for partial recurrent SBO. Doing well, ambulating hallways and tolerating clears. Exam HENMT Other: Neck supple Eyes Other: Non-icteric GI Other: Abdomen is soft, wounds are intact, and BS are present. Extrem Other: There is no calf pain. Psych Other: Good-spirited Objective Last Vital Signs Temp 98.1 F 09/09/23 07:14 Pulse 64 09/09/23 07:14 Resp 17 09/09/23 07:14 BP 143/65 H 09/09/23 07:14 Pulse Ox 98 09/09/23 07:14 Time Spent with Patient Time Spent with Patient: <25 minutes Time was spent: preparing to see the patient(eg.review tests), referring, communicating with other health palliative care specialist and counseling the patient
--- NOTE | 2023-09-09 13:25 | INITIAL_ITS ---
Care Management Initial Assmt Initial Assessment Reason for Hospitalization: s/p Laparscopy with ROSALIA and segmental SBR for recurrent SBO Functional Status/Living Situation Patient Presentation: Reyna was sitting in a chair when CM met with her. She is smiling and reported that she feels so much better since having surgery. Overall, Reyna is thankful that the surgery is behind her and she has less pain. She is planning on discharging home sometime tomorrow afternoon is she continues to improve. Town of Residence: [place] Resides with: Spouse (Mick) Significant Other/Family: Out of area (Her son Александр lives in [place].) Employment Status: Retired Instrumental Activities of Daily Living (ADLs): Independent Medications Medication Management: No Issues/Barriers identified Advance Directives Advance Directives: Do you have an Advance Directive: Y 02/13/19 10:16 AD On File at [facility]: Y 02/13/19 10:16 Date Asked 09/08/23 09/08/23 15:40 AD Date Reviewed 09/08/23 09/06/23 12:26 COLST On File at [facility] No 05/13/23 19:57 COLST Date Scanned Code Status Resuscitation Status Full Code Portal Pt does not currently have a portal and education provided: Yes Insurance Coverage/Financial Issues Insurance: BC BS [place] ACO Member: Yes Care Team Visit Care Team Role Provider Type Reyna Abrams MD Primary Care Provider [facility] STAFF PHYSICIAN Blayne Villareal MD Admit Provider [facility] STAFF PHYSICIAN Attending Provider Discharge Potential Discharge Needs: PCP F/U Appt and Surgical F/U Appt Anticipated Barriers to Discharge: None Identified Patient/Family Education Needs: Review discharge instructions, discuss Ask Me Three Transportation: Private vehicle Plan: Anticipate Reyna will discharge home when medically ready. Follow up with community providers and her discharge plan of care as instructed. New [facility] services, if indicated. CM following PFSH All Active Problems Complete small bowel obstruction (Acute) SBO (small bowel obstruction) (Acute) Hypokalemia due to loss of potassium (Acute) Insomnia (Acute) Right hand paresthesia (Acute) HTN (hypertension) (Chronic) Chronic narcotic dependence (Chronic) changed from morphine to buprenorphine Therapeutic opioid induced constipation (Chronic) Pain from bone metastases (Chronic) hx ofmorphine ER; managed by [facility] [place] [place] heme onc. Now on buprenorphine managed by CM. Radiation vulvitis (Chronic) Onychomycosis (Chronic) GERD (gastroesophageal reflux disease) (Chronic) Medical History History of radiation therapy Screening for malignant neoplasm of colon performed Hx SBO Multiple hospitalizations. [place] to be due to opioid-induced constipation. Resolves with bowel rest. 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 04/2011 Hyst and BSO at [facility] [place] [place] Path= stage A1, Gr 11 Chronic hepatitis B (12/29/16) Multiple myeloma in remission on revlimid Surgical History History of colonoscopy (~10/2022) Hx of cataract surgery Hx of cholecystectomy S/P hysterectomy History of cholecystectomy H/O breast biopsy Right, 1o'clock, 12cm from nipple, US-guided needle core biopsy: negative for malignancy. fibroadipose tissue with assoc hemorrhage. Family History Mother , AGE 84 No problems noted. Father , AGE 92 No problems noted. Sister , AGE 79 No problems noted. Sister No problems noted. Brother , AGE 68 Stomach cancer Brother No problems noted. Brother No problems noted. Brother No problems noted. Brother No problems noted. Son No problems noted. 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 Pets and animals: No Sexually active: No Do you think of yourself as: straight/heterosexual Current gender identity: female What is your relationship status?: How often do you talk on the phone with friends or family?: three or more times per week How often do you get together with friends or relatives?: decline to answer How often do you attend methodist or faith services?: decline to answer Do you belong to any clubs or organized social groups?: no Panel score (0-1 are the most socially isolated patients): 2 What type of physical activity do you participate in: walking and running Duration: 30-45 minutes/day Frequency: 3-4 times per week Christianne/Rastafarian: Yarsani Special christianne needs: No Seatbelt use: always 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 Drive intox or w/intox otr 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 driver: rarely Working smoke detector in home: Yes Carbon monox detector in home: Yes Firearms in home: Yes Firearms unloaded and locked: Yes Do you feel safe at home: Yes Do you feel safe in your relationship?: Yes Victim of physical abuse: No Victim of emotional abuse: No Victim of sexual abuse: No Would you like helpful sources: No Additional Social history: [facility] Readmission Within the Past 30 Days Yes or No: Yes Date of First Admission Date of 1st Admission: 09/04/23 Date of this Admission Date of Admission: 09/08/23 This admission was: Direct Admit (Surgical Patient ) Office Visit Since 1st Admission Have you seen your PCP in the office since discharge?: No Had an appointment Been Scheduled?: No Speicalist Appointments Have you seen any other specialist since your 1st Admission?: Yes Date you saw the Specialist: 09/08/23 Specialist Seen: Surgeon, planned outpatient procedure I. Interview patient and/or Family Difficulty reaching your doctor or getting an office appt?: No Have you had trouble purchasing/ or taking medication?: No Have you had trouble with getting meals at home?: No Did you feel ready for discharge when you left the last time: Yes
[2023-09-09 15:35] VITALS: BP 142/64; PULSE 65; RESP 17; TEMP 37; O2SAT 99
[2023-09-09] MEDS: Acetaminophen 500 MG TAB 1000 MG PO (17:46)
[2023-09-09 19:00] VITALS: BP 157/73; PULSE 71; RESP 20; TEMP 36.8; O2SAT 97
[2023-09-10] VITALS (8 sets, daily range): BP systolic 135–178; BP diastolic 57–100; PULSE 62–84; RESP 16–20; TEMP 36.3–37; O2SAT 97–100
[2023-09-10] MEDS: Heparin 5,000 UNITS/ML VIAL 5000 UNITS SC ×3 (02:04→17:37)
[2023-09-10] MEDS: Acetaminophen 500 MG TAB 1000 MG PO ×2 (05:29→15:00)
[2023-09-10 06:25] LABS: Abs Immature Grans 0.01 10^3/uL (0.0-0.06); Absolute Basophil Count 0.01 10^3/uL (0.0-0.2); Absolute Monocyte Count 0.29 10^3/uL (0.1-0.8); Absolute Neutrophil Count 3.72 10^3/uL (1.2-6.7); Basophils % 0.2 %; Eosinophils % 1.8 %; HCT 31.9 % (36.0-46.0); HGB 11.7 g/dL (11.2-15.7); Immature Grans % 0.2 %; Lymphocytes % 23.9 %; MCH 35.5 pg (27.0-33.0); MCHC 36.7 % (32.0-36.0); MCV 97 fL (80-95); MPV 9.7 fL (8.0-11.0); Monocytes % 5.3 %; Neutrophils % 68.6 %; Platelet Count 169 10^3/uL (130-400); RDW 11.8 % (11.7-14.6); RDW-SD 41.3 fL; WBC 5.43 10^3/uL (4.4-10.8)
[2023-09-10] MEDS: Lactated Ringers 1,000 ML 75 ML IV (08:25)
[2023-09-10] MEDS: Ketorolac 15 MG/ML VIAL IVP ×3 (08:25→23:14)
--- NOTE | 2023-09-10 13:51 | PGE_ITS ---
Date of Service Date of service: 09/10/23 Time of Service: 11:00 Assessment and Plan Assessment and plan (1) SBO (small bowel obstruction): Status: Acute Assessment and plan: (a) Overall, doing well POD#2, s/p Lap ROSALIA and SBR with enteroenterostomy (b) Will decrease IVF rate and saline lock after current liter bag completed (c) Will advance diet to GI soft today. (d) Likely should be able to go home tomorrow. Juan A Vyas D.O. Subjective Subjective Interval history since last seen: Patient seen and examined on morning rounds today. Feeling a little washed out today, but continues to ambulate hallways. visiting today. Exam Narrative Exam Narrative: Remains good-spirited. Has been passing liquids stools and flatus. Had some abdominal cramping. Eyes Other: Non-icteric Neck Other: Supple GI Other: Soft, BS are present, there is no guarding and no rebound. All laparoscopic wounds are intact, clean, and dry. Extrem Other: There is no calf pain. Objective Last Vital Signs Temp 97.3 F L 09/10/23 08:24 Pulse 73 09/10/23 08:24 Resp 16 09/10/23 08:24 BP 157/78 H 09/10/23 08:24 Pulse Ox 97 09/10/23 08:24 Laboratory Results - last 24 hr 09/10/23 05:54 WBC 5.43 RBC 3.30 L Hgb 11.7 Hct 31.9 L MCV 97 H MCH 35.5 H MCHC 36.7 H RDW 11.8 Plt Count 169 MPV 9.7 Immature Gran % 0.2 Neutrophils % 68.6 Lymphocytes % 23.9 Monocytes % 5.3 Eosinophils % 1.8 Basophils % 0.2 Nucleated RBC % 0.0 Absolute Neutrophils 3.72 Absolute Lymphocytes 1.30 Absolute Monocytes 0.29 Absolute Eosinophils 0.10 Absolute Basophils 0.01 Objective Narrative Objective Narrative: Labs reviewed Time Spent with Patient Time Spent with Patient: <25 minutes Time was spent: preparing to see the patient(eg.review tests), referring, communicating with other health neonatal intensive care unit nurse, indepentently interpreting results and counseling the patient
[2023-09-10] MEDS: Normal Saline Flush 10 ML SYR IVP ×2 (16:38→23:14)
[2023-09-10] MEDS: HYDROmorphone 2 MG/ML SYR 0.5 MG IVP (17:56)
[2023-09-11] MEDS: Heparin 5,000 UNITS/ML VIAL 5000 UNITS SC (01:46)
[2023-09-11] MEDS: Acetaminophen 500 MG TAB 1000 MG PO (01:50)
[2023-09-11 08:40] VITALS: BP 134/67; PULSE 74; RESP 16; TEMP 36.4; O2SAT 99
--- NOTE | 2023-09-11 11:49 | DSE_ITS ---
Date of service: 09/11/23 Time of Service: 11:49 DS: Diagnosis Discharge Diagnosis (1) SBO (small bowel obstruction): Status: Acute Asessment and Plan: (a) Patient with longstanding history of partial SBO (b) Now POD#3, s/p Lap ROSALIA and SBR with enteroenterostomy, and appendectomy. Discharge Plan Disposition Patient Disposition: Home Condition: Improving Discharge Details Reason For Visit: small bowel resection Admit Date/Time: 09/08/23 14:50 Admit Provider: Blayne Villareal Attending Provider: Blayne Villareal Primary Care Provider: Reyna Abrams Hospital Course Hospital Course: Patient brought to hospital. Underwent Laparoscopic lysis of adhesions, small bowel resection, and enteroenterostomy, and appendectomy. PATH remains pending on all. Patient tolerated procedure well. Tolerated advancement of her diet. Was able to ambulate hallways. She had return of bowel function, was passing flatus, and eventually had bowel movement. On POD#3, patient was afebrile and wished to be discharged to home. She has adequate home medications and states that she will take Tylenol or Advil as needed for pain. Home Meds and New Rx's Prescriptions: No Action lenalidomide [Revlimid] 5 mg capsule 5 mg PO DAILY Hold Instructions: Per states she stops every two weeks anyways ibuprofen 200 mg tablet 200 mg PO Q6H PRN acetaminophen 325 mg tablet 325 mg PO ONCE PRN nystatin 100,000 unit/gram cream 1 applic TP BID Qty: 30 1RF Patient Comments: not taking per pt triamcinolone acetonide 0.1 % cream 1 applic TP BID Qty: 30 1RF Patient Comments: pt not sure if taking buprenorphine HCl 150 mcg film 150 mcg buccal Q12H Qty: 60 3RF Patient Comments: pt not sure if still taking omeprazole 40 mg capsule,delayed release(DR/EC) 40 mg PO DAILY PRNQty: 90 Patient Comments: 04/09/16 takes prn. md gabapentin 300 mg capsule 300 mg PO TID Qty: 270 3RF Hold Instructions: Changed by Provider aspirin [Aspirin Low-Strength] 81 MG tablet,chewable 81 mg PO DAILY Patient Comments: 09-21-17 pt reports that she takes this med every other day. hb polyethylene glycol 3350 [Miralax] 17 gram/dose powder 8.5 g PO HS Qty: 0 0RF Rx Instructions: take a dose at bedtime if no BM during the day valacyclovir 500 mg tablet 500 mg PO BID Qty: 60 3RF acetaminophen 500 mg Tablet 1,000 mg PO Q8H PRN PRNQty: 60 0RF Hold Instructions: Changed by Provider Discharge Instructions Activity:: No heavy lifting. Equipment/Supplies:: No Equipment Needed Diet:: Refrain from carbonated beverages for 1-2 weeks DS: Summary Time Spent with Patient providing and/or coordinating discharge services: Less than 30 minutes Status at Discharge Functional status at discharge: independent ambulation Overall status at discharge: patient is progressing back to baseline Mental Status: mental status grossly normal Speech and Movement: speech and movement normal Mood: congruent mood Affect: normal affect Quality:SDOH Health Related Social Needs: Health related social needs risk of homeless Exam Narrative Exam Narrative: Pleasant, cooperative, appropriate, comfortable. Eyes Other: Non-icteric Neck Other: Supple GI Other: Abdomen is soft, non-tender, BS are present, there is no guarding and no rebound. All laparoscopic wounds are intact, clean and dry. Neuro Other: No focal deficits Extrem Other: There is no calf pain. Psych Mental Status: mental status grossly normal Speech and Movement: speech and movement normal Mood: congruent mood Affect: normal affect DS: Data Vitals/I&O Vitals and I&O: Vital Signs Temperature 97.5 F L 09/11/23 08:40 Temperature Source Tympanic 09/11/23 08:40 Pulse 74 09/11/23 08:40 Pulse Rhythm Regular 09/11/23 08:45 Pulse 56 L 09/08/23 15:16 Respiratory Rate 16 09/11/23 08:40 Respiratory Effort Normal 09/11/23 08:45 Respiratory Depth Normal 09/11/23 08:45 Respiratory Pattern Normal 09/11/23 08:45 Blood Pressure 134/67 09/11/23 08:40 Blood Pressure Mean 88 09/08/23 15:15 Pulse Oximetry 99 09/11/23 08:40 Respiratory End-tidal CO2 31 09/08/23 15:16 Oxygen Delivery Method Room Air 09/11/23 08:40 Oxygen Flow Rate 0 09/11/23 08:40 Pain Level 3 09/11/23 01:50 Comment pleasant and cooperative with care, using call hauser to maintain safety, ambulating independently, states she is ready to go home 09/11/23 08:40 Intake & Output 09/10/23 09/10/23 09/11/23 11:59 23:59 11:59 Intake Total 2385 / 3886.25 1501.25 / 3886.25 240 / 240 Output Total 1075 / 1075 Balance 1310 / 2811.25 1501.25 / 2811.25 240 / 240 Intake: IV 1935 / 2886.25 951.25 / 2886.25 Oral 450 / 1000 550 / 1000 240 / 240 Output: Urine 1075 / 1075 Other: Urine Color Yellow Yellow Urine Appearance Clear Clear Urine Odor Normal None Comment toilet insert voids independently Stool Size Small Small Stool Characteristics Liquid Soft Brown Mucoid Brown Voiding Methods Toilet Toilet PFSH All Active Problems Complete small bowel obstruction (Acute) SBO (small bowel obstruction) (Acute) Hypokalemia due to loss of potassium (Acute) Insomnia (Acute) Right hand paresthesia (Acute) HTN (hypertension) (Chronic) Chronic narcotic dependence (Chronic) changed from morphine to buprenorphine Therapeutic opioid induced constipation (Chronic) Pain from bone metastases (Chronic) hx ofmorphine ER; [place] [facility] [place] Now on buprenorphine managed by [facility]. Radiation vulvitis (Chronic) Onychomycosis (Chronic) GERD (gastroesophageal reflux disease) (Chronic) Medical History History of radiation therapy Screening for malignant neoplasm of colon performed Hx SBO Multiple hospitalizations. [place] to be due to opioid-induced constipation. Resolves with bowel rest. 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 04/2011 Hyst and BSO [place] [facility] Path= stage A1, Gr 11 Chronic hepatitis B (12/29/16) Multiple myeloma in remission on revlimid Surgical History History of colonoscopy (~10/2022) Hx of cataract surgery Hx of cholecystectomy S/P hysterectomy History of cholecystectomy H/O breast biopsy Right, 1o'clock, 12cm from nipple, US-guided needle core biopsy: negative for malignancy. fibroadipose tissue with assoc hemorrhage. Family History Mother , AGE 84 No problems noted. Father , AGE 92 No problems noted. Sister , AGE 79 No problems noted. Sister No problems noted. Brother , AGE 68 Stomach cancer Brother No problems noted. Brother No problems noted. Brother No problems noted. Brother No problems noted. Son No problems noted. 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 Pets and animals: No Sexually active: No Do you think of yourself as: straight/heterosexual Current gender identity: female What is your relationship status?: How often do you talk on the phone with friends or family?: three or more times per week How often do you get together with friends or relatives?: decline to answer How often do you attend adventist or caodaism services?: decline to answer Do you belong to any clubs or organized social groups?: no Panel score (0-1 are the most socially isolated patients): 2 What type of physical activity do you participate in: walking and running Duration: 30-45 minutes/day Frequency: 3-4 times per week Christianne/Baptist: Hindu Special christianne needs: No Seatbelt use: always Drive intox or ride w/intox steam train driver: 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 Drive intox or w/intox steam train driver: rarely Working smoke detector in home: Yes Carbon monox detector in home: Yes Firearms in home: Yes Firearms unloaded and locked: Yes Do you feel safe at home: Yes Do you feel safe in your relationship?: Yes Victim of physical abuse: No Victim of emotional abuse: No Victim of sexual abuse: No Would you like helpful sources: No Additional Social history: [facility] Time Spent with Patient Time Spent with Patient: <45 minutes Time was spent: preparing to see the patient(eg.review tests), referring, communicating with other health home health caregiver and counseling the patient
--- NOTE | 2023-09-11 13:54 | PDOC.CMDIS ---
Date of service: 09/11/23 Time of Service: 13:54 LACE Index Scoring Tool Questions: Length of Stay (in days): 3 Was the patient admitted via the E.D.?: No Comorbidities: Any Tumor and Liver or Renal Disease E.D. Visits: 3 Answers: Total Score: 11 Risk of Readmission: High Risk Care Management Discharge Plan Reason for Hospitalization: SBO Discharge Plan: Vi will be discharged home with no new services. She will follow up with her PCP, surgeon and plan of care and transport with her . Patient/Family Education Needs: Review discharge instructions, diet, activity, limitations, follow up plan and discuss Ask Me Three SDOH Health Related Social Needs: Health related social needs risk of homeless
== END 2023-09-11 12:25 | disposition home or self-care (01) ==
LOC: MS 15:40
PROVIDERS: Admitting Provider Student in an Organized Health Care Education/Training Program; PCP Family Medicine; Visit Provider Student in an Organized Health Care Education/Training Program
PROC: (CPT 44202; principal; 2023-09-08 10:30)
DX: K56.699 Other intestinal obstruction unspecified as to partial versus complete obstruction (principal); K38.8 Other specified diseases of appendix; K66.0 Peritoneal adhesions (postprocedural) (postinfection); I10 Essential (primary) hypertension; G47.00 Insomnia, unspecified; K21.9 Gastro-esophageal reflux disease without esophagitis; Z79.891 Long term (current) use of opiate analgesic; K59.03 Drug induced constipation; N76.3 Subacute and chronic vulvitis; B35.1 Tinea unguium; C79.51 Secondary malignant neoplasm of bone; Z92.3 Personal history of irradiation; Z86.13 Personal history of malaria; B02.21 Postherpetic geniculate ganglionitis; L40.9 Psoriasis, unspecified; Z85.42 Personal history of malignant neoplasm of other parts of uterus; B18.1 Chronic viral hepatitis B without delta-agent; C90.01 Multiple myeloma in remission; Z79.899 Other long term (current) drug therapy
CPT/HCPCS: 44202; 44970; 00123; 36415; 76942; 88305; 96365; 96366; 96372; 96375; 96376; 85025; 88302; 88304; 88307; C9290; G0378; J0131; J0665; J0690; J1100; J1170; J1644; J1836; J1885; J2001; J2405; J2704; J3010; J3475

== ENCOUNTER → 2023-09-19 12:52 | Outpatient (BNVA) | payer MEDICARE, BC, SELFPAY | PROVIDERS: PCP Family Medicine; Referring Provider Family Medicine; Visit Provider Physical Therapy Assistant | DX: Z48.815 Encounter for surgical aftercare following surgery on the digestive system (principal) ==

== ENCOUNTER 2023-11-02 16:03 | Outpatient (CLI) | payer MEDICARE, BC, SELFPAY ==
[2023-11-02 14:39] LABS: Absolute Basophil Count 0.01 10^3/uL (0.0-0.2); Absolute Eosinophil Count 0.28 10^3/uL (0.0-0.7); Absolute Lymphocyte Count 1.39 10^3/uL (1.2-3.4); Absolute Monocyte Count 0.32 10^3/uL (0.1-0.8); Absolute Neutrophil Count 2.02 10^3/uL (1.2-6.7); Basophils % 0.2 %; HCT 34.7 % (36.0-46.0); HGB 12.2 g/dL (11.2-15.7); Lymphocytes % 34.6 %; MCH 34.2 pg (27.0-33.0); MCHC 35.2 % (32.0-36.0); MCV 97 fL (80-95); MPV 8.8 fL (8.0-11.0); Neutrophils % 50.2 %; Platelet Count 175 10^3/uL (130-400); RBC 3.57 10^6/uL (3.93-5.22); RDW 11.7 % (11.7-14.6); RDW-SD 41.9 fL; WBC 4.02 10^3/uL (4.4-10.8)
== END 2023-11-02 16:04 | disposition home or self-care (01) ==
LOC: LBO 16:04
PROVIDERS: PCP Family Medicine; Visit Provider Internal Medicine Hematology & Oncology
DX: D50.9 Iron deficiency anemia, unspecified (principal); D50.0 Iron deficiency anemia secondary to blood loss (chronic); D51.9 Vitamin B12 deficiency anemia, unspecified; C90.01 Multiple myeloma in remission
CPT/HCPCS: 36415; 85025

== ENCOUNTER 2023-12-06 04:40 | Outpatient (CLI) | payer MEDICARE, BC, SELFPAY ==
[2023-12-06 13:26] LABS: Abs Immature Grans 0.01 10^3/uL (0.0-0.06); Absolute Basophil Count 0.01 10^3/uL (0.0-0.2); Absolute Eosinophil Count 0.17 10^3/uL (0.0-0.7); Absolute Lymphocyte Count 1.04 10^3/uL (1.2-3.4); Absolute Monocyte Count 0.18 10^3/uL (0.1-0.8); Absolute Neutrophil Count 1.46 10^3/uL (1.2-6.7); Basophils % 0.3 %; Eosinophils % 5.9 %; HCT 36.7 % (36.0-46.0); HGB 12.6 g/dL (11.2-15.7); Immature Grans % 0.3 %; Lymphocytes % 36.2 %; MCH 33.6 pg (27.0-33.0); MCHC 34.3 % (32.0-36.0); MCV 98 fL (80-95); MPV 8.7 fL (8.0-11.0); Monocytes % 6.3 %; Platelet Count 192 10^3/uL (130-400); RBC 3.75 10^6/uL (3.93-5.22); RDW 11.7 % (11.7-14.6); RDW-SD 42.2 fL; WBC 2.87 10^3/uL (4.4-10.8)
[2023-12-06 13:41] LABS: ALT 28 U/L (14-59); AST 26 U/L (15-37); Albumin 3.7 g/dL (3.4-5.0); Alkaline Phosphatase 67 U/L (46-116); Anion Gap 4.9 mmol/L (3-11); BUN 7 mg/dL (7-18); Bilirubin, Total 0.42 mg/dL (0.2-1.0); CO2 31.1 mmol/L (21.0-32.0); CREATININE 0.7 mg/dL (0.55-1.02); Calcium 9.5 mg/dL (8.5-10.1); Chloride 100 mmol/L (98-107); Glucose 100 mg/dL (74-106); Potassium 3.3 mmol/L (3.5-5.1); Sodium 136 mmol/L (136-145); Total Protein 8.1 g/dL (6.4-8.2)
[2023-12-07 10:11] LABS: IgA 403 mg/dL (85-499); IgG 1487 mg/dL (610-1616); IgM 92 mg/dL (35-242); Kappa Free Light Chain 2.77 mg/dL (0.33-1.94); Lambda Free Light Chain 1.22 mg/dL (0.57-2.63)
[2023-12-07 12:48] LABS: Albumin 55.2 % (55.8-66.1); Albumin g/dL 4.1 g/dL (3.6-5.2); Total Protein 7.4 g/dL (6.3-8.2)
== END 2023-12-06 04:41 | disposition home or self-care (01) ==
LOC: LBO 04:40
PROVIDERS: PCP Family Medicine; Visit Provider Internal Medicine Hematology & Oncology
DX: D50.9 Iron deficiency anemia, unspecified (principal)
CPT/HCPCS: 36415; 80053; 82784; 82607; 82728; 83540; 83550; 83883; 84165; 85025

== ENCOUNTER 2024-01-02 02:58 | Outpatient (CLI) | payer MEDICARE, BC, SELFPAY ==
[2024-01-02 14:29] LABS: ALT 22 U/L (14-59); AST 23 U/L (15-37); Albumin 3.5 g/dL (3.4-5.0); Alkaline Phosphatase 67 U/L (46-116); BUN 11 mg/dL (7-18); Bilirubin, Total 0.45 mg/dL (0.2-1.0); CREATININE 0.8 mg/dL (0.55-1.02); Calcium 9.1 mg/dL (8.5-10.1); Chloride 98 mmol/L (98-107); Estimated GFR 77.27 (mL/min/1.73m2); Glucose 84 mg/dL (74-106); Sodium 134 mmol/L (136-145)
[2024-01-02 15:05] LABS: Abs Immature Grans 0.01 10^3/uL (0.0-0.06); Absolute Basophil Count 0.03 10^3/uL (0.0-0.2); Absolute Eosinophil Count 0.15 10^3/uL (0.0-0.7); Absolute Lymphocyte Count 1.11 10^3/uL (1.2-3.4); Absolute Monocyte Count 0.33 10^3/uL (0.1-0.8); Absolute Neutrophil Count 1.43 10^3/uL (1.2-6.7); Eosinophils % 4.9 %; HCT 36.2 % (36.0-46.0); HGB 12.2 g/dL (11.2-15.7); Immature Grans % 0.3 %; Lymphocytes % 36.3 %; MCH 33.7 pg (27.0-33.0); MCHC 33.7 % (32.0-36.0); MCV 100 fL (80-95); MPV 9.5 fL (8.0-11.0); Monocytes % 10.8 %; Neutrophils % 46.7 %; Platelet Count 203 10^3/uL (130-400); RBC 3.62 10^6/uL (3.93-5.22); RDW 12.2 % (11.7-14.6); RDW-SD 44.7 fL; WBC 3.06 10^3/uL (4.4-10.8)
[2024-01-04 10:02] LABS: IgA 442 mg/dL (85-499); IgG 1453 mg/dL (610-1616); IgM 83 mg/dL (35-242); Kappa Free Light Chain 3.31 mg/dL (0.33-1.94); Lambda Free Light Chain 1.39 mg/dL (0.57-2.63)
[2024-01-04 13:51] LABS: Albumin 56.5 % (55.8-66.1); Albumin g/dL 4.2 g/dL (3.6-5.2); Total Protein 7.5 g/dL (6.3-8.2)
== END 2024-01-02 02:59 | disposition home or self-care (01) ==
PROVIDERS: Internal Medicine Hematology & Oncology; PCP Family Medicine; Visit Provider Nurse Practitioner Adult Health
DX: D50.9 Iron deficiency anemia, unspecified (principal)
CPT/HCPCS: 36415; 80053; 82784; 83540; 83550; 83883; 84165; 85025

== ENCOUNTER 2024-01-30 02:13 | Outpatient (CLI) | payer MEDICARE, BC, SELFPAY ==
[2024-01-30 14:17] LABS: Absolute Basophil Count 0.02 10^3/uL (0.0-0.2); Absolute Eosinophil Count 0.15 10^3/uL (0.0-0.7); Absolute Lymphocyte Count 1.17 10^3/uL (1.2-3.4); Absolute Monocyte Count 0.31 10^3/uL (0.1-0.8); Absolute Neutrophil Count 1.46 10^3/uL (1.2-6.7); Basophils % 0.6 %; Eosinophils % 4.8 %; HGB 12.7 g/dL (11.2-15.7); Lymphocytes % 37.6 %; MCH 33.7 pg (27.0-33.0); MCHC 34.3 % (32.0-36.0); MCV 98 fL (80-95); MPV 9.1 fL (8.0-11.0); Platelet Count 199 10^3/uL (130-400); RBC 3.77 10^6/uL (3.93-5.22); RDW 12.2 % (11.7-14.6); RDW-SD 44.3 fL; WBC 3.11 10^3/uL (4.4-10.8)
[2024-01-30 14:33] LABS: ALT 19 U/L (14-59); AST 23 U/L (15-37); Albumin 3.6 g/dL (3.4-5.0); Alkaline Phosphatase 68 U/L (46-116); Anion Gap 4.7 mmol/L (3-11); BUN 12 mg/dL (7-18); Bilirubin, Total 0.36 mg/dL (0.2-1.0); CO2 31.3 mmol/L (21.0-32.0); CREATININE 0.8 mg/dL (0.55-1.02); Calcium 9.2 mg/dL (8.5-10.1); Chloride 100 mmol/L (98-107); Estimated GFR 77.27 (mL/min/1.73m2); Glucose 92 mg/dL (74-106); Potassium 4.6 mmol/L (3.5-5.1); Sodium 136 mmol/L (136-145); Total Protein 8.1 g/dL (6.4-8.2)
== END 2024-01-30 02:14 | disposition home or self-care (01) ==
PROVIDERS: Internal Medicine Hematology & Oncology; PCP Family Medicine; Visit Provider Nurse Practitioner Adult Health
DX: C90.01 Multiple myeloma in remission (principal)
CPT/HCPCS: 36415; 80053; 82784; 82607; 82728; 83883; 84165; 85025

== ENCOUNTER 2024-02-27 02:11 | Outpatient (CLI) | payer MEDICARE, BC, SELFPAY ==
[2024-02-27 13:13] LABS: Absolute Basophil Count 0.01 10^3/uL (0.0-0.2); Absolute Eosinophil Count 0.18 10^3/uL (0.0-0.7); Absolute Lymphocyte Count 1.25 10^3/uL (1.2-3.4); Absolute Monocyte Count 0.26 10^3/uL (0.1-0.8); Absolute Neutrophil Count 1.48 10^3/uL (1.2-6.7); Basophils % 0.3 %; Eosinophils % 5.7 %; HCT 38.8 % (36.0-46.0); HGB 13.7 g/dL (11.2-15.7); Lymphocytes % 39.3 %; MCH 33.5 pg (27.0-33.0); MCHC 35.3 % (32.0-36.0); MCV 95 fL (80-95); MPV 8.5 fL (8.0-11.0); Monocytes % 8.2 %; Neutrophils % 46.5 %; Platelet Count 195 10^3/uL (130-400); RBC 4.09 10^6/uL (3.93-5.22); RDW 12.3 % (11.7-14.6); RDW-SD 42.9 fL; WBC 3.18 10^3/uL (4.4-10.8)
[2024-02-27 13:33] LABS: ALT 23 U/L (14-59); AST 26 U/L (15-37); Alkaline Phosphatase 72 U/L (46-116); Anion Gap 4.4 mmol/L (3-11); BUN 11 mg/dL (7-18); Bilirubin, Total 0.47 mg/dL (0.2-1.0); CO2 30.6 mmol/L (21.0-32.0); CREATININE 0.9 mg/dL (0.55-1.02); Calcium 9.2 mg/dL (8.5-10.1); Chloride 96 mmol/L (98-107); Estimated GFR 67.08 (mL/min/1.73m2); Glucose 91 mg/dL (74-106); Sodium 131 mmol/L (136-145); Total Protein 8.6 g/dL (6.4-8.2)
[2024-02-28 10:02] LABS: IgA 490 mg/dL (85-499); IgG 1644 mg/dL (610-1616); IgM 90 mg/dL (35-242); Kappa Free Light Chain 3.26 mg/dL (0.33-1.94); Lambda Free Light Chain 1.35 mg/dL (0.57-2.63)
[2024-02-28 12:16] LABS: Albumin 56.6 % (55.8-66.1); Albumin g/dL 4.7 g/dL (3.6-5.2); Total Protein 8.3 g/dL (6.3-8.2)
== END 2024-02-27 02:12 | disposition home or self-care (01) ==
PROVIDERS: PCP Family Medicine; Visit Provider Nurse Practitioner Adult Health
DX: C90.01 Multiple myeloma in remission (principal)
CPT/HCPCS: 36415; 80053; 82784; 83883; 84165; 85025

== ENCOUNTER 2024-03-26 02:31 | Outpatient (CLI) | payer MEDICARE, BC, SELFPAY ==
[2024-03-26 13:18] LABS: Absolute Basophil Count 0.02 10^3/uL (0.0-0.2); Absolute Eosinophil Count 0.15 10^3/uL (0.0-0.7); Absolute Lymphocyte Count 1.24 10^3/uL (1.2-3.4); Absolute Monocyte Count 0.28 10^3/uL (0.1-0.8); Basophils % 0.6 %; Eosinophils % 4.9 %; HCT 40.2 % (36.0-46.0); HGB 13.9 g/dL (11.2-15.7); Lymphocytes % 40.1 %; MCH 33.7 pg (27.0-33.0); MCHC 34.6 % (32.0-36.0); MCV 98 fL (80-95); MPV 8.6 fL (8.0-11.0); Monocytes % 9.1 %; Neutrophils % 45.3 %; Platelet Count 187 10^3/uL (130-400); RBC 4.12 10^6/uL (3.93-5.22); RDW 12.5 % (11.7-14.6); RDW-SD 44.6 fL; WBC 3.09 10^3/uL (4.4-10.8)
[2024-03-26 13:40] LABS: ALT 22 U/L (14-59); AST 24 U/L (15-37); Albumin 3.8 g/dL (3.4-5.0); Alkaline Phosphatase 73 U/L (46-116); Anion Gap 4.3 mmol/L (3-11); BUN 14 mg/dL (7-18); Bilirubin, Total 0.43 mg/dL (0.2-1.0); CO2 30.7 mmol/L (21.0-32.0); CREATININE 0.8 mg/dL (0.55-1.02); Chloride 100 mmol/L (98-107); Estimated GFR 77.27 (mL/min/1.73m2); Glucose 96 mg/dL (74-106); Sodium 135 mmol/L (136-145); Total Protein 8.4 g/dL (6.4-8.2)
[2024-03-27 09:48] LABS: IgA 477 mg/dL (85-499); IgG 1592 mg/dL (610-1616); IgM 83 mg/dL (35-242); Kappa Free Light Chain 3.55 mg/dL (0.33-1.94); Lambda Free Light Chain 1.44 mg/dL (0.57-2.63)
[2024-03-29 15:27] LABS: Albumin 56.7 % (55.8-66.1); Albumin g/dL 4.4 g/dL (3.6-5.2); Comment (See Note); Total Protein 7.8 g/dL (6.3-8.2)
[2024-03-29 16:23] LABS: Immunotyping, Serum (See Note)
== END 2024-03-26 02:32 | disposition home or self-care (01) ==
LOC: LBO 02:31
PROVIDERS: Nurse Practitioner Adult Health; PCP Family Medicine; Visit Provider Internal Medicine Hematology & Oncology
DX: C90.01 Multiple myeloma in remission (principal)
CPT/HCPCS: 36415; 80053; 82784; 83883; 84165; 85025; 86320

== ENCOUNTER 2024-04-23 01:31 | Outpatient (CLI) | payer MEDICARE, BC, SELFPAY ==
--- NOTE | 2024-04-23 07:30 | DI.MAMMO_ITS ---
Exam(s) MAMMO SCREENING EXAM: MAMMO SCREENING CLINICAL HISTORY: screening,z12.39. TECHNIQUE: Bilateral full field digital CC and MLO mammographic images were obtained with 3D tomosyn thesis and utilizing computer aided detection (CAD). COMPARISON: Prior mammograms were reviewed. FINDINGS: There has been no significant change in the appearance and distribution of the fibroglandular tissue. There are no CAD designations. There are no new spiculated masses nor malignant appearing microcalcification groups. There is no significant architectural distortion nor skin thickening-retraction. IMPRESSION: No radiographic evidence of malignancy. BI-RADS Category 1 - Negative Breast Density - Category B - Scattered areas of fibroglandular density Breast density Category C or D implies that the patient has dense breast tissue. Dense breast tissue can make it harder to find cancer on a mammogram. Dense breast tissue is also associated with an incr eased risk of breast cancer. This information about the result of the mammogram report was provided to the patient to raise their awareness. Use this report when you speak with the patient about their risks for breast cancer, which includes their family history. At that time, you may recommend additional screening tests (Ultrasoun d or MRI) as these tests may add significant information. A negative radiographic report should not delay biopsy if a dominant or clinically suspicious mass is present. Up to ten percent of cancers are not identified on mammography. A negative report may reinforce clinical impression. Adenosis and dense breasts may obscure an underlying neoplasm. False positive reports average 6 to 10%. Patient will receive a letter notifying them of these results.
== END 2024-04-23 01:51 ==
LOC: DI 01:31
PROVIDERS: PCP Family Medicine; Visit Provider Family Medicine
DX: Z12.31 Encounter for screening mammogram for malignant neoplasm of breast (principal); R92.323 Mammographic fibroglandular density, bilateral breasts
CPT/HCPCS: 77063; 77067

== ENCOUNTER 2024-04-23 03:19 | Outpatient (CLI) | payer MEDICARE, BC, SELFPAY ==
[2024-04-23 13:44] LABS: Abs Immature Grans 0.01 10^3/uL (0.0-0.06); Absolute Basophil Count 0.02 10^3/uL (0.0-0.2); Absolute Eosinophil Count 0.19 10^3/uL (0.0-0.7); Absolute Lymphocyte Count 1.32 10^3/uL (1.2-3.4); Absolute Monocyte Count 0.23 10^3/uL (0.1-0.8); Basophils % 0.6 %; Eosinophils % 5.8 %; HCT 37.9 % (36.0-46.0); HGB 13.2 g/dL (11.2-15.7); Immature Grans % 0.3 %; Lymphocytes % 40.4 %; MCH 33.5 pg (27.0-33.0); MCHC 34.8 % (32.0-36.0); MCV 96 fL (80-95); MPV 8.6 fL (8.0-11.0); Neutrophils % 45.9 %; Platelet Count 216 10^3/uL (130-400); RBC 3.94 10^6/uL (3.93-5.22); RDW 12.2 % (11.7-14.6); WBC 3.27 10^3/uL (4.4-10.8)
[2024-04-23 13:49] LABS: ALT 21 U/L (14-59); AST 24 U/L (15-37); Albumin 3.9 g/dL (3.4-5.0); Alkaline Phosphatase 71 U/L (46-116); Anion Gap 7.1 mmol/L (3-11); BUN 15 mg/dL (7-18); Bilirubin, Total 0.42 mg/dL (0.2-1.0); CO2 28.9 mmol/L (21.0-32.0); CREATININE 0.8 mg/dL (0.55-1.02); Calcium 9.5 mg/dL (8.5-10.1); Chloride 99 mmol/L (98-107); Estimated GFR 77.27 (mL/min/1.73m2); Glucose 97 mg/dL (74-106); Potassium 4.1 mmol/L (3.5-5.1); Sodium 135 mmol/L (136-145); Total Protein 8.4 g/dL (6.4-8.2)
[2024-04-23 14:16] LABS: Calculated LDL 114 mg/dL (<100); Cholesterol 231 mg/dL (<200); HDL Cholesterol 62 mg/dL (40-60); Triglyceride 276 mg/dL (<150); Vitamin B12 789 pg/mL (193-986)
[2024-04-24 08:21] LABS: IgA 488 mg/dL (85-499); IgG 1548 mg/dL (610-1616); IgM 88 mg/dL (35-242); Kappa Free Light Chain 3.59 mg/dL (0.33-1.94); Lambda Free Light Chain 1.34 mg/dL (0.57-2.63)
[2024-04-24 12:26] LABS: Albumin 54.9 % (55.8-66.1); Albumin g/dL 4.5 g/dL (3.6-5.2); Total Protein 8.2 g/dL (6.3-8.2)
== END 2024-04-23 03:20 | disposition home or self-care (01) ==
LOC: LBO 03:19
PROVIDERS: Nurse Practitioner Adult Health; PCP Family Medicine; Visit Provider Internal Medicine Hematology & Oncology
DX: C90.01 Multiple myeloma in remission (principal); I10 Essential (primary) hypertension; D51.9 Vitamin B12 deficiency anemia, unspecified
CPT/HCPCS: 36415; 80053; 80061; 82784; 82607; 83883; 84165; 85025

== ENCOUNTER 2024-05-21 01:57 | Outpatient (CLI) | payer MEDICARE, BC, SELFPAY ==
[2024-05-21 13:13] LABS: Abs Immature Grans 0.01 10^3/uL (0.0-0.06); Absolute Basophil Count 0.01 10^3/uL (0.0-0.2); Absolute Eosinophil Count 0.15 10^3/uL (0.0-0.7); Absolute Lymphocyte Count 1.15 10^3/uL (1.2-3.4); Absolute Monocyte Count 0.33 10^3/uL (0.1-0.8); Absolute Neutrophil Count 1.43 10^3/uL (1.2-6.7); Basophils % 0.3 %; Eosinophils % 4.9 %; HCT 36.2 % (36.0-46.0); HGB 12.7 g/dL (11.2-15.7); Immature Grans % 0.3 %; Lymphocytes % 37.3 %; MCH 34.2 pg (27.0-33.0); MCHC 35.1 % (32.0-36.0); MCV 98 fL (80-95); MPV 8.4 fL (8.0-11.0); Monocytes % 10.7 %; Neutrophils % 46.5 %; Platelet Count 174 10^3/uL (130-400); RBC 3.71 10^6/uL (3.93-5.22); RDW 12.8 % (11.7-14.6); RDW-SD 45.8 fL; WBC 3.08 10^3/uL (4.4-10.8)
[2024-05-21 13:25] LABS: ALT 25 U/L (14-59); AST 25 U/L (15-37); Albumin 3.6 g/dL (3.4-5.0); Alkaline Phosphatase 66 U/L (46-116); Anion Gap 4.7 mmol/L (3-11); BUN 12 mg/dL (7-18); Bilirubin, Total 0.51 mg/dL (0.2-1.0); CO2 30.3 mmol/L (21.0-32.0); CREATININE 0.8 mg/dL (0.55-1.02); Calcium 8.9 mg/dL (8.5-10.1); Chloride 98 mmol/L (98-107); Estimated GFR 77.27 (mL/min/1.73m2); Glucose 86 mg/dL (74-106); Potassium 4.2 mmol/L (3.5-5.1); Sodium 133 mmol/L (136-145); Total Protein 7.8 g/dL (6.4-8.2)
[2024-05-22 09:53] LABS: IgA 460 mg/dL (85-499); IgG 1524 mg/dL (610-1616); IgM 81 mg/dL (35-242); Kappa Free Light Chain 3.15 mg/dL (0.33-1.94); Lambda Free Light Chain 1.14 mg/dL (0.57-2.63)
[2024-05-22 12:03] LABS: Albumin 57.9 % (55.8-66.1); Albumin g/dL 4.5 g/dL (3.6-5.2); Total Protein 7.7 g/dL (6.3-8.2)
== END 2024-05-21 01:58 | disposition home or self-care (01) ==
PROVIDERS: PCP Family Medicine; Visit Provider Nurse Practitioner Adult Health
DX: C90.01 Multiple myeloma in remission (principal)
CPT/HCPCS: 36415; 80053; 82784; 83883; 84165; 85025

== ENCOUNTER 2024-06-18 01:57 | Outpatient (CLI) | payer MEDICARE, BC, SELFPAY ==
[2024-06-18 13:27] LABS: Abs Immature Grans 0.01 10^3/uL (0.0-0.06); Absolute Basophil Count 0.03 10^3/uL (0.0-0.2); Absolute Lymphocyte Count 1.38 10^3/uL (1.2-3.4); Absolute Monocyte Count 0.26 10^3/uL (0.1-0.8); Absolute Neutrophil Count 1.47 10^3/uL (1.2-6.7); Basophils % 0.9 %; HCT 36.3 % (36.0-46.0); HGB 12.8 g/dL (11.2-15.7); Immature Grans % 0.3 %; Lymphocytes % 41.2 %; MCH 34.1 pg (27.0-33.0); MCHC 35.3 % (32.0-36.0); MCV 97 fL (80-95); Monocytes % 7.8 %; Neutrophils % 43.8 %; Platelet Count 171 10^3/uL (130-400); RBC 3.75 10^6/uL (3.93-5.22); RDW 12.3 % (11.7-14.6); RDW-SD 43.5 fL; WBC 3.35 10^3/uL (4.4-10.8)
[2024-06-18 14:48] LABS: ALT 26 U/L (14-59); AST 23 U/L (15-37); Albumin 3.6 g/dL (3.4-5.0); Alkaline Phosphatase 71 U/L (46-116); Anion Gap 2.4 mmol/L (3-11); BUN 11 mg/dL (7-18); Bilirubin, Total 0.4 mg/dL (0.2-1.0); CO2 32.6 mmol/L (21.0-32.0); CREATININE 0.7 mg/dL (0.55-1.02); Calcium 9.2 mg/dL (8.5-10.1); Chloride 99 mmol/L (98-107); Glucose 89 mg/dL (74-106); Potassium 4.1 mmol/L (3.5-5.1); Sodium 134 mmol/L (136-145); Total Protein 8.1 g/dL (6.4-8.2)
[2024-06-19 09:09] LABS: IgA 470 mg/dL (85-499); IgG 1421 mg/dL (610-1616); IgM 78 mg/dL (35-242); Kappa Free Light Chain 3.43 mg/dL (0.33-1.94); Lambda Free Light Chain 1.18 mg/dL (0.57-2.63)
[2024-06-19 14:03] LABS: Albumin 55.4 % (55.8-66.1); Albumin g/dL 4.3 g/dL (3.6-5.2); Total Protein 7.7 g/dL (6.3-8.2)
== END 2024-06-18 01:58 | disposition home or self-care (01) ==
PROVIDERS: Internal Medicine Hematology & Oncology; PCP Family Medicine; Visit Provider Nurse Practitioner Adult Health
DX: C90.01 Multiple myeloma in remission (principal)
CPT/HCPCS: 36415; 80053; 82784; 83883; 84165; 85025

== ENCOUNTER 2024-07-16 14:18 | Outpatient (CLI) | payer MEDICARE, BC, SELFPAY ==
[2024-07-16 14:03] LABS: Abs Immature Grans 0.01 10^3/uL (0.0-0.06); Absolute Basophil Count 0.02 10^3/uL (0.0-0.2); Absolute Eosinophil Count 0.17 10^3/uL (0.0-0.7); Absolute Lymphocyte Count 1.04 10^3/uL (1.2-3.4); Absolute Monocyte Count 0.22 10^3/uL (0.1-0.8); Absolute Neutrophil Count 1.37 10^3/uL (1.2-6.7); Basophils % 0.7 %; HCT 36.5 % (36.0-46.0); HGB 12.7 g/dL (11.2-15.7); Immature Grans % 0.4 %; Lymphocytes % 36.7 %; MCHC 34.8 % (32.0-36.0); MCV 98 fL (80-95); MPV 9.1 fL (8.0-11.0); Monocytes % 7.8 %; Neutrophils % 48.4 %; Platelet Count 173 10^3/uL (130-400); RBC 3.73 10^6/uL (3.93-5.22); RDW 12.3 % (11.7-14.6); WBC 2.83 10^3/uL (4.4-10.8)
[2024-07-16 15:32] LABS: ALT 25 U/L (14-59); AST 22 U/L (15-37); Albumin 3.8 g/dL (3.4-5.0); Alkaline Phosphatase 74 U/L (46-116); Anion Gap 6.8 mmol/L (3-11); BUN 15 mg/dL (7-18); Bilirubin, Total 0.4 mg/dL (0.2-1.0); CO2 29.2 mmol/L (21.0-32.0); CREATININE 0.8 mg/dL (0.55-1.02); Calcium 8.9 mg/dL (8.5-10.1); Chloride 101 mmol/L (98-107); Estimated GFR 77.27 (mL/min/1.73m2); Glucose 98 mg/dL (74-106); Potassium 4.2 mmol/L (3.5-5.1); Sodium 137 mmol/L (136-145); Total Protein 7.9 g/dL (6.4-8.2)
[2024-07-17 08:24] LABS: IgA 482 mg/dL (85-499); IgG 1469 mg/dL (610-1616); IgM 77 mg/dL (35-242); Kappa Free Light Chain 3.61 mg/dL (0.33-1.94); Lambda Free Light Chain 1.32 mg/dL (0.57-2.63)
[2024-07-17 12:44] LABS: Albumin 56.6 % (55.8-66.1); Albumin g/dL 4.4 g/dL (3.6-5.2); Total Protein 7.8 g/dL (6.3-8.2)
== END 2024-07-16 14:19 | disposition home or self-care (01) ==
LOC: LBO 14:21
PROVIDERS: PCP Family Medicine; Visit Provider Nurse Practitioner Adult Health
DX: C90.01 Multiple myeloma in remission (principal)
CPT/HCPCS: 36415; 80053; 82784; 83883; 84165; 85025

== ENCOUNTER 2024-08-13 04:32 | Outpatient (CLI) | payer MEDICARE, BC, SELFPAY ==
[2024-08-13 13:39] LABS: Abs Immature Grans 0.01 10^3/uL (0.0-0.06); Absolute Basophil Count 0.02 10^3/uL (0.0-0.2); Absolute Eosinophil Count 0.21 10^3/uL (0.0-0.7); Absolute Lymphocyte Count 1.15 10^3/uL (1.2-3.4); Absolute Monocyte Count 0.29 10^3/uL (0.1-0.8); Absolute Neutrophil Count 1.42 10^3/uL (1.2-6.7); Basophils % 0.6 %; Eosinophils % 6.8 %; HCT 35.7 % (36.0-46.0); HGB 12.5 g/dL (11.2-15.7); Immature Grans % 0.3 %; Lymphocytes % 37.1 %; MCH 33.7 pg (27.0-33.0); MCV 96 fL (80-95); MPV 9.3 fL (8.0-11.0); Monocytes % 9.4 %; Neutrophils % 45.8 %; Platelet Count 185 10^3/uL (130-400); RBC 3.71 10^6/uL (3.93-5.22); RDW 12.5 % (11.7-14.6); RDW-SD 44.1 fL
[2024-08-13 14:24] LABS: ALT 23 U/L (14-59); AST 29 U/L (15-37); Albumin 3.7 g/dL (3.4-5.0); Alkaline Phosphatase 70 U/L (46-116); Anion Gap 4.9 mmol/L (3-11); BUN 10 mg/dL (7-18); Bilirubin, Total 0.5 mg/dL (0.2-1.0); CO2 28.1 mmol/L (21.0-32.0); CREATININE 0.8 mg/dL (0.55-1.02); Chloride 100 mmol/L (98-107); Estimated GFR 77.27 (mL/min/1.73m2); Glucose 92 mg/dL (74-106); Potassium 4.3 mmol/L (3.5-5.1); Sodium 133 mmol/L (136-145); Total Protein 8.1 g/dL (6.4-8.2)
[2024-08-14 09:59] LABS: IgA 477 mg/dL (85-499); IgG 1503 mg/dL (610-1616); IgM 70 mg/dL (35-242); Kappa Free Light Chain 3.57 mg/dL (0.33-1.94); Lambda Free Light Chain 1.29 mg/dL (0.57-2.63)
[2024-08-14 13:13] LABS: Albumin 55.4 % (55.8-66.1); Albumin g/dL 4.2 g/dL (3.6-5.2); Total Protein 7.6 g/dL (6.3-8.2)
[2024-08-14 19:27] LABS: Vitamin B12 393 pg/mL (193-986)
== END 2024-08-13 04:33 | disposition home or self-care (01) ==
PROVIDERS: PCP Family Medicine; Visit Provider Nurse Practitioner Adult Health
DX: C90.01 Multiple myeloma in remission (principal); E53.8 Deficiency of other specified B group vitamins
CPT/HCPCS: 36415; 80053; 82784; 82607; 83883; 84165; 85025

== ENCOUNTER 2024-09-10 02:25 | Outpatient (CLI) | payer MEDICARE, BC, SELFPAY ==
[2024-09-10 13:26] LABS: Abs Immature Grans 0.01 10^3/uL (0.0-0.06); Absolute Basophil Count 0.02 10^3/uL (0.0-0.2); Absolute Eosinophil Count 0.05 10^3/uL (0.0-0.7); Absolute Lymphocyte Count 0.51 10^3/uL (1.2-3.4); Absolute Monocyte Count 0.19 10^3/uL (0.1-0.8); Absolute Neutrophil Count 3.85 10^3/uL (1.2-6.7); Basophils % 0.4 %; Eosinophils % 1.1 %; HCT 36.1 % (36.0-46.0); HGB 12.7 g/dL (11.2-15.7); Immature Grans % 0.2 %; MCH 34.1 pg (27.0-33.0); MCHC 35.2 % (32.0-36.0); MCV 97 fL (80-95); MPV 8.8 fL (8.0-11.0); Monocytes % 4.1 %; Neutrophils % 83.2 %; Platelet Count 162 10^3/uL (130-400); RBC 3.72 10^6/uL (3.93-5.22); RDW 12.4 % (11.7-14.6); RDW-SD 43.8 fL; WBC 4.63 10^3/uL (4.4-10.8)
[2024-09-10 14:11] LABS: ALT 28 U/L (14-59); AST 36 U/L (15-37); Albumin 3.9 g/dL (3.4-5.0); Alkaline Phosphatase 81 U/L (46-116); BUN 10 mg/dL (7-18); Bilirubin, Total 0.7 mg/dL (0.2-1.0); CREATININE 0.8 mg/dL (0.55-1.02); Calcium 8.9 mg/dL (8.5-10.1); Chloride 97 mmol/L (98-107); Estimated GFR 77.27 (mL/min/1.73m2); Glucose 108 mg/dL (74-106); Potassium 3.5 mmol/L (3.5-5.1); Sodium 132 mmol/L (136-145); Total Protein 8.4 g/dL (6.4-8.2); Vitamin B12 439 pg/mL (193-986)
[2024-09-11 08:49] LABS: IgA 521 mg/dL (85-499); IgG 1520 mg/dL (610-1616); IgM 84 mg/dL (35-242); Kappa Free Light Chain 3.69 mg/dL (0.33-1.94)
[2024-09-12 09:49] LABS: Albumin 55.3 % (55.8-66.1); Albumin g/dL 4.5 g/dL (3.6-5.2); Total Protein 8.1 g/dL (6.3-8.2)
== END 2024-09-10 02:26 | disposition home or self-care (01) ==
LOC: LBO 02:25
PROVIDERS: PCP Family Medicine; Visit Provider Nurse Practitioner Adult Health
DX: C90.01 Multiple myeloma in remission (principal); E53.8 Deficiency of other specified B group vitamins
CPT/HCPCS: 36415; 80053; 82784; 82607; 83883; 84165; 85025

== ENCOUNTER 2024-09-10 15:00 | Inpatient (IN) | payer MEDICARE, BC, SELFPAY ==
[2024-09-10] VITALS (61 sets, daily range): BP systolic 99–156; BP diastolic 54–71; PULSE 86–107; RESP 11–26; TEMP 36.8–39.5; O2SAT 89–98
--- NOTE | 2024-09-10 15:00 | DI.CT_ITS ---
Exam(s) CT BRAIN NECK CTA EXAM: CT BRAIN NECK CTA CLINICAL HISTORY: Worst ANDREW of life, fever, c/f SAH vs meningitis. TECHNIQUE: Imaging Protocol: Axial CT angiography was performed with multi-slice acquisition and mu lti-planar and/or 3D reconstructions. CONTRAST MATERIAL: Intravenous: Omnipaque 350 contrast volume:100 mL COMPARISON: CT ABD PELVIS WO CONTRAST from 01/25/[address] ABDOMEN PELVIS W from 09/04/2023 FINDINGS: CT Head W/O and W: Ventricles and Extra axial spaces: Normal in size and morphology for the patient's age. Hemorrhage: None. Cerebral parenchyma: No evidence of an acute territorial infarct. No mass effect. Midline shift: None. Brainstem/Cerebellum: Normal. Calvarium: Normal. Visualized Paranasal sinuses/Mastoids: Clear. Soft Tissues: Unremarkable. Enhancement: Unremarkable. CTA Neck W: Common Carotid: Right: No dissection, occlusion or significant stenosis. Left: No dissection, occlusion or significant stenosis. External Carotid: Right: No occlusion or significant stenosis. Left: No occlusion or significant stenosis. Internal Carotid: Right: No dissection, occlusion or significant stenosis. Left: No dissection, occlusion or significant stenosis. Vertebral Artery: Right: No dissection, occlusion or significant stenosis. Left: No dissection, occlusion or significant stenosis. Lung Apices: No acute pulmonary process is seen in the lung apices. Bones: Within normal limits for the patient's age. Soft Tissues: Normal. Thyroid gland: There is a 1.3 x 0.8 cm left thyroid nodule. Nonemergent thyroid ultrasound is recomm ended for further evaluation. CTA Brain W: Internal Carotid Arteries: Mild atherosclerotic calcification is present. No occlusion, aneurysm or significant stenosis is present. Anterior Cerebral Arteries: Right: No aneurysm, occlusion or significant stenosis. Left: No aneurysm, occlusion or significant stenosis. Middle Cerebral Arteries: Right: No aneurysm, occlusion or significant stenosis. Left: No aneurysm, occlusion or significant stenosis. Posterior Cerebral Arteries: Right: No aneurysm, occlusion or significant stenosis. Left: No aneurysm, occlusion or significant stenosis. Vertebral Arteries: Right: No aneurysm, occlusion or significant stenosis. Left: No aneurysm, occlusion or significant stenosis. Basilar Artery: No aneurysm, occlusion or significant stenosis. IMPRESSION: 1. No large vessel occlusion or significant stenosis on the CT angiography of the head. 2. No acute intracranial process. 3. No occlusion or significant stenosis on the CT angiography of the neck. 4. Left thyroid nodule. Nonemergent thyroid ultrasound is recommended for further evaluation. Unexpected findings RADIATION DOSE DELIVERED: Total DLP DATA REPOSITORY: All CT scans at this facility are submitted to the National Radiology Data Registry (NRDR) Dose Index Registry (DIR) with the [employer] (ACR). RADIATION OPTIMIZATION: All CT scans at this facility use at least one of these dose optimization te chniques: automated exposure control; mA and/or kV adjustment per patient size (includes targeted exa ms where dose is matched to clinical indication); or iterative reconstruction.
--- NOTE | 2024-09-10 15:11 | W.ED.GENAD ---
Discharge Plan Disposition Patient Disposition: Admit to [facility] Condition: Fair Discharge Details Chief Complaint: Headache Clinical Impression: Sepsis, Severe headache Primary Care Provider: Reyna Abrams ED Provider: Sarah Donnelly Home Meds and New Rx's Prescriptions: No Action nystatin 100,000 unit/gram cream 1 applic TP BID Qty: 30 1RF Patient Comments: not taking per pt lenalidomide [Revlimid] 5 mg capsule 5 mg PO DAILY ibuprofen 200 mg tablet 200 mg PO Q6H PRN acetaminophen 325 mg tablet 325 mg PO ONCE PRN triamcinolone acetonide 0.1 % cream 1 applic TP BID Qty: 30 1RF Patient Comments: pt not sure if taking omeprazole 40 mg capsule,delayed release(DR/EC) 40 mg PO DAILY Qty: 90 3RF buprenorphine HCl 150 mcg film 150 mcg buccal Q12H Qty: 60 5RF Patient Comments: pt not sure if still taking gabapentin 300 mg capsule 300 mg PO TID Qty: 270 3RF aspirin [Aspirin Low-Strength] 81 MG tablet,chewable 81 mg PO DAILY Patient Comments: 09-21-17 pt reports that she takes this med every other day. hb polyethylene glycol 3350 [Miralax] 17 gram/dose powder 8.5 g PO HS Qty: 0 0RF Rx Instructions: take a dose at bedtime if no BM during the day valacyclovir 500 mg tablet 500 mg PO BID Qty: 60 3RF acetaminophen 500 mg Tablet 1,000 mg PO Q8H PRN PRNQty: 60 0RF HPI General Mode of arrival: EMS. Date/Time Provider Initiated Documentation: 09/10/24 15:01. Limitations to Documentation: no limitations. Information obtained by: patient, EMS and old records reviewed. HPI Narrative: This is a 73-year-old female patient, with a past medical history significant for hypertension, multiple myeloma, and a remote history of endometrial cancer not currently on chemotherapy, brought in by EMS with a severe headache and change in mental status. The patient was going to the infusion clinic for a B12 infusion, while there was complaining of the worst headache of her life and EMS was summoned. She did have labs drawn this morning that showed a slightly low sodium to 132, patient was transported by EMS and was noted to be slightly tachycardic, and her mental status is reportedly not at her baseline, moaning and difficult to arouse without loud verbal stimuli. The patient reports that her headache started this morning, she has not had associated numbness or weakness in her body, but does feel generally fatigued. She denies shortness of breath or cough, dysuria, abdominal pain. Related Data Home Medications ?Medication ?Instructions ?Recorded ?Confirmed aspirin 81 mg chewable tablet 81 mg PO DAILY 08/19/14 04/13/24 (Aspirin Low-Strength) valacyclovir 500 mg tablet 500 mg PO BID #60 tabs 05/25/18 04/13/24 lenalidomide 5 mg capsule 5 mg PO DAILY 02/21/19 04/13/24 (Revlimid) acetaminophen 500 mg tablet 1,000 mg (2 x 500 mg) PO Q8H PRN 08/02/22 04/13/24 PRN #60 tabs polyethylene glycol 3350 17 8.5 g PO HS #0 grams 11/13/22 04/13/24 gram/dose oral powder (Miralax) triamcinolone acetonide 0.1 % 1 applic topical BID #30 grams 03/02/23 04/13/24 topical cream acetaminophen 325 mg tablet 325 mg PO ONCE PRN 04/05/23 04/13/24 ibuprofen 200 mg tablet 200 mg PO Q6H PRN 04/05/23 04/13/24 nystatin 100,000 unit/gram topical 1 applic topical BID #30 grams 10/21/23 04/13/24 cream buprenorphine HCl 150 mcg buccal 150 mcg buccal Q12H #60 ea 04/13/24 04/13/24 film omeprazole 40 mg capsule,delayed 40 mg PO DAILY #90 tab-caps 04/13/24 04/13/24 release gabapentin 300 mg capsule 300 mg PO TID #270 caps 08/07/24 Previous Rx's ?Medication ?Instructions ?Recorded valacyclovir 500 mg tablet 500 mg PO BID #60 tabs 05/25/18 acetaminophen 500 mg tablet 1,000 mg (2 x 500 mg) PO Q8H PRN 08/02/22 PRN #60 tabs polyethylene glycol 3350 17 8.5 g PO HS #0 grams 11/13/22 gram/dose oral powder (Miralax) triamcinolone acetonide 0.1 % 1 applic topical BID #30 grams 03/02/23 topical cream nystatin 100,000 unit/gram topical 1 applic topical BID #30 grams 10/21/23 cream buprenorphine HCl 150 mcg buccal 150 mcg buccal Q12H #60 ea 04/13/24 film omeprazole 40 mg capsule,delayed 40 mg PO DAILY #90 tab-caps 04/13/24 release gabapentin 300 mg capsule 300 mg PO TID #270 caps 08/07/24 Allergies Allergy/AdvReac Type Severity Reaction Status Date / Time iodine Allergy Intermediate rashes Verified 04/13/24 14:54 acetaminophen AdvReac Intermediate rash Verified 09/10/24 15:36 DUST Allergy Unknown sneezing Uncoded 04/13/24 14:54 MOLD AND SMUT Allergy Unknown respiratory Uncoded 04/13/24 14:54 General Stated Complaint: Headache RICKI: 2 Exam Narrative Exam Narrative: Gen: Awake and alert, appears acutely ill HEENT: Non-icteric sclera, PERRL at 3 mm bilaterally, patient appears photophobic Neck: Supple Lungs: No apparent respiratory distress, normal respiratory effort. CV: Appears well perfused, heart with tachycardic rate, regular rhythm, strong distal pulses Abdomen: Non-distended, soft, nontender to palpation without rigidity, rebound, or guarding MSK: Moves 4 extremities without apparent limitation in ROM Skin: Visualized skin without rashes, cyanosis. Neuro: Gait deferred due to significant illness, no obvious focal deficits or facial asymmetry. Speaks in mumbled sentences Course Vital Signs Vital signs: Vital Signs Temperature 39.5 C H 09/10/24 15:00 Pulse 107 H 09/10/24 15:00 Respiratory Rate 14 09/10/24 15:00 Blood Pressure 156/63 H 09/10/24 15:00 Pulse Oximetry 95 09/10/24 15:00 Temperature 39.5 C H 09/10/24 15:09 Temperature Source Oral 09/10/24 15:09 Pulse 107 H 09/10/24 15:09 Respiratory Rate 14 09/10/24 15:09 Blood Pressure 156/63 H 09/10/24 15:09 Pulse Oximetry 95 09/10/24 15:09 Oxygen Delivery Method Room Air 09/10/24 15:09 Oxygen Flow Rate 0 09/10/24 15:09 Lab/Test Results Lab/Test Results: 09/10/24 15:06 Blood Blood Culture - Pending 09/10/24 15:06 Blood Blood Culture - Pending Procedure Lumbar Puncture Date of Procedure: 09/10/24 Time of procedure: 17:15 Provider that performed the procedure: Sarah Donnelly Indication: Diagnostic Patient Consented: Written Sterility: Sterile Local anesthetic: Lidocaine 1% Amount of local anesthetic used(mL): 3 Placement Site: L3-L4 Interspace Spinal Needle Type: Other (20G) Needle Length: 3.5 inch Lumbar Puncture Procedure: Site Prepped, Sterile Drape Placed, 1% Lidocaine to skin and subcutaneous tissue with 25G needle, Introducer Needle Used, Spinal Needle Placed, Negative CSF Flow and Bone Contacted despite needle repositioning Patient Position: Other (Attempted in both positions) Number of Attempts(see previous attempts in note section): 3 Procedure Tolerated: Patient tolerated well Procedure Outcome: Unsuccessful Medical Decision Making This is a 73-year-old female patient presenting for evaluation of headache. On arrival to our emergency department she was also found to be tachycardic and febrile, and meets criteria for sepsis alert. Differential includes but is not limited to intracranial hemorrhage including subarachnoid hemorrhage, considered CVA, intracranial metastases, meningitis, encephalitis, and other sources of sepsis including bacteremia, pneumonia, urinary tract infection. Considered metabolic electrolyte derangements, kidney injury, anemia, dehydration, liver disease. The patient is not on chemotherapy, and is unlikely to be experiencing a neutropenic fever. She is certainly immunosuppressed given her history of multiple myeloma. Given my significant concern, I have ordered a broad laboratory workup which includes blood cultures, urinalysis, VBG, lactate, CBC, CMP, magnesium, troponin, and procalcitonin. I empirically ordered antibiosis to include 2 g of ceftriaxone, ampicillin, vancomycin, and dexamethasone given the concern for meningitis in an adult patient. I will provide the patient with acyclovir, though there is no reported history of herpes exposure. The patient will be taken to CT for CTA brain and neck to evaluate for aneurysm/intracranial hemorrhage, and given the altered duration and mental status that would warrant evaluation prior to lumbar puncture. Given the sepsis of unknown source I will also obtain a CT chest abdomen pelvis with contrast. I will provide the patient with a liter of IV fluids and a gram of IV Tylenol for her fever. - I reviewed the patient's laboratory studies, and note a very mild leukopenia to 3.7 without meeting criteria for neutropenia. No anemia, thrombocytopenia. VBG without acidosis or hypercarbia. Chemistry panel reveals a mild hyponatremia, no other electrolyte derangements nor evidence of kidney or severe liver injury, though she is noted to have an AST of 69. Initial troponin negative, procalcitonin is quite low, lactate 1.9. CT scans reviewed by myself, showing no evidence of intracranial hemorrhage, mass effect, nor abnormalities in the chest/abdomen/pelvis to account for her symptoms. A Lomeli catheter was placed with output of several 100 cc of yellow urine. Given the concern for PASSENGER CAR CONDUCTOR infection, a lumbar puncture was attempted by myself, and despite repositioning of both the patient and the needle was unfortunately unsuccessful. I discussed the case with the hospitalist, as I believe this patient should be admitted for sepsis of unknown origin without septic shock, and their team has graciously accepted her for ongoing workup and management by their team. They did request doxycycline given the potential for anaplasmosis in this patient with an elevated transaminase, slightly low platelet count and leukopenia. This was ordered in the emergency department as was a tick and Lyme panel. The patient will be transferred to the hospital service and remained hemodynamically appropriate while under my care. Sarah Donnelly MD Quality:[facility] Health Related Social Needs: Health related social needs education (Z55.6) Critical Care Time Critical Care Time Critical Care Time: Yes Total Critical Care Time: 45 Attestation: Upon my evaluation, this patient had a high probability of imminent or life-threatening deterioration due to sepsis of unknown source, altered mental status, which required my direct attention, intervention, and personal management. I have personally provided 45 minutes of critical care time exclusive of time spent on separately billable procedures. Time includes review of laboratory data, radiology results, discussion with consultants, and monitoring for potential decompensation. Interventions were performed as documented above. Sarah Donnelly MD [facility] All Active Problems (Updated 09/10/24 @ 17:37 by Sarah Donnelly MD) Severe headache (Acute) Sepsis (Acute) Insomnia (Chronic) Right hand paresthesia (Chronic) HTN (hypertension) (Chronic) Chronic narcotic dependence (Chronic) changed from morphine to buprenorphine Pain from bone metastases (Chronic) hx ofmorphine ER; managed by [facility] heme onc. Now on buprenorphine managed by CM. Radiation vulvitis (Chronic) Onychomycosis (Chronic) GERD (gastroesophageal reflux disease) (Chronic) Medical History (Updated 09/10/24 @ 17:37 by Sarah Donnelly MD) Complete small bowel obstruction s/p ROSALIA 09/04/23 History of radiation therapy Screening for malignant neoplasm of colon performed Hx SBO Multiple hospitalizations. [place] to be due to opioid-induced constipation. Resolves with bowel rest. 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 04/2011 Hyst and BSO at [facility] Path= stage A1, Gr 11 Chronic hepatitis B (12/29/16) Multiple myeloma in remission on revlimid Surgical History (Updated 10/21/23 @ 13:43 by Reyna Abrams MD) S/P exploratory laparotomy (09/2023) for recurrent bowel obstruction History of colonoscopy (~10/2022) Hx of cataract surgery Hx of cholecystectomy S/P hysterectomy History of cholecystectomy H/O breast biopsy Right, 1o'clock, 12cm from nipple, US-guided needle core biopsy: negative for malignancy. fibroadipose tissue with assoc hemorrhage. Family History Mother , AGE 84 No problems noted. Father , AGE 92 No problems noted. Sister , AGE 79 No problems noted. Sister No problems noted. Brother , AGE 68 Stomach cancer Brother No problems noted. Brother No problems noted. Brother No problems noted. Brother No problems noted. Son No problems noted. 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 Pets and animals: No Sexually active: No Do you think of yourself as: straight/heterosexual Current gender identity: female What is your relationship status?: How often do you talk on the phone with friends or family?: three or more times per week How often do you get together with friends or relatives?: decline to answer How often do you attend mandaen or druze services?: decline to answer Do you belong to any clubs or organized social groups?: decline to answer Panel score (0-1 are the most socially isolated patients): 2 What type of physical activity do you participate in: walking and running Duration: 30-45 minutes/day Frequency: 3-4 times per week Christianne/Restorationism: Lutheran Special christianne needs: No Seatbelt use: always Helmet use: Yes Helmet use: always Drive intox or ride w/intox local company tanker driver: No Working smoke detector in home: Yes Carbon monox detector in home: Yes Firearms in home: Yes Firearms unloaded and locked: Yes Do you feel safe at home: Yes Do you feel safe in your relationship?: Yes Victim of physical abuse: No Victim of emotional abuse: No Victim of sexual abuse: No Would you like helpful sources: No Additional Social history: [employer]
--- NOTE | 2024-09-10 15:15 | DI.CT_ITS ---
Exam(s) CT CHEST/ABD/PEL W EXAM: CT CHEST/ABD/PEL W CLINICAL HISTORY: Sepsis, hx endometrial Ca, unknown source TECHNIQUE: Imaging Protocol: Axial computed tomography images with coronal and sagittal reformatted images were created and reviewed. Lung Computer Aided Detection (CAD) was utilized. CONTRAST MATERIAL: Intravenous: Omnipaque 350 contrast volume:100 mL Oral: No COMPARISON: CT CT ABDOMEN PELVIS W from 09/04/[address] BRAIN NECK CTA from 09/10/2024 FINDINGS: The examination is limited due to patient motion artifact. CHEST: Tracheobronchial tree: Patent where visualized. No evidence of bronchiectasis. Pulmonary parenchyma: No consolidation or dominant measurable mass. Atelectasis seen in the lung base s. No pulmonary nodules are seen. Visualized thyroid gland: There is a 1.3 cm nodule seen in the left lobe of the thyroid gland. Nonem ergent thyroid ultrasound is recommended for further evaluation. Mediastinum and Julienne: No dominant adenopathy or fluid collection. The esophagus is unremarkable. The re is a small hiatal hernia. Pleura: No effusion or pneumothorax. Heart: Mild cardiomegaly. Coronary artery calcifications are present. No pericardial effusion. Pulmonary arteries: Due to the timing of the bolus, pulmonary embolus of evaluation is limited. No l arge central pulmonary embolism is present. Aorta: Thoracic aorta non-dilated. Atherosclerotic calcification is present. Lymph nodes: Within normal limits. Soft tissues: Unremarkable. Bones:Within normal limits for the patient's age. There are old healed rib fracture deformities. No new lytic or sclerotic lesions are seen in the bones. Old compression deformities are seen in the t horacic and lumbar spine. Age-appropriate degenerative changes are present. Old healed sternal frac ture is seen. ABDOMEN: Liver: Normal density. No measurable mass. Portal, Superior Mesenteric, and Splenic Veins: Unremarkable. Gallbladder and Biliary Tract: Status post cholecystectomy. The extrahepatic bile duct is stable in size. This likely reflects post cholecystectomy state. Pancreas: Normal density, no abnormal calcifications or inflammatory process. Spleen: Normal. Adrenals: No masses seen. Kidneys: Normal size, contour and axis. No radiodense stones or obstructive uropathy. No masses seen. Abdominal Aorta: Abdominal portion non-dilated. Atherosclerotic calcification is present. Bowel: There is no evidence of bowel obstruction. There is mild thickening of the wall of the distal stomach. This may be due to underdistention but infection/inflammation cannot be excluded. There i s a small hiatal hernia. There are anastomosis seen in the small bowel in the pelvis. The patient i s status post appendectomy. Peritoneal Cavity: No ascites, collection or mesenteric inflammatory response. No free air. Lymph Nodes: Within normal limits. Bones: Within normal limits for the patient's age. There is a left convex thoracolumbar scoliosis. The lumbar spine and pelvis are stable. Soft Tissues: Unremarkable. PELVIS: Bladder: Symmetric distention, no gross wall thickening. Reproductive Organs: Status post hysterectomy. Lymph Nodes: Within normal limits. Bones: Within normal limits. IMPRESSION: 1. Mild thickening of the wall of the distal stomach. This may be due to underdistention but infecti ous or inflammatory gastritis cannot be excluded. Please correlate clinically. 2. Otherwise no acute abdominal or pelvic process is seen. 3. No acute pulmonary process. 4. Left thyroid nodule. Nonemergent thyroid ultrasound is recommended for further evaluation. Unexpected findings RADIATION DOSE DELIVERED: Total DLP DATA REPOSITORY: All CT scans at this facility are submitted to the National Radiology Data Registry (NRDR) Dose Index Registry (DIR) with the [employer] (ACR). RADIATION OPTIMIZATION: All CT scans at this facility use at least one of these dose optimization te chniques: automated exposure control; mA and/or kV adjustment per patient size (includes targeted exa ms where dose is matched to clinical indication); or iterative reconstruction.
[2024-09-10 15:37] LABS: BE (Venous) 3 mmol/L (-2-3); HCO3 (Venous) 28 mmol/L (23-28); Lactate 1.9 mmol/L (<or=2.0); O2 Sat (Venous) 42 %; TCO2 (Venous) 25 mmol/L (24-29); pCO2 (Venous) 45 mmHg (41-51); pH (Venous) 7.41 (7.31-7.41); pO2 (Venous) 23 mmHg
[2024-09-10 15:38] LABS: Abs Immature Grans 0.01 10^3/uL (0.0-0.06); Absolute Basophil Count 0.01 10^3/uL (0.0-0.2); Absolute Eosinophil Count 0.01 10^3/uL (0.0-0.7); Absolute Lymphocyte Count 0.24 10^3/uL (1.2-3.4); Absolute Monocyte Count 0.03 10^3/uL (0.1-0.8); Absolute Neutrophil Count 3.41 10^3/uL (1.2-6.7); Basophils % 0.3 %; Eosinophils % 0.3 %; HCT 39.3 % (36.0-46.0); Immature Grans % 0.3 %; Lymphocytes % 6.5 %; MCH 34.1 pg (27.0-33.0); MCHC 35.6 % (32.0-36.0); MCV 96 fL (80-95); MPV 9.3 fL (8.0-11.0); Monocytes % 0.8 %; Neutrophils % 91.8 %; Platelet Count 141 10^3/uL (130-400); RDW 12.4 % (11.7-14.6); RDW-SD 43.6 fL; WBC 3.72 10^3/uL (4.4-10.8)
[2024-09-10] MEDS: Omnipaque 350 MG/ML 100 ML BTL IJ (16:09)
[2024-09-10] MEDS: cefTRIAXone 2 GM/50 ML BAG IVPB (16:10)
[2024-09-10] MEDS: Normal Saline - Diluent 50 ML VIAL IJ (16:11)
[2024-09-10 16:27] LABS: Procalcitonin < 0.10 ng/mL
[2024-09-10 16:28] LABS: ALT 49 U/L (14-59); AST 69 U/L (15-37); Albumin 4.2 g/dL (3.4-5.0); Alkaline Phosphatase 92 U/L (46-116); Anion Gap 8.5 mmol/L (3-11); BUN 10 mg/dL (7-18); Bilirubin, Total 0.9 mg/dL (0.2-1.0); CO2 28.5 mmol/L (21.0-32.0); CREATININE 0.9 mg/dL (0.55-1.02); Calcium 9.3 mg/dL (8.5-10.1); Chloride 94 mmol/L (98-107); Estimated GFR 67.08 (mL/min/1.73m2); Glucose 117 mg/dL (74-106); Magnesium 1.9 mg/dL (1.8-2.4); Potassium 3.5 mmol/L (3.5-5.1); Sodium 131 mmol/L (136-145); Total Protein 9.2 g/dL (6.4-8.2); Troponin I 5 ng/L (<or=51)
[2024-09-10] MEDS: ACETAMINOPHEN 1,000 MG/100 ML BAG 400 MG IVPB (16:31)
[2024-09-10] MEDS: Dexamethasone 10 MG/ML VIAL IVP (16:33)
[2024-09-10 16:45] LABS: Prothrombin Time 10.3 sec (9.1-11.1)
[2024-09-10] MEDS: AMPICILLIN SODIUM 2 GM in Normal Saline 100 ML IVPB ×2 (16:50→22:24)
[2024-09-10] MEDS: VANCOMYCIN/WATER (PEG) 1.5 GM/300 ML BAG IVPB (16:51)
[2024-09-10] MEDS: Lactated Ringers 1,000 ML 1000 ML IV (17:31)
--- NOTE | 2024-09-10 17:46 | W.PM.HP.N ---
Date of service: 09/10/24 Time of Service: 17:46 Assessment and Plan Assessment and plan (1) Sepsis: Status: Acute Assessment and plan: Criteria met with tachycardia, and fever Source unknown suspecting meningitis and covering for both bacterial and viral; patient on oral antiviral chronically Blood cultures pending Tick born disease panel pending Treating with meningitis regimen for patient over 50 years old: Ceftriaxone, vancomycin, ampicillin, acyclovir and doxycycline to cover anaplasmosis as patient reported being bitten by several ticks over the past week (2) Severe headache: Status: Acute Assessment and plan: As needed Tylenol Continue home meds for chronic pain? gabapentin 300 oral 3 times daily and as needed ibuprofen buprenorphine 150 mics to 12 hours to be verified- Med rec ordered (3) Right hand paresthesia: Status: Chronic (4) HTN (hypertension): Status: Chronic (5) GERD (gastroesophageal reflux disease): Status: Chronic (6) On deep vein thrombosis (DVT) prophylaxis: Status: Acute Assessment and plan: On Lovenox Discussed with Dr. Costa History of Present Illness History of Present Illness Chief Complaint: Severe headache, AMS Narrative: This 73-year-old female patient, with a past medical history significant for hypertension, multiple myeloma, and a remote history of endometrial cancer not currently on chemotherapy presented to the ED at [facility] via EMS for severe headache and acute mental status change from the [facility] clinic. The patient was tachycardic, not hypotensive, difficult to arouse without loud verbal stimuli. Head CT was negative for any acute changes. Chest/abdomen/pelvic CT showed no actionable items. Blood work showed mild leukopenia without ANC meeting neutropenic precaution criteria, chemistry showed mild hyponatremia with sodium at 126 without lactemia or other electrolyte imbalance or TEX. Lumbar puncture for SWITCHER infection concerns was attempted without success. Treatment was initiated for concerns of meningitis with ceftriaxone, ampicillin, vancomycin, dexamethasone IV and IV Acyclovir. This was all consulted and patient admitted to the medical surgical floor for sepsis of unknown origin and ongoing treatment for meningitis coverage as well as tickborne disease. Doxycycline added to the regimen as per hospitalist recommendation. Meningeal signs Full CODE STATUS confirmed. The patient reported headache, chills dizziness, nausea subjective fevers, over the last 7 days multiple tick bites. Patient denied chest pain, abdominal pain, vomiting, diarrhea, dysuria. PFSH All Active Problems (Updated 09/10/24 @ 19:41 by Gale Ames APRN) On deep vein thrombosis (DVT) prophylaxis (Acute) Severe headache (Acute) Sepsis (Acute) Insomnia (Chronic) Right hand paresthesia (Chronic) HTN (hypertension) (Chronic) Chronic narcotic dependence (Chronic) changed from morphine to buprenorphine Pain from bone metastases (Chronic) hx ofmorphine ER; managed by [facility] [place]. Now on buprenorphine managed by CM. Radiation vulvitis (Chronic) Onychomycosis (Chronic) GERD (gastroesophageal reflux disease) (Chronic) Medical History (Updated 09/10/24 @ 19:41 by Gale Ames APRN) Complete small bowel obstruction s/p ROSALIA 09/04/23 History of radiation therapy Screening for malignant neoplasm of colon performed Hx SBO Multiple hospitalizations. [place] to be due to opioid-induced constipation. Resolves with bowel rest. 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 04/2011 Hyst [place] [facility] Path= stage A1, Gr 11 Chronic hepatitis B (12/29/16) Multiple myeloma in remission on revlimid Surgical History (Updated 10/21/23 @ 13:43 by Reyna Abrams MD) S/P exploratory laparotomy (09/2023) for recurrent bowel obstruction History of colonoscopy (~10/2022) Hx of cataract surgery Hx of cholecystectomy S/P hysterectomy History of cholecystectomy H/O breast biopsy Right, 1o'clock, 12cm from nipple, US-guided needle core biopsy: negative for malignancy. fibroadipose tissue with assoc hemorrhage. Family History Mother , AGE 84 No problems noted. Father , AGE 92 No problems noted. Sister , AGE 79 No problems noted. Sister No problems noted. Brother , AGE 68 Stomach cancer Brother No problems noted. Brother No problems noted. Brother No problems noted. Brother No problems noted. Son No problems noted. 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 Pets and animals: No Sexually active: No Do you think of yourself as: straight/heterosexual Current gender identity: female What is your relationship status?: How often do you talk on the phone with friends or family?: three or more times per week How often do you get together with friends or relatives?: decline to answer How often do you attend shinto or church services?: decline to answer Do you belong to any clubs or organized social groups?: decline to answer Panel score (0-1 are the most socially isolated patients): 2 What type of physical activity do you participate in: walking and running Duration: 30-45 minutes/day Frequency: 3-4 times per week Christianne/Mandaen: Religious Special christianne needs: No Seatbelt use: always Helmet use: Yes Helmet use: always Drive intox or ride w/intox automobile drivers: No Working smoke detector in home: Yes Carbon monox detector in home: Yes Firearms in home: Yes Firearms unloaded and locked: Yes Do you feel safe at home: Yes Do you feel safe in your relationship?: Yes Victim of physical abuse: No Victim of emotional abuse: No Victim of sexual abuse: No Would you like helpful sources: No Additional Social history: UTAP Meds Allergies and Home Medications Allergies Allergy/AdvReac Type Severity Reaction Status Date / Time iodine Allergy Intermediate rashes Verified 04/13/24 14:54 acetaminophen AdvReac Intermediate rash Verified 09/10/24 15:36 DUST Allergy Unknown sneezing Uncoded 04/13/24 14:54 MOLD AND SMUT Allergy Unknown respiratory Uncoded 04/13/24 14:54 Home Medications ?Medication ?Instructions ?Recorded ?Confirmed ?Type aspirin 81 mg chewable tablet 81 mg PO DAILY 08/19/14 04/13/24 History (Aspirin Low-Strength) valacyclovir 500 mg tablet 500 mg PO BID #60 tabs 05/25/18 04/13/24 Rx lenalidomide 5 mg capsule 5 mg PO DAILY 02/21/19 04/13/24 History (Revlimid) acetaminophen 500 mg tablet 1,000 mg (2 x 500 mg) PO Q8H PRN 08/02/22 04/13/24 Rx PRN #60 tabs polyethylene glycol 3350 17 8.5 g PO HS #0 grams 11/13/22 04/13/24 Rx gram/dose oral powder (Miralax) triamcinolone acetonide 0.1 % 1 applic topical BID #30 grams 03/02/23 04/13/24 Rx topical cream acetaminophen 325 mg tablet 325 mg PO ONCE PRN 04/05/23 04/13/24 History ibuprofen 200 mg tablet 200 mg PO Q6H PRN 04/05/23 04/13/24 History nystatin 100,000 unit/gram topical 1 applic topical BID #30 grams 10/21/23 04/13/24 Rx cream buprenorphine HCl 150 mcg buccal 150 mcg buccal Q12H #60 ea 04/13/24 04/13/24 Rx film omeprazole 40 mg capsule,delayed 40 mg PO DAILY #90 tab-caps 04/13/24 04/13/24 Rx release gabapentin 300 mg capsule 300 mg PO TID #270 caps 08/07/24 Rx Exam Narrative Exam Narrative: 23 years old patient appearing older than stated age, no meningeal signs, no JVD, without acute distress, easily arousable , alert oriented x 4, no new tingling or numbness to extremities, no neurological focal deficit, clear lungs bilaterally, S1-S2 regular, positive pulses all 4 extremities, abdomen is nondistended soft and nontender, no bladder distention Results Labs 09/10/24 15:27 09/10/24 15:27 Labs: Laboratory Results - last 24 hr 09/10/24 15:27 WBC 3.72 L RBC 4.10 Hgb 14.0 Hct 39.3 MCV 96 H MCH 34.1 H MCHC 35.6 RDW 12.4 Plt Count 141 MPV 9.3 Immature Gran % 0.3 Neutrophils % 91.8 Lymphocytes % 6.5 Monocytes % 0.8 Eosinophils % 0.3 Basophils % 0.3 Nucleated RBC % 0.0 Absolute Neutrophils 3.41 Absolute Lymphocytes 0.24 L Absolute Monocytes 0.03 L Absolute Eosinophils 0.01 Absolute Basophils 0.01 PT 10.3 INR 1.0 VBG pH 7.41 VBG pCO2 45 VBG pO2 23 VBG HCO3 28 VBG Total CO2 25 VBG O2 Saturation 42 VBG Base Excess 3 VBG Lactate 1.9 Sodium 131 L Potassium 3.5 Chloride 94 L Carbon Dioxide 28.5 Anion Gap 8.5 BUN 10 Creatinine 0.9 Est GFR (CKD-EPI 2020) 67.08 Glucose 117 H Calcium 9.3 Magnesium 1.9 Total Bilirubin 0.9 AST 69 H ALT 49 Alkaline Phosphatase 92 Troponin I 5 Total Protein 9.2 H Albumin 4.2 Procalcitonin < 0.10 Last Vital Signs Temp 39.5 C H 09/10/24 15:09 Pulse 107 H 09/10/24 15:09 Resp 14 09/10/24 15:09 BP 156/63 H 09/10/24 15:09 Pulse Ox 95 09/10/24 15:09 Time Spent Time spent with Patient: >75 minutes Time was spent: preparing to see the patient(eg.review tests), obtaining and/or reviewing separately otained hiistory, ordering medications,tests, procedures, referring, communicating with other health direct care provider, indepentently interpreting results, counseling the patient and care coordination
[2024-09-10 18:17] LABS: Troponin I 5 ng/L (<or=51)
[2024-09-10 18:23] LABS: Bilirubin Negative (Negative); Blood Trace-intact (Negative); Clarity Clear (Clear); Glucose Negative (Negative); Ketones Negative (Negative); Leukocyte Esterase Negative (Negative); Nitrite Negative (Negative); Specific Gravity 1.015 (1.005-1.025); Urobilinogen 0.2 mg/dL (Up to 0.2); pH 7.5 (5-8)
[2024-09-10 18:32] LABS: Bacteria Negative HPF (Negative); C & S Indicated? No; Casts Negative LPF (Negative); Crystals Negative HPF (Negative); Epithelial Cells Negative HPF (Negative); Mucus Negative (Negative); RBC 0-2 HPF (0-2); WBC Negative HPF (0-5)
[2024-09-10] MEDS: Ondansetron 4 MG/2 ML VIAL (18:35)
[2024-09-10] MEDS: DOXYCYCLINE 100 MG in Normal Saline 100 ML IVPB (18:51)
--- NOTE | 2024-09-10 21:02 | TELEP.MEDR_ITS ---
Date of service: 09/10/24 Time of Service: 21:02 Telepharmacy Home Med Rec Allergies Allergies: iodine Allergy (Intermediate, Verified 04/13/24 14:54) rashes acetaminophen Adverse Reaction (Intermediate, Verified 09/10/24 15:36) rash DUST Allergy (Unknown, Uncoded 04/13/24 14:54) sneezing MOLD AND SMUT Allergy (Unknown, Uncoded 04/13/24 14:54) respiratory Interview Person Interviewed: Pt Quality Quality of Interview/Accuracy of Medication List: Fair Sources Sources used to compile medication list: [place] Medication List and Patient List Changes made to Home Medication List: ADDITIONS: Hydrocortisone 1% aaa qday prn DELETIONS: APAP 325 mg (order for 1000 mg still active) Ibuprofen Nystatin Triamcinolone CHANGES: ASA changed from qday to qhs Omeprazole changed from scheduled to prn Polyethylene glycol changed from scheduled to prn Additional Notes Additional Notes: Pt reports that she was supposed to start Revlimid tonight (09/10/24). Pt reports she needs buprenorphine bid at 1000 and 2200 or she goes crazy, cannot sleep. Pt reports that she is supposed to take gabapentin tid but she often forgets midday dose and just takes it bid. Recommended Changes Recommended Changes(reason for recommendation): None. Attestation: The home medication list is now updated to the best of my knowledge and is ready to be reconciled by the provider. Please contact the TelePharmacy Medication Reconciliation Pharmacist at for any questions.
[2024-09-10 21:20] LABS: Troponin I 7 ng/L (<or=51)
[2024-09-10] MEDS: Pantoprazole 40 MG VIAL IVP (21:47)
[2024-09-10] MEDS: Normal Saline Flush 10 ML SYR IVP ×2 (21:47→21:48)
[2024-09-10] MEDS: Enoxaparin 40 MG/0.4 ML SYR SC (21:49)
[2024-09-10] MEDS: Aspirin 81 MG CHEW PO (21:50)
[2024-09-10] MEDS: Gabapentin 300 MG CAP PO (21:50)
[2024-09-10] MEDS: Ibuprofen 400 MG TAB PO (23:37)
[2024-09-11] MEDS: AMPICILLIN SODIUM 2 GM in Normal Saline 100 ML IVPB ×2 (02:49→05:47)
[2024-09-11 03:04] VITALS: BP 94/57; PULSE 86; RESP 19; TEMP 36.9; O2SAT 98
[2024-09-11] MEDS: oxyCODONE 5 MG TAB PO (03:22)
[2024-09-11] MEDS: Water,Injection,Sterile 10 ML VIAL (03:23)
[2024-09-11] MEDS: VANCOMYCIN 1,250 MG in Normal Saline 250 ML 166.667 MG IVPB (03:25)
[2024-09-11] MEDS: cefTRIAXone 2 GM/50 ML BAG IVPB (04:47)
--- NOTE | 2024-09-11 06:08 | W.PC.ACHO ---
Registration Status: Primary Language: Preferred Language: ED Information & Data Chief Complaint Headache 09/10/24 20:02 Chief Complaint Headache 09/10/24 15:11 Triage Note started this AM with 09/10/24 15:00 headache,& nausea. lethargic and moaning with EMS HX recent low sodium Labs drawn this morning at [facility], Multiple myloma Medical / Surgical History (Last Updated 10/21/23 @ 13:43 by Reyna Abrams MD) Complete small bowel obstruction History of radiation therapy Screening for malignant neoplasm of colon performed Hx SBO Malaria Prabhu Barbour auricular syndrome Disseminated zoster Psoriasis Malignant neoplasm of uterus Chronic hepatitis B (12/29/16) Multiple myeloma in remission (Last Updated 10/21/23 @ 13:43 by Reyna Abrams MD) S/P exploratory laparotomy (09/2023) History of colonoscopy (~10/2022) Hx of cataract surgery Hx of cholecystectomy S/P hysterectomy History of cholecystectomy H/O breast biopsy Most Recent Vital Signs Temperature 36.9 C 09/11/24 03:04 Temperature Source Tympanic 09/11/24 03:04 Pulse 86 09/11/24 03:04 Pulse Rhythm Regular 09/10/24 20:30 Pulse 88 09/10/24 19:46 Respiratory Rate 19 09/11/24 03:04 Respiratory Effort Normal 09/10/24 20:30 Respiratory Depth Normal 09/10/24 20:30 Respiratory Pattern Normal 09/10/24 20:30 Blood Pressure 94/57 L 09/11/24 03:04 Blood Pressure Mean 69 09/11/24 03:04 Pulse Oximetry 98 09/11/24 03:04 Oxygen Delivery Method Room Air 09/11/24 03:04 Oxygen Flow Rate 0 09/11/24 03:04 Pain Level 10 09/11/24 03:22 Allergies iodine Allergy (Intermediate, Verified 04/13/24 14:54) rashes RASH AND SWELLING acetaminophen Adverse Reaction (Intermediate, Verified 09/10/24 15:36) rash DUST Allergy (Unknown, Uncoded 04/13/24 14:54) sneezing respiratory sneezing MOLD AND SMUT Allergy (Unknown, Uncoded 04/13/24 14:54) respiratory respiratory sneezing Active Medications Generic Name Dose Route Start Last Admin Trade Name Freq PRN Reason Stop Dose Admin Aspirin 81 mg 09/10/24 21:00 09/10/24 21:50 Aspirin 81 Mg Chew PO 81 mg Q48H YESSENIA Administration Enoxaparin Sodium 40 mg 09/10/24 22:00 09/10/24 21:49 Enoxaparin 40 Mg/0.4 Ml Syr SC 40 mg Q24H YESSENIA Administration Gabapentin 300 mg 09/10/24 20:00 09/10/24 21:50 Gabapentin 300 Mg Cap PO 300 mg TID YESSENIA Administration Acyclovir Sodium 650 mg/ 250 mls @ 250 mls/hr 09/10/24 20:00 09/11/24 04:45 Sodium Chloride IVPB Infused Q8H YESSENIA Infusion Ceftriaxone Sodium/Dextrose 2 gm in 50 mls @ 100 mls/hr 09/11/24 02:00 09/11/24 04:47 Rocephin IVPB 100 mls/hr Q12H YESSENIA Administration Ampicillin Sodium 2 gm/ Sodium 100 mls @ 200 mls/hr 09/10/24 22:00 09/11/24 05:47 Chloride IVPB 200 mls/hr Q4H YESSENIA Administration Vancomycin HCl 1,250 mg/ 250 mls @ 166.667 mls/hr 09/11/24 02:00 09/11/24 03:25 Sodium Chloride IVPB 166.667 mls/hr Q24H YESSENIA Administration Ibuprofen 400 mg 09/10/24 20:27 09/10/24 23:37 Ibuprofen 400 Mg Tab PO 400 mg Q6H PRN PRN Administration Pantoprazole Sodium 40 mg 09/10/24 20:27 09/10/24 21:47 Pantoprazole 40 Mg Vial IVP 40 mg DAILY YESSENIA Administration Polyethylene Glycol 8.6 gm 09/10/24 21:00 09/10/24 23:05 Polyethylene Glycol 3350 17 Gm Packet PO Not Given HS YESSENIA Sodium Chloride 0 ml 09/10/24 20:00 09/10/24 21:47 Normal Saline Flush 10 Ml Syr IVP 10 ml BID YESSENIA Administration Sodium Chloride 0 ml 09/10/24 20:27 09/10/24 21:49 Normal Saline Flush 10 Ml Syr IVP Not Given BID YESSENIA IV IV Catheter Type [Right Peripheral IV Antecubital] IV Catheter Type [Left Forearm Peripheral IV ] IV Catheter Gauge [Right 18 Antecubital] IV Catheter Gauge [Left 20 Forearm] Diagnostics 09/11/24 09/10/2409/10/25 Range/Units 05:35 20:45 17:37 WBC Pending (4.4-10.8) 10^3/uL RBC Pending (3.93-5.22) 10^6/uL Hgb Pending (11.2-15.7) g/dL Hct Pending (36.0-46.0) % MCV Pending (80-95) fL MCH Pending (27.0-33.0) pg MCHC Pending (32.0-36.0) % RDW Pending (11.7-14.6) % Plt Count Pending (130-400) 10^3/uL MPV Pending (8.0-11.0) fL Immature Gran % Pending % Neutrophils % Pending % Lymphocytes % Pending % Monocytes % Pending % Eosinophils % Pending % Basophils % Pending % Nucleated RBC % (0.0-0.3) % Absolute Neutrophils Pending (1.2-6.7) 10^3/uL Absolute Lymphocytes Pending (1.2-3.4) 10^3/uL Absolute Monocytes Pending (0.1-0.8) 10^3/uL Absolute Eosinophils Pending (0.0-0.7) 10^3/uL Absolute Basophils Pending (0.0-0.2) 10^3/uL PT (9.1-11.1) sec INR (0.9-1.1) VBG pH (7.31-7.41) VBG pCO2 (41-51) mmHg VBG pO2 mmHg VBG HCO3 (23-28) mmol/L VBG Total CO2 (24-29) mmol/L VBG O2 Saturation % VBG Base Excess (-2-3) mmol/L VBG Lactate (<or=2.0) mmol/L Sodium Pending (136-145) mmol/L Potassium Pending (3.5-5.1) mmol/L Chloride Pending (98-107) mmol/L Carbon Dioxide Pending (21.0-32.0) mmol/L Anion Gap Pending (3-11) mmol/L BUN Pending (7-18) mg/dL Creatinine Pending (0.55-1.02) mg/dL Est GFR (CKD-EPI 2020) Pending (mL/min/1.73m2) Glucose Pending (74-106) mg/dL Calcium Pending (8.5-10.1) mg/dL Magnesium (1.8-2.4) mg/dL Total Bilirubin Pending (0.2-1.0) mg/dL AST Pending (15-37) U/L ALT Pending (14-59) U/L Alkaline Phosphatase Pending (46-116) U/L Troponin I 7 5 (<or=51) ng/L Total Protein Pending (6.4-8.2) g/dL Albumin Pending (3.4-5.0) g/dL Procalcitonin ng/mL Urine Color Yellow (Yellow) Urine Clarity Clear (Clear) Urine pH 7.5 (5-8) Ur Specific [place] 1.015 (1.005-1.025) Urine Protein Negative (Neg-Trace) mg/dL Urine Ketones Negative (Negative) mg/dL Urine Blood Trace-intact H (Negative) Urine Nitrite Negative (Negative) Urine Bilirubin Negative (Negative) Urine Urobilinogen 0.2 (Up to 0.2) mg/dL Ur Leukocyte Esterase Negative (Negative) Urine RBC 0-2 (0-2) HPF Urine WBC Negative (0-5) HPF Ur Epithelial Cells Negative (Negative) HPF Urine Crystals Negative (Negative) HPF Urine Bacteria Negative (Negative) HPF Urine Casts Negative (Negative) LPF Urine Mucus Negative (Negative) Ur Culture Indicated? No Urine Glucose Negative (Negative) mg/dL B. divergens/MO-1 PCR Babesia duncani (PCR) Babesia microti DNA PCR Lyme Disease Antibody E.chaffeensis DNA (PCR) E.ewingii/canis DNA PCR E.muris eauclairensis (PCR) A. phagocytophilum (PCR) Blood B. miyamotoi (PCR) 09/10/24 Range/Units 15:27 WBC 3.72 L (4.4-10.8) 10^3/uL RBC 4.10 (3.93-5.22) 10^6/uL Hgb 14.0 (11.2-15.7) g/dL Hct 39.3 (36.0-46.0) % MCV 96 H (80-95) fL MCH 34.1 H (27.0-33.0) pg MCHC 35.6 (32.0-36.0) % RDW 12.4 (11.7-14.6) % Plt Count 141 (130-400) 10^3/uL MPV 9.3 (8.0-11.0) fL Immature Gran % 0.3 % Neutrophils % 91.8 % Lymphocytes % 6.5 % Monocytes % 0.8 % Eosinophils % 0.3 % Basophils % 0.3 % Nucleated RBC % 0.0 (0.0-0.3) % Absolute Neutrophils 3.41 (1.2-6.7) 10^3/uL Absolute Lymphocytes 0.24 L (1.2-3.4) 10^3/uL Absolute Monocytes 0.03 L (0.1-0.8) 10^3/uL Absolute Eosinophils 0.01 (0.0-0.7) 10^3/uL Absolute Basophils 0.01 (0.0-0.2) 10^3/uL PT 10.3 (9.1-11.1) sec INR 1.0 (0.9-1.1) VBG pH 7.41 (7.31-7.41) VBG pCO2 45 (41-51) mmHg VBG pO2 23 mmHg VBG HCO3 28 (23-28) mmol/L VBG Total CO2 25 (24-29) mmol/L VBG O2 Saturation 42 % VBG Base Excess 3 (-2-3) mmol/L VBG Lactate 1.9 (<or=2.0) mmol/L Sodium 131 L (136-145) mmol/L Potassium 3.5 (3.5-5.1) mmol/L Chloride 94 L (98-107) mmol/L Carbon Dioxide 28.5 (21.0-32.0) mmol/L Anion Gap 8.5 (3-11) mmol/L BUN 10 (7-18) mg/dL Creatinine 0.9 (0.55-1.02) mg/dL Est GFR (CKD-EPI 2020) 67.08 (mL/min/1.73m2) Glucose 117 H (74-106) mg/dL Calcium 9.3 (8.5-10.1) mg/dL Magnesium 1.9 (1.8-2.4) mg/dL Total Bilirubin 0.9 (0.2-1.0) mg/dL AST 69 H (15-37) U/L ALT 49 (14-59) U/L Alkaline Phosphatase 92 (46-116) U/L Troponin I 5 (<or=51) ng/L Total Protein 9.2 H (6.4-8.2) g/dL Albumin 4.2 (3.4-5.0) g/dL Procalcitonin < 0.10 ng/mL Urine Color (Yellow) Urine Clarity (Clear) Urine pH (5-8) Ur Specific [place] (1.005-1.025) Urine Protein (Neg-Trace) mg/dL Urine Ketones (Negative) mg/dL Urine Blood (Negative) Urine Nitrite (Negative) Urine Bilirubin (Negative) Urine Urobilinogen (Up to 0.2) mg/dL Ur Leukocyte Esterase (Negative) Urine RBC (0-2) HPF Urine WBC (0-5) HPF Ur Epithelial Cells (Negative) HPF Urine Crystals (Negative) HPF Urine Bacteria (Negative) HPF Urine Casts (Negative) LPF Urine Mucus (Negative) Ur Culture Indicated? Urine Glucose (Negative) mg/dL B. divergens/MO-1 PCR Pending Babesia duncani (PCR) Pending Babesia microti DNA PCR Pending Lyme Disease Antibody Pending E.chaffeensis DNA (PCR) Pending E.ewingii/canis DNA PCR Pending E.muris eauclairensis (PCR) Pending A. phagocytophilum (PCR) Pending Blood B. miyamotoi (PCR) Pending 09/10/24 16:30 Blood Culture - Preliminary Blood Gram positive cocci 09/10/24 15:27 Blood Culture - Preliminary Blood Gram positive cocci Intake and Output - 24 Hour Total 09/10/24 14:55 thru 09/11/24 04:45 Intake Total 2250 Output Total 2500 Balance -250 Weight 59.3 kg Intake: IV 2250 Output: Urine 2500 Other: Urine Color Yellow Urine Appearance Clear Urinary Catheter Urinary Catheter Date of 09/10/24 Insertion [Urethral (Lomeli)] Time of insertion [Urethral ( 16:30 Lomeli)] Problems (Last Updated 10/21/23 @ 13:43 by Reyna Abrams MD) On deep vein thrombosis (DVT) prophylaxis (Acute) Severe headache (Acute) Sepsis (Acute) Right hand paresthesia (Chronic) HTN (hypertension) (Chronic) GERD (gastroesophageal reflux disease) (Chronic) v v v v v v v v v Sending and/or Receiving Nurses: Please use comment section below to note any information pertinent to the patient hand-off not included above. Information / Comments: Arrives from Cancer center with ANDREW, nausea, lethargy and fever. Lumbar puncture done ? meningitis, tick panel, and IV abx started. A&Ox4 now, med rec to be done by [facility]. Report received from: Pinky Ray RN
[2024-09-11] MEDS: DOXYCYCLINE 100 MG in Normal Saline 100 ML IVPB ×2 (06:30→18:11)
[2024-09-11 07:06] LABS: Abs Immature Grans 0.03 10^3/uL (0.0-0.06); Absolute Basophil Count 0.02 10^3/uL (0.0-0.2); Basophils % 0.3 %; HCT 27.6 % (36.0-46.0); HGB 9.7 g/dL (11.2-15.7); MCH 33.3 pg (27.0-33.0); MCHC 35.1 % (32.0-36.0); MCV 95 fL (80-95); MPV 8.9 fL (8.0-11.0); Platelet Count 129 10^3/uL (130-400); RBC 2.91 10^6/uL (3.93-5.22); RDW 12.2 % (11.7-14.6); RDW-SD 42.5 fL; WBC 5.85 10^3/uL (4.4-10.8)
[2024-09-11 07:25] LABS: ALT 85 U/L (14-59); AST 78 U/L (15-37); Albumin 2.5 g/dL (3.4-5.0); Alkaline Phosphatase 61 U/L (46-116); Anion Gap 10.2 mmol/L (3-11); BUN 14 mg/dL (7-18); Bilirubin, Total 0.3 mg/dL (0.2-1.0); CO2 25.8 mmol/L (21.0-32.0); Calcium 7.8 mg/dL (8.5-10.1); Chloride 103 mmol/L (98-107); Estimated GFR 59.12 (mL/min/1.73m2); Glucose 162 mg/dL (74-106); Potassium 3.4 mmol/L (3.5-5.1); Sodium 139 mmol/L (136-145); Total Protein 6.2 g/dL (6.4-8.2)
[2024-09-11] MEDS: Pantoprazole 40 MG VIAL IVP (08:20)
[2024-09-11] MEDS: Normal Saline Flush 10 ML SYR IVP ×3 (08:21→20:34)
[2024-09-11] MEDS: Dexamethasone 4 MG/ML VIAL 6 MG IVP (08:21)
[2024-09-11 08:35] VITALS: BP 134/68; PULSE 71; TEMP 36.6; O2SAT 97
[2024-09-11 08:45] LABS: Absolute Lymphocyte Count 0.23 10^3/uL (1.2-3.4); Bands % 18 %
[2024-09-11 08:46] LABS: Absolute Monocyte Count 0.06 10^3/uL (0.1-0.8); Metamyelocytes % 1
--- NOTE | 2024-09-11 08:56 | PDOC.CMIN ---
Date of service: 09/11/24 Time of Service: 08:56 Care Management Initial Assmt Initial Assessment Reason for Hospitalization: sepsis Functional Status/Living Situation Patient Presentation: Reyna was sitting up in a chair when CM met with her. She was pleasant in manner and engaged easily with CM, well known to her from previous admissions. Reyna was admitted with sepsis. She informed that she had been fine until yesterday when she developed chills, headache and AMS. [facility] to [facility] via EMS. She was initially tachycardic and altered but was also found to be hyponatremic with a sodium of 126. This morning blood cultures drawn on admission were positive for gram positive cocci. Reyna stated that she is feeling better but is still weak. She talked a lot about her family in [facility] and some of the challenges she and her have, trying to make ends meet. She shared that she has worked closely with her physician from the cancer center and had been getting some assistance from the [employer] but that is no longer available. Reyna lives in a single family home in [place], [place] with her Mick. She has one son who lives in [place]. 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 She receives disability because of her multiple myeloma but is otherwise independent. She does not receive any community services and does not require the use of any ambulatory aides.. Town of Residence: [place] Resides with: Spouse ( Mick) Significant Other/Family: Out of area (son in [place], extended family in [facility]) Employment Status: Retired Instrumental Activities of Daily Living (ADLs): Independent Medications Medication Management: No Issues/Barriers identified Physical Functioning/Mobility Assistive Device: none Advance Directives Advance Directives: Do you have an Advance Directive: Y 02/13/19 10:16 AD On File at [facility]: Y 02/13/19 10:16 Date Asked 08/07/22 01/05/24 11:21 AD Date Reviewed 09/10/24 09/10/24 15:16 COLST On File at [facility] No 05/13/23 19:57 COLST Date Scanned Code Status Resuscitation Status Full Code Insurance Coverage/Financial Issues Insurance: Medicare / of [place] Care Team Visit Care Team Role Provider Type Gale Ames APRN MD [facility] STAFF PHYSICIAN Reyna Abrams MD Primary Care Provider [facility] STAFF PHYSICIAN InPatient [facility] Other Providers OTHER Sarah Donnelly MD Emergency Provider [facility] STAFF PHYSICIAN Atul Calle Admit Provider [facility] STAFF PHYSICIAN Attending Provider Discharge Potential Discharge Needs: PCP F/U Appt Anticipated Barriers to Discharge: None Identified Patient/Family Education Needs: Review discharge instructions, discuss Ask Me Three Transportation: Private vehicle Plan: Anticipate Vi will be discharged home with no new services when medically stable. She will follow up with her PCP and plan of care and transport with family. CM will follow and assess for discharge planning concerns. Social Determinants of Health Screening Social Determinants of health last assessed in clinic: 09/11/24 Will the Patient Participate in the Screening?: Yes Do you worry about having a steady place to live?: no Problems where you live: no known problems In the past 12 months, have you had to go without electric, gas, oil or water in your home?: no 1. Within the past 12 months, we worried whether our food would run out before we got money to buy more.: Never true 2. Within the past 12 months, the food we bought just didn't last and we didn't have money to get more.: Never true Has lack of transportation kept you from medical appointments or from doing things needed for daily living?: no Has anyone in your life made you feel unsafe or unsupported?: no How hard is it for you to pay for the very basics like food, housing, medical care, and heating? Would you say it is:: Not hard at all Do you want help finding or keeping work or a job?: I do not need or want help If for any reason you need help with day-to-day activities such as bathing, preparing meals, shopping, managing finances, etc., do you get the help you need?: I don?t need any help How often do you feel lonely or isolated from those around you?: Rarely Do you speak a language other than [place] Citizen at home?: No Does the patient want assistance with any of the above?: No Health Related Social Needs Health related social needs: feeling lonely/isolated (Z60.8) PFSH All Active Problems (Updated 09/11/24 @ 09:44 by Gale Ames APRN) Gram-positive cocci bacteremia (Acute) On deep vein thrombosis (DVT) prophylaxis (Acute) Severe headache (Acute) Sepsis (Acute) Insomnia (Chronic) Right hand paresthesia (Chronic) HTN (hypertension) (Chronic) Chronic narcotic dependence (Chronic) changed from morphine to buprenorphine Pain from bone metastases (Chronic) hx ofmorphine ER; managed by [facility] [place]. Now on buprenorphine managed by CM. Radiation vulvitis (Chronic) Onychomycosis (Chronic) GERD (gastroesophageal reflux disease) (Chronic) Medical History (Updated 09/11/24 @ 09:44 by Gale Ames APRN) Complete small bowel obstruction s/p ROSALIA 09/04/23 History of radiation therapy Screening for malignant neoplasm of colon performed Hx SBO Multiple hospitalizations. [place] to be due to opioid-induced constipation. Resolves with bowel rest. 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 04/2011 Hyst and BSO at [facility] [place] Path= stage A1, Gr 11 Chronic hepatitis B (12/29/16) Multiple myeloma in remission on revlimid Surgical History (Updated 10/21/23 @ 13:43 by Reyna Abrams MD) S/P exploratory laparotomy (09/2023) for recurrent bowel obstruction History of colonoscopy (~10/2022) Hx of cataract surgery Hx of cholecystectomy S/P hysterectomy History of cholecystectomy H/O breast biopsy Right, 1o'clock, 12cm from nipple, US-guided needle core biopsy: negative for malignancy. fibroadipose tissue with assoc hemorrhage. Family History Mother , AGE 84 No problems noted. Father , AGE 92 No problems noted. Sister , AGE 79 No problems noted. Sister No problems noted. Brother , AGE 68 Stomach cancer Brother No problems noted. Brother No problems noted. Brother No problems noted. Brother No problems noted. Son No problems noted. 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 Pets and animals: No Sexually active: No Do you think of yourself as: straight/heterosexual Current gender identity: female What is your relationship status?: How often do you talk on the phone with friends or family?: three or more times per week How often do you get together with friends or relatives?: decline to answer How often do you attend congregational or baptism services?: decline to answer Do you belong to any clubs or organized social groups?: decline to answer Panel score (0-1 are the most socially isolated patients): 2 What type of physical activity do you participate in: walking and running Duration: 30-45 minutes/day Frequency: 3-4 times per week Christianne/Presybeterian: Confucianist Special christianne needs: No Seatbelt use: always Helmet use: Yes Helmet use: always Drive intox or ride w/intox trailer truck driver: No Working smoke detector in home: Yes Carbon monox detector in home: Yes Firearms in home: Yes Firearms unloaded and locked: Yes Do you feel safe at home: Yes Do you feel safe in your relationship?: Yes Victim of physical abuse: No Victim of emotional abuse: No Victim of sexual abuse: No Would you like helpful sources: No Additional Social history: [employer]
[2024-09-11 09:03] LABS: Diff Comment Manual Differential; RBC Morphology Normal
[2024-09-11] MEDS: Gabapentin 300 MG CAP PO ×4 (09:19→20:34)
[2024-09-11] MEDS: valACYclovir 500 MG TAB PO ×2 (09:20→20:34)
--- NOTE | 2024-09-11 09:39 | W.PM.PROGNOT ---
Date of Service Date of service: 09/11/24 Time of Service: 09:39 Assessment and Plan Assessment and plan (1) Gram-positive cocci bacteremia: Status: Acute Assessment and plan: On vancomycin 2 bottles are positive-awaiting further results Repeat blood C&S pending (2) Sepsis: Status: Acute Assessment and plan: Criteria met with tachycardia, and fever Source unknown initially and as above now - but no source of entry in blood stream identified Tick born disease panel pending doxycycline to cover anaplasmosis as patient reported being bitten by several ticks over the past week (3) Severe headache: Status: Acute Assessment and plan: Resolved As needed Tylenol Continue home meds for chronic pain? gabapentin 300 oral 3 times daily and as needed ibuprofen buprenorphine 150 mics Q 12 H verified and ongoing (4) Right hand paresthesia: Status: Chronic Assessment and plan: chronic s/p chemo On neurotin (5) HTN (hypertension): Status: Chronic Assessment and plan: No medicine listed on home med list (6) GERD (gastroesophageal reflux disease): Status: Chronic Assessment and plan: On pantoprazole resume home PPI at d/c (7) On deep vein thrombosis (DVT) prophylaxis: Status: Acute Assessment and plan: Continue Lovenox Discussed with Dr. Davis Subjective Subjective Patient reports: no new complaints, feels better, tolerating liquids well, tolerating a regular diet, voiding w/o difficulty, bowel movement and nausea; denies diarrhea, vomiting, shortness of breath or fever Exam Narrative Exam Narrative: 73 years old patient appearing older than stated age, alert oriented x 4, no new tingling or numbness to extremities, no neurological focal deficit, clear lungs bilaterally, S1-S2 regular, positive pulses all 4 extremities, abdomen is non-distended soft and nontender, no bladder distention Objective Last Vital Signs Temp 36.6 C 09/11/24 08:35 Pulse 71 09/11/24 08:35 Resp 19 09/11/24 03:04 BP 134/68 09/11/24 08:35 Pulse Ox 97 09/11/24 08:35 Laboratory Results - last 24 hr 09/10/24 09/10/24 09/10/24 15:27 17:37 20:45 WBC 3.72 L RBC 4.10 Hgb 14.0 Hct 39.3 MCV 96 H MCH 34.1 H MCHC 35.6 RDW 12.4 Plt Count 141 MPV 9.3 Immature Gran % 0.3 Neutrophils % 91.8 Band Neutrophils % Lymphocytes % 6.5 Monocytes % 0.8 Eosinophils % 0.3 Basophils % 0.3 Metamyelocytes % Nucleated RBC % 0.0 Absolute Neutrophils 3.41 Absolute Lymphocytes 0.24 L Absolute Monocytes 0.03 L Absolute Eosinophils 0.01 Absolute Basophils 0.01 RBC Morphology PT 10.3 INR 1.0 VBG pH 7.41 VBG pCO2 45 VBG pO2 23 VBG HCO3 28 VBG Total CO2 25 VBG O2 Saturation 42 VBG Base Excess 3 VBG Lactate 1.9 Sodium 131 L Potassium 3.5 Chloride 94 L Carbon Dioxide 28.5 Anion Gap 8.5 BUN 10 Creatinine 0.9 Est GFR (CKD-EPI 2020) 67.08 Glucose 117 H Calcium 9.3 Magnesium 1.9 Total Bilirubin 0.9 AST 69 H ALT 49 Alkaline Phosphatase 92 Troponin I 5 5 7 Total Protein 9.2 H Albumin 4.2 Procalcitonin < 0.10 Urine Color Yellow Urine Clarity Clear Urine pH 7.5 Ur Specific [place] 1.015 Urine Protein Negative Urine Ketones Negative Urine Blood Trace-intact H Urine Nitrite Negative Urine Bilirubin Negative Urine Urobilinogen 0.2 Ur Leukocyte Esterase Negative Urine RBC 0-2 Urine WBC Negative Ur Epithelial Cells Negative Urine Crystals Negative Urine Bacteria Negative Urine Casts Negative Urine Mucus Negative Ur Culture Indicated? No Urine Glucose Negative 09/11/24 06:39 WBC 5.85 RBC 2.91 L Hgb 9.7 L D Hct 27.6 L MCV 95 MCH 33.3 H MCHC 35.1 RDW 12.2 Plt Count 129 L MPV 8.9 Immature Gran % See Differential Neutrophils % 76.0 Band Neutrophils % 18 Lymphocytes % 4.0 Monocytes % 1.0 Eosinophils % 0.0 Basophils % 0.3 Metamyelocytes % 1 Nucleated RBC % 0.0 Absolute Neutrophils 5.50 Absolute Lymphocytes 0.23 L Absolute Monocytes 0.06 L Absolute Eosinophils 0.00 Absolute Basophils 0.02 RBC Morphology Normal PT INR VBG pH VBG pCO2 VBG pO2 VBG HCO3 VBG Total CO2 VBG O2 Saturation VBG Base Excess VBG Lactate Sodium 139 Potassium 3.4 L Chloride 103 Carbon Dioxide 25.8 Anion Gap 10.2 BUN 14 Creatinine 1.0 Est GFR (CKD-EPI 2020) 59.12 Glucose 162 H Calcium 7.8 L Magnesium Total Bilirubin 0.3 AST 78 H ALT 85 H Alkaline Phosphatase 61 Troponin I Total Protein 6.2 L Albumin 2.5 L Procalcitonin Urine Color Urine Clarity Urine pH Ur Specific [place] Urine Protein Urine Ketones Urine Blood Urine Nitrite Urine Bilirubin Urine Urobilinogen Ur Leukocyte Esterase Urine RBC Urine WBC Ur Epithelial Cells Urine Crystals Urine Bacteria Urine Casts Urine Mucus Ur Culture Indicated? Urine Glucose Time Spent with Patient Time Spent with Patient: >50 minutes Time was spent: preparing to see the patient(eg.review tests), obtaining and/or reviewing separately otained hiistory, ordering medications,tests, procedures, referring, communicating with other health professional healthcare representative, indepentently interpreting results, counseling the patient and care coordination
[2024-09-11] MEDS: Polyethylene Glycol 3350 17 GM PACKET 8.5 GM PO (10:05)
--- NOTE | 2024-09-11 10:50 | IN_ITS ---
PT Notes Visit Reasons: Sepsis from unknown origin, fever, AMS Physical Therapy Inpatient Initial Evaluation Date: 09/11/2024 Referring Doctor: Gale Ames NP PT Orders: PT CONSULT: Eval for Assistive device Precautions: Standard, Lomeli, IV access RUE Patient Profile/Admitting Diagnosis: Reyna is a 73-year-old female presented to the ED via EMS from infusion center with severe headache. CTA of head and neck negative. Abdominal pelvic CT scan negative. Patient admitted for further medical management and assessment for bacteremia and sepsis with blood cultures pending. PMHX: On deep vein thrombosis (DVT) prophylaxis (Acute) Severe headache (Acute) Sepsis (Acute) Insomnia (Chronic) Right hand paresthesia (Chronic) HTN (hypertension) (Chronic) Chronic narcotic dependence (Chronic) changed from morphine to buprenorphinePain from bone metastases (Chronic) hx ofmorphine ER; managed by [facility] heme onc. Now on buprenorphine managed by CM.Radiation vulvitis (Chronic) Onychomycosis (Chronic) GERD (gastroesophageal reflux disease) (Chronic) Medical History (Updated 09/10/24 @ 19:41 by Gale Ames APRN) Complete small bowel obstruction s/p ROSALIA 24History of radiation therapy Screening for malignant neoplasm of colon performed Hx SBO Multiple hospitalizations. [place] to be due to opioid-induced constipation. Resolves with bowel rest.Malaria Prabhu Barbour auricular syndrome Disseminated zoster hospitalized at [facility], on lifelong valacyclovirPsoriasis Malignant neoplasm of uterus 04/01/11 [facility]; ADENOCARCINOMA; ENDOMETROID TYPE ESTIMATED FIGO GRADE I. 04/2011 Hyst and BSO at [facility] Path= stage A1, Gr 11 Chronic hepatitis B (12/29/16) Multiple myeloma in remission on revlimid Surgical History (Updated 10/21/23 @ 13:43 by Reyna Abrams MD) S/P exploratory laparotomy (09/2023) for recurrent bowel obstructionHistory of colonoscopy (~10/2022) Hx of cataract surgery Hx of cholecystectomy S/P hysterectomy History of cholecystectomy H/O breast biopsy Right, 1o'clock, 12cm from nipple, US-guided needle core biopsy: negative for malignancy. fibroadipose tissue with assoc hemorrhage. Social History/Home Situation: Patient resides with in single-family home 5 steps to enter with rail. Patient attends infusion center. provides transportation. Patient independent ADLs and assist with meal prep Equipment Owned/DME: none Subjective:Pt reports she feels much better. She states she does not think she has been drinking enough water the last few days. She says she is concerned because her stool is so hard. ( Nurse aware and provided Miralax) Objective: [] General Observation: Pt presented seated on commode performing hygiene independently Mental Status: A+Ox4 , cooperative able to follow instructions Pain: denies ROM: [] BUE: WNL BLE: WNL Strength: BUE 5/5 BLE: Hips 3+/5 knees 4/5 ankle 4/5 Sensation: intact Bed Mobility/Transfers: Supine to sit independent Sit to stand independent Stand to sit independent Bed to chair CGA Gait: CGA without AD reciprocal pattern with shortened step length 25 feet wide base of support increase lateral weight shifts noted patient attempting to seek out furniture/wall for stability. Balance: [] Static Sitting: Normal Dynamic Sitting: Normal Static Standing: Good minus Dynamic Standing: Fair plus Special Tests: [] Mobility Limitations Standardized Measure [] [facility] AM-PAC 6 clicks Basic Mobility Inpatient Short Form: [] Raw Score: 21 CMS Score: 28.97% Informed Consent/Education: Patient instructed in purpose of PT consult. Assessment: Patient may benefit from use of FWW for long distance ambulation and energy conservation. Will assess prior to discharge to home. Patient is a 73-year-old female who presents with clinical signs and symptoms consistent with current/admitting diagnoses that have resulted to mobility limitations, gait instability, generalized weakness, and impairment of motor control as demonstrated by the following impairment level findings: 1. Decrease strength BLE major muscle group 2. Impaired functional activity tolerance and standing 3. Gait instability 4. Impaired standing balance Impairments are contributing to the following functional limitations: 1. AM-PAC score 2. Decline in transfers 3. Difficulty performing ambulation without assistance or assistive device safely 4. Difficulty performing stairs 5. Risk for falls Patient is assessed as a low complexity based on the following: History: 73-year-old female with impairment level findings, functional limitations, and past medical history as indicated above Examination: Demonstrable impairment in strength, balance, and mobility level with underlying impairments and functional limitations as documented above Presentation: stable Decision Making: low Goals: 1. Independent transfers with least restrictive device 2. Independent ambulation 300 feet with least restrictive device 3. Supervision 5 stairs with rail to safely enter and exit home Plan of Care/Treatment Plan: PT evaluation and 1-2 treatment session only for functional mobility training using recommended AD and for HEP instruction. DISCHARGE RECOMMENDATIONS:Home with no new services indicated. TREATMENT CODE/TIME: 89450/ [id number] Thank you for the opportunity to participate in the care of this patient. Caron Hernandez PT [facility]
[2024-09-11 11:12] VITALS: BP 122/62; PULSE 78; TEMP 36.6; O2SAT 100
--- NOTE | 2024-09-11 15:03 | PT.INTREAT ---
PT Notes Visit Reasons: Sepsis from unknown origin, fever, AMS Inpatient Physical Therapy Treatment Note [facility] Date: 09/11/2024 PRECAUTIONS: Telemetry SUBJECTIVE: Patient requesting to take a walk after she uses the bathroom OBJECTIVE: Seated in chair requesting to use bathroom, Lomeli removed? PAIN: Denies VITALS: ?Monitored via telemetry throughout Therapeutic Activities (53300o[]): Direct one-on-one instruction in dynamic activities to improve functional performance. ? BED MOBILITY/TRANSFERS? Sit-stand: SBA? Stand-sit: SBA ? Bed-Chair: CGA with FWW with cues to stay with FWW patient preference to park FWW off to the side and walk to surface? Chair-bed: CGA with FWW cues to stay within frame of FWW Provided skilled cues and instruction on performance and technique throughout. Ambulation: -Facilitated safe and correct performance of level surface ambulation covering a distance of 200 feet using use front wheeled walker with contact-guard assist . Did not report of any increased pain. Denied headache, chest pain, and lightheadedness throughout activity. Minimal verbal cueing provided for AD management, directional changes, and posture. -Facilitated safe and correct performance of level surface ambulation covering a distance of 25 feet without device min assist. Did not report of any increased pain. Denied headache, chest pain, and lightheadedness throughout activity. Minimal verbal cueing provided for directional changes, and posture. -stairs: 3 4 steps? and 2 6 steps with rails SBA x 2 trials Patient performed 3 minutes on NuStep load 1 ASSESSMENT:?Tolerated session well patient demonstrates increase activity tolerance with use of FWW for ambulation. Patient also demonstrates improved stability with reduction in gait deviations with use of FWW as compared to ambulation without device attempting to hold furniture. Will continue to assess for need for assistive device and issue if appropriate prior to discharge PLAN: Continue per plan of care TREATMENT CODE/TIME: 64223/[id number] DISCHARGE RECOMMENDATION: Home with with no new services indicated.
[2024-09-11 15:04] VITALS: BP 123/68; PULSE 77; TEMP 36.5; O2SAT 97
[2024-09-11 15:26] LABS: Vancomycin, Random 14.1 ug/mL
[2024-09-11 19:06] VITALS: BP 119/70; PULSE 80; RESP 16; TEMP 37; O2SAT 98
[2024-09-11 22:52] VITALS: BP 119/60; PULSE 74; RESP 17; TEMP 36.6; O2SAT 96
[2024-09-11] MEDS: Enoxaparin 40 MG/0.4 ML SYR SC (23:00)
[2024-09-12] MEDS: Normal Saline Flush 10 ML SYR IVP (01:53)
[2024-09-12] MEDS: VANCOMYCIN/WATER (PEG) 1.25 GM/250 ML BAG IVPB (02:17)
[2024-09-12] MEDS: Acetaminophen 500 MG TAB 1000 MG PO (04:34)
[2024-09-12] MEDS: Ibuprofen 400 MG TAB PO (04:34)
[2024-09-12 04:40] VITALS: BP 116/58; PULSE 68; RESP 16; TEMP 37; O2SAT 95
[2024-09-12] MEDS: DOXYCYCLINE 100 MG in Normal Saline 100 ML IVPB (05:32)
[2024-09-12 07:27] VITALS: BP 123/66; PULSE 61; RESP 16; TEMP 36.2; O2SAT 98
--- NOTE | 2024-09-12 08:55 | PDOC.CMPRO ---
Date of service: 09/12/24 Time of Service: 08:55 Care Management Progress Note Discharge Potential Discharge Needs: PCP F/U Appt Anticipated Barriers to Discharge: None Identified Patient/Family Education Needs: Review discharge instructions, discuss Ask Me Three Transportation: Private vehicle Plan: Anticipate Vi will be discharged home with no new services when medically stable. She will follow up with her PCP and plan of care and transport with family. CM will follow and assess for discharge planning concerns. Social Determinants of Health Screening Social Determinants of health last assessed in clinic: 09/11/24 Will the Patient Participate in the Screening?: Yes Do you worry about having a steady place to live?: no Problems where you live: no known problems In the past 12 months, have you had to go without electric, gas, oil or water in your home?: no Has lack of transportation kept you from medical appointments or from doing things needed for daily living?: no Has anyone in your life made you feel unsafe or unsupported?: no How hard is it for you to pay for the very basics like food, housing, medical care, and heating? Would you say it is:: Not hard at all Do you want help finding or keeping work or a job?: I do not need or want help If for any reason you need help with day-to-day activities such as bathing, preparing meals, shopping, managing finances, etc., do you get the help you need?: I don?t need any help How often do you feel lonely or isolated from those around you?: Rarely Do you speak a language other than [place] at home?: No Does the patient want assistance with any of the above?: No Health Related Social Needs Health related social needs: feeling lonely/isolated (Z60.8)
[2024-09-12] MEDS: Gabapentin 300 MG CAP PO ×2 (09:07→14:18)
[2024-09-12] MEDS: valACYclovir 500 MG TAB PO (09:07)
[2024-09-12 10:40] LABS: Lyme Ab w Rflx to Lyme Confirm Negative (Negative)
--- NOTE | 2024-09-12 11:23 | PT.INTREAT ---
PT Notes Visit Reasons: Sepsis from unknown origin, fever, AMS Date: 09/12/2024 PRECAUTIONS: Fall standard SUBJECTIVE: Pt in recliner, very pleasant agreed to participating with therapy session. OBJECTIVE: ? PAIN: Denies VITALS: closely monitored by nursing Therapeutic Activities [id number]: Direct one-on-one instruction in dynamic activities to improve functional performance. ? BED MOBILITY/TRANSFERS? Sit-stand: Supervision? Stand-sit: Supervision ? Bed-Chair: Supervision ? Chair-bed: Supervision Provided skilled cues and instruction on performance and technique throughout. Ambulation: -Facilitated safe and correct performance of level surface ambulation covering a distance of 300'x2, room distances without AD supervision. Did not report of any increased pain. Denied headache, chest pain, and lightheadedness throughout activity. Minimal verbal cueing provided for directional changes, and posture. -stairs: 14 step step over step gait pattern 1 handrail SBA ASSESSMENT:?pt tolerated activity well, pt stable and wont need FWW when DC'd. PLAN: Continue per plan of care TREATMENT CODE/TIME: [id number], [id number] 25mins (11:10-11:35am) DISCHARGE RECOMMENDATION: Home with with no new services indicated.
[2024-09-12 11:30] VITALS: BP 109/81; PULSE 70; RESP 16; TEMP 36; O2SAT 99
[2024-09-12] MEDS: Omeprazole 20 MG CAPCR 40 MG PO (11:49)
--- NOTE | 2024-09-12 12:19 | DSE_ITS ---
Date of service: 09/12/24 Time of Service: 12:33 DS: Diagnosis Discharge Diagnosis (1) Gram-positive cocci bacteremia: Status: Acute (2) Sepsis: Status: Acute (3) Severe headache: Status: Acute (4) Right hand paresthesia: Status: Chronic (5) HTN (hypertension): Status: Chronic (6) GERD (gastroesophageal reflux disease): Status: Chronic (7) On deep vein thrombosis (DVT) prophylaxis: Status: Acute Discharge Plan Disposition Patient Disposition: Home Condition: Improving Discharge Details Reason For Visit: Sepsis from unknown origin, fever, AMS Admit Date/Time: 09/10/24 18:16 Admit Provider: Autl Calle Attending Provider: Atul Calle Primary Care Provider: Reyna Abrams Hospital Course Hospital Course: This 73-year-old female patient, with a past medical history significant for hypertension, multiple myeloma, and a remote history of endometrial cancer not currently on chemotherapy presented to the ED at [facility] 09/10/24 via EMS for severe headache and acute mental status with tachycardia, normotension and normothermia. Head CT was negative for any acute changes. Chest/abdomen/pelvic CT showed no actionable items. Blood work showed mild leukopenia and neutropenia, chemistry showed mild hyponatremia and mild transaminitis. Lumbar puncture for RANGE TECHNICIAN infection concerns was attempted without success. Treatment was initiated for concerns of meningitis with ceftriaxone, ampicillin, vancomycin, dexamethasone IV and IV Acyclovir. The patient was admitted to the medical surgical floor for sepsis of unknown origin and ongoing treatment for meningitis coverage as well as tickborne disease. Doxycycline added to the regimen as per hospitalist recommendation. Blood cultures grew Streptococcus agalactiae and subsequent blood cultures were negative at 24 hours. The patient will be discharged home on augmentin and doxycycline; tick borne illness panel results were still pending. The patient has been afebrile since 09/10/24 at 15:00 and remains hemodynamically stable. Recommendation for PCP follow-up: Consider repeating CBC and lytes Revlimid held suring acute infection - when to restart Discussed with Dr. Davis Home Meds and New Rx's Prescriptions: New amoxicillin-pot clavulanate 875-125 mg tablet 1 tab PO Q12H Qty: 13 0RF doxycycline hyclate 100 mg capsule 100 mg PO BID Qty: 14 0RF Bio-K plus 50 billion cell capsule,delayed release(DR/EC) 1 cap PO DAILY Qty: 10 0RF Rx Instructions: Take 3 hours apart from oral antibiotics Continued buprenorphine HCl 150 mcg film 150 mcg buccal Q12H Qty: 60 5RF Patient Comments: pt reports she needs or she goes crazy, can't sleep gabapentin 300 mg capsule 300 mg PO TID Qty: 270 3RF Patient Comments: Supposed to be tid but pt forgets midday dose, takes bid mostly aspirin [Aspirin Low-Strength] 81 MG tablet,chewable 81 mg PO QHS valacyclovir 500 mg tablet 500 mg PO BID Qty: 60 3RF acetaminophen 500 mg Tablet 1,000 mg PO Q8H PRN PRNQty: 60 0RF hydrocortisone [Cortisone (hydrocortisone)] 1 % cream 1 applic topical DAILY PRN omeprazole 40 mg capsule,delayed release(DR/EC) 40 mg PO DAILY PRN (Reason: reflux) polyethylene glycol 3350 [Miralax] 17 gram/dose powder 8.5 g PO HS PRN (Reason: constipation) Rx Instructions: take a dose at bedtime if no BM during the day Held lenalidomide [Revlimid] 5 mg capsule 5 mg PO DAILY Hold Instructions: Resume on 09/19/24. Call your oncologist or your PCP to know when to resume in the setting of treatment for gram positive bacteremia Patient Comments: Pt reports she was supposed to start tonight 09/10/24 Discharge Instructions Referrals: Reyna Abrams MD [Primary Care Provider] - (Follow-up within 7 days of discharge plase ) Activity:: Activity as Tolerated Equipment/Supplies:: No Equipment Needed Diet:: heart healthy Discharge Orders Discharge Orders: Discharge Order (Routine); Ordered 09/12/24 Ordered By: Gale Ames DS: Summary Time Spent with Patient providing and/or coordinating discharge services: Greater than 30 minutes Status at Discharge Functional status at discharge: uses cane/walker Overall status at discharge: patient is progressing back to baseline Mental Status: mental status grossly normal Speech and Movement: speech and movement normal Mood: congruent mood Affect: normal affect Quality:SDOH Health Related Social Needs: Health related social needs feeling lonely/isolated (Z 60.8) Exam Narrative Exam Narrative: 73 years old patient appearing older than stated age, alert oriented x 4, no new tingling or numbness to extremities, no neurological focal deficit, clear lungs bilaterally, S1-S2 regular, positive pulses all 4 extremities, abdomen is non- distended soft and nontender, no bladder distention Psych Mental Status: mental status grossly normal Speech and Movement: speech and movement normal Mood: congruent mood Affect: normal affect DS: Data Vitals/I&O Vitals and I&O: Vital Signs Temperature 36.0 C L 09/12/24 11:30 Temperature Source Temporal Artery Scan 09/12/24 11:30 Pulse 70 09/12/24 11:30 Pulse Rhythm Regular 09/10/24 20:30 Pulse 88 09/10/24 19:46 Respiratory Rate 16 09/12/24 11:30 Respiratory Effort Normal 09/10/24 20:30 Respiratory Depth Normal 09/10/24 20:30 Respiratory Pattern Normal 09/10/24 20:30 Blood Pressure 109/81 09/12/24 11:30 Blood Pressure Mean 90 09/12/24 11:30 Pulse Oximetry 99 09/12/24 11:30 Oxygen Delivery Method Room Air 09/12/24 11:30 Oxygen Flow Rate 0 09/12/24 11:30 Pain Level 0 09/12/24 11:30 Intake & Output 09/11/24 09/12/24 09/12/24 23:59 11:59 23:59 Intake Total 110 / 960 850 / 850 Output Total 650 / 950 Balance -540 / 10 850 / 850 Intake: IV 110 / 960 350 / 350 Oral 500 / 500 Output: Urine 650 / 950 Other: Urine Color Pale Straw Urine Appearance Clear Clear Comment voided voided in toilet Stool Size Smear Small Stool Characteristics Liquid Soft Data Completed and Pending Labs on day of discharge: Labs from last 24 hours 09/11/24 14:22 Random Vancomycin 14.1 09/11/24 10:30 Blood Blood Culture - Pending 09/11/24 10:15 Blood Blood Culture - Pending Preliminary micro results at discharge 09/11/24 10:30 Blood Blood Culture - Pending 09/11/24 10:15 Blood Blood Culture - Pending [facility] All Active Problems (Updated 09/11/24 @ 09:44 by Gale Ames APRN) Gram-positive cocci bacteremia (Acute) On deep vein thrombosis (DVT) prophylaxis (Acute) Severe headache (Acute) Sepsis (Acute) Insomnia (Chronic) Right hand paresthesia (Chronic) HTN (hypertension) (Chronic) Chronic narcotic dependence (Chronic) changed from morphine to buprenorphine Pain from bone metastases (Chronic) hx ofmorphine ER; managed by [facility] [place]. Now on buprenorphine managed by [facility]. Radiation vulvitis (Chronic) Onychomycosis (Chronic) GERD (gastroesophageal reflux disease) (Chronic) Medical History (Updated 09/11/24 @ 09:44 by Gale Ames APRN) Complete small bowel obstruction s/p ROSALIA 09/04/23 History of radiation therapy Screening for malignant neoplasm of colon performed Hx SBO Multiple hospitalizations. [place] to be due to opioid-induced constipation. Resolves with bowel rest. 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 04/2011 Hyst and BSO at [facility] Path= stage A1, Gr 11 Chronic hepatitis B (12/29/16) Multiple myeloma in remission on revlimid Surgical History (Updated 10/21/23 @ 13:43 by Reyna Abrams MD) S/P exploratory laparotomy (09/2023) for recurrent bowel obstruction History of colonoscopy (~10/2022) Hx of cataract surgery Hx of cholecystectomy S/P hysterectomy History of cholecystectomy H/O breast biopsy Right, 1o'clock, 12cm from nipple, US-guided needle core biopsy: negative for malignancy. fibroadipose tissue with assoc hemorrhage. Family History Mother , AGE 84 No problems noted. Father , AGE 92 No problems noted. Sister , AGE 79 No problems noted. Sister No problems noted. Brother , AGE 68 Stomach cancer Brother No problems noted. Brother No problems noted. Brother No problems noted. Brother No problems noted. Son No problems noted. 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 Pets and animals: No Sexually active: No Do you think of yourself as: straight/heterosexual Current gender identity: female What is your relationship status?: How often do you talk on the phone with friends or family?: three or more times per week How often do you get together with friends or relatives?: decline to answer How often do you attend latter-day or taoist services?: decline to answer Do you belong to any clubs or organized social groups?: decline to answer Panel score (0-1 are the most socially isolated patients): 2 What type of physical activity do you participate in: walking and running Duration: 30-45 minutes/day Frequency: 3-4 times per week Christianne/Zoroastrianism: Anabaptist Special christianne needs: No Seatbelt use: always Helmet use: Yes Helmet use: always Drive intox or ride w/intox screw driver operator: No Working smoke detector in home: Yes Carbon monox detector in home: Yes Firearms in home: Yes Firearms unloaded and locked: Yes Do you feel safe at home: Yes Do you feel safe in your relationship?: Yes Victim of physical abuse: No Victim of emotional abuse: No Victim of sexual abuse: No Would you like helpful sources: No Additional Social history: [facility] Time Spent with Patient Time Spent with Patient: 70-84 minutes4 Time was spent: preparing to see the patient(eg.review tests), obtaining and/or reviewing separately otained hiistory, ordering medications,tests, procedures, referring, communicating with other health director medicare sales, indepentently interpreting results, counseling the patient and care coordination
--- NOTE | 2024-09-12 14:17 | PDOC.CMDIS ---
Date of service: 09/12/24 Time of Service: 14:17 LACE Index Scoring Tool Questions: Length of Stay (in days): 2 Was the patient admitted via the E.D.?: Yes Comorbidities: Any Tumor and Liver or Renal Disease E.D. Visits: 1 Answers: Total Score: 11 Risk of Readmission: High Risk Care Management Discharge Plan Reason for Hospitalization: sepsis Discharge Plan: Vi will be discharged home with no new services. She will follow up with her PCP and plan of care and transport with her . Patient/Family Education Needs: Review of discharge instructions, limitations, follow up plan and discuss Ask Me Three SDOH Health Related Social Needs: Health related social needs education (Z55.6)
[2024-09-12] MEDS: Amoxicillin 875/Clav. 125 TAB PO (14:18)
[2024-09-12] MEDS: Potassium Chloride 20 MEQ TABCR PO (14:18)
[2024-09-14 14:52] LABS: Anaplasma phagocytophilum Negative (Negative); B. miyamotoi PCR Negative (Negative); Babesia divergens/MO-1 Negative (Negative); Babesia duncani Negative (Negative); Babesia microti Negative (Negative); Ehrlichia chaffeensis Negative (Negative); Ehrlichia ewingii/canis Negative (Negative); Ehrlichia muris eauclairensis Negative (Negative)
== END 2024-09-12 14:28 | disposition home or self-care (01) | DRG 871 ==
LOC: ER 17:37 → MS 20:19
PROVIDERS: Admitting Provider Family Medicine; Emergency Provider Emergency Medicine; PCP Family Medicine; Responsible Provider Nurse Practitioner Acute Care; Visit Provider Family Medicine
DX: A41.9 Sepsis, unspecified organism (principal); R20.2 Paresthesia of skin; R51.9 Headache, unspecified; I10 Essential (primary) hypertension; K21.9 Gastro-esophageal reflux disease without esophagitis; Z79.899 Other long term (current) drug therapy; G03.9 Meningitis, unspecified; C90.00 Multiple myeloma not having achieved remission; F11.20 Opioid dependence, uncomplicated; C79.51 Secondary malignant neoplasm of bone; B18.1 Chronic viral hepatitis B without delta-agent; B02.21 Postherpetic geniculate ganglionitis; E87.1 Hypo-osmolality and hyponatremia; A93.8 Other specified arthropod-borne viral fevers; Z85.42 Personal history of malignant neoplasm of other parts of uterus; F51.04 Psychophysiologic insomnia; G89.3 Neoplasm related pain (acute) (chronic); Z92.3 Personal history of irradiation; N76.3 Subacute and chronic vulvitis; T66.XXXA Radiation sickness, unspecified, initial encounter; Z86.13 Personal history of malaria; D70.9 Neutropenia, unspecified; R74.01 Elevation of levels of liver transaminase levels; B95.1 Streptococcus, group B, as the cause of diseases classified elsewhere
CPT/HCPCS: 00123; 36415; 51702; 62270; 70496; 70498; 74177; 80053; 82784; 82805; 84145; 87040; 87077; 87798; 96365; 96366; 96367; 96375; 97116; 97161; 97530; 99291; J1650; 71260; 80202; 81003; 81015; 82607; 83605; 83735; 83883; 84165; 84484; 85025; 85610; 86618; 99223; 99233; 99239; J0131; J0133; J0290; J0696; J1100; J2405; J2470; J3370; J3372; J3490

== ENCOUNTER 2024-09-14 13:25 | Emergency (ER) | payer MEDICARE, BC, SELFPAY ==
[2024-09-14 13:27] VITALS: BP 160/92; PULSE 82; RESP 16; TEMP 36.9; O2SAT 96
--- NOTE | 2024-09-14 13:30 | DI.US_ITS ---
Exam(s) US LOWER EXTREMITY VENOUS RT EXAM: US LOWER EXTREMITY VENOUS RT CLINICAL HISTORY: swelling TECHNIQUE: Grayscale, color, and doppler imaging of the deep venous system of the right lower extremity was performed. COMPARISON: US POCUS EXAM from 09/08/2023 FINDINGS: There is no evidence of intraluminal thrombus and there is normal compression and augmentation demonstrated within the common femoral vein, femoral vein, and popliteal vein. In the ipsilateral calf the interrogated veins also exhibit normal compression/ augmentation properties. The ipsilateral saphenofemoral junction is patent. No abnormal fluid collections evident. IMPRESSION: 1. No evidence of DVT in the right lower extremity. DATA REPOSITORY:
--- NOTE | 2024-09-14 13:30 | DI.US_ITS ---
Exam(s) US SOFT TISS EXTREMITY/GROIN EXAM: US SOFT TISS EXTREMITY/GROIN CLINICAL HISTORY: right inner thigh pain, r/o abscess. TECHNIQUE: Ultrasound was performed using standard protocol. COMPARISON: US US LOWER EXTREMITY VENOUS RT from 09/14/2024 FINDINGS: Dedicated ultrasound examination of the area of clinical concern in the distal posterior medial thigh was performed (area of skin erythema). There is no focal fluid collection nor abscess evident in this region. There is for, some generalized hyperemia in the skin and subcutaneous tissues. IMPRESSION: No focal abscess in the area of clinical concern/erythema in the thigh. Probable cellulitis DATA REPOSITORY:
[2024-09-14 13:36] VITALS: RESP 16
[2024-09-14] MEDS: cefTRIAXone 2 GM/50 ML BAG IVPB (14:51)
[2024-09-14 14:56] VITALS: BP 149/74; PULSE 66; RESP 14; TEMP 36.7
--- NOTE | 2024-09-14 15:08 | ED.GENADUL_ITS ---
Discharge Plan Disposition Patient Disposition: Home Condition: Stable Discharge Details Clinical Impression: Cellulitis of left lower extremity Primary Care Provider: Reyna Abrams ED Provider: Jian Benavides Home Meds and New Rx's Prescriptions: Continued ceftriaxone 2 gram recon soln 2 g IV DAILY buprenorphine HCl 150 mcg film 150 mcg buccal Q12H Qty: 60 5RF Patient Comments: pt reports she needs or she goes crazy, can't sleep gabapentin 300 mg capsule 300 mg PO TID Qty: 270 3RF Patient Comments: Supposed to be tid but pt forgets midday dose, takes bid mostly aspirin [Aspirin Low-Strength] 81 MG tablet,chewable 81 mg PO QHS valacyclovir 500 mg tablet 500 mg PO BID Qty: 60 3RF acetaminophen 500 mg Tablet 1,000 mg PO Q8H PRN PRNQty: 60 0RF hydrocortisone [Cortisone (hydrocortisone)] 1 % cream 1 applic topical DAILY PRN omeprazole 40 mg capsule,delayed release(DR/EC) 40 mg PO DAILY PRN (Reason: reflux) polyethylene glycol 3350 [Miralax] 17 gram/dose powder 8.5 g PO HS PRN (Reason: constipation) Rx Instructions: take a dose at bedtime if no BM during the day doxycycline hyclate 100 mg capsule 100 mg PO BID Qty: 14 0RF Bio-K plus 50 billion cell capsule,delayed release(DR/EC) 1 cap PO DAILY Qty: 10 0RF Rx Instructions: Take 3 hours apart from oral antibiotics Discontinued amoxicillin-pot clavulanate 875-125 mg tablet 1 tab PO Q12H Qty: 13 0RF No Action lenalidomide [Revlimid] 5 mg capsule 5 mg PO DAILY Patient Comments: Pt reports she was supposed to start tonight 09/10/24 Discharge Instructions Instructions: Cellulitis (Skin Infection), Adult ED Additional Instructions: Please return to the emergency department tomorrow for your second dose of antibiotic and recheck of the cellulitis. Please follow-up with your primary care physician. Return to the emergency department immediately for any worsening or new concerning symptoms. Referrals: Reyna Abrams MD [Primary Care Provider, Medicine] Discharge Data Discharge Date/Time-TO BE ENTERED AT DEPARTURE: 09/14/24 15:31 HPI General Mode of arrival: ambulatory . Date/Time Provider Initiated Documentation: 09/14/24 13:41 . Limitations to Documentation: no limitations . Information obtained by: patient . HPI Narrative: 74-year-old female with history of psoriasis, multiple myeloma on Revlimid, recently hospitalized for bacteremia, discharged 09/12 on Augmentin and doxycycline, followed up with PCP today who is concerned about area of swelling and discomfort right upper inner thigh that started yesterday. PCP concern for potential DVT. Patient notes no fever since discharge. Related Data Home Medications ?Medication ?Instructions ?Recorded ?Confirmed aspirin 81 mg chewable tablet 81 mg PO QHS 08/19/14 (Aspirin Low-Strength) valacyclovir 500 mg tablet 500 mg PO BID #60 tabs 05/0609/17/24 lenalidomide 5 mg capsule 5 mg PO DAILY 02/21/1909/17 (Revlimid) acetaminophen 500 mg tablet 1,000 mg (2 x 500 mg) PO Q 8H PRN 08/02/22 09/17/24 PRN #60 tabs buprenorphine HCl 150 mcg buccal 150 mcg buccal Q12H # 60 ea 04/13/24 09/17/24 film gabapentin 300 mg capsule 300 mg PO TID #270 caps 09/2609/17/24 hydrocortisone 1 % topical cream 1 applic topical ALTON Y PRN 09/10/24 09/17/24 (Cortisone (hydrocortisone)) omeprazole 40 mg capsule,delayed 40 mg PO DAILY PRN re flux 09/10/24 09/17/24 release polyethylene glycol 3350 17 8.5 g PO HS PRN constipati on 09/10/24 09/17/24 gram/dose oral powder (Miralax) L. acidophilus,casei,rhamnosus 50 1 cap PO DAILY #10 c aps 09/12/24 09/17/24 billion cell capsule,delayed release (Bio-K plus) doxycycline hyclate 100 mg capsule 100 mg PO BID #14 c aps 09/12/24 09/17/24 ceftriaxone 2 gram intravenous 2 g IV DAILY 09/14/24 0 09/17/24 solution Previous Rx's ?Medication ?Instructions ?Recorded valacyclovir 500 mg tablet 500 mg PO BID #60 tabs 05/06 04/22 acetaminophen 500 mg tablet 1,000 mg (2 x 500 mg) PO Q 8H PRN 08/02/22 PRN #60 tabs buprenorphine HCl 150 mcg buccal 150 mcg buccal Q12H # 60 ea 04/13/24 film gabapentin 300 mg capsule 300 mg PO TID #270 caps 09/26 L. acidophilus,casei,rhamnosus 50 1 cap PO DAILY #10 c aps 09/12/24 billion cell capsule,delayed release (Bio-K plus) doxycycline hyclate 100 mg capsule 100 mg PO BID #14 c aps 09/12/24 ceftriaxone 2 gram intravenous 2 g IV DAILY 09/14/24 solution Allergies Allergy/AdvReac Type Severity Reaction Status Date / Time iodine Allergy Intermediate rashes Verified 09/15/24 14:34 acetaminophen AdvReac Intermediate rash Verified 09/15/24 14:34 DUST Allergy Unknown sneezing Uncoded 09/15/24 14:34 MOLD AND SMUT Allergy Unknown respiratory Uncoded 09/15/24 14:34 General Stated Complaint: Vascular RICKI: 2 Review of Systems All systems reviewed & are unremarkable except as noted in HPI and below Constitutional Constitutional: Denies fever(s) Respiratory Respiratory: Denies cough Exam Const General: cooperative and no acute distress HENID Mouth: moist mucous membranes Eyes Conjunctivae: normal conjunctivae Sclera: normal sclerae Resp Auscultation: clear to auscultation bilaterally, no rales, no rhonchi and no wheezes Cardio Rate: regular rate and not tachycardic Rhythm: regular rhythm GI Palpation: soft, not firm, no guarding, no masses, not rigid and nontender Skin General skin exam: no rashes or lesions noted Neuro General: patient alert, patient awake and tone normal Extrem Other: Right medial inner thigh with swelling, tenderness and erythema. Inflammation does not extend into the groin. Distal pulses intact. Course Vital Signs Vital signs: Vital Signs Temperature 36.9 C 09/14/24 13:27 Pulse 82 09/14/24 13:27 Respiratory Rate 16 09/14/24 13:27 Blood Pressure 160/92 H 09/14/24 13:27 Pulse Oximetry 96 09/14/24 13:27 Temperature 36.7 C 09/14/24 14:56 Temperature Source Oral 09/14/24 14:56 Pulse 66 09/14/24 14:56 Pulse Rhythm Irregular 09/14/24 14:56 Pulse Strength Normal 09/14/24 14:56 Respiratory Rate 14 09/14/24 14:56 Respiratory Effort Normal, Non-Labored 09/14/24 14:56 Respiratory Depth Normal 09/14/24 14:56 Respiratory Pattern Normal 09/14/24 13:36 Blood Pressure 149/74 H 09/14/24 14:56 Blood Pressure Mean 99 09/14/24 14:56 Blood Pressure Position Sitting 09/14/24 14:56 Pulse Oximetry 96 09/14/24 13:27 Oxygen Delivery Method Room Air 09/14/24 13:27 Oxygen Flow Rate 0 09/14/24 13:27 Pain Level 6 09/14/24 13:27 Medical Decision Making 74-year-old female with history of multiple myeloma on Revlimid, recently discharged from hospital after being treated for sepsis and found to have group B strep bacteremia, seen by PCP today who is concerned with new onset right upper inner thigh inflammation and potential for DVT. Right lower extremity ultrasound was obtained of the soft tissue and interpreted by radiology: No focal abscess in the area of clinical concern/erythema in the thigh. Probable cellulitis Right lower extremity DVT ultrasound obtained and interpreted by radiology: 1. No evidence of DVT in the right lower extremity. Suspect cellulitis. Patient is not septic today. Hemodynamically stable. I had spoken with Dr. Abrams, patient's PCP. She will continue ceftriaxone IV in outpatient setting. Patient stable and requesting discharge. Usual customary discharge instructions were reviewed. 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 Now on buprenorphine managed by CM. Radiation vulvitis (Chronic) Onychomycosis (Chronic) GERD (gastroesophageal reflux disease) (Chronic) Medical History (Updated 09/15/24 @ 14:49 by Eros Islas MD) Complete small bowel obstruction s/p ROSALIA 09/04/23 History of radiation therapy Screening for malignant neoplasm of colon performed Hx SBO Multiple hospitalizations. [place] to be due to opioid-induced constipation. Resolves with bowel rest. Malaria [place] auricular syndrome Disseminated zoster hospitalized at [facility], on lifelong valacyclovir Psoriasis Malignant neoplasm of uterus 04/01/11 [facility]; ADENOCARCINOMA; ENDOMETROID TYPE ESTIMATED FIGO GRADE I. 04/2011 Hyst and BSO at [facility] Path= stage A1, Gr 11 Chronic hepatitis B (12/29/16) Multiple myeloma in remission on revlimid Surgical History (Updated 10/21/23 @ 13:43 by Reyna Abrams MD) S/P exploratory laparotomy (09/2023) for recurrent bowel obstruction History of colonoscopy (~10/2022) Hx of cataract surgery Hx of cholecystectomy S/P hysterectomy History of cholecystectomy H/O breast biopsy Right, 1o'clock, 12cm from nipple, US-guided needle core biopsy: negative for malignancy. fibroadipose tissue with assoc hemorrhage. Family History Mother , AGE 84 No problems noted. Father , AGE 92 No problems noted. Sister , AGE 79 No problems noted. Sister No problems noted. Brother , AGE 68 Stomach cancer Brother No problems noted. Brother No problems noted. Brother No problems noted. Brother No problems noted. Son No problems noted. 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 and animals: No Sexually active: No Do you think of yourself as: straight/heterosexual Current gender identity: female What is your relationship status?: How often do you talk on the phone with friends or family?: three or more times per week How often do you get together with friends or relatives?: decline to answer How often do you attend orthodox or hindu services?: decline to answer Do you belong to any clubs or organized social groups?: decline to answer Panel score (0-1 are the most socially isolated patients): 2 What type of physical activity do you participate in: walking and running Duration: 30-45 minutes/day Frequency: 3-4 times per week Christianne/Caodaism: Sabianist Special christianne needs: No Seatbelt use: always Helmet use: Yes Helmet use: always Drive intox or ride w/intox dedicated local truck driver: No Working smoke detector in home: Yes Carbon monox detector in home: Yes Firearms in home: Yes Firearms unloaded and locked: Yes Do you feel safe at home: Yes Do you feel safe in your relationship?: Yes Victim of physical abuse: No Victim of emotional abuse: No Victim of sexual abuse: No Would you like helpful sources: No Additional Social history: [employer]
--- NOTE | 2024-09-14 15:30 | NUR.NOTE ---
Patient discharged with 20 gauge IV in R AC as she is coming back tomorrow for continued IV abx administration.
== END 2024-09-14 15:31 | disposition home or self-care (01) ==
PROVIDERS: Emergency Provider Student in an Organized Health Care Education/Training Program; PCP Family Medicine
DX: L03.115 Cellulitis of right lower limb (principal); R78.81 Bacteremia; B95.1 Streptococcus, group B, as the cause of diseases classified elsewhere; M79.604 Pain in right leg
CPT/HCPCS: 99284 ×2; 36415; 76882; 96365; 93971; J0696

== ENCOUNTER 2024-09-15 14:28 | Emergency (ER) | payer MEDICARE, BC, SELFPAY ==
[2024-09-15 14:29] VITALS: BP 159/80; PULSE 90; RESP 14; TEMP 36.8; O2SAT 98
--- NOTE | 2024-09-15 14:43 | ED.GENADUL_ITS ---
Discharge Plan Disposition Patient Disposition: Home Condition: Stable Discharge Details Clinical Impression: Cellulitis of leg, right Primary Care Provider: Reyna Abrams ED Provider: Eros Islas Home Meds and New Rx's Prescriptions: Continued ceftriaxone 2 gram recon soln 2 g IV DAILY lenalidomide [Revlimid] 5 mg capsule 5 mg PO DAILY Patient Comments: Pt reports she was supposed to start tonight 09/10/24 buprenorphine HCl 150 mcg film 150 mcg buccal Q12H Qty: 60 5RF Patient Comments: pt reports she needs or she goes crazy, can't sleep gabapentin 300 mg capsule 300 mg PO TID Qty: 270 3RF Patient Comments: Supposed to be tid but pt forgets midday dose, takes bid mostly aspirin [Aspirin Low-Strength] 81 MG tablet,chewable 81 mg PO QHS valacyclovir 500 mg tablet 500 mg PO BID Qty: 60 3RF acetaminophen 500 mg Tablet 1,000 mg PO Q8H PRN PRNQty: 60 0RF hydrocortisone [Cortisone (hydrocortisone)] 1 % cream 1 applic topical DAILY PRN omeprazole 40 mg capsule,delayed release(DR/EC) 40 mg PO DAILY PRN (Reason: reflux) polyethylene glycol 3350 [Miralax] 17 gram/dose powder 8.5 g PO HS PRN (Reason: constipation) Rx Instructions: take a dose at bedtime if no BM during the day Bio-K plus 50 billion cell capsule,delayed release(DR/EC) 1 cap PO DAILY Qty: 10 0RF Rx Instructions: Take 3 hours apart from oral antibiotics No Action doxycycline hyclate 100 mg capsule 100 mg PO BID Qty: 14 0RF Discharge Instructions Additional Instructions: Follow-up with your primary care provider. If you feel significantly more ill or have new symptoms such as high fevers return to the emergency department for reevaluation. HPI General Mode of arrival: ambulatory . Date/Time Provider Initiated Documentation: 09/15/24 14:29 . Limitations to Documentation: no limitations . Information obtained by: patient . History of Present Illness 73 year old F presents to the emergency department with the chief complaint of right leg cellulitis, described as mild, Patient started experiencing this day(s) (3) and it has been constant. No relieving factors improve symptom(s), No exacerbating factors reported . Patient notes no other symptoms.; denies chest pain, fever/chills and shortness of breath. Patient did receive the following treatments prior to arrival, none Related Data Home Medications ?Medication ?Instructions ?Recorded ?Confirmed aspirin 81 mg chewable tablet 81 mg PO QHS 08/19/14 (Aspirin Low-Strength) valacyclovir 500 mg tablet 500 mg PO BID #60 tabs 05/0609/15/24 lenalidomide 5 mg capsule 5 mg PO DAILY 02/21/1909/15 (Revlimid) acetaminophen 500 mg tablet 1,000 mg (2 x 500 mg) PO Q 8H PRN 08/02/22 09/15/24 PRN #60 tabs buprenorphine HCl 150 mcg buccal 150 mcg buccal Q12H # 60 ea 04/13/24 09/15/24 film gabapentin 300 mg capsule 300 mg PO TID #270 caps 0509/2609/15/24 hydrocortisone 1 % topical cream 1 applic topical ALTON Y PRN 09/10/24 09/15/24 (Cortisone (hydrocortisone)) omeprazole 40 mg capsule,delayed 40 mg PO DAILY PRN re flux 09/10/24 09/15/24 release polyethylene glycol 3350 17 8.5 g PO HS PRN constipati on 09/10/24 09/15/24 gram/dose oral powder (Miralax) L. acidophilus,casei,rhamnosus 50 1 cap PO DAILY #10 c aps 09/12/24 09/15/24 billion cell capsule,delayed release (Bio-K plus) doxycycline hyclate 100 mg capsule 100 mg PO BID #14 c aps 09/12/24 09/14/24 ceftriaxone 2 gram intravenous 2 g IV DAILY 09/14/24 0 09/15/24 solution Previous Rx's ?Medication ?Instructions ?Recorded valacyclovir 500 mg tablet 500 mg PO BID #60 tabs 05/06 04/22 acetaminophen 500 mg tablet 1,000 mg (2 x 500 mg) PO Q 8H PRN 08/02/22 PRN #60 tabs buprenorphine HCl 150 mcg buccal 150 mcg buccal Q12H # 60 ea 04/13/24 film gabapentin 300 mg capsule 300 mg PO TID #270 caps 0509/26 L. acidophilus,casei,rhamnosus 50 1 cap PO DAILY #10 c aps 09/12/24 billion cell capsule,delayed release (Bio-K plus) doxycycline hyclate 100 mg capsule 100 mg PO BID #14 c aps 09/12/24 ceftriaxone 2 gram intravenous 2 g IV DAILY 09/14/24 solution Allergies Allergy/AdvReac Type Severity Reaction Status Date / Time iodine Allergy Intermediate rashes Verified 09/15/24 14:34 acetaminophen AdvReac Intermediate rash Verified 09/15/24 14:34 DUST Allergy Unknown sneezing Uncoded 09/15/24 14:34 MOLD AND SMUT Allergy Unknown respiratory Uncoded 09/15/24 14:34 General Stated Complaint: Recheck RICKI: 4 Review of Systems All systems reviewed & are unremarkable except as noted in HPI and below Constitutional Constitutional: Denies chills, Denies fever(s) and Denies weakness Cardiovascular Cardiovascular: Denies chest pain and Denies dyspnea Respiratory Respiratory: Denies cough and Denies dyspnea Gastrointestinal Gastrointestinal: Denies abdominal pain, Denies nausea and Denies vomiting Integumentary/Breasts Skin/Breast: Reports rash Neurologic Neurologic: Denies weakness Exam Const General: no acute distress Orientation: alert HENAZ Head: normal to inspection Ears: external ears normal General nose exam: external nose normal Mouth: moist mucous membranes Eyes General: appearance normal, both eyes and all related structures Neck Neck: normal visual inspection Resp Effort & Inspection: normal respiratory effort and able to speak in complete sentences Cardio Rate: regular rate Skin General skin exam: no erythema Neuro General: patient alert and patient oriented x3 Extrem General: full ROM and capillary refill normal Psych Mental Status: mental status grossly normal Course Vital Signs Vital signs: Vital Signs Temperature 36.8 C 09/15/24 14:29 Pulse 90 09/15/24 14:29 Respiratory Rate 14 09/15/24 14:29 Blood Pressure 159/80 H 09/15/24 14:29 Pulse Oximetry 98 09/15/24 14:29 Temperature 36.8 C 09/15/24 14:29 Temperature Source Oral 09/15/24 14:29 Pulse 90 09/15/24 14:29 Respiratory Rate 14 09/15/24 14:29 Blood Pressure 159/80 H 09/15/24 14:29 Blood Pressure Position Sitting 09/15/24 14:29 Pulse Oximetry 98 09/15/24 14:29 Oxygen Delivery Method Room Air 09/15/24 14:29 Oxygen Flow Rate 0 09/15/24 14:29 Pain Level 0 09/15/24 14:29 Medical Decision Making 73-year-old female who was recently admitted for bacteremia due to group B strep and had recurrence show was seen yesterday and had an ultrasound which showed no abscess on the right posterior thigh he was given initial dose of ceftriaxone and was instructed to come back here for another dose of ceftriaxone today. She apparently will be starting infusion room injections of ceftriaxone starting tomorrow. She says she feels well and the leg feels a lot better. She denies any fevers or severe pain. She has marker on the right posterior thigh where the cellulitis was there is not any erythema at all, no warmth, no tenderness. Seems like the cellulitis is significantly improving. Will give a dose of ceftriaxone. Given she feels a lot better I do not feel any other testing is indicated. She will follow-up with PCP and return precautions given patient tolerated the IV ceftriaxone without issues and still feels well. She is stable for discharge and will follow-up with the infusion room and her PCP. Return precautions given Patient tolerated the ceftriaxone well without any issues. She still continues to feel well and appears well. She is stable for discharge home follow-up with the infusion room and her PCP, return precautions given Quality:SDOH Health Related Social Needs: Health related social needs education PFSH All Active Problems (Updated 09/15/24 @ 14:49 by Eros Islas MD) Cellulitis of leg, right (Acute) Cellulitis of left lower extremity (Acute) Bacteremia due to group B Streptococcus (Acute 09/10/24) source indeterminate; 2 sets blood cultures positive with GBS Pain in posterior right lower extremity (Acute) Insomnia (Chronic) Right hand paresthesia (Chronic) HTN (hypertension) (Chronic) Chronic narcotic dependence (Chronic) changed from morphine to buprenorphine Pain from bone metastases (Chronic) hx ofmorphine ER; managed by [facility] heme onc. Now on buprenorphine managed by CM. Radiation vulvitis (Chronic) Onychomycosis (Chronic) GERD (gastroesophageal reflux disease) (Chronic) Medical History (Updated 09/15/24 @ 14:49 by Eros Islas MD) Complete small bowel obstruction s/p ROSALIA 09/04/23 History of radiation therapy Screening for malignant neoplasm of colon performed Hx SBO Multiple hospitalizations. [place] to be due to opioid-induced constipation. Resolves with bowel rest. 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 04/2011 Hyst and BSO at [facility] Path= stage A1, Gr 11 Chronic hepatitis B (12/29/16) Multiple myeloma in remission on revlimid Surgical History (Updated 10/21/23 @ 13:43 by Reyna Abrams MD) S/P exploratory laparotomy (09/2023) for recurrent bowel obstruction History of colonoscopy (~10/2022) Hx of cataract surgery Hx of cholecystectomy S/P hysterectomy History of cholecystectomy H/O breast biopsy Right, 1o'clock, 12cm from nipple, US-guided needle core biopsy: negative for malignancy. fibroadipose tissue with assoc hemorrhage. Family History Mother , AGE 84 No problems noted. Father , AGE 92 No problems noted. Sister , AGE 79 No problems noted. Sister No problems noted. Brother , AGE 68 Stomach cancer Brother No problems noted. Brother No problems noted. Brother No problems noted. Brother No problems noted. Son No problems noted. 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 Pets and animals: No Sexually active: No Do you think of yourself as: straight/heterosexual Current gender identity: female What is your relationship status?: How often do you talk on the phone with friends or family?: three or more times per week How often do you get together with friends or relatives?: decline to answer How often do you attend jainism or taoist services?: decline to answer Do you belong to any clubs or organized social groups?: decline to answer Panel score (0-1 are the most socially isolated patients): 2 What type of physical activity do you participate in: walking and running Duration: 30-45 minutes/day Frequency: 3-4 times per week Christianne/Presybeterian: Jewish Special christianne needs: No Seatbelt use: always Helmet use: Yes Helmet use: always Drive intox or ride w/intox pickup driver: No Working smoke detector in home: Yes Carbon monox detector in home: Yes Firearms in home: Yes Firearms unloaded and locked: Yes Do you feel safe at home: Yes Do you feel safe in your relationship?: Yes Victim of physical abuse: No Victim of emotional abuse: No Victim of sexual abuse: No Would you like helpful sources: No Additional Social history: [employer]
[2024-09-15] MEDS: cefTRIAXone 2 GM/50 ML BAG IVPB (14:51)
[2024-09-15 15:13] VITALS: BP 132/85; PULSE 72; RESP 20; TEMP 36.9; O2SAT 98
== END 2024-09-15 15:23 | disposition home or self-care (01) ==
PROVIDERS: Emergency Provider Emergency Medicine; PCP Family Medicine
DX: L03.115 Cellulitis of right lower limb (principal); R78.81 Bacteremia; B95.1 Streptococcus, group B, as the cause of diseases classified elsewhere
CPT/HCPCS: 99283; 99284; 96365; J0696

== ENCOUNTER 2024-09-20 00:51 | Outpatient (RCR) | payer MEDICARE, BC, SELFPAY ==
[2024-09-16 14:18] VITALS: BP 142/79; PULSE 72; RESP 16; TEMP 36.6; O2SAT 98
[2024-09-16] MEDS: Normal Saline Flush 10 ML SYR IVP (14:20)
[2024-09-16] MEDS: cefTRIAXone 2 GM/50 ML BAG IVPB (14:20)
[2024-09-17] MEDS: cefTRIAXone 2 GM/50 ML BAG IVPB (14:12)
[2024-09-17] MEDS: Normal Saline Flush 10 ML SYR IVP (14:12)
[2024-09-18] MEDS: cefTRIAXone 2 GM/50 ML BAG IVPB (14:02)
[2024-09-18] MEDS: Normal Saline Flush 10 ML SYR IVP (14:41)
[2024-09-19] MEDS: cefTRIAXone 2 GM/50 ML BAG IVPB (14:26)
[2024-09-20] MEDS: cefTRIAXone 2 GM/50 ML BAG IVPB (14:00)
[2024-09-20] MEDS: Normal Saline Flush 10 ML SYR IVP (14:01)
== END 2024-10-01 23:59 | disposition home or self-care (01) ==
LOC: INF 00:51
PROVIDERS: PCP Family Medicine; Visit Provider Family Medicine
DX: B95.1 Streptococcus, group B, as the cause of diseases classified elsewhere (principal); R78.81 Bacteremia
CPT/HCPCS: 96365; J0696

== ENCOUNTER 2024-10-04 02:04 | Outpatient (CLI) | payer MEDICARE, BC, SELFPAY ==
--- NOTE | 2024-10-04 13:57 | DI.US_ITS ---
APPROVED REPORT EXAM: Comprehensive 2D, Doppler, and color-flow Echocardiogram Patient Location: Out-Patient Surface Miner: Deborah Fink RDCS (AE) Indications: Bacteremia, Murmur,Streptococcus Other Information Study Quality: Good Conclusion Normal left ventricular wall thickness and chamber size. EF is 60%. Wall motion is normal Normal right ventricular size and function Both atria are normal in size There are no structural valvular abnormalities Mild mitral and tricuspid regurgitation Estimated right ventricular systolic pressure is 24 mmHg Wall motion Left Ventricle The left ventricle is normal size. The left ventricular systolic function is normal. The left ventricular ejection fraction is within the normal range. There is normal left ventricular wall thickness. There is normal LV segmental wall motion. There is no ventricular septal defect visualized. LVEF is 55-60%. Right Ventricle The right ventricle is normal size. The right ventricular systolic function is normal. Atria The left atrium size is normal. The right atrium size is normal. The interatrial septum is intact with no evidence for an atrial septal defect. Aortic Valve The aortic valve is normal in structure. Aortic valve is trileaflet. There is no aortic valvular stenosis. No aortic regurgitation is present. Mitral Valve The mitral valve is normal in structure. No evidence of mitral valve stenosis. Mild mitral regurgitation. Tricuspid Valve The tricuspid valve is normal in structure. There is no tricuspid valve stenosis. Mild tricuspid regurgitation. The RVSP is 23.5_ mmHg. Pulmonic Valve The pulmonary valve is normal in structure. There is no pulmonic valvular stenosis. Trace pulmonic regurgitation. Great Vessels The aortic root is normal in size. The ascending aorta is minimally dilated. Aortic arch is normal in caliber. IVC is normal in size and collapses >50% with inspiration. Pericardium There is no pericardial effusion. 2D Dimensions IVSD d PLAX 0.80 cm F: 0.6-1.0 Ao Root d 2.77 cm F: 2.7 - 3.3 LVPW d PLAX 0.80 cm F: 0.6 - 1.0 Ao Asc Diam d 3.34 cm F: 2.3 - 3.1 LVID d PLAX 4.51 cm F: 3.8 - 5.2 LVDs 3.10 cm F: 2.2 - 3.5 LV EF Teichholz 60.2 % FS 31.97 % LV EDV (Teich) 92.7 mL LV ESV (Teich) 36.9 mL M-Mode TAPSE 1.50 cm (M/F) >1.7 Auto EF LV EDV A4C 66.7 mL LV EDV A2C 75.4 mL LV EDV BP 70.3 mL LV ESV A4C 30.0 mL LV ESV A2C 34.1 mL LV ESV BP 32.0 mL LVEF(%) A4C 54.9 % LVEF(%) A2C 54.7 % LVEF(%) BP 54.4 % LV SV A4C 36.6 ml LV SV A2C 41.2 ml LV SV BP 38.3 ml LV CO A4C 2.6 L/min LV CO A2C 2.8 L/min LV CO BP 2.7 L/min HR A4C 69.90 BPM HR A2C 67.54 BPM LV EDV Index (BP) LA Volume LA Length A4C 5.5 cm LA Length A2C 4.2 cm LA Area A4C s 15.76 cm2 LA Area A2C s 14.88 cm2 LA Vol A4C A-L 38.42 mL LA Vol A2C A-L 44.38 mL LA Vol Biplane A-L 47.0 mL LA Vol/BSA A4C A-L LA Vol/BSA A2C A-L LA Vol/BSA BP A-L 30.5 mL/m2 LA Vol A4C MOD 35.4 mL LA Vol A2C MOD 39.5 mL LA Vol BP MOD 42.5 mL RA Volume RA Area A4C 11.7 cm2 RA ESV A4C (A-L) 23.2mL RA Vol/BSA A4C A-L RA Length A4C 5.0 cm RA ESV A4C (MOD) 22.4mL LV Diastology MV E' medial 0.072 (>0.07 m/s) MV E Vmax 0.61 (0.4-1.3 m/s) MV E/E' MED 8.45 (<14) MV A Vmax 0.80 (0.4-1.3 m/s) MV E' lateral 0.077 (>0.1 m/s) E/A Ratio 0.8 MV E/E' LAT 7.86 (<14) MV E' Average 0.075 m/s MV E/E'(average) 8.15 Aortic Valve AoV Vmax 1.27 m/s LVOT Vmax 0.90 m/s AoV Peak Grad 6.4 mmHg LVOT Peak Grad 3.2 mmHg AoV Area (Vmax) 2.18 cm2 LVOT VTI 0.229 m AoV VTI 0.300 m LVOT Mean Grad 1.9 mmHg AoV Mean Federico. 0.93 m/s LVOT SV 70.46 mL AoV Mean Grad 3.8 mmHg LVOT Diam s 1.95 cm AoV Area (VTI) 2.35 cm2 AV Regurg Peak Gr. 6.41 mmHg Velocity Ratio 0.71 Mitral Valve MV DT 256 (160-240 msec) MV Vmax TIPS 0.74 m/s MV Mean Grad 0.9 (<2mmHg) MV VTI 0.213 m Pulmonary Valve PV Vmax 0.91 (0.5-1.5 m/s) RVOT Vmax 0.56 m/s PV Peak Grad 3.3 mmHg RVOT Peak Gr. 1.2 mmHg PV Mean Federico 0.55 m/s RVOT VTI 0.154 m PV Mean Grad 1.5 mmHg RVOT Mean Gr. 0.7 mmHg Tricuspid Valve RA Pressure 3.00 mmHg TR Vmax 2.26 m/s TV S' 0.12 m/s TR Peak Grad 20.4 mmHg RVSP (TR) 23.5 mmHg
== END 2024-10-04 02:24 ==
LOC: DI 02:04
PROVIDERS: PCP Family Medicine; Visit Provider Internal Medicine Cardiovascular Disease
DX: R01.1 Cardiac murmur, unspecified (principal); R78.81 Bacteremia; B95.1 Streptococcus, group B, as the cause of diseases classified elsewhere; I08.1 Rheumatic disorders of both mitral and tricuspid valves
CPT/HCPCS: 93306

== ENCOUNTER 2024-10-08 03:36 | Outpatient (CLI) | payer MEDICARE, BC, SELFPAY ==
[2024-10-08 12:45] LABS: Abs Immature Grans 0.01 10^3/uL (0.0-0.06); HCT 34.8 % (36.0-46.0); HGB 12.0 g/dL (11.2-15.7); Immature Grans % 0.3 %; MCH 33.4 pg (27.0-33.0); MCHC 34.5 % (32.0-36.0); MCV 97 fL (80-95); MPV 9.2 fL (8.0-11.0); Platelet Count 163 10^3/uL (130-400); RBC 3.59 10^6/uL (3.93-5.22); RDW 13.0 % (11.7-14.6); RDW-SD 46.0 fL; WBC 3.22 10^3/uL (4.4-10.8)
[2024-10-08 13:37] LABS: ALT 27 U/L (14-59); AST 25 U/L (15-37); Albumin 3.6 g/dL (3.4-5.0); Alkaline Phosphatase 75 U/L (46-116); Anion Gap 5.7 mmol/L (3-11); BUN 17 mg/dL (7-18); Bilirubin, Total 0.5 mg/dL (0.2-1.0); CO2 29.3 mmol/L (21.0-32.0); Calcium 8.8 mg/dL (8.5-10.1); Chloride 97 mmol/L (98-107); Estimated GFR 90.14 (mL/min/1.73m2); Glucose 93 mg/dL (74-106); Potassium 4.3 mmol/L (3.5-5.1); Sodium 132 mmol/L (136-145); Total Protein 7.9 g/dL (6.4-8.2); Vitamin B12 492 pg/mL (193-986)
[2024-10-08 22:40] LABS: Total Protein 7.4 g/dL (6.3-8.2)
[2024-10-09 09:05] LABS: Kappa Free Light Chain 3.47 mg/dL (0.33-1.94); Lambda Free Light Chain 1.47 mg/dL (0.57-2.63)
[2024-10-09 13:32] LABS: Albumin 56.3 % (55.8-66.1); Albumin g/dL 4.2 g/dL (3.6-5.2); Alpha 1 g/dL 0.20 g/dL (0.15-0.40); Alpha 2 g/dL 0.60 g/dL (0.50-1.00); Beta g/dL 1.10 g/dL (0.60-1.20); Gamma g/dL 1.30 g/dL (0.60-1.60)
== END 2024-10-08 03:37 | disposition home or self-care (01) ==
LOC: LBO 03:37
PROVIDERS: PCP Family Medicine; Visit Provider Nurse Practitioner Adult Health
DX: E53.8 Deficiency of other specified B group vitamins (principal); C90.01 Multiple myeloma in remission
CPT/HCPCS: 36415; 80053; 82784; 82607; 83883; 84165; 85025

== ENCOUNTER 2024-11-26 04:40 | Outpatient (CLI) | payer MEDICARE, BC, SELFPAY ==
[2024-11-26 13:18] LABS: Abs Immature Grans 0.01 10^3/uL (0.0-0.06); HCT 32.6 % (36.0-46.0); HGB 11.3 g/dL (11.2-15.7); Immature Grans % 0.4 %; MCH 34.0 pg (27.0-33.0); MCHC 34.7 % (32.0-36.0); MCV 98 fL (80-95); MPV 9.0 fL (8.0-11.0); Platelet Count 181 10^3/uL (130-400); RBC 3.32 10^6/uL (3.93-5.22); RDW 12.3 % (11.7-14.6); RDW-SD 44.3 fL; WBC 2.62 10^3/uL (4.4-10.8)
[2024-11-26 14:03] LABS: ALT 22 U/L (14-59); AST 25 U/L (15-37); Albumin 3.7 g/dL (3.4-5.0); Alkaline Phosphatase 60 U/L (46-116); Anion Gap 6.1 mmol/L (3-11); BUN 13 mg/dL (7-18); Bilirubin, Total 0.5 mg/dL (0.2-1.0); CO2 29.9 mmol/L (21.0-32.0); Calcium 8.8 mg/dL (8.5-10.1); Chloride 98 mmol/L (98-107); Estimated GFR 76.79 (mL/min/1.73m2); Glucose 103 mg/dL (74-106); Potassium 3.9 mmol/L (3.5-5.1); Sodium 134 mmol/L (136-145); Total Protein 7.7 g/dL (6.4-8.2); Vitamin B12 384 pg/mL (193-986)
[2024-11-26 22:07] LABS: Total Protein 7.4 g/dL (6.3-8.2)
[2024-11-27 09:56] LABS: Kappa Free Light Chain 3.75 mg/dL (0.33-1.94); Lambda Free Light Chain 1.41 mg/dL (0.57-2.63)
[2024-11-27 12:22] LABS: Albumin 57.0 % (55.8-66.1); Albumin g/dL 4.2 g/dL (3.6-5.2); Alpha 1 g/dL 0.20 g/dL (0.15-0.40); Alpha 2 g/dL 0.50 g/dL (0.50-1.00); Beta g/dL 1.10 g/dL (0.60-1.20); Gamma g/dL 1.30 g/dL (0.60-1.60)
== END 2024-11-26 04:41 | disposition home or self-care (01) ==
LOC: LBO 04:40
PROVIDERS: PCP Family Medicine; Visit Provider Nurse Practitioner Adult Health
DX: E53.8 Deficiency of other specified B group vitamins (principal); C90.01 Multiple myeloma in remission
CPT/HCPCS: 36415; 80053; 82784; 82607; 83883; 84165; 85025

== ENCOUNTER 2024-12-24 07:33 | Outpatient (CLI) | payer MEDICARE, BC, SELFPAY ==
[2024-12-24 13:19] LABS: Abs Immature Grans 0.00 10^3/uL (0.0-0.06); HCT 32.5 % (36.0-46.0); HGB 11.2 g/dL (11.2-15.7); Immature Grans % 0.0 %; MCH 33.7 pg (27.0-33.0); MCHC 34.5 % (32.0-36.0); MCV 98 fL (80-95); MPV 9.0 fL (8.0-11.0); Platelet Count 201 10^3/uL (130-400); RBC 3.32 10^6/uL (3.93-5.22); RDW 12.3 % (11.7-14.6); RDW-SD 43.8 fL; WBC 3.12 10^3/uL (4.4-10.8)
[2024-12-24 13:40] LABS: ALT 26 U/L (14-59); AST 25 U/L (15-37); Albumin 3.6 g/dL (3.4-5.0); Alkaline Phosphatase 69 U/L (46-116); Anion Gap 4.6 mmol/L (3-11); BUN 15 mg/dL (7-18); Bilirubin, Total 0.3 mg/dL (0.2-1.0); CO2 29.4 mmol/L (21.0-32.0); Calcium 8.9 mg/dL (8.5-10.1); Chloride 98 mmol/L (98-107); Estimated GFR 90.14 (mL/min/1.73m2); Glucose 97 mg/dL (74-106); Potassium 4.3 mmol/L (3.5-5.1); Sodium 132 mmol/L (136-145); Total Protein 7.9 g/dL (6.4-8.2)
[2024-12-25 03:35] LABS: Vitamin B12 420 pg/mL (193-986)
[2024-12-25 10:03] LABS: Kappa Free Light Chain 4.27 mg/dL (0.33-1.94); Lambda Free Light Chain 1.72 mg/dL (0.57-2.63)
[2024-12-25 13:53] LABS: Albumin 54.7 % (55.8-66.1); Albumin g/dL 4.0 g/dL (3.6-5.2); Alpha 1 g/dL 0.20 g/dL (0.15-0.40); Alpha 2 g/dL 0.60 g/dL (0.50-1.00); Beta g/dL 1.20 g/dL (0.60-1.20); Gamma g/dL 1.40 g/dL (0.60-1.60); Total Protein 7.4 g/dL (6.3-8.2)
== END 2024-12-24 07:34 | disposition home or self-care (01) ==
LOC: LBO 07:33
PROVIDERS: PCP Family Medicine; Visit Provider Nurse Practitioner Adult Health
DX: C90.01 Multiple myeloma in remission (principal)
CPT/HCPCS: 36415; 80053; 82784; 82607; 83883; 84165; 85025

== ENCOUNTER 2025-01-21 03:37 | Outpatient (CLI) | payer MEDICARE, BC, SELFPAY ==
[2025-01-21 13:50] LABS: Abs Immature Grans 0.01 10^3/uL (0.0-0.06); HCT 34.9 % (36.0-46.0); HGB 12.1 g/dL (11.2-15.7); Immature Grans % 0.3 %; MCH 34.1 pg (27.0-33.0); MCHC 34.7 % (32.0-36.0); MCV 98 fL (80-95); MPV 9.0 fL (8.0-11.0); Platelet Count 204 10^3/uL (130-400); RBC 3.55 10^6/uL (3.93-5.22); RDW 12.0 % (11.7-14.6); RDW-SD 43.6 fL; WBC 3.01 10^3/uL (4.4-10.8)
[2025-01-21 14:42] LABS: ALT 15 U/L (14-59); AST 22 U/L (15-37); Albumin 3.6 g/dL (3.4-5.0); Alkaline Phosphatase 58 U/L (46-116); Anion Gap 7.8 mmol/L (3-11); BUN 9 mg/dL (7-18); Bilirubin, Total 0.4 mg/dL (0.2-1.0); CO2 28.2 mmol/L (21.0-32.0); Calcium 8.8 mg/dL (8.5-10.1); Chloride 97 mmol/L (98-107); Estimated GFR 90.14 (mL/min/1.73m2); Glucose 86 mg/dL (74-106); Potassium 4.3 mmol/L (3.5-5.1); Sodium 133 mmol/L (136-145); Total Protein 8.0 g/dL (6.4-8.2); Vitamin B12 413 pg/mL (193-986)
[2025-01-23 10:05] LABS: Kappa Free Light Chain 3.99 mg/dL (0.33-1.94); Lambda Free Light Chain 1.54 mg/dL (0.57-2.63)
[2025-01-23 13:56] LABS: Albumin 55.6 % (55.8-66.1); Albumin g/dL 4.5 g/dL (3.6-5.2); Alpha 1 g/dL 0.20 g/dL (0.15-0.40); Alpha 2 g/dL 0.60 g/dL (0.50-1.00); Beta g/dL 1.30 g/dL (0.60-1.20); Gamma g/dL 1.50 g/dL (0.60-1.60); Total Protein 8.1 g/dL (6.3-8.2)
== END 2025-01-21 03:38 | disposition home or self-care (01) ==
LOC: LBO 03:38
PROVIDERS: PCP Family Medicine; Visit Provider Nurse Practitioner Adult Health
DX: C90.01 Multiple myeloma in remission (principal); E53.8 Deficiency of other specified B group vitamins
CPT/HCPCS: 36415; 80053; 82784; 82607; 83883; 84165; 85025

== ENCOUNTER 2025-02-18 02:01 | Outpatient (CLI) | payer MEDICARE, BC, SELFPAY ==
[2025-02-18 13:11] LABS: Abs Immature Grans 0.01 10^3/uL (0.0-0.06); HCT 33.3 % (36.0-46.0); HGB 11.9 g/dL (11.2-15.7); Immature Grans % 0.3 %; MCH 34.1 pg (27.0-33.0); MCHC 35.7 % (32.0-36.0); MCV 95 fL (80-95); MPV 8.9 fL (8.0-11.0); Platelet Count 188 10^3/uL (130-400); RBC 3.49 10^6/uL (3.93-5.22); RDW 12.2 % (11.7-14.6); RDW-SD 42.7 fL; WBC 3.06 10^3/uL (4.4-10.8)
[2025-02-18 13:42] LABS: ALT 17 U/L (10-49); AST 27 U/L (<34); Albumin 4.1 g/dL (3.4-5.0); Alkaline Phosphatase 64 U/L (46-116); Anion Gap 6.4 mmol/L (3-11); BUN 15 mg/dL (9-23); Bilirubin, Total 0.50 mg/dL (0.2-1.2); CO2 28.9 mmol/L (20.0-31.0); Calcium 8.6 mg/dL (8.3-10.6); Chloride 99 mmol/L (98-107); Glucose 86 mg/dL (74-106); Potassium 4.3 mmol/L (3.5-5.1); Sodium 134 mmol/L (136-145); Total Protein 7.7 g/dL (5.7-8.2)
[2025-02-18 13:45] LABS: Vitamin B12 384 pg/mL (211-911)
[2025-02-19 10:41] LABS: Kappa Free Light Chain 3.97 mg/dL (0.33-1.94); Lambda Free Light Chain 1.68 mg/dL (0.57-2.63)
[2025-02-19 15:15] LABS: Albumin 54.0 % (55.8-66.1); Albumin g/dL 4.3 g/dL (3.6-5.2); Alpha 1 g/dL 0.30 g/dL (0.15-0.40); Alpha 2 g/dL 0.60 g/dL (0.50-1.00); Beta g/dL 1.40 g/dL (0.60-1.20); Gamma g/dL 1.40 g/dL (0.60-1.60); Total Protein 8.0 g/dL (6.3-8.2)
== END 2025-02-18 02:02 | disposition home or self-care (01) ==
LOC: LBO 02:02
PROVIDERS: PCP Family Medicine; Visit Provider Nurse Practitioner Adult Health
DX: C90.00 Multiple myeloma not having achieved remission (principal); E53.8 Deficiency of other specified B group vitamins
CPT/HCPCS: 36415; 80053; 82784; 82607; 83883; 84165; 85025

== ENCOUNTER 2025-03-01 21:16 | Outpatient (REF) | payer MEDICARE, BC, SELFPAY ==
[2025-03-01 21:44] LABS: Glucose Negative (Negative)
[2025-03-01 21:53] LABS: WBC Negative HPF (0-5)
== END 2025-03-01 21:17 | disposition home or self-care (01) ==
LOC: LBN 21:16
PROVIDERS: PCP Family Medicine; Visit Provider Family Medicine
DX: R30.0 Dysuria (principal); M54.50 Low back pain, unspecified; R10.A2 Flank pain, left side; R82.89 Other abnormal findings on cytological and histological examination of urine
CPT/HCPCS: 81003; 81015; 87086

== ENCOUNTER → 2025-03-04 12:18 | Outpatient (CLI) | payer MEDICARE, BC, SELFPAY ==
--- NOTE | 2025-03-04 12:15 | DI.CT_ITS ---
Exam(s) CT ABDOMEN PELVIS WO EXAM: CT ABDOMEN PELVIS WO CLINICAL HISTORY: R10.A2 Left flank pain. TECHNIQUE: Imaging Protocol: Axial computed tomography images with coronal and sagittal reformatted images were created and reviewed CONTRAST MATERIAL: Intravenous: none Oral: None COMPARISON: CT CHEST ABD PELVIS WITH CONTRAST from 02/17/[address] ABDOMEN PELVIS W from 05/13/[address] ABDOMEN PELVIS W from 09/04/[address] CHEST/ABD/PEL W from 09/10/2024 FINDINGS: VISUALIZED LUNG BASES: No nodules nor pleural effusions evident. ABDOMEN: There is no ascites. LIVER: There are no obvious focal hepatic lesions evident of this noninfused study. GALLBLADDER/BILIARY: The gallbladder is again noted be surgically absent. CBD is not dilated. PANCREAS: No evidence of pancreatic mass nor dilatation of the pancreatic duct. SPLEEN: Spleen is not enlarged. No obvious intrasplenic lesions. ADRENALS: There are no significant adrenal masses. KIDNEYS:No cysts evident. No solid renal masses. No calculi nor hydronephrosis. . ABDOMINAL AORTA: Abdominal aorta is not enlarged. LYMPH NODES: There is no retroperitoneal nor paraaortic adenopathy. ABDOMINAL WALL: No evidence of significant anterior abdominal wall nor inguinal hernia. GI: 2 adjacent densities in the proximal duodenum measuring approximately 7 and 8 mm. May represent ingested material but cannot exclude polyps at this level. The appendix is surgically absent. Terminal ileum appears unremarkable. There has been partial sigmoid resection. No evidence of bowel obstruction at this level. No evidence of bowel obstruction at this time, as has been present on prior CT scans in 2023. PELVIS: LYMPH NODES: There is no intrapelvic nor inguinal adenopathy. GI: The transverse colon is collapsed as is the splenic flexure and descending- left colon and sigmoid. URINARY BLADDER: The urinary bladder wall is almost uniformly thickened. This represents change from CT scan of September 2024. There are no radiopaque calculi in the bladder. The pelvic ureters are not dilated. REPRODUCTIVE: Uterus is again noted be surgically absent. Density in this region indents the bladder base, slightly more so than previous. OSSEOUS: No acute fractures.. Scoliosis again noted. Mildly expansile bone lesion in the left hemipelvis-left iliac bone again noted, unchanged from CT scan of 09/10/[address] scans of May and September 2023. minimal change from CT scan of 2016. No evidence of cortical breakthrough. No pathologic fractures. IMPRESSION: 1. Compared to the prior CT scans listed above there is now almost informed thickening of the urinary bladder wall. The bladder is minimally distended. No diverticuli. 2. Evidence of previous appendectomy, cholecystectomy, and partial sigmoid resection. There is no evidence of small-bowel obstruction at this time (as has been present on multiple prior CT scans). 3. Left pelvic iliac bone lesion appears stable from numerous prior CT scans. No evidence of pathologic fracture at this level. There is apparently a history of myeloma here, dry from prior reports. RADIATION DOSE DELIVERED: 406.56mGy.cm Total DLP DATA REPOSITORY: All CT scans at this facility are submitted to the National Radiology Data Registry (NRDR) Dose Index Registry (DIR) with the [employer] ([employer]). RADIATION OPTIMIZATION: All CT scans at this facility use at least one of these dose optimization techniques: automated exposure control; mA and/or kV adjustment per patient size (includes targeted exams where dose is matched to clinical indication); or iterative reconstruction.
== END ==
LOC: DI 12:19
PROVIDERS: PCP Family Medicine; Visit Provider Family Medicine
DX: R93.89 Abnormal findings on diagnostic imaging of other specified body structures (principal); R93.49 Abnormal radiologic findings on diagnostic imaging of other urinary organs
CPT/HCPCS: 74176

== ENCOUNTER 2025-03-18 00:45 | Outpatient (CLI) | payer MEDICARE, BC, SELFPAY ==
[2025-03-18 13:19] LABS: Abs Immature Grans 0.01 10^3/uL (0.0-0.06); HCT 36.9 % (36.0-46.0); HGB 12.9 g/dL (11.2-15.7); Immature Grans % 0.3 %; MCH 33.5 pg (27.0-33.0); MCHC 35.0 % (32.0-36.0); MCV 96 fL (80-95); MPV 8.6 fL (8.0-11.0); Platelet Count 179 10^3/uL (130-400); RBC 3.85 10^6/uL (3.93-5.22); RDW 12.9 % (11.7-14.6); RDW-SD 45.1 fL; WBC 3.63 10^3/uL (4.4-10.8)
[2025-03-18 13:43] LABS: ALT 13 U/L (10-49); AST 26 U/L (<34); Albumin 4.2 g/dL (3.2-5.0); Alkaline Phosphatase 71 U/L (46-116); Anion Gap 6.3 mmol/L (3-11); BUN 10 mg/dL (9-23); Bilirubin, Total 0.6 mg/dL (0.2-1.2); CO2 27.5 mmol/L (20.0-31.0); Calcium 8.9 mg/dL (8.3-10.6); Chloride 97 mmol/L (98-107); Glucose 84 mg/dL (74-106); Potassium 4.4 mmol/L (3.5-5.1); Sodium 131 mmol/L (136-145); Total Protein 8.0 g/dL (5.7-8.2)
[2025-03-18 13:45] LABS: Vitamin B12 548 pg/mL (211-911)
[2025-03-19 10:50] LABS: Kappa Free Light Chain 4.49 mg/dL (0.33-1.94); Lambda Free Light Chain 1.65 mg/dL (0.57-2.63)
[2025-03-19 14:51] LABS: Albumin 53.8 % (55.8-66.1); Albumin g/dL 4.4 g/dL (3.6-5.2); Alpha 1 g/dL 0.30 g/dL (0.15-0.40); Alpha 2 g/dL 0.60 g/dL (0.50-1.00); Beta g/dL 1.30 g/dL (0.60-1.20); Gamma g/dL 1.50 g/dL (0.60-1.60); Total Protein 8.1 g/dL (6.3-8.2)
== END 2025-03-18 00:46 | disposition home or self-care (01) ==
LOC: LBO 00:45
PROVIDERS: PCP Family Medicine; Visit Provider Nurse Practitioner Adult Health
DX: C90.00 Multiple myeloma not having achieved remission (principal); E53.8 Deficiency of other specified B group vitamins
CPT/HCPCS: 36415; 80053; 82784; 82607; 83883; 84165; 85025